=== PATIENT | male | born 1960 | race Caucasian/White ===

== ENCOUNTER 2016-02-27 09:26 | Inpatient (IN) | payer BC ==
[~2016-02-27] VITALS: Ht 180.3 cm; Wt 148.4 kg
[2016-02-27] VITALS (7 sets, daily range): BP systolic 110–173; BP diastolic 83–108
[~2016-02-27 09:26] MED LIST: AGM875T PO; ALBU8.5H2 IH; AMOX-358 PO; AMPI250C11 PO; ASPI-586 PO; ATEN-147 PO; B/P MED; CEPH500C PO; D-ME118S33 PO; DILANTIN; DILATIN; DOXY100C2 PO; DOXY100C42 PO; ENOX60DI12 SQ; FLUT16SP22 NS; HCTZ12.5T PO; HYDR-3454 PO; HYDR12.570 PO; HYDR25TA4 PO; LACT1CAP64 PO; LORA10CA PO; METR500T21 PO; MUPI22OI TP; NAPR500T3 PO; ONDA-42 PO; PHEN200C PO; PHEN300C PO; PHENYTEK PO; PHN100C; SULF1TAB35 PO; WARF1TAB PO
--- OUTSIDE RECORDS SUMMARY | 2016-02-27 09:32 | XMS REPORT | Continuity of Care Document ---
Author Author [facility] Organization [facility] Address Unknown Phone Unavailable Care Team Providers Care Border Measurer Name Role Phone BRYCE FORD MD PCP Insurance Providers Payer Name Policy Number [id number] Henry Jr 18 Self / Same As Patient Advance Directives Directive Response Recorded Date/Time Advance Directives Yes 10/17/13 2:11pm Health Care Power of Ethnic Origins Teacher Y DANIEL ATKINS 10/17/13 2:11pm Organ Donor No 10/17/13 2:11pm Problems No known problems or medical conditions. Medications Medication Dose Route Sig Days/Qty Instructions Order Date Discontinued Date Status [Dilatin] 12/23/06 12/23/06 Discontinued [Dilatin ] 12/23/06 01/10/12 Discontinued [Dilantin] 12/23/06 10/11/08 Discontinued Phenytoin Sodium 10/11/08 01/10/12 Discontinued Cephalexin Monohydrate (Keflex) 1 Each PO FOUR TIMES DAILY 40 Qty 10/1101/10/12 Discontinued [B/P Med] 12/02/11 01/10/12 Discontinued Doxycycline Hyclate (Vibramycin) 1 Each PO TWICE A DAY 10 Days 01/10/12 Discontinued Phenytoin Sodium 2 Each PO DAILY 600MG EOD, other 01/10/12 08/16/13 Discontinued Albuterol 2 Puff IH EVERY 4HRS PRN SHORTNESS OF BREATH 01/10/12 Active Hydrochlorothiazide 12.5 Mg PO BEDTIME 01/10/12 10/12/13 Discontinued Fluticasone Propionate 1 [place] NS DAILY PRN NASAL CONGESTION Active [Phenytek] 700 Mg PO DAILY 08/16/13 10/07/13 Discontinued Loratadine 10 Mg PO DAILY PRN CONGESTION NEEDED FOR CONGESTION 10/06 Active Phenytoin Sodium 300 Mg PO BEDTIME 10/07/13 Active Phenytoin Sodium 400 Mg PO BEDTIME TAKE 2 (200MG) CAPSULE WITH 1 (300MG ) [id number] DOSE 10/07/13 Active Atenolol 25 Mg PO DAILY 30 Days 10/13/13 Active Ondansetron Hcl 4 Mg PO EVERY 6 HOURS PRN 20 Qty 10/13/13 Active Hydrocodone Bit/Acetaminophen 1-2 Tab PO EVERY 4HRS PRN PAIN 30 Qty Active Social History Social History Problem Response Recorded Date/Time Alcohol Use Denies Use 10/17/2013 2:11pm Recreational Drug Use No 10/17/2013 2:11pm Recent Foreign Travel No 10/17/2013 2:11pm Recent Infectious Disease Exposure No 10/17/2013 2:11pm Hospitalization with Isolation Denies 10/17/2013 2:11pm Hospital Discharge Instructions No hospital discharge instructions. Plan of Care No plan of care. Functional Status No functional status results. Allergies, Adverse Reactions, Alerts Allergen Type Severity Reaction Status Last Updated No Known Drug Allergies Active 12/23/06 Immunizations Name Given Type Date of Pneumonia Vaccine 11/24/08 Historical Vital Signs No known vital signs results. Results Test Source Date Result Interp. Ref. Range Comments Activated Partial Thromboplast Time December 02, 2011 2:05pm 23 SEC L 24- 35 Alanine Aminotransferase (ALT/SGPT) January 10, 2012 6:01am 37 U/L N 30 -65 Comments to Manager Regional: drawn with iv Albumin January 10, 2012 6:01am 3.7 G/DL N 3.4-5.0 Comments to Manager Regional: drawn with iv Alkaline Phosphatase January 10, 2012 6:01am 144 U/L H 50-136 Comments to Manager Regional: drawn with iv Aspartate Amino Transf (AST/SGOT) January 10, 2012 6:01am 19 U/L N 15- 37 Comments to Manager Regional: drawn with iv BUN/Creatinine Ratio October 21, 2013 11:57am 13 - Band Neutrophils October 08, 2013 5:20am 1 % - Basophils # (Auto) October 08, 2013 5:20am 0.0 10^3/uL N 0.0-0.1 Basophils % (Manual) October 08, 2013 5:20am 0 % - Basophils (%) (Auto) October 08, 2013 5:20am 0 % N 0-10 Blood Urea Nitrogen October 21, 2013 11:57am 11 MG/DL N 7-18 Calcium Level October 21, 2013 11:57am 9.7 MG/DL N 8.5-10.1 Carbon Dioxide Level October 21, 2013 11:57am 24 MMOL/L N 21-32 Chloride Level October 21, 2013 11:57am 107 MMOL/L N 98-107 Cholesterol Level October 08, 2005 11:55am 203 MG/DL H -200 Creatinine October 21, 2013 11:57am 0.82 MG/DL N 0.60-1.30 Eosinophils # (Auto) October 08, 2013 5:20am 0.0 10^3/uL N 0.0-0.3 Eosinophils % (Manual) October 08, 2013 5:20am 0 % - Eosinophils (%) (Auto) October 08, 2013 5:20am 0 % N 0-10 Glucose Level October 21, 2013 11:57am 99 MG/DL N 70-105 HDL Cholesterol October 08, 2005 11:55am 37 MG/ML N 35-60 Hematocrit October 10, 2013 5:30am 32 % L 40-54 Hemoglobin October 10, 2013 5:30am 10.9 G/DL L 13.3-17.7 LDL Cholesterol October 08, 2005 11:55am 133 MG/DL H 0-129 Lymphocytes # (Auto) October 08, 2013 5:20am 1.5 X 10^3 N 1.0-4.0 Lymphocytes % (Manual) October 08, 2013 5:20am 7 % - Lymphocytes (%) (Auto) October 08, 2013 5:20am 12 % N 12-44 Magnesium Level October 21, 2013 11:57am 2.3 MG/DL N 1.8-2.4 Mean Corpuscular Hemoglobin October 10, 2013 5:30am 33 PG N 25-34 Mean Corpuscular Hemoglobin Concent October 10, 2013 5:30am 35 G/DL N 32- 36 Mean Corpuscular Volume October 10, 2013 5:30am 96 FL N 80-99 Mean Platelet Volume October 10, 2013 5:30am 9.4 FL N 7.4-10.4 Monocytes # (Auto) October 08, 2013 5:20am 1.2 X 10^3 H 0.0-1.0 Monocytes % (Manual) October 08, 2013 5:20am 11 % - Monocytes (%) (Auto) October 08, 2013 5:20am 10 % N 0-12 Myoglobin December 02, 2011 2:05pm 36 UG/L N 10-92 Neutrophils # (Auto) October 08, 2013 5:20am 9.7 X 10^3 H 1.8-7.8 Neutrophils % (Manual) October 08, 2013 5:20am 81 % - Neutrophils (%) (Auto) October 08, 2013 5:20am 78 % H 42-75 Phenytoin (Dilantin) Level October 28, 2013 8:30am 8.9 UG/ML L 10.0- 20.0 Comments to Manager Regional: HOME HEALTH TO DRAW Phosphorus Level October 07, 2013 5:05am 2.3 MG/DL N 2.3-4.7 Platelet Count October 10, 2013 5:30am 176 10^3/uL N 130-400 Potassium Level October 21, 2013 11:57am 4.5 MMOL/L N 3.6-5.0 Prostate Specific Antigen October 08, 2005 11:50am 1.01 - PSA EQ NORMAL RANGES MALE 0.0 - 2.50 NG/ML Prothromb Time International Ratio December 02, 2011 2:05pm 0.9 N 0.8- 1.4 INTERPRETIVE DATASUGGESTED THERAPEUTIC RANGE FOR INR'S : VENOUS THROMBOSIS, PULMONARY EMBOLISM, OR PREVENTION OF SYSTEMIC EMBOLISM (EG. IN ATRIAL FIBRILLATION): 2.0 - 3.0 MECHANICAL PROSTHETIC HEART VALVES: 2.5 - 3.5* *NOTE: INR'S UP TO 4.5 MAY BE NECESSARY IN SELECTED GROUPS OF HIGH RISK PATIENTS. [employer] [place] [employer]ANS CONSENSUS CONFERENCE ON ANTITHROMBOTIC THERAPY (2000). Prothrombin Time October 28, 2013 8:30am 25.5 SEC H 12.2-14.7 Comments to Manager Regional: HOME HEALTH TO DRAW Red Blood Count October 10, 2013 5:30am 3.27 10^6/uL L 4.35-5.85 Red Cell Distribution Width October 10, 2013 5:30am 13.8 % N 10.0-14.5 Sodium Level October 21, 2013 11:57am 139 MMOL/L N 135-145 Thyroid Stimulating Hormone (TSH) May 17, 2005 10:25am 1.55 ULU/ML N 0.34-5.60 Total Bilirubin January 10, 2012 6:01am 0.3 MG/DL N 0.0-1.0 Comments to Manager Regional: drawn with iv Total Protein January 10, 2012 6:01am 7.7 G/DL N 6.4-8.2 Comments to Manager Regional: drawn with iv Triglycerides Level October 08, 2005 11:55am 163 MG/DL H 30.0-150.0 Troponin I December 02, 2011 2:05pm < 0.10 NG/ML 0.00-0.10 Urine Bacteria December 23, 2006 9:53pm Negative - Has specimen been collected/obtained? YSpecimen Description VOID Urine Bilirubin December 23, 2006 9:53pm Negative - Has specimen been collected/obtained? YSpecimen Description VOID Urine Casts December 23, 2006 9:53pm None - Has specimen been collected/obtained? YSpecimen Description VOID Urine Clarity December 23, 2006 9:53pm Clear - Has specimen been collected/obtained? YSpecimen Description VOID Urine Color December 23, 2006 9:53pm Yellow - Has specimen been collected/obtained? YSpecimen Description VOID Urine Crystals December 23, 2006 9:53pm None - Has specimen been collected/obtained? YSpecimen Description VOID Urine Culture Indicated December 23, 2006 9:53pm No - Has specimen been collected/obtained? YSpecimen Description VOID Urine Glucose (UA) December 23, 2006 9:53pm Negative - Has specimen been collected/obtained? YSpecimen Description VOID Urine Ketones December 23, 2006 9:53pm Negative - Has specimen been collected/obtained? YSpecimen Description VOID Urine Leukocyte Esterase December 23, 2006 9:53pm Negative - Has specimen been collected/obtained? YSpecimen Description VOID Urine Mucus December 23, 2006 9:53pm Negative - Has specimen been collected/obtained? YSpecimen Description VOID Urine Nitrate December 23, 2006 9:53pm Negative - Has specimen been collected/obtained? YSpecimen Description VOID Urine Protein December 23, 2006 9:53pm Negative - Has specimen been collected/obtained? YSpecimen Description VOID Urine RBC December 23, 2006 9:53pm Rare /HPF - Has specimen been collected/obtained? YSpecimen Description VOID Urine Specific [place] December 23, 2006 9:53pm 1.005 L - Has specimen been collected/obtained? YSpecimen Description VOID Urine Squamous Epithelial Cells December 23, 2006 9:53pm None - Has specimen been collected/obtained? YSpecimen Description VOID Urine Urobilinogen December 23, 2006 9:53pm Normal MG/DL - Has specimen been collected/obtained? YSpecimen Description VOID Urine WBC December 23, 2006 9:53pm Rare /HPF - Has specimen been collected/obtained? YSpecimen Description VOID Urine pH December 23, 2006 9:53pm 7.0 - Has specimen been collected/ obtained? YSpecimen Description VOID VLDL Cholesterol October 08, 2005 11:55am 33 MG/DL N 5-40 Valproic Acid (Depakene) Level January 16, 2013 11:15am < 3.0 MCG/ML L 50.0-100.0 In some psychiatric disorders a therapeutic range si53-975 MCG/ML may be appropriate. White Blood Count October 10, 2013 5:30am 8.0 10^3/uL N 4.3-11.0 Glucometer October 08, 2013 5:23am 135 MG/DL H 70-110 Lab Scanned Report December 02, 2011 1:02pm LAB Reports [id number] - Estimat Glomerular Filtration Rate October 21, 2013 11:57am > 60 - GFR INTERPRETIVE DATA UNITS FOR ESTIMATED GFR (eGFR): mL/min/1.73 M2 REFERENCE RANGE FOR ESTIMATED GFR (eGFR) eGFR NORMAL eGFR >60 MODERATELY DECREASED eGFR 30-59 SEVERLY DECREASED eGFR 15-29 KIDNEY FAILURE <15 (OR DIALYSIS) Blood Morphology Comment October 08, 2013 5:20am NORMAL - Creatine Kinase December 02, 2011 2:05pm 81 U/L N 1-205 Cardiac Panel Pathologist Review December 02, 2011 2:05pm SEE CARDIAC PATH REV - INR Comment October 28, 2013 8:30am 2.4 H 0.8-1.4 INTERPRETIVE DATASUGGESTED THERAPEUTIC RANGE FOR INR'S: VENOUS THROMBOSIS, PULMONARY EMBOLISM, OR PREVENTION OF SYSTEMIC EMBOLISM (EG. IN ATRIAL FIBRILLATION): 2.0 - 3.0 MECHANICAL PROSTHETIC HEART VALVES: 2.5 - 3.5* *NOTE: INR'S UP TO 4.5 MAY BE NECESSARY IN SELECTED GROUPS OF HIGH RISK PATIENTS. [employer] [place] [employer] CONSENSUS CONFERENCE ON ANTITHROMBOTIC THERAPY (2000). MRSA Screen Nasal September 29, 2013 1:05pm MRSA not isolated Gram Stain Bite-Leg, Right October 11, 2008 5:45am Procedures No known history of procedures. Encounters Encounter Location Date/Time Registered Recurring [facility] 11/17/13 8:20am Registered Clinic [facility] 11/11/13 2:00pm Discharged [facility] 11/11/13 8:17am Registered Clinic [facility] 11/09/13 8:06am Registered Clinic [facility] 11/04/13 12:30pm Registered Clinic [facility] 11/02/13 12:00pm Registered Clinic [facility] 10/28/13 8:30am Registered Clinic [facility] 10/21/13 11:46am Discharged Rec[facility]ring [facility] 09/20/13 8:28am
[2016-02-27] MEDS ORDERED: NS IV 1000 ML 1,000 ML IV ONE (09:48)
[2016-02-27 09:59] LABS: BASOPHILS % (AUTO) 0 % (0-10); EOSINOPHILS # (AUTO) 0.1 10^3/uL (0.0-0.3); EOSINOPHILS % (AUTO) 1 % (0-10); LYMPHOCYTES # (AUTO) 2.4 X 10^3 (1.0-4.0); LYMPHOCYTES % (AUTO) 17 % (12-44); MEAN CORPUSCULAR HEMOGLOBIN 33 PG (25-34); MEAN CORPUSCULAR HGB CONC 35 G/DL (32-36); MEAN CORPUSCULAR VOLUME 94 FL (80-99); MEAN PLATELET VOLUME 9.6 FL (7.4-10.4); MONOCYTES # (AUTO) 1.1 X 10^3 (0.0-1.0); MONOCYTES % (AUTO) 8 % (0-12); NEUTROPHILS # (AUTO) 10.5 X 10^3 (1.8-7.8); NEUTROPHILS % (AUTO) 74 % (42-75); PLATELET COUNT 199 10^3/uL (130-400); RED BLOOD COUNT 5.38 10^6/uL (4.35-5.85); RED CELL DISTRIBUTION WIDTH 14.1 % (10.0-14.5); WHITE BLOOD COUNT 14.1 10^3/uL (4.3-11.0)
[2016-02-27 10:16] LABS: ALANINE AMINOTRANSFERASE 45 U/L (0-55); ALBUMIN 3.9 G/DL (3.2-4.5); ANION GAP 14 MMOL/L (5-14); ASPARTATE AMINO TRANSFERASE 37 U/L (5-34); BILIRUBIN,TOTAL 0.5 MG/DL (0.1-1.0); BLOOD UREA NITROGEN 16 MG/DL (7-18); BUN/CREATININE RATIO 20; CALCIUM 9.1 MG/DL (8.5-10.1); CARBON DIOXIDE 18 MMOL/L (21-32); CHLORIDE 107 MMOL/L (98-107); CREATININE SERUM 0.81 MG/DL (0.60-1.30); GFR ESTIMATED > 60; GLUCOSE 108 MG/DL (70-105); SODIUM 139 MMOL/L (135-145); hs C REACTIVE PROTEIN 1.83 MG/DL (0.00-0.50)
--- NOTE | 2016-02-27 10:16 | Diagnostic Imaging Report ---
EXAMINATION: Portable upright radiograph of the chest. INDICATION: Shortness of breath. FINDINGS: There is a 9 mm nodular density in the right upper lobe. Further evaluation with CT is recommended. The heart size is moderately enlarged. There is minimal vascular congestion. No anette pulmonary edema. There is suggestion of mild infiltrate in the lateral aspect of the mid left lung zone. No effusion or pneumothorax. The mediastinum and kevon appear unremarkable. IMPRESSION: 1. Indeterminate 9 mm right upper lobe pulmonary nodule. Further evaluation with a CT scan is recommended. 2. Cardiomegaly with minimal vascular congestion. 3. Suggestion of mild infiltrate in the lateral mid left lung. Dictated by: Dictated on workstation # [id number]
[2016-02-27 10:30] LABS: BAND NEUTROPHILS 2 %; BASOPHILS % (MANUAL) 0 %; EOSINOPHILS % (MANUAL) 0 %; LYMPHOCYTES % (MANUAL) 21 %; NEUTROPHILS % (MANUAL) 72 %
[2016-02-27 10:30] LABS: BILIRUBIN,URINE NEGATIVE (NEGATIVE); KETONES,URINE NEGATIVE (NEGATIVE); LEUKOCYTE ESTERASE ,URINE 1+ (NEGATIVE); NITRITE,URINE NEGATIVE (NEGATIVE); PH,URINE 6 (5-9); PROTEIN,URINE 2+ (NEGATIVE); UROBILINOGEN,URINE NORMAL (NORMAL)
[2016-02-27 10:38] LABS: SQUAMOUS EPITHELIAL CELL,UR RARE /HPF; WBC,URINE RARE /HPF
--- NOTE | 2016-02-27 10:40 | ED General ---
General Chief Complaint: Respiratory Problems Stated Complaint: SOA Nursing Triage Note: PT PICKED UP FROM VEHICLE WITH W/C BY MICHI Cevallos AND THIS RN WITH CC OF SOB, RECENT HX OF BRONCHITIS. Nursing Sepsis Screen: No Definite Risk Source of Information: Patient Exam Limitations: No Limitations History of Present Illness Time Seen by Provider: 09:32 Initial Comments Here with report of bronchitis symptoms for the last 2 weeks and states that he' s had increasing shortness of breath today. States that he is having any use increasing albuterol and that has not helped the shortness of breath. Timing/Duration: 1 Week, Getting Worse Severity: Moderate Associated Systoms: No Chest Pain, Cough Fever/ChillsNo Nausea/Vomiting, Shortness of AirNo Weakness Allergies and Home Medications Allergies Coded Allergies: No Known Drug Allergies (Verified , 12/23/06) Home Medications Amoxicillin/Potassium Clav 1 Each Tablet #14 1 EACH PO BID Prescribed by: INDERJIT DELGADO on 02/19/16 1105 Aspirin 81 Mg Tablet.dr 81 MG PO DAILY (Reported) D-Methorphan Hb/P-Epd HCl/Bpm 118 Ml Syrup #120 5 ML PO Q4H PRN PRN CONGESTION Prescribed by: INDERJIT DELGADO on 02/19/16 1102 Hydrochlorothiazide 25 Mg Tablet 25 MG PO DAILY (Reported) Lactobacillus Combo No.11 1 Each Cap.sprink 1 EACH PO BID (Reported) Phenytoin Sodium Extended 300 Mg Capsule #30 300 MG PO HS (Reported) TAKES WITH 2 (200 MG) CAPS TO EQUAL 700MG TOTAL DOSE Constitutional: see HPI chills fever weakness EENTM: nose congestion see HPI Respiratory: see HPI cough short of breath wheezing Cardiovascular: see HPINo chest pain, No edema Gastrointestinal: no symptoms reportedNo nausea, No vomiting Genitourinary: no symptoms reported Musculoskeletal: no symptoms reportedNo back pain, No muscle pain Skin: no symptoms reported Psychiatric/Neurological: No Symptoms Reported All Other Systems Reviewed Negative Unless Noted: Yes Past Bpgrcpv-Gsdnne-Bveyic Hx Patient Social History Alcohol Use: Denies Use Recreational Drug Use: No Smoking Status: Never a Smoker Recent Foreign Travel: No Contact w/Someone Who Travel: No Recent Infectious Disease Expo: No Recent Hopitalizations: Yes (, FISTULA REPAIR) Physical Abuse Screen: No Sexual Abuse: No Immunizations Up To Date Tetanus Booster (TDap): More than 5yrs Date of Pneumonia Vaccine: Nov 24, 2008 Date of Influenza Vaccine: Feb 22, 2014 Seasonal Allergies Seasonal Allergies: Yes Surgeries HX Surgeries: Yes (BOWEL RESECT/COLOSTOMY/REVERSAL,VENTRAL HERNIA, BACK,TENDON/ HAND REPAIR ) Surgeries: Abdominal, Bowel Surgery, Orthopedic Respiratory Hx Respiratory Disorders: Yes Respiratory Disorders: Pulmonary Embolism Cardiovascular Hx Cardiac Disorders: Yes Cardiac Disorders: Deep Vein Thrombosis, Hypertension Neurological Hx Neurological Disorders: Yes (NO SEIZURE FOR SEVERAL YEARS BUT TAKES MEDICINE ) Neurological Disorders: Seizure Disorder Reproductive System Hx Reproductive Disorders: No Genitourinary Hx Genitourinary Disorders: Yes Genitourinary Disorders: Kidney Stones Gastrointestinal Hx Gastrointestinal Disorders: Yes (COLON RESECTION/ILEOSTOMY/REVERSAL. CHRONIC ABDOMINAL WOUND) Gastrointestinal Disorders: Diverticulosis Musculoskeletal Hx Musculoskeletal Disorders: Yes (ARTHRITIS IN FEET AND BACK) Musculoskeletal Disorders: Arthritis, Chronic Back Pain Endocrine Hx Endocrine Disorders: Yes (MORBID OBESITY) HEENT HX ENT Disorders: Yes (GLASSES) Cancer Hx Cancer: No Psychosocial Hx Psychiatric Problems: Yes Behavioral Health Disorders: Anxiety Integumentary HX Skin/Integumentary Disorder: Yes (CHRONIC POST-OP ABDOMINAL WOUND) Blood Transfusions Hx Blood Disorders: No Reviewed Nursing Assessment Reviewed/Agree w Nursing PMH: Yes Family Medical History Significant Family History: Heart Disease, Cancer, Hypertension, Psychiatric Problems Family Medial History: Arthritis G8 SISTER Asthma G8 SISTER Colon cancer 19 MOTHER FH: breast cancer 19 MOTHER Heart attack 19 FATHER Hypertension G8 SISTER Psychosocial problem G8 BROTHER (DOWN'S SYNDROME) No Family History of: AIDS Alcoholism Alzheimer's disease Completed stroke Diabetes mellitus Kidney disease Myocardial infarction Parkinson's disease Prostate cancer Respiratory disorder Seizure disorder Thyroid disease Physical Exam-Suspected Sepsis Physical Exam Vital Signs Vital Sign - Last 12Hours 02/27/16 09:29 Temp 97.8 Pulse 118 Resp 24 B/P 154/125 Pulse Ox 91 O2 Delivery Room Air O2 Flow Rate 2 Capillary Refill : Less Than 3 Seconds Blood Pressure Mean: 135 General Appearance: No Apparent Distress HEENT: PERRL/EOMI Pharynx Normal Neck: Non Tender Supple Respiratory: Lungs Clear Normal Breath Sounds Cardiovascular: No Murmur Tachycardia Gastrointestinal: Non Tender Soft Back: Normal Inspection No CVA Tenderness No Vertebral Tenderness Extremity: Non Tender No Calf Tenderness Neurologic/Psychiatric: Alert Oriented x3 Skin: normal color warm/dryNo rash Progress/Results/Core Measures Suspected Sepsis Recent Fever Within 48 Hours: No Infection Criteria Present: None New/Unexplained Altered Menta: No Sepsis Screen: No Definite Risk Sepsis Diagnosis: SIRS Temperature:97.8 Pulse: 118 Respiratory Rate: 24 Laboratory Tests 02/27/16 09:50: White Blood Count 14.1H Blood Pressure 154 /125 Mean: 135 Laboratory Tests 02/27/16 09:30: INR Comment 0.9 02/27/16 09:50: Creatinine 0.81, Platelet Count 199, Total Bilirubin 0.5 Results/Orders Lab Results Laboratory Tests Test 02/27/16 09:30 02/27/16 09:50 02/27/16 10:20 Range/Units Activated Partial Thromboplast Time 23 L 24-35 SEC INR Comment 0.9 0.8-1.4 Prothrombin Time 11.9 L 12.2-14.7 SEC Alanine Aminotransferase (ALT/SGPT) 45 0-55 U/L Albumin 3.9 3.2-4.5 G/DL Alkaline Phosphatase 147 H 40-136 U/L Anion Gap 14 5-14 MMOL/L Aspartate Amino Transf (AST/SGOT) 37 H 5-34 U/L BUN/Creatinine Ratio 20 Band Neutrophils 2 % Basophils # (Auto) 0.0 0.0-0.1 10^3/uL Basophils % (Manual) 0 % Basophils (%) (Auto) 0 0-10 % Blood Morphology Comment NORMAL Blood Urea Nitrogen 16 7-18 MG/DL C-Reactive Protein High Sensitivity 1.83 H 0.00-0.50 MG/DL Calcium Level 9.1 8.5-10.1 MG/DL Carbon Dioxide Level 18 L 21-32 MMOL/L Chloride Level 107 98-107 MMOL/L Creatinine 0.81 0.60-1.30 MG/DL Eosinophils # (Auto) 0.1 0.0-0.3 10^3/uL Eosinophils % (Manual) 0 % Eosinophils (%) (Auto) 1 0-10 % Estimat Glomerular Filtration Rate > 60 Glucose Level 108 H 70-105 MG/DL Hematocrit 50 40-54 % Hemoglobin 17.7 13.3-17.7 G/DL Lactic Acid Level 2.8 *H 0.5-2.0 MMOL/L Lymphocytes # (Auto) 2.4 1.0-4.0 X 10^3 Lymphocytes % (Manual) 21 % Lymphocytes (%) (Auto) 17 12-44 % Mean Corpuscular Hemoglobin 33 25-34 PG Mean Corpuscular Hemoglobin Concent 35 32-36 G/DL Mean Corpuscular Volume 94 80-99 FL Mean Platelet Volume 9.6 7.4-10.4 FL Monocytes # (Auto) 1.1 H 0.0-1.0 X 10^3 Monocytes % (Manual) 5 % Monocytes (%) (Auto) 8 0-12 % Neutrophils # (Auto) 10.5 H 1.8-7.8 X 10^3 Neutrophils % (Manual) 72 % Neutrophils (%) (Auto) 74 42-75 % Platelet Count 199 130-400 10^3/uL Potassium Level 4.0 3.6-5.0 MMOL/L Red Blood Count 5.38 4.35-5.85 10^6/uL Red Cell Distribution Width 14.1 10.0-14.5 % Sodium Level 139 135-145 MMOL/L Total Bilirubin 0.5 0.1-1.0 MG/DL Total Protein 8.0 6.4-8.2 G/DL White Blood Count 14.1 H 4.3-11.0 10^3/uL Urine Bacteria NEGATIVE /HPF Urine Bilirubin NEGATIVE NEGATIVE Urine Casts NONE /LPF Urine Clarity CLEAR Urine Color YELLOW Urine Crystals NONE /LPF Urine Culture Indicated NO Urine Glucose (UA) NEGATIVE NEGATIVE Urine Ketones NEGATIVE NEGATIVE Urine Leukocyte Esterase 1+ H NEGATIVE Urine Mucus SMALL H /LPF Urine Nitrite NEGATIVE NEGATIVE Urine Protein 2+ H NEGATIVE Urine RBC NONE /HPF Urine RBC (Auto) NEGATIVE NEGATIVE Urine Specific [place] 1.025 H 1.016-1.022 Urine Squamous Epithelial Cells RARE /HPF Urine Urobilinogen NORMAL NORMAL MG/DL Urine WBC RARE /HPF Urine pH 6 5-9 My Orders Orders-JEROMY OCAMPO MD Cbc With Automated Diff (02/27/16 09:48) Comprehensive Metabolic Panel (02/27/16 09:48) Hs C Reactive Protein (02/27/16 09:48) Lactic Acid Analyzer (02/27/16 09:48) Ua Culture If Indicated (02/27/16 09:48) Blood Culture (02/27/16 09:48) Influenza A And B Antigens (02/27/16 09:48) Sputum Culture (02/27/16 09:48) Chest 1 View, Ap/Pa Only (02/27/16 09:48) Ekg Tracing (02/27/16 09:48) O2 (02/27/16 09:48) Monitor-Rhythm Ecg Trace Only (02/27/16 09:48) Saline Lock/Iv-Start (02/27/16 09:48) Ns Iv 1000 Ml (Sodium Chloride 0.9%) (02/27/16 09:48) Manual Differential (02/27/16 09:50) Ct Angio Chest W (02/27/16 11:00) Iohexol Injection (Omnipaque 350 Mg/Ml 1 (02/27/16 11:15) Ns (Ivpb) (Sodium Chloride 0.9% Ivpb Bag (02/27/16 11:15) Protime With Inr (02/27/16 11:30) Partial Thromboplastin Time (02/27/16 11:30) Heparin (Bolus Per Protocol) (Heparin (B (02/27/16 11:45) Heparin (Bolus Per Protocol) (Heparin (B (02/27/16 11:27) Heparin Drip [id number] Unit/500ml (Heparin (02/27/16 11:27) Medications Given in ED Current Medications Medications Dose Ordered Sig/Giles Route Start Time Stop Time Status Last Admin Dose Admin Heparin Sodium (Porcine) HEPARIN FULL PROTOC... ONCE ONCE IV 02/27/16 11:45 02/27/16 11:46 DC 02/27/16 11:44 5,000 UNIT Iohexol 150 ml ONCE ONCE IV 02/27/16 11:15 02/27/16 11:28 DC 02/27/16 11:16 140 ML Sodium Chloride 100 ml ONCE ONCE IV 02/27/16 11:15 02/27/16 11:28 DC 02/27/16 11:16 80 ML Sodium Chloride 1,000 ml @ 0 mls/hr Q0M ONCE IV 02/27/16 09:48 02/27/16 09:51 DC 02/27/16 09:59 1,000 MLS/HR Vital Signs/I&O Vital Sign - Last 12Hours 02/27/16 09:29 Temp 97.8 Pulse 118 Resp 24 B/P 154/125 Pulse Ox 91 O2 Delivery Room Air O2 Flow Rate 2 Capillary Refill : Less Than 3 Seconds Blood Pressure Mean: 135 Progress Note : Progress Note Seen and evaluated. IV, labs, chest x-ray, UA, normal saline 1 L bolus ordered. Monitor patient. Blood cultures and lactic acid were ordered. Patient's lactic acid is elevated. Heart rate improved with fluids. Findings concerning for pulmonary embolism and there is a lung nodule that is requiring further evaluation with CT. We will do CT angiogram of the chest. ECG Initial ECG Impression Date: Feb 27, 2016 Initial ECG Impression Time: 09:37 Initial ECG Rate: 116 Initial ECG Rhythm: S.Tach Comment Sinus tachycardia with rightward axis. No evidence of ST elevation SC. Similar to previous but increased rate. Interpreted by me. Diagnostic Imaging Diagonstic Imaging: Xray Plain Films/CT/US/NM/MRI: chest Comments [place] NAME: [facility] REC#: [id number] PT STATUS: REG ER : 1960 PHYSICIAN: JEROMY OCAMPO MD ADMIT DATE: 02/27/16/ER Draft Date of Exam:02/27/16 CHEST 1 VIEW, AP/PA ONLY EXAMINATION: Portable upright radiograph of the chest. INDICATION: Shortness of breath. FINDINGS: There is a 9 mm nodular density in the right upper lobe. Further evaluation with CT is recommended. The heart size is moderately enlarged. There is minimal vascular congestion. No anette pulmonary edema. There is suggestion of mild infiltrate in the lateral aspect of the mid left lung zone. No effusion or pneumothorax. The mediastinum and kevon appear unremarkable. IMPRESSION: 1. Indeterminate 9 mm right upper lobe pulmonary nodule. Further evaluation with a CT scan is recommended. 2. Cardiomegaly with minimal vascular congestion. 3. Suggestion of mild infiltrate in the lateral mid left lung. Dictated on workstation # [id number] Dict: 02/27/16 1006 Trans: 02/27/16 1016 [id number] Interpreted by: KARLY ZHAO MD Electronically signed by: Departure Communication Time/Spoke to Admitting Phy: 11:40 Impression Impression: Primary Impression: Bilateral pulmonary embolism Additional Impression: Hypoxia Disposition: ADMITTED INPATIENT Condition: Critical Decision to Admit Reason: Admit from ER (General) Decision to Admit/Date: Feb 27, 2016 Time/Decision to Admit Time: 11:40 Departure-Patient Inst. Referrals: INGRID DOSHI MD (PCP/Family) Primary Care Physician JEROMY OCAMPO MD Feb 27, 2016 10:40
[2016-02-27] MEDS ORDERED: NS 100 ML (IVPB) BAG IV ONE (11:15)
[2016-02-27] MEDS ORDERED: IOHEXOL 350 MG/ML 150 ML (OMNIPAQUE 350) VIAL IV ONE (11:15)
[2016-02-27] MEDS ORDERED: HEParin DRIP 25000 UNIT/500ML 500 ML IV ONE (11:27)
[2016-02-27] MEDS ORDERED: HEParin 1000 UNIT/ML (10ML VIAL) FOR BOLUS ONE (11:27)
[2016-02-27 11:45] LABS: INR 0.9 (0.8-1.4); PROTHROMBIN TIME PATIENT 11.9 SEC (12.2-14.7)
[2016-02-27] MEDS ORDERED: HEParin 1000 UNIT/ML (10ML VIAL) FOR BOLUS IV ONE (11:45)
--- NOTE | 2016-02-27 11:50 | Diagnostic Imaging Report ---
PROCEDURE: CT angiography of the chest with contrast. TECHNIQUE: Multiple contiguous axial images were obtained through the chest after uneventful bolus administration of intravenous contrast. Reconstructed CTA MIP acquisitions were also performed. INDICATION: Shortness of breath. Questionable lung nodule in the right lung apex. 140 mL of Omnipaque 350 is administered intravenously. FINDINGS: There is a large burden of pulmonary embolism seen bilaterally with a saddle embolus at the bifurcation of the pulmonary trunk extending to the main pulmonary arteries and to lobar, segmental, and subsegmental levels on both sides involving nearly all segments. This is associated with increased RV/ LV ratio, more than 1.1, suggestive of right ventricular strain. The thoracic aorta is normal in caliber. There is no dissection. There is no mediastinal mass and no lymphadenopathy in the mediastinum or in the kevon. No lymphadenopathy in the axilla. There are groundglass pulmonary opacities in the right upper lobe and in the lingula presumably related to minor infarcts or pneumonitis. No suspicious nodule or mass. The osseous structures demonstrate suggestion of vertebral body multiple hemangiomas in the thoracic spine with no aggressive destructive mass, however, identified. There is an incidental right adrenal nodule measuring 2.1 cm, in the absence of history of primary malignancy, more likely to be an adrenal adenoma. IMPRESSION: 1. Large burden of pulmonary embolism with suggestion of right ventricular strain. 2. Mild peripheral pulmonary opacities in the lingula and right upper lobe are probably related to tiny pulmonary infarcts. 3. Incidental note of a 2.1-cm right adrenal nodule. In the absence of history of primary malignancy, this is more likely to be an incidental adenoma. Dictated by: Dictated on workstation # [id number]
[2016-02-27] MEDS ORDERED: CATHETER FLUSH 10 ML SYR IV PRN (14:00)
[2016-02-27] MEDS ORDERED: RT-ALBUTEROL SULF 2.5 MG/3 ML PRE-MIX VIAL ONE (14:04)
[2016-02-27] MEDS ORDERED: RT-ALBUTEROL SULF 2.5 MG/3 ML PRE-MIX VIAL INH PRN (14:15)
[2016-02-27] MEDS ORDERED: PRD20T PO (14:19)
[2016-02-27] MEDS ORDERED: NAPR500T3 PO (14:19)
[2016-02-27] MEDS ORDERED: RT-ALBUINH IH (14:19)
[2016-02-27] MEDS ORDERED: AMOX-358 PO (14:19)
[2016-02-27] MEDS ORDERED: ASPI325T32 PO (14:19)
[2016-02-27] MEDS ORDERED: PHEN200C PO (14:19)
[2016-02-27] MEDS ORDERED: BUDE10.2 IH (14:19)
[2016-02-27] MEDS: NS IV 1000 ML 1,000 ML IV SCH (15:47)
--- NOTE | 2016-02-27 16:44 | History & Physicial ---
History of Present Illness History of Present Illness Reason for visit/HPI PT IS A 55 Y/O MALE WHO IS KNOWN TO ME FROM CLINIC. THE PATIENT REPORTS THAT HE HAS NOT BEEN FEELING WELL FOR SEVERAL WEEKS. APPARENTLY, AZAM WENT TO THE HOSPITAL AFTER ALIA DUE TO PERSISTENT COUGHING AND FATIGUE. HE STATES THAT HE WAS GIVEN ANTIBIOTICS, INFORMED THAT HE HAD BRONCHITIS AND HE IMPROVED SLIGHTLY WITH THE ANTIBIOTICS. HE WAS FEELING BETTER WHEN HE WENT TO MY OFFICE LAST WEEK FOR A "QUICK CHECK ON MY LUNGS BEFORE NEW YEARS". HE STATES THAT HE HAD BEEN FEELING A LITTLE BIT BETTER, AFTER BEING SEEN LAST FRIDAY, THEN OVER THE WEEKEND HE STARTED TO GET FATIGUED AGAIN AND SHORT OF BREATH. HE REPORTS THAT LAST NIGHT HIS SHORTNESS OF BREATH BECAME RATHER EXTREME AND WAS FEELING SO POORLY THAT HE DECIDED TO GO TO THE EMERGENCY DEPARTMENT FOR FURTHER EVALUATION. HE WAS FOUND TO HAVE AN ABNORMALITY ON CT SCAN, THEN A CT ANGIO SHOWED A SADDLE EMBOLUS IN HIS PULMONARY ARTERY. AZAM WAS STARTED ON IV HEPARIN DRIP AND ADMITTED TO THE ICU FOR FURTHER WORK-UP. Date of Admission Feb 27, 2016 at 12:11 I consulted on this patient on 02/27/16 16:44 Attending Physician Ingrid Salamanca MD Admitting Physician Ingrid Salamanca MD Consult SAE RODAS DO Allergies and Home Medications Allergies Coded Allergies: No Known Drug Allergies (Verified , 12/23/06) Home Medications Albuterol Sulfate 18 Gm Hfa.aer.ad 1 PUFF IH Q4H PRN PRN SHORTNESS OF BREATH ( Reported) Amoxicillin/Potassium Clav 1 Each Tablet 1 TAB PO BID (Reported) #14 FILLED 02-19-16 AND #6 FILLED 02-24-16 Aspirin 325 Mg Tablet.dr 325 MG PO HS (Reported) Budesonide/Formoterol Fumarate 10.2 Gm Hfa.aer.ad 1 PUFF IH BID (Reported) D-Methorphan Hb/P-Epd HCl/Bpm 118 Ml Syrup #120 5 ML PO Q4H PRN PRN CONGESTION Prescribed by: INDERJIT DELGADO on 02/19/16 1102 Hydrochlorothiazide 25 Mg Tablet 25 MG PO HS (Reported) Lactobacillus Combo No.11 1 Each Cap.sprink 1 CAP PO BID (Reported) Naproxen 500 Mg Tablet 500 MG PO BID PRN PRN PAIN (Reported) Phenytoin Sodium Extended 300 Mg Capsule #30 300 MG PO HS (Reported) TAKES WITH 2 (200 MG) CAPS TO EQUAL 700MG TOTAL DOSE Phenytoin Sodium Extended 200 Mg Capsule 400 MG PO HS (Reported) TAKES 2 (200MG) CAPSULES ALONG WITH A 300MG FOR A TOTAL DAILY DOSE OF 700MG Prednisone 20 Mg Tab 5Days 40 MG PO (Reported) #10 TABS FILLED 02-23-16 TAKES 2 (20MG) TABLETS Past Yvsecov-Ixrlxe-Awjymc Hx Patient Social History Marrital Status: Number of Children: 0 Number of living children: 0 Living Status: LIVES AT HOME WITH HIS SPOUSE Employed/Student: employed Alcohol Use: Denies Use Recreational Drug Use: No Smoking Status: Never a Smoker 2nd Hand Smoke Exposure: No Physical Abuse Screen: No Sexual Abuse: No Recent Foreign Travel: No Contact w/other who traveled: No Recent Hopitalizations: Yes (, FISTULA REPAIR) Recent Infectious Disease Expo: No Immunizations Up To Date Tetanus Booster (TDap): More than 5yrs Date of Pneumonia Vaccine: Nov 24, 2008 Date of Influenza Vaccine: Feb 22, 2014 Seasonal Allergies Seasonal Allergies: Yes Surgeries HX Surgeries: Yes (BOWEL RESECT/COLOSTOMY/REVERSAL,VENTRAL HERNIA, BACK,TENDON/ HAND REPAIR ) Surgeries: Abdominal, Bowel Surgery, Orthopedic Respiratory Hx Respiratory Disorders: Yes Cardiovascular Hx Cardiovascular Disorders: Yes Cardiac Disorders: Deep Vein Thrombosis, Hypertension Neurological Hx Neurological Disorders: Yes (NO SEIZURE FOR SEVERAL YEARS BUT TAKES MEDICINE ) Neurological Disorders: Seizure Disorder Reproductive System Hx Reproductive Disorders: No Genitourinary Hx Genitourinary Disorders: Yes Genitourinary Disorders: Kidney Stones Gastrointestinal Hx Gastrointestinal Disorders: Yes (COLON RESECTION/ILEOSTOMY/REVERSAL. CHRONIC ABDOMINAL WOUND) Gastrointestinal Disorders: Diverticulosis Musculoskeletal Hx Musculoskeletal Disorders: Yes (ARTHRITIS IN FEET AND BACK) Musculoskeletal Disorders: Arthritis, Chronic Back Pain Endocrine Hx Endocrine Disorders: Yes (MORBID OBESITY) HEENT HX ENT Disorders: Yes (GLASSES) Cancer Hx Cancer: No Psychosocial Hx Psychiatric Problems: Yes Behavioral Health Disorders: Anxiety Integumentary HX Skin/Integumentary Disorder: Yes (CHRONIC POST-OP ABDOMINAL WOUND) Blood Transfusions Hx Blood Disorders: No Adverse Reaction to a Blood Tr: No Reviewed Nursing Assessment Reviewed/Agree w Nursing PMH: Yes Family Medical History Significant Family History: Heart Disease, Cancer, Hypertension, Psychiatric Problems Family Hx: Arthritis G8 SISTER Asthma G8 SISTER Colon cancer 19 MOTHER FH: breast cancer 19 MOTHER Heart attack 19 FATHER Hypertension G8 SISTER Psychosocial problem G8 BROTHER (DOWN'S SYNDROME) No Family History of: AIDS Alcoholism Alzheimer's disease Completed stroke Diabetes mellitus Kidney disease Myocardial infarction Parkinson's disease Prostate cancer Respiratory disorder Seizure disorder Thyroid disease Constitutional: No chills, diaphoresisNo dizziness, No fever, malaise weakness EENTM: No hoarseness, No mouth pain, No nose pain, No throat pain, No throat swelling Respiratory: cough dyspnea on exertion orthopnea short of breath Cardiovascular: No chest pain, No edema, No palpitations, No syncope Gastrointestinal: No abdominal pain, No constipation, diarrhea (LOOSE STOOLS FOR 2-3 DAYS) Genitourinary: No frequency, No hematuria, No hesitancy, No incontinence, No nocturia Musculoskeletal: No back pain, No joint pain, No joint swelling, No muscle pain , No muscle weakness Skin: No lesions, No rash Psychiatric/Neurological: Denies Anxiety, Denies Depressed, Seizure (HX OF SEIZURE DISORDER) All Other Systems Reviewed Negative Unless Noted: Yes Physical Exam Vital Signs Vital Sign - Last 12Hours 02/27/16 09:29 Temp 97.8 Pulse 118 Resp 24 B/P 154/125 Pulse Ox 91 O2 Delivery Room Air O2 Flow Rate 2 Capillary Refill : Less Than 3 Seconds General Appearance: WD/WN Mild Distress Obese Eyes: Bilateral Eye EOMI, Bilateral Eye Normal Inspection, Bilateral Eye PERRL HEENT: PERRL/EOMI Pharynx Normal Neck: Full Range of Motion Supple Respiratory: Chest Non Tender Decreased Breath Sounds Other (TACHYPNEA) Cardiovascular: Regular Rate, Rhythm No Edema Gastrointestinal: Normal Bowel Sounds No Organomegaly No Pulsatile Mass Non Tender Soft Rectal: Deferred Back: Normal Inspection No CVA Tenderness No Vertebral Tenderness Extremity: Normal Capillary Refill Normal Range of Motion Non Tender No Calf Tenderness No Pedal Edema Neurologic/Psychiatric: Alert Oriented x3 No Motor/Sensory Deficits 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 DR. RODAS TO EVAL PT TOMORROW MORNING. THE PATIENT IS ON PHENYTEK FOR SEIZURE DISORDER, HAS BEEN ON THIS MEDICATION FOR YEARS WITH EXCELLENT SEIZURE CONTROL. HE IS NOT WILLING TO STOP THIS MEDICATION FOR HIS ANTICOAGULANT. I HAVE REVIEWED THE MEDICATION PROFILE FOR PHENYTEK AND ALL OF THE AVAILABLE ORAL ANTICOAGULANTS. EACH OF THE ORAL ANTICOAGULANTS HAVE INTERACTIONS WITH PHENYTOIN/PHENYTEK - XARELTO APPEARS TO BE THE BEST OPTION - RECOMMENDATIONS ARE FOR INCREASED DOSE OF XARELTO IF THE PHENYTOIN MUST BE CO-ADMINISTERED. THE REPORTS SHOW THAT PHENYTOIN AND COUMADIN CO-ADMINISTRATION WILL INCREASE ANTICOAGULANT EFFETS, THEN DECREASE THE EFFECTS IF USED FOR MORE THAN 2 WEEKS WITH "ADDITIVE EFFECTS" ON PT/INR. I WILL DISCUSS THIS WITH PHARMACY TOMORROW. DYSPNEA - IMPROVED WITH OXYGEN. HYPERTENSION - WILL MONITOR SYMPTOMS - MAY RESTART HOME ANTIHYPERTENSIVES TOMORROW. GI PROPHYLAXIS - START PROTONIX PO BID. PT ON HEPARIN FOR TREATMENT OF PULMONARY EMBOLUS - WILL ORDER ULTRASOUND OF BILATERAL LOWER EXTREMITIES - THEREFORE NO USE OF SCD'S. Admission Diagnosis PULMONARY EMBOLUS DYSPNEA RECENT BRONCHITIS SEIZURE DISORDER HYPERTENSION INGRID SALAMANCA MD Feb 27, 2016 16:44
[2016-02-27] MEDS ORDERED: BPM PO PRN (17:30)
[2016-02-27] MEDS ORDERED: [UNRECOGNIZED DRUG - OTHER] PO PRN (17:30)
[2016-02-27] MEDS ORDERED: P EPD HCL PO PRN (17:30)
[2016-02-27] MEDS ORDERED: D METHORPHAN HB PO PRN (17:30)
[2016-02-27] MEDS ORDERED: PATIENT MAY USE OWN MED,SINGLE MED PO SCH ×2 (17:30)
[2016-02-27] MEDS: LACTOBACILLUS Acidoph/Bulgar (LACTINEX/FLORANEX) TAB PO SCH ×2 (18:00→21:42)
[2016-02-27] MEDS: HEParin 1000 UNIT/ML (10ML VIAL) FOR BOLUS IV SCH (18:01)
--- NOTE | 2016-02-27 18:43 | Diagnostic Imaging Report ---
INDICATION: Pulmonary embolus COMPARISON: None FINDINGS: There is occlusive thrombus seen within the popliteal veins bilaterally involving about 7 cm of vein on the right and 5 cm on the left. The superficial femoral and common femoral veins bilaterally appear compressible and patent. IMPRESSION: There is occlusive deep venous thrombosis involving the popliteal veins bilaterally. Dictated by: Dictated on workstation # [id number]
[2016-02-27] MEDS: RT-ADVAIR HFA 115/21 MCG PER PUFF IH SCH (19:07)
[2016-02-27] MEDS ORDERED: ALPRAZolam 0.5 MG (XANAX) TAB ONE (19:58)
[2016-02-27] MEDS ORDERED: ALPRAZolam 0.5 MG (XANAX) TAB PO NR (20:15)
[2016-02-27] MEDS ORDERED: [UNRECOGNIZED DRUG - OTHER] PO SCH ×2 (21:00)
[2016-02-27] MEDS ORDERED: LACTOBACILLUS Acidoph/Bulgar (LACTINEX/FLORANEX) TAB PO SCH (21:00)
[2016-02-27] MEDS: PANTOPRAZOLE 40 MG (PROTONIX) TAB PO SCH (21:41)
[2016-02-27] MEDS: PHENYTOIN 200 MG PO SCH (21:42)
[2016-02-27] MEDS: PHENYTEK PO SCH (21:42)
[2016-02-27] MEDS: ASPIRIN E.C. 325 MG (ECOTRIN) TABLET PO SCH (21:42)
[2016-02-27] MEDS: RT-ALBUTEROL SULF 2.5 MG/3 ML PRE-MIX VIAL INH SCH (22:48)
[2016-02-28] VITALS (11 sets, daily range): BP systolic 109–145; BP diastolic 76–115
[2016-02-28] MEDS: HEParin 1000 UNIT/ML (10ML VIAL) FOR BOLUS IV SCH ×3 (01:22→23:13)
[2016-02-28] MEDS: RT-ALBUTEROL SULF 2.5 MG/3 ML PRE-MIX VIAL INH SCH ×6 (02:57→21:57)
[2016-02-28] MEDS: NS IV 1000 ML 1,000 ML IV SCH ×4 (03:06→23:42)
[2016-02-28] MEDS: HEParin DRIP 25000 UNIT/500ML 500 ML IV SCH ×2 (03:09→18:48)
[2016-02-28] MEDS ORDERED: POTASSIUM CL 10MEQ/50ML IVPB 50 ML IV SCH (06:00)
[2016-02-28] MEDS ORDERED: MAGNESIUM 1 GM/100 ML IVPB 100 ML IV SCH (06:00)
[2016-02-28] MEDS ORDERED: KCL 20 MEQ TAB (K-DUR) PO SCH (06:00)
[2016-02-28 06:03] LABS: BASOPHILS % (AUTO) 0 % (0-10); EOSINOPHILS # (AUTO) 0.1 10^3/uL (0.0-0.3); EOSINOPHILS % (AUTO) 0 % (0-10); LYMPHOCYTES # (AUTO) 2.7 X 10^3 (1.0-4.0); LYMPHOCYTES % (AUTO) 24 % (12-44); MEAN CORPUSCULAR HEMOGLOBIN 33 PG (25-34); MEAN CORPUSCULAR HGB CONC 35 G/DL (32-36); MEAN CORPUSCULAR VOLUME 96 FL (80-99); MEAN PLATELET VOLUME 9.7 FL (7.4-10.4); MONOCYTES # (AUTO) 0.9 X 10^3 (0.0-1.0); MONOCYTES % (AUTO) 8 % (0-12); NEUTROPHILS # (AUTO) 7.8 X 10^3 (1.8-7.8); NEUTROPHILS % (AUTO) 68 % (42-75); PLATELET COUNT 181 10^3/uL (130-400); RED BLOOD COUNT 4.53 10^6/uL (4.35-5.85); RED CELL DISTRIBUTION WIDTH 14.2 % (10.0-14.5); WHITE BLOOD COUNT 11.4 10^3/uL (4.3-11.0)
[2016-02-28] MEDS: RT-ADVAIR HFA 115/21 MCG PER PUFF IH SCH ×2 (06:08→18:41)
[2016-02-28 06:15] LABS: ANION GAP 13 MMOL/L (5-14); BLOOD UREA NITROGEN 12 MG/DL (7-18); BUN/CREATININE RATIO 15; CALCIUM 7.7 MG/DL (8.5-10.1); CARBON DIOXIDE 15 MMOL/L (21-32); CHLORIDE 108 MMOL/L (98-107); CREATININE SERUM 0.79 MG/DL (0.60-1.30); GFR ESTIMATED > 60; GLUCOSE 223 MG/DL (70-105); MAGNESIUM 1.9 MG/DL (1.8-2.4); PHOSPHORUS 5.1 MG/DL (2.3-4.7); POTASSIUM 3.6 MMOL/L (3.6-5.0); SODIUM 136 MMOL/L (135-145)
[2016-02-28] MEDS ORDERED: SODIUM BICARB 8.4% 50 MEQ/50 ML (ABBOTT) SYR IV ONE (06:45)
--- NOTE | 2016-02-28 06:46 | Pulmonary Consultation ---
History of Present Illness History of Present Illness Date of Consultation 02/28/16 06:39 Date of Admission History of Present Illness 55yo with hx of seizures and PE after colon surgery presents to ED secondary to worsening SOB and cough over last several weeks. He failed out patient treatment with Abx. He did improve slightly until the night prior to admission he bacame a lot more SOB. Upon ED admission CT scan showed saddle embolus. He was started on Heparin gtt and transferred to ICU. This morning pt is still feeling SOB but some what improved. I am consulted for ICU management. Allergies and Home Medications Allergies Coded Allergies: No Known Drug Allergies (Verified , 12/23/06) Home Medications Albuterol Sulfate 18 Gm Hfa.aer.ad 1 PUFF IH Q4H PRN PRN SHORTNESS OF BREATH ( Reported) Amoxicillin/Potassium Clav 1 Each Tablet 1 TAB PO BID (Reported) #14 FILLED 02-19-16 AND #6 FILLED 02-24-16 Aspirin 325 Mg Tablet.dr 325 MG PO HS (Reported) Budesonide/Formoterol Fumarate 10.2 Gm Hfa.aer.ad 1 PUFF IH BID (Reported) D-Methorphan Hb/P-Epd HCl/Bpm 118 Ml Syrup #120 5 ML PO Q4H PRN PRN CONGESTION Prescribed by: INDERJIT DELGADO on 02/19/16 1102 Hydrochlorothiazide 25 Mg Tablet 25 MG PO HS (Reported) Lactobacillus Combo No.11 1 Each Cap.sprink 1 CAP PO BID (Reported) Naproxen 500 Mg Tablet 500 MG PO BID PRN PRN PAIN (Reported) Phenytoin Sodium Extended 300 Mg Capsule #30 300 MG PO HS (Reported) TAKES WITH 2 (200 MG) CAPS TO EQUAL 700MG TOTAL DOSE Phenytoin Sodium Extended 200 Mg Capsule 400 MG PO HS (Reported) TAKES 2 (200MG) CAPSULES ALONG WITH A 300MG FOR A TOTAL DAILY DOSE OF 700MG Prednisone 20 Mg Tab 5Days 40 MG PO (Reported) #10 TABS FILLED 02-23-16 TAKES 2 (20MG) TABLETS Past Vkeyqxc-Kjhpbe-Pssszb Hx Patient Social History Alcohol Use: Denies Use Recreational Drug Use: No Smoking Status: Never a Smoker 2nd Hand Smoke Exposure: No Recent Foreign Travel: No Contact w/Someone Who Travel: No Recent Infectious Disease Expo: No Recent Hopitalizations: Yes (, FISTULA REPAIR) Physical Abuse Screen: No Sexual Abuse: No Immunizations Up To Date Tetanus Booster (TDap): More than 5yrs Date of Pneumonia Vaccine: Nov 24, 2008 Date of Influenza Vaccine: Feb 22, 2014 Seasonal Allergies Seasonal Allergies: Yes Surgeries HX Surgeries: Yes (BOWEL RESECT/COLOSTOMY/REVERSAL,VENTRAL HERNIA, BACK,TENDON/ HAND REPAIR ) Surgeries: Abdominal, Bowel Surgery, Orthopedic Respiratory Hx Respiratory Disorders: Yes Respiratory Disorders: Pulmonary Embolism Cardiovascular Hx Cardiac Disorders: Yes Cardiac Disorders: Deep Vein Thrombosis, Hypertension Neurological Hx Neurological Disorders: Yes (NO SEIZURE FOR SEVERAL YEARS BUT TAKES MEDICINE ) Neurological Disorders: Seizure Disorder Reproductive System Hx Reproductive Disorders: No Genitourinary Hx Genitourinary Disorders: Yes Genitourinary Disorders: Kidney Stones Gastrointestinal Hx Gastrointestinal Disorders: Yes (COLON RESECTION/ILEOSTOMY/REVERSAL. CHRONIC ABDOMINAL WOUND) Gastrointestinal Disorders: Diverticulosis Musculoskeletal Hx Musculoskeletal Disorders: Yes (ARTHRITIS IN FEET AND BACK) Musculoskeletal Disorders: Arthritis, Chronic Back Pain Endocrine Hx Endocrine Disorders: Yes (MORBID OBESITY) HEENT HX ENT Disorders: Yes (GLASSES) Cancer Hx Cancer: No Psychosocial Hx Psychiatric Problems: Yes Behavioral Health Disorders: Anxiety Integumentary HX Skin/Integumentary Disorder: Yes (CHRONIC POST-OP ABDOMINAL WOUND) Blood Transfusions Hx Blood Disorders: No Adverse Reaction to a Blood Tr: No Reviewed Nursing Assessment Reviewed/Agree w Nursing PMH: Yes Family Medical History Significant Family History: Heart Disease, Cancer, Hypertension, Psychiatric Problems Family Medial History: Arthritis G8 SISTER Asthma G8 SISTER Colon cancer 19 MOTHER FH: breast cancer 19 MOTHER Heart attack 19 FATHER Hypertension G8 SISTER Psychosocial problem G8 BROTHER (DOWN'S SYNDROME) No Family History of: AIDS Alcoholism Alzheimer's disease Completed stroke Diabetes mellitus Kidney disease Myocardial infarction Parkinson's disease Prostate cancer Respiratory disorder Seizure disorder Thyroid disease Review of Systems Constitutional: : Malaise: Sweats: WeaknessNo: Fever Eyes: No: Conjunctivae inflammation, Eyelid inflammation, Other, Pain, Redness , Vision change ENT: No: Ear discharge, Ear pain, Mouth pain, Mouth swelling, Nose congestion, Nose discharge, Nose pain, Other, Throat pain, Throat swelling Respiratory: : Cough: Dry: SOB with excertion: Shortness of breath Cardiovascular: : Chest Pain: Orthopnea: Palpitations: Paroxysmal Noc. DyspneaNo: Edema Gastrointestinal: No: Abdominal Pain, Constipation, Diarrhea, Hematochezia, Melena, Nausea, Other, Vomiting Genitourinary: No Dysuria, No Frequency, No Incontinence, No Hematuria, No Retention, No Other Neurological: : Weakness Exam Exam Vital Signs Date Time Temp Pulse Resp B/P Pulse Ox O2 Delivery O2 Flow Rate FiO2 02/28/16 06:10 96 High Flow N/C 10.00 02/28/16 04:00 98 16 125/90 94 High Flow NC 8.00 02/28/16 04:00 93 Nasal Cannula 8.00 02/28/16 04:00 98.3 02/28/16 03:00 99 17 127/97 96 High Flow NC 8.00 02/28/16 02:57 93 High Flow N/C 10.00 02/28/16 02:00 97 19 144/115 90 High Flow NC 8.00 02/28/16 01:00 100 02/28/16 01:00 100 19 136/114 95 High Flow NC 8.00 02/28/16 00:00 102 21 115/82 93 High Flow NC 8.00 02/28/16 00:00 93 Nasal Cannula 8.00 02/28/16 00:00 98.7 02/27/16 23:00 105 21 110/96 95 High Flow NC 8.00 02/27/16 22:49 92 Nasal Cannula 10.00 02/27/16 22:15 102 12 121/83 94 High Flow NC 8.00 02/27/16 22:08 High Flow NC 8.00 02/27/16 22:00 106 17 122/91 90 Nasal Cannula 5.00 02/27/16 21:00 112 13 138/88 91 Nasal Cannula 5.00 02/27/16 20:00 112 18 131/89 90 Nasal Cannula 5.00 02/27/16 20:00 91 Nasal Cannula 8.00 02/27/16 19:50 98.5 119 20 163/101 Nasal Cannula 5.00 02/27/16 19:07 92 Nasal Cannula 5.00 02/27/16 19:00 110 02/27/16 19:00 110 9 173/108 89 Nasal Cannula 5.00 02/27/16 14:32 91 Nasal Cannula 5.00 02/27/16 13:54 93 02/27/16 13:54 93 Nasal Cannula 5.00 02/27/16 13:30 92 High Flow N/C 5.00 02/27/16 13:00 98.6 109 20 92 Nasal Cannula 4 02/27/16 09:30 91 Nasal Cannula 4 02/27/16 09:29 97.8 118 24 154/125 91 Room Air 2 I & O 02/28/16 06:59 Intake Total 400 ml Balance 400 ml General Appearance: WD/WN Mild Distress Obese HEENT: PERRL/EOMI Pharynx Normal Neck: Full Range of Motion Supple Respiratory: Chest Non Tender Decreased Breath Sounds Other (TACHYPNEA) Cardiovascular: Regular Rate, Rhythm No Edema Capillary Refill: Less Than 3 Seconds Extremity: Normal Capillary Refill Normal Range of Motion Non Tender No Calf Tenderness No Pedal Edema Neurologic/Psychiatric: Alert Oriented x3 No Motor/Sensory Deficits 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 Norm as Tested Skin: Normal Color Warm/Dry Lymphatic: No Adenopathy Results Lab Laboratory Tests 02/27/16 09:50 02/28/16 05:50 Assessment/Plan Assessment/Plan 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
[2016-02-28] MEDS ORDERED: RT-SODIUM CHL INHALATION 3 ML VIAL ONE (07:14)
--- NOTE | 2016-02-28 07:14 | Progress Note (SOAP) ---
Subjective Subjective/Events-last exam PT REPORTS THAT HE HAS REDNESS OF HIS EYES, IRRITATION OF HIS EYES, HE IS STILL SHORT OF BREATH, BUT IS OTHERWISE FEELING ABOUT THE SAME YESTERDAY WITH LESS SHORTNESS OF BREATH THAN PRIOR TO ADMISSION AND PRIOR TO OXYGEN PLACEMENT. Review of Systems General: No Chills, Fatigue Malaise HEENT: No Head Aches, Eye Pain Pulmonary: Dyspnea Cardiovascular: : OrthopneaNo: Chest Pain Gastrointestinal: No: Abdominal Pain, Nausea Genitourinary: No Dysuria Musculoskeletal: No: leg pain Neurological: : Seizures (HISTORY): WeaknessNo: Confusion Objective Exam Vital Signs Date Time Temp Pulse Resp B/P Pulse Ox O2 Delivery O2 Flow Rate FiO2 02/28/16 06:10 96 High Flow N/C 10.00 02/28/16 06:00 101 16 140/76 93 High Flow NC 8.00 02/28/16 05:00 102 24 109/92 94 High Flow NC 8.00 02/28/16 04:00 98 16 125/90 94 High Flow NC 8.00 02/28/16 04:00 93 Nasal Cannula 8.00 02/28/16 04:00 98.3 02/28/16 03:00 99 17 127/97 96 High Flow NC 8.00 02/28/16 02:57 93 High Flow N/C 10.00 02/28/16 02:00 97 19 144/115 90 High Flow NC 8.00 02/28/16 01:00 100 02/28/16 01:00 100 19 136/114 95 High Flow NC 8.00 02/28/16 00:00 102 21 115/82 93 High Flow NC 8.00 02/28/16 00:00 93 Nasal Cannula 8.00 02/28/16 00:00 98.7 02/27/16 23:00 105 21 110/96 95 High Flow NC 8.00 02/27/16 22:49 92 Nasal Cannula 10.00 02/27/16 22:15 102 12 121/83 94 High Flow NC 8.00 02/27/16 22:08 High Flow NC 8.00 02/27/16 22:00 106 17 122/91 90 Nasal Cannula 5.00 02/27/16 21:00 112 13 138/88 91 Nasal Cannula 5.00 02/27/16 20:00 112 18 131/89 90 Nasal Cannula 5.00 02/27/16 20:00 91 Nasal Cannula 8.00 02/27/16 19:50 98.5 119 20 163/101 Nasal Cannula 5.00 02/27/16 19:07 92 Nasal Cannula 5.00 02/27/16 19:00 110 02/27/16 19:00 110 9 173/108 89 Nasal Cannula 5.00 02/27/16 14:32 91 Nasal Cannula 5.00 02/27/16 13:54 93 02/27/16 13:54 93 Nasal Cannula 5.00 02/27/16 13:30 92 High Flow N/C 5.00 02/27/16 13:00 98.6 109 20 92 Nasal Cannula 4 02/27/16 09:30 91 Nasal Cannula 4 02/27/16 09:29 97.8 118 24 154/125 91 Room Air 2 I & O 02/28/16 07:00 Intake Total 400 ml Balance 400 ml Capillary Refill : Less Than 3 Seconds General Appearance: WD/WN Mild Distress (WITH BREATHING) HEENT: PERRL/EOMI Pharynx Normal Neck: Full Range of Motion Supple Respiratory: Chest Non Tender Decreased Breath SoundsNo Rhonci, No Stridor, No Wheezing Cardiovascular: Tachycardia Gastrointestinal: normal bowel sounds non tender soft no organomegaly no pulsatile mass Extremity: Normal Capillary Refill No Calf Tenderness No Pedal Edema Neurologic/Psychiatric: Alert Oriented x3 No Motor/Sensory Deficits Normal Mood/Affect Skin: Warm/Dry Lymphatic: No Adenopathy Results Lab Laboratory Tests 02/27/16 09:30: Activated Partial Thromboplast Time 23L, INR Comment 0.9, Prothrombin Time 11.9L 02/27/16 09:50: Alanine Aminotransferase (ALT/SGPT) 45, Albumin 3.9, Alkaline Phosphatase 147H, Anion Gap 14, Aspartate Amino Transf (AST/SGOT) 37H, BUN/Creatinine Ratio 20, Band Neutrophils 2, Basophils # (Auto) 0.0, Basophils % (Manual) 0, Basophils (% ) (Auto) 0, Blood Morphology Comment NORMAL, Blood Urea Nitrogen 16, C-Reactive Protein High Sensitivity 1.83H, Calcium Level 9.1, Carbon Dioxide Level 18L, Chloride Level 107, Creatinine 0.81, Eosinophils # (Auto) 0.1, Eosinophils % ( Manual) 0, Eosinophils (%) (Auto) 1, Estimat Glomerular Filtration Rate > 60, Glucose Level 108H, Hematocrit 50, Hemoglobin 17.7, Lactic Acid Level 2.8*H, Lymphocytes # (Auto) 2.4, Lymphocytes % (Manual) 21, Lymphocytes (%) (Auto) 17, Mean Corpuscular Hemoglobin 33, Mean Corpuscular Hemoglobin Concent 35, Mean Corpuscular Volume 94, Mean Platelet Volume 9.6, Monocytes # (Auto) 1.1H, Monocytes % (Manual) 5, Monocytes (%) (Auto) 8, Neutrophils # (Auto) 10.5H, Neutrophils % (Manual) 72, Neutrophils (%) (Auto) 74, Platelet Count 199, Potassium Level 4.0, Red Blood Count 5.38, Red Cell Distribution Width 14.1, Sodium Level 139, Total Bilirubin 0.5, Total Protein 8.0, White Blood Count 14.1H 02/27/16 10:20: Urine Bacteria NEGATIVE, Urine Bilirubin NEGATIVE, Urine Casts NONE, Urine Clarity CLEAR, Urine Color YELLOW, Urine Crystals NONE, Urine Culture Indicated NO, Urine Glucose (UA) NEGATIVE, Urine Ketones NEGATIVE, Urine Leukocyte Esterase 1+H, Urine Mucus SMALLH, Urine Nitrite NEGATIVE, Urine Protein 2+H, Urine RBC NONE, Urine RBC (Auto) NEGATIVE, Urine Specific [place] 1.025H, Urine Squamous Epithelial Cells RARE, Urine Urobilinogen NORMAL, Urine WBC RARE, Urine pH 6 02/27/16 12:00: Lactic Acid Level 1.3 02/27/16 17:05: Activated Partial Thromboplast Time 29 02/28/16 00:30: Activated Partial Thromboplast Time 57H 02/28/16 05:50: Activated Partial Thromboplast Time > 200*H, Anion Gap 13, BUN/Creatinine Ratio 15, Basophils # (Auto) 0.0, Basophils (%) (Auto) 0, Blood Urea Nitrogen 12, Calcium Level 7.7L, Carbon Dioxide Level 15L, Chloride Level 108H, Creatinine 0.79, Eosinophils # (Auto) 0.1, Eosinophils (%) (Auto) 0, Estimat Glomerular Filtration Rate > 60, Glucose Level 223H, Hematocrit 43, Hemoglobin 15.1, Lymphocytes # (Auto) 2.7, Lymphocytes (%) (Auto) 24, Magnesium Level 1.9, Mean Corpuscular Hemoglobin 33, Mean Corpuscular Hemoglobin Concent 35, Mean Corpuscular Volume 96, Mean Platelet Volume 9.7, Monocytes # (Auto) 0.9, Monocytes (%) (Auto) 8, Neutrophils # (Auto) 7.8, Neutrophils (%) (Auto) 68, Phosphorus Level 5.1H, Platelet Count 181, Potassium Level 3.6, Red Blood Count 4.53, Red Cell Distribution Width 14.2, Sodium Level 136, White Blood Count 11.4H Microbiology 02/27/16 Influenza Types A,B Antigen (KAMILAH) - Final, Complete Assessment/Plan Assessment/Plan Assess & Plan/Chief Complaint PULMONARY EMBOLUS BILATERAL LOWER EXTREMITY DVT'S DYSPNEA RECENT BRONCHITIS SEIZURE DISORDER HYPERTENSION PULMONARY EMBOLUS - PT ON HEPARIN DRIP, CONTINUE WITH CURRENT TREATMENT, MONITOR SYMPTOMS, CONTINUE WITH OXYGEN - WILL HUMIDIFY THE OXYGEN. DR. RODAS TO EVAL PT TOMORROW MORNING. THE PATIENT IS ON PHENYTEK FOR SEIZURE DISORDER, HAS BEEN ON THIS MEDICATION FOR YEARS WITH EXCELLENT SEIZURE CONTROL. HE IS NOT WILLING TO STOP THIS MEDICATION FOR HIS ANTICOAGULANT. I HAVE REVIEWED THE MEDICATION PROFILE FOR PHENYTEK AND ALL OF THE AVAILABLE ORAL ANTICOAGULANTS. EACH OF THE ORAL ANTICOAGULANTS HAVE INTERACTIONS WITH PHENYTOIN/PHENYTEK - XARELTO APPEARS TO BE THE BEST OPTION - RECOMMENDATIONS ARE FOR INCREASED DOSE OF XARELTO IF THE PHENYTOIN MUST BE CO-ADMINISTERED. THE REPORTS SHOW THAT PHENYTOIN AND COUMADIN CO-ADMINISTRATION WILL INCREASE ANTICOAGULANT EFFETS, THEN DECREASE THE EFFECTS IF USED FOR MORE THAN 2 WEEKS WITH "ADDITIVE EFFECTS" ON PT/INR. I WILL DISCUSSED WITH DR. RODAS AND PHARMACIST - PRASANNA - HE WILL LOOK UP ON LEXICOMP AND WILL GIVE ME MORE DETAILS TO SPECIFICS ON XARELTO WITH PHENYTEK - HOWEVER DURING OUR CONVERSATION HE WAS IN AGREEMENT WITH THE XARELTO AT 15MG BID X 3 WEEKS AND MOST LIKELY WE WILL EXTEND THIS FOR ANOTHER 3 WEEKS DUE TO THE EXTENT OF HIS BLOOD CLOTS AND THEN AFTER THAT 6 WEEKS GO DOWN TO 20MG DAILY AND MONITOR HIS SYMPTOMS. SEIZURE DISORDER - CONTINUE WITH HOME DOSE OF PHENYTEK BILATERAL LOWER EXTREMITY DVT'S - CONTINUE WITH ANTICOAGULATION - STOP SCD'S ORDERED BY PROTOCOL. DYSPNEA - IMPROVED WITH OXYGEN. HYPERTENSION - WILL START METOPROLOL 25MG DAILY TODAY GI PROPHYLAXIS - STARTED PROTONIX PO BID. AGREE WITH ECHO TO BE DONE TODAY. AGREE WITH TRANSFER TO CARDIAC STEPDOWN TODAY. Diagnosis/Problems: Clinical Quality Measures DVT/VTE Risk/Contraindication: Risk Factor Score Per Nursin RFS Level Per Nursing on Admit: 4+=Very High INGRID DOSHI MD Feb 28, 2016 07:14
[2016-02-28] MEDS ORDERED: FLU TRIvalent (5 YOA+) 2016-17 (AFLURIA) 0.5 ML IM ONE (07:15)
--- NOTE | 2016-02-28 08:59 | Diagnostic Imaging Report ---
INDICATION: Dyspnea. Frontal chest obtained at 5:10 a.m. and compared to 02/27/16. FINDINGS: Heart is mildly enlarged. Mediastinal silhouette is unremarkable. There is no acute pulmonary infiltrate or pleural fluid. Left lung base is not well seen, but may be technical. IMPRESSION: Cardiomegaly. No definite infiltrate. Left lung base not well-seen, but this may be technical. Consider correlation with lateral view when the patient is able. Dictated by: Dictated on workstation # [id number]
[2016-02-28] MEDS: ALPRAZolam 0.5 MG (XANAX) TAB PO PRN ×2 (09:45→22:55)
[2016-02-28] MEDS: PANTOPRAZOLE 40 MG (PROTONIX) TAB PO SCH ×2 (09:45→22:55)
[2016-02-28] MEDS: LACTOBACILLUS Acidoph/Bulgar (LACTINEX/FLORANEX) TAB PO SCH ×4 (09:45→22:55)
[2016-02-28] MEDS: PHENYTOIN 200 MG PO SCH (22:54)
[2016-02-28] MEDS: PHENYTEK PO SCH (22:54)
[2016-02-28] MEDS: DIMETAPP DM PO PRN (22:55)
[2016-02-28] MEDS: ASPIRIN E.C. 325 MG (ECOTRIN) TABLET PO SCH (22:55)
[2016-02-29 00:58] VITALS: BP 115/66
[2016-02-29] MEDS: RT-ALBUTEROL SULF 2.5 MG/3 ML PRE-MIX VIAL INH SCH ×7 (02:22→22:51)
[2016-02-29 04:00] VITALS: BP 117/81
[2016-02-29 06:05] LABS: BASOPHILS % (AUTO) 0 % (0-10); EOSINOPHILS # (AUTO) 0.1 10^3/uL (0.0-0.3); EOSINOPHILS % (AUTO) 1 % (0-10); LYMPHOCYTES # (AUTO) 2.6 X 10^3 (1.0-4.0); LYMPHOCYTES % (AUTO) 26 % (12-44); MEAN CORPUSCULAR HEMOGLOBIN 33 PG (25-34); MEAN CORPUSCULAR HGB CONC 34 G/DL (32-36); MEAN CORPUSCULAR VOLUME 97 FL (80-99); MEAN PLATELET VOLUME 9.9 FL (7.4-10.4); MONOCYTES # (AUTO) 0.8 X 10^3 (0.0-1.0); MONOCYTES % (AUTO) 8 % (0-12); NEUTROPHILS # (AUTO) 6.5 X 10^3 (1.8-7.8); NEUTROPHILS % (AUTO) 65 % (42-75); PLATELET COUNT 175 10^3/uL (130-400); RED BLOOD COUNT 4.43 10^6/uL (4.35-5.85); RED CELL DISTRIBUTION WIDTH 14.4 % (10.0-14.5); WHITE BLOOD COUNT 9.9 10^3/uL (4.3-11.0)
[2016-02-29] MEDS: RT-ADVAIR HFA 115/21 MCG PER PUFF IH SCH ×2 (06:14→19:13)
[2016-02-29 06:20] LABS: ANION GAP 9 MMOL/L (5-14); BLOOD UREA NITROGEN 12 MG/DL (7-18); BUN/CREATININE RATIO 17; CALCIUM 8.1 MG/DL (8.5-10.1); CARBON DIOXIDE 19 MMOL/L (21-32); CHLORIDE 110 MMOL/L (98-107); CREATININE SERUM 0.71 MG/DL (0.60-1.30); GFR ESTIMATED > 60; GLUCOSE 107 MG/DL (70-105); MAGNESIUM 2.2 MG/DL (1.8-2.4); PHOSPHORUS 3.2 MG/DL (2.3-4.7); POTASSIUM 3.7 MMOL/L (3.6-5.0); SODIUM 138 MMOL/L (135-145)
[2016-02-29] MEDS: HEParin 1000 UNIT/ML (10ML VIAL) FOR BOLUS IV SCH (06:40)
[2016-02-29] MEDS: PANTOPRAZOLE 40 MG (PROTONIX) TAB PO SCH ×2 (06:42→20:55)
--- NOTE | 2016-02-29 08:07 | Progress Note (SOAP) ---
Subjective Subjective/Events-last exam PT REPORTS THAT SHE IS FEELING FATIGUED, HAVING NAUSEA THAT IS PERSISTENT, AND HAVING PAIN IN HER RIBS/BACK Review of Systems General: Fatigue HEENT: No Head Aches Pulmonary: Dyspnea Cough Cardiovascular: No: Chest Pain Gastrointestinal: : Nausea Musculoskeletal: : back pain Neurological: : WeaknessNo: Confusion Objective Exam Vital Signs Date Time Temp Pulse Resp B/P Pulse Ox O2 Delivery O2 Flow Rate FiO2 02/29/16 06:14 95 High Flow N/C 6.00 02/29/16 04:00 98.2 91 18 117/81 93 High Flow NC 6.00 02/29/16 02:22 94 High Flow N/C 6.00 02/29/16 01:00 87 02/29/16 00:58 98.7 94 22 115/66 94 High Flow NC 6.00 02/28/16 21:58 93 High Flow N/C 6.00 02/28/16 20:00 98.4 82 17 129/83 91 High Flow NC 5.00 02/28/16 20:00 93 Nasal Cannula 8.00 02/28/16 19:00 98 02/28/16 18:44 High Flow N/C 6.00 02/28/16 18:41 93 High Flow N/C 6.00 02/28/16 15:30 97.7 94 20 114/83 93 High Flow NC 6.00 02/28/16 14:13 96 High Flow N/C 8.00 02/28/16 13:00 95 02/28/16 12:00 93 Nasal Cannula 8.00 02/28/16 11:50 98.6 95 20 131/79 94 High Flow NC 8.00 02/28/16 10:47 94 High Flow N/C 10.00 02/28/16 10:00 99 19 94 High Flow NC 10.00 02/28/16 08:28 98.1 95 High Flow NC 10.00 02/28/16 08:27 95 Nasal Cannula 10.00 I & O 02/29/16 07:00 Intake Total 4480 ml Output Total 2 ml Balance 4478 ml Capillary Refill : Less Than 3 Seconds General Appearance: WD/WN HEENT: Pharynx Normal Neck: Full Range of Motion Supple Respiratory: Chest Non Tender Decreased Breath Sounds (NO BREATH SOUNDS ON LEFT, CLEAR ON RIGHT) Cardiovascular: Regular Rate, Rhythm Gastrointestinal: normal bowel sounds non tender soft Extremity: Pedal Edema (RACE) Neurologic/Psychiatric: Alert Oriented x3 Skin: Warm/Dry Results Lab Laboratory Tests 02/28/16 14:00: Activated Partial Thromboplast Time 37H 02/28/16 21:46: Activated Partial Thromboplast Time 52H 02/29/16 05:08: Activated Partial Thromboplast Time 54H, Anion Gap 9, BUN/Creatinine Ratio 17, Basophils # (Auto) 0.0, Basophils (%) (Auto) 0, Blood Urea Nitrogen 12, Calcium Level 8.1L, Carbon Dioxide Level 19L, Chloride Level 110H, Creatinine 0.71, Eosinophils # (Auto) 0.1, Eosinophils (%) (Auto) 1, Estimat Glomerular Filtration Rate > 60, Glucose Level 107H, Hematocrit 43, Hemoglobin 14.5, Lymphocytes # (Auto) 2.6, Lymphocytes (%) (Auto) 26, Magnesium Level 2.2, Mean Corpuscular Hemoglobin 33, Mean Corpuscular Hemoglobin Concent 34, Mean Corpuscular Volume 97, Mean Platelet Volume 9.9, Monocytes # (Auto) 0.8, Monocytes (%) (Auto) 8, Neutrophils # (Auto) 6.5, Neutrophils (%) (Auto) 65, Phosphorus Level 3.2, Platelet Count 175, Potassium Level 3.7, Red Blood Count 4.43, Red Cell Distribution Width 14.4, Sodium Level 138, White Blood Count 9.9 Microbiology 02/27/16 Blood Culture - Preliminary, Resulted No growth 02/27/16 Influenza Types A,B Antigen (KAMILAH) - Final, Complete Assessment/Plan Assessment/Plan Assess & Plan/Chief Complaint PULMONARY EMBOLUS BILATERAL LOWER EXTREMITY DVT'S DYSPNEA RECENT BRONCHITIS SEIZURE DISORDER HYPERTENSION PULMONARY EMBOLUS - PT ON HEPARIN DRIP, CONTINUE WITH CURRENT TREATMENT, MONITOR SYMPTOMS, CONTINUE WITH OXYGEN - WILL HUMIDIFY THE OXYGEN. DR. RODAS TO EVAL PT TOMORROW MORNING. THE PATIENT IS ON PHENYTEK FOR SEIZURE DISORDER, HAS BEEN ON THIS MEDICATION FOR YEARS WITH EXCELLENT SEIZURE CONTROL. HE IS NOT WILLING TO STOP THIS MEDICATION FOR HIS ANTICOAGULANT. I HAVE REVIEWED THE MEDICATION PROFILE FOR PHENYTEK AND ALL OF THE AVAILABLE ORAL ANTICOAGULANTS. EACH OF THE ORAL ANTICOAGULANTS HAVE INTERACTIONS WITH PHENYTOIN/PHENYTEK - XARELTO APPEARS TO BE THE BEST OPTION - RECOMMENDATIONS ARE FOR INCREASED DOSE OF XARELTO IF THE PHENYTOIN MUST BE CO-ADMINISTERED. THE REPORTS SHOW THAT PHENYTOIN AND COUMADIN CO-ADMINISTRATION WILL INCREASE ANTICOAGULANT EFFETS, THEN DECREASE THE EFFECTS IF USED FOR MORE THAN 2 WEEKS WITH "ADDITIVE EFFECTS" ON PT/INR. I WILL DISCUSSED WITH DR. RODAS AND PHARMACIST - PRASANNA - HE WILL LOOK UP ON LEXICOMP AND WILL GIVE ME MORE DETAILS TO SPECIFICS ON XARELTO WITH PHENYTEK - HOWEVER DURING OUR CONVERSATION HE WAS IN AGREEMENT WITH THE XARELTO AT 15MG BID X 3 WEEKS AND MOST LIKELY WE WILL EXTEND THIS FOR ANOTHER 3 WEEKS DUE TO THE EXTENT OF HIS BLOOD CLOTS AND THEN AFTER THAT 6 WEEKS GO DOWN TO 20MG DAILY AND MONITOR HIS SYMPTOMS. SEIZURE DISORDER - CONTINUE WITH HOME DOSE OF PHENYTEK BILATERAL LOWER EXTREMITY DVT'S - CONTINUE WITH ANTICOAGULATION - STOP SCD'S ORDERED BY PROTOCOL. DYSPNEA - IMPROVED WITH OXYGEN. HYPERTENSION - WILL START METOPROLOL 25MG DAILY TODAY GI PROPHYLAXIS - STARTED PROTONIX PO BID. AGREE WITH ECHO TO BE DONE TODAY. AGREE WITH TRANSFER TO CARDIAC STEPDOWN TODAY. Diagnosis/Problems: Clinical Quality Measures DVT/VTE Risk/Contraindication: Risk Factor Score Per Nursin RFS Level Per Nursing on Admit: 4+=Very High INGRID DOSHI MD Feb 29, 2016 08:07
[2016-02-29 08:11] VITALS: BP 160/81
[2016-02-29] MEDS: HEParin DRIP 25000 UNIT/500ML 500 ML IV SCH ×2 (08:39→18:43)
[2016-02-29] MEDS: LACTOBACILLUS Acidoph/Bulgar (LACTINEX/FLORANEX) TAB PO SCH ×4 (08:45→20:55)
--- NOTE | 2016-02-29 08:54 | Pulmonary Progress Note ---
Subjective Subjective/Events-last exam NO complications noted. Exam Exam Vital Signs Date Time Temp Pulse Resp B/P Pulse Ox O2 Delivery O2 Flow Rate FiO2 02/29/16 08:11 97.5 91 18 160/81 95 6.00 6.00 02/29/16 07:00 89 02/29/16 06:14 95 High Flow N/C 6.00 02/29/16 04:00 98.2 91 18 117/81 93 High Flow NC 6.00 02/29/16 02:22 94 High Flow N/C 6.00 02/29/16 01:00 87 02/29/16 00:58 98.7 94 22 115/66 94 High Flow NC 6.00 02/28/16 21:58 93 High Flow N/C 6.00 02/28/16 20:00 98.4 82 17 129/83 91 High Flow NC 5.00 02/28/16 20:00 93 Nasal Cannula 8.00 02/28/16 19:00 98 02/28/16 18:44 High Flow N/C 6.00 02/28/16 18:41 93 High Flow N/C 6.00 02/28/16 15:30 97.7 94 20 114/83 93 High Flow NC 6.00 02/28/16 14:13 96 High Flow N/C 8.00 02/28/16 13:00 95 02/28/16 12:00 93 Nasal Cannula 8.00 02/28/16 11:50 98.6 95 20 131/79 94 High Flow NC 8.00 02/28/16 10:47 94 High Flow N/C 10.00 02/28/16 10:00 99 19 94 High Flow NC 10.00 I & O 02/29/16 07:00 Intake Total 4480 ml Output Total 2 ml Balance 4478 ml General Appearance: WD/WN Mild Distress (WITH BREATHING) HEENT: PERRL/EOMI Pharynx Normal Neck: Full Range of Motion Supple Respiratory: Chest Non Tender Decreased Breath SoundsNo Rhonci, No Stridor, No Wheezing Cardiovascular: Tachycardia Capillary Refill: Less Than 3 Seconds Gastrointestinal: normal bowel sounds non tender soft no organomegaly no pulsatile mass Extremity: Normal Capillary Refill No Calf Tenderness No Pedal Edema Neurologic/Psychiatric: Alert Oriented x3 No Motor/Sensory Deficits Normal Mood/Affect Skin: Warm/Dry Lymphatic: No Adenopathy Results Lab Laboratory Tests 02/27/16 09:50 02/28/16 05:50 02/29/16 05:08 Assessment/Plan Assessment/Plan 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
--- NOTE | 2016-02-29 10:05 | Diagnostic Imaging Report ---
INDICATION: Dyspnea. TECHNIQUE: Single view chest at 4:34 a.m. CORRELATION STUDY: 02/28/2016. FINDINGS: Heart size is enlarged. Mediastinum is prominent and generally stable. Vasculature is within normal limits. Left lung base is largely obscured by the cardiac enlargement. However, lung palafox overall appear to be generally clear. No significant pneumothorax. IMPRESSION: 1. Overall, generally stable chest with unchanged cardiac enlargement. No evidence for overt failure. Dictated by: Dictated on workstation # [id number]
[2016-02-29] MEDS: NS IV 1000 ML 1,000 ML IV SCH (10:19)
--- NOTE | 2016-02-29 10:41 | ECHOCARDIOGRAPHY REPORT ---
PROCEDURE PHYSICIAN: PATRICIA GREENE DATE OF PROCEDURE: 02/28/2016 TWO DIMENSIONAL ECHOCARDIOGRAM REPORT PRIMARY PHYSICIAN: OTHER PHYSICIAN: REFERRING PHYSICIAN: Dr. Salamanca and Dr. Beasley ORDERING PHYSICIAN: INDICATION FOR THE PROCEDURE: MEASUREMENTS DERIVED VALUES LV DIAMETER (LAX) NORMALS NORMALS Diastolic 3.8 (3.6-5.2) Eject. Fract. 60% (60%+/-6%) Systolic (2.3-3.9) Diastolic Vol. % Shortening (0.22-0.42) Systolic Vol. Aortic Root IVS THICKNESS Diastolic 1. (0.6-1.1) LVPW THICKNESS Diastolic 1. (0.6-1.1) LA DIAMETER Systolic 2.5 (2.1-3.7) FINDINGS: 1. Technically difficult study due to body habitus. 2. The left ventricle appeared to be normal size, endocardium was not well visualized in all segments. Overall systolic function appeared to be preserved with estimated ejection fraction 60%. 3. The left atrium is normal in size. No clot or thrombus were seen within the left atrium. 4. The right atrium and right ventricle are prominent. No clot or thrombus were seen. 5. Mitral valve is normal in morphology with mild mitral regurgitation noted by color Doppler flow. No mitral valve prolapse. No mitral valve stenosis. 6. Aortic valve leaflets were not well visualized. There is no significant aortic stenosis or regurgitation was seen. 7. Tricuspid valve is normal in morphology with mild tricuspid regurgitation noted by color Doppler flow. Doppler across tricuspid valve estimated pulmonary artery pressure of 33+ right atrial pressure. 8. Pulmonic valve is functioning normally. 9. No pericardial effusion. CONCLUSION: 1. Technically difficult study due to the patient body habitus. 2. Normal left ventricular size, endocardium was not well visualized in all segments. Overall systolic function appeared to be preserved. Estimated ejection fraction 60%. 3. Prominent right heart chambers with pulmonary hypertension with estimated pulmonary artery pressure of 40 mmHg. 4. Mild mitral and tricuspid regurgitation. Job ID: [id number] Dictated Date: 02/28/2016 20:01:54 Enhanced Environmental Operator Date: 02/29/2016 10:36:22 / jeffrey
[2016-02-29 11:57] VITALS: BP 125/81
[2016-02-29 15:48] VITALS: BP 123/82
[2016-02-29 20:00] VITALS: BP 112/70
[2016-02-29] MEDS: ASPIRIN E.C. 325 MG (ECOTRIN) TABLET PO SCH (20:55)
[2016-02-29] MEDS: ALPRAZolam 0.5 MG (XANAX) TAB PO PRN (20:55)
[2016-02-29] MEDS: PHENYTEK PO SCH (20:57)
[2016-02-29] MEDS: PHENYTOIN 200 MG PO SCH (20:58)
[2016-03-01 00:25] VITALS: BP 122/76
[2016-03-01] MEDS: NS IV 1000 ML 1,000 ML IV SCH ×3 (02:04→23:30)
[2016-03-01] MEDS: RT-ALBUTEROL SULF 2.5 MG/3 ML PRE-MIX VIAL INH SCH ×5 (02:56→19:23)
[2016-03-01] MEDS: HEParin DRIP 25000 UNIT/500ML 500 ML IV SCH ×3 (04:11→23:29)
[2016-03-01 04:13] VITALS: BP 134/82
[2016-03-01] MEDS: PANTOPRAZOLE 40 MG (PROTONIX) TAB PO SCH ×2 (05:53→20:01)
[2016-03-01] MEDS: RT-ADVAIR HFA 115/21 MCG PER PUFF IH SCH ×2 (06:22→19:23)
[2016-03-01 06:39] LABS: BASOPHILS % (AUTO) 0 % (0-10); EOSINOPHILS # (AUTO) 0.1 10^3/uL (0.0-0.3); EOSINOPHILS % (AUTO) 1 % (0-10); LYMPHOCYTES # (AUTO) 2.4 X 10^3 (1.0-4.0); LYMPHOCYTES % (AUTO) 27 % (12-44); MEAN CORPUSCULAR HEMOGLOBIN 34 PG (25-34); MEAN CORPUSCULAR HGB CONC 34 G/DL (32-36); MEAN CORPUSCULAR VOLUME 98 FL (80-99); MEAN PLATELET VOLUME 9.9 FL (7.4-10.4); MONOCYTES # (AUTO) 0.7 X 10^3 (0.0-1.0); MONOCYTES % (AUTO) 7 % (0-12); NEUTROPHILS # (AUTO) 5.9 X 10^3 (1.8-7.8); NEUTROPHILS % (AUTO) 65 % (42-75); PLATELET COUNT 167 10^3/uL (130-400); RED BLOOD COUNT 4.19 10^6/uL (4.35-5.85); RED CELL DISTRIBUTION WIDTH 14.5 % (10.0-14.5); WHITE BLOOD COUNT 9.1 10^3/uL (4.3-11.0)
[2016-03-01 06:56] LABS: ANION GAP 8 MMOL/L (5-14); BLOOD UREA NITROGEN 9 MG/DL (7-18); BUN/CREATININE RATIO 13; CALCIUM 8.4 MG/DL (8.5-10.1); CARBON DIOXIDE 18 MMOL/L (21-32); CHLORIDE 111 MMOL/L (98-107); CREATININE SERUM 0.71 MG/DL (0.60-1.30); GFR ESTIMATED > 60; GLUCOSE 113 MG/DL (70-105); MAGNESIUM 2.2 MG/DL (1.8-2.4); PHOSPHORUS 3.3 MG/DL (2.3-4.7); POTASSIUM 3.6 MMOL/L (3.6-5.0); SODIUM 137 MMOL/L (135-145)
--- NOTE | 2016-03-01 07:39 | Diagnostic Imaging Report ---
INDICATION: Dyspnea. COMPARISON: 02/29/2016 FINDINGS: Single frontal radiographic view of the chest was obtained and again demonstrates mild cardiomegaly. Pulmonary vasculature is within normal limits. Lungs are clear and show no focal consolidations, pleural effusions or pneumothoraces. Bony structures show no gross acute abnormalities. IMPRESSION: 1. Mild cardiomegaly, but no evidence of failure or focal infiltrate. Dictated by: Dictated on workstation # [id number]
[2016-03-01 08:00] VITALS: BP 117/82
[2016-03-01] MEDS: LACTOBACILLUS Acidoph/Bulgar (LACTINEX/FLORANEX) TAB PO SCH ×4 (10:22→20:01)
--- NOTE | 2016-03-01 13:06 | Pulmonary Progress Note ---
Subjective Subjective/Events-last exam pt denies c/o; is wearing oxygen at 2L for shortness of breath w/exertion Exam Exam Vital Signs Date Time Temp Pulse Resp B/P Pulse Ox O2 Delivery O2 Flow Rate FiO2 03/01/16 10:54 95 03/01/16 10:51 95 High Flow N/C 4.00 03/01/16 08:00 96 Nasal Cannula 2.00 03/01/16 08:00 97.8 85 20 117/82 95 High Flow NC 2.00 03/01/16 07:00 84 03/01/16 06:28 96 High Flow N/C 2.00 03/01/16 06:22 97 High Flow N/C 4.00 03/01/16 04:13 98.5 81 20 134/82 96 High Flow NC 4.00 03/01/16 02:56 90 High Flow N/C 4.00 03/01/16 01:00 84 03/01/16 00:25 98.9 98 20 122/76 88 High Flow NC 3.00 03/01/16 00:25 95 High Flow NC 4.00 02/29/16 22:51 88 High Flow N/C 2.50 02/29/16 20:00 98.7 89 20 112/70 95 High Flow NC 2.00 02/29/16 20:00 96 Nasal Cannula 2.00 02/29/16 19:19 96 High Flow N/C 2.50 02/29/16 19:13 89 High Flow N/C 2.00 02/29/16 19:00 87 02/29/16 15:48 97.3 86 20 123/82 95 High Flow NC 2.00 02/29/16 14:18 95 2.50 02/29/16 13:20 93 I & O 03/01/16 07:00 Intake Total 7444 ml Balance 7444 ml General Appearance: No Apparent Distress WD/WN Obese HEENT: PERRL/EOMI Normal ENT Inspection Pharynx Normal Neck: Full Range of Motion Normal Inspection Non Tender Supple Respiratory: Chest Non Tender No Accessory Muscle Use No Respiratory Distress Decreased Breath SoundsNo Rhonci, No Stridor, No Wheezing Cardiovascular: Regular Rate, Rhythm Normal Peripheral Pulses Capillary Refill: Less Than 3 Seconds Gastrointestinal: normal bowel sounds non tender soft no organomegaly no pulsatile mass Extremity: Normal Capillary Refill Normal Inspection Normal Range of Motion Non Tender No Calf Tenderness Pedal Edema Neurologic/Psychiatric: Alert Oriented x3 No Motor/Sensory Deficits Normal Mood/Affect teacher dramatics II-XII Norm as Tested Skin: Normal Color Warm/Dry Lymphatic: No Adenopathy Results Lab Laboratory Tests 02/29/16 05:08 03/01/16 06:23 Assessment/Plan Assessment/Plan 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
[2016-03-01 16:00] VITALS: BP 148/90
[2016-03-01 20:00] VITALS: BP 131/80
[2016-03-01] MEDS: ASPIRIN E.C. 325 MG (ECOTRIN) TABLET PO SCH (20:01)
[2016-03-01] MEDS: PHENYTEK PO SCH (20:02)
[2016-03-01] MEDS: PHENYTOIN 200 MG PO SCH (20:04)
[2016-03-01] MEDS: DIMETAPP DM PO PRN (20:09)
[2016-03-02] VITALS: BP 155/81
[2016-03-02 04:00] VITALS: BP 141/75
[2016-03-02] MEDS: PANTOPRAZOLE 40 MG (PROTONIX) TAB PO SCH ×2 (05:48→21:04)
[2016-03-02 05:50] LABS: BASOPHILS % (AUTO) 0 % (0-10); EOSINOPHILS # (AUTO) 0.1 10^3/uL (0.0-0.3); EOSINOPHILS % (AUTO) 1 % (0-10); LYMPHOCYTES # (AUTO) 1.3 X 10^3 (1.0-4.0); LYMPHOCYTES % (AUTO) 14 % (12-44); MEAN CORPUSCULAR HEMOGLOBIN 33 PG (25-34); MEAN CORPUSCULAR HGB CONC 34 G/DL (32-36); MEAN CORPUSCULAR VOLUME 98 FL (80-99); MEAN PLATELET VOLUME 9.6 FL (7.4-10.4); MONOCYTES # (AUTO) 0.4 X 10^3 (0.0-1.0); MONOCYTES % (AUTO) 5 % (0-12); NEUTROPHILS # (AUTO) 7.5 X 10^3 (1.8-7.8); NEUTROPHILS % (AUTO) 80 % (42-75); PLATELET COUNT 156 10^3/uL (130-400); RED BLOOD COUNT 4.31 10^6/uL (4.35-5.85); RED CELL DISTRIBUTION WIDTH 14.5 % (10.0-14.5); WHITE BLOOD COUNT 9.4 10^3/uL (4.3-11.0)
[2016-03-02 06:06] LABS: ANION GAP 9 MMOL/L (5-14); BLOOD UREA NITROGEN 8 MG/DL (7-18); BUN/CREATININE RATIO 10; CALCIUM 8.5 MG/DL (8.5-10.1); CARBON DIOXIDE 20 MMOL/L (21-32); CHLORIDE 111 MMOL/L (98-107); GFR ESTIMATED > 60; GLUCOSE 107 MG/DL (70-105); MAGNESIUM 2.1 MG/DL (1.8-2.4); PHOSPHORUS 3.2 MG/DL (2.3-4.7); POTASSIUM 3.9 MMOL/L (3.6-5.0); SODIUM 140 MMOL/L (135-145)
[2016-03-02] MEDS: HEParin 1000 UNIT/ML (10ML VIAL) FOR BOLUS IV SCH (06:27)
[2016-03-02] MEDS: RT-ALBUTEROL SULF 2.5 MG/3 ML PRE-MIX VIAL INH SCH ×3 (07:42→20:27)
[2016-03-02] MEDS: RT-ADVAIR HFA 115/21 MCG PER PUFF IH SCH ×2 (07:42→20:27)
[2016-03-02 07:58] VITALS: BP 139/70
[2016-03-02] MEDS: LACTOBACILLUS Acidoph/Bulgar (LACTINEX/FLORANEX) TAB PO SCH ×4 (08:24→21:04)
[2016-03-02] MEDS: cefTRIAXone INJECTION 1,000 MG in NORMAL SALINE (BAXTER MINI) 50 ML IV SCH (08:24)
[2016-03-02] MEDS: NS IV 1000 ML 1,000 ML IV SCH ×2 (08:34→17:04)
[2016-03-02] MEDS: HEParin DRIP 25000 UNIT/500ML 500 ML IV SCH ×2 (08:47→17:07)
--- NOTE | 2016-03-02 10:14 | Progress Note (SOAP) ---
Subjective Subjective/Events-last exam NOTE FOR 03/02/16 PT REPORTS THAT HE IS FEELING BETTER TODAY - HE IS OFF OF HIS OXYGEN - HE WAS WITHOUT OXYGEN YESTERDAY AND HIS SATURATION WAS 97% AND WAS THEREFORE LEFT OFF OF HIS OXYGEN. HE REPORTS A FEVER LAST NIGHT/EARLY THIS MORNING. HE DENIES CHEST PAIN, LEG PAIN, HIS SHORTNESS OF BREATH HAS IMPROVED. Review of Systems General: Fatigue HEENT: No Head Aches, No Visual Changes, No Dysphasia Pulmonary: No Dyspnea, No Cough Cardiovascular: No: Chest Pain, Edema Gastrointestinal: No: Abdominal Pain, Nausea Genitourinary: No Dysuria, No Frequency Musculoskeletal: No: arm pain, back pain, leg pain Neurological: No: Confusion, Weakness Objective Exam Vital Signs Date Time Temp Pulse Resp B/P Pulse Ox O2 Delivery O2 Flow Rate FiO2 03/02/16 07:58 100.3 92 18 139/70 95 Room Air 03/02/16 07:47 Room Air 03/02/16 07:42 92 Room Air 03/02/16 07:13 99.3 03/02/16 06:34 99.6 03/02/16 06:00 101.0 03/02/16 04:00 100.2 99 22 141/75 95 Room Air 0.00 03/02/16 01:00 95 03/02/16 00:00 98.5 101 22 155/81 95 Room Air 0.00 03/01/16 20:00 98.8 95 22 131/80 98 High Flow NC 2.00 03/01/16 19:50 Room Air 03/01/16 19:29 Room Air 03/01/16 19:23 95 Room Air 03/01/16 19:00 92 03/01/16 16:00 99.5 89 20 148/90 97 High Flow NC 2.00 03/01/16 14:08 92 Room Air 03/01/16 13:50 Nasal Cannula 2.00 03/01/16 10:54 95 03/01/16 10:51 95 High Flow N/C 4.00 I & O 03/02/16 07:00 Intake Total 4404 ml Balance 4404 ml Capillary Refill : Less Than 3 Seconds General Appearance: No Apparent Distress WD/WN HEENT: PERRL/EOMI TMs Normal Normal ENT Inspection Pharynx Normal Neck: Full Range of Motion Supple Respiratory: Chest Non Tender Lungs Clear Normal Breath Sounds No Accessory Muscle Use Cardiovascular: Regular Rate, Rhythm Gastrointestinal: normal bowel sounds non tender soft no organomegaly no pulsatile mass Extremity: Normal Capillary Refill Non Tender No Calf Tenderness No Pedal Edema Neurologic/Psychiatric: Alert Oriented x3 No Motor/Sensory Deficits Normal Mood/Affect Skin: Warm/Dry Lymphatic: No Adenopathy Results Lab Laboratory Tests 03/02/16 05:40: Activated Partial Thromboplast Time 62H, Anion Gap 9, BUN/Creatinine Ratio 10, Basophils # (Auto) 0.0, Basophils (%) (Auto) 0, Blood Urea Nitrogen 8, Calcium Level 8.5, Carbon Dioxide Level 20L, Chloride Level 111H, Creatinine 0.80, Eosinophils # (Auto) 0.1, Eosinophils (%) (Auto) 1, Estimat Glomerular Filtration Rate > 60, Glucose Level 107H, Hematocrit 42, Hemoglobin 14.2, Lymphocytes # (Auto) 1.3, Lymphocytes (%) (Auto) 14, Magnesium Level 2.1, Mean Corpuscular Hemoglobin 33, Mean Corpuscular Hemoglobin Concent 34, Mean Corpuscular Volume 98, Mean Platelet Volume 9.6, Monocytes # (Auto) 0.4, Monocytes (%) (Auto) 5, Neutrophils # (Auto) 7.5, Neutrophils (%) (Auto) 80H, Phosphorus Level 3.2, Platelet Count 156, Potassium Level 3.9, Red Blood Count 4.31L, Red Cell Distribution Width 14.5, Sodium Level 140, White Blood Count 9.4 Microbiology 02/27/16 Blood Culture - Preliminary, Resulted No growth 02/27/16 Gram Stain - Final, Complete 02/27/16 Sputum Culture - Final, Complete Usual/normal chris isolated. Assessment/Plan Assessment/Plan Assess & Plan/Chief Complaint PULMONARY EMBOLUS BILATERAL LOWER EXTREMITY DVT'S DYSPNEA RECENT BRONCHITIS SEIZURE DISORDER HYPERTENSION PULMONARY EMBOLUS - PT ON HEPARIN DRIP, CONTINUE WITH CURRENT TREATMENT, MONITOR SYMPTOMS, - CONTINUE WITH IV HEPARIN UNTIL FRIDAY - WE WILL THEN START HIM ON XARELTO. - SEE DOCUMENTATION BELOW FOR RATIONALE: - THE PATIENT IS ON PHENYTEK FOR SEIZURE DISORDER, HAS BEEN ON THIS MEDICATION FOR YEARS WITH EXCELLENT SEIZURE CONTROL. HE IS NOT WILLING TO STOP THIS MEDICATION HE HAS HAD GOOD CONTROL OF HIS SYMPTOMS AND OVER THE YEARS HAD BEEN ON OTHER MEDICATIONS WITH LESS THAN OPTIMAL CONTROL OF HIS SEIZURES. AZAM IS ALSO SOMEWHAT IMPULSIVE FROM A FOOD INTAKE STANDPOINT AND TO CONTROL WARFARIN WOULD BE VERY DIFFICULT INDEED. I HAVE REVIEWED THE MEDICATION PROFILE FOR PHENYTEK AND ALL OF THE AVAILABLE ORAL ANTICOAGULANTS. EACH OF THE ORAL ANTICOAGULANTS HAVE INTERACTIONS WITH PHENYTOIN/PHENYTEK - XARELTO APPEARS TO BE THE BEST OPTION - RECOMMENDATIONS ARE FOR INCREASED DOSE OF XARELTO IF THE PHENYTOIN MUST BE CO-ADMINISTERED. THE REPORTS SHOW THAT PHENYTOIN AND COUMADIN CO-ADMINISTRATION WILL INCREASE ANTICOAGULANT EFFETS, THEN DECREASE THE EFFECTS IF USED FOR MORE THAN 2 WEEKS WITH "ADDITIVE EFFECTS" ON PT/INR WELL AN EFFECT ON HIS PHENYTOIN WITH INCREASED RISK OF SEIZURES. I HAVE DISCUSSED WITH DR. RODAS AND PHARMACIST - PRASANNA - HE STATES THAT THE INFORMATION FROM [employer] IS ESSENTIALLY DOCUMENTED ABOVE. HE STATES THAT THE INFORMATION IS IN AGREEMENT WITH THE XARELTO AT 15MG BID X 3 WEEKS AND EXTEND THIS FOR ANOTHER 3 WEEKS DUE TO THE EXTENT OF HIS BLOOD CLOTS AND THEN AFTER THAT 6 WEEKS GO DOWN TO 20MG DAILY AND MONITOR HIS SYMPTOMS. SEIZURE DISORDER - CONTINUE WITH HOME DOSE OF PHENYTEK BILATERAL LOWER EXTREMITY DVT'S - CONTINUE WITH ANTICOAGULATION - STOP SCD'S ORDERED BY PROTOCOL. DYSPNEA - IMPROVED WITH OXYGEN. HYPERTENSION - WILL START METOPROLOL 25MG DAILY TODAY GI PROPHYLAXIS - STARTED PROTONIX PO BID. ECHO NEGATIVE FEVER - CONTINUE WITH ROCEPHIN STARTED THIS MORNING - MONITOR SYMPTOMS, REPEAT CHEST XRAY TOMORROW MORNING. Diagnosis/Problems: Clinical Quality Measures DVT/VTE Risk/Contraindication: Risk Factor Score Per Nursin RFS Level Per Nursing on Admit: 4+=Very High INGRID DOSHI MD Mar 02, 2016 10:14
--- NOTE | 2016-03-02 10:14 | Progress Note (SOAP) ---
Subjective Subjective/Events-last exam PT IS A 55 Y/O MALE WHO IS KNOWN TO ME FROM CLINIC. THIS IS A LATE ENTRY NOTE FROM 03/01/16 THE PATIENT REPORTS THAT HE IS FEELING BETTER, LESS SHORT OF BREATH. Review of Systems General: Fatigue HEENT: No Head Aches Pulmonary: Dyspnea Cough Cardiovascular: No: Chest Pain Gastrointestinal: No: Nausea Neurological: No: Weakness Objective Exam Vital Signs Date Time Temp Pulse Resp B/P Pulse Ox O2 Delivery O2 Flow Rate FiO2 03/02/16 07:58 100.3 92 18 139/70 95 Room Air 03/02/16 07:47 Room Air 03/02/16 07:42 92 Room Air 03/02/16 07:13 99.3 03/02/16 06:34 99.6 03/02/16 06:00 101.0 03/02/16 04:00 100.2 99 22 141/75 95 Room Air 0.00 03/02/16 01:00 95 03/02/16 00:00 98.5 101 22 155/81 95 Room Air 0.00 03/01/16 20:00 98.8 95 22 131/80 98 High Flow NC 2.00 03/01/16 19:50 Room Air 03/01/16 19:29 Room Air 03/01/16 19:23 95 Room Air 03/01/16 19:00 92 03/01/16 16:00 99.5 89 20 148/90 97 High Flow NC 2.00 03/01/16 14:08 92 Room Air 03/01/16 13:50 Nasal Cannula 2.00 03/01/16 10:54 95 03/01/16 10:51 95 High Flow N/C 4.00 I & O 03/02/16 07:00 Intake Total 4404 ml Balance 4404 ml Capillary Refill : Less Than 3 Seconds General Appearance: WD/WN Obese HEENT: PERRL/EOMI Neck: Full Range of Motion Supple Respiratory: Chest Non Tender Decreased Breath Sounds (IN BASES) Cardiovascular: Regular Rate, Rhythm Gastrointestinal: normal bowel sounds soft Extremity: Normal Capillary Refill Neurologic/Psychiatric: Alert Oriented x3 Normal Mood/Affect Skin: Warm/Dry Lymphatic: No Adenopathy Results Lab Laboratory Tests 03/02/16 05:40: Activated Partial Thromboplast Time 62H, Anion Gap 9, BUN/Creatinine Ratio 10, Basophils # (Auto) 0.0, Basophils (%) (Auto) 0, Blood Urea Nitrogen 8, Calcium Level 8.5, Carbon Dioxide Level 20L, Chloride Level 111H, Creatinine 0.80, Eosinophils # (Auto) 0.1, Eosinophils (%) (Auto) 1, Estimat Glomerular Filtration Rate > 60, Glucose Level 107H, Hematocrit 42, Hemoglobin 14.2, Lymphocytes # (Auto) 1.3, Lymphocytes (%) (Auto) 14, Magnesium Level 2.1, Mean Corpuscular Hemoglobin 33, Mean Corpuscular Hemoglobin Concent 34, Mean Corpuscular Volume 98, Mean Platelet Volume 9.6, Monocytes # (Auto) 0.4, Monocytes (%) (Auto) 5, Neutrophils # (Auto) 7.5, Neutrophils (%) (Auto) 80H, Phosphorus Level 3.2, Platelet Count 156, Potassium Level 3.9, Red Blood Count 4.31L, Red Cell Distribution Width 14.5, Sodium Level 140, White Blood Count 9.4 Microbiology 02/27/16 Blood Culture - Preliminary, Resulted No growth 02/27/16 Gram Stain - Final, Complete 02/27/16 Sputum Culture - Final, Complete Usual/normal chris isolated. Assessment/Plan Assessment/Plan Assess & Plan/Chief Complaint PULMONARY EMBOLUS BILATERAL LOWER EXTREMITY DVT'S DYSPNEA RECENT BRONCHITIS SEIZURE DISORDER HYPERTENSION PULMONARY EMBOLUS - PT ON HEPARIN DRIP, CONTINUE WITH CURRENT TREATMENT, MONITOR SYMPTOMS, CONTINUE WITH OXYGEN - WILL HUMIDIFY THE OXYGEN. DR. RODAS TO EVAL PT TOMORROW MORNING. THE PATIENT IS ON PHENYTEK FOR SEIZURE DISORDER, HAS BEEN ON THIS MEDICATION FOR YEARS WITH EXCELLENT SEIZURE CONTROL. HE IS NOT WILLING TO STOP THIS MEDICATION FOR HIS ANTICOAGULANT. I HAVE REVIEWED THE MEDICATION PROFILE FOR PHENYTEK AND ALL OF THE AVAILABLE ORAL ANTICOAGULANTS. EACH OF THE ORAL ANTICOAGULANTS HAVE INTERACTIONS WITH PHENYTOIN/PHENYTEK - XARELTO APPEARS TO BE THE BEST OPTION - RECOMMENDATIONS ARE FOR INCREASED DOSE OF XARELTO IF THE PHENYTOIN MUST BE CO-ADMINISTERED. THE REPORTS SHOW THAT PHENYTOIN AND COUMADIN CO-ADMINISTRATION WILL INCREASE ANTICOAGULANT EFFETS, THEN DECREASE THE EFFECTS IF USED FOR MORE THAN 2 WEEKS WITH "ADDITIVE EFFECTS" ON PT/INR. I WILL DISCUSSED WITH DR. RODAS AND PHARMACIST - PRASANNA - HE WILL LOOK UP ON [facility] AND WILL GIVE ME MORE DETAILS TO SPECIFICS ON XARELTO WITH PHENYTEK - HOWEVER DURING OUR CONVERSATION HE WAS IN AGREEMENT WITH THE XARELTO AT 15MG BID X 3 WEEKS AND MOST LIKELY WE WILL EXTEND THIS FOR ANOTHER 3 WEEKS DUE TO THE EXTENT OF HIS BLOOD CLOTS AND THEN AFTER THAT 6 WEEKS GO DOWN TO 20MG DAILY AND MONITOR HIS SYMPTOMS. SEIZURE DISORDER - CONTINUE WITH HOME DOSE OF PHENYTEK BILATERAL LOWER EXTREMITY DVT'S - CONTINUE WITH ANTICOAGULATION - STOP SCD'S ORDERED BY PROTOCOL. DYSPNEA - IMPROVED WITH OXYGEN. HYPERTENSION - WILL START METOPROLOL 25MG DAILY TODAY GI PROPHYLAXIS - STARTED PROTONIX PO BID. AGREE WITH ECHO TO BE DONE TODAY. AGREE WITH TRANSFER TO CARDIAC STEPDOWN TODAY. Diagnosis/Problems: Clinical Quality Measures DVT/VTE Risk/Contraindication: Risk Factor Score Per Nursin RFS Level Per Nursing on Admit: 4+=Very High INGRID DOSHI MD Mar 02, 2016 10:14
[2016-03-02 12:00] VITALS: BP 157/88
[2016-03-02] MEDS ORDERED: AZITHROMYCIN IV ADD-VANTAGE 500 MG in SODIUM CHLORIDE (ADD-VANTAGE) 250 ML IV ONE (12:00)
[2016-03-02 16:13] VITALS: BP 158/83
[2016-03-02] MEDS: ACETAMINOPHEN 500 MG TAB (TYLENOL) PO PRN ×2 (17:04→21:05)
[2016-03-02 20:23] VITALS: BP 124/84
[2016-03-02] MEDS: ASPIRIN E.C. 325 MG (ECOTRIN) TABLET PO SCH (21:04)
[2016-03-02] MEDS: PHENYTEK PO SCH (21:05)
[2016-03-02] MEDS: PHENYTOIN 200 MG PO SCH (21:05)
[2016-03-03] VITALS: BP 136/81
[2016-03-03] MEDS: HEParin DRIP 25000 UNIT/500ML 500 ML IV SCH ×3 (01:22→20:04)
[2016-03-03 04:00] VITALS: BP 141/80
[2016-03-03] MEDS: NS IV 1000 ML 1,000 ML IV SCH ×3 (05:26→16:11)
[2016-03-03] MEDS: PANTOPRAZOLE 40 MG (PROTONIX) TAB PO SCH ×2 (05:50→20:02)
[2016-03-03 05:54] LABS: BASOPHILS % (AUTO) 0 % (0-10); EOSINOPHILS # (AUTO) 0.1 10^3/uL (0.0-0.3); EOSINOPHILS % (AUTO) 1 % (0-10); LYMPHOCYTES # (AUTO) 1.6 X 10^3 (1.0-4.0); LYMPHOCYTES % (AUTO) 26 % (12-44); MEAN CORPUSCULAR HEMOGLOBIN 33 PG (25-34); MEAN CORPUSCULAR HGB CONC 34 G/DL (32-36); MEAN CORPUSCULAR VOLUME 97 FL (80-99); MEAN PLATELET VOLUME 9.4 FL (7.4-10.4); MONOCYTES # (AUTO) 0.5 X 10^3 (0.0-1.0); MONOCYTES % (AUTO) 7 % (0-12); NEUTROPHILS # (AUTO) 4.1 X 10^3 (1.8-7.8); NEUTROPHILS % (AUTO) 66 % (42-75); PLATELET COUNT 155 10^3/uL (130-400); RED BLOOD COUNT 4.24 10^6/uL (4.35-5.85); RED CELL DISTRIBUTION WIDTH 14.7 % (10.0-14.5); WHITE BLOOD COUNT 6.2 10^3/uL (4.3-11.0)
[2016-03-03 06:18] LABS: ANION GAP 8 MMOL/L (5-14); BLOOD UREA NITROGEN 7 MG/DL (7-18); BUN/CREATININE RATIO 9; CALCIUM 8.5 MG/DL (8.5-10.1); CARBON DIOXIDE 18 MMOL/L (21-32); CHLORIDE 112 MMOL/L (98-107); CREATININE SERUM 0.75 MG/DL (0.60-1.30); GFR ESTIMATED > 60; GLUCOSE 113 MG/DL (70-105); MAGNESIUM 2.3 MG/DL (1.8-2.4); PHOSPHORUS 3.5 MG/DL (2.3-4.7); SODIUM 138 MMOL/L (135-145)
[2016-03-03] MEDS: RT-ALBUTEROL SULF 2.5 MG/3 ML PRE-MIX VIAL INH SCH ×3 (06:54→19:17)
[2016-03-03] MEDS: RT-ADVAIR HFA 115/21 MCG PER PUFF IH SCH ×2 (06:55→19:17)
[2016-03-03 08:50] VITALS: BP 139/83
[2016-03-03] MEDS: LACTOBACILLUS Acidoph/Bulgar (LACTINEX/FLORANEX) TAB PO SCH ×4 (08:54→20:02)
[2016-03-03] MEDS: AZITHROMYCIN 250 MG TAB (ZITHROMAX) PO SCH (08:54)
[2016-03-03] MEDS: cefTRIAXone INJECTION 1,000 MG in NORMAL SALINE (BAXTER MINI) 50 ML IV SCH (08:54)
--- NOTE | 2016-03-03 09:27 | Diagnostic Imaging Report ---
INDICATION: Fever, atelectasis COMPARISON: March 01, 2016 TECHNIQUE: Two radiographs of the chest dated March 03, 2016 FINDINGS: Cardiac silhouette is stable. No significant pulmonary vascular congestion. The lungs appear clear without focal pulmonary opacity. No pleural effusion. No pneumothorax. No acute osseous abnormality. IMPRESSION: Stable examination with mild cardiomegaly without superimposed congestive heart failure. Dictated by: Dictated on workstation # [id number]
--- NOTE | 2016-03-03 10:14 | Progress Note (SOAP) ---
Subjective Subjective/Events-last exam PT IS A 55 Y/O MALE WHO HAS RECENTLY BEEN DIAGNOSED WITH BILATERAL LOWER EXTREMITY DVT'S AND SADDLE EMBOLUS WITH PULMONARY EMBOLUS. THE PATIENT REPORTS INTERMITTENT COUGHING, HIS ENERGY IS IMPROVED, HE HAS BEEN SLEEPING WELL. HE STATES THAT HE IS READY FOR DISCHARGE SOON. Review of Systems General: Fatigue HEENT: No Head Aches Pulmonary: No Dyspnea, Cough Cardiovascular: No: Chest Pain Gastrointestinal: No: Abdominal Pain, Nausea Genitourinary: No Dysuria, No Frequency Musculoskeletal: No: back pain Neurological: No: Confusion, Weakness Objective Exam Vital Signs Date Time Temp Pulse Resp B/P Pulse Ox O2 Delivery O2 Flow Rate FiO2 03/03/16 06:56 93 Room Air 03/03/16 06:55 93 Room Air 03/03/16 04:00 99.1 78 18 141/80 95 Room Air 03/03/16 01:00 82 03/03/16 00:00 99.4 85 20 136/81 96 Room Air 03/02/16 20:55 Room Air 03/02/16 20:33 Room Air 03/02/16 20:27 93 Room Air 03/02/16 20:23 98.3 87 22 124/84 96 Room Air 03/02/16 19:00 96 03/02/16 16:13 101.1 111 20 158/83 95 Room Air 03/02/16 15:01 93 Room Air 03/02/16 13:17 Room Air 03/02/16 13:00 97 03/02/16 12:00 101.6 99 20 157/88 96 Room Air I & O 03/03/16 07:00 Intake Total 5690 ml Output Total 4900 ml Balance 790 ml Capillary Refill : Less Than 3 Seconds General Appearance: No Apparent Distress WD/WN HEENT: PERRL/EOMI TMs Normal Normal ENT Inspection Pharynx Normal Neck: Supple Respiratory: Chest Non Tender Lungs Clear Normal Breath Sounds No Accessory Muscle Use No Respiratory Distress Cardiovascular: Regular Rate, Rhythm No Edema No Murmur Normal Peripheral Pulses Gastrointestinal: normal bowel sounds non tender soft no organomegaly no pulsatile mass Extremity: Normal Capillary Refill No Calf Tenderness No Pedal Edema Neurologic/Psychiatric: Alert Oriented x3 No Motor/Sensory Deficits Normal Mood/Affect Skin: Normal Color Warm/Dry Lymphatic: No Adenopathy Results Lab Laboratory Tests 03/02/16 12:35: Activated Partial Thromboplast Time 89H 03/02/16 19:13: Activated Partial Thromboplast Time 90H 03/03/16 05:40: Activated Partial Thromboplast Time 116*H, Anion Gap 8, BUN/Creatinine Ratio 9, Basophils # (Auto) 0.0, Basophils (%) (Auto) 0, Blood Urea Nitrogen 7, Calcium Level 8.5, Carbon Dioxide Level 18L, Chloride Level 112H, Creatinine 0.75, Eosinophils # (Auto) 0.1, Eosinophils (%) (Auto) 1, Estimat Glomerular Filtration Rate > 60, Glucose Level 113H, Hematocrit 41, Hemoglobin 14.0, Lymphocytes # (Auto) 1.6, Lymphocytes (%) (Auto) 26, Magnesium Level 2.3, Mean Corpuscular Hemoglobin 33, Mean Corpuscular Hemoglobin Concent 34, Mean Corpuscular Volume 97, Mean Platelet Volume 9.4, Monocytes # (Auto) 0.5, Monocytes (%) (Auto) 7, Neutrophils # (Auto) 4.1, Neutrophils (%) (Auto) 66, Phosphorus Level 3.5, Platelet Count 155, Potassium Level 4.0, Red Blood Count 4.24L, Red Cell Distribution Width 14.7H, Sodium Level 138, White Blood Count 6.2 Microbiology 02/27/16 Blood Culture - Preliminary, Resulted No growth 02/27/16 Gram Stain - Final, Complete 02/27/16 Sputum Culture - Final, Complete Usual/normal chris isolated. Assessment/Plan Assessment/Plan Assess & Plan/Chief Complaint PULMONARY EMBOLUS BILATERAL LOWER EXTREMITY DVT'S DYSPNEA RECENT BRONCHITIS SEIZURE DISORDER HYPERTENSION PULMONARY EMBOLUS - PT ON HEPARIN DRIP, CONTINUE WITH CURRENT TREATMENT, MONITOR SYMPTOMS, - CONTINUE WITH IV HEPARIN UNTIL FRIDAY - WE WILL THEN START HIM ON XARELTO. - SEE DOCUMENTATION BELOW FOR RATIONALE: - THE PATIENT IS ON PHENYTEK FOR SEIZURE DISORDER, HAS BEEN ON THIS MEDICATION FOR YEARS WITH EXCELLENT SEIZURE CONTROL. HE IS NOT WILLING TO STOP THIS MEDICATION HE HAS HAD GOOD CONTROL OF HIS SYMPTOMS AND OVER THE YEARS HAD BEEN ON OTHER MEDICATIONS WITH LESS THAN OPTIMAL CONTROL OF HIS SEIZURES. AZAM IS ALSO SOMEWHAT IMPULSIVE FROM A FOOD INTAKE STANDPOINT AND TO CONTROL WARFARIN WOULD BE VERY DIFFICULT INDEED. I HAVE REVIEWED THE MEDICATION PROFILE FOR PHENYTEK AND ALL OF THE AVAILABLE ORAL ANTICOAGULANTS. EACH OF THE ORAL ANTICOAGULANTS HAVE INTERACTIONS WITH PHENYTOIN/PHENYTEK - XARELTO APPEARS TO BE THE BEST OPTION - RECOMMENDATIONS ARE FOR INCREASED DOSE OF XARELTO IF THE PHENYTOIN MUST BE CO-ADMINISTERED. THE REPORTS SHOW THAT PHENYTOIN AND COUMADIN CO-ADMINISTRATION WILL INCREASE ANTICOAGULANT EFFETS, THEN DECREASE THE EFFECTS IF USED FOR MORE THAN 2 WEEKS WITH "ADDITIVE EFFECTS" ON PT/INR WELL AN EFFECT ON HIS PHENYTOIN WITH INCREASED RISK OF SEIZURES. I HAVE DISCUSSED WITH DR. RODAS AND PHARMACIST - PRASANNA - HE STATES THAT THE INFORMATION FROM [employer] IS ESSENTIALLY DOCUMENTED ABOVE. HE STATES THAT THE INFORMATION IS IN AGREEMENT WITH THE XARELTO AT 15MG BID X 3 WEEKS AND EXTEND THIS FOR ANOTHER 3 WEEKS DUE TO THE EXTENT OF HIS BLOOD CLOTS AND THEN AFTER THAT 6 WEEKS GO DOWN TO 20MG DAILY AND MONITOR HIS SYMPTOMS. SEIZURE DISORDER - CONTINUE WITH HOME DOSE OF PHENYTEK BILATERAL LOWER EXTREMITY DVT'S - CONTINUE WITH ANTICOAGULATION - STOP SCD'S ORDERED BY PROTOCOL. DYSPNEA - IMPROVED WITH OXYGEN. HYPERTENSION - WILL START METOPROLOL 25MG DAILY TODAY GI PROPHYLAXIS - STARTED PROTONIX PO BID. ECHO NEGATIVE FEVER - CONTINUE WITH ROCEPHIN AND REPEAT CHEST XRAY NEGATIVE Diagnosis/Problems: Clinical Quality Measures DVT/VTE Risk/Contraindication: Risk Factor Score Per Nursin RFS Level Per Nursing on Admit: 4+=Very High INGRID DOSHI MD Mar 03, 2016 10:14
[2016-03-03 12:55] VITALS: BP 123/75
[2016-03-03 16:08] VITALS: BP 135/67
[2016-03-03] MEDS: PHENYTEK PO SCH (20:02)
[2016-03-03] MEDS: ASPIRIN E.C. 325 MG (ECOTRIN) TABLET PO SCH (20:02)
[2016-03-03] MEDS: PHENYTOIN 200 MG PO SCH (20:03)
[2016-03-03 20:17] VITALS: BP 137/82
[2016-03-04] VITALS: BP 135/76
[2016-03-04] MEDS: ALPRAZolam 0.5 MG (XANAX) TAB PO PRN (00:44)
[2016-03-04] MEDS: AZITHROMYCIN 250 MG TAB (ZITHROMAX) PO SCH (02:29)
[2016-03-04] MEDS: NS IV 1000 ML 1,000 ML IV SCH (02:30)
[2016-03-04 04:00] VITALS: BP 137/82
[2016-03-04] MEDS: HEParin DRIP 25000 UNIT/500ML 500 ML IV SCH (05:18)
[2016-03-04] MEDS: PANTOPRAZOLE 40 MG (PROTONIX) TAB PO SCH (05:19)
[2016-03-04 06:27] LABS: BASOPHILS % (AUTO) 0 % (0-10); EOSINOPHILS # (AUTO) 0.2 10^3/uL (0.0-0.3); EOSINOPHILS % (AUTO) 2 % (0-10); LYMPHOCYTES % (AUTO) 28 % (12-44); MEAN CORPUSCULAR HEMOGLOBIN 34 PG (25-34); MEAN CORPUSCULAR HGB CONC 34 G/DL (32-36); MEAN CORPUSCULAR VOLUME 98 FL (80-99); MEAN PLATELET VOLUME 9.6 FL (7.4-10.4); MONOCYTES # (AUTO) 0.7 X 10^3 (0.0-1.0); MONOCYTES % (AUTO) 9 % (0-12); NEUTROPHILS # (AUTO) 4.3 X 10^3 (1.8-7.8); NEUTROPHILS % (AUTO) 60 % (42-75); PLATELET COUNT 151 10^3/uL (130-400); RED BLOOD COUNT 4.09 10^6/uL (4.35-5.85); RED CELL DISTRIBUTION WIDTH 14.7 % (10.0-14.5); WHITE BLOOD COUNT 7.1 10^3/uL (4.3-11.0)
[2016-03-04 06:44] LABS: ANION GAP 9 MMOL/L (5-14); BLOOD UREA NITROGEN 7 MG/DL (7-18); BUN/CREATININE RATIO 10; CALCIUM 8.5 MG/DL (8.5-10.1); CARBON DIOXIDE 19 MMOL/L (21-32); CHLORIDE 110 MMOL/L (98-107); CREATININE SERUM 0.69 MG/DL (0.60-1.30); GFR ESTIMATED > 60; GLUCOSE 107 MG/DL (70-105); MAGNESIUM 2.3 MG/DL (1.8-2.4); PHOSPHORUS 3.7 MG/DL (2.3-4.7); POTASSIUM 3.8 MMOL/L (3.6-5.0); SODIUM 138 MMOL/L (135-145)
[2016-03-04] MEDS ORDERED: NORMAL SALINE (BAXTER MINI) 50 ML IV ONE (07:20)
[2016-03-04] MEDS ORDERED: cefTRIAXone 1 GM (ROCEPHIN) VIAL ONE (07:20)
[2016-03-04] MEDS: RT-ADVAIR HFA 115/21 MCG PER PUFF IH SCH (07:24)
[2016-03-04] MEDS: RT-ALBUTEROL SULF 2.5 MG/3 ML PRE-MIX VIAL INH SCH (07:24)
--- NOTE | 2016-03-04 07:42 | Pulmonary Progress Note ---
Subjective Subjective/Events-last exam Pt wants to go home. no complications noted. Exam Exam Vital Signs Date Time Temp Pulse Resp B/P Pulse Ox O2 Delivery O2 Flow Rate FiO2 03/04/16 04:00 97.0 74 18 137/82 95 Room Air 03/04/16 01:00 79 03/04/16 00:00 99.8 89 18 135/76 95 Room Air 03/03/16 20:17 99.4 97 18 137/82 94 Room Air 03/03/16 20:00 Room Air 03/03/16 19:20 Room Air 03/03/16 19:17 92 Room Air 03/03/16 19:00 95 03/03/16 16:08 98.5 91 18 135/67 95 Room Air 03/03/16 16:00 88 03/03/16 14:59 95 Room Air 03/03/16 12:55 98.5 79 18 123/75 95 Room Air 03/03/16 08:50 98.0 86 22 139/83 97 Room Air 03/03/16 08:00 Room Air I & O 03/04/16 07:00 Intake Total 4060 ml Output Total 3250 ml Balance 810 ml General Appearance: No Apparent Distress WD/WN HEENT: PERRL/EOMI TMs Normal Normal ENT Inspection Pharynx Normal Neck: Supple Respiratory: Chest Non Tender Lungs Clear Normal Breath Sounds No Accessory Muscle Use No Respiratory Distress Cardiovascular: Regular Rate, Rhythm No Edema No Murmur Normal Peripheral Pulses Capillary Refill: Less Than 3 Seconds Gastrointestinal: normal bowel sounds non tender soft no organomegaly no pulsatile mass Extremity: Normal Capillary Refill No Calf Tenderness No Pedal Edema Neurologic/Psychiatric: Alert Oriented x3 No Motor/Sensory Deficits Normal Mood/Affect Skin: Normal Color Warm/Dry Lymphatic: No Adenopathy Results Lab Laboratory Tests 03/03/16 05:40 03/04/16 06:19 Assessment/Plan Assessment/Plan 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
[2016-03-04 07:58] VITALS: BP 124/70
[2016-03-04] MEDS: LACTOBACILLUS Acidoph/Bulgar (LACTINEX/FLORANEX) TAB PO SCH (09:44)
[2016-03-04] MEDS: cefTRIAXone INJECTION 1,000 MG in NORMAL SALINE (BAXTER MINI) 50 ML IV SCH (09:44)
[2016-03-04] MEDS ORDERED: RIVAROXABAN 15 MG TABLET (XARELTO) PO ONE (09:45)
[2016-03-04] MEDS ORDERED: AZIT250T5 PO (09:58)
[2016-03-04] MEDS ORDERED: RIVA1TAB PO (09:58)
[2016-03-04] MEDS ORDERED: METO-270 PO (09:58)
[2016-03-04] MEDS ORDERED: PANT40TA3 PO (09:58)
--- NOTE | 2016-03-04 10:02 | Discharge Inst-Complex ---
PDI Med Rec & Follow Up Appt. New Medications: Rivaroxaban (Xarelto Starter Pack) 1 Each Tab.ds.pk 1 EACH PO UD 15mg by mouth twice daily x 21 days then 20mg by mouth daily #51 PKG Azithromycin (Azithromycin) 250 Mg Tablet 250 MG PO DAILY #3 TAB Metoprolol Succinate (Metoprolol Succinate) 25 Mg Tab.er.24h 25 MG PO DAILY #30 Ref 6 TAB Pantoprazole Sodium (Pantoprazole Sodium) 40 Mg Tablet.dr 40 MG PO BID@ #60 Ref 3 TAB Continued Medications: Albuterol Sulfate (Ventolin Hfa) 18 Gm Hfa.aer.ad 1 PUFF IH Q4H PRN SHORTNESS OF BREATH INHALER Aspirin (Aspirin EC) 325 Mg Tablet.dr 325 MG PO HS TAB Budesonide/Formoterol Fumarate (Symbicort 160-4.5 Mcg Inhaler) 10.2 Gm Hfa.aer.ad 1 PUFF IH BID INHALER D-Methorphan Hb/P-Epd HCl/Bpm (Bromfed Dm Cough Syrup) 118 Ml Syrup 5 ML PO Q4H PRN CONGESTION #120 ML Lactobacillus Combo No.11 (Probiotic) 1 Each Cap.sprink 1 CAP PO BID CAP Phenytoin Sodium Extended (Phenytek) 300 Mg Capsule 300 MG PO HS TAKES WITH 2 (200 MG) CAPS TO EQUAL 700MG TOTAL DOSE #30 TAB Phenytoin Sodium Extended (Phenytek) 200 Mg Capsule 400 MG PO HS TAKES 2 (200MG) CAPSULES ALONG WITH A 300MG FOR A TOTAL DAILY DOSE OF 700MG CAP Discontinued Medications: Amoxicillin/Potassium Clav (Augmentin 875-125 Tablet) 1 Each Tablet 1 TAB PO BID #14 FILLED 02-18-16 AND #6 FILLED 02-23-16 TAB Hydrochlorothiazide (Hydrochlorothiazide) 25 Mg Tablet 25 MG PO HS TAB Naproxen (Naproxen) 500 Mg Tablet 500 MG PO BID PRN PAIN TAB Prednisone (Prednisone) 20 Mg Tab 40 MG PO #10 TABS FILLED 02-22-16 TAKES 2 (20MG) TABLETS Days 5 TAB Prescription: Transmitted to Pharmacy Patient Instructions: APPT WITH [facility] IN THE NEXT 10 DAYS Activity, Diet and PDI Resume Normal Activity: Yes Discharge Diet: Regular Diet Drink 6-8 Glasses of Fluid/Day: Yes Driving Instructions: No Driving for 24 Hours Return to The Hospital For: ANY CONCERN FOR WORSENING ILLNESS, LIFE THREATENING ILLNESS OR WORSENING SHORTNESS OF BREATH Symptoms to Reoprt to : Bleeding Excessive, Fever Over 101 Degrees F, Pain/ Pressure in Chest, Questions/Concerns, Shortness of Breath For Problems or Questions: Contact Your Physician, Go to Emergency Room INGRID DOSHI MD Mar 04, 2016 10:02
--- NOTE | 2016-03-04 10:04 | Discharge Summary ---
Diagnosis/Chief Complaint Date of Admission Feb 27, 2016 at 12:11 Date of Discharge Discharge Date: Mar 04, 2016 Discharge Time: 1030 Admission Diagnosis Admission Diagnosis PULMONARY EMBOLUS DYSPNEA RECENT BRONCHITIS SEIZURE DISORDER HYPERTENSION Discharge Diagnosis PULMONARY EMBOLUS BILATERAL LOWER EXTREMITY DVT'S DYSPNEA RECENT BRONCHITIS SEIZURE DISORDER HYPERTENSION Reason Hospital Visit PT IS A 55 Y/O MALE WHO IS KNOWN TO ME FROM CLINIC. THE PATIENT REPORTS THAT HE HAS NOT BEEN FEELING WELL FOR SEVERAL WEEKS. APPARENTLY, AZAM WENT TO THE HOSPITAL AFTER ALIA DUE TO PERSISTENT COUGHING AND FATIGUE. HE STATES THAT HE WAS GIVEN ANTIBIOTICS, INFORMED THAT HE HAD BRONCHITIS AND HE IMPROVED SLIGHTLY WITH THE ANTIBIOTICS. HE WAS FEELING BETTER WHEN HE WENT TO MY OFFICE LAST WEEK FOR A "QUICK CHECK ON MY LUNGS BEFORE NEW YEARS". HE STATES THAT HE HAD BEEN FEELING A LITTLE BIT BETTER, AFTER BEING SEEN LAST FRIDAY, THEN OVER THE WEEKEND HE STARTED TO GET FATIGUED AGAIN AND SHORT OF BREATH. HE REPORTS THAT LAST NIGHT HIS SHORTNESS OF BREATH BECAME RATHER EXTREME AND WAS FEELING SO POORLY THAT HE DECIDED TO GO TO THE EMERGENCY DEPARTMENT FOR FURTHER EVALUATION. HE WAS FOUND TO HAVE AN ABNORMALITY ON CT SCAN, THEN A CT ANGIO SHOWED A SADDLE EMBOLUS IN HIS PULMONARY ARTERY. AZAM WAS STARTED ON IV HEPARIN DRIP AND ADMITTED TO THE ICU FOR FURTHER WORK-UP. Discharge Summary Discharge Physical Examination Allergies: Coded Allergies: No Known Drug Allergies (Verified , 12/23/06) Vitals & I&Os General Appearance: Alert, Oriented X3, Cooperative, No Acute Distress HEENT: Atraumatic, PERRLA Respiratory: Clear to Auscultation, Normal Air Movement Cardiovascular: Regular Rate Abdominal: Normal Bowel Sounds, Soft, Other (OBESES) Extremities: No Clubbing, No Cyanosis, No Edema Skin: No Rashes, No Significant Lesion Neuro: Normal Gait, Strength at 5/5 X4 Ext, Cranial Nerves 3-12 NL Psych/Mental Status: Mental Status NL, Mood NL Hospital Course PULMONARY EMBOLUS BILATERAL LOWER EXTREMITY DVT'S DYSPNEA RECENT BRONCHITIS SEIZURE DISORDER HYPERTENSION PULMONARY EMBOLUS - PT INITIALLY ON HEPARIN DRIP - ON DAY OF DISCHARGE, PT STARTED ON XARELTO, CONTINUE WITH CURRENT TREATMENT, MONITOR SYMPTOMS, - SEE DOCUMENTATION BELOW FOR RATIONALE: - THE PATIENT IS ON PHENYTEK FOR SEIZURE DISORDER, HAS BEEN ON THIS MEDICATION FOR YEARS WITH EXCELLENT SEIZURE CONTROL. HE IS NOT WILLING TO STOP THIS MEDICATION HE HAS HAD GOOD CONTROL OF HIS SYMPTOMS AND OVER THE YEARS HAD BEEN ON OTHER MEDICATIONS WITH LESS THAN OPTIMAL CONTROL OF HIS SEIZURES. AZAM IS ALSO SOMEWHAT IMPULSIVE FROM A FOOD INTAKE STANDPOINT AND TO CONTROL WARFARIN WOULD BE VERY DIFFICULT INDEED. I HAVE REVIEWED THE MEDICATION PROFILE FOR PHENYTEK AND ALL OF THE AVAILABLE ORAL ANTICOAGULANTS. EACH OF THE ORAL ANTICOAGULANTS HAVE INTERACTIONS WITH PHENYTOIN/PHENYTEK - XARELTO APPEARS TO BE THE BEST OPTION - RECOMMENDATIONS ARE FOR INCREASED DOSE OF XARELTO IF THE PHENYTOIN MUST BE CO-ADMINISTERED. THE REPORTS SHOW THAT PHENYTOIN AND COUMADIN CO-ADMINISTRATION WILL INCREASE ANTICOAGULANT EFFETS, THEN DECREASE THE EFFECTS IF USED FOR MORE THAN 2 WEEKS WITH "ADDITIVE EFFECTS" ON PT/INR WELL AN EFFECT ON HIS PHENYTOIN WITH INCREASED RISK OF SEIZURES. I HAVE DISCUSSED WITH DR. RODAS AND PHARMACIST - PRASANNA - HE STATES THAT THE INFORMATION FROM [employer] IS ESSENTIALLY DOCUMENTED ABOVE. HE STATES THAT THE INFORMATION IS IN AGREEMENT WITH THE XARELTO AT 15MG BID X 3 WEEKS AND EXTEND THIS FOR ANOTHER 3 WEEKS DUE TO THE EXTENT OF HIS BLOOD CLOTS AND THEN AFTER THAT 6 WEEKS GO DOWN TO 20MG DAILY AND MONITOR HIS SYMPTOMS. SEIZURE DISORDER - CONTINUE WITH HOME DOSE OF PHENYTEK BILATERAL LOWER EXTREMITY DVT'S - CONTINUE WITH ANTICOAGULATION - STOP SCD'S ORDERED BY PROTOCOL. DYSPNEA - IMPROVED WITH OXYGEN. HYPERTENSION - WILL START METOPROLOL 25MG DAILY TODAY GI PROPHYLAXIS - STARTED PROTONIX PO BID. ECHO NEGATIVE FEVER - REPEAT CHEST XRAY NEGATIVE Pending Labs Discharge Condition at discharge IMPROVED Instructions to patient/family Please see electonic discharge instructions given to patient. Discharge Medications Reviewed and agree with Discharge Medication list on patient's Discharge Instruction sheet Clinical Quality Measures DVT/VTE Risk/Contraindication: Risk Factor Score Per Nursin RFS Level Per Nursing on Admit: 4+=Very High INGRID DOSHI MD Mar 04, 2016 10:04
== END 2016-03-04 12:09 | disposition home or self-care (01) | DRG 176 ==
LOC: EDUNIT# 09:26 → ER 09:28 → ICU 12:11 → CSD 02-28 11:10 → 4TH 03-01 12:51
PROVIDERS: ADMIT Family Medicine; ATTEND Family Medicine
DX: I26.92 Saddle embolus of pulmonary artery without acute cor pulmonale (principal); I82.433 Acute embolism and thrombosis of popliteal vein, bilateral; G40.909 Epilepsy, unspecified, not intractable, without status epilepticus; I10 Essential (primary) hypertension; E66.01 Morbid (severe) obesity due to excess calories; G47.33 Obstructive sleep apnea (adult) (pediatric); Z68.42 Body mass index [BMI] 45.0-49.9, adult
CPT/HCPCS: 36415; 71010; 71020; 71275; 80048; 80053; 81000; 83605; 83735; 84100; 85007; 85025; 85027; 85610; 85730; 86141; 87040; 87070; 87205; 87804; 93005; 93041; 93306; 93970; 94640; 94664; 94760; 96361; 96365

== ENCOUNTER → 2017-10-29 | Outpatient (CLI) | payer BC ==
[~2017-10-29] VITALS: Ht 180.3 cm; Wt 148.4 kg
[~2017-10-29] MED LIST changes: +ACETAMINOPHEN 325 MG TABLET PO PRN; +ASPI325T32 PO; +AZIT250T12 PO; +BUDE10.2 IH; +IRON DEXTRAN 25 MG/NS 6.25 ML TOTAL VOLUME IV ONE; +IRON DEXTRAN INJECTION 975 MG in NS (IVPB) 250 ML IV ONE; +METO-387 PO; +NAPR-915 PO; -NAPR500T3 PO; +PANT40TA3 PO; +PRD20T PO; +RIVA1TAB PO; +RT-ALBUINH IH; +diphenhydrAMINE 50 MG/ML INJ (BENADRYL) IV PRN; +methylPREDNISolone 125 MG (Solu-MEDROL) VIAL IV PRN
[2017-10-29 12:45] VITALS: BP 152/87
== END ==
LOC: SDC 12:38 → EDSTATUS 12:51
PROVIDERS: ATTEND Family Medicine
DX: D50.9 Iron deficiency anemia, unspecified (principal)
CPT/HCPCS: 96365; 96366

== ENCOUNTER → 2018-09-04 | Outpatient (CLI) | payer BC ==
[~2018-09-04] MED LIST changes: -ACETAMINOPHEN 325 MG TABLET PO PRN; +HYDR-3456 PO; -IRON DEXTRAN 25 MG/NS 6.25 ML TOTAL VOLUME IV ONE; -IRON DEXTRAN INJECTION 975 MG in NS (IVPB) 250 ML IV ONE; +METR-145 PO; -METR500T21 PO; -diphenhydrAMINE 50 MG/ML INJ (BENADRYL) IV PRN; -methylPREDNISolone 125 MG (Solu-MEDROL) VIAL IV PRN
--- NOTE | 2018-09-04 15:11 | Diagnostic Imaging Report ---
PROCEDURE: US left lower extremity venous. TECHNIQUE: Multiple real-time grayscale images were obtained over the left lower extremity in various projections. Additional duplex Doppler and color Doppler images were also obtained. INDICATION: Left leg pain and swelling. Patient has prior history of DVT. FINDINGS: There is no evidence of left lower extremity DVT. Left lower extremity deep venous system shows normal compressibility with normal response to augmentation and Valsalva. No fluid collection or mass is seen. IMPRESSION: No evidence of left lower extremity DVT. Dictated by: Dictated on workstation # [id number]
--- NOTE | 2018-09-04 15:35 | Diagnostic Imaging Report ---
INDICATION: Chronic back pain extending into the left leg. TIME OF EXAM 3:13 PM FINDINGS: Curvature and alignment of the lumbar spine is normal. There are postop changes of posterior instrumented fusion with vertical stabilization rods and pedicle screws transfixing the L4-5 level. Intervertebral device at L4-5 is also seen. Hardware appears intact. No fracture or loosening is seen. Vertebral bodies showed normal stature. There is degenerative disc disease at L3-4 level with anterior spurring. IMPRESSION: Spondylosis and postsurgical change. No acute bony abnormality is detected. Dictated by: Dictated on workstation # [id number]
== END ==
LOC: RAD 14:17
PROVIDERS: ATTEND Nurse Practitioner Family
DX: M79.605 Pain in left leg (principal); M79.89 Other specified soft tissue disorders; M47.816 Spondylosis without myelopathy or radiculopathy, lumbar region; Z86.718 Personal history of other venous thrombosis and embolism; Z98.890 Other specified postprocedural states
CPT/HCPCS: 72100

== ENCOUNTER 2018-09-06 05:40 | Emergency (ER) | payer BC ==
[~2018-09-06] VITALS: Ht 180.3 cm; Wt 148.4 kg
[~2018-09-06 05:40] MED LIST changes: -HYDR-3456 PO
--- OUTSIDE RECORDS SUMMARY | 2018-09-06 05:46 | XMS REPORT ---
Author Author TRISTIAN VALENCIA Organization [facility] Address [address] [place] [address] Care Team Providers Care Airline Station Agent Name Role Phone TRISTIAN VALENCIA Unavailable PROBLEMS Unknown Problems ALLERGIES No Known Allergies ENCOUNTERS Encounter Location Date Diagnosis [facility] [address] [facility] [id number] [address] Aug, [facility] [address] [facility] [id number], [place] [address] Aug, Open bite of left hand, initial encounter S61.452A ; Bitten by dog, initial encounter W54.0XXA ; Open bite of right hand, initial encounter S61.451A and Encounter for immunization Z23 IMMUNIZATIONS Vaccine Route Administration Date Status TDAP (BOOSTRIX) IM Intramuscular September 10, 2017 Administered SOCIAL HISTORY Never Assessed REASON FOR VISIT dog bite left hand happened this morning JStrasserRN PLAN OF CARE Activity Details Follow Up prn Reason:if symptoms worsen or signs of infection develop VITAL SIGNS Weight 348.0 lbs 2017-09-10 Temperature 98.5 degrees Fahrenheit 2017-09-10 Heart Rate 88 bpm 2017-09-10 Respiratory Rate 20 2017-09-10 Blood pressure systolic 138 mmHg 2017-09-10 Blood pressure diastolic 86 mmHg 2017-09-10 MEDICATIONS Medication Instructions Dosage Frequency Start Date End Date Duration Status Phenytek 300 MG Orally Once a day 1 capsule 24h Active Phenytek 200 MG Orally Once a day 2 capsule 24h Active Pantoprazole Sodium 40 MG Orally Twice a day 1 tablet 12h Active Xarelto 20 MG Orally Once a day 1 tablet with food 24h Active Augmentin 875-125 MG Orally every 12 hrs 1 tablet 12h Aug, Aug, 05 days Active Metoprolol Succinate ER 25 MG Orally Once a day 1 tablet 24h Active RESULTS No Results PROCEDURES Procedure Date Ordered Result Body Site SINGLE IMMUNIZATION ADMIN September 10, 2017 INSTRUCTIONS MEDICATIONS ADMINISTERED No Known Medications
--- OUTSIDE RECORDS SUMMARY | 2018-09-06 05:46 | XMS REPORT ---
Author Author TRISTIAN VALENCIA [facility] Address [address] [place] [address] Care Team Providers Care System Operator Name Role Phone TRISTIAN VALENCIA Unavailable PROBLEMS Unknown Problems ALLERGIES No Information ENCOUNTERS Encounter Location Date Diagnosis [facility] [address] [facility] [id number] [address] Aug, [facility] [address] [facility] [id number], [place] [address] Aug, Open bite of left hand, initial encounter S61.452A ; Bitten by dog, initial encounter W54.0XXA ; Open bite of right hand, initial encounter S61.451A and Encounter for immunization Z23 IMMUNIZATIONS No Known Immunizations SOCIAL HISTORY Never Assessed REASON FOR VISIT Requests return call PLAN OF CARE VITAL SIGNS MEDICATIONS Unknown Medications RESULTS No Results PROCEDURES No Known procedures INSTRUCTIONS MEDICATIONS ADMINISTERED No Known Medications
--- OUTSIDE RECORDS SUMMARY | 2018-09-06 05:50 | XMS REPORT | CCD ---
Author Author Betty [facility]amanca Organization [facility] Address [address] [place] [address] Phone Care Team Providers Care [employer] Supervisor Name Role Phone PP Unavailable CCM Unavailable Summary Purpose Interface Exchange Insurance Providers Payer name Policy type / Coverage type Covered green party ID Effective Begin Date Effective End Date Blue Cross Blue 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[employer] 06/26/[address]: 727000917 Never smoker 06/26/[address]: 514085592 Never drinks alcohol 06/26/2015 Marital status Unknown [place] 04/26/2014 Allergies, Adverse Reactions, Alerts Substance Reaction Codes Entered Date Inactivated Date Status * NO KNOWN DRUG ALLERGIES Unknown 03/29/2014 No Inactive Date Active Past Medical History Illness Codes Condition Status Onset Date Resolved Date Encounter for removal of sutures ICD-9: V58.32 ICD-10: Z48.02 Active 07/21/2018 Unknown Cough ICD-9: 786.2 ICD-10: R05 Active 03/10/2016 Unknown Epilepsy, unspecified, not intractable, without status epilepticus ICD-9: 345.90 ICD-10: G40.909 Active 01/15/2016 Unknown Essential (primary) hypertension ICD-9: 401.9 ICD-10: I10 Active 03/10/2016 Unknown Other allergic rhinitis ICD-9: 477.8 ICD-10: J30.89 Active 02/22/2016 Unknown Acute laryngopharyngitis ICD-9: 465.0 ICD-10: J06.0 Active 02/22/2016 Unknown Encounter for therapeutic drug level monitoring ICD-9: V58.61 ICD-10: Z51.81 Active 02/02/2015 Unknown Anemia, unspecified ICD- 9: 285.9 ICD-10: D64.9 Active 10/28/2017 Unknown Other acute sinusitis ICD- 9: 461.8 ICD-10: J01.80 Active 11/11/2017 Unknown Encounter for screening for malignant neoplasm of prostate ICD-9: V76.44 ICD-10: Z12.5 Active 01/01/2015 Unknown Pain in right wrist ICD- 9: 719.43 ICD-10: M25.531 Active 12/27/2016 Unknown Rash and other nonspecific skin eruption ICD-9: 782.1 ICD-10: R21 Active 10/09/2016 Unknown Carpal tunnel syndrome, right upper limb ICD-9: 354.0 ICD-10: G56.01 Active 09/09/2016 Unknown Olecranon bursitis, right elbow ICD-9: 726.33 ICD-10: M70.21 Active 09/09/2016 Unknown Low back pain ICD-9: 724.2 ICD-10: M54.5 Active 08/08/2015 Unknown Slow transit constipation ICD-9: 564.01 ICD-10: K59.01 Active 03/29/2016 Unknown Encounter for follow-up examination after completed treatment for conditions other than malignant neoplasm ICD-9: V67.59 ICD-10: Z09 Active 03/10/2016 Unknown 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 ICD-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 Active 03/10/2016 Unknown Wheezing ICD-9: 786.07 ICD-10: R06.2 Active 02/22/2016 Unknown Morbid (severe) obesity due to excess calories ICD-9: 278.01 ICD-10: E66.01 Active 04/26/2014 Unknown Acute upper respiratory infection, unspecified ICD-9: 465.9 ICD-10: J06.9 Active 11/19/2015 Unknown Allergic rhinitis due to pollen ICD-9: 477.0 ICD-10: J30.1 Active 11/19/2015 Unknown Other exterminator helper termite (current) drug therapy ICD-9: V58.69 ICD-10: Z79.899 Active 09/07/2015 Unknown Candidiasis of skin and nail ICD-9: 112.3 ICD-10: B37.2 Active 08/31/2015 Unknown First degree hemorrhoids ICD-9: 455.6 ICD-10: K64.0 Active 08/08/2015 Unknown Obesity, unspecified ICD- 9: 278.00 ICD-10: E66.9 Active 08/28/2014 Unknown Hospital discharge follow-up ICD-9: V67.59 Active 11/17/2014 Unknown Small bowel obstruction ICD-9: 560.9 Active 11/17/2014 Unknown Abdominal pain ICD-9: 789.00 Active 10/31/2014 Unknown Diarrhea ICD-9: 787.91 Active 10/26/2014 Unknown Factor V Leiden mutation ICD-9: 289.81 Active 08/28/2014 Unknown Hx of deep venous thrombosis ICD-9: V12.51 Active 08/28/2014 Unknown OBESITY ICD-9: 278.00 Active 08/28/2014 Unknown Hematuria ICD-9: 599.70 Active 05/05/2014 Unknown Abscess and cellulitis ICD-9: 682.9 Active 04/26/2014 Unknown MORBID OBESITY ICD-9: 278.01 Active 04/26/2014 Unknown Hypertension Unknown Active 03/29/2014 Unknown ESSENTIAL HYPERTENSION ICD-9: 401.9 Active 03/29/2014 Unknown LONG-TERM USE ANTICOAGUL ICD-9: V58.61 Active 03/29/2014 Unknown Problems Condition Codes Effective Dates Condition Status Encounter for removal of sutures ICD-9: V58.32 ICD-10: Z48.02 07/21/2018 Active Cough ICD-9: 786.2 ICD-10: R05 03/10/2016 Active Epilepsy, unspecified, not intractable, without status epilepticus ICD-9: 345.90 ICD-10: G40.909 01/15/2016 Active Essential (primary) hypertension ICD-9: 401.9 ICD-10: I10 03/10/2016 Active Other allergic rhinitis ICD-9: 477.8 ICD-10: J30.89 02/22/2016 Active Acute laryngopharyngitis ICD-9: 465.0 ICD-10: J06.0 02/22/2016 Active Encounter for therapeutic drug level monitoring ICD-9: V58.61 ICD-10: Z51.81 02/02/2015 Active Anemia, unspecified ICD- 9: 285.9 ICD-10: D64.9 10/28/2017 Active Other acute sinusitis ICD- 9: 461.8 ICD-10: J01.80 11/11/2017 Active Encounter for screening for malignant neoplasm of prostate ICD-9: V76.44 ICD-10: Z12.5 01/01/2015 Active Pain in right wrist ICD- 9: 719.43 ICD-10: M25.531 12/27/2016 Active Rash and other nonspecific skin eruption ICD-9: 782.1 ICD-10: R21 10/09/2016 Active Carpal tunnel syndrome, right upper limb ICD-9: 354.0 ICD-10: G56.01 09/09/2016 Active Olecranon bursitis, right elbow ICD-9: 726.33 ICD-10: M70.21 09/09/2016 Active Low back pain ICD-9: 724.2 ICD-10: M54.5 08/08/2015 Active Slow transit constipation ICD-9: 564.01 ICD-10: K59.01 03/29/2016 Active Encounter for follow-up examination after completed treatment for conditions other than malignant neoplasm ICD-9: V67.59 ICD-10: Z09 03/10/2016 Active 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 ICD-10: I26.92 03/10/2016 Active Wheezing ICD-9: 786.07 ICD-10: R06.2 02/22/2016 Active Morbid (severe) obesity due to excess calories ICD-9: 278.01 ICD-10: E66.01 04/26/2014 Active Acute upper respiratory infection, unspecified ICD-9: 465.9 ICD-10: J06.9 11/19/2015 Active Allergic rhinitis due to pollen ICD-9: 477.0 ICD-10: J30.1 11/19/2015 Active Other shelter (current) drug therapy ICD-9: V58.69 ICD-10: Z79.899 09/07/2015 Active Candidiasis of skin and nail ICD-9: 112.3 ICD-10: B37.2 08/31/2015 Active First degree hemorrhoids ICD-9: 455.6 ICD-10: K64.0 08/08/2015 Active Obesity, unspecified ICD- 9: 278.00 ICD-10: E66.9 08/28/2014 Active Hospital discharge follow-up ICD-9: V67.59 11/17/2014 Active Small bowel obstruction ICD-9: 560.9 11/17/2014 Active Abdominal pain ICD-9: 789.00 10/31/2014 Active Diarrhea ICD-9: 787.91 10/26/2014 Active Factor V Leiden mutation ICD-9: 289.81 08/28/2014 Active Hx of deep venous thrombosis ICD-9: V12.51 08/28/2014 Active OBESITY ICD-9: 278.00 08/28/2014 Active Hematuria ICD-9: 599.70 05/05/2014 Active Abscess and cellulitis ICD-9: 682.9 04/26/2014 Active MORBID OBESITY ICD-9: 278.01 04/26/2014 Active Hypertension Unknown 03/29/2014 Active ESSENTIAL HYPERTENSION ICD-9: 401.9 03/29/2014 Active LONG-TERM USE ANTICOAGUL ICD-9: V58.61 03/29/2014 Active Medications Medication Codes Instructions Start Date Stop Date Status Fill Instructions Phenytek 300 mg capsule RxNorm: 445413 TAKE ONE CAPSULE BY MOUTH DAILY WITH TWO 200 MG CAPS TO EQUAL 700 MG 07/21/2018 11/01/2018 Active Phenytek 300 mg capsule RxNorm: 424826 TAKE ONE CAPSULE BY MOUTH DAILY WITH TWO 200 MG CAPS TO EQUAL 700 MG 07/21/2018 11/17/2018 Active Xarelto 20 mg tablet RxNorm: 6548659 TAKE ONE TABLET BY MOUTH DAILY 07/17/2018 12/13/2018 Active pantoprazole 40 mg tablet,delayed release RxNorm: 465566 TAKE ONE TABLET BY MOUTH TWICE A DAY AT 7AM AND 9PM 07/06/2018 01/01/2019 Active Zyrtec 10 mg tablet RxNorm: 1864919 1 Tablet(s) PO daily 03/13/2018 07/10/2018 Inactive Zyrtec 10 mg tablet RxNorm: 2694896 1 Tablet(s) PO daily 02/12/2018 03/12/2018 Inactive Phenytek 200 mg capsule RxNorm: 282827 Capsule(s) TAKE TWO CAPSULES BY MOUTH DAILY WITH 300 MG CAPSULE TO EQUAL 700 MG TOTAL DAILY 01/28/2018 06/26/2018 Inactive MUST HAVE BRAND NAME MEDICATION Augmentin 875 mg-125 mg tablet RxNorm: 566697 1 Tablet(s) PO BID 01/28/2018 01/30/2018 Inactive prednisone 20 mg tablet RxNorm: 605834 2 Tablet(s) PO daily 01/28/2018 02/01/2018 Inactive Phenytek 300 mg capsule RxNorm: 841902 Capsule(s) TAKE ONE CAPSULE BY MOUTH DAILY WITH TWO 200 MG CAPS TO EQUAL 700 MG 01/28/2018 06/26/2018 Inactive MUST HAVE BRAND NAME MEDICATION Phenytek 300 mg capsule RxNorm: 953693 Capsule(s) TAKE ONE CAPSULE BY MOUTH DAILY WITH TWO 200 MG CAPS TO EQUAL 700 MG 01/22/2018 01/27/2018 Inactive Xarelto 20 mg tablet RxNorm: 8406589 TAKE ONE TABLET BY MOUTH DAILY 01/19/2018 07/16/2018 Inactive pantoprazole 40 mg tablet,delayed release RxNorm: 313529 TAKE ONE TABLET BY MOUTH TWICE A DAY AT 7AM AND 9PM 01/06/2018 07/04/2018 Inactive metoprolol succinate ER 25 mg tablet,extended release 24 hr RxNorm: 609452 Tablet(s) TAKE ONE TABLET BY MOUTH DAILY 12/11/2017 09/06/2018 Active Phenytek 200 mg capsule RxNorm: 911859 TAKE TWO CAPSULES BY MOUTH DAILY WITH 300 MG CAPSULE TO EQUAL 700 MG TOTAL DAILY 12/11/2017 01/27/2018 Inactive cefdinir 300 mg capsule RxNorm: 146186 1 Capsule(s) PO BID 11/14/2017 11/23/2017 Inactive cefdinir 300 mg capsule RxNorm: 537237 1 Capsule(s) PO BID 11/14/2017 11/13/2017 Inactive Phenergan with Codeine Syrup RxNorm: 5-10 Milliliter(s) PO QID as needed cough 11/11/2017 No Stop Date Active Zithromax Z-Kevin 250 mg tablet RxNorm: 801983 1 Tablet(s) PO UD 11/11/2017 No Stop Date Active prednisone 10 mg tablet RxNorm: 658352 Tablet(s) PO UD 11/11/2017 No Stop Date Active 6,5,4,3,2,1 Kenalog 40 mg/mL suspension for injection RxNorm: 4477975 1.5 Milliliter(s) Inj 11/11/2017 11/11/2017 Inactive metoprolol succinate ER 25 mg tablet,extended release 24 hr RxNorm: 469687 TAKE ONE TABLET BY MOUTH DAILY 09/15/2017 12/10/2017 Inactive Phenytek 300 mg capsule RxNorm: 618126 TAKE ONE CAPSULE BY MOUTH DAILY WITH TWO 200 MG CAPS TO EQUAL 700 MG 09/09/2017 01/21/2018 Inactive Phenytek 200 mg capsule RxNorm: 354954 TAKE TWO CAPSULES BY MOUTH DAILY WITH 300 MG CAPSULE TO EQUAL 700 MG TOTAL DAILY 08/26/2017 12/10/2017 Inactive pantoprazole 40 mg tablet,delayed release RxNorm: 997649 TAKE ONE TABLET BY MOUTH TWICE A DAY AT 7AM AND 9PM 08/11/2017 01/05/2018 Inactive Xarelto 20 mg tablet RxNorm: 0283415 Tablet(s) TAKE ONE TABLET BY MOUTH DAILY 06/25/2017 01/18/2018 Inactive metoprolol succinate ER 25 mg tablet,extended release 24 hr RxNorm: 304535 TAKE ONE TABLET BY MOUTH DAILY 06/20/2017 09/14/2017 Inactive Phenytek 200 mg capsule RxNorm: 941628 TAKE TWO CAPSULES BY MOUTH DAILY WITH 300 MG CAPSULE TO EQUAL 700 MG TOTAL DAILY 06/02/2017 08/25/2017 Inactive metoprolol succinate ER 25 mg tablet,extended release 24 hr RxNorm: 278885 TAKE ONE TABLET BY MOUTH DAILY 03/24/2017 06/19/2017 Inactive Phenytek 300 mg capsule RxNorm: 205394 TAKE ONE CAPSULE BY MOUTH DAILY WITH TWO 200 MG CAPS TO EQUAL 700 MG 03/12/2017 09/07/2017 Inactive Phenytek 200 mg capsule RxNorm: 148125 TAKE TWO CAPSULES BY MOUTH DAILY WITH 300 MG CAPSULE TO EQUAL 700 MG TOTAL DAILY 02/03/2017 06/01/2017 Inactive pantoprazole 40 mg tablet,delayed release RxNorm: 763528 TAKE ONE TABLET BY MOUTH TWICE A DAY AT 7AM AND 9PM 01/27/2017 07/25/2017 Inactive Ventolin HFA 90 mcg/actuation aerosol inhaler RxNorm: 243194 INHALE ONE PUFF BY MOUTH EVERY 4 TO 6 HOURS NEEDED 01/13/2017 03/19/2017 Inactive mupirocin 2 % topical ointment RxNorm: 210036 1 Application TOP BID 12/27/2016 01/05/2017 Inactive Xarelto 20 mg tablet RxNorm: 9446228 TAKE ONE TABLET BY MOUTH DAILY 11/28/2016 06/24/2017 Inactive Xarelto 20 mg tablet RxNorm: 9186792 TAKE ONE TABLET BY MOUTH DAILY 10/18/2016 11/27/2016 Inactive prednisone 10 mg tablet RxNorm: 884485 Tablet(s) PO UD 10/16/2016 10/21/2016 Inactive 6,5,4,3,2,1 prednisone 10 mg tablet RxNorm: 912492 Tablet(s) PO UD 10/16/2016 10/15/2016 Inactive 6,5,4,3,2,1 prednisone 20 mg tablet RxNorm: 622845 2 Tablet(s) PO daily 10/09/2016 10/13/2016 Inactive metoprolol succinate ER 25 mg tablet,extended release 24 hr RxNorm: 863064 TAKE ONE TABLET BY MOUTH DAILY 09/26/2016 03/23/2017 Inactive Phenytek 300 mg capsule RxNorm: 968140 TAKE ONE CAPSULE BY MOUTH DAILY WITH TWO 200 MG CAPS TO EQUAL 700 MG 09/17/2016 03/11/2017 Inactive Phenytek 200 mg capsule RxNorm: 633037 TAKE TWO CAPSULES BY MOUTH DAILY WITH 300 MG CAPSULE TO EQUAL 700 MG TOTAL DAILY 09/03/2016 01/30/2017 Inactive Xarelto 20 mg tablet RxNorm: 4392763 TAKE ONE TABLET BY MOUTH DAILY 07/23/2016 10/17/2016 Inactive pantoprazole 40 mg tablet,delayed release RxNorm: 403779 TAKE ONE TABLET BY MOUTH TWICE A DAY AT 7 AM AND 9 PM 07/02/2016 12/28/2016 Inactive Xarelto 20 mg tablet RxNorm: 0675910 1 Tablet(s) PO daily 03/25/2016 07/22/2016 Inactive Symbicort 160 mcg-4.5 mcg/actuation HFA aerosol inhaler RxNorm: 6454861 2 Puff(s) INH BID 03/11/2016 No Stop Date Active Phenytek 200 mg capsule RxNorm: 537171 TAKE TWO CAPSULES BY MOUTH DAILY WITH 300 MG CAPSULE TO EQUAL 700 MG TOTAL DAILY 03/08/2016 09/02/2016 Inactive prednisone 20 mg tablet RxNorm: 846269 2 Tablet(s) PO daily 02/23/2016 02/27/2016 Inactive Ventolin HFA 90 mcg/actuation aerosol inhaler RxNorm: 422043 1 Puff(s) INH Q4-6H as needed 02/23/2016 01/12/2017 Inactive Augmentin 875 mg-125 mg tablet RxNorm: 829314 1 Tablet(s) PO BID 02/23/2016 02/25/2016 Inactive nystatin 100,000 unit/gram topical powder RxNorm: 986929 1 Gram(s) TOP TID 01/16/2016 01/25/2016 Inactive Phenergan-Codeine 6.25 mg-10 mg/5 mL syrup RxNorm: 044946 5-10 Milliliter(s) PO Q6 as needed cough 12/01/2015 12/26/2016 Inactive Zithromax 250 mg tablet RxNorm: 016381 1 Tablet(s) PO daily 11/23/2015 11/26/2015 Inactive Zithromax 250 mg tablet RxNorm: 401483 1 Tablet(s) PO daily 11/23/2015 11/22/2015 Inactive Zithromax Z-Kevin 250 mg tablet RxNorm: 142894 1 Tablet(s) PO UD 11/20/2015 11/24/2015 Inactive zpack Kenalog 40 mg/mL suspension for injection RxNorm: 8351963 1 Milliliter(s) Inj 11/20/2015 11/20/2015 Inactive Coumadin 4 mg tablet RxNorm: 185447 TAKE TWO TABLETS BY MOUTH EVERY EVENING FOR 3 DAYS, THEN TAKE TAKE ONE TABLET BY MOUTH EVERY EVENING THEREAFTER 11/20/2015 03/10/2016 Inactive hydrochlorothiazide 25 mg tablet RxNorm: 488264 TAKE ONE TABLET BY MOUTH DAILY 10/11/2015 03/10/2016 Inactive triamcinolone acetonide 0.025 % topical ointment RxNorm: 7277986 1 Application TOP BID 09/01/2015 No Stop Date Active nystatin 100,000 unit/gram topical cream RxNorm: 291386 1 Gram(s) TOP BID 09/01/2015 09/08/2016 Inactive Phenytek 300 mg capsule RxNorm: 124190 1 Capsule(s) PO daily take with two 200mg tablets to equal 700mg 09/01/2015 03/28/2016 Inactive nystatin 100,000 unit/gram topical powder RxNorm: 820937 1 Application TOP 09/01/2015 09/01/2015 Inactive Anucort-HC 25 mg suppository RxNorm: 5677528 1 Suppository RTL BID x 1 week then as needed 08/09/2015 No Stop Date Active Phenytek 300 mg capsule RxNorm: 361858 1 Capsule(s) PO daily take with two 200mg tablets to equal 700mg 08/02/2015 08/31/2015 Inactive Phenytek 200 mg capsule RxNorm: 988057 Capsule(s) TAKE TWO CAPSULES BY MOUTH DAILY. TAKE WITH 300MG CAPSULE TO EQUAL 700MG TOTAL DAILY. 08/02/2015 02/27/2016 Inactive lorazepam 1 mg tablet RxNorm: 647587 1 Tablet(s) PO QID as needed seizure activity 06/26/2015 07/25/2015 Inactive Phenytek 200 mg capsule RxNorm: 056988 TAKE TWO CAPSULES BY MOUTH DAILY. TAKE WITH 300MG CAPSULE TO EQUAL 700MG TOTAL DAILY. 05/25/2015 07/23/2015 Inactive Phenytek 200 mg capsule RxNorm: 667712 TAKE TWO CAPSULES BY MOUTH DAILY. TAKE WITH 300MG CAPSULE TO EQUAL 700MG TOTAL DAILY. 05/03/2015 05/24/2015 Inactive hydrochlorothiazide 25 mg tablet RxNorm: 876162 TAKE ONE TABLET BY MOUTH DAILY 03/27/2015 09/22/2015 Inactive hydrochlorothiazide 25 mg tablet RxNorm: 591398 TAKE ONE TABLET BY MOUTH DAILY 03/27/2015 09/22/2015 Inactive Phenytek 300 mg capsule RxNorm: 611535 1 Capsule(s) PO daily take with 2 200mg tablets to equal 700mg 01/04/2015 08/01/2015 Inactive Coumadin 1 mg tablet RxNorm: 813123 TAKE 1 TABLET BY MOUTH DOCTOR DIRECTED 12/19/2014 03/18/2015 Inactive Coumadin 4 mg tablet RxNorm: 861303 1 Tablet(s) PO QPM when starting, pt to take 4mg two pills nightly x 3 nights then take one pill daily) 12/05/2014 06/25/2015 Inactive Phenytek 200 mg capsule RxNorm: 788119 TAKE TWO CAPSULES BY MOUTH DAILY. TAKE WITH 300MG CAPSULE TO EQUAL 700MG TOTAL DAILY. 11/08/2014 05/02/2015 Inactive metronidazole 500 mg tablet RxNorm: 727024 1 Tablet(s) PO TID 11/01/2014 11/10/2014 Inactive hydrochlorothiazide 25 mg tablet RxNorm: 599472 1 Tablet(s) PO daily 2014 03/26/2015 Inactive Coumadin 1 mg tablet RxNorm: 543880 TAKE 1 TABLET BY MOUTH DOCTOR DIRECTED 08/19/2014 10/31/2014 Inactive Coumadin 1 mg tablet RxNorm: 348717 1 Tablet(s) PO as doctor directed 07/21/2014 08/18/2014 Inactive Coumadin 1 mg tablet RxNorm: 380041 1 Tablet(s) PO as doctor directed 07/21/2014 07/20/2014 Inactive hydrochlorothiazide 12.5 mg tablet RxNorm: 808028 1 Tablet(s) PO daily 06/15/2014 08/28/2014 Inactive Coumadin 5 mg tablet RxNorm: 292704 1 Tablet(s) PO QPM 05/12/2014 10/31/2014 Inactive check lab in 2 weeks Bactrim DS 800 mg-160 mg tablet RxNorm: 096144 1 Tablet(s) PO BID 05/10/2014 05/09/2014 Inactive start after UA given to lab Bactrim DS 800 mg-160 mg tablet RxNorm: 596769 1 Tablet(s) PO BID 05/10/2014 05/16/2014 Inactive start after UA given to lab today Keflex 500 mg capsule RxNorm: 565002 1 Capsule(s) PO TID 04/26/2014 05/05/2014 Inactive Phenytek 300 mg capsule RxNorm: 806082 1 Capsule(s) PO daily 03/29/2014 03/28/2014 Inactive Phenytek 300 mg capsule RxNorm: 433750 1 Capsule(s) PO daily take with 2 200mg tablets to equal 700mg 03/29/2014 10/24/2014 Inactive Phenytek 200 mg capsule RxNorm: 641986 2 Capsule(s) PO daily take with a 300mg capsule to equal 700mg daily 03/29/2014 10/24/2014 Inactive Coumadin 4 mg tablet RxNorm: 551918 1 Tablet(s) PO QPM when starting, pt to take 4mg two pills nightly x 3 nights then take one pill daily) 03/29/2014 05/11/2014 Inactive hydrochlorothiazide 12.5 mg tablet RxNorm: 115510 1 Tablet(s) PO daily 03/29/2014 06/14/2014 Inactive Aspirin Low Dose 81 mg tablet,delayed release RxNorm: 084222 1 Tablet(s) PO daily No Start Date Active Phenergan-Codeine 6.25 mg-10 mg/5 mL syrup RxNorm: 911740 5-10 Milliliter(s) PO Q6 as needed cough No Start Date 11/30/2015 Inactive pantoprazole 40 mg tablet,delayed release RxNorm: 255971 1 Tablet(s) PO daily No Start Date 07/01/2016 Inactive Xarelto 20 mg tablet RxNorm: 0598395 Tablet(s) PO No Start Date 03/24/2016 Inactive 15mg BID x 21 days then 20mg daily lorazepam 0.5 mg tablet RxNorm: 147234 1 Tablet(s) PO as doctor directed for seizures No Start Date 06/25/2015 Inactive Symbicort 160 mcg-4.5 mcg/actuation HFA aerosol inhaler RxNorm: 6511699 inhalation No Start Date 03/10/2016 Inactive Phenytek oral RxNorm: 825930 oral No Start Date 03/28/2014 Inactive metoprolol succinate ER 25 mg tablet,extended release 24 hr RxNorm: 064006 1 Tablet(s) PO daily No Start Date 09/25/2016 Inactive aspirin 325 mg tablet,delayed release RxNorm: 894776 1 Tablet(s) PO QHS No Start Date 03/04/2016 Inactive Medication Administered Medication Codes Instructions Start Date Status Kenalog 40 mg/mL suspension for injection RxNorm: 0360369 1.5Milliliter 11/11/2017 No longer Active Kenalog 40 mg/mL suspension for injection RxNorm: 4327662 1Milliliter 11/20/2015 No longer Active Immunizations Vaccine Codes Date Status Tetanus, Diptheria, Pertussis CVX: 113 09/10/2017 completed Tetanus/Diptheria CVX: 113 09/10/2017 completed Influenza CVX: 141 04/23/2016 completed Assessments Condition Codes Effective Dates Encounter for removal of sutures ICD-10: Z48.02 ICD-9: V58.32 07/21/2018 Essential (primary) hypertension ICD-10: I10 ICD-9: 401.9 02/12/2018 Epilepsy, unspecified, not intractable, without status epilepticus ICD-10: G40.909 ICD-9: 345.90 02/12/2018 Other allergic rhinitis ICD-10: J30.89 ICD-9: 477.8 02/12/2018 Cough ICD-10: R05 ICD-9: 786.2 02/12/2018 Acute laryngopharyngitis ICD-10: J06.0 ICD-9: 465.0 01/28/2018 Encounter for therapeutic drug level monitoring ICD-10: Z51.81 ICD-9: V58.61 01/28/2018 Anemia, unspecified ICD-10: D64.9 ICD-9: 285.9 11/25/2017 Other acute sinusitis ICD-10: J01.80 ICD-9: 461.8 11/11/2017 Encounter for screening for malignant neoplasm of prostate ICD- 10: Z12.5 ICD-9: V76.44 10/20/2017 Pain in right wrist ICD-10: M25.531 ICD-9: 719.43 12/27/2016 Rash and other nonspecific skin eruption ICD-10: R21 ICD-9: 782.1 10/09/2016 Carpal tunnel syndrome, right upper limb ICD-10: G56.01 ICD-9: 354.0 09/09/2016 Olecranon bursitis, right elbow ICD-10: M70.21 ICD-9: 726.33 09/09/2016 Low back pain ICD-10: M54.5 ICD-9: 724.2 05/31/2016 Slow transit constipation ICD-10: K59.01 ICD-9: 564.01 03/29/2016 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 ICD-9: 415.13 03/11/2016 Encounter for follow-up examination after completed treatment for conditions other than malignant neoplasm ICD-10: Z09 ICD-9: V67.59 03/11/2016 Wheezing ICD-10: R06.2 ICD-9: 786.07 02/23/2016 Morbid (severe) obesity due to excess calories ICD-10: E66.01 ICD-9: 278.01 12/26/2015 Allergic rhinitis due to pollen ICD-10: J30.1 ICD-9: 477.0 11/20/2015 Acute upper respiratory infection, unspecified ICD-10: J06.9 ICD-9: 465.9 11/20/2015 Other exterminator helper termite (current) drug therapy ICD-10: Z79.899 ICD-9: V58.69 09/08/2015 Candidiasis of skin and nail ICD-10: B37.2 ICD-9: 112.3 09/01/2015 First degree hemorrhoids ICD-10: K64.0 ICD-9: 455.6 08/09/2015 Obesity, unspecified ICD-10: E66.9 ICD-9: 278.00 01/02/2015 Small bowel obstruction ICD-9: 560.9 11/18/2014 Hospital discharge follow-up ICD-9: V67.59 11/18/2014 ESSENTIAL HYPERTENSION ICD-9: 401.9 11/18/2014 Abdominal pain ICD-9: 789.00 11/01/2014 Diarrhea ICD-9: 787.91 11/01/2014 Hx of deep venous thrombosis ICD-9: V12.51 2014 OBESITY ICD-9: 278.00 2014 Factor V Leiden mutation ICD-9: 289.81 2014 Hematuria ICD-9: 599.70 05/05/2014 LONG-TERM USE ANTICOAGUL ICD-9: V58.61 05/05/2014 Abscess and cellulitis ICD-9: 682.9 04/26/2014 MORBID OBESITY ICD-9: 278.01 04/26/2014 Reason For Visit Reason For Visit Effective Dates Notes cough 02/12/2018 sinus congestion 01/28/2018 sinus congestion 11/11/2017 weight gain/obesity 10/17/2017 weight gain/obesity 06/06/2017 blood pressure followup 04/11/2017 blood pressure followup 01/27/2017 hand pain 12/27/2016 rash 10/09/2016 hand pain 09/09/2016 pain 05/31/2016 body aches Hospital Follow Up 03/29/2016 Hospital Follow Up 03/11/2016 sinus congestion 02/23/2016 Post-op wound 01/16/2016 hypertension 12/26/2015 sinus congestion 11/20/2015 rash 09/01/2015 hypertension 08/09/2015 hypertension 06/26/2015 hypertension 11/18/2014 hypertension 11/01/2014 hypertension 10/27/2014 hypertension 2014 urinary frequency 05/05/2014 hypertension 04/26/2014 hypertension 03/29/2014 Results Observation Observation Code Item Item Code Result Date Comp Metabolic Vtm086 NA 141 mEq/L 09/09/2016 Comp Metabolic Ogg143 K 3.8 mEq/L 09/09/2016 Comp Metabolic Ytx133 CL 108 mEq/L 09/09/2016 Comp Metabolic Uzf720 CO2 24.0 mEq/L 09/09/2016 Comp Metabolic Ynj050 ANION GAP 13 09/09/2016 Comp Metabolic Bhb249 GLUCOSE 134 mg/dL 09/09/2016 Comp Metabolic Saq369 Creat 0.8 mg/dL 09/09/2016 Comp Metabolic Byv292 eGFR 113 ml/min/1.73m2 09/09/2016 Comp Metabolic Bnl249 BUN 16 mg/dL 09/09/2016 Comp Metabolic Lbq597 B/C Ratio 21.1 Ratio 09/09/2016 Comp Metabolic Rgm970 CALCIUM 8.8 mg/dL 09/09/2016 Comp Metabolic Fua824 ALK PHOS 111 U/L 09/09/2016 Comp Metabolic Dnf108 AST(SGOT) 16 U/L 09/09/2016 Comp Metabolic Nck905 ALT(SGPT) 16 U/L 09/09/2016 Comp Metabolic Ssb056 BILI T 0.4 mg/dL 09/09/2016 Comp Metabolic Deu839 ALBUMIN 3.8 g/dL 09/09/2016 Comp Metabolic Qht184 TPRO 7.0 g/dL 09/09/2016 Comp Metabolic Jni110 GLOB 3.2 g/dL 09/09/2016 Comp Metabolic Yzp226 A/G Ratio 1.2 Ratio 09/09/2016 Comp Metabolic Xlh489 Osmo 284 mOsmo 09/09/2016 Cbc With Differential Ord2 WBC 6.45 K/ul 09/09/2016 Cbc With Differential Ord2 RBC 4.32 M/ul 09/09/2016 Cbc With Differential Ord2 HGB 14.1 g/dl 09/09/2016 Cbc With Differential Ord2 HCT 41.7 % 09/09/2016 Cbc With Differential Ord2 Neut% 59.4 % 09/09/2016 Cbc With Differential Ord2 MCV 96.5 fl 09/09/2016 Cbc With Differential Ord2 Lymph% 28.4 % 09/09/2016 Cbc With Differential Ord2 MCH 32.6 pg 09/09/2016 Cbc With Differential Ord2 [place]% 10.2 % 09/09/2016 Cbc With Differential Ord2 MCHC 33.8 pg 09/09/2016 Cbc With Differential Ord2 Eos% 1.7 % 09/09/2016 Cbc With Differential Ord2 PLT 178 K/ul 09/09/2016 Cbc With Differential Ord2 Baso% 0.3 % 09/09/2016 Cbc With Differential Ord2 RDW 13.4 % 09/09/2016 Cbc With Differential Ord2 Neut ABS# 3.83 K/ul 09/09/2016 Cbc With Differential Ord2 Lymph ABS# 1.83 K/ul 09/09/2016 Cbc With Differential Ord2 [place] ABS# 0.7 K/ul 09/09/2016 Cbc With Differential Ord2 Eos ABS# 0.1 K/ul 09/09/2016 Cbc With Differential Ord2 Baso ABS# 0.0 K/ul 09/09/2016 Dilantin Ord7 DILANTIN 12.5 UG/ML 09/09/2016 Tsh Ord6 hTSH II 1.64 uIU/mL 09/09/2016 Cbc With Differential Ord2 WBC 7.66 K/ul 12/26/2015 Cbc With Differential Ord2 RBC 4.84 M/ul 12/26/2015 Cbc With Differential Ord2 HGB 16.6 g/dl 12/26/2015 Cbc With Differential Ord2 HCT 48.1 % 12/26/2015 Cbc With Differential Ord2 Neut% 67.2 % 12/26/2015 Cbc With Differential Ord2 MCV 99.4 fl 12/26/2015 Cbc With Differential Ord2 Lymph% 22.3 % 12/26/2015 Cbc With Differential Ord2 MCH 34.3 pg 12/26/2015 Cbc With Differential Ord2 [place]% 8.7 % 12/26/2015 Cbc With Differential Ord2 MCHC 34.5 pg 12/26/2015 Cbc With Differential Ord2 Eos% 1.4 % 12/26/2015 Cbc With Differential Ord2 PLT 165 K/ul 12/26/2015 Cbc With Differential Ord2 Baso% 0.4 % 12/26/2015 Cbc With Differential Ord2 RDW 14.1 % 12/26/2015 Cbc With Differential Ord2 Neut ABS# 5.14 K/ul 12/26/2015 Cbc With Differential Ord2 Lymph ABS# 1.71 K/ul 12/26/2015 Cbc With Differential Ord2 [place] ABS# 0.7 K/ul 12/26/2015 Cbc With Differential Ord2 Eos ABS# 0.1 K/ul 12/26/2015 Cbc With Differential Ord2 Baso ABS# 0.0 K/ul 12/26/2015 Tsh Ord6 hTSH II 2.81 uIU/mL 12/26/2015 Comp Metabolic Pee381 NA 137 mEq/L 12/26/2015 Comp Metabolic Wue033 K 4.3 mEq/L 12/26/2015 Comp Metabolic Hvw866 CL 101 mEq/L 12/26/2015 Comp Metabolic Frd965 CO2 27.0 mEq/L 12/26/2015 Comp Metabolic Kmh951 ANION GAP 13 12/26/2015 Comp Metabolic Rkv623 GLUCOSE 128 mg/dL 12/26/2015 Comp Metabolic Rmy561 Creat 0.8 mg/dL 12/26/2015 Comp Metabolic Eqz642 eGFR 104 ml/min/1.73m2 12/26/2015 Comp Metabolic Ojz467 BUN 16 mg/dL 12/26/2015 Comp Metabolic Rii945 B/C Ratio 19.5 Ratio 12/26/2015 Comp Metabolic Ahk418 CALCIUM 9.2 mg/dL 12/26/2015 Comp Metabolic Soy436 ALK PHOS 107 U/L 12/26/2015 Comp Metabolic Fnb059 AST(SGOT) 15 U/L 12/26/2015 Comp Metabolic Qsd523 ALT(SGPT) 15 U/L 12/26/2015 Comp Metabolic Ahh683 BILI T 0.4 mg/dL 12/26/2015 Comp Metabolic Wki204 ALBUMIN 4.0 g/dL 12/26/2015 Comp Metabolic Zth267 TPRO 7.6 g/dL 12/26/2015 Comp Metabolic Duq163 GLOB 3.6 g/dL 12/26/2015 Comp Metabolic Zup460 A/G Ratio 1.1 Ratio 12/26/2015 Comp Metabolic Dno581 Osmo 277 mOsmo 12/26/2015 Dilantin Ord7 DILANTIN 17.3 UG/ML 12/26/2015 Dilantin Ord7 DILANTIN 16.5 UG/ML 09/15/2015 Dilantin Ord7 DILANTIN 17.2 UG/ML 09/08/2015 Dilantin Ord7 DILANTIN 22.3 UG/ML 09/01/2015 Review of Systems System Result Effective Dates Constitutional recent illness 02/12/2018 Constitutional obesity 02/12/2018 Constitutional No chills 02/12/2018 Constitutional No diaphoresis 02/12/2018 Constitutional No fever 02/12/2018 Eyes No eye erythema 02/12/2018 Eyes No eye pain 02/12/2018 Eyes No vision change 02/12/2018 Ears/Nose/Throat/Neck No nasal discharge 02/12/2018 Cardiovascular No chest pain/pressure 02/12/2018 Cardiovascular No dyspnea 02/12/2018 Respiratory No chest congestion 02/12/2018 Respiratory No cough 02/12/2018 Gastrointestinal No abdominal pain 02/12/2018 Gastrointestinal No constipation 02/12/2018 Gastrointestinal No diarrhea 02/12/2018 Gastrointestinal No nausea 02/12/2018 Gastrointestinal No vomiting 02/12/2018 Musculoskeletal arthralgia(s) 02/12/2018 Dermatologic No rash 02/12/2018 Neurologic No alteration of consciousness 02/12/2018 Neurologic No mental status change 02/12/2018 Constitutional recent illness 01/28/2018 Constitutional chills 01/28/2018 Constitutional No diaphoresis 01/28/2018 Constitutional No fever 01/28/2018 Eyes No eye erythema 01/28/2018 Ears/Nose/Throat/Neck nasal allergies 01/28/2018 Ears/Nose/Throat/Neck nasal discharge 01/28/2018 Ears/Nose/Throat/Neck postnasal drip 01/28/2018 Ears/Nose/Throat/Neck sinus congestion 01/28/2018 Ears/Nose/Throat/Neck sore throat 01/28/2018 Cardiovascular No chest pain/pressure 01/28/2018 Cardiovascular No dyspnea 01/28/2018 Respiratory No chest congestion 01/28/2018 Respiratory cough 01/28/2018 Respiratory No dyspnea 01/28/2018 Gastrointestinal No constipation 01/28/2018 Gastrointestinal No diarrhea 01/28/2018 Gastrointestinal No nausea 01/28/2018 Gastrointestinal No vomiting 01/28/2018 Dermatologic No rash 01/28/2018 Neurologic No alteration of consciousness 01/28/2018 Neurologic No mental status change 01/28/2018 Constitutional recent illness 11/11/2017 Constitutional No chills 11/11/2017 Constitutional No diaphoresis 11/11/2017 Constitutional No fever 11/11/2017 Eyes No eye erythema 11/11/2017 Ears/Nose/Throat/Neck nasal allergies 11/11/2017 Ears/Nose/Throat/Neck nasal discharge 11/11/2017 Ears/Nose/Throat/Neck postnasal drip 11/11/2017 Ears/Nose/Throat/Neck sinus congestion 11/11/2017 Ears/Nose/Throat/Neck No sore throat 11/11/2017 Cardiovascular No chest pain/pressure 11/11/2017 Cardiovascular No dyspnea 11/11/2017 Respiratory No chest congestion 11/11/2017 Respiratory cough 11/11/2017 Respiratory No dyspnea 11/11/2017 Gastrointestinal No abdominal pain 11/11/2017 Gastrointestinal No constipation 11/11/2017 Gastrointestinal No diarrhea 11/11/2017 Gastrointestinal No nausea 11/11/2017 Gastrointestinal No vomiting 11/11/2017 Dermatologic No rash 11/11/2017 Neurologic No alteration of consciousness 11/11/2017 Neurologic No mental status change 11/11/2017 Respiratory productive sputum 11/11/2017 Constitutional No recent illness 10/17/2017 Constitutional obesity 10/17/2017 Constitutional No chills 10/17/2017 Constitutional No diaphoresis 10/17/2017 Constitutional No fever 10/17/2017 Eyes No eye erythema 10/17/2017 Eyes No eye pain 10/17/2017 Eyes No vision change 10/17/2017 Ears/Nose/Throat/Neck No nasal discharge 10/17/2017 Cardiovascular No chest pain/pressure 10/17/2017 Cardiovascular No dyspnea 10/17/2017 Respiratory No chest congestion 10/17/2017 Respiratory No cough 10/17/2017 Gastrointestinal No abdominal pain 10/17/2017 Gastrointestinal No constipation 10/17/2017 Gastrointestinal No diarrhea 10/17/2017 Gastrointestinal No nausea 10/17/2017 Gastrointestinal No vomiting 10/17/2017 Musculoskeletal arthralgia(s) 10/17/2017 Dermatologic No rash 10/17/2017 Neurologic No alteration of consciousness 10/17/2017 Neurologic No mental status change 10/17/2017 Constitutional No recent illness 06/06/2017 Constitutional obesity 06/06/2017 Constitutional No chills 06/06/2017 Constitutional No diaphoresis 06/06/2017 Constitutional No fever 06/06/2017 Eyes No eye pain 06/06/2017 Eyes No vision change 06/06/2017 Ears/Nose/Throat/Neck No nasal discharge 06/06/2017 Cardiovascular No chest pain/pressure 06/06/2017 Cardiovascular No dyspnea 06/06/2017 Respiratory No chest congestion 06/06/2017 Respiratory No cough 06/06/2017 Gastrointestinal No abdominal pain 06/06/2017 Gastrointestinal No constipation 06/06/2017 Gastrointestinal No diarrhea 06/06/2017 Gastrointestinal No nausea 06/06/2017 Gastrointestinal No vomiting 06/06/2017 Musculoskeletal arthralgia(s) 06/06/2017 Dermatologic No rash 06/06/2017 Neurologic No alteration of consciousness 06/06/2017 Neurologic No mental status change 06/06/2017 Eyes No eye erythema 06/06/2017 Constitutional No recent illness 04/11/2017 Constitutional No chills 04/11/2017 Constitutional No diaphoresis 04/11/2017 Constitutional fatigue 04/11/2017 Constitutional No fever 04/11/2017 Constitutional No malaise 04/11/2017 Constitutional weight gain 04/11/2017 Eyes No eye pain 04/11/2017 Eyes No vision change 04/11/2017 Cardiovascular No chest pain/pressure 04/11/2017 Cardiovascular No dyspnea 04/11/2017 Respiratory No chest congestion 04/11/2017 Respiratory No cough 04/11/2017 Gastrointestinal No abdominal pain 04/11/2017 Gastrointestinal No constipation 04/11/2017 Gastrointestinal No diarrhea 04/11/2017 Gastrointestinal No nausea 04/11/2017 Gastrointestinal No vomiting 04/11/2017 Musculoskeletal arthralgia(s) 04/11/2017 Dermatologic No rash 04/11/2017 Constitutional obesity 04/11/2017 Ears/Nose/Throat/Neck No nasal discharge 04/11/2017 Neurologic No alteration of consciousness 04/11/2017 Neurologic No mental status change 04/11/2017 Constitutional No recent illness 01/27/2017 Constitutional No anorexia 01/27/2017 Constitutional No night sweats 01/27/2017 Constitutional No chills 01/27/2017 Constitutional No diaphoresis 01/27/2017 Constitutional fatigue 01/27/2017 Constitutional No fever 01/27/2017 Constitutional No insomnia 01/27/2017 Constitutional No malaise 01/27/2017 Constitutional No weight loss 01/27/2017 Constitutional weight gain 01/27/2017 Constitutional obesity 01/27/2017 Eyes No eye pain 01/27/2017 Eyes No vision change 01/27/2017 Ears/Nose/Throat/Neck No dizziness 01/27/2017 Ears/Nose/Throat/Neck No headache 01/27/2017 Cardiovascular No chest pain/pressure 01/27/2017 Cardiovascular No claudication 01/27/2017 Cardiovascular No dyspnea 01/27/2017 Respiratory No aspiration 01/27/2017 Respiratory No chest congestion 01/27/2017 Respiratory No chest tightness 01/27/2017 Respiratory No cigarette smoking 01/27/2017 Respiratory No cough 01/27/2017 Gastrointestinal No abdominal pain 01/27/2017 Gastrointestinal No constipation 01/27/2017 Gastrointestinal No diarrhea 01/27/2017 Gastrointestinal No nausea 01/27/2017 Gastrointestinal No vomiting 01/27/2017 Genitourinary/Nephrology No anuria/oliguria 01/27/2017 Genitourinary/Nephrology No dysuria 01/27/2017 Genitourinary/Nephrology No flank pain 01/27/2017 Genitourinary/Nephrology No polyuria 01/27/2017 Musculoskeletal No stiffness 01/27/2017 Musculoskeletal No swelling 01/27/2017 Musculoskeletal arthralgia(s) 01/27/2017 Musculoskeletal joint complaint 01/27/2017 Dermatologic No rash 01/27/2017 Neurologic No dizziness 01/27/2017 Neurologic No memory loss 01/27/2017 Psychiatric No anxiety 01/27/2017 Psychiatric No depression 01/27/2017 Endocrine No polydipsia 01/27/2017 Endocrine No polyuria 01/27/2017 Endocrine No sweating 01/27/2017 Endocrine No weakness 01/27/2017 Hematologic/Lymphatic No abnormal ecchymoses 01/27/2017 Hematologic/Lymphatic No abnormal bleeding and bruising 01/27/2017 Allergy/Immunology No anaphylactoid reaction 01/27/2017 Allergy/Immunology No food allergy 01/27/2017 Constitutional No recent illness 12/27/2016 Constitutional No anorexia 12/27/2016 Constitutional No night sweats 12/27/2016 Constitutional No chills 12/27/2016 Constitutional No diaphoresis 12/27/2016 Constitutional fatigue 12/27/2016 Constitutional No fever 12/27/2016 Constitutional No insomnia 12/27/2016 Constitutional No malaise 12/27/2016 Constitutional No weight loss 12/27/2016 Constitutional weight gain 12/27/2016 Constitutional obesity 12/27/2016 Eyes No eye pain 12/27/2016 Eyes No vision change 12/27/2016 Ears/Nose/Throat/Neck No dizziness 12/27/2016 Ears/Nose/Throat/Neck No headache 12/27/2016 Cardiovascular No chest pain/pressure 12/27/2016 Cardiovascular No claudication 12/27/2016 Cardiovascular No dyspnea 12/27/2016 Respiratory No aspiration 12/27/2016 Respiratory No chest congestion 12/27/2016 Respiratory No chest tightness 12/27/2016 Respiratory No cigarette smoking 12/27/2016 Respiratory No cough 12/27/2016 Gastrointestinal No abdominal pain 12/27/2016 Gastrointestinal No constipation 12/27/2016 Gastrointestinal No diarrhea 12/27/2016 Gastrointestinal No nausea 12/27/2016 Gastrointestinal No vomiting 12/27/2016 Genitourinary/Nephrology No anuria/oliguria 12/27/2016 Genitourinary/Nephrology No dysuria 12/27/2016 Genitourinary/Nephrology No flank pain 12/27/2016 Genitourinary/Nephrology No polyuria 12/27/2016 Musculoskeletal No stiffness 12/27/2016 Musculoskeletal No swelling 12/27/2016 Musculoskeletal arthralgia(s) 12/27/2016 Dermatologic No rash 12/27/2016 Dermatologic sores 12/27/2016 Neurologic No dizziness 12/27/2016 Neurologic No memory loss 12/27/2016 Psychiatric No anxiety 12/27/2016 Psychiatric No depression 12/27/2016 Endocrine No polydipsia 12/27/2016 Endocrine No polyuria 12/27/2016 Endocrine No sweating 12/27/2016 Endocrine No weakness 12/27/2016 Hematologic/Lymphatic No abnormal ecchymoses 12/27/2016 Hematologic/Lymphatic No abnormal bleeding and bruising 12/27/2016 Allergy/Immunology No anaphylactoid reaction 12/27/2016 Allergy/Immunology No food allergy 12/27/2016 Musculoskeletal joint complaint 12/27/2016 Constitutional No recent illness 10/09/2016 Constitutional No chills 10/09/2016 Constitutional No diaphoresis 10/09/2016 Constitutional No fever 10/09/2016 Eyes No eye erythema 10/09/2016 Ears/Nose/Throat/Neck nasal allergies 10/09/2016 Ears/Nose/Throat/Neck nasal discharge 10/09/2016 Ears/Nose/Throat/Neck No sinus congestion 10/09/2016 Cardiovascular No chest pain/pressure 10/09/2016 Cardiovascular No dyspnea 10/09/2016 Respiratory No dyspnea 10/09/2016 Respiratory No cough 10/09/2016 Gastrointestinal No abdominal pain 10/09/2016 Dermatologic rash 10/09/2016 Neurologic No alteration of consciousness 10/09/2016 Neurologic No mental status change 10/09/2016 Constitutional No recent illness 09/09/2016 Constitutional No anorexia 09/09/2016 Constitutional No night sweats 09/09/2016 Constitutional No chills 09/09/2016 Constitutional No diaphoresis 09/09/2016 Constitutional fatigue 09/09/2016 Constitutional No fever 09/09/2016 Constitutional No insomnia 09/09/2016 Constitutional No malaise 09/09/2016 Eyes No eye pain 09/09/2016 Eyes No vision change 09/09/2016 Ears/Nose/Throat/Neck No dizziness 09/09/2016 Ears/Nose/Throat/Neck No headache 09/09/2016 Cardiovascular No chest pain/pressure 09/09/2016 Cardiovascular No claudication 09/09/2016 Cardiovascular No dyspnea 09/09/2016 Respiratory No aspiration 09/09/2016 Respiratory No chest congestion 09/09/2016 Respiratory No chest tightness 09/09/2016 Respiratory No cigarette smoking 09/09/2016 Respiratory No cough 09/09/2016 Gastrointestinal No abdominal pain 09/09/2016 Gastrointestinal No constipation 09/09/2016 Gastrointestinal No diarrhea 09/09/2016 Gastrointestinal No nausea 09/09/2016 Gastrointestinal No vomiting 09/09/2016 Genitourinary/Nephrology No anuria/oliguria 09/09/2016 Genitourinary/Nephrology No dysuria 09/09/2016 Genitourinary/Nephrology No flank pain 09/09/2016 Genitourinary/Nephrology No polyuria 09/09/2016 Musculoskeletal stiffness 09/09/2016 Musculoskeletal No swelling 09/09/2016 Musculoskeletal No arthralgia(s) 09/09/2016 Musculoskeletal back pain 09/09/2016 Musculoskeletal joint complaint 09/09/2016 Dermatologic No rash 09/09/2016 Dermatologic No sores 09/09/2016 Neurologic No dizziness 09/09/2016 Neurologic No memory loss 09/09/2016 Psychiatric No anxiety 09/09/2016 Psychiatric No depression 09/09/2016 Musculoskeletal carpal tunnel syndrome 09/09/2016 Constitutional No recent illness 05/31/2016 Constitutional No anorexia 05/31/2016 Constitutional No night sweats 05/31/2016 Constitutional No chills 05/31/2016 Constitutional No diaphoresis 05/31/2016 Constitutional No fatigue 05/31/2016 Constitutional No fever 05/31/2016 Constitutional No insomnia 05/31/2016 Constitutional No malaise 05/31/2016 Constitutional No weight loss 05/31/2016 Constitutional No weight gain 05/31/2016 Constitutional No obesity 05/31/2016 Eyes No eye pain 05/31/2016 Eyes No vision change 05/31/2016 Ears/Nose/Throat/Neck No dizziness 05/31/2016 Ears/Nose/Throat/Neck No headache 05/31/2016 Cardiovascular No chest pain/pressure 05/31/2016 Cardiovascular No claudication 05/31/2016 Cardiovascular No dyspnea 05/31/2016 Respiratory No aspiration 05/31/2016 Respiratory No chest congestion 05/31/2016 Respiratory No chest tightness 05/31/2016 Respiratory No cigarette smoking 05/31/2016 Respiratory No cough 05/31/2016 Gastrointestinal No abdominal pain 05/31/2016 Gastrointestinal No constipation 05/31/2016 Gastrointestinal No diarrhea 05/31/2016 Gastrointestinal No nausea 05/31/2016 Gastrointestinal No vomiting 05/31/2016 Genitourinary/Nephrology No anuria/oliguria 05/31/2016 Genitourinary/Nephrology No dysuria 05/31/2016 Genitourinary/Nephrology No flank pain 05/31/2016 Genitourinary/Nephrology No polyuria 05/31/2016 Musculoskeletal No stiffness 05/31/2016 Musculoskeletal No swelling 05/31/2016 Musculoskeletal No arthralgia(s) 05/31/2016 Musculoskeletal back pain 05/31/2016 Dermatologic No rash 05/31/2016 Dermatologic No sores 05/31/2016 Neurologic No dizziness 05/31/2016 Neurologic No memory loss 05/31/2016 Psychiatric No anxiety 05/31/2016 Psychiatric No depression 05/31/2016 Endocrine No polydipsia 05/31/2016 Endocrine No polyuria 05/31/2016 Endocrine No sweating 05/31/2016 Endocrine No weakness 05/31/2016 Hematologic/Lymphatic No abnormal ecchymoses 05/31/2016 Hematologic/Lymphatic No abnormal bleeding and bruising 05/31/2016 Allergy/Immunology No anaphylactoid reaction 05/31/2016 Allergy/Immunology No food allergy 05/31/2016 Musculoskeletal joint complaint 05/31/2016 Constitutional recent illness 03/29/2016 Constitutional No anorexia 03/29/2016 Constitutional No night sweats 03/29/2016 Constitutional No chills 03/29/2016 Constitutional No diaphoresis 03/29/2016 Constitutional No fatigue 03/29/2016 Constitutional No fever 03/29/2016 Constitutional No insomnia 03/29/2016 Constitutional No malaise 03/29/2016 Constitutional No weight loss 03/29/2016 Constitutional No weight gain 03/29/2016 Constitutional No obesity 03/29/2016 Eyes No eye pain 03/29/2016 Eyes No vision change 03/29/2016 Ears/Nose/Throat/Neck No dizziness 03/29/2016 Ears/Nose/Throat/Neck No headache 03/29/2016 Cardiovascular No chest pain/pressure 03/29/2016 Cardiovascular No claudication 03/29/2016 Cardiovascular No dyspnea 03/29/2016 Respiratory No chest congestion 03/29/2016 Respiratory No chest tightness 03/29/2016 Respiratory No cigarette smoking 03/29/2016 Respiratory No cough 03/29/2016 Respiratory No aspiration 03/29/2016 Gastrointestinal No constipation 03/29/2016 Gastrointestinal No diarrhea 03/29/2016 Gastrointestinal abdominal pain 03/29/2016 Gastrointestinal No nausea 03/29/2016 Gastrointestinal No vomiting 03/29/2016 Genitourinary/Nephrology No dysuria 03/29/2016 Genitourinary/Nephrology No anuria/oliguria 03/29/2016 Genitourinary/Nephrology No flank pain 03/29/2016 Genitourinary/Nephrology No polyuria 03/29/2016 Musculoskeletal No stiffness 03/29/2016 Musculoskeletal No swelling 03/29/2016 Musculoskeletal No arthralgia(s) 03/29/2016 Musculoskeletal No back pain 03/29/2016 Dermatologic No rash 03/29/2016 Dermatologic No sores 03/29/2016 Neurologic No dizziness 03/29/2016 Neurologic No memory loss 03/29/2016 Psychiatric No anxiety 03/29/2016 Psychiatric No depression 03/29/2016 Endocrine No polyuria 03/29/2016 Endocrine No polydipsia 03/29/2016 Endocrine No sweating 03/29/2016 Endocrine No weakness 03/29/2016 Hematologic/Lymphatic No abnormal ecchymoses 03/29/2016 Hematologic/Lymphatic No abnormal bleeding and bruising 03/29/2016 Allergy/Immunology No anaphylactoid reaction 03/29/2016 Allergy/Immunology No food allergy 03/29/2016 Constitutional recent illness 03/11/2016 Constitutional No anorexia 03/11/2016 Constitutional No night sweats 03/11/2016 Constitutional No chills 03/11/2016 Constitutional No diaphoresis 03/11/2016 Constitutional No fatigue 03/11/2016 Constitutional No fever 03/11/2016 Constitutional No insomnia 03/11/2016 Constitutional No malaise 03/11/2016 Constitutional No weight loss 03/11/2016 Constitutional No weight gain 03/11/2016 Eyes No vision change 03/11/2016 Eyes No eye pain 03/11/2016 Ears/Nose/Throat/Neck No dizziness 03/11/2016 Ears/Nose/Throat/Neck No headache 03/11/2016 Cardiovascular No chest pain/pressure 03/11/2016 Cardiovascular dyspnea 03/11/2016 Respiratory No chest tightness 03/11/2016 Respiratory No chest congestion 03/11/2016 Respiratory cough 03/11/2016 Gastrointestinal No constipation 03/11/2016 Gastrointestinal No diarrhea 03/11/2016 Gastrointestinal No nausea 03/11/2016 Gastrointestinal No vomiting 03/11/2016 Genitourinary/Nephrology No anuria/oliguria 03/11/2016 Genitourinary/Nephrology No dysuria 03/11/2016 Musculoskeletal No stiffness 03/11/2016 Musculoskeletal swelling 03/11/2016 Musculoskeletal No arthralgia(s) 03/11/2016 Musculoskeletal No back pain 03/11/2016 Musculoskeletal No bone fracture 03/11/2016 Musculoskeletal No bone pain 03/11/2016 Musculoskeletal No carpal tunnel syndrome 03/11/2016 Musculoskeletal No joint complaint 03/11/2016 Musculoskeletal No muscle weakness 03/11/2016 Musculoskeletal No myalgias 03/11/2016 Musculoskeletal No neck pain 03/11/2016 Musculoskeletal No sciatica 03/11/2016 Musculoskeletal No osteoporosis 03/11/2016 Musculoskeletal No shoulder pain 03/11/2016 Dermatologic No rash 03/11/2016 Dermatologic No sores 03/11/2016 Neurologic No dizziness 03/11/2016 Neurologic No mental status change 03/11/2016 Psychiatric No anxiety 03/11/2016 Psychiatric No depression 03/11/2016 Endocrine No polydipsia 03/11/2016 Endocrine No polyuria 03/11/2016 Hematologic/Lymphatic No abnormal ecchymoses 03/11/2016 Hematologic/Lymphatic No abnormal bleeding and bruising 03/11/2016 Constitutional recent illness 02/23/2016 Constitutional chills 02/23/2016 Constitutional No diaphoresis 02/23/2016 Constitutional fever 02/23/2016 Eyes No eye erythema 02/23/2016 Ears/Nose/Throat/Neck nasal allergies 02/23/2016 Ears/Nose/Throat/Neck nasal discharge 02/23/2016 Ears/Nose/Throat/Neck postnasal drip 02/23/2016 Ears/Nose/Throat/Neck sinus congestion 02/23/2016 Ears/Nose/Throat/Neck sore throat 02/23/2016 Cardiovascular No chest pain/pressure 02/23/2016 Cardiovascular No dyspnea 02/23/2016 Respiratory No chest congestion 02/23/2016 Respiratory cough 02/23/2016 Respiratory No dyspnea 02/23/2016 Gastrointestinal No constipation 02/23/2016 Gastrointestinal No diarrhea 02/23/2016 Gastrointestinal No nausea 02/23/2016 Gastrointestinal No vomiting 02/23/2016 Dermatologic No rash 02/23/2016 Neurologic No alteration of consciousness 02/23/2016 Neurologic No mental status change 02/23/2016 Constitutional No recent illness 01/16/2016 Constitutional No chills 01/16/2016 Constitutional No fatigue 01/16/2016 Constitutional No fever 01/16/2016 Constitutional No insomnia 01/16/2016 Constitutional No malaise 01/16/2016 Eyes No blindness 01/16/2016 Eyes No vision change 01/16/2016 Ears/Nose/Throat/Neck No dental pain 01/16/2016 Ears/Nose/Throat/Neck No dizziness 01/16/2016 Ears/Nose/Throat/Neck No dysphagia 01/16/2016 Ears/Nose/Throat/Neck No headache 01/16/2016 Ears/Nose/Throat/Neck No hearing loss 01/16/2016 Ears/Nose/Throat/Neck No nasal allergies 01/16/2016 Ears/Nose/Throat/Neck No sore throat 01/16/2016 Ears/Nose/Throat/Neck No postnasal drip 01/16/2016 Ears/Nose/Throat/Neck No sinus congestion 01/16/2016 Cardiovascular No chest pain/pressure 01/16/2016 Cardiovascular No dyspnea 01/16/2016 Cardiovascular No edema 01/16/2016 Cardiovascular No exercise intolerance 01/16/2016 Cardiovascular No fatigue 01/16/2016 Cardiovascular No near-syncope/dizziness 01/16/2016 Respiratory No chest tightness 01/16/2016 Respiratory No cigarette smoking 01/16/2016 Respiratory No cough 01/16/2016 Respiratory No dyspnea 01/16/2016 Respiratory No pedal edema 01/16/2016 Respiratory No snoring 01/16/2016 Respiratory No wheezing 01/16/2016 Gastrointestinal No hemorrhoids 01/16/2016 Gastrointestinal No abdominal pain 01/16/2016 Gastrointestinal No constipation 01/16/2016 Gastrointestinal No diarrhea 01/16/2016 Gastrointestinal No gastroesophageal reflux 01/16/2016 Gastrointestinal No melena 01/16/2016 Gastrointestinal No nausea 01/16/2016 Gastrointestinal No vomiting 01/16/2016 Genitourinary/Nephrology No dysuria 01/16/2016 Genitourinary/Nephrology No nocturia 01/16/2016 Genitourinary/Nephrology No urinary incontinence 01/16/2016 Musculoskeletal No stiffness 01/16/2016 Musculoskeletal No swelling 01/16/2016 Musculoskeletal No muscle weakness 01/16/2016 Musculoskeletal No myalgias 01/16/2016 Dermatologic No rash 01/16/2016 Dermatologic sores 01/16/2016 Dermatologic No scar 01/16/2016 Neurologic No dizziness 01/16/2016 Neurologic No headache 01/16/2016 Neurologic No neck pain 01/16/2016 Neurologic No syncope 01/16/2016 Psychiatric No anxiety 01/16/2016 Psychiatric No depression 01/16/2016 Constitutional No recent illness 12/26/2015 Constitutional No chills 12/26/2015 Constitutional No fatigue 12/26/2015 Constitutional No fever 12/26/2015 Constitutional No insomnia 12/26/2015 Constitutional No malaise 12/26/2015 Eyes No blindness 12/26/2015 Eyes No vision change 12/26/2015 Ears/Nose/Throat/Neck No dental pain 12/26/2015 Ears/Nose/Throat/Neck No dizziness 12/26/2015 Ears/Nose/Throat/Neck No dysphagia 12/26/2015 Ears/Nose/Throat/Neck No headache 12/26/2015 Ears/Nose/Throat/Neck No hearing loss 12/26/2015 Ears/Nose/Throat/Neck No nasal allergies 12/26/2015 Ears/Nose/Throat/Neck No sore throat 12/26/2015 Ears/Nose/Throat/Neck No postnasal drip 12/26/2015 Ears/Nose/Throat/Neck No sinus congestion 12/26/2015 Cardiovascular No chest pain/pressure 12/26/2015 Cardiovascular No dyspnea 12/26/2015 Cardiovascular No edema 12/26/2015 Cardiovascular No exercise intolerance 12/26/2015 Cardiovascular No fatigue 12/26/2015 Cardiovascular No near-syncope/dizziness 12/26/2015 Respiratory No chest tightness 12/26/2015 Respiratory No cigarette smoking 12/26/2015 Respiratory No cough 12/26/2015 Respiratory No dyspnea 12/26/2015 Respiratory No pedal edema 12/26/2015 Respiratory No snoring 12/26/2015 Respiratory No wheezing 12/26/2015 Gastrointestinal No hemorrhoids 12/26/2015 Gastrointestinal No abdominal pain 12/26/2015 Gastrointestinal No constipation 12/26/2015 Gastrointestinal No diarrhea 12/26/2015 Gastrointestinal No gastroesophageal reflux 12/26/2015 Gastrointestinal No melena 12/26/2015 Gastrointestinal No nausea 12/26/2015 Gastrointestinal No vomiting 12/26/2015 Genitourinary/Nephrology No dysuria 12/26/2015 Genitourinary/Nephrology No nocturia 12/26/2015 Genitourinary/Nephrology No urinary incontinence 12/26/2015 Musculoskeletal No stiffness 12/26/2015 Musculoskeletal No swelling 12/26/2015 Musculoskeletal No muscle weakness 12/26/2015 Musculoskeletal No myalgias 12/26/2015 Dermatologic No rash 12/26/2015 Dermatologic sores 12/26/2015 Dermatologic No scar 12/26/2015 Neurologic No dizziness 12/26/2015 Neurologic No headache 12/26/2015 Neurologic No neck pain 12/26/2015 Neurologic No syncope 12/26/2015 Psychiatric No anxiety 12/26/2015 Psychiatric No depression 12/26/2015 Constitutional recent illness 11/20/2015 Constitutional No anorexia 11/20/2015 Constitutional No night sweats 11/20/2015 Constitutional No chills 11/20/2015 Constitutional diaphoresis 11/20/2015 Constitutional No fatigue 11/20/2015 Constitutional No fever 11/20/2015 Constitutional No insomnia 11/20/2015 Constitutional No malaise 11/20/2015 Constitutional No weight gain 11/20/2015 Constitutional No weight loss 11/20/2015 Eyes No eye erythema 11/20/2015 Eyes No eye discharge 11/20/2015 Ears/Nose/Throat/Neck No dizziness 11/20/2015 Ears/Nose/Throat/Neck headache 11/20/2015 Ears/Nose/Throat/Neck nasal allergies 11/20/2015 Ears/Nose/Throat/Neck nasal discharge 11/20/2015 Ears/Nose/Throat/Neck sinus congestion 11/20/2015 Ears/Nose/Throat/Neck otalgia 11/20/2015 Ears/Nose/Throat/Neck sore throat 11/20/2015 Cardiovascular No chest pain/pressure 11/20/2015 Respiratory productive sputum 11/20/2015 Respiratory chest congestion 11/20/2015 Respiratory cough 11/20/2015 Gastrointestinal No abdominal pain 11/20/2015 Gastrointestinal No constipation 11/20/2015 Gastrointestinal No diarrhea 11/20/2015 Genitourinary/Nephrology No dysuria 11/20/2015 Musculoskeletal No joint complaint 11/20/2015 Dermatologic No sores 11/20/2015 Dermatologic No rash 11/20/2015 Neurologic No alteration of consciousness 11/20/2015 Constitutional No recent illness 09/01/2015 Constitutional No fever 09/01/2015 Eyes No eye erythema 09/01/2015 Eyes No vision change 09/01/2015 Ears/Nose/Throat/Neck nasal allergies 09/01/2015 Ears/Nose/Throat/Neck No sore throat 09/01/2015 Ears/Nose/Throat/Neck No postnasal drip 09/01/2015 Cardiovascular No chest pain/pressure 09/01/2015 Cardiovascular No dyspnea 09/01/2015 Respiratory No cough 09/01/2015 Respiratory No dyspnea 09/01/2015 Dermatologic No scar 09/01/2015 Psychiatric No anxiety 09/01/2015 Psychiatric No depression 09/01/2015 Ears/Nose/Throat/Neck No nasal discharge 09/01/2015 Ears/Nose/Throat/Neck No sinus congestion 09/01/2015 Respiratory No chest congestion 09/01/2015 Musculoskeletal No joint complaint 09/01/2015 Dermatologic rash 09/01/2015 Neurologic No alteration of consciousness 09/01/2015 Neurologic No mental status change 09/01/2015 Constitutional No recent illness 08/09/2015 Constitutional No chills 08/09/2015 Constitutional No fatigue 08/09/2015 Constitutional No fever 08/09/2015 Constitutional No insomnia 08/09/2015 Constitutional No malaise 08/09/2015 Eyes No blindness 08/09/2015 Eyes No vision change 08/09/2015 Ears/Nose/Throat/Neck No dental pain 08/09/2015 Ears/Nose/Throat/Neck No dizziness 08/09/2015 Ears/Nose/Throat/Neck No dysphagia 08/09/2015 Ears/Nose/Throat/Neck No headache 08/09/2015 Ears/Nose/Throat/Neck No hearing loss 08/09/2015 Ears/Nose/Throat/Neck No nasal allergies 08/09/2015 Ears/Nose/Throat/Neck No sore throat 08/09/2015 Ears/Nose/Throat/Neck No postnasal drip 08/09/2015 Ears/Nose/Throat/Neck No sinus congestion 08/09/2015 Cardiovascular No chest pain/pressure 08/09/2015 Cardiovascular No dyspnea 08/09/2015 Cardiovascular No edema 08/09/2015 Cardiovascular No exercise intolerance 08/09/2015 Cardiovascular No fatigue 08/09/2015 Cardiovascular No near-syncope/dizziness 08/09/2015 Respiratory No chest tightness 08/09/2015 Respiratory No cigarette smoking 08/09/2015 Respiratory No cough 08/09/2015 Respiratory No dyspnea 08/09/2015 Respiratory No pedal edema 08/09/2015 Respiratory No snoring 08/09/2015 Respiratory No wheezing 08/09/2015 Gastrointestinal hemorrhoids 08/09/2015 Gastrointestinal No abdominal pain 08/09/2015 Gastrointestinal No constipation 08/09/2015 Gastrointestinal No diarrhea 08/09/2015 Gastrointestinal No gastroesophageal reflux 08/09/2015 Gastrointestinal No melena 08/09/2015 Gastrointestinal No nausea 08/09/2015 Gastrointestinal No vomiting 08/09/2015 Genitourinary/Nephrology No dysuria 08/09/2015 Genitourinary/Nephrology No nocturia 08/09/2015 Genitourinary/Nephrology No urinary incontinence 08/09/2015 Musculoskeletal stiffness 08/09/2015 Musculoskeletal No swelling 08/09/2015 Musculoskeletal No muscle weakness 08/09/2015 Musculoskeletal No myalgias 08/09/2015 Dermatologic No rash 08/09/2015 Dermatologic sores 08/09/2015 Dermatologic No scar 08/09/2015 Neurologic No dizziness 08/09/2015 Neurologic No headache 08/09/2015 Neurologic No neck pain 08/09/2015 Neurologic No syncope 08/09/2015 Psychiatric No anxiety 08/09/2015 Psychiatric No depression 08/09/2015 Musculoskeletal back pain 08/09/2015 Constitutional No recent illness 06/26/2015 Constitutional No chills 06/26/2015 Constitutional No fatigue 06/26/2015 Constitutional No fever 06/26/2015 Constitutional No insomnia 06/26/2015 Constitutional No malaise 06/26/2015 Eyes No blindness 06/26/2015 Eyes No vision change 06/26/2015 Ears/Nose/Throat/Neck No dental pain 06/26/2015 Ears/Nose/Throat/Neck No dizziness 06/26/2015 Ears/Nose/Throat/Neck No dysphagia 06/26/2015 Ears/Nose/Throat/Neck No headache 06/26/2015 Ears/Nose/Throat/Neck No hearing loss 06/26/2015 Ears/Nose/Throat/Neck No nasal allergies 06/26/2015 Ears/Nose/Throat/Neck No sore throat 06/26/2015 Ears/Nose/Throat/Neck No postnasal drip 06/26/2015 Ears/Nose/Throat/Neck No sinus congestion 06/26/2015 Cardiovascular No chest pain/pressure 06/26/2015 Cardiovascular No dyspnea 06/26/2015 Cardiovascular No edema 06/26/2015 Cardiovascular No exercise intolerance 06/26/2015 Cardiovascular No fatigue 06/26/2015 Cardiovascular No near-syncope/dizziness 06/26/2015 Respiratory No chest tightness 06/26/2015 Respiratory No cigarette smoking 06/26/2015 Respiratory No cough 06/26/2015 Respiratory No dyspnea 06/26/2015 Respiratory No pedal edema 06/26/2015 Respiratory No snoring 06/26/2015 Respiratory No wheezing 06/26/2015 Gastrointestinal No hemorrhoids 06/26/2015 Gastrointestinal No abdominal pain 06/26/2015 Gastrointestinal No constipation 06/26/2015 Gastrointestinal No diarrhea 06/26/2015 Gastrointestinal No gastroesophageal reflux 06/26/2015 Gastrointestinal No melena 06/26/2015 Gastrointestinal No nausea 06/26/2015 Gastrointestinal No vomiting 06/26/2015 Genitourinary/Nephrology No dysuria 06/26/2015 Genitourinary/Nephrology No nocturia 06/26/2015 Genitourinary/Nephrology No urinary incontinence 06/26/2015 Musculoskeletal No stiffness 06/26/2015 Musculoskeletal No swelling 06/26/2015 Musculoskeletal No muscle weakness 06/26/2015 Musculoskeletal No myalgias 06/26/2015 Dermatologic No rash 06/26/2015 Dermatologic sores 06/26/2015 Dermatologic No scar 06/26/2015 Neurologic No dizziness 06/26/2015 Neurologic No headache 06/26/2015 Neurologic No neck pain 06/26/2015 Neurologic No syncope 06/26/2015 Psychiatric No anxiety 06/26/2015 Psychiatric No depression 06/26/2015 Gastrointestinal No abdominal pain 11/18/2014 Gastrointestinal No constipation 11/18/2014 Gastrointestinal No diarrhea 11/18/2014 Gastrointestinal No nausea 11/18/2014 Gastrointestinal No vomiting 11/18/2014 Constitutional recent illness 11/18/2014 Constitutional No anorexia 11/18/2014 Constitutional No night sweats 11/18/2014 Constitutional No chills 11/18/2014 Constitutional No diaphoresis 11/18/2014 Constitutional No fatigue 11/18/2014 Constitutional No fever 11/18/2014 Constitutional No insomnia 11/18/2014 Constitutional No malaise 11/18/2014 Constitutional No weight loss 11/18/2014 Constitutional No weight gain 11/18/2014 Eyes No eye discharge 11/18/2014 Eyes No eye erythema 11/18/2014 Ears/Nose/Throat/Neck No dizziness 11/18/2014 Ears/Nose/Throat/Neck No headache 11/18/2014 Cardiovascular No chest pain/pressure 11/18/2014 Cardiovascular No dyspnea 11/18/2014 Cardiovascular No edema 11/18/2014 Respiratory No productive sputum 11/18/2014 Respiratory No chest congestion 11/18/2014 Respiratory No cough 11/18/2014 Genitourinary/Nephrology No dysuria 11/18/2014 Musculoskeletal No joint complaint 11/18/2014 Dermatologic No rash 11/18/2014 Dermatologic No sores 11/18/2014 Neurologic No alteration of consciousness 11/18/2014 Constitutional recent illness 11/01/2014 Constitutional No anorexia 11/01/2014 Constitutional No night sweats 11/01/2014 Constitutional No chills 11/01/2014 Constitutional No diaphoresis 11/01/2014 Constitutional fatigue 11/01/2014 Constitutional No insomnia 11/01/2014 Constitutional No malaise 11/01/2014 Constitutional weight loss 11/01/2014 Eyes No eye discharge 11/01/2014 Eyes No eye erythema 11/01/2014 Ears/Nose/Throat/Neck No dizziness 11/01/2014 Ears/Nose/Throat/Neck No headache 11/01/2014 Cardiovascular No chest pain/pressure 11/01/2014 Cardiovascular No dyspnea 11/01/2014 Cardiovascular No edema 11/01/2014 Respiratory No productive sputum 11/01/2014 Respiratory No chest congestion 11/01/2014 Respiratory No cough 11/01/2014 Gastrointestinal abdominal pain 11/01/2014 Gastrointestinal No constipation 11/01/2014 Gastrointestinal No diarrhea 11/01/2014 Gastrointestinal No nausea 11/01/2014 Gastrointestinal No vomiting 11/01/2014 Genitourinary/Nephrology No dysuria 11/01/2014 Musculoskeletal No joint complaint 11/01/2014 Dermatologic No rash 11/01/2014 Dermatologic No sores 11/01/2014 Neurologic No alteration of consciousness 11/01/2014 Psychiatric No anxiety 11/01/2014 Psychiatric No depression 11/01/2014 Constitutional No chills 10/27/2014 Constitutional No diaphoresis 10/27/2014 Constitutional No fever 10/27/2014 Constitutional No fatigue 10/27/2014 Constitutional weight loss 10/27/2014 Ears/Nose/Throat/Neck No headache 10/27/2014 Ears/Nose/Throat/Neck No nasal allergies 10/27/2014 Ears/Nose/Throat/Neck No otitis media 10/27/2014 Ears/Nose/Throat/Neck No postnasal drip 10/27/2014 Ears/Nose/Throat/Neck No sinus congestion 10/27/2014 Ears/Nose/Throat/Neck No dizziness 10/27/2014 Cardiovascular No chest pain/pressure 10/27/2014 Cardiovascular No fatigue 10/27/2014 Cardiovascular No edema 10/27/2014 Cardiovascular No dyspnea 10/27/2014 Respiratory No chest congestion 10/27/2014 Respiratory No cigarette smoking 10/27/2014 Respiratory No cough 10/27/2014 Respiratory No productive sputum 10/27/2014 Gastrointestinal diarrhea 10/27/2014 Gastrointestinal No abdominal pain 10/27/2014 Gastrointestinal No nausea 10/27/2014 Gastrointestinal No vomiting 10/27/2014 Genitourinary/Nephrology No dysuria 10/27/2014 Genitourinary/Nephrology urinary retention/hesitancy 10/27/2014 Musculoskeletal swelling 10/27/2014 Musculoskeletal joint complaint 10/27/2014 Musculoskeletal arthralgia(s) 10/27/2014 Dermatologic No sores 10/27/2014 Eyes No vision change 10/27/2014 Eyes No eye discharge 10/27/2014 Psychiatric No depression 10/27/2014 Psychiatric No anxiety 10/27/2014 Dermatologic rash 10/27/2014 Constitutional No recent illness 2014 Constitutional No chills 2014 Constitutional No fatigue 2014 Constitutional No fever 2014 Constitutional No insomnia 2014 Constitutional No malaise 2014 Eyes No blindness 2014 Eyes No vision change 2014 Ears/Nose/Throat/Neck No dental pain 2014 Ears/Nose/Throat/Neck No dizziness 2014 Ears/Nose/Throat/Neck No dysphagia 2014 Ears/Nose/Throat/Neck No headache 2014 Ears/Nose/Throat/Neck No hearing loss 2014 Ears/Nose/Throat/Neck No nasal allergies 2014 Ears/Nose/Throat/Neck No sore throat 2014 Ears/Nose/Throat/Neck No postnasal drip 2014 Ears/Nose/Throat/Neck No sinus congestion 2014 Cardiovascular No chest pain/pressure 2014 Cardiovascular No dyspnea 2014 Cardiovascular No edema 2014 Cardiovascular No exercise intolerance 2014 Cardiovascular No fatigue 2014 Cardiovascular No near-syncope/dizziness 2014 Respiratory No chest tightness 2014 Respiratory No cigarette smoking 2014 Respiratory No cough 2014 Respiratory No dyspnea 2014 Respiratory No pedal edema 2014 Respiratory No snoring 2014 Respiratory No wheezing 2014 Gastrointestinal No hemorrhoids 2014 Gastrointestinal No abdominal pain 2014 Gastrointestinal No constipation 2014 Gastrointestinal No diarrhea 2014 Gastrointestinal No gastroesophageal reflux 2014 Gastrointestinal No melena 2014 Gastrointestinal No nausea 2014 Gastrointestinal No vomiting 2014 Genitourinary/Nephrology No dysuria 2014 Genitourinary/Nephrology No nocturia 2014 Genitourinary/Nephrology No urinary incontinence 2014 Musculoskeletal No stiffness 2014 Musculoskeletal No swelling 2014 Musculoskeletal No muscle weakness 2014 Musculoskeletal No myalgias 2014 Dermatologic No rash 2014 Dermatologic sores 2014 Dermatologic No scar 2014 Neurologic No dizziness 2014 Neurologic No headache 2014 Neurologic No neck pain 2014 Neurologic No syncope 2014 Psychiatric No anxiety 2014 Psychiatric No depression 2014 Endocrine obesity 2014 Endocrine weight gain 2014 Cardiovascular hypertension 2014 Constitutional No recent illness 05/05/2014 Constitutional No anorexia 05/05/2014 Constitutional No night sweats 05/05/2014 Constitutional No chills 05/05/2014 Constitutional No diaphoresis 05/05/2014 Constitutional No fever 05/05/2014 Constitutional No fatigue 05/05/2014 Constitutional No insomnia 05/05/2014 Constitutional No malaise 05/05/2014 Constitutional No weight loss 05/05/2014 Constitutional No weight gain 05/05/2014 Gastrointestinal No constipation 05/05/2014 Gastrointestinal No diarrhea 05/05/2014 Genitourinary/Nephrology No dysuria 05/05/2014 Genitourinary/Nephrology hematuria 05/05/2014 Musculoskeletal No joint complaint 05/05/2014 Eyes No eye discharge 05/05/2014 Eyes No eye erythema 05/05/2014 Ears/Nose/Throat/Neck No dysphagia 05/05/2014 Cardiovascular No chest pain/pressure 05/05/2014 Cardiovascular No dyspnea 05/05/2014 Cardiovascular No edema 05/05/2014 Dermatologic No rash 05/05/2014 Dermatologic No sores 05/05/2014 Constitutional No recent illness 04/26/2014 Constitutional No chills 04/26/2014 Constitutional No fatigue 04/26/2014 Constitutional No fever 04/26/2014 Constitutional No insomnia 04/26/2014 Constitutional No malaise 04/26/2014 Eyes No blindness 04/26/2014 Eyes No vision change 04/26/2014 Ears/Nose/Throat/Neck No dental pain 04/26/2014 Ears/Nose/Throat/Neck No dizziness 04/26/2014 Ears/Nose/Throat/Neck No dysphagia 04/26/2014 Ears/Nose/Throat/Neck No headache 04/26/2014 Ears/Nose/Throat/Neck No hearing loss 04/26/2014 Ears/Nose/Throat/Neck No nasal allergies 04/26/2014 Ears/Nose/Throat/Neck No sore throat 04/26/2014 Ears/Nose/Throat/Neck No postnasal drip 04/26/2014 Ears/Nose/Throat/Neck No sinus congestion 04/26/2014 Cardiovascular No chest pain/pressure 04/26/2014 Cardiovascular No dyspnea 04/26/2014 Cardiovascular No edema 04/26/2014 Cardiovascular No exercise intolerance 04/26/2014 Cardiovascular No fatigue 04/26/2014 Cardiovascular No near-syncope/dizziness 04/26/2014 Respiratory No chest tightness 04/26/2014 Respiratory No cigarette smoking 04/26/2014 Respiratory No cough 04/26/2014 Respiratory No dyspnea 04/26/2014 Respiratory No pedal edema 04/26/2014 Respiratory No snoring 04/26/2014 Respiratory No wheezing 04/26/2014 Gastrointestinal No hemorrhoids 04/26/2014 Gastrointestinal No abdominal pain 04/26/2014 Gastrointestinal No constipation 04/26/2014 Gastrointestinal No diarrhea 04/26/2014 Gastrointestinal No gastroesophageal reflux 04/26/2014 Gastrointestinal No melena 04/26/2014 Gastrointestinal No nausea 04/26/2014 Gastrointestinal No vomiting 04/26/2014 Genitourinary/Nephrology No dysuria 04/26/2014 Genitourinary/Nephrology No nocturia 04/26/2014 Genitourinary/Nephrology No urinary incontinence 04/26/2014 Musculoskeletal No stiffness 04/26/2014 Musculoskeletal No swelling 04/26/2014 Musculoskeletal No muscle weakness 04/26/2014 Musculoskeletal No myalgias 04/26/2014 Dermatologic No rash 04/26/2014 Dermatologic sores 04/26/2014 Dermatologic No scar 04/26/2014 Neurologic No dizziness 04/26/2014 Neurologic No headache 04/26/2014 Neurologic No neck pain 04/26/2014 Neurologic No syncope 04/26/2014 Psychiatric No anxiety 04/26/2014 Psychiatric No depression 04/26/2014 Constitutional No recent illness 03/29/2014 Constitutional No chills 03/29/2014 Constitutional No fatigue 03/29/2014 Constitutional No fever 03/29/2014 Constitutional No insomnia 03/29/2014 Constitutional No malaise 03/29/2014 Eyes No blindness 03/29/2014 Eyes No vision change 03/29/2014 Psychiatric No anxiety 03/29/2014 Psychiatric No depression 03/29/2014 Neurologic No dizziness 03/29/2014 Neurologic No headache 03/29/2014 Neurologic No neck pain 03/29/2014 Neurologic No syncope 03/29/2014 Dermatologic No rash 03/29/2014 Dermatologic No scar 03/29/2014 Dermatologic sores 03/29/2014 Musculoskeletal No stiffness 03/29/2014 Musculoskeletal No swelling 03/29/2014 Musculoskeletal No muscle weakness 03/29/2014 Musculoskeletal No myalgias 03/29/2014 Genitourinary/Nephrology No dysuria 03/29/2014 Genitourinary/Nephrology No nocturia 03/29/2014 Genitourinary/Nephrology No urinary incontinence 03/29/2014 Gastrointestinal No hemorrhoids 03/29/2014 Gastrointestinal No abdominal pain 03/29/2014 Gastrointestinal No constipation 03/29/2014 Gastrointestinal No diarrhea 03/29/2014 Gastrointestinal No gastroesophageal reflux 03/29/2014 Gastrointestinal No melena 03/29/2014 Gastrointestinal No nausea 03/29/2014 Gastrointestinal No vomiting 03/29/2014 Respiratory No chest tightness 03/29/2014 Respiratory No cigarette smoking 03/29/2014 Respiratory No cough 03/29/2014 Respiratory No dyspnea 03/29/2014 Respiratory No pedal edema 03/29/2014 Respiratory No snoring 03/29/2014 Respiratory No wheezing 03/29/2014 Cardiovascular No chest pain/pressure 03/29/2014 Cardiovascular No dyspnea 03/29/2014 Cardiovascular No edema 03/29/2014 Cardiovascular No exercise intolerance 03/29/2014 Cardiovascular No fatigue 03/29/2014 Cardiovascular No near-syncope/dizziness 03/29/2014 Ears/Nose/Throat/Neck No dental pain 03/29/2014 Ears/Nose/Throat/Neck No dizziness 03/29/2014 Ears/Nose/Throat/Neck No dysphagia 03/29/2014 Ears/Nose/Throat/Neck No headache 03/29/2014 Ears/Nose/Throat/Neck No hearing loss 03/29/2014 Ears/Nose/Throat/Neck No nasal allergies 03/29/2014 Ears/Nose/Throat/Neck No sore throat 03/29/2014 Ears/Nose/Throat/Neck No postnasal drip 03/29/2014 Ears/Nose/Throat/Neck No sinus congestion 03/29/2014 Physical Exam Exam Name System Name Item Name Status Result Effective Dates Notes Full Exam - General 1994 Constitutional general appearance Overall: well developed 02/12/2018 None Full Exam - General 1994 Constitutional general appearance Overall: in no acute distress 02/12/2018 None Full Exam - General 1994 Constitutional general appearance Overall: well nourished 02/12/2018 None Full Exam - General 1994 Eyes conjunctiva/eyelids Overall: conjunctiva clear 02/12/2018 None Full Exam - General 1994 Eyes conjunctiva/eyelids Overall: cornea clear 02/12/2018 None Full Exam - General 1994 Eyes conjunctiva/eyelids Overall: eyelids normal 02/12/2018 None Full Exam - General 1994 Eyes pupils and irises Overall: pupils equal, round, reactive to light and accomodation 02/12/2018 None Full Exam - General 1994 Ears/Nose/Throat otoscopic exam Overall: external auditory canals clear 02/12/2018 None Full Exam - General 1994 Ears/Nose/Throat otoscopic exam Overall: tympanic membranes clear 02/12/2018 None Full Exam - General 1994 Ears/Nose/Throat lips/teeth/gingiva Overall: benign lips 02/12/2018 None Full Exam - General 1994 Ears/Nose/Throat oral cavity/pharynx/larynx Overall: oral mucosa clear 02/12/2018 None Full Exam - General 1994 Respiratory auscultation Overall: breath sounds clear bilaterally 02/12/2018 None Full Exam - General 1994 Respiratory respiratory effort/rhythm Overall: no retractions 02/12/2018 None Full Exam - General 1994 Respiratory respiratory effort/rhythm Overall: normal rate 02/12/2018 None Full Exam - General 1994 Cardiovascular auscultation of heart Overall: regular rate 02/12/2018 None Full Exam - General 1994 Cardiovascular auscultation of heart Overall: normal heart sounds 02/12/2018 None Full Exam - General 1994 Abdomen abdominal exam Overall: no tenderness 02/12/2018 None Full Exam - General 1994 Abdomen abdominal exam Overall: normal bowel sounds 02/12/2018 None Full Exam - General 1994 Abdomen abdominal exam Contour: protuberant 02/12/2018 None Full Exam - General 1994 Musculoskeletal head and neck Overall: head atraumatic 02/12/2018 None Full Exam - General 1994 Neurologic cranial nerves Overall: crainial nerves 2 - 12 grossly intact 02/12/2018 None Full Exam - General 1994 Psychiatric orientation/consciousness Overall: oriented to person, place and time 02/12/2018 None Full Exam - General 1994 Psychiatric mood and affect Overall: normal mood and affect 02/12/2018 None Full Exam - General 1994 Psychiatric appearance Overall: well-groomed, good eye contact 02/12/2018 None Full Exam - General 1994 Ears/Nose/Throat oral cavity/pharynx/larynx Posterior Pharynx: clear post nasal drainage 02/12/2018 None Full Exam - ENT Constitutional general appearance Overall: well nourished 01/28/2018 None Full Exam - ENT Constitutional general appearance Overall: well developed 01/28/2018 None Full Exam - ENT Constitutional general appearance Overall: in no acute distress 01/28/2018 None Full Exam - ENT Ears/Nose/Throat otoscopic exam Overall: external auditory canals normal 01/28/2018 None Full Exam - ENT Ears/Nose/Throat otoscopic exam Left tympanic membrane: air-fluid level 01/28/2018 None Full Exam - ENT Ears/Nose/Throat otoscopic exam Right tympanic membrane: air-fluid level 01/28/2018 None Full Exam - ENT Ears/Nose/Throat lips/teeth/gingiva Overall: benign lips 01/28/2018 None Full Exam - ENT Ears/Nose/Throat oropharynx Overall: oral mucosa clear 01/28/2018 None Full Exam - ENT Ears/Nose/Throat oropharynx Posterior Pharynx: clear post nasal drainage 01/28/2018 None Full Exam - ENT Ears/Nose/Throat oropharynx Posterior Pharynx: erythema 01/28/2018 None Full Exam - ENT Respiratory inspection Overall: no retractions 01/28/2018 None Full Exam - ENT Respiratory inspection Overall: normal rate 01/28/2018 None Full Exam - ENT Respiratory auscultation Overall: breath sounds clear bilaterally 01/28/2018 None Full Exam - ENT Cardiovascular auscultation of heart Rate: normal rate 01/28/2018 None Full Exam - ENT Cardiovascular auscultation of heart Rhythm: regular rhythm 01/28/2018 None Full Exam - ENT Lymphatic palpation of lymph nodes Overall: anterior cervical chain benign 01/28/2018 None Full Exam - ENT Lymphatic palpation of lymph nodes Overall: posterior cervical chain benign 01/28/2018 None Full Exam - ENT Neurologic mood and affect Overall: normal mood 01/28/2018 None Full Exam - ENT Neurologic mood and affect Overall: normal affect 01/28/2018 None Full Exam - ENT Neurologic orientation Overall: oriented to person, place and time 01/28/2018 None Full Exam - ENT Constitutional general appearance Overall: well nourished 11/11/2017 None Full Exam - ENT Constitutional general appearance Overall: well developed 11/11/2017 None Full Exam - ENT Constitutional general appearance Overall: in no acute distress 11/11/2017 None Full Exam - ENT Ears/Nose/Throat otoscopic exam Overall: external auditory canals normal 11/11/2017 None Full Exam - ENT Ears/Nose/Throat otoscopic exam Right tympanic membrane: air-fluid level 11/11/2017 None Full Exam - ENT Ears/Nose/Throat nasal mucosa, septum, turbinates Drainage: clear 11/11/2017 None Full Exam - ENT Ears/Nose/Throat nasal mucosa, septum, turbinates Drainage: yellow 11/11/2017 None Full Exam - ENT Ears/Nose/Throat lips/teeth/gingiva Overall: benign lips 11/11/2017 None Full Exam - ENT Ears/Nose/Throat oropharynx Posterior Pharynx: clear post nasal drainage 11/11/2017 None Full Exam - ENT Face and Head palpation Left maxillary sinus: tender 11/11/2017 None Full Exam - ENT Face and Head palpation Right maxillary sinus: tender 11/11/2017 None Full Exam - ENT Respiratory inspection Overall: no retractions 11/11/2017 None Full Exam - ENT Respiratory inspection Overall: normal rate 11/11/2017 None Full Exam - ENT Cardiovascular auscultation of heart Overall: regular rate 11/11/2017 None Full Exam - ENT Cardiovascular auscultation of heart Overall: normal heart sounds 11/11/2017 None Full Exam - ENT Lymphatic palpation of lymph nodes Overall: anterior cervical chain benign 11/11/2017 None Full Exam - ENT Lymphatic palpation of lymph nodes Overall: posterior cervical chain benign 11/11/2017 None Full Exam - ENT Neurologic mood and affect Overall: normal mood 11/11/2017 None Full Exam - ENT Neurologic mood and affect Overall: normal affect 11/11/2017 None Full Exam - ENT Neurologic orientation Overall: oriented to person, place and time 11/11/2017 None Full Exam - ENT Respiratory auscultation Diffuse: diminished 11/11/2017 None Full Exam - ENT Respiratory auscultation Right lower lung field: expiratory wheezes 11/11/2017 None Full Exam - ENT Respiratory auscultation Left lower lung field: expiratory wheezes 11/11/2017 None Full Exam - ENT Ears/Nose/Throat otoscopic exam Left tympanic membrane: erythematous 11/11/2017 None Full Exam - General 1994 Constitutional general appearance Overall: well developed 10/17/2017 None Full Exam - General 1994 Constitutional general appearance Overall: in no acute distress 10/17/2017 None Full Exam - General 1994 Constitutional general appearance Overall: well nourished 10/17/2017 None Full Exam - General 1994 Eyes conjunctiva/eyelids Overall: conjunctiva clear 10/17/2017 None Full Exam - General 1994 Eyes conjunctiva/eyelids Overall: cornea clear 10/17/2017 None Full Exam - General 1994 Eyes conjunctiva/eyelids Overall: eyelids normal 10/17/2017 None Full Exam - General 1994 Eyes pupils and irises Overall: pupils equal, round, reactive to light and accomodation 10/17/2017 None Full Exam - General 1994 Ears/Nose/Throat otoscopic exam Overall: external auditory canals clear 10/17/2017 None Full Exam - General 1994 Ears/Nose/Throat otoscopic exam Overall: tympanic membranes clear 10/17/2017 None Full Exam - General 1994 Ears/Nose/Throat lips/teeth/gingiva Overall: benign lips 10/17/2017 None Full Exam - General 1994 Ears/Nose/Throat oral cavity/pharynx/larynx Overall: oral mucosa clear 10/17/2017 None Full Exam - General 1994 Respiratory auscultation Overall: breath sounds clear bilaterally 10/17/2017 None Full Exam - General 1994 Respiratory respiratory effort/rhythm Overall: no retractions 10/17/2017 None Full Exam - General 1994 Respiratory respiratory effort/rhythm Overall: normal rate 10/17/2017 None Full Exam - General 1994 Cardiovascular auscultation of heart Overall: regular rate 10/17/2017 None Full Exam - General 1994 Cardiovascular auscultation of heart Overall: normal heart sounds 10/17/2017 None Full Exam - General 1994 Abdomen abdominal exam Overall: no tenderness 10/17/2017 None Full Exam - General 1994 Abdomen abdominal exam Overall: normal bowel sounds 10/17/2017 None Full Exam - General 1994 Abdomen abdominal exam Contour: protuberant 10/17/2017 None Full Exam - General 1994 Musculoskeletal head and neck Overall: head atraumatic 10/17/2017 None Full Exam - General 1994 Neurologic cranial nerves Overall: crainial nerves 2 - 12 grossly intact 10/17/2017 None Full Exam - General 1994 Psychiatric orientation/consciousness Overall: oriented to person, place and time 10/17/2017 None Full Exam - General 1994 Psychiatric mood and affect Overall: normal mood and affect 10/17/2017 None Full Exam - General 1994 Psychiatric appearance Overall: well-groomed, good eye contact 10/17/2017 None Full Exam - General 1994 Constitutional general appearance Overall: well developed 06/06/2017 None Full Exam - General 1994 Constitutional general appearance Overall: in no acute distress 06/06/2017 None Full Exam - General 1994 Constitutional general appearance Overall: well nourished 06/06/2017 None Full Exam - General 1994 Eyes conjunctiva/eyelids Overall: conjunctiva clear 06/06/2017 None Full Exam - General 1994 Eyes conjunctiva/eyelids Overall: cornea clear 06/06/2017 None Full Exam - General 1994 Eyes conjunctiva/eyelids Overall: eyelids normal 06/06/2017 None Full Exam - General 1994 Eyes pupils and irises Overall: pupils equal, round, reactive to light and accomodation 06/06/2017 None Full Exam - General 1994 Ears/Nose/Throat lips/teeth/gingiva Overall: benign lips 06/06/2017 None Full Exam - General 1994 Ears/Nose/Throat oral cavity/pharynx/larynx Overall: oral mucosa clear 06/06/2017 None Full Exam - General 1994 Respiratory auscultation Overall: breath sounds clear bilaterally 06/06/2017 None Full Exam - General 1994 Respiratory respiratory effort/rhythm Overall: no retractions 06/06/2017 None Full Exam - General 1994 Respiratory respiratory effort/rhythm Overall: normal rate 06/06/2017 None Full Exam - General 1994 Cardiovascular auscultation of heart Overall: regular rate 06/06/2017 None Full Exam - General 1994 Cardiovascular auscultation of heart Overall: normal heart sounds 06/06/2017 None Full Exam - General 1994 Abdomen abdominal exam Overall: normal bowel sounds 06/06/2017 None Full Exam - General 1994 Abdomen abdominal exam Contour: protuberant 06/06/2017 None Full Exam - General 1994 Musculoskeletal head and neck Overall: head atraumatic 06/06/2017 None Full Exam - General 1994 Neurologic cranial nerves Overall: crainial nerves 2 - 12 grossly intact 06/06/2017 None Full Exam - General 1994 Psychiatric orientation/consciousness Overall: oriented to person, place and time 06/06/2017 None Full Exam - General 1994 Psychiatric mood and affect Overall: normal mood and affect 06/06/2017 None Full Exam - General 1994 Psychiatric appearance Overall: well-groomed, good eye contact 06/06/2017 None Full Exam - General 1994 Ears/Nose/Throat otoscopic exam Overall: external auditory canals clear 06/06/2017 None Full Exam - General 1994 Ears/Nose/Throat otoscopic exam Overall: tympanic membranes clear 06/06/2017 None Full Exam - General 1994 Abdomen abdominal exam Overall: no tenderness 06/06/2017 None Full Exam - General 1994 Eyes conjunctiva/eyelids Overall: conjunctiva clear 04/11/2017 None Full Exam - General 1994 Eyes conjunctiva/eyelids Overall: cornea clear 04/11/2017 None Full Exam - General 1994 Eyes conjunctiva/eyelids Overall: eyelids normal 04/11/2017 None Full Exam - General 1994 Eyes pupils and irises Overall: pupils equal, round, reactive to light and accomodation 04/11/2017 None Full Exam - General 1994 Ears/Nose/Throat lips/teeth/gingiva Overall: benign lips 04/11/2017 None Full Exam - General 1994 Ears/Nose/Throat oral cavity/pharynx/larynx Overall: oral mucosa clear 04/11/2017 None Full Exam - General 1994 Respiratory auscultation Overall: breath sounds clear bilaterally 04/11/2017 None Full Exam - General 1994 Respiratory respiratory effort/rhythm Overall: no retractions 04/11/2017 None Full Exam - General 1994 Respiratory respiratory effort/rhythm Overall: normal rate 04/11/2017 None Full Exam - General 1994 Cardiovascular auscultation of heart Overall: regular rate 04/11/2017 None Full Exam - General 1994 Cardiovascular auscultation of heart Overall: normal heart sounds 04/11/2017 None Full Exam - General 1994 Abdomen abdominal exam Overall: normal bowel sounds 04/11/2017 None Full Exam - General 1994 Abdomen abdominal exam Contour: protuberant 04/11/2017 None Full Exam - General 1994 Psychiatric orientation/consciousness Overall: oriented to person, place and time 04/11/2017 None Full Exam - General 1994 Constitutional general appearance Overall: well developed 04/11/2017 None Full Exam - General 1994 Constitutional general appearance Overall: in no acute distress 04/11/2017 None Full Exam - General 1994 Constitutional general appearance Overall: well nourished 04/11/2017 None Full Exam - General 1994 Musculoskeletal head and neck Overall: head atraumatic 04/11/2017 None Full Exam - General 1994 Neurologic cranial nerves Overall: crainial nerves 2 - 12 grossly intact 04/11/2017 None Full Exam - General 1994 Psychiatric mood and affect Overall: normal mood and affect 04/11/2017 None Full Exam - General 1994 Psychiatric appearance Overall: well-groomed, good eye contact 04/11/2017 None Full Exam - General 1994 Constitutional general appearance Development: well developed 01/27/2017 None Full Exam - General 1994 Constitutional general appearance Development: appears stated age 1201/27/2017 None Full Exam - General 1994 Eyes conjunctiva/eyelids Overall: conjunctiva clear 01/27/2017 None Full Exam - General 1994 Eyes conjunctiva/eyelids Overall: cornea clear 01/27/2017 None Full Exam - General 1994 Eyes conjunctiva/eyelids Overall: eyelids normal 01/27/2017 None Full Exam - General 1994 Eyes pupils and irises Overall: pupils equal, round, reactive to light and accomodation 01/27/2017 None Full Exam - General 1994 Ears/Nose/Throat lips/teeth/gingiva Overall: benign lips 01/27/2017 None Full Exam - General 1994 Ears/Nose/Throat lips/teeth/gingiva Overall: normal dentition 01/27/2017 None Full Exam - General 1994 Ears/Nose/Throat oral cavity/pharynx/larynx Overall: oral mucosa clear 01/27/2017 None Full Exam - General 1994 Neck inspection of neck Overall: normal size 01/27/2017 None Full Exam - General 1994 Neck inspection of neck Overall: normal appearance 01/27/2017 None Full Exam - General 1994 Neck inspection of neck Overall: no masses 01/27/2017 None Full Exam - General 1994 Respiratory auscultation Overall: breath sounds clear bilaterally 01/27/2017 None Full Exam - General 1994 Respiratory respiratory effort/rhythm Overall: no retractions 01/27/2017 None Full Exam - General 1994 Respiratory respiratory effort/rhythm Overall: normal rate 01/27/2017 None Full Exam - General 1994 Cardiovascular auscultation of heart Overall: regular rate 01/27/2017 None Full Exam - General 1994 Cardiovascular auscultation of heart Overall: normal heart sounds 01/27/2017 None Full Exam - General 1994 Cardiovascular auscultation of heart Overall: no murmurs 01/27/2017 None Full Exam - General 1994 Abdomen abdominal exam Overall: normal bowel sounds 01/27/2017 None Full Exam - General 1994 Abdomen abdominal exam Contour: protuberant 01/27/2017 None Full Exam - General 1994 Lymphatic neck nodes Overall: anterior cervical chain benign 01/27/2017 None Full Exam - General 1994 Lymphatic neck nodes Overall: posterior cervical chain benign 01/27/2017 None Full Exam - General 1994 Psychiatric orientation/consciousness Overall: oriented to person, place and time 01/27/2017 None Full Exam - General 1994 Constitutional general appearance Development: well developed 12/27/2016 None Full Exam - General 1994 Constitutional general appearance Development: appears stated age 1112/27/2016 None Full Exam - General 1994 Eyes conjunctiva/eyelids Overall: conjunctiva clear 12/27/2016 None Full Exam - General 1994 Eyes conjunctiva/eyelids Overall: cornea clear 12/27/2016 None Full Exam - General 1994 Eyes conjunctiva/eyelids Overall: eyelids normal 12/27/2016 None Full Exam - General 1994 Eyes pupils and irises Overall: pupils equal, round, reactive to light and accomodation 12/27/2016 None Full Exam - General 1994 Ears/Nose/Throat otoscopic exam Overall: external auditory canals clear 12/27/2016 None Full Exam - General 1994 Ears/Nose/Throat otoscopic exam Overall: tympanic membranes clear 12/27/2016 None Full Exam - General 1994 Ears/Nose/Throat lips/teeth/gingiva Overall: benign lips 12/27/2016 None Full Exam - General 1994 Ears/Nose/Throat lips/teeth/gingiva Overall: normal dentition 12/27/2016 None Full Exam - General 1994 Ears/Nose/Throat oral cavity/pharynx/larynx Overall: oral mucosa clear 12/27/2016 None Full Exam - General 1994 Neck inspection of neck Overall: normal size 12/27/2016 None Full Exam - General 1994 Neck inspection of neck Overall: normal appearance 12/27/2016 None Full Exam - General 1994 Neck inspection of neck Overall: no masses 12/27/2016 None Full Exam - General 1994 Respiratory auscultation Overall: breath sounds clear bilaterally 12/27/2016 None Full Exam - General 1994 Respiratory respiratory effort/rhythm Overall: no retractions 12/27/2016 None Full Exam - General 1994 Respiratory respiratory effort/rhythm Overall: normal rate 12/27/2016 None Full Exam - General 1994 Cardiovascular extremities Edema present: non-pitting 12/27/2016 None Full Exam - General 1994 Cardiovascular extremities Edema present: severity 1+ - 4+: 1+ 12/27/2016 None Full Exam - General 1994 Cardiovascular extremities Edema present: bilateral 12/27/2016 None Full Exam - General 1994 Cardiovascular auscultation of heart Overall: regular rate 12/27/2016 None Full Exam - General 1994 Cardiovascular auscultation of heart Overall: normal heart sounds 12/27/2016 None Full Exam - General 1994 Cardiovascular auscultation of heart Overall: no murmurs 12/27/2016 None Full Exam - General 1994 Abdomen abdominal exam Overall: normal bowel sounds 12/27/2016 None Full Exam - General 1994 Abdomen abdominal exam Contour: protuberant 12/27/2016 None Full Exam - General 1994 Lymphatic neck nodes Overall: anterior cervical chain benign 12/27/2016 None Full Exam - General 1994 Lymphatic neck nodes Overall: posterior cervical chain benign 12/27/2016 None Full Exam - General 1994 Psychiatric orientation/consciousness Overall: oriented to person, place and time 12/27/2016 None Full Exam - Dermatology Constitutional general appearance Overall: well nourished 10/09/2016 None Full Exam - Dermatology Constitutional general appearance Overall: well developed 10/09/2016 None Full Exam - Dermatology Constitutional general appearance Overall: in no acute distress 10/09/2016 None Full Exam - Dermatology Eyes conjunctiva/eyelids Overall: clear conjunctiva bilaterally 10/09/2016 None Full Exam - Dermatology Eyes conjunctiva/eyelids Overall: normal eyelids 10/09/2016 None Full Exam - Dermatology Ears/Nose/Throat lips/teeth/gingiva Overall: benign lips 10/09/2016 None Full Exam - Dermatology Ears/Nose/Throat oropharynx Overall: clear oral mucosa 10/09/2016 None Full Exam - Dermatology Respiratory auscultation Overall: breath sounds clear bilaterally 10/09/2016 None Full Exam - Dermatology Respiratory respiratory effort/rhythm Overall: no retractions 10/09/2016 None Full Exam - Dermatology Respiratory respiratory effort/rhythm Overall: normal rate 10/09/2016 None Full Exam - Dermatology Integument insp & palp - genitalia/groin/buttocks Color: erythematous 10/09/2016 None Full Exam - Dermatology Integument insp & palp - genitalia/groin/buttocks Lesion: vesicle 10/09/2016 None Full Exam - Dermatology Integument insp & palp - left upper extremity Location: on the fingers 10/09/2016 erythematous vesicles Full Exam - Dermatology Integument insp & palp - genitalia/groin/buttocks Location: on the right buttock 10/09/2016 None Full Exam - Dermatology Psychiatric orientation Overall: oriented to person, place and time 10/09/2016 None Full Exam - Dermatology Psychiatric mood and affect Overall: normal mood and affect 10/09/2016 None Full Exam - Dermatology Integument insp & palp - left upper extremity Location: on the forearm 10/09/2016 lipoma Full Exam - General 1994 Constitutional general appearance Development: well developed 09/09/2016 None Full Exam - General 1994 Constitutional general appearance Development: appears stated age 0709/09/2016 None Full Exam - General 1994 Eyes conjunctiva/eyelids Overall: conjunctiva clear 09/09/2016 None Full Exam - General 1994 Eyes conjunctiva/eyelids Overall: cornea clear 09/09/2016 None Full Exam - General 1994 Eyes conjunctiva/eyelids Overall: eyelids normal 09/09/2016 None Full Exam - General 1994 Eyes pupils and irises Overall: pupils equal, round, reactive to light and accomodation 09/09/2016 None Full Exam - General 1994 Ears/Nose/Throat lips/teeth/gingiva Overall: benign lips 09/09/2016 None Full Exam - General 1994 Ears/Nose/Throat lips/teeth/gingiva Overall: normal dentition 09/09/2016 None Full Exam - General 1994 Ears/Nose/Throat oral cavity/pharynx/larynx Overall: oral mucosa clear 09/09/2016 None Full Exam - General 1994 Neck inspection of neck Overall: normal size 09/09/2016 None Full Exam - General 1994 Neck inspection of neck Overall: normal appearance 09/09/2016 None Full Exam - General 1994 Neck inspection of neck Overall: no masses 09/09/2016 None Full Exam - General 1994 Respiratory auscultation Overall: breath sounds clear bilaterally 09/09/2016 None Full Exam - General 1994 Respiratory respiratory effort/rhythm Overall: no retractions 09/09/2016 None Full Exam - General 1994 Respiratory respiratory effort/rhythm Overall: normal rate 09/09/2016 None Full Exam - General 1994 Cardiovascular extremities Edema present: non-pitting 09/09/2016 None Full Exam - General 1994 Cardiovascular extremities Edema present: severity 1+ - 4+: 1+ 09/09/2016 None Full Exam - General 1994 Cardiovascular extremities Edema present: bilateral 09/09/2016 None Full Exam - General 1994 Cardiovascular auscultation of heart Overall: regular rate 09/09/2016 None Full Exam - General 1994 Cardiovascular auscultation of heart Overall: normal heart sounds 09/09/2016 None Full Exam - General 1994 Cardiovascular auscultation of heart Overall: no murmurs 09/09/2016 None Full Exam - General 1994 Abdomen abdominal exam Overall: normal bowel sounds 09/09/2016 None Full Exam - General 1994 Abdomen abdominal exam Contour: protuberant 09/09/2016 None Full Exam - General 1994 Lymphatic neck nodes Overall: anterior cervical chain benign 09/09/2016 None Full Exam - General 1994 Lymphatic neck nodes Overall: posterior cervical chain benign 09/09/2016 None Full Exam - General 1994 Psychiatric orientation/consciousness Overall: oriented to person, place and time 09/09/2016 None Full Exam - General 1994 Musculoskeletal upper extremity Palpation - forearm: tenderness 09/09/2016 at elbow olecranon process Full Exam - General 1994 Musculoskeletal upper extremity ROM - wrist: decreased flexion 09/09/2016 None Full Exam - General 1994 Musculoskeletal upper extremity ROM - wrist: decreased extension 09/09/2016 None Full Exam - General 1994 Musculoskeletal upper extremity Palpation - wrist: positive Phalen's test 09/09/2016 None Full Exam - General 1994 Constitutional general appearance Development: well developed 05/31/2016 None Full Exam - General 1994 Constitutional general appearance Development: appears stated age 0405/31/2016 None Full Exam - General 1994 Eyes conjunctiva/eyelids Overall: conjunctiva clear 05/31/2016 None Full Exam - General 1994 Eyes conjunctiva/eyelids Overall: cornea clear 05/31/2016 None Full Exam - General 1994 Eyes conjunctiva/eyelids Overall: eyelids normal 05/31/2016 None Full Exam - General 1994 Eyes pupils and irises Overall: pupils equal, round, reactive to light and accomodation 05/31/2016 None Full Exam - General 1994 Ears/Nose/Throat otoscopic exam Overall: external auditory canals clear 05/31/2016 None Full Exam - General 1994 Ears/Nose/Throat otoscopic exam Overall: tympanic membranes clear 05/31/2016 None Full Exam - General 1994 Ears/Nose/Throat lips/teeth/gingiva Overall: benign lips 05/31/2016 None Full Exam - General 1994 Ears/Nose/Throat lips/teeth/gingiva Overall: normal dentition 05/31/2016 None Full Exam - General 1994 Ears/Nose/Throat oral cavity/pharynx/larynx Overall: oral mucosa clear 05/31/2016 None Full Exam - General 1994 Neck inspection of neck Overall: normal size 05/31/2016 None Full Exam - General 1994 Neck inspection of neck Overall: normal appearance 05/31/2016 None Full Exam - General 1994 Neck inspection of neck Overall: no masses 05/31/2016 None Full Exam - General 1994 Respiratory auscultation Overall: breath sounds clear bilaterally 05/31/2016 None Full Exam - General 1994 Respiratory respiratory effort/rhythm Overall: no retractions 05/31/2016 None Full Exam - General 1994 Respiratory respiratory effort/rhythm Overall: normal rate 05/31/2016 None Full Exam - General 1994 Cardiovascular extremities Edema present: non-pitting 05/31/2016 None Full Exam - General 1994 Cardiovascular extremities Edema present: severity 1+ - 4+: 1+ 05/31/2016 None Full Exam - General 1994 Cardiovascular extremities Edema present: bilateral 05/31/2016 None Full Exam - General 1994 Cardiovascular auscultation of heart Overall: regular rate 05/31/2016 None Full Exam - General 1994 Cardiovascular auscultation of heart Overall: normal heart sounds 05/31/2016 None Full Exam - General 1994 Cardiovascular auscultation of heart Overall: no murmurs 05/31/2016 None Full Exam - General 1994 Abdomen abdominal exam Overall: normal bowel sounds 05/31/2016 None Full Exam - General 1994 Abdomen abdominal exam Contour: protuberant 05/31/2016 None Full Exam - General 1994 Lymphatic neck nodes Overall: anterior cervical chain benign 05/31/2016 None Full Exam - General 1994 Lymphatic neck nodes Overall: posterior cervical chain benign 05/31/2016 None Full Exam - General 1994 Psychiatric orientation/consciousness Overall: oriented to person, place and time 05/31/2016 None Full Exam - General 1994 Constitutional general appearance Development: well developed 03/29/2016 None Full Exam - General 1994 Constitutional general appearance Development: appears stated age 0203/29/2016 None Full Exam - General 1994 Eyes conjunctiva/eyelids Overall: conjunctiva clear 03/29/2016 None Full Exam - General 1994 Eyes conjunctiva/eyelids Overall: cornea clear 03/29/2016 None Full Exam - General 1994 Eyes conjunctiva/eyelids Overall: eyelids normal 03/29/2016 None Full Exam - General 1994 Eyes pupils and irises Overall: pupils equal, round, reactive to light and accomodation 03/29/2016 None Full Exam - General 1994 Ears/Nose/Throat otoscopic exam Overall: external auditory canals clear 03/29/2016 None Full Exam - General 1994 Ears/Nose/Throat otoscopic exam Overall: tympanic membranes clear 03/29/2016 None Full Exam - General 1994 Ears/Nose/Throat oral cavity/pharynx/larynx Overall: oral mucosa clear 03/29/2016 None Full Exam - General 1994 Ears/Nose/Throat lips/teeth/gingiva Overall: benign lips 03/29/2016 None Full Exam - General 1994 Ears/Nose/Throat lips/teeth/gingiva Overall: normal dentition 03/29/2016 None Full Exam - General 1994 Neck inspection of neck Overall: normal size 03/29/2016 None Full Exam - General 1994 Neck inspection of neck Overall: normal appearance 03/29/2016 None Full Exam - General 1994 Neck inspection of neck Overall: no masses 03/29/2016 None Full Exam - General 1994 Respiratory auscultation Overall: breath sounds clear bilaterally 03/29/2016 None Full Exam - General 1994 Respiratory respiratory effort/rhythm Overall: no retractions 03/29/2016 None Full Exam - General 1994 Respiratory respiratory effort/rhythm Overall: normal rate 03/29/2016 None Full Exam - General 1994 Cardiovascular auscultation of heart Overall: regular rate 03/29/2016 None Full Exam - General 1994 Cardiovascular auscultation of heart Overall: normal heart sounds 03/29/2016 None Full Exam - General 1994 Cardiovascular auscultation of heart Overall: no murmurs 03/29/2016 None Full Exam - General 1994 Cardiovascular extremities Edema present: bilateral 03/29/2016 None Full Exam - General 1994 Cardiovascular extremities Edema present: non-pitting 03/29/2016 None Full Exam - General 1994 Cardiovascular extremities Edema present: severity 1+ - 4+: 1+ 03/29/2016 None Full Exam - General 1994 Abdomen abdominal exam Overall: normal bowel sounds 03/29/2016 None Full Exam - General 1994 Abdomen abdominal exam Contour: protuberant 03/29/2016 None Full Exam - General 1994 Lymphatic neck nodes Overall: anterior cervical chain benign 03/29/2016 None Full Exam - General 1994 Lymphatic neck nodes Overall: posterior cervical chain benign 03/29/2016 None Full Exam - General 1994 Psychiatric orientation/consciousness Overall: oriented to person, place and time 03/29/2016 None Full Exam - General 1994 Constitutional general appearance Development: well developed 03/11/2016 None Full Exam - General 1994 Constitutional general appearance Development: appears stated age 0103/11/2016 None Full Exam - General 1994 Constitutional general appearance Hygiene/Attention to Grooming: good hygiene 03/11/2016 None Full Exam - General 1994 Eyes conjunctiva/eyelids Overall: conjunctiva clear 03/11/2016 None Full Exam - General 1994 Eyes conjunctiva/eyelids Overall: cornea clear 03/11/2016 None Full Exam - General 1994 Eyes conjunctiva/eyelids Overall: eyelids normal 03/11/2016 None Full Exam - General 1994 Eyes pupils and irises Overall: pupils equal, round, reactive to light and accomodation 03/11/2016 None Full Exam - General 1994 Ears/Nose/Throat otoscopic exam Overall: external auditory canals clear 03/11/2016 None Full Exam - General 1994 Ears/Nose/Throat otoscopic exam Overall: tympanic membranes clear 03/11/2016 None Full Exam - General 1994 Ears/Nose/Throat lips/teeth/gingiva Overall: benign lips 03/11/2016 None Full Exam - General 1994 Ears/Nose/Throat lips/teeth/gingiva Overall: normal dentition 03/11/2016 None Full Exam - General 1994 Ears/Nose/Throat oral cavity/pharynx/larynx Overall: oral mucosa clear 03/11/2016 None Full Exam - General 1994 Ears/Nose/Throat oral cavity/pharynx/larynx Overall: oropharyngeal mucosa clear 03/11/2016 None Full Exam - General 1994 Ears/Nose/Throat oral cavity/pharynx/larynx Overall: hypopharynx benign 03/11/2016 None Full Exam - General 1994 Ears/Nose/Throat oral cavity/pharynx/larynx Overall: no masses 03/11/2016 None Full Exam - General 1994 Respiratory auscultation Overall: breath sounds clear bilaterally 03/11/2016 None Full Exam - General 1994 Respiratory respiratory effort/rhythm Overall: no retractions 03/11/2016 None Full Exam - General 1994 Respiratory respiratory effort/rhythm Overall: normal rate 03/11/2016 None Full Exam - General 1994 Cardiovascular extremities Overall: no clubbing 03/11/2016 None Full Exam - General 1994 Cardiovascular auscultation of heart Overall: regular rate 03/11/2016 None Full Exam - General 1994 Cardiovascular auscultation of heart Overall: normal heart sounds 03/11/2016 None Full Exam - General 1994 Abdomen abdominal exam Overall: no tenderness 03/11/2016 None Full Exam - General 1994 Abdomen abdominal exam Overall: normal bowel sounds 03/11/2016 None Full Exam - General 1994 Abdomen abdominal exam Skin: presence of a scar 03/11/2016 - from umbilicus to suprapubic region - Full Exam - General 1994 Integument inspection of skin Overall: few scattered moles, no gross abnormalities 03/11/2016 None Full Exam - General 1994 Neurologic deep tendon reflexes Overall: deep tendon reflexes intact 03/11/2016 None Full Exam - General 1994 Neurologic cranial nerves Overall: crainial nerves 2 - 12 grossly intact 03/11/2016 None Full Exam - General 1994 Psychiatric orientation/consciousness Overall: oriented to person, place and time 03/11/2016 None Full Exam - General 1994 Psychiatric mood and affect Overall: normal mood and affect 03/11/2016 None Full Exam - ENT Constitutional general appearance Overall: well nourished 02/23/2016 None Full Exam - ENT Constitutional general appearance Overall: well developed 02/23/2016 None Full Exam - ENT Constitutional general appearance Overall: in no acute distress 02/23/2016 None Full Exam - ENT Ears/Nose/Throat otoscopic exam Overall: external auditory canals normal 02/23/2016 None Full Exam - ENT Ears/Nose/Throat otoscopic exam Left tympanic membrane: air-fluid level 02/23/2016 None Full Exam - ENT Ears/Nose/Throat otoscopic exam Right tympanic membrane: air-fluid level 02/23/2016 None Full Exam - ENT Ears/Nose/Throat lips/teeth/gingiva Overall: benign lips 02/23/2016 None Full Exam - ENT Ears/Nose/Throat oropharynx Overall: oral mucosa clear 02/23/2016 None Full Exam - ENT Ears/Nose/Throat oropharynx Posterior Pharynx: clear post nasal drainage 02/23/2016 None Full Exam - ENT Ears/Nose/Throat oropharynx Posterior Pharynx: erythema 02/23/2016 None Full Exam - ENT Respiratory inspection Overall: no retractions 02/23/2016 None Full Exam - ENT Respiratory inspection Overall: normal rate 02/23/2016 None Full Exam - ENT Respiratory auscultation Overall: breath sounds clear bilaterally 02/23/2016 None Full Exam - ENT Cardiovascular auscultation of heart Rate: normal rate 02/23/2016 None Full Exam - ENT Cardiovascular auscultation of heart Rhythm: regular rhythm 02/23/2016 None Full Exam - ENT Lymphatic palpation of lymph nodes Overall: anterior cervical chain benign 02/23/2016 None Full Exam - ENT Lymphatic palpation of lymph nodes Overall: posterior cervical chain benign 02/23/2016 None Full Exam - ENT Neurologic mood and affect Overall: normal mood 02/23/2016 None Full Exam - ENT Neurologic mood and affect Overall: normal affect 02/23/2016 None Full Exam - ENT Neurologic orientation Overall: oriented to person, place and time 02/23/2016 None Full Exam - ENT Respiratory auscultation Basilar: diminished 02/23/2016 None Full Exam - ENT Respiratory auscultation Right lower lung field: expiratory wheezes 02/23/2016 None Full Exam - General 1994 Constitutional general appearance Development: well developed 01/16/2016 None Full Exam - General 1994 Constitutional general appearance Development: appears stated age 1101/16/2016 None Full Exam - General 1994 Constitutional general appearance Hygiene/Attention to Grooming: good hygiene 01/16/2016 None Full Exam - General 1994 Eyes conjunctiva/eyelids Overall: conjunctiva clear 01/16/2016 None Full Exam - General 1994 Eyes conjunctiva/eyelids Overall: cornea clear 01/16/2016 None Full Exam - General 1994 Eyes conjunctiva/eyelids Overall: eyelids normal 01/16/2016 None Full Exam - General 1994 Eyes pupils and irises Overall: pupils equal, round, reactive to light and accomodation 01/16/2016 None Full Exam - General 1994 Ears/Nose/Throat otoscopic exam Overall: external auditory canals clear 01/16/2016 None Full Exam - General 1994 Ears/Nose/Throat otoscopic exam Overall: tympanic membranes clear 01/16/2016 None Full Exam - General 1994 Ears/Nose/Throat lips/teeth/gingiva Overall: benign lips 01/16/2016 None Full Exam - General 1994 Ears/Nose/Throat lips/teeth/gingiva Overall: normal dentition 01/16/2016 None Full Exam - General 1994 Ears/Nose/Throat oral cavity/pharynx/larynx Overall: oral mucosa clear 01/16/2016 None Full Exam - General 1994 Ears/Nose/Throat oral cavity/pharynx/larynx Overall: oropharyngeal mucosa clear 01/16/2016 None Full Exam - General 1994 Ears/Nose/Throat oral cavity/pharynx/larynx Overall: hypopharynx benign 01/16/2016 None Full Exam - General 1994 Ears/Nose/Throat oral cavity/pharynx/larynx Overall: no masses 01/16/2016 None Full Exam - General 1994 Respiratory auscultation Overall: breath sounds clear bilaterally 01/16/2016 None Full Exam - General 1994 Respiratory respiratory effort/rhythm Overall: no retractions 01/16/2016 None Full Exam - General 1994 Respiratory respiratory effort/rhythm Overall: normal rate 01/16/2016 None Full Exam - General 1994 Cardiovascular extremities Overall: no clubbing 01/16/2016 None Full Exam - General 1994 Cardiovascular auscultation of heart Overall: regular rate 01/16/2016 None Full Exam - General 1994 Cardiovascular auscultation of heart Overall: normal heart sounds 01/16/2016 None Full Exam - General 1994 Abdomen abdominal exam Overall: no tenderness 01/16/2016 None Full Exam - General 1994 Abdomen abdominal exam Overall: normal bowel sounds 01/16/2016 None Full Exam - General 1994 Abdomen abdominal exam Skin: presence of a scar 01/16/2016 - from umbilicus to suprapubic region - Full Exam - General 1994 Integument inspection of skin Overall: few scattered moles, no gross abnormalities 01/16/2016 None Full Exam - General 1994 Neurologic deep tendon reflexes Overall: deep tendon reflexes intact 01/16/2016 None Full Exam - General 1994 Neurologic cranial nerves Overall: crainial nerves 2 - 12 grossly intact 01/16/2016 None Full Exam - General 1994 Psychiatric orientation/consciousness Overall: oriented to person, place and time 01/16/2016 None Full Exam - General 1994 Psychiatric mood and affect Overall: normal mood and affect 01/16/2016 None Full Exam - General 1994 Constitutional general appearance Development: well developed 12/26/2015 None Full Exam - General 1994 Constitutional general appearance Development: appears stated age 1112/26/2015 None Full Exam - General 1994 Constitutional general appearance Hygiene/Attention to Grooming: good hygiene 12/26/2015 None Full Exam - General 1994 Eyes conjunctiva/eyelids Overall: conjunctiva clear 12/26/2015 None Full Exam - General 1994 Eyes conjunctiva/eyelids Overall: cornea clear 12/26/2015 None Full Exam - General 1994 Eyes conjunctiva/eyelids Overall: eyelids normal 12/26/2015 None Full Exam - General 1994 Eyes pupils and irises Overall: pupils equal, round, reactive to light and accomodation 12/26/2015 None Full Exam - General 1994 Ears/Nose/Throat otoscopic exam Overall: external auditory canals clear 12/26/2015 None Full Exam - General 1994 Ears/Nose/Throat otoscopic exam Overall: tympanic membranes clear 12/26/2015 None Full Exam - General 1994 Ears/Nose/Throat lips/teeth/gingiva Overall: benign lips 12/26/2015 None Full Exam - General 1994 Ears/Nose/Throat lips/teeth/gingiva Overall: normal dentition 12/26/2015 None Full Exam - General 1994 Ears/Nose/Throat oral cavity/pharynx/larynx Overall: oral mucosa clear 12/26/2015 None Full Exam - General 1994 Ears/Nose/Throat oral cavity/pharynx/larynx Overall: oropharyngeal mucosa clear 12/26/2015 None Full Exam - General 1994 Ears/Nose/Throat oral cavity/pharynx/larynx Overall: hypopharynx benign 12/26/2015 None Full Exam - General 1994 Ears/Nose/Throat oral cavity/pharynx/larynx Overall: no masses 12/26/2015 None Full Exam - General 1994 Respiratory auscultation Overall: breath sounds clear bilaterally 12/26/2015 None Full Exam - General 1994 Respiratory respiratory effort/rhythm Overall: no retractions 12/26/2015 None Full Exam - General 1994 Respiratory respiratory effort/rhythm Overall: normal rate 12/26/2015 None Full Exam - General 1994 Cardiovascular extremities Overall: no clubbing 12/26/2015 None Full Exam - General 1994 Cardiovascular auscultation of heart Overall: regular rate 12/26/2015 None Full Exam - General 1994 Cardiovascular auscultation of heart Overall: normal heart sounds 12/26/2015 None Full Exam - General 1994 Abdomen abdominal exam Overall: no tenderness 12/26/2015 None Full Exam - General 1994 Abdomen abdominal exam Overall: normal bowel sounds 12/26/2015 None Full Exam - General 1994 Abdomen abdominal exam Skin: presence of a scar 12/26/2015 - from umbilicus to suprapubic region - Full Exam - General 1994 Integument inspection of skin Overall: few scattered moles, no gross abnormalities 12/26/2015 None Full Exam - General 1994 Neurologic deep tendon reflexes Overall: deep tendon reflexes intact 12/26/2015 None Full Exam - General 1994 Neurologic cranial nerves Overall: crainial nerves 2 - 12 grossly intact 12/26/2015 None Full Exam - General 1994 Psychiatric orientation/consciousness Overall: oriented to person, place and time 12/26/2015 None Full Exam - General 1994 Psychiatric mood and affect Overall: normal mood and affect 12/26/2015 None Full Exam - ENT Constitutional general appearance Overall: well nourished 11/20/2015 None Full Exam - ENT Constitutional general appearance Overall: well developed 11/20/2015 None Full Exam - ENT Constitutional general appearance Overall: in no acute distress 11/20/2015 None Full Exam - ENT Neurologic orientation Overall: oriented to person, place and time 11/20/2015 None Full Exam - ENT Integument inspection of skin Overall: no rash, lesions 11/20/2015 None Full Exam - ENT Lymphatic palpation of lymph nodes Overall: posterior cervical chain benign 11/20/2015 None Full Exam - ENT Lymphatic palpation of lymph nodes Overall: anterior cervical chain benign 11/20/2015 None Full Exam - ENT Cardiovascular auscultation of heart Overall: regular rate 11/20/2015 None Full Exam - ENT Cardiovascular auscultation of heart Overall: normal heart sounds 11/20/2015 None Full Exam - ENT Cardiovascular auscultation of heart Overall: no murmurs 11/20/2015 None Full Exam - ENT Respiratory auscultation Overall: breath sounds clear bilaterally 11/20/2015 None Full Exam - ENT Respiratory inspection Overall: no retractions 11/20/2015 None Full Exam - ENT Respiratory inspection Overall: normal rate 11/20/2015 None Full Exam - ENT Face and Head palpation Overall: no sinus tenderness 11/20/2015 None Full Exam - ENT Ears/Nose/Throat otoscopic exam Overall: tympanic membranes normal 11/20/2015 None Full Exam - ENT Ears/Nose/Throat otoscopic exam Overall: external auditory canals normal 11/20/2015 None Full Exam - ENT Ears/Nose/Throat oropharynx Posterior Pharynx: erythema 11/20/2015 None Full Exam - General 1994 Constitutional general appearance Development: well developed 09/01/2015 None Full Exam - General 1994 Constitutional general appearance Development: appears stated age 0709/01/2015 None Full Exam - General 1994 Constitutional general appearance Hygiene/Attention to Grooming: good hygiene 09/01/2015 None Full Exam - General 1994 Eyes conjunctiva/eyelids Overall: conjunctiva clear 09/01/2015 None Full Exam - General 1994 Eyes conjunctiva/eyelids Overall: cornea clear 09/01/2015 None Full Exam - General 1994 Eyes conjunctiva/eyelids Overall: eyelids normal 09/01/2015 None Full Exam - General 1994 Eyes pupils and irises Overall: pupils equal, round, reactive to light and accomodation 09/01/2015 None Full Exam - General 1994 Ears/Nose/Throat lips/teeth/gingiva Overall: benign lips 09/01/2015 None Full Exam - General 1994 Ears/Nose/Throat lips/teeth/gingiva Overall: normal dentition 09/01/2015 None Full Exam - General 1994 Respiratory auscultation Overall: breath sounds clear bilaterally 09/01/2015 None Full Exam - General 1994 Respiratory respiratory effort/rhythm Overall: no retractions 09/01/2015 None Full Exam - General 1994 Respiratory respiratory effort/rhythm Overall: normal rate 09/01/2015 None Full Exam - General 1994 Cardiovascular extremities Overall: no clubbing 09/01/2015 None Full Exam - General 1994 Cardiovascular auscultation of heart Overall: regular rate 09/01/2015 None Full Exam - General 1994 Cardiovascular auscultation of heart Overall: normal heart sounds 09/01/2015 None Full Exam - General 1994 Neurologic cranial nerves Overall: crainial nerves 2 - 12 grossly intact 09/01/2015 None Full Exam - General 1994 Psychiatric orientation/consciousness Overall: oriented to person, place and time 09/01/2015 None Full Exam - General 1994 Psychiatric mood and affect Overall: normal mood and affect 09/01/2015 None Full Exam - General 1994 Integument inspection of skin Location: left axilla 09/01/2015 None Full Exam - General 1994 Integument inspection of skin Rash/Lesions: patch 09/01/2015 None Full Exam - General 1994 Integument inspection of skin Pigmentation: erythematous 09/01/2015 None Full Exam - General 1994 Psychiatric appearance Overall: well-groomed, good eye contact 09/01/2015 None Full Exam - General 1994 Psychiatric speech Overall: normal quality, no aphasia 09/01/2015 None Full Exam - General 1994 Psychiatric speech Overall: normal quality, quantity, rate 09/01/2015 None Full Exam - General 1994 Constitutional general appearance Development: well developed 08/09/2015 None Full Exam - General 1994 Constitutional general appearance Development: appears stated age 0608/09/2015 None Full Exam - General 1994 Constitutional general appearance Hygiene/Attention to Grooming: good hygiene 08/09/2015 None Full Exam - General 1994 Eyes conjunctiva/eyelids Overall: conjunctiva clear 08/09/2015 None Full Exam - General 1994 Eyes conjunctiva/eyelids Overall: cornea clear 08/09/2015 None Full Exam - General 1994 Eyes conjunctiva/eyelids Overall: eyelids normal 08/09/2015 None Full Exam - General 1994 Eyes pupils and irises Overall: pupils equal, round, reactive to light and accomodation 08/09/2015 None Full Exam - General 1994 Ears/Nose/Throat otoscopic exam Overall: external auditory canals clear 08/09/2015 None Full Exam - General 1994 Ears/Nose/Throat otoscopic exam Overall: tympanic membranes clear 08/09/2015 None Full Exam - General 1994 Ears/Nose/Throat lips/teeth/gingiva Overall: benign lips 08/09/2015 None Full Exam - General 1994 Ears/Nose/Throat lips/teeth/gingiva Overall: normal dentition 08/09/2015 None Full Exam - General 1994 Ears/Nose/Throat oral cavity/pharynx/larynx Overall: oral mucosa clear 08/09/2015 None Full Exam - General 1994 Ears/Nose/Throat oral cavity/pharynx/larynx Overall: oropharyngeal mucosa clear 08/09/2015 None Full Exam - General 1994 Ears/Nose/Throat oral cavity/pharynx/larynx Overall: hypopharynx benign 08/09/2015 None Full Exam - General 1994 Ears/Nose/Throat oral cavity/pharynx/larynx Overall: no masses 08/09/2015 None Full Exam - General 1994 Respiratory auscultation Overall: breath sounds clear bilaterally 08/09/2015 None Full Exam - General 1994 Respiratory respiratory effort/rhythm Overall: no retractions 08/09/2015 None Full Exam - General 1994 Respiratory respiratory effort/rhythm Overall: normal rate 08/09/2015 None Full Exam - General 1994 Cardiovascular extremities Overall: no clubbing 08/09/2015 None Full Exam - General 1994 Cardiovascular auscultation of heart Overall: regular rate 08/09/2015 None Full Exam - General 1994 Cardiovascular auscultation of heart Overall: normal heart sounds 08/09/2015 None Full Exam - General 1994 Abdomen abdominal exam Overall: no tenderness 08/09/2015 None Full Exam - General 1994 Abdomen abdominal exam Overall: normal bowel sounds 08/09/2015 None Full Exam - General 1994 Abdomen abdominal exam Skin: presence of a scar 08/09/2015 - from umbilicus to suprapubic region - Full Exam - General 1994 Integument inspection of skin Overall: few scattered moles, no gross abnormalities 08/09/2015 None Full Exam - General 1994 Neurologic deep tendon reflexes Overall: deep tendon reflexes intact 08/09/2015 None Full Exam - General 1994 Neurologic cranial nerves Overall: crainial nerves 2 - 12 grossly intact 08/09/2015 None Full Exam - General 1994 Psychiatric orientation/consciousness Overall: oriented to person, place and time 08/09/2015 None Full Exam - General 1994 Psychiatric mood and affect Overall: normal mood and affect 08/09/2015 None Full Exam - General 1994 Lymphatic neck nodes Overall: anterior cervical chain benign 08/09/2015 None Full Exam - General 1994 Lymphatic neck nodes Overall: posterior cervical chain benign 08/09/2015 None Full Exam - General 1994 Constitutional general appearance Development: well developed 06/26/2015 None Full Exam - General 1994 Constitutional general appearance Development: appears stated age 0506/26/2015 None Full Exam - General 1994 Constitutional general appearance Hygiene/Attention to Grooming: good hygiene 06/26/2015 None Full Exam - General 1994 Eyes conjunctiva/eyelids Overall: conjunctiva clear 06/26/2015 None Full Exam - General 1994 Eyes conjunctiva/eyelids Overall: cornea clear 06/26/2015 None Full Exam - General 1994 Eyes conjunctiva/eyelids Overall: eyelids normal 06/26/2015 None Full Exam - General 1994 Eyes pupils and irises Overall: pupils equal, round, reactive to light and accomodation 06/26/2015 None Full Exam - General 1994 Ears/Nose/Throat otoscopic exam Overall: external auditory canals clear 06/26/2015 None Full Exam - General 1994 Ears/Nose/Throat otoscopic exam Overall: tympanic membranes clear 06/26/2015 None Full Exam - General 1994 Ears/Nose/Throat lips/teeth/gingiva Overall: benign lips 06/26/2015 None Full Exam - General 1994 Ears/Nose/Throat lips/teeth/gingiva Overall: normal dentition 06/26/2015 None Full Exam - General 1994 Ears/Nose/Throat oral cavity/pharynx/larynx Overall: oral mucosa clear 06/26/2015 None Full Exam - General 1994 Ears/Nose/Throat oral cavity/pharynx/larynx Overall: oropharyngeal mucosa clear 06/26/2015 None Full Exam - General 1994 Ears/Nose/Throat oral cavity/pharynx/larynx Overall: hypopharynx benign 06/26/2015 None Full Exam - General 1994 Ears/Nose/Throat oral cavity/pharynx/larynx Overall: no masses 06/26/2015 None Full Exam - General 1994 Respiratory auscultation Overall: breath sounds clear bilaterally 06/26/2015 None Full Exam - General 1994 Respiratory respiratory effort/rhythm Overall: no retractions 06/26/2015 None Full Exam - General 1994 Respiratory respiratory effort/rhythm Overall: normal rate 06/26/2015 None Full Exam - General 1994 Cardiovascular extremities Overall: no clubbing 06/26/2015 None Full Exam - General 1994 Cardiovascular auscultation of heart Overall: regular rate 06/26/2015 None Full Exam - General 1994 Cardiovascular auscultation of heart Overall: normal heart sounds 06/26/2015 None Full Exam - General 1994 Abdomen abdominal exam Overall: no tenderness 06/26/2015 None Full Exam - General 1994 Abdomen abdominal exam Overall: normal bowel sounds 06/26/2015 None Full Exam - General 1994 Abdomen abdominal exam Skin: presence of a scar 06/26/2015 - from umbilicus to suprapubic region - Full Exam - General 1994 Integument inspection of skin Overall: few scattered moles, no gross abnormalities 06/26/2015 None Full Exam - General 1994 Neurologic deep tendon reflexes Overall: deep tendon reflexes intact 06/26/2015 None Full Exam - General 1994 Neurologic cranial nerves Overall: crainial nerves 2 - 12 grossly intact 06/26/2015 None Full Exam - General 1994 Psychiatric orientation/consciousness Overall: oriented to person, place and time 06/26/2015 None Full Exam - General 1994 Psychiatric mood and affect Overall: normal mood and affect 06/26/2015 None Full Exam - General 1994 Constitutional general appearance Development: well developed 11/18/2014 None Full Exam - General 1994 Constitutional general appearance Development: appears stated age 0911/18/2014 None Full Exam - General 1994 Constitutional general appearance Hygiene/Attention to Grooming: good hygiene 11/18/2014 None Full Exam - General 1994 Eyes conjunctiva/eyelids Overall: conjunctiva clear 11/18/2014 None Full Exam - General 1994 Eyes conjunctiva/eyelids Overall: cornea clear 11/18/2014 None Full Exam - General 1994 Eyes conjunctiva/eyelids Overall: eyelids normal 11/18/2014 None Full Exam - General 1994 Eyes pupils and irises Overall: pupils equal, round, reactive to light and accomodation 11/18/2014 None Full Exam - General 1994 Ears/Nose/Throat otoscopic exam Overall: external auditory canals clear 11/18/2014 None Full Exam - General 1994 Ears/Nose/Throat otoscopic exam Overall: tympanic membranes clear 11/18/2014 None Full Exam - General 1994 Ears/Nose/Throat lips/teeth/gingiva Overall: benign lips 11/18/2014 None Full Exam - General 1994 Ears/Nose/Throat lips/teeth/gingiva Overall: normal dentition 11/18/2014 None Full Exam - General 1994 Ears/Nose/Throat oral cavity/pharynx/larynx Overall: oral mucosa clear 11/18/2014 None Full Exam - General 1994 Ears/Nose/Throat oral cavity/pharynx/larynx Overall: oropharyngeal mucosa clear 11/18/2014 None Full Exam - General 1994 Ears/Nose/Throat oral cavity/pharynx/larynx Overall: hypopharynx benign 11/18/2014 None Full Exam - General 1994 Ears/Nose/Throat oral cavity/pharynx/larynx Overall: no masses 11/18/2014 None Full Exam - General 1994 Respiratory auscultation Overall: breath sounds clear bilaterally 11/18/2014 None Full Exam - General 1994 Respiratory respiratory effort/rhythm Overall: no retractions 11/18/2014 None Full Exam - General 1994 Respiratory respiratory effort/rhythm Overall: normal rate 11/18/2014 None Full Exam - General 1994 Cardiovascular extremities Overall: no clubbing 11/18/2014 None Full Exam - General 1994 Cardiovascular auscultation of heart Overall: regular rate 11/18/2014 None Full Exam - General 1994 Cardiovascular auscultation of heart Overall: normal heart sounds 11/18/2014 None Full Exam - General 1994 Abdomen abdominal exam Overall: no tenderness 11/18/2014 None Full Exam - General 1994 Abdomen abdominal exam Overall: normal bowel sounds 11/18/2014 None Full Exam - General 1994 Abdomen abdominal exam Skin: presence of a scar 11/18/2014 - from umbilicus to suprapubic region - Full Exam - General 1994 Integument inspection of skin Overall: few scattered moles, no gross abnormalities 11/18/2014 None Full Exam - General 1994 Neurologic deep tendon reflexes Overall: deep tendon reflexes intact 11/18/2014 None Full Exam - General 1994 Neurologic cranial nerves Overall: crainial nerves 2 - 12 grossly intact 11/18/2014 None Full Exam - General 1994 Psychiatric orientation/consciousness Overall: oriented to person, place and time 11/18/2014 None Full Exam - General 1994 Psychiatric mood and affect Overall: normal mood and affect 11/18/2014 None Full Exam - General 1994 Constitutional general appearance Development: well developed 11/01/2014 None Full Exam - General 1994 Constitutional general appearance Development: appears stated age 0911/01/2014 None Full Exam - General 1994 Constitutional general appearance Hygiene/Attention to Grooming: good hygiene 11/01/2014 None Full Exam - General 1994 Eyes conjunctiva/eyelids Overall: conjunctiva clear 11/01/2014 None Full Exam - General 1994 Eyes conjunctiva/eyelids Overall: cornea clear 11/01/2014 None Full Exam - General 1994 Eyes conjunctiva/eyelids Overall: eyelids normal 11/01/2014 None Full Exam - General 1994 Eyes pupils and irises Overall: pupils equal, round, reactive to light and accomodation 11/01/2014 None Full Exam - General 1994 Ears/Nose/Throat otoscopic exam Overall: external auditory canals clear 11/01/2014 None Full Exam - General 1994 Ears/Nose/Throat otoscopic exam Overall: tympanic membranes clear 11/01/2014 None Full Exam - General 1994 Ears/Nose/Throat lips/teeth/gingiva Overall: benign lips 11/01/2014 None Full Exam - General 1994 Ears/Nose/Throat lips/teeth/gingiva Overall: normal dentition 11/01/2014 None Full Exam - General 1994 Ears/Nose/Throat oral cavity/pharynx/larynx Overall: oral mucosa clear 11/01/2014 None Full Exam - General 1994 Ears/Nose/Throat oral cavity/pharynx/larynx Overall: oropharyngeal mucosa clear 11/01/2014 None Full Exam - General 1994 Ears/Nose/Throat oral cavity/pharynx/larynx Overall: hypopharynx benign 11/01/2014 None Full Exam - General 1994 Ears/Nose/Throat oral cavity/pharynx/larynx Overall: no masses 11/01/2014 None Full Exam - General 1994 Respiratory auscultation Overall: breath sounds clear bilaterally 11/01/2014 None Full Exam - General 1994 Respiratory respiratory effort/rhythm Overall: no retractions 11/01/2014 None Full Exam - General 1994 Respiratory respiratory effort/rhythm Overall: normal rate 11/01/2014 None Full Exam - General 1994 Cardiovascular extremities Overall: no clubbing 11/01/2014 None Full Exam - General 1994 Cardiovascular auscultation of heart Overall: regular rate 11/01/2014 None Full Exam - General 1994 Cardiovascular auscultation of heart Overall: normal heart sounds 11/01/2014 None Full Exam - General 1994 Abdomen abdominal exam Overall: normal bowel sounds 11/01/2014 None Full Exam - General 1994 Abdomen abdominal exam Skin: presence of a scar 11/01/2014 - from umbilicus to suprapubic region - Full Exam - General 1994 Integument inspection of skin Overall: few scattered moles, no gross abnormalities 11/01/2014 None Full Exam - General 1994 Neurologic deep tendon reflexes Overall: deep tendon reflexes intact 11/01/2014 None Full Exam - General 1994 Neurologic cranial nerves Overall: crainial nerves 2 - 12 grossly intact 11/01/2014 None Full Exam - General 1994 Psychiatric orientation/consciousness Overall: oriented to person, place and time 11/01/2014 None Full Exam - General 1994 Psychiatric mood and affect Overall: normal mood and affect 11/01/2014 None Full Exam - General 1994 Constitutional general appearance Development: well developed 10/27/2014 None Full Exam - General 1994 Constitutional general appearance Development: appears stated age 0910/27/2014 None Full Exam - General 1994 Constitutional general appearance Hygiene/Attention to Grooming: good hygiene 10/27/2014 None Full Exam - General 1994 Eyes conjunctiva/eyelids Overall: conjunctiva clear 10/27/2014 None Full Exam - General 1994 Eyes conjunctiva/eyelids Overall: cornea clear 10/27/2014 None Full Exam - General 1994 Eyes conjunctiva/eyelids Overall: eyelids normal 10/27/2014 None Full Exam - General 1994 Eyes pupils and irises Overall: pupils equal, round, reactive to light and accomodation 10/27/2014 None Full Exam - General 1994 Ears/Nose/Throat otoscopic exam Overall: external auditory canals clear 10/27/2014 None Full Exam - General 1994 Ears/Nose/Throat otoscopic exam Overall: tympanic membranes clear 10/27/2014 None Full Exam - General 1994 Ears/Nose/Throat lips/teeth/gingiva Overall: benign lips 10/27/2014 None Full Exam - General 1994 Ears/Nose/Throat lips/teeth/gingiva Overall: normal dentition 10/27/2014 None Full Exam - General 1994 Ears/Nose/Throat oral cavity/pharynx/larynx Overall: oral mucosa clear 10/27/2014 None Full Exam - General 1994 Ears/Nose/Throat oral cavity/pharynx/larynx Overall: oropharyngeal mucosa clear 10/27/2014 None Full Exam - General 1994 Ears/Nose/Throat oral cavity/pharynx/larynx Overall: hypopharynx benign 10/27/2014 None Full Exam - General 1994 Ears/Nose/Throat oral cavity/pharynx/larynx Overall: no masses 10/27/2014 None Full Exam - General 1994 Respiratory auscultation Overall: breath sounds clear bilaterally 10/27/2014 None Full Exam - General 1994 Respiratory respiratory effort/rhythm Overall: no retractions 10/27/2014 None Full Exam - General 1994 Respiratory respiratory effort/rhythm Overall: normal rate 10/27/2014 None Full Exam - General 1994 Cardiovascular extremities Overall: no clubbing 10/27/2014 None Full Exam - General 1994 Cardiovascular auscultation of heart Overall: regular rate 10/27/2014 None Full Exam - General 1994 Cardiovascular auscultation of heart Overall: normal heart sounds 10/27/2014 None Full Exam - General 1994 Abdomen abdominal exam Overall: no tenderness 10/27/2014 None Full Exam - General 1994 Abdomen abdominal exam Overall: normal bowel sounds 10/27/2014 None Full Exam - General 1994 Abdomen abdominal exam Skin: presence of a scar 10/27/2014 - from umbilicus to suprapubic region - Full Exam - General 1994 Integument inspection of skin Overall: few scattered moles, no gross abnormalities 10/27/2014 None Full Exam - General 1994 Neurologic deep tendon reflexes Overall: deep tendon reflexes intact 10/27/2014 None Full Exam - General 1994 Neurologic cranial nerves Overall: crainial nerves 2 - 12 grossly intact 10/27/2014 None Full Exam - General 1994 Psychiatric orientation/consciousness Overall: oriented to person, place and time 10/27/2014 None Full Exam - General 1994 Psychiatric mood and affect Overall: normal mood and affect 10/27/2014 None Full Exam - General 1994 Constitutional general appearance Development: well developed 2014 None Full Exam - General 1994 Constitutional general appearance Development: appears stated age 0708/29/2014 None Full Exam - General 1994 Constitutional general appearance Hygiene/Attention to Grooming: good hygiene 2014 None Full Exam - General 1994 Eyes conjunctiva/eyelids Overall: conjunctiva clear 2014 None Full Exam - General 1994 Eyes conjunctiva/eyelids Overall: cornea clear 2014 None Full Exam - General 1994 Eyes conjunctiva/eyelids Overall: eyelids normal 2014 None Full Exam - General 1994 Eyes pupils and irises Overall: pupils equal, round, reactive to light and accomodation 2014 None Full Exam - General 1994 Ears/Nose/Throat otoscopic exam Overall: external auditory canals clear 2014 None Full Exam - General 1994 Ears/Nose/Throat otoscopic exam Overall: tympanic membranes clear 2014 None Full Exam - General 1994 Ears/Nose/Throat lips/teeth/gingiva Overall: benign lips 2014 None Full Exam - General 1994 Ears/Nose/Throat lips/teeth/gingiva Overall: normal dentition 2014 None Full Exam - General 1994 Ears/Nose/Throat oral cavity/pharynx/larynx Overall: oral mucosa clear 2014 None Full Exam - General 1994 Ears/Nose/Throat oral cavity/pharynx/larynx Overall: oropharyngeal mucosa clear 2014 None Full Exam - General 1994 Ears/Nose/Throat oral cavity/pharynx/larynx Overall: hypopharynx benign 2014 None Full Exam - General 1994 Ears/Nose/Throat oral cavity/pharynx/larynx Overall: no masses 2014 None Full Exam - General 1994 Respiratory auscultation Overall: breath sounds clear bilaterally 2014 None Full Exam - General 1994 Respiratory respiratory effort/rhythm Overall: no retractions 2014 None Full Exam - General 1994 Respiratory respiratory effort/rhythm Overall: normal rate 2014 None Full Exam - General 1994 Cardiovascular extremities Overall: no clubbing 2014 None Full Exam - General 1994 Cardiovascular auscultation of heart Overall: regular rate 2014 None Full Exam - General 1994 Cardiovascular auscultation of heart Overall: normal heart sounds 2014 None Full Exam - General 1994 Abdomen abdominal exam Overall: no tenderness 2014 None Full Exam - General 1994 Abdomen abdominal exam Overall: normal bowel sounds 2014 None Full Exam - General 1994 Abdomen abdominal exam Skin: presence of a scar 2014 - from umbilicus to suprapubic region - Full Exam - General 1994 Integument inspection of skin Overall: few scattered moles, no gross abnormalities 2014 None Full Exam - General 1994 Neurologic deep tendon reflexes Overall: deep tendon reflexes intact 2014 None Full Exam - General 1994 Neurologic cranial nerves Overall: crainial nerves 2 - 12 grossly intact 2014 None Full Exam - General 1994 Psychiatric orientation/consciousness Overall: oriented to person, place and time 2014 None Full Exam - General 1994 Psychiatric mood and affect Overall: normal mood and affect 2014 None Full Exam - General 1994 Constitutional general appearance Development: well developed 05/05/2014 None Full Exam - General 1994 Constitutional general appearance Development: appears stated age 0305/05/2014 None Full Exam - General 1994 Constitutional general appearance Hygiene/Attention to Grooming: good hygiene 05/05/2014 None Full Exam - General 1994 Eyes conjunctiva/eyelids Overall: conjunctiva clear 05/05/2014 None Full Exam - General 1994 Eyes conjunctiva/eyelids Overall: cornea clear 05/05/2014 None Full Exam - General 1994 Eyes conjunctiva/eyelids Overall: eyelids normal 05/05/2014 None Full Exam - General 1994 Eyes pupils and irises Overall: pupils equal, round, reactive to light and accomodation 05/05/2014 None Full Exam - General 1994 Ears/Nose/Throat otoscopic exam Overall: external auditory canals clear 05/05/2014 None Full Exam - General 1994 Ears/Nose/Throat otoscopic exam Overall: tympanic membranes clear 05/05/2014 None Full Exam - General 1994 Ears/Nose/Throat lips/teeth/gingiva Overall: benign lips 05/05/2014 None Full Exam - General 1994 Ears/Nose/Throat lips/teeth/gingiva Overall: normal dentition 05/05/2014 None Full Exam - General 1994 Ears/Nose/Throat oral cavity/pharynx/larynx Overall: oral mucosa clear 05/05/2014 None Full Exam - General 1994 Ears/Nose/Throat oral cavity/pharynx/larynx Overall: oropharyngeal mucosa clear 05/05/2014 None Full Exam - General 1994 Ears/Nose/Throat oral cavity/pharynx/larynx Overall: hypopharynx benign 05/05/2014 None Full Exam - General 1994 Ears/Nose/Throat oral cavity/pharynx/larynx Overall: no masses 05/05/2014 None Full Exam - General 1994 Respiratory auscultation Overall: breath sounds clear bilaterally 05/05/2014 None Full Exam - General 1994 Respiratory respiratory effort/rhythm Overall: no retractions 05/05/2014 None Full Exam - General 1994 Respiratory respiratory effort/rhythm Overall: normal rate 05/05/2014 None Full Exam - General 1994 Cardiovascular extremities Overall: no clubbing 05/05/2014 None Full Exam - General 1994 Cardiovascular auscultation of heart Overall: regular rate 05/05/2014 None Full Exam - General 1994 Cardiovascular auscultation of heart Overall: normal heart sounds 05/05/2014 None Full Exam - General 1994 Abdomen abdominal exam Overall: no tenderness 05/05/2014 None Full Exam - General 1994 Abdomen abdominal exam Overall: normal bowel sounds 05/05/2014 None Full Exam - General 1994 Abdomen abdominal exam Skin: presence of a scar 05/05/2014 - from umbilicus to suprapubic region - Full Exam - General 1994 Integument inspection of skin Overall: few scattered moles, no gross abnormalities 05/05/2014 None Full Exam - General 1994 Neurologic deep tendon reflexes Overall: deep tendon reflexes intact 05/05/2014 None Full Exam - General 1994 Neurologic cranial nerves Overall: crainial nerves 2 - 12 grossly intact 05/05/2014 None Full Exam - General 1994 Psychiatric orientation/consciousness Overall: oriented to person, place and time 05/05/2014 None Full Exam - General 1994 Psychiatric mood and affect Overall: normal mood and affect 05/05/2014 None Full Exam - General 1994 Constitutional general appearance Development: well developed 04/26/2014 None Full Exam - General 1994 Constitutional general appearance Development: appears stated age 0304/26/2014 None Full Exam - General 1994 Constitutional general appearance Hygiene/Attention to Grooming: good hygiene 04/26/2014 None Full Exam - General 1994 Eyes conjunctiva/eyelids Overall: conjunctiva clear 04/26/2014 None Full Exam - General 1994 Eyes conjunctiva/eyelids Overall: cornea clear 04/26/2014 None Full Exam - General 1994 Eyes conjunctiva/eyelids Overall: eyelids normal 04/26/2014 None Full Exam - General 1994 Eyes pupils and irises Overall: pupils equal, round, reactive to light and accomodation 04/26/2014 None Full Exam - General 1994 Ears/Nose/Throat otoscopic exam Overall: external auditory canals clear 04/26/2014 None Full Exam - General 1994 Ears/Nose/Throat otoscopic exam Overall: tympanic membranes clear 04/26/2014 None Full Exam - General 1994 Ears/Nose/Throat lips/teeth/gingiva Overall: benign lips 04/26/2014 None Full Exam - General 1994 Ears/Nose/Throat lips/teeth/gingiva Overall: normal dentition 04/26/2014 None Full Exam - General 1994 Ears/Nose/Throat oral cavity/pharynx/larynx Overall: oral mucosa clear 04/26/2014 None Full Exam - General 1994 Ears/Nose/Throat oral cavity/pharynx/larynx Overall: oropharyngeal mucosa clear 04/26/2014 None Full Exam - General 1994 Ears/Nose/Throat oral cavity/pharynx/larynx Overall: hypopharynx benign 04/26/2014 None Full Exam - General 1994 Ears/Nose/Throat oral cavity/pharynx/larynx Overall: no masses 04/26/2014 None Full Exam - General 1994 Respiratory auscultation Overall: breath sounds clear bilaterally 04/26/2014 None Full Exam - General 1994 Respiratory respiratory effort/rhythm Overall: no retractions 04/26/2014 None Full Exam - General 1994 Respiratory respiratory effort/rhythm Overall: normal rate 04/26/2014 None Full Exam - General 1994 Cardiovascular extremities Overall: no clubbing 04/26/2014 None Full Exam - General 1994 Cardiovascular auscultation of heart Overall: regular rate 04/26/2014 None Full Exam - General 1994 Cardiovascular auscultation of heart Overall: normal heart sounds 04/26/2014 None Full Exam - General 1994 Abdomen abdominal exam Overall: no tenderness 04/26/2014 None Full Exam - General 1994 Abdomen abdominal exam Overall: normal bowel sounds 04/26/2014 None Full Exam - General 1994 Abdomen abdominal exam Skin: presence of a scar 04/26/2014 - from umbilicus to suprapubic region - Full Exam - General 1994 Integument inspection of skin Overall: few scattered moles, no gross abnormalities 04/26/2014 None Full Exam - General 1994 Neurologic deep tendon reflexes Overall: deep tendon reflexes intact 04/26/2014 None Full Exam - General 1994 Neurologic cranial nerves Overall: crainial nerves 2 - 12 grossly intact 04/26/2014 None Full Exam - General 1994 Psychiatric orientation/consciousness Overall: oriented to person, place and time 04/26/2014 None Full Exam - General 1994 Psychiatric mood and affect Overall: normal mood and affect 04/26/2014 None Full Exam - General 1994 Neck inspection of neck Masses: right 04/26/2014 tender right mid neck - mildly erythematous - no induration noted - Full Exam - General 1994 Constitutional general appearance Development: appears stated age 0203/29/2014 None Full Exam - General 1994 Constitutional general appearance Development: well developed 03/29/2014 None Full Exam - General 1994 Constitutional general appearance Hygiene/Attention to Grooming: good hygiene 03/29/2014 None Full Exam - General 1994 Eyes conjunctiva/eyelids Overall: conjunctiva clear 03/29/2014 None Full Exam - General 1994 Eyes conjunctiva/eyelids Overall: cornea clear 03/29/2014 None Full Exam - General 1994 Eyes conjunctiva/eyelids Overall: eyelids normal 03/29/2014 None Full Exam - General 1994 Eyes pupils and irises Overall: pupils equal, round, reactive to light and accomodation 03/29/2014 None Full Exam - General 1994 Ears/Nose/Throat otoscopic exam Overall: external auditory canals clear 03/29/2014 None Full Exam - General 1994 Ears/Nose/Throat otoscopic exam Overall: tympanic membranes clear 03/29/2014 None Full Exam - General 1994 Ears/Nose/Throat lips/teeth/gingiva Overall: benign lips 03/29/2014 None Full Exam - General 1994 Ears/Nose/Throat lips/teeth/gingiva Overall: normal dentition 03/29/2014 None Full Exam - General 1994 Ears/Nose/Throat oral cavity/pharynx/larynx Overall: hypopharynx benign 03/29/2014 None Full Exam - General 1994 Ears/Nose/Throat oral cavity/pharynx/larynx Overall: no masses 03/29/2014 None Full Exam - General 1994 Ears/Nose/Throat oral cavity/pharynx/larynx Overall: oral mucosa clear 03/29/2014 None Full Exam - General 1994 Ears/Nose/Throat oral cavity/pharynx/larynx Overall: oropharyngeal mucosa clear 03/29/2014 None Full Exam - General 1994 Respiratory auscultation Overall: breath sounds clear bilaterally 03/29/2014 None Full Exam - General 1994 Respiratory respiratory effort/rhythm Overall: no retractions 03/29/2014 None Full Exam - General 1994 Respiratory respiratory effort/rhythm Overall: normal rate 03/29/2014 None Full Exam - General 1994 Cardiovascular extremities Overall: no clubbing 03/29/2014 None Full Exam - General 1994 Cardiovascular auscultation of heart Overall: normal heart sounds 03/29/2014 None Full Exam - General 1994 Cardiovascular auscultation of heart Overall: regular rate 03/29/2014 None Full Exam - General 1994 Abdomen abdominal exam Overall: no tenderness 03/29/2014 None Full Exam - General 1994 Abdomen abdominal exam Overall: normal bowel sounds 03/29/2014 None Full Exam - General 1994 Integument inspection of skin Overall: few scattered moles, no gross abnormalities 03/29/2014 None Full Exam - General 1994 Neurologic deep tendon reflexes Overall: deep tendon reflexes intact 03/29/2014 None Full Exam - General 1994 Neurologic cranial nerves Overall: crainial nerves 2 - 12 grossly intact 03/29/2014 None Full Exam - General 1994 Psychiatric orientation/consciousness Overall: oriented to person, place and time 03/29/2014 None Full Exam - General 1994 Psychiatric mood and affect Overall: normal mood and affect 03/29/2014 None Full Exam - General 1994 Abdomen abdominal exam Skin: presence of a scar 03/29/2014 - from umbilicus to suprapubic region - Procedures Procedure Codes Date TRIAMCINOLONE ACET INJ NOS CPT-4: J3301 11/11/2017 OCCULT BLOOD FECES CPT- 4: 64256 10/28/2017 TRIAMCINOLONE ACET INJ NOS CPT-4: J3301 11/20/2015 Vital Signs Date Vital 02/12/2018 Blood Pressure 1: 134/80 Code: 8480-6 BMI: 48.7 Code: 62695-4 Heart Rate 1: 78 bpm Height: 5'11" SpO2: 96% Weight: 349 lbs 01/28/2018 Blood Pressure 1: 140/80 Code: 8480-6 BMI: 48.3 Code: 86514-2 Heart Rate 1: 78 bpm Height: 5'11" SpO2: 94% Temperature: 36.7 (C) / 98.1 (F) Weight: 346 lbs 11/11/2017 Blood Pressure 1: 144/82 Code: 8480-6 BMI: 47.1 Code: 60677-4 Heart Rate 1: 73 bpm Height: 5'11" SpO2: 94% Temperature: 36.9 (C) / 98.5 (F) Weight: 338 lbs 10/17/2017 Blood Pressure 1: 136/78 Code: 8480-6 BMI: 47.1 Code: 27664-7 Heart Rate 1: 82 bpm Height: 5'11" SpO2: 96% Weight: 338 lbs 06/06/2017 Blood Pressure 1: 138/76 Code: 8480-6 BMI: 47.4 Code: 84536-3 Heart Rate 1: 76 bpm Height: 5'11" SpO2: 96% Weight: 340 lbs 04/11/2017 Blood Pressure 1: 142/80 Code: 8480-6 Heart Rate 1: 79 bpm Height: 5'11" SpO2: 96% 01/27/2017 Blood Pressure 1: 146/86 Code: 8480-6 BMI: 47.1 Code: 46767-6 Heart Rate 1: 97 bpm Height: 5'11" SpO2: 95% Weight: 338 lbs 12/27/2016 Blood Pressure 1: 154/74 Code: 8480-6 BMI: 48.5 Code: 39192-0 Heart Rate 1: 82 bpm Height: 5'11" SpO2: 96% Weight: 348 lbs 10/09/2016 Blood Pressure 1: 160/82 Code: 8480-6 BMI: 47.4 Code: 76643-8 Heart Rate 1: 77 bpm Height: 5'11" SpO2: 96% Weight: 340 lbs 09/09/2016 Blood Pressure 1: 140/80 Code: 8480-6 Heart Rate 1: 88 bpm Height: 5'11" SpO2: 96% Weight: 05/31/2016 Blood Pressure 1: 126/78 Code: 8480-6 BMI: 46.3 Code: 16454-4 Heart Rate 1: 75 bpm Height: 5'11" SpO2: 96% Weight: 332 lbs 03/29/2016 Blood Pressure 1: 146/78 Code: 8480-6 Heart Rate 1: 78 bpm Height: 5'11" SpO2: 97% Weight: 03/11/2016 Blood Pressure 1: 136/86 Code: 8480-6 BMI: 44.4 Code: 78042-0 Heart Rate 1: 77 bpm Height: 5'11" SpO2: 96% Weight: 318 lbs 02/23/2016 Blood Pressure 1: 146/94 Code: 8480-6 BMI: 44.4 Code: 51799-9 Heart Rate 1: 90 bpm Height: 5'11" SpO2: 93% Weight: 318 lbs 01/16/2016 Blood Pressure 1: 140/86 Code: 8480-6 BMI: 44.6 Code: 87074-3 Heart Rate 1: 75 bpm Height: 5'11" SpO2: 96% Weight: 320 lbs 12/26/2015 Blood Pressure 1: 130/78 Code: 8480-6 BMI: 43.7 Code: 33943-8 Heart Rate 1: 96 bpm Height: 5'11" SpO2: 98% Weight: 313 lbs 11/20/2015 Blood Pressure 1: 137/92 Code: 8480-6 Heart Rate 1: 84 bpm Height: SpO2: 98% Temperature: 36.7 (C) / 98.0 (F) Weight: 09/01/2015 Blood Pressure 1: 148/88 Code: 8480-6 BMI: 43.8 Code: 33586-0 Heart Rate 1: 73 bpm Height: 5'11" SpO2: 97% Weight: 314 lbs 08/09/2015 Blood Pressure 1: 138/78 Code: 8480-6 BMI: 45.0 Code: 77280-7 Heart Rate 1: 75 bpm Height: 5'11" SpO2: 98% Weight: 323 lbs 06/26/2015 Blood Pressure 1: 134/80 Code: 8480-6 BMI: 46.3 Code: 34847-9 Heart Rate 1: 78 bpm Height: 5'11" SpO2: 96% Weight: 332 lbs 11/18/2014 Blood Pressure 1: 130/78 Code: 8480-6 BMI: 44.4 Code: 44743-5 Heart Rate 1: 66 bpm Height: 5'11" SpO2: 98% Weight: 318 lbs 11/01/2014 Blood Pressure 1: 130/78 Code: 8480-6 BMI: 44.5 Code: 36338-3 Heart Rate 1: 78 bpm Height: 5'11" SpO2: 97% Weight: 319 lbs 10/27/2014 Blood Pressure 1: 152/88 Code: 8480-6 BMI: 43.9 Code: 27439-0 Heart Rate 1: 91 bpm Height: 5'11" SpO2: 98% Weight: 315 lbs 2014 Blood Pressure 1: 140/82 Code: 8480-6 BMI: 44.9 Code: 05974-0 Heart Rate 1: 78 bpm Height: 5'11" Weight: 322 lbs 05/05/2014 Blood Pressure 1: 142/88 Code: 8480-6 BMI: 40.9 Code: 85031-2 Heart Rate 1: 64 bpm Height: 5'11" Temperature: 37.3 (C) / 99.1 (F) Weight: 293 lbs 04/26/2014 Blood Pressure 1: 142/82 Code: 8480-6 BMI: 40.2 Code: 37831-4 Heart Rate 1: 64 bpm Height: 5'11" Weight: 288 lbs 03/29/2014 Blood Pressure 1: 138/84 Code: 8480-6 BMI: 39.3 Code: 14347-8 Heart Rate 1: 84 bpm Height: 5'11" Weight: 282 lbs Functional Status No Functional Status data History of Present Illness Symptom Name Status Result Effective Date Notes Location globally 02/12/2018 None Quality improving 02/12/2018 None Onset and Resolution ongoing 02/12/2018 None Alleviating Factors change in dietary habits 02/12/2018 None Pertinent Findings Denies depressed mood 02/12/2018 None Pertinent Findings Denies heartburn 02/12/2018 None Pertinent Findings Denies nausea 02/12/2018 None Pertinent Findings Denies vomiting 02/12/2018 None Quality constant 02/12/2018 None Onset and Resolution sudden in onset 02/12/2018 None Onset of Symptom during adulthood 02/12/2018 None Quality dry 02/12/2018 None Quality constant 02/12/2018 None Onset and Resolution ongoing 02/12/2018 None Location frontal sinuses 01/28/2018 None Quality fullness 01/28/2018 None Quality pressure 01/28/2018 None Onset and Resolution sudden in onset 01/28/2018 None Onset of Symptom 2 weeks ago 01/28/2018 None Frequency of Episodes daily 01/28/2018 None Location diffusely 01/28/2018 None Quality aching 01/28/2018 None Quality constant 01/28/2018 None Quality scratchy 01/28/2018 None Onset and Resolution sudden in onset 01/28/2018 None Onset of Symptom 2 weeks ago 01/28/2018 None Frequency of Episodes daily 01/28/2018 None Location both ears 01/28/2018 None Onset and Resolution gradual in onset 01/28/2018 None sinus congestion Location frontal sinuses 11/11/2017 None sinus congestion Quality constant 11/11/2017 None sinus congestion Quality fullness 11/11/2017 None sinus congestion Quality pressure 11/11/2017 None sinus congestion Onset and Resolution sudden in onset 11/11/2017 None sinus congestion Onset of Symptom 1 weeks ago 11/11/2017 None earache Location both ears 11/11/2017 None earache Onset and Resolution sudden in onset 11/11/2017 None weight gain/obesity Location globally 10/17/2017 None weight gain/obesity Quality improving 10/17/2017 None weight gain/obesity Onset and Resolution ongoing 10/17/2017 None weight gain/obesity Alleviating Factors change in dietary habits 10/17/2017 None weight gain/obesity Pertinent Findings Denies depressed mood 10/17/2017 None weight gain/obesity Pertinent Findings Denies heartburn 10/17/2017 None weight gain/obesity Pertinent Findings Denies nausea 10/17/2017 None weight gain/obesity Pertinent Findings Denies vomiting 10/17/2017 None hypertension Quality constant 10/17/2017 None hypertension Onset and Resolution sudden in onset 10/17/2017 None hypertension Onset of Symptom during adulthood 10/17/2017 None weight gain/obesity Location globally 06/06/2017 None weight gain/obesity Quality improving 06/06/2017 None weight gain/obesity Onset and Resolution ongoing 06/06/2017 None weight gain/obesity Alleviating Factors change in dietary habits 06/06/2017 None weight gain/obesity Pertinent Findings Denies depressed mood 06/06/2017 None weight gain/obesity Pertinent Findings Denies heartburn 06/06/2017 None weight gain/obesity Pertinent Findings Denies nausea 06/06/2017 None weight gain/obesity Pertinent Findings Denies vomiting 06/06/2017 None hypertension Quality constant 06/06/2017 None hypertension Onset and Resolution sudden in onset 06/06/2017 None hypertension Onset of Symptom during adulthood 06/06/2017 None blood pressure followup Onset and Resolution ongoing 04/11/2017 None blood pressure followup Onset of Symptom during adulthood 04/11/2017 None blood pressure followup Blood Pressure Values pt checking blood pressure at home, did not bring in to clinic 04/11/2017 None blood pressure followup Severity mild 04/11/2017 None blood pressure followup Frequency of Episodes decreasing 04/11/2017 None blood pressure followup Pertinent Findings Denies anxiety 04/11/2017 None blood pressure followup Pertinent Findings Denies decreased energy 04/11/2017 None blood pressure followup Pertinent Findings Denies dizziness 04/11/2017 None blood pressure followup Pertinent Findings dyspnea 04/11/2017 exertion blood pressure followup Pertinent Findings Denies edema 04/11/2017 None weight gain/obesity Location globally 04/11/2017 None weight gain/obesity Quality improving 04/11/2017 None weight gain/obesity Onset and Resolution ongoing 04/11/2017 None weight gain/obesity Alleviating Factors change in dietary habits 04/11/2017 None weight gain/obesity Pertinent Findings Denies depressed mood 04/11/2017 None weight gain/obesity Pertinent Findings Denies heartburn 04/11/2017 None weight gain/obesity Pertinent Findings Denies nausea 04/11/2017 None weight gain/obesity Pertinent Findings Denies vomiting 04/11/2017 None blood pressure followup Onset and Resolution ongoing 01/27/2017 None blood pressure followup Onset of Symptom during adulthood 01/27/2017 None blood pressure followup Pertinent Findings Denies dizziness 01/27/2017 None blood pressure followup Pertinent Findings dyspnea 01/27/2017 exertion blood pressure followup Pertinent Findings Denies edema 01/27/2017 None blood pressure followup Pertinent Findings Denies decreased energy 01/27/2017 None blood pressure followup Pertinent Findings Denies anxiety 01/27/2017 None blood pressure followup Severity mild 01/27/2017 None blood pressure followup Blood Pressure Values pt checking blood pressure at home, did not bring in to clinic 01/27/2017 None weight gain/obesity Location globally 01/27/2017 None weight gain/obesity Quality improving 01/27/2017 None weight gain/obesity Onset and Resolution ongoing 01/27/2017 None weight gain/obesity Pertinent Findings Denies depressed mood 01/27/2017 None weight gain/obesity Pertinent Findings Denies heartburn 01/27/2017 None weight gain/obesity Pertinent Findings Denies vomiting 01/27/2017 None weight gain/obesity Pertinent Findings Denies nausea 01/27/2017 None weight gain/obesity Alleviating Factors change in dietary habits 01/27/2017 None blood pressure followup Frequency of Episodes decreasing 01/27/2017 None hand pain Location on the right 12/27/2016 right wrist hand pain Quality chronic 12/27/2016 None hand pain Onset of Symptom 3 months ago 12/27/2016 None hand pain Frequency of Episodes daily 12/27/2016 None hand pain Limitation on Activities does not limit activities 12/27/2016 None hand pain Pertinent Findings pain with movement 12/27/2016 None hand pain Pertinent Findings tingling 12/27/2016 None hand pain Onset and Resolution ongoing 12/27/2016 None hand pain Severity mild 12/27/2016 None hand pain Mechanism of injury unknown 12/27/2016 None hand pain Sports Participation not significant 12/27/2016 None rash Location-Major on the upper body 10/09/2016 None rash Location-Major on the lower body 10/09/2016 None rash Color red 10/09/2016 None rash Onset and Resolution ongoing 10/09/2016 None hand pain Location on the right 09/09/2016 None hand pain Quality chronic 09/09/2016 None hand pain Onset of Symptom 3 months ago 09/09/2016 None hand pain Frequency of Episodes daily 09/09/2016 None hand pain Limitation on Activities does not limit activities 09/09/2016 None hand pain Pertinent Findings pain with movement 09/09/2016 None hand pain Pertinent Findings tingling 09/09/2016 None rash Location-Major on the feet 09/09/2016 right foot rash Onset of Symptom 1 days ago 09/09/2016 None rash Onset and Resolution sudden in onset 09/09/2016 None rash Pertinent Findings Denies itching 09/09/2016 None rash Pertinent Findings Denies pain 09/09/2016 None pain Location-Major in a generalized area 05/31/2016 None pain Triggers no known triggers 05/31/2016 None pain Pertinent Findings pain 05/31/2016 None pain Alleviating Factors rest 05/31/2016 None pain Prior Treatments previously treated 05/31/2016 naproxen, states he can't take it now pain Severity moderate 05/31/2016 None pain Limitation on Activities moderately limits activities 05/31/2016 None Hospital Follow Up _ blood clots 03/29/2016 None Hospital Follow Up Location both legs and lung 03/29/2016 None Hospital Follow Up Onset of Symptom 2 weeks ago 03/29/2016 None Hospital Follow Up Pertinent Findings pain 03/29/2016 states pain in left ankle intermittent, dull ache constipation Quality chronic 03/29/2016 None constipation Onset and Resolution improving 03/29/2016 None constipation Onset of Symptom 3 years ago 03/29/2016 None constipation Alleviating Factors laxatives 03/29/2016 None constipation Alleviating Factors medication 03/29/2016 None constipation Pertinent Findings heartburn 03/29/2016 None constipation Pertinent Findings medication use 03/29/2016 None constipation Pertinent Findings Denies weight loss 03/29/2016 None constipation Pertinent Findings Denies adequate oral intake 03/29/2016 None constipation Triggers no known associated factors 03/29/2016 None constipation Severity moderate 03/29/2016 None constipation Frequency of Episodes decreasing 03/29/2016 using stool softeners Hospital Follow Up _ blood clots 03/11/2016 None Hospital Follow Up Location both legs and lung 03/11/2016 None Hospital Follow Up Onset of Symptom 2 weeks ago 03/11/2016 None cough Location in the lung 03/11/2016 None cough Quality acute 03/11/2016 recent bronchitis, bilateral DVT, PE cough Onset and Resolution ongoing 03/11/2016 None cough Onset of Symptom _ days ago 03/11/2016 None cough Limitation on Activities does not limit activities 03/11/2016 None cough Frequency of Episodes decreasing 03/11/2016 None cough Significant Medical Conditions pulmonary disease 03/11/2016 None cough Significant Medical Conditions cardiac disease 03/11/2016 None cough Triggers no known associated factors 03/11/2016 None cough Pertinent Findings Denies dyspnea 03/11/2016 improved sinus congestion Location on both sides 02/23/2016 None sinus congestion Quality constant 02/23/2016 None sinus congestion Quality fullness 02/23/2016 None sinus congestion Quality pressure 02/23/2016 None sinus congestion Quality pain 02/23/2016 None sinus congestion Onset and Resolution sudden in onset 02/23/2016 None sinus congestion Onset of Symptom 1 weeks ago 02/23/2016 None sinus congestion Frequency of Episodes daily 02/23/2016 None sinus congestion Pertinent Findings cough 02/23/2016 None sinus congestion Pertinent Findings hoarseness 02/23/2016 None Hospital Follow Up _ Other: respitory 02/23/2016 None Hospital Follow Up Quality constant 02/23/2016 None Post-op wound Procedure Performed 01/1001/16/2016 None Post-op wound General Recovery well 01/16/2016 None Post-op wound Pertinent Findings Denies pain 01/16/2016 None Post-op wound Pertinent Findings Denies fever 01/16/2016 None hypertension Quality chronic 12/26/2015 None hypertension Onset and Resolution ongoing 12/26/2015 None hypertension Onset of Symptom during adulthood 12/26/2015 None hypertension Severity mild 12/26/2015 None hypertension Alleviating Factors medication 12/26/2015 None hypertension Exacerbating Factors stress 12/26/2015 None hypertension Pertinent Findings Denies dizziness 12/26/2015 None hypertension Pertinent Findings Denies dyspnea 12/26/2015 None hypertension Pertinent Findings edema 12/26/2015 None hypertension Blood Pressure Values patient checking blood pressure at home - did not bring in readings 12/26/2015 "not often" sinus congestion Onset and Resolution ongoing 11/20/2015 None sinus congestion Onset of Symptom 4 days ago 11/20/2015 None sinus congestion Severity moderate 11/20/2015 None sinus congestion Frequency of Episodes increasing 11/20/2015 None sinus congestion Significant Medical Conditions allergic rhinitis 11/20/2015 None sinus congestion Triggers no known associated factors 11/20/2015 None sinus congestion Location on both sides 11/20/2015 None sinus congestion Quality acute 11/20/2015 None sinus congestion Pertinent Findings cough 11/20/2015 None sinus congestion Pertinent Findings decreased energy level 11/20/2015 None sinus congestion Pertinent Findings Denies fever 11/20/2015 None rash Location-Extremities on the left arm 09/01/2015 None rash Location-Extremities on the right arm 09/01/2015 None rash Color red 09/01/2015 None rash Onset and Resolution sudden in onset 09/01/2015 None rash Onset of Symptom 2 days ago 09/01/2015 None rash Triggers no known triggers 09/01/2015 None hypertension Quality chronic 08/09/2015 None hypertension Onset and Resolution ongoing 08/09/2015 None hypertension Onset of Symptom during adulthood 08/09/2015 None hypertension Severity mild 08/09/2015 None hypertension Triggers no known associated factors 08/09/2015 None hypertension Alleviating Factors medication 08/09/2015 None hypertension Exacerbating Factors stress 08/09/2015 None hypertension Pertinent Findings Denies dizziness 08/09/2015 None hypertension Pertinent Findings Denies dyspnea 08/09/2015 None hypertension Blood Pressure Values not checking blood pressure at home 08/09/2015 None hypertension Quality chronic 06/26/2015 None hypertension Severity mild 06/26/2015 None hypertension Triggers no known associated factors 06/26/2015 None hypertension Alleviating Factors medication 06/26/2015 None hypertension Exacerbating Factors stress 06/26/2015 None hypertension Pertinent Findings Denies dyspnea 06/26/2015 None hypertension Pertinent Findings edema 06/26/2015 None hypertension Onset and Resolution ongoing 06/26/2015 None hypertension Onset of Symptom during adulthood 06/26/2015 None hypertension Pertinent Findings Denies dizziness 06/26/2015 None shoulder pain Location on the right shoulder 06/26/2015 None shoulder pain Location on the left shoulder 06/26/2015 None shoulder pain Quality aching 06/26/2015 None hypertension Quality chronic 11/18/2014 None hypertension Onset of Symptom _ years ago 11/18/2014 None hypertension Severity mild 11/18/2014 None hypertension Triggers no known associated factors 11/18/2014 None hypertension Alleviating Factors medication 11/18/2014 None hypertension Exacerbating Factors stress 11/18/2014 None hypertension Pertinent Findings Denies dyspnea 11/18/2014 None hypertension Pertinent Findings Denies edema 11/18/2014 None Hospital Follow Up _ Other: small bowel obstruction 11/18/2014 None Hospital Follow Up Location colon 11/18/2014 None Hospital Follow Up Onset of Symptom 2 weeks ago 11/18/2014 None abdominal pain Location in the periumbilical area 11/18/2014 None abdominal pain Quality improving 11/18/2014 pain resolved abdominal pain Limitation on Activities does not limit activities 11/18/2014 None abdominal pain Frequency of Episodes decreasing 11/18/2014 None abdominal pain Triggers no known associated factors 11/18/2014 None abdominal pain Alleviating Factors rest 11/18/2014 None abdominal pain Pertinent Findings Denies abdominal distension 11/18/2014 None abdominal pain Pertinent Findings Denies bloating 11/18/2014 None abdominal pain Pertinent Findings Denies cough 11/18/2014 None abdominal pain Pertinent Findings Denies edema 11/18/2014 None Hospital Follow Up Quality acute illness 11/18/2014 None Hospital Follow Up Onset and Resolution ongoing 11/18/2014 None Hospital Follow Up Significant Medical Conditions acute illness 11/18/2014 None Hospital Follow Up Alleviating Factors rest 11/18/2014 None Hospital Follow Up Pertinent Findings Denies pain 11/18/2014 None Hospital Follow Up Pertinent Findings Denies fever 11/18/2014 None hypertension Quality chronic 11/01/2014 None hypertension Onset of Symptom _ years ago 11/01/2014 None hypertension Severity mild 11/01/2014 None hypertension Triggers no known associated factors 11/01/2014 None hypertension Alleviating Factors medication 11/01/2014 None hypertension Exacerbating Factors stress 11/01/2014 None hypertension Pertinent Findings Denies dyspnea 11/01/2014 None hypertension Pertinent Findings Denies edema 11/01/2014 None weight gain/obesity Location globally 11/01/2014 None diarrhea Quality constant 11/01/2014 None diarrhea Quality loose 11/01/2014 None diarrhea Quality watery 11/01/2014 None diarrhea Onset and Resolution ongoing 11/01/2014 None diarrhea Onset of Symptom 2 weeks ago 11/01/2014 None diarrhea Limitation on Activities moderately limits activities 11/01/2014 None diarrhea Frequency of Episodes 6-8 stools per day 11/01/2014 None diarrhea Frequency of Episodes daily 11/01/2014 None diarrhea Length of Episodes 2 weeks 11/01/2014 None diarrhea Timing of Episodes no specific time 11/01/2014 None diarrhea Triggers no known associated factors 11/01/2014 None diarrhea Alleviating Factors medication 11/01/2014 None abdominal pain Location diffusely 11/01/2014 None abdominal pain Radiating the umbilicus 11/01/2014 None abdominal pain Quality burning 11/01/2014 None abdominal pain Quality constant 11/01/2014 None abdominal pain Quality cramping 11/01/2014 None abdominal pain Quality sharp 11/01/2014 None abdominal pain Quality worsening 11/01/2014 None abdominal pain Onset and Resolution ongoing 11/01/2014 None abdominal pain Limitation on Activities moderately limits activities 11/01/2014 None abdominal pain Onset of Symptom 3 weeks ago 11/01/2014 None hypertension Quality chronic 10/27/2014 None hypertension Onset of Symptom _ years ago 10/27/2014 None hypertension Severity mild 10/27/2014 None hypertension Triggers no known associated factors 10/27/2014 None hypertension Alleviating Factors medication 10/27/2014 None hypertension Exacerbating Factors stress 10/27/2014 None hypertension Pertinent Findings Denies dyspnea 10/27/2014 None hypertension Pertinent Findings Denies edema 10/27/2014 None weight gain/obesity Location globally 10/27/2014 None diarrhea Quality constant 10/27/2014 None diarrhea Quality loose 10/27/2014 None diarrhea Quality watery 10/27/2014 None diarrhea Onset and Resolution ongoing 10/27/2014 None diarrhea Onset of Symptom 2 weeks ago 10/27/2014 None diarrhea Limitation on Activities moderately limits activities 10/27/2014 None diarrhea Frequency of Episodes 6-8 stools per day 10/27/2014 None diarrhea Frequency of Episodes daily 10/27/2014 None diarrhea Length of Episodes 2 weeks 10/27/2014 None diarrhea Timing of Episodes no specific time 10/27/2014 None diarrhea Triggers no known associated factors 10/27/2014 None diarrhea Alleviating Factors medication 10/27/2014 None hypertension Quality chronic 2014 None hypertension Onset of Symptom _ years ago 2014 None hypertension Severity mild 2014 None hypertension Triggers no known associated factors 2014 None hypertension Alleviating Factors medication 2014 None hypertension Exacerbating Factors stress 2014 None hypertension Pertinent Findings Denies dyspnea 2014 None hypertension Pertinent Findings Denies edema 2014 None weight gain/obesity Location globally 2014 None urinary frequency Quality acute 05/05/2014 None urinary frequency Onset of Symptom _ days ago 05/05/2014 reports that he has gone three times this morning, one episode of visible blood and tissue urinary frequency Pertinent Findings Denies bladder pain 05/05/2014 None urinary frequency Pertinent Findings back pain 05/05/2014 reports he has had back surgery so he always has a small amount of back pain urinary frequency Onset and Resolution ongoing 05/05/2014 None urinary frequency Limitation on Activities does not limit activities 05/05/2014 None urinary frequency Frequency of Episodes increasing 05/05/2014 None urinary frequency Triggers no known associated factors 05/05/2014 None hypertension Quality chronic 04/26/2014 None hypertension Onset of Symptom _ years ago 04/26/2014 None hypertension Severity mild 04/26/2014 None hypertension Triggers no known associated factors 04/26/2014 None hypertension Alleviating Factors medication 04/26/2014 None hypertension Exacerbating Factors stress 04/26/2014 None hypertension Pertinent Findings Denies dyspnea 04/26/2014 None hypertension Pertinent Findings Denies edema 04/26/2014 None abdominal pain Quality intermittent 04/26/2014 reports that he eats a lot of fiber, not sure if it is due to this abdominal pain Location in the periumbilical area 04/26/2014 around old incision site hypertension Onset of Symptom _ years ago 03/29/2014 None hypertension Pertinent Findings Denies dyspnea 03/29/2014 None hypertension Pertinent Findings Denies edema 03/29/2014 None abdominal pain Quality intermittent 03/29/2014 reports that he eats a lot of fiber, not sure if it is due to this hypertension Quality chronic 03/29/2014 None hypertension Severity mild 03/29/2014 None hypertension Triggers no known associated factors 03/29/2014 None hypertension Alleviating Factors medication 03/29/2014 None hypertension Exacerbating Factors stress 03/29/2014 None Advance Directives No Advance Directive data Encounters Encounter Performer Location Codes Date ([id number]) Miscellaneous no charge Diagnosis: Encounter for removal of sutures[ICD10: Z48.02] Betty Salamanca MD, [facility] CPT-4: 11287 07/21/2018 [id number] EST. PATIENT, LEVEL IV Diagnosis: Essential (primary) hypertension[ICD10: I10] Diagnosis: Epilepsy, unspecified, not intractable, without status epilepticus[ICD10: G40.909] Diagnosis: Cough[ICD10: R05] Diagnosis: Other allergic rhinitis[ICD10: J30.89] Elsie Salamanca MD, [facility] CPT- 4: 41772 02/12/2018 [id number] EST. PATIENT, LEVEL III Diagnosis: Acute laryngopharyngitis[ICD10: J06.0] Diagnosis: Other allergic rhinitis[ICD10: J30.89] Diagnosis: Encounter for therapeutic drug level monitoring[ICD10: Z51.81] Elsie Salamanca MD, [facility] CPT-4: 36069 01/28/2018 [id number] EST. PATIENT, LEVEL III Diagnosis: Other acute sinusitis[ICD10: J01.80] Diagnosis: Other allergic rhinitis[ICD10: J30.89] Diagnosis: Cough[ICD10: R05] Elsie Salamanca MD, [facility] CPT-4: 31878 11/11/2017 16666 EST. PATIENT, LEVEL IV Diagnosis: Essential (primary) hypertension[ICD10: I10] Diagnosis: Epilepsy, unspecified, not intractable, without status epilepticus[ICD10: G40.909] Elsie Salamanca MD, [facility] CPT-4: 00521 10/17/2017 [id number] EST. PATIENT, LEVEL IV Diagnosis: Essential (primary) hypertension[ICD10: I10] Diagnosis: Epilepsy, unspecified, not intractable, without status epilepticus[ICD10: G40.909] Elsie Salamanca MD, [facility] CPT-4: 00311 06/06/2017 [id number] EST. PATIENT, LEVEL IV Diagnosis: Essential (primary) hypertension[ICD10: I10] Diagnosis: Epilepsy, unspecified, not intractable, without status epilepticus[ICD10: G40.909] Elsie Salamanca MD, [facility] CPT-4: 18482 04/11/2017 ([id number]) 66431 EST. PATIENT, LEVEL III Diagnosis: Essential (primary) hypertension[ICD10: I10] Diagnosis: Epilepsy, unspecified, not intractable, without status epilepticus[ICD10: G40.909] Leelee Salamanca MD, [facility] CPT-4: 76684 01/27/2017 ([id number]) 27490 EST. PATIENT, LEVEL IV Diagnosis: Essential (primary) hypertension[ICD10: I10] Diagnosis: Epilepsy, unspecified, not intractable, without status epilepticus[ICD10: G40.909] Diagnosis: Pain in right wrist[ICD10: M25.531] Leelee Salamanca MD, [facility] CPT-4: 30552 12/27/2016 47013 EST. PATIENT, LEVEL III Diagnosis: Rash and other nonspecific skin eruption[ICD10: R21] lEsie Salamanca MD, [facility] CPT-4: 63128 10/09/2016 ([id number]) 56153 EST. PATIENT, LEVEL III Diagnosis: Carpal tunnel syndrome, right upper limb[ICD10: G56.01] Diagnosis: Olecranon bursitis, right elbow[ICD10: M70.21] Betty Salamanca MD, [facility] CPT-4: 61312 09/09/2016 ([id number]) 03640 EST. PATIENT, LEVEL III Diagnosis: Essential (primary) hypertension[ICD10: I10] Diagnosis: Low back pain[ICD10: M54.5] Leelee Salamanca MD, [facility] CPT-4: 88932 05/31/2016 ([id number]) 87550 EST. PATIENT, LEVEL III Diagnosis: Essential (primary) hypertension[ICD10: I10] Diagnosis: Slow transit constipation[ICD10: K59.01] Leelee Salamanca MD, [facility] CPT-4: 04915 03/29/2016 ([id number]) 12263 EST. 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 PATIENT, LEVEL III Diagnosis: Acute laryngopharyngitis[ICD10: J06.0] Diagnosis: Other allergic rhinitis[ICD10: J30.89] Diagnosis: Cough[ICD10: R05] Diagnosis: Wheezing[ICD10: R06.2] Elsie Salamanca MD, [facility] CPT-4: 50536 02/23/2016 ([id number]) 01918 EST. PATIENT, LEVEL III Diagnosis: Epilepsy, unspecified, not intractable, without status epilepticus[ICD10: G40.909] Betty Salamanca MD, [facility] CPT-4: 75848 01/16/2016 ([id number]) 02456 EST. PATIENT, LEVEL IV Diagnosis: Essential (primary) hypertension[ICD10: I10] Diagnosis: Morbid (severe) obesity due to excess calories[ICD10: E66.01] Diagnosis: Epilepsy, unspecified, not intractable, without status epilepticus[ICD10: G40.909] Betty Salamanca MD, [facility] CPT-4: 30977 12/26/2015 ([id number]) 52142 EST. PATIENT, LEVEL III Diagnosis: Allergic rhinitis due to pollen[ICD10: J30.1] Diagnosis: Acute upper respiratory infection, unspecified[ICD10: J06.9] Leelee Salamanca MD, [facility] CPT-4: 16022 11/20/2015 17747 EST. 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 PATIENT, LEVEL IV Diagnosis: Epilepsy, unspecified, not intractable, without status epilepticus[ICD10: G40.909] Diagnosis: Essential (primary) hypertension[ICD10: I10] Diagnosis: First degree hemorrhoids[ICD10: K64.0] Diagnosis: Low back pain[ICD10: M54.5] Betty Salamanca MD, [facility] CPT-4: 53159 08/09/2015 ([id number]) 60739 EST. PATIENT, LEVEL IV Diagnosis: Essential (primary) hypertension[ICD10: I10] Diagnosis: Morbid (severe) obesity due to excess calories[ICD10: E66.01] Diagnosis: Epilepsy, unspecified, not intractable, without status epilepticus[ICD10: G40.909] [facility] CPT-4: 57676 06/26/2015 ([id number]) 90589 EST. PATIENT, LEVEL IV Diagnosis: ESSENTIAL HYPERTENSION[ICD9: 401.9] Diagnosis: Small bowel obstruction[ICD9: 560.9] Diagnosis: Hospital discharge follow-up[ICD9: V67.59] [facility] CPT-4: 25371 11/18/2014 ([id number]) 80577 EST. PATIENT, LEVEL III Diagnosis: Diarrhea[ICD9: 787.91] Diagnosis: Abdominal pain[ICD9: 789.00] [facility] CPT-4: 09155 11/01/2014 ([id number]) 29024 EST. PATIENT, LEVEL III Diagnosis: ESSENTIAL HYPERTENSION[ICD9: 401.9] Diagnosis: Diarrhea[ICD9: 787.91] [facility] CPT-4: 90276 10/27/2014 ([id number]) 19378 EST. PATIENT, LEVEL IV Diagnosis: Factor V Leiden mutation[ICD9: 289.81] Diagnosis: Hx of deep venous thrombosis[ICD9: V12.51] Diagnosis: ESSENTIAL HYPERTENSION[ICD9: 401.9] Diagnosis: OBESITY[ICD9: 278.00] [facility] CPT-4: 94696 2014 ([id number]) 39741 EST. PATIENT, LEVEL III Diagnosis: Hematuria[ICD9: 599.70] Diagnosis: LONG-TERM USE ANTICOAGUL[ICD9: V58.61] [facility] CPT-4: 07241 05/05/2014 ([id number]) 40252 EST. PATIENT, LEVEL IV Diagnosis: ESSENTIAL HYPERTENSION[ICD9: 401.9] Diagnosis: LONG-TERM USE ANTICOAGUL[ICD9: V58.61] Diagnosis: MORBID OBESITY[ICD9: 278.01] Diagnosis: Abscess and cellulitis[ICD9: 682.9] [facility] CPT- 4: 61879 04/26/2014 ([id number]) OFFICE VISIT, NEW - LEVEL 4 Diagnosis: ESSENTIAL HYPERTENSION[ICD9: 401.9] Diagnosis: LONG-TERM USE ANTICOAGUL[ICD9: V58.61] [facility] CPT-4: 10409 03/29/2014 Plan of Care Planned Activity Notes Codes Status Date Patient Education: Patient Medication Summary Completed 07/21/2018 Visit Plan: Hypertension - continue with current medications, continue with no added salt diet. Pt has been encouraged to exercise daily. The pt has been advised to call the office if there are any acute concerns about change in blood pressure readings at home. Epilepsy- controlled, no changes, continue to monitor Obesity - chronic issue with this patient. The pt has been counseled about diet changes, calorie restriction, and need to exercise. Pt will RTC in one month for weight check. Allergies - chronic - recommended pt to use allergy medication as prescribed. Pt has been counseled as to the appropriate use of the medication. Pt to call if allergy symptoms are not controlled with the medication. If using nasal spray, instructions as follows: Nasal spray- use twice daily, one spray per nostril twice daily, after 30 minutes, rinse out nose with saline spray.. Use opposite hand per nostril to spray in the nasal steroid allergy spray. 02/12/2018 Appointment: Elsie Mosquera WPtel: [address] [place], [place] [id number] (15 min) Moderate 02/12/2018 Patient Education: Patient Medication Summary Completed 02/12/2018 Patient Education: Hypertension Completed 02/12/2018 Visit Plan: URI - Pt advised to increase fluids, vitamin C. Discussed natural and expected course of this diagnosis and need to alert me if symptoms do not follow expected course, or if any worse. RX sent to patient's pharmacy. Allergies - chronic - recommended pt to use allergy medication as prescribed. Pt has been counseled as to the appropriate use of the medication. Pt to call if allergy symptoms are not controlled with the medication. If using nasal spray, instructions as follows: Nasal spray- use twice daily, one spray per nostril twice daily, after 30 minutes, rinse out nose with saline spray.. Use opposite hand per nostril to spray in the nasal steroid allergy spray. 01/28/2018 Appointment: Elsie Mosqurea WPtel: [address] [place], [place] [phone] (15 min) Moderate 01/28/2018 Patient Education: Patient Medication Summary Completed 01/28/2018 Care Plan: Comp Metabolic Pending 01/28/2018 Care Plan: Cbc With Differential Pending 01/28/2018 Care Plan: Dilantin Pending 01/28/2018 Patient Education: Patient Medication Summary Completed 11/25/2017 Care Plan: Iron Pending 11/25/2017 Care Plan: Ferritin Pending 11/25/2017 Care Plan: Tibc Pending 11/25/2017 Visit Plan: Sinusitis - Pt has acute infection - pain in face, maxillary region, Pt informed to use decongestant, RX given to patient, sinus rinses also recommended. Call if symptoms do not show improvement. Allergies - chronic - recommended pt to use allergy medication as prescribed. Pt has been counseled as to the appropriate use of the medication. Pt to call if allergy symptoms are not controlled with the medication. If using nasal spray, instructions as follows: Nasal spray- use twice daily, one spray per nostril twice daily, after 30 minutes, rinse out nose with saline spray.. Use opposite hand per nostril to spray in the nasal steroid allergy spray. 11/11/2017 Visit Plan: Sinusitis - Pt has acute infection - pain in face, maxillary region, Pt informed to use decongestant, RX given to patient, sinus rinses also recommended. Call if symptoms do not show improvement. Allergies - chronic - recommended pt to use allergy medication as prescribed. Pt has been counseled as to the appropriate use of the medication. Pt to call if allergy symptoms are not controlled with the medication. If using nasal spray, instructions as follows: Nasal spray- use twice daily, one spray per nostril twice daily, after 30 minutes, rinse out nose with saline spray.. Use opposite hand per nostril to spray in the nasal steroid allergy spray. 11/11/2017 Appointment: Elsie Mosquera WPtel: [phone] [facility] (15 min) Moderate 11/11/2017 Patient Education: Patient Medication Summary Completed 11/11/2017 Appointment: Lab Draw 10/28/2017 Patient Education: Patient Medication Summary Completed 10/28/2017 Patient Education: Patient Medication Summary Completed 10/20/2017 Care Plan: Tsh Pending 10/20/2017 Care Plan: Lipid Pending 10/20/2017 Care Plan: Total Psa Pending 10/20/2017 Care Plan: Dilantin Pending 10/20/2017 Care Plan: Cbc With Differential Pending 10/20/2017 Care Plan: Comp Metabolic Pending 10/20/2017 Visit Plan: Hypertension - continue with current medications, continue with no added salt diet. Pt has been encouraged to exercise daily. The pt has been advised to call the office if there are any acute concerns about change in blood pressure readings at home. Epilepsy- controlled, no changes, continue to monitor Obesity - chronic issue with this patient. The pt has been counseled about diet changes, calorie restriction, and need to exercise. Pt will RTC in one month for weight check. 10/17/2017 Appointment: Elsie Mosqueratel: [facility] (15 min) Moderate 10/17/2017 Patient Education: Patient Medication Summary Completed 10/17/2017 Appointment: Elsie Mosquera WPtel: [phone] [facility] (15 min) Moderate 10/07/2017 Care Plan: BMI Above normal followup SELF-MGMT EDUC & TRAIN 1 PT Pending 06/09/2017 Visit Plan: Hypertension - improved - continue with current medications, continue with no added salt diet. Pt has been encouraged to exercise daily. The pt has been advised to call the office if there are any [place] concerns about change in blood pressure readings at home. Epilepsy- controlled, no changes, continue to monitor Obesity - chronic issue with this patient. The pt has been counseled about diet changes, calorie restriction, and need to exercise. Pt will RTC in one month for weight check. 06/06/2017 App[facility]ment[phone] ([facility] min[facility] 06/06/2017 Patient Education: Patient Medication Summary Completed 06/06/2017 Patient Education: Obesity Completed 06/06/2017 Care Plan: BMI Above normal followup SELF-MGMT EDUC & TRAIN 1 PT Pending 04/13/2017 Visit Plan: Hypertension - improved - continue with current medications, continue with no added salt diet. Pt has been encouraged to exercise daily. The pt has been advised to call the office if there are any [place] concerns about change in blood pressure readings at home. Epilepsy- controlled, no changes, continue to monitor Obesity - chronic issue with this patient. The pt has been counseled about diet changes, calorie restriction, and need to exercise. Pt will RTC in one month for weight check. 04/11/2017 Appointment: [phone] ([facility] min) Complex 04/11/2017 Patient Education: Patient Medication Summary Completed 04/11/2017 Patient Education: Obesity Completed 04/11/2017 Appointment: [phone] [facility] [place] (30 min) Complex 04/01/2017 Visit Plan: Hypertension - improved - continue with current medications, continue with no added salt diet. Pt has been encouraged to exercise daily. The pt has been advised to call the office if there are any [place] concerns about change in blood pressure readings at home. Obesity-lost 10#- continue diet/exercise Epilepsy-check dilantin level 01/27/2017 Appointment: [phone] [place] (30 min) Complex 01/27/2017 Patient Education: Patient Medication Summary Completed 01/27/2017 Patient Education: Obesity Completed 01/27/2017 Patient Education: Hypertension Completed 01/27/2017 Care Plan: Dilantin Pending 01/27/2017 Care Plan: Comp Metabolic Pending 01/27/2017 Visit Plan: Hypertension - not well controlled - continue with current medications -recommend increasing medication but patient wants to work on diet/exercise x 1 month, continue with no added salt diet. Pt has been encouraged to exercise daily. The pt has been advised to call the office if there are any acute concerns about change in blood pressure readings at home. Epilepsy-due for labs-patient to get labs at next appt Right wrist pain-refer to Dr Ordaz 12/27/2016 Appointment: Leelee Weinstein WPtel: [phone] (30 min) Complex 12/27/2016 Patient Education: Patient Medication Summary Completed 12/27/2016 Care Plan: Referral Order SNOMED-CT : [id number] Pending 12/27/2016 Visit Plan: Rash - pt is to use topical treatments as directed. Pt is cleanse clothing in hot water with soap, and call if symptoms do not improve or if they worsen or with any change in symptoms, increase in size of the lesion, increase in pain, worsening redness, warmth, discharge. Left arm lipoma - pt is to notify clinic if it changes, becomes tender, red, warm to the touch, or with any changes or concerns and will order US. 10/09/2016 Patient Education: Patient Medication Summary Completed 10/09/2016 Patient Education: Obesity Completed 10/09/2016 Appointment: Leelee Weinstein WPtel: [phone] (30 min) Complex 10/04/2016 Visit Plan: on the rash on your foot, use benadryl cream mixed with cortisone cream - use a jerica size portion of both Carpal tunnel -wear a carpal tunnel brace at night and a tennis elbow brace during the day use aspercreme on your elbow and wrist at least twice a day 09/09/2016 Appointment: Betty Salamanca WPtel: [address] [place], [place] [phone] (15 min) Moderate 09/09/2016 Patient Education: Patient Medication Summary Completed 09/09/2016 Visit Plan: Hypertension - well controlled - continue with current medications, continue with no added salt diet. Pt has been encouraged to exercise daily. The pt has been advised to call the office if there are any acute concerns about change in blood pressure readings at home. Low back pain- the patient was instructed in appropriate posture, need for weight loss to alleviate abdominal obesity that is worsening the patient's back pain.. The pt is to use prn antiinflammatories to manage acute pain. The patient is to call the office if the pain is worsening or does not improve. 05/31/2016 Appointment: Leelee Weinstein WPtel: [phone] [phone] (30 min) Complex 05/31/2016 Patient Education: Patient Medication Summary Completed 05/31/2016 Patient Education: Obesity Completed 05/31/2016 Patient Education: Hypertension Completed 05/31/2016 Appointment: Leelee Weinstein WPtel: [phone] [phone] (30 min) Complex 04/01/2016 Visit Plan: Hypertension - well controlled - continue with current medications, continue with no added salt diet. Pt has been encouraged to exercise daily. The pt has been advised to call the office if there are any acute concerns about change in blood pressure readings at home. Constipation- reassured Panda that he does not have a bowel obstruction-normal formed BMs the last 2 days-no abdominal pain-good bowel sounds-instructed adequate water and fiber intake and to call if symptoms uncontrolled-patient verbalized understanding of plan. 03/29/2016 Appointment: Leelee Weinstein WPtel: [phone] [phone] [place] (15 min) Moderate 03/29/2016 Patient Education: Patient Medication Summary Completed 03/29/2016 Patient Education: Hypertension Completed 03/29/2016 Visit Plan: Bilateral -hospital follow up-on xarelto-symptoms improving Owzas-atxoaybyxj-kgjlpmxs-continue symbicort twice daily as directed Hypertension - well controlled - continue with current medications, continue with no added salt diet. Pt has been encouraged to exercise daily. The pt has been advised to call the office if there are any acute concerns about change in blood pressure readings at home. 03/11/2016 Appointment: Leelee Weinstein WPtel: [phone] [phone] (30 min) Complex 03/11/2016 Patient Education: Patient Medication Summary Completed 03/11/2016 Patient Education: Obesity Completed 03/11/2016 Visit Plan: URI - Pt advised to increase fluids, vitamin C. Discussed natural and expected course of this diagnosis and need to alert me if symptoms do not follow expected course, or if any worse. RX sent to patient's pharmacy. Allergies - chronic - recommended pt to use allergy medication as prescribed. Pt has been counseled as to the appropriate use of the medication. Pt to call if allergy symptoms are not controlled with the medication. If using nasal spray, instructions as follows: Nasal spray- use twice daily, one spray per nostril twice daily, after 30 minutes, rinse out nose with saline spray.. Use opposite hand per nostril to spray in the nasal steroid allergy spray. 02/23/2016 Appointment: Elsie Mosquera WPtel: [phone] [phone] (15 min) Moderate 02/23/2016 Patient Education: Patient Medication Summary Completed 02/23/2016 Patient Education: Obesity Completed 02/23/2016 Visit Plan: Epilepsy - continue with phenytek wound improving 01/16/2016 Appointment: Betty Salamanca WPtel: [phone] (15 min) Moderate 01/16/2016 Patient Education: Patient Medication Summary Completed 01/16/2016 Visit Plan: Hypertension - well controlled - continue with current medications, continue with no added salt diet. Pt has been encouraged to exercise daily. The pt has been advised to call the office if there are any acute concerns about change in blood pressure readings at home. Morbid Obesity - pt has been loosing weight - has been more physically active - continue with activity. Epilepsy - continue with current anti-epileptic 12/26/2015 Appointment: Betty Salamanca WPtel: [phone] [phone] (15 min) Moderate 12/26/2015 Patient Education: Patient Medication Summary Completed 12/26/2015 Patient Education: Obesity Completed 12/26/2015 Care Plan: Comp Metabolic Pending 12/26/2015 Care Plan: Cbc With Differential Pending 12/26/2015 Care Plan: Tsh Pending 12/26/2015 Care Plan: Dilantin Pending 12/26/2015 Visit Plan: Allergies - chronic - recommended pt to use allergy medication as prescribed. Pt has been counseled as to the appropriate use of the medication. Pt to call if allergy symptoms are not controlled with the medication. If using nasal spray, instructions as follows: Nasal spray- use twice daily, one spray per nostril twice daily, after 30 minutes, rinse out nose with saline spray.. Use opposite hand per nostril to spray in the nasal steroid allergy spray. Kenalog injection today in the office. URI - Pt advised to increase fluids, vitamin C. Discussed natural and expected course of this diagnosis and need to alert me if symptoms do not follow expected course, or if any worse. RX sent to patient's pharmacy to take if symptoms do not resolve 11/20/2015 Appointment: Leelee Weinstein WPtel: [phone] (15 min) Moderate 11/20/2015 Patient Education: Patient Medication Summary Completed 11/20/2015 Patient Education: Patient Medication Summary Completed 09/08/2015 Care Plan: Dilantin Pending 09/08/2015 Patient Education: Patient Medication Summary Completed 09/06/2015 Visit Plan: Candidal rash in left axilla - The patient was instructed to use the ointment as per RX. The patient is to call for any change in symptoms, worsening redness, warmth, discharge, increase in size of the lesion, increase in pain. 09/01/2015 Appointment: Leelee Weinstein WPtel: [phone] (30 min) Complex 09/01/2015 Patient Education: Patient Medication Summary Completed 09/01/2015 Referral: Ady Oswald WPtel:[phone] Referral Completed 08/30/2015 Visit Plan: Hypertension - well controlled - continue with current medications, continue with no added salt diet. Pt has been encouraged to exercise daily. The pt has been advised to call the office if there are any acute concerns about change in blood pressure readings at home. Hemorrhoids - RX for anucort suppository. Back pain - history of spinal fusion - recommended pt to avoid heavy labor - he needs to try not to do so much heavy lifting. Seizure disorder - symptoms stable - no change in medications. 08/09/2015 Patient Education: Patient Medication Summary Completed 08/09/2015 Patient Education: Obesity Completed 08/09/2015 Patient Education: Hypertension Completed 08/09/2015 Care Plan: Referral Order SNOMED-CT : [id number] Pending 07/12/2015 Visit Plan: Hypertension - well controlled - continue with current medications, continue with no added salt diet. Pt has been encouraged to exercise daily. The pt has been advised to call the office if there are any acute concerns about change in blood pressure readings at home. referral to dr. oswald for colonoscopy in the summer Seizure disorder - no change in medication for treatment of seizure disorder. 06/26/2015 Patient Education: Patient Medication Summary Completed 06/26/2015 Patient Education: Obesity Completed 06/26/2015 Care Plan: Comp Metabolic Pending 06/26/2015 Care Plan: Tsh Pending 06/26/2015 Care Plan: ASSAY OF PHENYTOIN TOTAL Pending 06/26/2015 Patient Education: Patient Medication Summary Completed 02/03/2015 Care Plan: Lipid (If fasting) Pending 02/03/2015 Care Plan: Dilantin Pending 02/03/2015 Care Plan: Cbc With Differential Pending 02/03/2015 Care Plan: Comp Metabolic Pending 02/03/2015 Care Plan: Tsh Pending 02/03/2015 Care Plan: Pt Pending 02/03/2015 Patient Education: Patient Medication Summary Completed 01/02/2015 Care Plan: Lipid Pending 01/02/2015 Care Plan: Cbc With Differential Pending 01/02/2015 Care Plan: Comp Metabolic Pending 01/02/2015 Care Plan: Total Psa Pending 01/02/2015 Appointment: (15 min) Moderate 11/28/2014 Visit Plan: Hypertension - well controlled - continue with current medications, continue with no added salt diet. Pt has been encouraged to exercise daily. The pt has been advised to call the office if there are any acute concerns about change in blood pressure readings at home. Hospital follow up-small bowel obstruction-resolved - This was a follow up appointment from the patient's hospitalization during which time Dr. Salamanca formulated the assessment and plan for the follow up on this patient's medical condition. 11/18/2014 Appointment: (30 min) Complex 11/18/2014 Patient Education: Patient Medication Summary Completed 11/18/2014 Patient Education: Hypertension Completed 11/18/2014 Visit Plan: Diarrhea - recommended bland diet, low fat diet, start on probiotic, and rehydrate with gatorade-like product. Pt to call if feeling worse, diarrhea becomes bloody, or does not improve with above recomm endations. Pt to call for acute worsening of stomach upset or stomach pain. Pt to start on flagyl. 11/01/2014 Appointment[phone] ([facility] min) Moderate 11/01/2014 Patient Education: Patient Medication Summary Completed 11/01/2014 Visit Plan: Hypertension - elevated today but well controlled at home - continue with current medications, continue with no added salt diet. Pt has been encouraged to exercise daily. The pt has been advised to call the office if there are any acute concerns about change in blood pressure readings at home. Diarrhea - recommended bland diet, low fat diet, start on probiotic, and rehydrate with gatorade-like product. Pt to call if feeling worse, diarrhea becomes bloody, or does not improve with above recommendations. Pt to call for acute worsening of stomach upset or stomach pain. Obesity-patient lost 7#-continue to decrease calories and avoid snacking 10/27/2014 Appointment: (30 min) Complex 10/27/2014 Patient Education: Patient Medication Summary Completed 10/27/2014 Patient Education: Hypertension Completed 10/27/2014 Visit Plan: Hypertension - not controlled - continue with current medication at increased dose of 25mg hctz., continue with no added salt diet. Pt has been encouraged to exercise daily. The pt has been advised to call the office if there are any acute concerns about change in blood pressure readings at home. Hx of Facotr v leiden mutation - referral to oncology/hematology. Obesity - recommended pt to decrease caloric intake - monitor weight closely - 2014 App[facility]ment: [facility] [phone] [id number] [facility] 2014 Patient Education: Patient Medication Summary Completed 2014 Patient Education: Hypertension Completed 2014 Care Plan: Referral Order SNOMED-CT : [id number] Ordered 2014 Visit Plan: Hematuria-per patient report-no pain or difficulty voiding-check UA with C&S if indicated as well as PT/INR Chronic Anticoagulant use - Pt has been counseled about the anticoagulant, need for serial monitoring, and need for the pt to alert the physician as to any new bruising, or acute bleeding. Therapeutic goal for INR is between 2.0 and 3.5. CHECK PT/INR TODAY DUE TO BLOOD IN URINE. 05/05/2014 Appointment: Sick 05/05/2014 Patient Education: Patient Medication Summary Completed 05/05/2014 Visit Plan: Hypertension - well controlled - continue with current medications, continue with no added salt diet. Pt has been encouraged to exercise daily. The pt has been advised to call the office if there are any acute concerns about change in blood pressure readings at home. Cellulitis - continue with oral antibiotics as previously directed, return to clinic as previously directed, call for acute change in symptoms, worsening redness, warmth, discharge. Chronic Anticoagulant use - Pt has been counseled about the anticoagulant, need for serial monitoring, and need for the pt to alert the physician as to any new bruising, or acute bleeding. Theraputic goal for INR is between 2.0 and 3.5. Obesity - chronic issue with this patient. The pt has been counseled about diet changes, calorie restriction, and need to exercise. Pt will RTC in one month for weight check. 04/26/2014 Appointment: [facility] [phone] [id number] [facility] 04/26/2014 Patient Education: Patient Medication Summary Completed 04/26/2014 Patient Education: Hypertension Completed 04/26/2014 Visit Plan: Hypertension - well controlled - continue with current medications, continue with no added salt diet. Pt has been encouraged to exercise daily. The pt has been advised to call the office if there are any acute concerns about change in blood pressure readings at home. Seizure disorder - recommended pt to continue with current medications - check phenytoin level in two weeks. Chronic Anticoagulant use - Pt has been counseled about the anticoagulant, need for serial monitoring, and need for the pt to alert the physician as to any new bruising, or acute bleeding. Theraputic goal for INR is between 2.0 and 3.5. 03/29/2014 Appointment: [facility] [phone] [id number] New [facility] 03/29/2014 Patient Education: Patient Medication Summary Completed 03/29/2014 Patient Education: Hypertension Completed 03/29/2014 Referral: Madhu Hall MD WPtel: [facility] [address] [id number] [place] Referral Completed Referral: Edilson Ordaz [facility] [place] Referral Appointment Requested Referral: Ady Oswald WPtel:[phone] Referral Appointment Requested Instructions Comment . Hypertension - well controlled - continue with current medications, continue with no added salt diet. Pt has been encouraged to exercise daily. The pt has been advised to call the office if there are any acute concerns about change in blood pressure readings at home. referral to dr. oswald for colonoscopy in the summer Seizure disorder - no change in medication for treatment of seizure disorder. Repeat dilantin level in august . Hypertension - well controlled - continue with current medications, continue with no added salt diet. Pt has been encouraged to exercise daily. The pt has been advised to call the office if there are any acute concerns about change in blood pressure readings at home. Hemorrhoids - RX for anucort suppository. Back pain - history of spinal fusion - recommended pt to avoid heavy labor - he needs to try not to do so much heavy lifting. Seizure disorder - symptoms stable - no change in medications. . URI - Pt advised to increase fluids, vitamin C. Discussed natural and expected course of this diagnosis and need to alert me if symptoms do not follow expected course, or if any worse. RX sent to patient's pharmacy. Allergies - chronic - recommended pt to use allergy medication as prescribed. Pt has been counseled as to the appropriate use of the medication. Pt to call if allergy symptoms are not controlled with the medication. If using nasal spray, instructions as follows: Nasal spray- use twice daily, one spray per nostril twice daily, after 30 minutes, rinse out nose with saline spray.. Use opposite hand per nostril to spray in the nasal steroid allergy spray. weight loss goal of 1/2 pound a week - for the next 4 months. pt to take a probiotic while on antibiotic - take the probiotic three times daily x 10 days check a PT/INR on Friday morning. . Hypertension - well controlled - continue with current medications, continue with no added salt diet. Pt has been encouraged to exercise daily. The pt has been advised to call the office if there are any acute concerns about change in blood pressure readings at home. Cellulitis - continue with oral antibiotics as previously directed, return to clinic as previously directed, call for acute change in symptoms, worsening redness, warmth, discharge. Chronic Anticoagulant use - Pt has been counseled about the anticoagulant, need for serial monitoring, and need for the pt to alert the physician as to any new bruising, or acute bleeding. Theraputic goal for INR is between 2.0 and 3.5. Obesity - chronic issue with this patient. The pt has been counseled about diet changes, calorie restriction, and need to exercise. Pt will RTC in one month for weight check. Symbicort sample given . Bilateral PE-hospital follow up-on xarelto-symptoms improving Hitip-hmteoilauz-ekjkayku-continue symbicort twice daily as directed Hypertension - well controlled - continue with current medications, continue with no added salt diet. Pt has been encouraged to exercise daily. The pt has been advised to call the office if there are any acute concerns about change in blood pressure readings at home. . Hypertension - well controlled - continue with current medications, continue with no added salt diet. Pt has been encouraged to exercise daily. The pt has been advised to call the office if there are any acute concerns about change in blood pressure readings at home. Constipation-reassured Panda that he does not have a bowel obstruction-normal formed BMs the last 2 days-no abdominal pain-good bowel sounds-instructed adequate water and fiber intake and to call if symptoms uncontrolled-patient verbalized understanding of plan. on the rash on your foot, use benadryl cream mixed with cortisone cream - use a jerica size portion of both wear a carpal tunnel brace at night and a tennis elbow brace during the day use aspercreme on your elbow and wrist at least twice a day . on the rash on your foot, use benadryl cream mixed with cortisone cream - use a jerica size portion of both Carpal tunnel -wear a carpal tunnel brace at night and a tennis elbow brace during the day use aspercreme on your elbow and wrist at least twice a day . Hypertension - improved - continue with current medications, continue with no added salt diet. Pt has been encouraged to exercise daily. The pt has been advised to call the office if there are any acute concerns about change in blood pressure readings at home. Obesity-lost 10#-continue diet/exercise Epilepsy-check dilantin level . Hypertension - continue with current medications, continue with no added salt diet. Pt has been encouraged to exercise daily. The pt has been advised to call the office if there are any acute concerns about change in blood pressure readings at home. Epilepsy- controlled, no changes, continue to monitor Obesity - chronic issue with this patient. The pt has been counseled about diet changes, calorie restriction, and need to exercise. Pt will RTC in one month for weight check. . Hypertension - improved - continue with current medications, continue with no added salt diet. Pt has been encouraged to exercise daily. The pt has been advised to call the office if there are any acute concerns about change in blood pressure readings at home. Epilepsy- controlled, no changes, continue to monitor Obesity - chronic issue with this patient. The pt has been counseled about diet changes, calorie restriction, and need to exercise. Pt will RTC in one month for weight check. coumadin - when restarting - start on coumadin 4mg 2 pills nightly x 3 nights, then take one pill nightly thereafter. check coumadin level in 2 weeks . Hypertension - well controlled - continue with current medications, continue with no added salt diet. Pt has been encouraged to exercise daily. The pt has been advised to call the office if there are any acute concerns about change in blood pressure readings at home. Seizure disorder - recommended pt to continue with current medications - check phenytoin level in two weeks. Chronic Anticoagulant use - Pt has been counseled about the anticoagulant, need for serial monitoring, and need for the pt to alert the physician as to any new bruising, or acute bleeding. Theraputic goal for INR is between 2.0 and 3.5. . Diarrhea - recommended bland diet, low fat diet, start on probiotic, and rehydrate with gatorade-like product. Pt to call if feeling worse, diarrhea becomes bloody, or does not improve with above recommendations. Pt to call for acute worsening of stomach upset or stomach pain. Pt to start on flagyl. . Hypertension - continue with current medications, continue with no added salt diet. Pt has been encouraged to exercise daily. The pt has been advised to call the office if there are any acute concerns about change in blood pressure readings at home. Epilepsy- controlled, no changes, continue to monitor Obesity - chronic issue with this patient. The pt has been counseled about diet changes, calorie restriction, and need to exercise. Pt will RTC in one month for weight check. Allergies - chronic - recommended pt to use allergy medication as prescribed. Pt has been counseled as to the appropriate use of the medication. Pt to call if allergy symptoms are not controlled with the medication. If using nasal spray, instructions as follows: Nasal spray- use twice daily, one spray per nostril twice daily, after 30 minutes, rinse out nose with saline spray.. Use opposite hand per nostril to spray in the nasal steroid allergy spray. . Hypertension - improved - continue with current medications, continue with no added salt diet. Pt has been encouraged to exercise daily. The pt has been advised to call the office if there are any acute concerns about change in blood pressure readings at home. Epilepsy- controlled, no changes, continue to monitor Obesity - chronic issue with this patient. The pt has been counseled about diet changes, calorie restriction, and need to exercise. Pt will RTC in one month for weight check. . Candidal rash in left axilla - The patient was instructed to use the ointment as per RX. The patient is to call for any change in symptoms, worsening redness, warmth, discharge, increase in size of the lesion, increase in pain. Check UA with c&s if indicated Check PT/INR . Hematuria-per patient report-no pain or difficulty voiding-check UA with C&S if indicated as well as PT/INR Chronic Anticoagulant use - Pt has been counseled about the anticoagulant, need for serial monitoring, and need for the pt to alert the physician as to any new bruising, or acute bleeding. Therapeutic goal for INR is between 2.0 and 3.5. CHECK PT/INR TODAY DUE TO BLOOD IN URINE. increase hctz to 25mg daily. . Hypertension - not controlled - continue with current medication at increased dose of 25mg hctz., continue with no added salt diet. Pt has been encouraged to exercise daily. The pt has been advised to call the office if there are any acute concerns about change in blood pressure readings at home. Hx of Facotr v leiden mutation - referral to oncology/hematology. Obesity - recommended pt to decrease caloric intake - monitor weight closely - . Hypertension - well controlled - continue with current medications, continue with no added salt diet. Pt has been encouraged to exercise daily. The pt has been advised to call the office if there are any acute concerns about change in blood pressure readings at home. Low back pain- the patient was instructed in appropriate posture, need for weight loss to alleviate abdominal obesity that is worsening the patient's back pain.. The pt is to use prn antiinflammatories to manage acute pain. The patient is to call the office if the pain is worsening or does not improve. . Epilepsy - continue with phenytek wound improving . Hypertension - well controlled - continue with current medications, continue with no added salt diet. Pt has been encouraged to exercise daily. The pt has been advised to call the office if there are any acute concerns about change in blood pressure readings at home. Morbid Obesity - pt has been loosing weight - has been more physically active - continue with activity. Epilepsy - continue with current anti-epileptic . Rash - pt is to use topical treatments as directed. Pt is cleanse clothing in hot water with soap, and call if symptoms do not improve or if they worsen or with any change in symptoms, increase in size of the lesion, increase in pain, worsening redness, warmth, discharge. Left arm lipoma - pt is to notify clinic if it changes, becomes tender, red, warm to the touch, or with any changes or concerns and will order US. LABS IN 1 MONTH AT APPT REFER TO DR ORDAZ FOR RIGHT WRIST PAIN . Hypertension - not well controlled - continue with current medications -recommend increasing medication but patient wants to work on diet/exercise x 1 month, continue with no added salt diet. Pt has been encouraged to exercise daily. The pt has been advised to call the office if there are any acute concerns about change in blood pressure readings at home. Epilepsy-due for labs-patient to get labs at next appt Right wrist pain-refer to Dr Ordaz . Sinusitis - Pt has acute infection - pain in face, maxillary region, Pt informed to use decongestant, RX given to patient, sinus rinses also recommended. Call if symptoms do not show improvement. Allergies - chronic - recommended pt to use allergy medication as prescribed. Pt has been counseled as to the appropriate use of the medication. Pt to call if allergy symptoms are not controlled with the medication. If using nasal spray, instructions as follows: Nasal spray- use twice daily, one spray per nostril twice daily, after 30 minutes, rinse out nose with saline spray.. Use opposite hand per nostril to spray in the nasal steroid allergy spray. . Sinusitis - Pt has acute infection - pain in face, maxillary region, Pt informed to use decongestant, RX given to patient, sinus rinses also recommended. Call if symptoms do not show improvement. Allergies - chronic - recommended pt to use allergy medication as prescribed. Pt has been counseled as to the appropriate use of the medication. Pt to call if allergy symptoms are not controlled with the medication. If using nasal spray, instructions as follows: Nasal spray- use twice daily, one spray per nostril twice daily, after 30 minutes, rinse out nose with saline spray.. Use opposite hand per nostril to spray in the nasal steroid allergy spray. . Allergies - chronic - recommended pt to use allergy medication as prescribed. Pt has been counseled as to the appropriate use of the medication. Pt to call if allergy symptoms are not controlled with the medication. If using nasal spray, instructions as follows: Nasal spray- use twice daily, one spray per nostril twice daily, after 30 minutes, rinse out nose with saline spray.. Use opposite hand per nostril to spray in the nasal steroid allergy spray. Kenalog injection today in the office. URI - Pt advised to increase fluids, vitamin C. Discussed natural and expected course of this diagnosis and need to alert me if symptoms do not follow expected course, or if any worse. RX sent to patient's pharmacy to take if symptoms do not resolve . Hypertension - well controlled - continue with current medications, continue with no added salt diet. Pt has been encouraged to exercise daily. The pt has been advised to call the office if there are any acute concerns about change in blood pressure readings at home. Hospital follow up-small bowel obstruction-resolved - This was a follow up appointment from the patient's hospitalization during which time Dr. Salamanca formulated the assessment and plan for the follow up on this patient's medical condition. . Hypertension - elevated today but well controlled at home - continue with current medications, continue with no added salt diet. Pt has been encouraged to exercise daily. The pt has been advised to call the office if there are any acute concerns about change in blood pressure readings at home. Diarrhea - recommended bland diet, low fat diet, start on probiotic, and rehydrate with gatorade-like product. Pt to call if feeling worse, diarrhea becomes bloody, or does not improve with above recommendations. Pt to call for acute worsening of stomach upset or stomach pain. Obesity-patient lost 7#-continue to decrease calories and avoid snacking . URI - Pt advised to increase fluids, vitamin C. Discussed natural and expected course of this diagnosis and need to alert me if symptoms do not follow expected course, or if any worse. RX sent to patient's pharmacy. Allergies - chronic - recommended pt to use allergy medication as prescribed. Pt has been counseled as to the appropriate use of the medication. Pt to call if allergy symptoms are not controlled with the medication. If using nasal spray, instructions as follows: Nasal spray- use twice daily, one spray per nostril twice daily, after 30 minutes, rinse out nose with saline spray.. Use opposite hand per nostril to spray in the nasal steroid allergy spray.
--- OUTSIDE RECORDS SUMMARY | 2018-09-06 05:56 | XMS REPORT | CCD ---
Author Author [facility]amanca Organization [facility] Address [address] [place] [address] Phone Care Team Providers Care [employer] Operator Name Role Phone PP Unavailable CCM Unavailable Summary Purpose Interface Exchange Insurance Providers Payer name Policy type / Coverage type Covered constitution party ID Effective Begin Date Effective End Date Blue Cross Blue Shield [facility] Blue Cross/Blue Shield [id number] Unknown Unknown Family history Father Diagnosis Age At Onset Coronary Artery Disease Unknown Mother Diagnosis Age At Onset Cancer Unknown Cancer Unknown Social History Social History Element Codes Description Effective Dates Number of children Unknown 0 06/26/2015 Employment Unknown 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 [employer] 06/26/[address]: 447755680 Never smoker 06/26/[address]: 240978115 Never drinks alcohol 06/26/2015 Marital status Unknown [place] 04/26/2014 Allergies, Adverse Reactions, Alerts Substance Reaction Codes Entered Date Inactivated Date Status * NO KNOWN DRUG ALLERGIES Unknown 03/29/2014 No Inactive Date Active Past Medical History Illness Codes Condition Status Onset Date Resolved Date Cough ICD-9: 786.2 ICD-10: R05 Active 03/10/2016 [...] 477.0 ICD-10: J30.1 Active 11/19/2015 Unknown Other long term care pharmacist (current) drug therapy ICD-9: V58.69 ICD-10: Z79.899 [...] Problems Condition Codes Effective Dates Condition Status Cough ICD-9: 786.2 ICD-10: R05 03/10/2016 Active [...] ICD-9: 477.0 ICD-10: J30.1 11/19/2015 Active Other care home (current) drug therapy ICD-9: V58.69 ICD-10: Z79.899 [...] Fill Instructions Phenytek 300 mg capsule RxNorm: 086876 TAKE ONE CAPSULE BY MOUTH DAILY WITH TWO 200 MG CAPS TO EQUAL 700 MG 07/21/2018 11/01/2018 Active Phenytek 300 mg capsule RxNorm: 522799 TAKE ONE CAPSULE BY MOUTH DAILY WITH TWO 200 MG CAPS TO EQUAL 700 MG 07/21/2018 11/17/2018 Active Xarelto 20 mg tablet RxNorm: 7109191 TAKE ONE TABLET BY MOUTH DAILY 07/17/2018 12/13/2018 Active pantoprazole 40 mg tablet,delayed release RxNorm: 237949 TAKE ONE TABLET BY MOUTH TWICE A DAY AT 7AM AND 9PM 07/06/2018 01/01/2019 Active Zyrtec 10 mg tablet RxNorm: 7218038 1 Tablet(s) PO daily 03/13/2018 07/10/2018 Inactive Zyrtec 10 mg tablet RxNorm: 6275680 1 Tablet(s) PO daily 02/12/2018 03/12/2018 Inactive Phenytek 200 mg capsule RxNorm: 058300 Capsule(s) TAKE TWO CAPSULES BY MOUTH DAILY WITH 300 MG CAPSULE TO EQUAL 700 MG TOTAL DAILY 01/28/2018 06/26/2018 Inactive MUST HAVE BRAND NAME MEDICATION Augmentin 875 mg-125 mg tablet RxNorm: 994474 1 Tablet(s) PO BID 01/28/2018 01/30/2018 Inactive prednisone 20 mg tablet RxNorm: 333510 2 Tablet(s) PO daily 01/28/2018 02/01/2018 Inactive Phenytek 300 mg capsule RxNorm: 715082 Capsule(s) TAKE ONE CAPSULE BY MOUTH DAILY WITH TWO 200 MG CAPS TO EQUAL 700 MG 01/28/2018 06/26/2018 Inactive MUST HAVE BRAND NAME MEDICATION Phenytek 300 mg capsule RxNorm: 814153 Capsule(s) TAKE ONE CAPSULE BY MOUTH DAILY WITH TWO 200 MG CAPS TO EQUAL 700 MG 01/22/2018 01/27/2018 Inactive Xarelto 20 mg tablet RxNorm: 2156010 TAKE ONE TABLET BY MOUTH DAILY 01/19/2018 07/16/2018 Inactive pantoprazole 40 mg tablet,delayed release RxNorm: 778794 TAKE ONE TABLET BY MOUTH TWICE A DAY AT 7AM AND 9PM 01/06/2018 07/04/2018 Inactive metoprolol succinate ER 25 mg tablet,extended release 24 hr RxNorm: 449717 Tablet(s) TAKE ONE TABLET BY MOUTH DAILY 12/11/2017 09/06/2018 Active Phenytek 200 mg capsule RxNorm: 064515 TAKE TWO CAPSULES BY MOUTH DAILY WITH 300 MG CAPSULE TO EQUAL 700 MG TOTAL DAILY 12/11/2017 01/27/2018 Inactive cefdinir 300 mg capsule RxNorm: 172705 1 Capsule(s) PO BID 11/14/2017 11/23/2017 Inactive cefdinir 300 mg capsule RxNorm: 063942 1 Capsule(s) PO BID 11/14/2017 11/13/2017 Inactive Phenergan with Codeine Syrup RxNorm: 5-10 Milliliter(s) PO QID as needed cough 11/11/2017 No Stop Date Active Zithromax Z-Kevin 250 mg tablet RxNorm: 753833 1 Tablet(s) PO UD 11/11/2017 No Stop Date Active prednisone 10 mg tablet RxNorm: 019353 Tablet(s) PO UD 11/11/2017 No Stop Date Active 6,5,4,3,2,1 Kenalog 40 mg/mL suspension for injection RxNorm: 1594666 1.5 Milliliter(s) Inj 11/11/2017 11/11/2017 Inactive metoprolol succinate ER 25 mg tablet,extended release 24 hr RxNorm: 785515 TAKE ONE TABLET BY MOUTH DAILY 09/15/2017 12/10/2017 Inactive Phenytek 300 mg capsule RxNorm: 060540 TAKE ONE CAPSULE BY MOUTH DAILY WITH TWO 200 MG CAPS TO EQUAL 700 MG 09/09/2017 01/21/2018 Inactive Phenytek 200 mg capsule RxNorm: 696863 TAKE TWO CAPSULES BY MOUTH DAILY WITH 300 MG CAPSULE TO EQUAL 700 MG TOTAL DAILY 08/26/2017 12/10/2017 Inactive pantoprazole 40 mg tablet,delayed release RxNorm: 436424 TAKE ONE TABLET BY MOUTH TWICE A DAY AT 7AM AND 9PM 08/11/2017 01/05/2018 Inactive Xarelto 20 mg tablet RxNorm: 4875673 Tablet(s) TAKE ONE TABLET BY MOUTH DAILY 06/25/2017 01/18/2018 Inactive metoprolol succinate ER 25 mg tablet,extended release 24 hr RxNorm: 973738 TAKE ONE TABLET BY MOUTH DAILY 06/20/2017 09/14/2017 Inactive Phenytek 200 mg capsule RxNorm: 755544 TAKE TWO CAPSULES BY MOUTH DAILY WITH 300 MG CAPSULE TO EQUAL 700 MG TOTAL DAILY 06/02/2017 08/25/2017 Inactive metoprolol succinate ER 25 mg tablet,extended release 24 hr RxNorm: 237837 TAKE ONE TABLET BY MOUTH DAILY 03/24/2017 06/19/2017 Inactive Phenytek 300 mg capsule RxNorm: 292516 TAKE ONE CAPSULE BY MOUTH DAILY WITH TWO 200 MG CAPS TO EQUAL 700 MG 03/12/2017 09/07/2017 Inactive Phenytek 200 mg capsule RxNorm: 161764 TAKE TWO CAPSULES BY MOUTH DAILY WITH 300 MG CAPSULE TO EQUAL 700 MG TOTAL DAILY 02/03/2017 06/01/2017 Inactive pantoprazole 40 mg tablet,delayed release RxNorm: 050350 TAKE ONE TABLET BY MOUTH TWICE A DAY AT 7AM AND 9PM 01/27/2017 07/25/2017 Inactive Ventolin HFA 90 mcg/actuation aerosol inhaler RxNorm: 056245 INHALE ONE PUFF BY MOUTH EVERY 4 TO 6 HOURS NEEDED 01/13/2017 03/19/2017 Inactive mupirocin 2 % topical ointment RxNorm: 307208 1 Application TOP BID 12/27/2016 01/05/2017 Inactive Xarelto 20 mg tablet RxNorm: 3182689 TAKE ONE TABLET BY MOUTH DAILY 11/28/2016 06/24/2017 Inactive Xarelto 20 mg tablet RxNorm: 6010082 TAKE ONE TABLET BY MOUTH DAILY 10/18/2016 11/27/2016 Inactive prednisone 10 mg tablet RxNorm: 452771 Tablet(s) PO UD 10/16/2016 10/21/2016 Inactive 6,5,4,3,2,1 prednisone 10 mg tablet RxNorm: 348138 Tablet(s) PO UD 10/16/2016 10/15/2016 Inactive 6,5,4,3,2,1 prednisone 20 mg tablet RxNorm: 715891 2 Tablet(s) PO daily 10/09/2016 10/13/2016 Inactive metoprolol succinate ER 25 mg tablet,extended release 24 hr RxNorm: 761743 TAKE ONE TABLET BY MOUTH DAILY 09/26/2016 03/23/2017 Inactive Phenytek 300 mg capsule RxNorm: 629513 TAKE ONE CAPSULE BY MOUTH DAILY WITH TWO 200 MG CAPS TO EQUAL 700 MG 09/17/2016 03/11/2017 Inactive Phenytek 200 mg capsule RxNorm: 771733 TAKE TWO CAPSULES BY MOUTH DAILY WITH 300 MG CAPSULE TO EQUAL 700 MG TOTAL DAILY 09/03/2016 01/30/2017 Inactive Xarelto 20 mg tablet RxNorm: 3429650 TAKE ONE TABLET BY MOUTH DAILY 07/23/2016 10/17/2016 Inactive pantoprazole 40 mg tablet,delayed release RxNorm: 035037 TAKE ONE TABLET BY MOUTH TWICE A DAY AT 7 AM AND 9 PM 07/02/2016 12/28/2016 Inactive Xarelto 20 mg tablet RxNorm: 2843170 1 Tablet(s) PO daily 03/25/2016 07/22/2016 Inactive Symbicort 160 mcg-4.5 mcg/actuation HFA aerosol inhaler RxNorm: 0497633 2 Puff(s) INH BID 03/11/2016 No Stop Date Active Phenytek 200 mg capsule RxNorm: 021092 TAKE TWO CAPSULES BY MOUTH DAILY WITH 300 MG CAPSULE TO EQUAL 700 MG TOTAL DAILY 03/08/2016 09/02/2016 Inactive prednisone 20 mg tablet RxNorm: 393070 2 Tablet(s) PO daily 02/23/2016 02/27/2016 Inactive Ventolin HFA 90 mcg/actuation aerosol inhaler RxNorm: 271353 1 Puff(s) INH Q4-6H as needed 02/23/2016 01/12/2017 Inactive Augmentin 875 mg-125 mg tablet RxNorm: 873847 1 Tablet(s) PO BID 02/23/2016 02/25/2016 Inactive nystatin 100,000 unit/gram topical powder RxNorm: 253325 1 Gram(s) TOP TID 01/16/2016 01/25/2016 Inactive Phenergan-Codeine 6.25 mg-10 mg/5 mL syrup RxNorm: 110113 5-10 Milliliter(s) PO Q6 as needed cough 12/01/2015 12/26/2016 Inactive Zithromax 250 mg tablet RxNorm: 887521 1 Tablet(s) PO daily 11/23/2015 11/26/2015 Inactive Zithromax 250 mg tablet RxNorm: 830696 1 Tablet(s) PO daily 11/23/2015 11/22/2015 Inactive Zithromax Z-Kevin 250 mg tablet RxNorm: 798745 1 Tablet(s) PO UD 11/20/2015 11/24/2015 Inactive zpack Kenalog 40 mg/mL suspension for injection RxNorm: 4029473 1 Milliliter(s) Inj 11/20/2015 11/20/2015 Inactive Coumadin 4 mg tablet RxNorm: 950362 TAKE TWO TABLETS BY MOUTH EVERY EVENING FOR 3 DAYS, THEN TAKE TAKE ONE TABLET BY MOUTH EVERY EVENING THEREAFTER 11/20/2015 03/10/2016 Inactive hydrochlorothiazide 25 mg tablet RxNorm: 540712 TAKE ONE TABLET BY MOUTH DAILY 10/11/2015 03/10/2016 Inactive triamcinolone acetonide 0.025 % topical ointment RxNorm: 4612029 1 Application TOP BID 09/01/2015 No Stop Date Active nystatin 100,000 unit/gram topical cream RxNorm: 728021 1 Gram(s) TOP BID 09/01/2015 09/08/2016 Inactive Phenytek 300 mg capsule RxNorm: 956770 1 Capsule(s) PO daily take with two 200mg tablets to equal 700mg 09/01/2015 03/28/2016 Inactive nystatin 100,000 unit/gram topical powder RxNorm: 405076 1 Application TOP 09/01/2015 09/01/2015 Inactive Anucort-HC 25 mg suppository RxNorm: 3181496 1 Suppository RTL BID x 1 week then as needed 08/09/2015 No Stop Date Active Phenytek 300 mg capsule RxNorm: 428868 1 Capsule(s) PO daily take with two 200mg tablets to equal 700mg 08/02/2015 08/31/2015 Inactive Phenytek 200 mg capsule RxNorm: 742714 Capsule(s) TAKE TWO CAPSULES BY MOUTH DAILY. TAKE WITH 300MG CAPSULE TO EQUAL 700MG TOTAL DAILY. 08/02/2015 02/27/2016 Inactive lorazepam 1 mg tablet RxNorm: 482133 1 Tablet(s) PO QID as needed seizure activity 06/26/2015 07/25/2015 Inactive Phenytek 200 mg capsule RxNorm: 273227 TAKE TWO CAPSULES BY MOUTH DAILY. TAKE WITH 300MG CAPSULE TO EQUAL 700MG TOTAL DAILY. 05/25/2015 07/23/2015 Inactive Phenytek 200 mg capsule RxNorm: 092415 TAKE TWO CAPSULES BY MOUTH DAILY. TAKE WITH 300MG CAPSULE TO EQUAL 700MG TOTAL DAILY. 05/03/2015 05/24/2015 Inactive hydrochlorothiazide 25 mg tablet RxNorm: 766036 TAKE ONE TABLET BY MOUTH DAILY 03/27/2015 09/22/2015 Inactive hydrochlorothiazide 25 mg tablet RxNorm: 505474 TAKE ONE TABLET BY MOUTH DAILY 03/27/2015 09/22/2015 Inactive Phenytek 300 mg capsule RxNorm: 391941 1 Capsule(s) PO daily take with 2 200mg tablets to equal 700mg 01/04/2015 08/01/2015 Inactive Coumadin 1 mg tablet RxNorm: 504892 TAKE 1 TABLET BY MOUTH DOCTOR DIRECTED 12/19/2014 03/18/2015 Inactive Coumadin 4 mg tablet RxNorm: 736207 1 Tablet(s) PO QPM when starting, pt to take 4mg two pills nightly x 3 nights then take one pill daily) 12/05/2014 06/25/2015 Inactive Phenytek 200 mg capsule RxNorm: 396218 TAKE TWO CAPSULES BY MOUTH DAILY. TAKE WITH 300MG CAPSULE TO EQUAL 700MG TOTAL DAILY. 11/08/2014 05/02/2015 Inactive metronidazole 500 mg tablet RxNorm: 145652 1 Tablet(s) PO TID 11/01/2014 11/10/2014 Inactive hydrochlorothiazide 25 mg tablet RxNorm: 234865 1 Tablet(s) PO daily 2014 03/26/2015 Inactive Coumadin 1 mg tablet RxNorm: 777400 TAKE 1 TABLET BY MOUTH DOCTOR DIRECTED 08/19/2014 10/31/2014 Inactive Coumadin 1 mg tablet RxNorm: 409114 1 Tablet(s) PO as doctor directed 07/21/2014 08/18/2014 Inactive Coumadin 1 mg tablet RxNorm: 113249 1 Tablet(s) PO as doctor directed 07/21/2014 07/20/2014 Inactive hydrochlorothiazide 12.5 mg tablet RxNorm: 554419 1 Tablet(s) PO daily 06/15/2014 08/28/2014 Inactive Coumadin 5 mg tablet RxNorm: 008627 1 Tablet(s) PO QPM 05/12/2014 10/31/2014 Inactive check lab in 2 weeks Bactrim DS 800 mg-160 mg tablet RxNorm: 639281 1 Tablet(s) PO BID 05/10/2014 05/09/2014 Inactive start after UA given to lab Bactrim DS 800 mg-160 mg tablet RxNorm: 311455 1 Tablet(s) PO BID 05/10/2014 05/16/2014 Inactive start after UA given to lab today Keflex 500 mg capsule RxNorm: 150993 1 Capsule(s) PO TID 04/26/2014 05/05/2014 Inactive Phenytek 300 mg capsule RxNorm: 914802 1 Capsule(s) PO daily 03/29/2014 03/28/2014 Inactive Phenytek 300 mg capsule RxNorm: 279301 1 Capsule(s) PO daily take with 2 200mg tablets to equal 700mg 03/29/2014 10/24/2014 Inactive Phenytek 200 mg capsule RxNorm: 408227 2 Capsule(s) PO daily take with a 300mg capsule to equal 700mg daily 03/29/2014 10/24/2014 Inactive Coumadin 4 mg tablet RxNorm: 141297 1 Tablet(s) PO QPM when starting, pt to take 4mg two pills nightly x 3 nights then take one pill daily) 03/29/2014 05/11/2014 Inactive hydrochlorothiazide 12.5 mg tablet RxNorm: 621452 1 Tablet(s) PO daily 03/29/2014 06/14/2014 Inactive Aspirin Low Dose 81 mg tablet,delayed release RxNorm: 118522 1 Tablet(s) PO daily No Start Date Active Phenergan-Codeine 6.25 mg-10 mg/5 mL syrup RxNorm: 996120 5-10 Milliliter(s) PO Q6 as needed cough No Start Date 11/30/2015 Inactive pantoprazole 40 mg tablet,delayed release RxNorm: 120551 1 Tablet(s) PO daily No Start Date 07/01/2016 Inactive Xarelto 20 mg tablet RxNorm: 9401413 Tablet(s) PO No Start Date 03/24/2016 Inactive 15mg BID x 21 days then 20mg daily lorazepam 0.5 mg tablet RxNorm: 007360 1 Tablet(s) PO as doctor directed for seizures No Start Date 06/25/2015 Inactive Symbicort 160 mcg-4.5 mcg/actuation HFA aerosol inhaler RxNorm: 7608345 inhalation No Start Date 03/10/2016 Inactive Phenytek oral RxNorm: 826458 oral No Start Date 03/28/2014 Inactive metoprolol succinate ER 25 mg tablet,extended release 24 hr RxNorm: 846118 1 Tablet(s) PO daily No Start Date 09/25/2016 Inactive aspirin 325 mg tablet,delayed release RxNorm: 109390 1 Tablet(s) PO QHS No Start Date 03/04/2016 Inactive Medication Administered Medication Codes Instructions Start Date Status Kenalog 40 mg/mL suspension for injection RxNorm: 8010764 1.5Milliliter 11/11/2017 No longer Active Kenalog 40 mg/mL suspension for injection RxNorm: 0116890 1Milliliter 11/20/2015 No longer Active Immunizations Vaccine Codes Date Status Tetanus, Diptheria, Pertussis CVX: 113 09/10/2017 completed Tetanus/Diptheria CVX: 113 09/10/2017 completed Influenza CVX: 141 04/23/2016 completed Assessments Condition Codes Effective Dates Essential (primary) hypertension ICD-10: I10 ICD-9: 401.9 [...] unspecified ICD-10: J06.9 ICD-9: 465.9 11/20/2015 Other care home (current) drug therapy ICD-10: Z79.899 ICD-9: V58.69 [...] Item Item Code Result Date Comp Metabolic Pfn143 NA 141 mEq/L 09/09/2016 Comp Metabolic Zsd934 K 3.8 mEq/L 09/09/2016 Comp Metabolic Fke120 CL 108 mEq/L 09/09/2016 Comp Metabolic Hxf359 CO2 24.0 mEq/L 09/09/2016 Comp Metabolic Icd230 ANION GAP 13 09/09/2016 Comp Metabolic Epf738 GLUCOSE 134 mg/dL 09/09/2016 Comp Metabolic Dwp159 Creat 0.8 mg/dL 09/09/2016 Comp Metabolic Wws094 eGFR 113 ml/min/1.73m2 09/09/2016 Comp Metabolic Tvw080 BUN 16 mg/dL 09/09/2016 Comp Metabolic Wmv054 B/C Ratio 21.1 Ratio 09/09/2016 Comp Metabolic Zid144 CALCIUM 8.8 mg/dL 09/09/2016 Comp Metabolic Byt161 ALK PHOS 111 U/L 09/09/2016 Comp Metabolic Upq994 AST(SGOT) 16 U/L 09/09/2016 Comp Metabolic Zha587 ALT(SGPT) 16 U/L 09/09/2016 Comp Metabolic Wzm746 BILI T 0.4 mg/dL 09/09/2016 Comp Metabolic Vtm923 ALBUMIN 3.8 g/dL 09/09/2016 Comp Metabolic Gyg448 TPRO 7.0 g/dL 09/09/2016 Comp Metabolic Cks386 GLOB 3.2 g/dL 09/09/2016 Comp Metabolic Kih504 A/G Ratio 1.2 Ratio 09/09/2016 Comp Metabolic Jmt612 Osmo 284 mOsmo 09/09/2016 Cbc With Differential [...] 32.6 pg 09/09/2016 Cbc With Differential Ord2 [place]% 10.2 % 09/09/2016 Cbc With Differential Ord2 [...] 1.83 K/ul 09/09/2016 Cbc With Differential Ord2 [place] ABS# 0.7 K/ul 09/09/2016 Cbc With Differential [...] 34.3 pg 12/26/2015 Cbc With Differential Ord2 [place]% 8.7 % 12/26/2015 Cbc With Differential Ord2 [...] 1.71 K/ul 12/26/2015 Cbc With Differential Ord2 [place] ABS# 0.7 K/ul 12/26/2015 Cbc With Differential Ord2 Eos ABS# 0.1 K/ul 12/26/2015 Cbc With Differential Ord2 Baso ABS# 0.0 K/ul 12/26/2015 Tsh Ord6 hTSH II 2.81 uIU/mL 12/26/2015 Comp Metabolic Vaj352 NA 137 mEq/L 12/26/2015 Comp Metabolic Tbr229 K 4.3 mEq/L 12/26/2015 Comp Metabolic Mgu975 CL 101 mEq/L 12/26/2015 Comp Metabolic Hfg311 CO2 27.0 mEq/L 12/26/2015 Comp Metabolic Qif642 ANION GAP 13 12/26/2015 Comp Metabolic Pal830 GLUCOSE 128 mg/dL 12/26/2015 Comp Metabolic Afe979 Creat 0.8 mg/dL 12/26/2015 Comp Metabolic Txh200 eGFR 104 ml/min/1.73m2 12/26/2015 Comp Metabolic Fri227 BUN 16 mg/dL 12/26/2015 Comp Metabolic Puq767 B/C Ratio 19.5 Ratio 12/26/2015 Comp Metabolic Ifk182 CALCIUM 9.2 mg/dL 12/26/2015 Comp Metabolic Rfr219 ALK PHOS 107 U/L 12/26/2015 Comp Metabolic Ofe919 AST(SGOT) 15 U/L 12/26/2015 Comp Metabolic Emz781 ALT(SGPT) 15 U/L 12/26/2015 Comp Metabolic Bcw161 BILI T 0.4 mg/dL 12/26/2015 Comp Metabolic Ebq094 ALBUMIN 4.0 g/dL 12/26/2015 Comp Metabolic Gng419 TPRO 7.6 g/dL 12/26/2015 Comp Metabolic Ehd634 GLOB 3.6 g/dL 12/26/2015 Comp Metabolic Vho704 A/G Ratio 1.1 Ratio 12/26/2015 Comp Metabolic Cgf530 Osmo 277 mOsmo 12/26/2015 Dilantin Ord7 DILANTIN [...] J3301 11/11/2017 OCCULT BLOOD FECES CPT- 4: 47584 10/28/2017 TRIAMCINOLONE ACET INJ NOS CPT-4: J3301 11/20/2015 Vital Signs Date Vital 02/12/2018 Blood Pressure 1: 134/80 Code: 8480-6 BMI: 48.7 Code: 91623-3 Heart Rate 1: 78 bpm Height: 5'11" SpO2: 96% Weight: 349 lbs 01/28/2018 Blood Pressure 1: 140/80 Code: 8480-6 BMI: 48.3 Code: 09230-4 Heart Rate 1: 78 bpm Height: 5'11" SpO2: 94% Temperature: 36.7 (C) / 98.1 (F) Weight: 346 lbs 11/11/2017 Blood Pressure 1: 144/82 Code: 8480-6 BMI: 47.1 Code: 09495-0 Heart Rate 1: 73 bpm Height: 5'11" SpO2: 94% Temperature: 36.9 (C) / 98.5 (F) Weight: 338 lbs 10/17/2017 Blood Pressure 1: 136/78 Code: 8480-6 BMI: 47.1 Code: 83637-8 Heart Rate 1: 82 bpm Height: 5'11" SpO2: 96% Weight: 338 lbs 06/06/2017 Blood Pressure 1: 138/76 Code: 8480-6 BMI: 47.4 Code: 17127-8 Heart Rate 1: 76 bpm Height: 5'11" SpO2: 96% Weight: 340 lbs 04/11/2017 Blood Pressure 1: 142/80 Code: 8480-6 Heart Rate 1: 79 bpm Height: 5'11" SpO2: 96% 01/27/2017 Blood Pressure 1: 146/86 Code: 8480-6 BMI: 47.1 Code: 30183-8 Heart Rate 1: 97 bpm Height: 5'11" SpO2: 95% Weight: 338 lbs 12/27/2016 Blood Pressure 1: 154/74 Code: 8480-6 BMI: 48.5 Code: 96300-8 Heart Rate 1: 82 bpm Height: 5'11" SpO2: 96% Weight: 348 lbs 10/09/2016 Blood Pressure 1: 160/82 Code: 8480-6 BMI: 47.4 Code: 92852-5 Heart Rate 1: 77 bpm Height: 5'11" SpO2: 96% Weight: 340 lbs 09/09/2016 Blood Pressure 1: 140/80 Code: 8480-6 Heart Rate 1: 88 bpm Height: 5'11" SpO2: 96% Weight: 05/31/2016 Blood Pressure 1: 126/78 Code: 8480-6 BMI: 46.3 Code: 07764-8 Heart Rate 1: 75 bpm Height: 5'11" SpO2: 96% Weight: 332 lbs 03/29/2016 Blood Pressure 1: 146/78 Code: 8480-6 Heart Rate 1: 78 bpm Height: 5'11" SpO2: 97% Weight: 03/11/2016 Blood Pressure 1: 136/86 Code: 8480-6 BMI: 44.4 Code: 60783-9 Heart Rate 1: 77 bpm Height: 5'11" SpO2: 96% Weight: 318 lbs 02/23/2016 Blood Pressure 1: 146/94 Code: 8480-6 BMI: 44.4 Code: 59554-9 Heart Rate 1: 90 bpm Height: 5'11" SpO2: 93% Weight: 318 lbs 01/16/2016 Blood Pressure 1: 140/86 Code: 8480-6 BMI: 44.6 Code: 22663-1 Heart Rate 1: 75 bpm Height: 5'11" SpO2: 96% Weight: 320 lbs 12/26/2015 Blood Pressure 1: 130/78 Code: 8480-6 BMI: 43.7 Code: 08647-7 Heart Rate 1: 96 bpm Height: 5'11" SpO2: 98% Weight: 313 lbs 11/20/2015 Blood Pressure 1: 137/92 Code: 8480-6 Heart Rate 1: 84 bpm Height: SpO2: 98% Temperature: 36.7 (C) / 98.0 (F) Weight: 09/01/2015 Blood Pressure 1: 148/88 Code: 8480-6 BMI: 43.8 Code: 99411-2 Heart Rate 1: 73 bpm Height: 5'11" SpO2: 97% Weight: 314 lbs 08/09/2015 Blood Pressure 1: 138/78 Code: 8480-6 BMI: 45.0 Code: 00279-1 Heart Rate 1: 75 bpm Height: 5'11" SpO2: 98% Weight: 323 lbs 06/26/2015 Blood Pressure 1: 134/80 Code: 8480-6 BMI: 46.3 Code: 87008-3 Heart Rate 1: 78 bpm Height: 5'11" SpO2: 96% Weight: 332 lbs 11/18/2014 Blood Pressure 1: 130/78 Code: 8480-6 BMI: 44.4 Code: 40992-2 Heart Rate 1: 66 bpm Height: 5'11" SpO2: 98% Weight: 318 lbs 11/01/2014 Blood Pressure 1: 130/78 Code: 8480-6 BMI: 44.5 Code: 42479-7 Heart Rate 1: 78 bpm Height: 5'11" SpO2: 97% Weight: 319 lbs 10/27/2014 Blood Pressure 1: 152/88 Code: 8480-6 BMI: 43.9 Code: 10301-8 Heart Rate 1: 91 bpm Height: 5'11" SpO2: 98% Weight: 315 lbs 2014 Blood Pressure 1: 140/82 Code: 8480-6 BMI: 44.9 Code: 57484-4 Heart Rate 1: 78 bpm Height: 5'11" Weight: 322 lbs 05/05/2014 Blood Pressure 1: 142/88 Code: 8480-6 BMI: 40.9 Code: 25757-7 Heart Rate 1: 64 bpm Height: 5'11" Temperature: 37.3 (C) / 99.1 (F) Weight: 293 lbs 04/26/2014 Blood Pressure 1: 142/82 Code: 8480-6 BMI: 40.2 Code: 80383-9 Heart Rate 1: 64 bpm Height: 5'11" Weight: 288 lbs 03/29/2014 Blood Pressure 1: 138/84 Code: 8480-6 BMI: 39.3 Code: 49388-2 Heart Rate 1: 84 bpm Height: 5'11" [...] data Encounters Encounter Performer Location Codes Date 24924 EST. PATIENT, LEVEL IV Diagnosis: Essential (primary) hypertension[ICD10: I10] Diagnosis: Epilepsy, unspecified, not intractable, without status epilepticus[ICD10: G40.909] Diagnosis: Cough[ICD10: R05] Diagnosis: Other allergic rhinitis[ICD10: J30.89] Elsie Salamanca MD, [facility] CPT- 4: 30987 02/12/2018 73101 EST. PATIENT, LEVEL III Diagnosis: Acute laryngopharyngitis[ICD10: J06.0] Diagnosis: Other allergic rhinitis[ICD10: J30.89] Diagnosis: Encounter for therapeutic drug level monitoring[ICD10: Z51.81] Elsie Salamanca MD, [facility] CPT-4: 72410 01/28/2018 [id number] EST. PATIENT, LEVEL III Diagnosis: Other acute sinusitis[ICD10: J01.80] Diagnosis: Other allergic rhinitis[ICD10: J30.89] Diagnosis: Cough[ICD10: R05] Elsie Salamanca MD, [facility] CPT-4: 20702 11/11/2017 [id number] EST. PATIENT, LEVEL IV Diagnosis: Essential (primary) hypertension[ICD10: I10] Diagnosis: Epilepsy, unspecified, not intractable, without status epilepticus[ICD10: G40.909] Elsie Salamanca MD, [facility] CPT-4: 77833 10/17/2017 [id number] EST. PATIENT, LEVEL IV Diagnosis: Essential (primary) hypertension[ICD10: I10] Diagnosis: Epilepsy, unspecified, not intractable, without status epilepticus[ICD10: G40.909] Elsie Salamanca MD, [facility] CPT-4: 53698 06/06/2017 29115 EST. PATIENT, LEVEL IV Diagnosis: Essential (primary) hypertension[ICD10: I10] Diagnosis: Epilepsy, unspecified, not intractable, without status epilepticus[ICD10: G40.909] Elsie Salamanca MD, [facility] CPT-4: 96799 04/11/2017 ([id number]) 43364 EST. PATIENT, LEVEL III Diagnosis: Essential (primary) hypertension[ICD10: I10] Diagnosis: Epilepsy, unspecified, not intractable, without status epilepticus[ICD10: G40.909] Leelee Salamanca MD, [facility] CPT-4: 96285 01/27/2017 ([id number]) 83045 EST. PATIENT, LEVEL IV Diagnosis: Essential (primary) hypertension[ICD10: I10] Diagnosis: Epilepsy, unspecified, not intractable, without status epilepticus[ICD10: G40.909] Diagnosis: Pain in right wrist[ICD10: M25.531] Leelee Salamanca MD, [facility] CPT-4: 17705 12/27/2016 [id number] EST. PATIENT, LEVEL III Diagnosis: Rash and other nonspecific skin eruption[ICD10: R21] Elsie Salamanca MD, [facility] CPT-4: 78097 10/09/2016 ([id number]) 05116 EST. PATIENT, LEVEL III Diagnosis: Carpal tunnel syndrome, right upper limb[ICD10: G56.01] Diagnosis: Olecranon bursitis, right elbow[ICD10: M70.21] Betty Salamanca MD, [facility] CPT-4: 66897 09/09/2016 ([id number]) 86745 EST. PATIENT, LEVEL III Diagnosis: Essential (primary) hypertension[ICD10: I10] Diagnosis: Low back pain[ICD10: M54.5] Leelee Salamanca MD, [facility] CPT-4: 84461 05/31/2016 ([id number]) [id number] EST. PATIENT, LEVEL III Diagnosis: Essential (primary) hypertension[ICD10: I10] Diagnosis: Slow transit constipation[ICD10: K59.01] Leelee Salamanca MD, [facility] CPT-4: 33462 03/29/2016 ([id number]) [id number] EST. 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 PATIENT, LEVEL III Diagnosis: Acute laryngopharyngitis[ICD10: J06.0] Diagnosis: Other allergic rhinitis[ICD10: J30.89] Diagnosis: Cough[ICD10: R05] Diagnosis: Wheezing[ICD10: R06.2] Elsie Salamanca MD, [facility] CPT-4: 81726 02/23/2016 ([id number]) 13591 EST. PATIENT, LEVEL III Diagnosis: Epilepsy, unspecified, not intractable, without status epilepticus[ICD10: G40.909] Betty Salamanca MD, [facility] CPT-4: 89485 01/16/2016 ([id number]) 55768 EST. PATIENT, LEVEL IV Diagnosis: Essential (primary) hypertension[ICD10: I10] Diagnosis: Morbid (severe) obesity due to excess calories[ICD10: E66.01] Diagnosis: Epilepsy, unspecified, not intractable, without status epilepticus[ICD10: G40.909] Betty Salamanca MD, [facility] CPT-4: 17822 12/26/2015 ([id number]) 11074 EST. PATIENT, LEVEL III Diagnosis: Allergic rhinitis due to pollen[ICD10: J30.1] Diagnosis: Acute upper respiratory infection, unspecified[ICD10: J06.9] Leelee Salamanca MD, [facility] CPT-4: 10413 11/20/2015 02076 EST. PATIENT, LEVEL IV Diagnosis: Other long term care pharmacist (current) drug therapy[ICD10: Z79.899] Diagnosis: Candidiasis of skin and nail[ICD10: B37.2] Elsie Salamanca MD, [facility] CPT-4: 85212 09/01/2015 ([id number]) 15207 EST. PATIENT, LEVEL IV Diagnosis: Epilepsy, unspecified, not intractable, without status epilepticus[ICD10: G40.909] Diagnosis: Essential (primary) hypertension[ICD10: I10] Diagnosis: First degree hemorrhoids[ICD10: K64.0] Diagnosis: Low back pain[ICD10: M54.5] Betty Salamanca MD, [facility] CPT-4: 97361 08/09/2015 ([id number]) 00219 EST. PATIENT, LEVEL IV Diagnosis: Essential (primary) hypertension[ICD10: I10] Diagnosis: Morbid (severe) obesity due to excess calories[ICD10: E66.01] Diagnosis: Epilepsy, unspecified, not intractable, without status epilepticus[ICD10: G40.909] Betty Salamanca MD, [facility] CPT-4: 42354 06/26/2015 ([id number]) 77837 EST. PATIENT, LEVEL IV Diagnosis: ESSENTIAL HYPERTENSION[ICD9: 401.9] Diagnosis: Small bowel obstruction[ICD9: 560.9] Diagnosis: Hospital discharge follow-up[ICD9: V67.59] Betty Salamanca MD, [facility] CPT-4: 11883 11/18/2014 ([id number]) 00556 EST. PATIENT, LEVEL III Diagnosis: Diarrhea[ICD9: 787.91] Diagnosis: Abdominal pain[ICD9: 789.00] Betty Salamanca MD, [facility] CPT-4: 72859 11/01/2014 ([id number]) 24009 EST. PATIENT, LEVEL III Diagnosis: ESSENTIAL HYPERTENSION[ICD9: 401.9] Diagnosis: Diarrhea[ICD9: 787.91] Leelee Salamanca MD, [facility] CPT-4: 46787 10/27/2014 ([id number]) 71652 EST. PATIENT, LEVEL IV Diagnosis: Factor V Leiden mutation[ICD9: 289.81] Diagnosis: Hx of deep venous thrombosis[ICD9: V12.51] Diagnosis: ESSENTIAL HYPERTENSION[ICD9: 401.9] Diagnosis: OBESITY[ICD9: 278.00] Betty Salamanca MD, [facility] CPT-4: 16317 2014 ([id number]) 73397 EST. PATIENT, LEVEL III Diagnosis: Hematuria[ICD9: 599.70] Diagnosis: LONG-TERM USE ANTICOAGUL[ICD9: V58.61] Leelee Salamanca MD, [facility] CPT-4: 50108 05/05/2014 ([id number]) 08079 EST. PATIENT, LEVEL IV Diagnosis: ESSENTIAL HYPERTENSION[ICD9: 401.9] Diagnosis: LONG-TERM USE ANTICOAGUL[ICD9: V58.61] Diagnosis: MORBID OBESITY[ICD9: 278.01] Diagnosis: Abscess and cellulitis[ICD9: 682.9] Betty Salamanca MD, [facility] CPT- 4: 73547 04/26/2014 ([id number]) OFFICE VISIT, NEW - LEVEL 4 Diagnosis: ESSENTIAL HYPERTENSION[ICD9: 401.9] Diagnosis: LONG-TERM USE ANTICOAGUL[ICD9: V58.61] [facility] CPT-4: 49250 03/29/2014 Plan of Care Planned Activity Notes Codes Status Date Visit Plan: Hypertension - continue with current [...] allergy spray. 02/12/2018 Appointment: Elsie Mosquera WPtel: [address] [place], [place] [phone] (15 min) Moderate 02/12/2018 Patient Education: Patient [...] nasal steroid allergy spray. 01/28/2018 Appointment: Elsie Mosquera WPtel: [address] [place], [place] [phone] (15 min) Moderate 01/28/2018 Patient Education: Patient [...] nasal steroid allergy spray. 11/11/2017 Appointment: [phone] [facility] (15 min) Moderate 11/11/2017 Patient Education: Patient [...] month for weight check. 10/17/2017 Appointment: Elsie Mosquera WPtel: [phone] [facility] (15 min) Moderate 10/17/2017 Patient Education: Patient Medication Summary Completed 10/17/2017 Appointment: Elsie Mosquera WPtel: [phone] [phone] (15 min) Moderate 10/07/2017 Care Plan: BMI Above normal followup SELF-MGMT EDUC & TRAIN 1 PT Pending 06/09/2017 Visit Plan: Hypertension - improved - continue with current medications, continue with no added salt diet. Pt has been encouraged to exercise daily. The pt has been advised to call the office if there are any ac noam concerns about change in blood pressure readings at home. Epilepsy- controlled, no changes, continue to monitor Obesity - chronic issue with this patient. The pt has been counseled about diet changes, calorie restriction, and need to exercise. Pt will RTC in one month for weight check. 06/06/2017 Appointment: Elsie Mosquera WPtel: [phone] [facility] [place] (30 min) Complex 06/06/2017 Patient Education: Patient [...] the office if there are any ac noam concerns about change in blood pressure readings at home. Epilepsy- controlled, no changes, continue to monitor Obesity - chronic issue with this patient. The pt has been counseled about diet changes, calorie restriction, and need to exercise. Pt will RTC in one month for weight check. 04/11/2017 Appointment: [facility]qu[phone] [facility] (30 min) Complex 04/11/2017 Patient Education: Patient Medication Summary Completed 04/11/2017 Patient Education: Obesity Completed 04/11/2017 Appointment: Elsie Mosquera WPtel: [facility] (30 min) Complex 04/01/2017 Visit Plan: Hypertension - improved - continue with current medications, continue with no added salt diet. Pt has been encouraged to exercise daily. The pt has been advised to call the office if there are any ac noam concerns about change in blood pressure readings at home. Obesity-lost 10#- continue diet/exercise Epilepsy-check dilantin level 01/27/2017 Appointment: Leelee Weinstein WPtel: [phone] [place] (30 min) Complex 01/27/2017 Patient Education: [...] Dr Ordaz 12/27/2016 Appointment: Leelee Weinstein WPtel: [phone] (30 min) Complex 12/27/2016 Patient Education: Patient Medication Summary Completed 12/27/2016 Care Plan: Referral Order SNOMED-CT : 674672847 Pending 12/27/2016 Visit Plan: Rash - pt [...] Obesity Completed 10/09/2016 Appointment: Leelee Weinstein WPtel: [phone] [phone] (30 min) Complex 10/04/2016 Visit Plan: on the rash on your foot, use benadryl cream mixed with cortisone cream - use a jerica size portion of both Carpal tunnel -wear a carpal tunnel brace at night and a tennis elbow brace during the day use aspercreme on your elbow and wrist at least twice a day 09/09/2016 Appointment: Betty Salamanca WPtel: [facility] (15 min) Moderate 09/09/2016 Patient Education: Patient [...] improve. 05/31/2016 Appointment: [facility] Weinstein [phone] [phone] (30 min) Complex 05/31/2016 Patient Education: Patient Medication Summary Completed 05/31/2016 Patient Education: Obesity Completed 05/31/2016 Patient Education: Hypertension Completed 05/31/2016 Appointment: Leelee Weinstein WPtel: [phone] (30 min) Complex 04/01/2016 Visit Plan: Hypertension [...] plan. 03/29/2016 Appointment: Leelee Weinstein WPtel: [phone] [phone] (15 min) Moderate 03/29/2016 Patient Education: Patient Medication Summary Completed 03/29/2016 Patient Education: Hypertension Completed 03/29/2016 Visit Plan: Bilateral PE-hospital follow up-on xarelto-symptoms improving Wuspz-gtyffcwqml-eatakvgv-continue symbicort twice daily as directed Hypertension - well controlled - continue with current medications, continue with no added salt diet. Pt has been encouraged to exercise daily. The pt has been advised to call the office if there are any acute concerns about change in blood pressure readings at home. 03/11/2016 Appointment: Leelee Weinstein WPtel: [phone] (30 min) Complex 03/11/2016 Patient Education: Patient [...] allergy spray. 02/23/2016 Appointment: Elsie Mosquera WPtel: [facility] (15 min) Moderate 02/23/2016 Patient Education: Patient Medication Summary Completed 02/23/2016 Patient Education: Obesity Completed 02/23/2016 Visit Plan: Epilepsy - continue with phenytek wound improving 01/16/2016 Appointment: Betty Salamanca WPtel: [facility] (15 min) Moderate 01/16/2016 Patient Education: Patient [...] current anti-epileptic 12/26/2015 Appointment: Betty Salamanca WPtel: [facility] (15 min) Moderate 12/26/2015 Patient Education: Patient [...] not resolve 11/20/2015 Appointment: Leelee Weinstein WPtel: [phone] [phone] (15 min) Moderate 11/20/2015 Patient Education: Patient [...] in pain. 09/01/2015 Appointment: Leelee Weinstein WPtel: [phone] [phone] (30 min) Complex 09/01/2015 Patient Education: Patient Medication Summary Completed 09/01/2015 Referral: Ady Oswald WPtel:[phone] Referral Completed 08/30/2015 Visit Plan: Hypertension - [...] 08/09/2015 Care Plan: Referral Order SNOMED-CT : [id number] Pending 07/12/2015 Visit Plan: Hypertension - well [...] on flagyl. 11/01/2014 Appointment: Betty Salamanca WPtel: [phone] [facility] (15 min) Moderate 11/01/2014 Patient Education: Patient [...] closely - 2014 Appointment: Betty Salamanca WPtel: [address] [place] [address] Follow up 2014 Patient Education: Patient Medication Summary Completed 2014 Patient Education: Hypertension Completed 2014 Care Plan: Referral Order SNOMED-CT : [id number] Ordered 2014 Visit Plan: Hematuria-per patient report-no [...] weight check. 04/26/2014 Appointment: Betty Salamanca WPtel: [address] [place], [place] [phone] Follow up 04/26/2014 Patient Education: Patient Medication [...] and 3.5. 03/29/2014 Appointment: Betty Salamanca WPtel: [address] [place], [place] [phone] New Patient 03/29/2014 Patient Education: Patient Medication Summary Completed 03/29/2014 Patient Education: Hypertension Completed 03/29/2014 Referral: Madhu Hall MD WPtel: Via [address] [place] Referral Completed Referral: Edilson Ordaz [facility] [place] Referral Appointment Requested Referral: Ady Oswald WPtel:[phone] Referral Appointment Requested Instructions Comment . Hypertension [...] in medication for treatment of seizure disorder. . Hypertension - improved - continue with current medications, continue with no added salt diet. Pt has been encouraged to exercise daily. The pt has been advised to call the office if there are any acute concerns about change in blood pressure readings at home. Obesity-lost 10#-continue diet/exercise Epilepsy-check dilantin level on the rash on your foot, use [...] least twice a day . Hypertension - well controlled - continue [...] if symptoms uncontrolled-patient verbalized understanding of plan. Symbicort sample given . Bilateral PE-hospital follow up-on xarelto-symptoms improving Lyokd-uuikzkcpzp-jkjlroua-continue symbicort twice daily as directed Hypertension - well controlled - continue with current medications, continue with no added salt diet. Pt has been encouraged to exercise daily. The pt has been advised to call the office if there are any acute concerns about change in blood pressure readings at home. weight loss goal of 1/2 pound a [...] in one month for weight check. . URI - Pt advised to increase [...] spray in the nasal steroid allergy spray. Repeat dilantin level in august . Hypertension [...] symptoms stable - no change in medications. LABS IN 1 MONTH AT APPT REFER [...] Right wrist pain-refer to Dr Ordaz . Rash - pt is to use [...] changes or concerns and will order US. . Hypertension - well controlled - continue [...] Epilepsy - continue with current anti-epileptic . Epilepsy - continue with phenytek wound [...] pain is worsening or does not improve. increase hctz to 25mg daily. . Hypertension [...] caloric intake - monitor weight closely - Check UA with c&s if indicated Check [...] PT/INR TODAY DUE TO BLOOD IN URINE. . Candidal rash in left axilla - The patient was instructed to use the ointment as per RX. The patient is to call for any change in symptoms, worsening redness, warmth, discharge, increase in size of the lesion, increase in pain. . Hypertension - improved - continue with [...] month for weight check. . Hypertension - continue with current medications, [...] in the nasal steroid allergy spray. . Diarrhea - recommended bland diet, low fat diet, start on probiotic, and rehydrate with gatorade-like product. Pt to call if feeling worse, diarrhea becomes bloody, or does not improve with above recommendations. Pt to call for acute worsening of stomach upset or stomach pain. Pt to start on flagyl. coumadin - when restarting - start on [...] INR is between 2.0 and 3.5. . Hypertension - improved - continue with [...] month for weight check. . Hypertension - continue with current medications, [...] in one month for weight check. . Sinusitis - Pt has acute infection [...]
--- OUTSIDE RECORDS SUMMARY | 2018-09-06 05:59 | XMS REPORT | CCD ---
Author Author [facility] Organization [facility] Address [address] [place] [address] Phone Care Team Providers Care Twisthand Name Role Phone PP Unavailable CCM Unavailable Summary Purpose Interface Exchange Insurance Providers Payer name Policy type / Coverage type Covered libertarian ID Effective Begin Date Effective End Date Blue Cross Blue Shield [facility] Blue Cross/Blue Shield [id number] Unknown Unknown Family history Father Diagnosis Age At Onset Coronary Artery Disease Unknown Mother Diagnosis Age At Onset Cancer Unknown Cancer Unknown Social History Social History Element Codes Description Effective Dates Number of children Unknown 0 06/26/2015 Employment Unknown Currently employed Still [employer] at [employer] 06/26/[address]: 824734094 Never smoker 06/26/[address]: 515361478 Never drinks alcohol 06/26/2015 Marital status Unknown [...] 477.0 ICD-10: J30.1 Active 11/19/2015 Unknown 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 ICD-9: V58.69 ICD-10: Z79.899 [...] ICD-9: 477.0 ICD-10: J30.1 11/19/2015 Active Other fpc (current) drug therapy ICD-9: V58.69 ICD-10: Z79.899 [...] Start Date Stop Date Status Fill Instructions Xarelto 20 mg tablet RxNorm: 0822184 TAKE ONE TABLET BY MOUTH DAILY 07/17/2018 12/13/2018 Active pantoprazole 40 mg tablet,delayed release RxNorm: 245361 TAKE ONE TABLET BY MOUTH TWICE A DAY AT 7AM AND 9PM 07/06/2018 01/01/2019 Active Zyrtec 10 mg tablet RxNorm: 8055608 1 Tablet(s) PO daily 03/13/2018 07/10/2018 Inactive Zyrtec 10 mg tablet RxNorm: 4113869 1 Tablet(s) PO daily 02/12/2018 03/12/2018 Inactive Phenytek 200 mg capsule RxNorm: 930337 Capsule(s) TAKE TWO CAPSULES BY MOUTH DAILY WITH 300 MG CAPSULE TO EQUAL 700 MG TOTAL DAILY 01/28/2018 06/26/2018 Inactive MUST HAVE BRAND NAME MEDICATION Phenytek 300 mg capsule RxNorm: 857126 Capsule(s) TAKE ONE CAPSULE BY MOUTH DAILY WITH TWO 200 MG CAPS TO EQUAL 700 MG 01/28/2018 06/26/2018 Inactive MUST HAVE BRAND NAME MEDICATION Augmentin 875 mg-125 mg tablet RxNorm: 211374 1 Tablet(s) PO BID 01/28/2018 01/30/2018 Inactive prednisone 20 mg tablet RxNorm: 388581 2 Tablet(s) PO daily 01/28/2018 02/01/2018 Inactive Phenytek 300 mg capsule RxNorm: 125515 Capsule(s) TAKE ONE CAPSULE BY MOUTH DAILY WITH TWO 200 MG CAPS TO EQUAL 700 MG 01/22/2018 01/27/2018 Inactive Xarelto 20 mg tablet RxNorm: 7873540 TAKE ONE TABLET BY MOUTH DAILY 01/19/2018 07/16/2018 Inactive pantoprazole 40 mg tablet,delayed release RxNorm: 234422 TAKE ONE TABLET BY MOUTH TWICE A DAY AT 7AM AND 9PM 01/06/2018 07/04/2018 Inactive metoprolol succinate ER 25 mg tablet,extended release 24 hr RxNorm: 223605 Tablet(s) TAKE ONE TABLET BY MOUTH DAILY 12/11/2017 09/06/2018 Active Phenytek 200 mg capsule RxNorm: 519685 TAKE TWO CAPSULES BY MOUTH DAILY WITH 300 MG CAPSULE TO EQUAL 700 MG TOTAL DAILY 12/11/2017 01/27/2018 Inactive cefdinir 300 mg capsule RxNorm: 625638 1 Capsule(s) PO BID 11/14/2017 11/23/2017 Inactive cefdinir 300 mg capsule RxNorm: 871878 1 Capsule(s) PO BID 11/14/2017 11/13/2017 Inactive Phenergan with Codeine Syrup RxNorm: 5-10 Milliliter(s) PO QID as needed cough 11/11/2017 No Stop Date Active Zithromax Z-Kevin 250 mg tablet RxNorm: 735573 1 Tablet(s) PO UD 11/11/2017 No Stop Date Active prednisone 10 mg tablet RxNorm: 253534 Tablet(s) PO UD 11/11/2017 No Stop Date Active 6,5,4,3,2,1 Kenalog 40 mg/mL suspension for injection RxNorm: 8221760 1.5 Milliliter(s) Inj 11/11/2017 11/11/2017 Inactive metoprolol succinate ER 25 mg tablet,extended release 24 hr RxNorm: 112830 TAKE ONE TABLET BY MOUTH DAILY 09/15/2017 12/10/2017 Inactive Phenytek 300 mg capsule RxNorm: 758439 TAKE ONE CAPSULE BY MOUTH DAILY WITH TWO 200 MG CAPS TO EQUAL 700 MG 09/09/2017 01/21/2018 Inactive Phenytek 200 mg capsule RxNorm: 429009 TAKE TWO CAPSULES BY MOUTH DAILY WITH 300 MG CAPSULE TO EQUAL 700 MG TOTAL DAILY 08/26/2017 12/10/2017 Inactive pantoprazole 40 mg tablet,delayed release RxNorm: 308285 TAKE ONE TABLET BY MOUTH TWICE A DAY AT 7AM AND 9PM 08/11/2017 01/05/2018 Inactive Xarelto 20 mg tablet RxNorm: 8052987 Tablet(s) TAKE ONE TABLET BY MOUTH DAILY 06/25/2017 01/18/2018 Inactive metoprolol succinate ER 25 mg tablet,extended release 24 hr RxNorm: 575729 TAKE ONE TABLET BY MOUTH DAILY 06/20/2017 09/14/2017 Inactive Phenytek 200 mg capsule RxNorm: 896650 TAKE TWO CAPSULES BY MOUTH DAILY WITH 300 MG CAPSULE TO EQUAL 700 MG TOTAL DAILY 06/02/2017 08/25/2017 Inactive metoprolol succinate ER 25 mg tablet,extended release 24 hr RxNorm: 712995 TAKE ONE TABLET BY MOUTH DAILY 03/24/2017 06/19/2017 Inactive Phenytek 300 mg capsule RxNorm: 413309 TAKE ONE CAPSULE BY MOUTH DAILY WITH TWO 200 MG CAPS TO EQUAL 700 MG 03/12/2017 09/07/2017 Inactive Phenytek 200 mg capsule RxNorm: 680924 TAKE TWO CAPSULES BY MOUTH DAILY WITH 300 MG CAPSULE TO EQUAL 700 MG TOTAL DAILY 02/03/2017 06/01/2017 Inactive pantoprazole 40 mg tablet,delayed release RxNorm: 784106 TAKE ONE TABLET BY MOUTH TWICE A DAY AT 7AM AND 9PM 01/27/2017 07/25/2017 Inactive Ventolin HFA 90 mcg/actuation aerosol inhaler RxNorm: 954962 INHALE ONE PUFF BY MOUTH EVERY 4 TO 6 HOURS NEEDED 01/13/2017 03/19/2017 Inactive mupirocin 2 % topical ointment RxNorm: 119869 1 Application TOP BID 12/27/2016 01/05/2017 Inactive Xarelto 20 mg tablet RxNorm: 7523541 TAKE ONE TABLET BY MOUTH DAILY 11/28/2016 06/24/2017 Inactive Xarelto 20 mg tablet RxNorm: 8008851 TAKE ONE TABLET BY MOUTH DAILY 10/18/2016 11/27/2016 Inactive prednisone 10 mg tablet RxNorm: 369180 Tablet(s) PO UD 10/16/2016 10/21/2016 Inactive 6,5,4,3,2,1 prednisone 10 mg tablet RxNorm: 390945 Tablet(s) PO UD 10/16/2016 10/15/2016 Inactive 6,5,4,3,2,1 prednisone 20 mg tablet RxNorm: 097712 2 Tablet(s) PO daily 10/09/2016 10/13/2016 Inactive metoprolol succinate ER 25 mg tablet,extended release 24 hr RxNorm: 520858 TAKE ONE TABLET BY MOUTH DAILY 09/26/2016 03/23/2017 Inactive Phenytek 300 mg capsule RxNorm: 897666 TAKE ONE CAPSULE BY MOUTH DAILY WITH TWO 200 MG CAPS TO EQUAL 700 MG 09/17/2016 03/11/2017 Inactive Phenytek 200 mg capsule RxNorm: 613593 TAKE TWO CAPSULES BY MOUTH DAILY WITH 300 MG CAPSULE TO EQUAL 700 MG TOTAL DAILY 09/03/2016 01/30/2017 Inactive Xarelto 20 mg tablet RxNorm: 1189939 TAKE ONE TABLET BY MOUTH DAILY 07/23/2016 10/17/2016 Inactive pantoprazole 40 mg tablet,delayed release RxNorm: 268833 TAKE ONE TABLET BY MOUTH TWICE A DAY AT 7 AM AND 9 PM 07/02/2016 12/28/2016 Inactive Xarelto 20 mg tablet RxNorm: 8944259 1 Tablet(s) PO daily 03/25/2016 07/22/2016 Inactive Symbicort 160 mcg-4.5 mcg/actuation HFA aerosol inhaler RxNorm: 0192237 2 Puff(s) INH BID 03/11/2016 No Stop Date Active Phenytek 200 mg capsule RxNorm: 856342 TAKE TWO CAPSULES BY MOUTH DAILY WITH 300 MG CAPSULE TO EQUAL 700 MG TOTAL DAILY 03/08/2016 09/02/2016 Inactive prednisone 20 mg tablet RxNorm: 860200 2 Tablet(s) PO daily 02/23/2016 02/27/2016 Inactive Ventolin HFA 90 mcg/actuation aerosol inhaler RxNorm: 846091 1 Puff(s) INH Q4-6H as needed 02/23/2016 01/12/2017 Inactive Augmentin 875 mg-125 mg tablet RxNorm: 210436 1 Tablet(s) PO BID 02/23/2016 02/25/2016 Inactive nystatin 100,000 unit/gram topical powder RxNorm: 068058 1 Gram(s) TOP TID 01/16/2016 01/25/2016 Inactive Phenergan-Codeine 6.25 mg-10 mg/5 mL syrup RxNorm: 058851 5-10 Milliliter(s) PO Q6 as needed cough 12/01/2015 12/26/2016 Inactive Zithromax 250 mg tablet RxNorm: 409371 1 Tablet(s) PO daily 11/23/2015 11/26/2015 Inactive Zithromax 250 mg tablet RxNorm: 654097 1 Tablet(s) PO daily 11/23/2015 11/22/2015 Inactive Zithromax Z-Kevin 250 mg tablet RxNorm: 287211 1 Tablet(s) PO UD 11/20/2015 11/24/2015 Inactive zpack Kenalog 40 mg/mL suspension for injection RxNorm: 3272869 1 Milliliter(s) Inj 11/20/2015 11/20/2015 Inactive Coumadin 4 mg tablet RxNorm: 358301 TAKE TWO TABLETS BY MOUTH EVERY EVENING FOR 3 DAYS, THEN TAKE TAKE ONE TABLET BY MOUTH EVERY EVENING THEREAFTER 11/20/2015 03/10/2016 Inactive hydrochlorothiazide 25 mg tablet RxNorm: 082571 TAKE ONE TABLET BY MOUTH DAILY 10/11/2015 03/10/2016 Inactive triamcinolone acetonide 0.025 % topical ointment RxNorm: 9960931 1 Application TOP BID 09/01/2015 No Stop Date Active nystatin 100,000 unit/gram topical cream RxNorm: 125908 1 Gram(s) TOP BID 09/01/2015 09/08/2016 Inactive Phenytek 300 mg capsule RxNorm: 497781 1 Capsule(s) PO daily take with two 200mg tablets to equal 700mg 09/01/2015 03/28/2016 Inactive nystatin 100,000 unit/gram topical powder RxNorm: 671854 1 Application TOP 09/01/2015 09/01/2015 Inactive Anucort-HC 25 mg suppository RxNorm: 3193274 1 Suppository RTL BID x 1 week then as needed 08/09/2015 No Stop Date Active Phenytek 300 mg capsule RxNorm: 089851 1 Capsule(s) PO daily take with two 200mg tablets to equal 700mg 08/02/2015 08/31/2015 Inactive Phenytek 200 mg capsule RxNorm: 380512 Capsule(s) TAKE TWO CAPSULES BY MOUTH DAILY. TAKE WITH 300MG CAPSULE TO EQUAL 700MG TOTAL DAILY. 08/02/2015 02/27/2016 Inactive lorazepam 1 mg tablet RxNorm: 604497 1 Tablet(s) PO QID as needed seizure activity 06/26/2015 07/25/2015 Inactive Phenytek 200 mg capsule RxNorm: 234911 TAKE TWO CAPSULES BY MOUTH DAILY. TAKE WITH 300MG CAPSULE TO EQUAL 700MG TOTAL DAILY. 05/25/2015 07/23/2015 Inactive Phenytek 200 mg capsule RxNorm: 428867 TAKE TWO CAPSULES BY MOUTH DAILY. TAKE WITH 300MG CAPSULE TO EQUAL 700MG TOTAL DAILY. 05/03/2015 05/24/2015 Inactive hydrochlorothiazide 25 mg tablet RxNorm: 412590 TAKE ONE TABLET BY MOUTH DAILY 03/27/2015 09/22/2015 Inactive hydrochlorothiazide 25 mg tablet RxNorm: 725640 TAKE ONE TABLET BY MOUTH DAILY 03/27/2015 09/22/2015 Inactive Phenytek 300 mg capsule RxNorm: 776809 1 Capsule(s) PO daily take with 2 200mg tablets to equal 700mg 01/04/2015 08/01/2015 Inactive Coumadin 1 mg tablet RxNorm: 445626 TAKE 1 TABLET BY MOUTH DOCTOR DIRECTED 12/19/2014 03/18/2015 Inactive Coumadin 4 mg tablet RxNorm: 963826 1 Tablet(s) PO QPM when starting, pt to take 4mg two pills nightly x 3 nights then take one pill daily) 12/05/2014 06/25/2015 Inactive Phenytek 200 mg capsule RxNorm: 462990 TAKE TWO CAPSULES BY MOUTH DAILY. TAKE WITH 300MG CAPSULE TO EQUAL 700MG TOTAL DAILY. 11/08/2014 05/02/2015 Inactive metronidazole 500 mg tablet RxNorm: 675996 1 Tablet(s) PO TID 11/01/2014 11/10/2014 Inactive hydrochlorothiazide 25 mg tablet RxNorm: 102644 1 Tablet(s) PO daily 2014 03/26/2015 Inactive Coumadin 1 mg tablet RxNorm: 595834 TAKE 1 TABLET BY MOUTH DOCTOR DIRECTED 08/19/2014 10/31/2014 Inactive Coumadin 1 mg tablet RxNorm: 256488 1 Tablet(s) PO as doctor directed 07/21/2014 08/18/2014 Inactive Coumadin 1 mg tablet RxNorm: 851330 1 Tablet(s) PO as doctor directed 07/21/2014 07/20/2014 Inactive hydrochlorothiazide 12.5 mg tablet RxNorm: 539048 1 Tablet(s) PO daily 06/15/2014 08/28/2014 Inactive Coumadin 5 mg tablet RxNorm: 562470 1 Tablet(s) PO QPM 05/12/2014 10/31/2014 Inactive check lab in 2 weeks Bactrim DS 800 mg-160 mg tablet RxNorm: 641647 1 Tablet(s) PO BID 05/10/2014 05/09/2014 Inactive start after UA given to lab Bactrim DS 800 mg-160 mg tablet RxNorm: 773908 1 Tablet(s) PO BID 05/10/2014 05/16/2014 Inactive start after UA given to lab today Keflex 500 mg capsule RxNorm: 672931 1 Capsule(s) PO TID 04/26/2014 05/05/2014 Inactive Phenytek 300 mg capsule RxNorm: 930425 1 Capsule(s) PO daily 03/29/2014 03/28/2014 Inactive Phenytek 300 mg capsule RxNorm: 275694 1 Capsule(s) PO daily take with 2 200mg tablets to equal 700mg 03/29/2014 10/24/2014 Inactive Phenytek 200 mg capsule RxNorm: 154329 2 Capsule(s) PO daily take with a 300mg capsule to equal 700mg daily 03/29/2014 10/24/2014 Inactive Coumadin 4 mg tablet RxNorm: 607500 1 Tablet(s) PO QPM when starting, pt to take 4mg two pills nightly x 3 nights then take one pill daily) 03/29/2014 05/11/2014 Inactive hydrochlorothiazide 12.5 mg tablet RxNorm: 497694 1 Tablet(s) PO daily 03/29/2014 06/14/2014 Inactive Aspirin Low Dose 81 mg tablet,delayed release RxNorm: 806636 1 Tablet(s) PO daily No Start Date Active Phenergan-Codeine 6.25 mg-10 mg/5 mL syrup RxNorm: 498533 5-10 Milliliter(s) PO Q6 as needed cough No Start Date 11/30/2015 Inactive pantoprazole 40 mg tablet,delayed release RxNorm: 833035 1 Tablet(s) PO daily No Start Date 07/01/2016 Inactive Xarelto 20 mg tablet RxNorm: 6139133 Tablet(s) PO No Start Date 03/24/2016 Inactive 15mg BID x 21 days then 20mg daily lorazepam 0.5 mg tablet RxNorm: 754454 1 Tablet(s) PO as doctor directed for seizures No Start Date 06/25/2015 Inactive Symbicort 160 mcg-4.5 mcg/actuation HFA aerosol inhaler RxNorm: 9125813 inhalation No Start Date 03/10/2016 Inactive Phenytek oral RxNorm: 204818 oral No Start Date 03/28/2014 Inactive metoprolol succinate ER 25 mg tablet,extended release 24 hr RxNorm: 970757 1 Tablet(s) PO daily No Start Date 09/25/2016 Inactive aspirin 325 mg tablet,delayed release RxNorm: 467384 1 Tablet(s) PO QHS No Start Date 03/04/2016 Inactive Medication Administered Medication Codes Instructions Start Date Status Kenalog 40 mg/mL suspension for injection RxNorm: 8005232 1.5Milliliter 11/11/2017 No longer Active Kenalog 40 mg/mL suspension for injection RxNorm: 0714563 1Milliliter 11/20/2015 No longer Active Immunizations Vaccine [...] unspecified ICD-10: J06.9 ICD-9: 465.9 11/20/2015 Other fpc (current) drug therapy ICD-10: Z79.899 ICD-9: V58.69 [...] Item Item Code Result Date Comp Metabolic Dru643 NA 141 mEq/L 09/09/2016 Comp Metabolic Gsr814 K 3.8 mEq/L 09/09/2016 Comp Metabolic Rot240 CL 108 mEq/L 09/09/2016 Comp Metabolic Jle144 CO2 24.0 mEq/L 09/09/2016 Comp Metabolic Jgc008 ANION GAP 13 09/09/2016 Comp Metabolic Nsc946 GLUCOSE 134 mg/dL 09/09/2016 Comp Metabolic Qxi798 Creat 0.8 mg/dL 09/09/2016 Comp Metabolic Gdk591 eGFR 113 ml/min/1.73m2 09/09/2016 Comp Metabolic Cvz384 BUN 16 mg/dL 09/09/2016 Comp Metabolic Wij819 B/C Ratio 21.1 Ratio 09/09/2016 Comp Metabolic Hvq466 CALCIUM 8.8 mg/dL 09/09/2016 Comp Metabolic Kwk719 ALK PHOS 111 U/L 09/09/2016 Comp Metabolic Cbr877 AST(SGOT) 16 U/L 09/09/2016 Comp Metabolic Aoi152 ALT(SGPT) 16 U/L 09/09/2016 Comp Metabolic Hvt235 BILI T 0.4 mg/dL 09/09/2016 Comp Metabolic Wks815 ALBUMIN 3.8 g/dL 09/09/2016 Comp Metabolic Ggt582 TPRO 7.0 g/dL 09/09/2016 Comp Metabolic Vvk244 GLOB 3.2 g/dL 09/09/2016 Comp Metabolic Nhf046 A/G Ratio 1.2 Ratio 09/09/2016 Comp Metabolic Hgu792 Osmo 284 mOsmo 09/09/2016 Cbc With Differential Ord2 WBC 6.45 K/ul 09/09/2016 Cbc With Differential Ord2 RBC 4.32 M/ul 09/09/2016 Cbc With Differential Ord2 HGB 14.1 g/dl 09/09/2016 Cbc With Differential Ord2 Neut% 59.4 % 09/09/2016 Cbc With Differential Ord2 HCT 41.7 % 09/09/2016 Cbc With Differential Ord2 Lymph% 28.4 % 09/09/2016 Cbc With Differential Ord2 MCV 96.5 fl 09/09/2016 Cbc With Differential Ord2 [place]% 10.2 % 09/09/2016 Cbc With Differential Ord2 MCH 32.6 pg 09/09/2016 Cbc With Differential Ord2 Eos% 1.7 % 09/09/2016 Cbc With Differential Ord2 MCHC 33.8 pg 09/09/2016 Cbc With Differential Ord2 PLT 178 K/ul 09/09/2016 Cbc With Differential Ord2 Baso% 0.3 % 09/09/2016 Cbc With Differential Ord2 RDW 13.4 % 09/09/2016 Cbc With Differential Ord2 Neut ABS# 3.83 K/ul 09/09/2016 Cbc With Differential Ord2 Lymph ABS# 1.83 K/ul 09/09/2016 Cbc With Differential Ord2 [place] ABS# 0.7 K/ul 09/09/2016 Cbc With Differential [...] 67.2 % 12/26/2015 Cbc With Differential Ord2 Lymph% 22.3 % 12/26/2015 Cbc With Differential Ord2 MCV 99.4 fl 12/26/2015 Cbc With Differential Ord2 MCH 34.3 pg 12/26/2015 Cbc With Differential Ord2 [place]% 8.7 % 12/26/2015 Cbc With Differential Ord2 [...] 1.71 K/ul 12/26/2015 Cbc With Differential Ord2 [place] ABS# 0.7 K/ul 12/26/2015 Cbc With Differential Ord2 Eos ABS# 0.1 K/ul 12/26/2015 Cbc With Differential Ord2 Baso ABS# 0.0 K/ul 12/26/2015 Tsh Ord6 hTSH II 2.81 uIU/mL 12/26/2015 Comp Metabolic Olf595 NA 137 mEq/L 12/26/2015 Comp Metabolic Tcn094 K 4.3 mEq/L 12/26/2015 Comp Metabolic Afl511 CL 101 mEq/L 12/26/2015 Comp Metabolic Mpe456 CO2 27.0 mEq/L 12/26/2015 Comp Metabolic Lfu515 ANION GAP 13 12/26/2015 Comp Metabolic Hjo636 GLUCOSE 128 mg/dL 12/26/2015 Comp Metabolic Ran683 Creat 0.8 mg/dL 12/26/2015 Comp Metabolic Can180 eGFR 104 ml/min/1.73m2 12/26/2015 Comp Metabolic Qmo619 BUN 16 mg/dL 12/26/2015 Comp Metabolic Jxm321 B/C Ratio 19.5 Ratio 12/26/2015 Comp Metabolic Wme303 CALCIUM 9.2 mg/dL 12/26/2015 Comp Metabolic Ibr928 ALK PHOS 107 U/L 12/26/2015 Comp Metabolic Amw524 AST(SGOT) 15 U/L 12/26/2015 Comp Metabolic Elf334 ALT(SGPT) 15 U/L 12/26/2015 Comp Metabolic Hla739 BILI T 0.4 mg/dL 12/26/2015 Comp Metabolic Nfl950 ALBUMIN 4.0 g/dL 12/26/2015 Comp Metabolic Qva332 TPRO 7.6 g/dL 12/26/2015 Comp Metabolic Pir222 GLOB 3.6 g/dL 12/26/2015 Comp Metabolic Dgi981 A/G Ratio 1.1 Ratio 12/26/2015 Comp Metabolic Jlo213 Osmo 277 mOsmo 12/26/2015 Dilantin Ord7 DILANTIN [...] J3301 11/11/2017 OCCULT BLOOD FECES CPT- 4: 73476 10/28/2017 TRIAMCINOLONE ACET INJ NOS CPT-4: J3301 11/20/2015 Vital Signs Date Vital 02/12/2018 Blood Pressure 1: 134/80 Code: 8480-6 BMI: 48.7 Code: 13590-3 Heart Rate 1: 78 bpm Height: 5'11" SpO2: 96% Weight: 349 lbs 01/28/2018 Blood Pressure 1: 140/80 Code: 8480-6 BMI: 48.3 Code: 33801-1 Heart Rate 1: 78 bpm Height: 5'11" SpO2: 94% Temperature: 36.7 (C) / 98.1 (F) Weight: 346 lbs 11/11/2017 Blood Pressure 1: 144/82 Code: 8480-6 BMI: 47.1 Code: 73655-3 Heart Rate 1: 73 bpm Height: 5'11" SpO2: 94% Temperature: 36.9 (C) / 98.5 (F) Weight: 338 lbs 10/17/2017 Blood Pressure 1: 136/78 Code: 8480-6 BMI: 47.1 Code: 01427-2 Heart Rate 1: 82 bpm Height: 5'11" SpO2: 96% Weight: 338 lbs 06/06/2017 Blood Pressure 1: 138/76 Code: 8480-6 BMI: 47.4 Code: 27875-7 Heart Rate 1: 76 bpm Height: 5'11" SpO2: 96% Weight: 340 lbs 04/11/2017 Blood Pressure 1: 142/80 Code: 8480-6 Heart Rate 1: 79 bpm Height: 5'11" SpO2: 96% 01/27/2017 Blood Pressure 1: 146/86 Code: 8480-6 BMI: 47.1 Code: 78067-9 Heart Rate 1: 97 bpm Height: 5'11" SpO2: 95% Weight: 338 lbs 12/27/2016 Blood Pressure 1: 154/74 Code: 8480-6 BMI: 48.5 Code: 03956-3 Heart Rate 1: 82 bpm Height: 5'11" SpO2: 96% Weight: 348 lbs 10/09/2016 Blood Pressure 1: 160/82 Code: 8480-6 BMI: 47.4 Code: 16639-0 Heart Rate 1: 77 bpm Height: 5'11" SpO2: 96% Weight: 340 lbs 09/09/2016 Blood Pressure 1: 140/80 Code: 8480-6 Heart Rate 1: 88 bpm Height: 5'11" SpO2: 96% Weight: 05/31/2016 Blood Pressure 1: 126/78 Code: 8480-6 BMI: 46.3 Code: 09524-7 Heart Rate 1: 75 bpm Height: 5'11" SpO2: 96% Weight: 332 lbs 03/29/2016 Blood Pressure 1: 146/78 Code: 8480-6 Heart Rate 1: 78 bpm Height: 5'11" SpO2: 97% Weight: 03/11/2016 Blood Pressure 1: 136/86 Code: 8480-6 BMI: 44.4 Code: 40578-5 Heart Rate 1: 77 bpm Height: 5'11" SpO2: 96% Weight: 318 lbs 02/23/2016 Blood Pressure 1: 146/94 Code: 8480-6 BMI: 44.4 Code: 05911-1 Heart Rate 1: 90 bpm Height: 5'11" SpO2: 93% Weight: 318 lbs 01/16/2016 Blood Pressure 1: 140/86 Code: 8480-6 BMI: 44.6 Code: 71759-9 Heart Rate 1: 75 bpm Height: 5'11" SpO2: 96% Weight: 320 lbs 12/26/2015 Blood Pressure 1: 130/78 Code: 8480-6 BMI: 43.7 Code: 36651-2 Heart Rate 1: 96 bpm Height: 5'11" SpO2: 98% Weight: 313 lbs 11/20/2015 Blood Pressure 1: 137/92 Code: 8480-6 Heart Rate 1: 84 bpm Height: SpO2: 98% Temperature: 36.7 (C) / 98.0 (F) Weight: 09/01/2015 Blood Pressure 1: 148/88 Code: 8480-6 BMI: 43.8 Code: 07835-7 Heart Rate 1: 73 bpm Height: 5'11" SpO2: 97% Weight: 314 lbs 08/09/2015 Blood Pressure 1: 138/78 Code: 8480-6 BMI: 45.0 Code: 80875-0 Heart Rate 1: 75 bpm Height: 5'11" SpO2: 98% Weight: 323 lbs 06/26/2015 Blood Pressure 1: 134/80 Code: 8480-6 BMI: 46.3 Code: 02425-5 Heart Rate 1: 78 bpm Height: 5'11" SpO2: 96% Weight: 332 lbs 11/18/2014 Blood Pressure 1: 130/78 Code: 8480-6 BMI: 44.4 Code: 23498-4 Heart Rate 1: 66 bpm Height: 5'11" SpO2: 98% Weight: 318 lbs 11/01/2014 Blood Pressure 1: 130/78 Code: 8480-6 BMI: 44.5 Code: 07883-5 Heart Rate 1: 78 bpm Height: 5'11" SpO2: 97% Weight: 319 lbs 10/27/2014 Blood Pressure 1: 152/88 Code: 8480-6 BMI: 43.9 Code: 07170-5 Heart Rate 1: 91 bpm Height: 5'11" SpO2: 98% Weight: 315 lbs 2014 Blood Pressure 1: 140/82 Code: 8480-6 BMI: 44.9 Code: 98198-6 Heart Rate 1: 78 bpm Height: 5'11" Weight: 322 lbs 05/05/2014 Blood Pressure 1: 142/88 Code: 8480-6 BMI: 40.9 Code: 43068-6 Heart Rate 1: 64 bpm Height: 5'11" Temperature: 37.3 (C) / 99.1 (F) Weight: 293 lbs 04/26/2014 Blood Pressure 1: 142/82 Code: 8480-6 BMI: 40.2 Code: 94616-3 Heart Rate 1: 64 bpm Height: 5'11" Weight: 288 lbs 03/29/2014 Blood Pressure 1: 138/84 Code: 8480-6 BMI: 39.3 Code: 47056-2 Heart Rate 1: 84 bpm Height: 5'11" [...] data Encounters Encounter Performer Location Codes Date 22881 EST. PATIENT, LEVEL IV Diagnosis: Essential (primary) hypertension[ICD10: I10] Diagnosis: Epilepsy, unspecified, not intractable, without status epilepticus[ICD10: G40.909] Diagnosis: Cough[ICD10: R05] Diagnosis: Other allergic rhinitis[ICD10: J30.89] Elsie Salamanca MD, [facility] CPT- 4: 87956 02/12/2018 [id number] EST. PATIENT, LEVEL III Diagnosis: Acute laryngopharyngitis[ICD10: J06.0] Diagnosis: Other allergic rhinitis[ICD10: J30.89] Diagnosis: Encounter for therapeutic drug level monitoring[ICD10: Z51.81] Elsie Salamanca MD, [facility] CPT-4: 32182 01/28/2018 [id number] EST. PATIENT, LEVEL III Diagnosis: Other acute sinusitis[ICD10: J01.80] Diagnosis: Other allergic rhinitis[ICD10: J30.89] Diagnosis: Cough[ICD10: R05] Elsie Salamanca MD, [facility] CPT-4: 25483 11/11/2017 [id number] EST. PATIENT, LEVEL IV Diagnosis: Essential (primary) hypertension[ICD10: I10] Diagnosis: Epilepsy, unspecified, not intractable, without status epilepticus[ICD10: G40.909] Elsie Salamanca MD, [facility] CPT-4: 12867 10/17/2017 [id number] EST. PATIENT, LEVEL IV Diagnosis: Essential (primary) hypertension[ICD10: I10] Diagnosis: Epilepsy, unspecified, not intractable, without status epilepticus[ICD10: G40.909] Elsie Salamanca MD, [facility] CPT-4: 78505 06/06/2017 [id number] EST. PATIENT, LEVEL IV Diagnosis: Essential (primary) hypertension[ICD10: I10] Diagnosis: Epilepsy, unspecified, not intractable, without status epilepticus[ICD10: G40.909] Elsie Salamanca MD, [facility] CPT-4: 05843 04/11/2017 ([id number]) 00299 EST. PATIENT, LEVEL III Diagnosis: Essential (primary) hypertension[ICD10: I10] Diagnosis: Epilepsy, unspecified, not intractable, without status epilepticus[ICD10: G40.909] Leelee Salamanca MD, [facility] CPT-4: 96222 01/27/2017 ([id number]) 33799 EST. PATIENT, LEVEL IV Diagnosis: Essential (primary) hypertension[ICD10: I10] Diagnosis: Epilepsy, unspecified, not intractable, without status epilepticus[ICD10: G40.909] Diagnosis: Pain in right wrist[ICD10: M25.531] Leelee Salamanca MD, [facility] CPT-4: 26385 12/27/2016 81407 EST. PATIENT, LEVEL III Diagnosis: Rash and other nonspecific skin eruption[ICD10: R21] Elsie Salamanca MD, [facility] CPT-4: 23597 10/09/2016 ([id number]) 17626 EST. PATIENT, LEVEL III Diagnosis: Carpal tunnel syndrome, right upper limb[ICD10: G56.01] Diagnosis: Olecranon bursitis, right elbow[ICD10: M70.21] Betty Salamanca MD, [facility] CPT-4: 25310 09/09/2016 ([id number]) 10612 EST. PATIENT, LEVEL III Diagnosis: Essential (primary) hypertension[ICD10: I10] Diagnosis: Low back pain[ICD10: M54.5] Leelee Salamanca MD, [facility] CPT-4: 17833 05/31/2016 ([id number]) 10956 EST. PATIENT, LEVEL III Diagnosis: Essential (primary) hypertension[ICD10: I10] Diagnosis: Slow transit constipation[ICD10: K59.01] Leelee Salamanca MD, [facility] CPT-4: 07788 03/29/2016 ([id number]) [id number] EST. 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 PATIENT, LEVEL III Diagnosis: Acute laryngopharyngitis[ICD10: J06.0] Diagnosis: Other allergic rhinitis[ICD10: J30.89] Diagnosis: Cough[ICD10: R05] Diagnosis: Wheezing[ICD10: R06.2] Elsie Salamanca MD, [facility] CPT-4: 48337 02/23/2016 ([id number]) [id number] EST. PATIENT, LEVEL III Diagnosis: Epilepsy, unspecified, not intractable, without status epilepticus[ICD10: G40.909] Betty Salamanca MD, [facility] CPT-4: 04164 01/16/2016 ([id number]) 60877 EST. PATIENT, LEVEL IV Diagnosis: Essential (primary) hypertension[ICD10: I10] Diagnosis: Morbid (severe) obesity due to excess calories[ICD10: E66.01] Diagnosis: Epilepsy, unspecified, not intractable, without status epilepticus[ICD10: G40.909] [facility] CPT-4: 91876 12/26/2015 ([id number]) 79816 EST. PATIENT, LEVEL III Diagnosis: Allergic rhinitis due to pollen[ICD10: J30.1] Diagnosis: Acute upper respiratory infection, unspecified[ICD10: J06.9] [facility] CPT-4: 43260 11/20/2015 62537 EST. PATIENT, LEVEL IV Diagnosis: Other fpc (current) drug therapy[ICD10: Z79.899] Diagnosis: Candidiasis of skin and nail[ICD10: B37.2] [facility] CPT-4: 26295 09/01/2015 ([id number]) 48343 EST. PATIENT, LEVEL IV Diagnosis: Epilepsy, unspecified, not intractable, without status epilepticus[ICD10: G40.909] Diagnosis: Essential (primary) hypertension[ICD10: I10] Diagnosis: First degree hemorrhoids[ICD10: K64.0] Diagnosis: Low back pain[ICD10: M54.5] [facility] CPT-4: 17256 08/09/2015 ([id number]) 07614 EST. PATIENT, LEVEL IV Diagnosis: Essential (primary) hypertension[ICD10: I10] Diagnosis: Morbid (severe) obesity due to excess calories[ICD10: E66.01] Diagnosis: Epilepsy, unspecified, not intractable, without status epilepticus[ICD10: G40.909] [facility] CPT-4: 70826 06/26/2015 ([id number]) 11282 EST. PATIENT, LEVEL IV Diagnosis: ESSENTIAL HYPERTENSION[ICD9: 401.9] Diagnosis: Small bowel obstruction[ICD9: 560.9] Diagnosis: Hospital discharge follow-up[ICD9: V67.59] [facility] CPT-4: 59071 11/18/2014 ([id number] 83564 EST. PATIENT, LEVEL III Diagnosis: Diarrhea[ICD9: 787.91] Diagnosis: Abdominal pain[ICD9: 789.00] Betty Salamanca MD [facility] CPT-4: 78258 11/01/2014 ([id number] 11357 EST. PATIENT, LEVEL III Diagnosis: ESSENTIAL HYPERTENSION[ICD9: 401.9] Diagnosis: Diarrhea[ICD9: 787.91] Leelee Salamanca MD, [facility] CPT-4: 53593 10/27/2014 ([id number]) 01207 EST. PATIENT, LEVEL IV Diagnosis: Factor V Leiden mutation[ICD9: 289.81] Diagnosis: Hx of deep venous thrombosis[ICD9: V12.51] Diagnosis: ESSENTIAL HYPERTENSION[ICD9: 401.9] Diagnosis: OBESITY[ICD9: 278.00] Betty Salamanca MD [facility] CPT-4: 54195 2014 ([id number]) 77456 EST. PATIENT, LEVEL III Diagnosis: Hematuria[ICD9: 599.70] Diagnosis: LONG-TERM USE ANTICOAGUL[ICD9: V58.61] Leelee Salamanca MD, [facility] CPT-4: 14749 05/05/2014 ([id number]) 28378 EST. PATIENT, LEVEL IV Diagnosis: ESSENTIAL HYPERTENSION[ICD9: 401.9] Diagnosis: LONG-TERM USE ANTICOAGUL[ICD9: V58.61] Diagnosis: MORBID OBESITY[ICD9: 278.01] Diagnosis: Abscess and cellulitis[ICD9: 682.9] Betty Salamanca MD, [facility] CPT- 4: 18631 04/26/2014 ([id number]) OFFICE VISIT, NEW - LEVEL 4 Diagnosis: ESSENTIAL HYPERTENSION[ICD9: 401.9] Diagnosis: LONG-TERM USE ANTICOAGUL[ICD9: V58.61] Betty Salamanca MD, [facility] CPT-4: 88727 03/29/2014 Plan of Care Planned Activity Notes [...] allergy spray. 02/12/2018 Appointment: Elsie Mosquera WPtel: [phone] [facility] (15 min) Moderate 02/12/2018 Patient Education: Patient [...] allergy spray. 01/28/2018 Appointment: [facility]quera [phone] (15 min) Moderate 01/28/2018 Patient Education: Patient [...] allergy spray. 11/11/2017 Appointment: Elsie Mosquera WPtel: [address] [place], [place] [address] (15 min) Moderate 11/11/2017 Patient Education: Patient [...] for weight check. 10/17/2017 Appointment: Elsie Mosqueratel: [phone] [facility] (15 min) Moderate 10/17/2017 Patient Education: Patient Medication Summary Completed 10/17/2017 Appointment: Elsie Mosquera WPtel: [phone] [facility] (15 min) Moderate 10/07/2017 Care Plan: BMI Above normal followup SELF-MGMT EDUC & TRAIN 1 PT Pending 06/09/2017 Visit Plan: Hypertension - improved - continue with current medications, continue with no added salt diet. Pt has been encouraged to exercise daily. The pt has been advised to call the office if there are any [place] concerns about change in blood pressure readings at home. Epilepsy- controlled, no changes, continue to monitor Obesity - chronic issue with this patient. The pt has been counseled about diet changes, calorie restriction, and need to exercise. Pt will RTC in one month for weight check. 06/06/2017 Appointment: Elsie Mosqueral: [address] [place], [place] [phone] [place] (30 min) Complex 06/06/2017 Patient Education: [...] the office if there are any [place] concerns about change in blood pressure readings at home. Epilepsy- controlled, no changes, continue to monitor Obesity - chronic issue with this patient. The pt has been counseled about diet changes, calorie restriction, and need to exercise. Pt will RTC in one month for weight check. 04/11/2017 Appointment: Elsie Mosqueratel: [facility]1 [facility] [place] (30 min) Complex 04/11/2017 Patient Education: Patient Medication Summary Completed 04/11/2017 Patient Education: Obesity Completed 04/11/2017 Appointment: Elsie Mosquera WPtel: [facility]5 [facility] (30 min) Complex 04/01/2017 Visit Plan: Hypertension - improved - continue with current medications, continue with no added salt diet. Pt has been encouraged to exercise daily. The pt has been advised to call the office if there are any [place] concerns about change in blood pressure readings at home. Obesity-lost 10#- continue diet/exercise Epilepsy-check dilantin level 01/27/2017 Appointment: Leelee Weinstein WPtel: [facility]0 [phone] (30 min) Complex 01/27/2017 Patient Education: Patient [...] Dr Ordaz 12/27/2016 Appointment: Leelee Weinstein WPtel: [facility]5 [phone] (30 min) Complex 12/27/2016 Patient Education: Patient Medication Summary Completed 12/27/2016 Care Plan: Referral Order SNOMED-CT : [id number] Pending 12/27/2016 Visit Plan: Rash - pt [...] Obesity Completed 10/09/2016 Appointment: Leelee Weinstein WPtel: [phone] [place] (30 min) Complex 10/04/2016 Visit Plan: on the rash on your foot, use benadryl cream mixed with cortisone cream - use a jerica size portion of both Carpal tunnel -wear a carpal tunnel brace at night and a tennis elbow brace during the day use aspercreme on your elbow and wrist at least twice a day 09/09/2016 Appointment: Betty Salamanca WPtel: [facility]3 [facility] (15 min) Moderate 09/09/2016 Patient Education: Patient [...] not improve. 05/31/2016 Appointment: Leelee Weinstein WPtel: [facility]4 [phone] [place] (30 min) Complex 05/31/2016 Patient Education: Patient Medication Summary Completed 05/31/2016 Patient Education: Obesity Completed 05/31/2016 Patient Education: Hypertension Completed 05/31/2016 Appointment: Leelee Weinstein WPtel: [facility]9 [phone] [place] (30 min) Complex 04/01/2016 Visit Plan: Hypertension [...] plan. 03/29/2016 Appointment: Leelee Weinstein WPtel: [phone] [phone] (15 min) Moderate 03/29/2016 Patient Education: Patient Medication Summary Completed 03/29/2016 Patient Education: Hypertension Completed 03/29/2016 Visit Plan: Bilateral PE-hospital follow up-on xarelto-symptoms improving Ykmdt-cnlfnazdwl-uawujxhx-continue symbicort twice daily as directed Hypertension - well controlled - continue with current medications, continue with no added salt diet. Pt has been encouraged to exercise daily. The pt has been advised to call the office if there are any acute concerns about change in blood pressure readings at home. 03/11/2016 Appointment: Leelee Weinstein WPtel: [phone] [phone] (30 min) Complex 03/11/2016 Patient Education: Patient [...] spray. 02/23/2016 Appointment: Elsie Mosquera WPtel: [phone] [facility] [place] (15 min) Moderate 02/23/2016 Patient Education: Patient Medication Summary Completed 02/23/2016 Patient Education: Obesity Completed 02/23/2016 Visit Plan: Epilepsy - continue with phenytek wound improving 01/16/2016 Appointment: Betty Salamanca WPtel: [phone] [facility] [place] (15 min) Moderate 01/16/2016 Patient Education: Patient [...] anti-epileptic 12/26/2015 Appointment: Betty Salamanca WPtel: [phone] [facility] (15 min) Moderate 12/26/2015 Patient Education: Patient [...] not resolve 11/20/2015 Appointment: Leelee Weinstein WPtel: [address] [phone] [place] (15 min) Moderate 11/20/2015 Patient Education: Patient [...] pain. 09/01/2015 Appointment: Leelee Weinstein [facility]Ptel: [phone] (30 min) [facility] 09/01/2015 Patient Education: Patient Medication Summary Completed 09/01/2015 Referral: Ady Oswald WPtel:[phone] Referral Completed 08/30/2015 Visit Plan: Hypertension - [...] 08/09/2015 Care Plan: Referral Order SNOMED-CT : [id number] Pending 07/12/2015 Visit Plan: Hypertension - well [...] flagyl. 11/01/2014 [facility]ment[phone] (15 min) Moderate 11/01/2014 Patient Education: [...] closely - 2014 Appointment: Betty Salamanca WPtel: [facility] [facility] 2014 Patient Education: Patient Medication Summary Completed 2014 Patient Education: Hypertension Completed 2014 Care Plan: Referral Order SNOMED-CT : [id number] Ordered 2014 Visit Plan: Hematuria-per patient report-no [...] weight check. 04/26/2014 Appointment: Betty Salamanca WPtel: [address] [place], [place] [address] Follow up 04/26/2014 Patient Education: Patient Medication [...] and 3.5. 03/29/2014 Appointment: [facility]el[phone] [facility] 03/29/2014 Patient Education: Patient Medication Summary Completed 03/29/2014 Patient Education: Hypertension Completed 03/29/2014 Referral: Madhu Hall MD WPtel: [address] [place] Referral Completed Referral: Edilson Ordaz [facility] [place] Referral Appointment Requested Referral: Ady Oswald WPtel:[phone] Referral Appointment Requested Instructions Comment . Hypertension [...] treatment of seizure disorder. . Hypertension - well controlled - continue [...] if symptoms uncontrolled-patient verbalized understanding of plan. . Hypertension - well controlled - continue [...] is worsening or does not improve. . Rash - pt is to use [...] Epilepsy - continue with phenytek wound improving increase hctz to 25mg daily. . Hypertension [...] and wrist at least twice a day Symbicort sample given . Bilateral PE-hospital follow up-on xarelto-symptoms improving Srohh-yyiskhyzvx-uspdqfle-continue symbicort twice daily as directed Hypertension - [...] stable - no change in medications. . Allergies - chronic - recommended pt [...] take if symptoms do not resolve . Sinusitis - Pt has acute infection [...] spray in the nasal steroid allergy spray. LABS IN 1 MONTH AT [facility] REFER TO DR ORDAZ FOR RIGHT WRIST [...] Right wrist pain-refer to Dr Ordaz . Hypertension - well controlled - continue [...]
[2018-09-06] MEDS ORDERED: fentaNYL INJECTION 100 MCG/2 ML AMP IVP ONE (06:00)
--- OUTSIDE RECORDS SUMMARY | 2018-09-06 06:03 | XMS REPORT | CCD ---
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 Name Role Phone PP Unavailable CCM Unavailable Summary Purpose Interface Exchange Insurance Providers Payer name Policy type / Coverage type Covered libertarian ID Effective Begin Date Effective End Date Blue Cross Blue Shield [facility] Blue Cross/Blue Shield [id number] Unknown Unknown Family history Father Diagnosis Age At Onset Coronary Artery Disease Unknown Mother Diagnosis Age At Onset Cancer Unknown Cancer Unknown Social History Social History Element Codes Description Effective Dates Number of children Unknown 0 06/26/2015 Employment Unknown 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[employer] 06/26/[address]: 708832114 Never smoker 06/26/[address]: 298100992 Never drinks alcohol 06/26/2015 Marital status Unknown [...] 477.0 ICD-10: J30.1 Active 11/19/2015 Unknown Other rn long term care (current) drug therapy ICD-9: V58.69 ICD-10: Z79.899 [...] ICD-9: 477.0 ICD-10: J30.1 11/19/2015 Active Other residential (current) drug therapy ICD-9: V58.69 ICD-10: Z79.899 [...] Start Date Stop Date Status Fill Instructions pantoprazole 40 mg tablet,delayed release RxNorm: 451807 TAKE ONE TABLET BY MOUTH TWICE A DAY AT 7AM AND 9PM 07/06/2018 01/01/2019 Active Zyrtec 10 mg tablet RxNorm: 7502874 1 Tablet(s) PO daily 03/13/2018 07/10/2018 Active Zyrtec 10 mg tablet RxNorm: 7082409 1 Tablet(s) PO daily 02/12/2018 03/12/2018 Inactive Phenytek 200 mg capsule RxNorm: 284145 Capsule(s) TAKE TWO CAPSULES BY MOUTH DAILY WITH 300 MG CAPSULE TO EQUAL 700 MG TOTAL DAILY 01/28/2018 06/26/2018 Inactive MUST HAVE BRAND NAME MEDICATION Phenytek 300 mg capsule RxNorm: 769066 Capsule(s) TAKE ONE CAPSULE BY MOUTH DAILY WITH TWO 200 MG CAPS TO EQUAL 700 MG 01/28/2018 06/26/2018 Inactive MUST HAVE BRAND NAME MEDICATION Augmentin 875 mg-125 mg tablet RxNorm: 351840 1 Tablet(s) PO BID 01/28/2018 01/30/2018 Inactive prednisone 20 mg tablet RxNorm: 050630 2 Tablet(s) PO daily 01/28/2018 02/01/2018 Inactive Phenytek 300 mg capsule RxNorm: 029403 Capsule(s) TAKE ONE CAPSULE BY MOUTH DAILY WITH TWO 200 MG CAPS TO EQUAL 700 MG 01/22/2018 01/27/2018 Inactive Xarelto 20 mg tablet RxNorm: 2430124 TAKE ONE TABLET BY MOUTH DAILY 01/19/2018 07/17/2018 Active pantoprazole 40 mg tablet,delayed release RxNorm: 608776 TAKE ONE TABLET BY MOUTH TWICE A DAY AT 7AM AND 9PM 01/06/2018 07/04/2018 Inactive metoprolol succinate ER 25 mg tablet,extended release 24 hr RxNorm: 795593 Tablet(s) TAKE ONE TABLET BY MOUTH DAILY 12/11/2017 09/06/2018 Active Phenytek 200 mg capsule RxNorm: 538044 TAKE TWO CAPSULES BY MOUTH DAILY WITH 300 MG CAPSULE TO EQUAL 700 MG TOTAL DAILY 12/11/2017 01/27/2018 Inactive cefdinir 300 mg capsule RxNorm: 782836 1 Capsule(s) PO BID 11/14/2017 11/23/2017 Inactive cefdinir 300 mg capsule RxNorm: 765760 1 Capsule(s) PO BID 11/14/2017 11/13/2017 Inactive Phenergan with Codeine Syrup RxNorm: 5-10 Milliliter(s) PO QID as needed cough 11/11/2017 No Stop Date Active Zithromax Z-Kevin 250 mg tablet RxNorm: 884220 1 Tablet(s) PO UD 11/11/2017 No Stop Date Active prednisone 10 mg tablet RxNorm: 400235 Tablet(s) PO UD 11/11/2017 No Stop Date Active 6,5,4,3,2,1 Kenalog 40 mg/mL suspension for injection RxNorm: 4235351 1.5 Milliliter(s) Inj 11/11/2017 11/11/2017 Inactive metoprolol succinate ER 25 mg tablet,extended release 24 hr RxNorm: 245777 TAKE ONE TABLET BY MOUTH DAILY 09/15/2017 12/10/2017 Inactive Phenytek 300 mg capsule RxNorm: 445732 TAKE ONE CAPSULE BY MOUTH DAILY WITH TWO 200 MG CAPS TO EQUAL 700 MG 09/09/2017 01/21/2018 Inactive Phenytek 200 mg capsule RxNorm: 456006 TAKE TWO CAPSULES BY MOUTH DAILY WITH 300 MG CAPSULE TO EQUAL 700 MG TOTAL DAILY 08/26/2017 12/10/2017 Inactive pantoprazole 40 mg tablet,delayed release RxNorm: 314059 TAKE ONE TABLET BY MOUTH TWICE A DAY AT 7AM AND 9PM 08/11/2017 01/05/2018 Inactive Xarelto 20 mg tablet RxNorm: 7088452 Tablet(s) TAKE ONE TABLET BY MOUTH DAILY 06/25/2017 01/18/2018 Inactive metoprolol succinate ER 25 mg tablet,extended release 24 hr RxNorm: 465417 TAKE ONE TABLET BY MOUTH DAILY 06/20/2017 09/14/2017 Inactive Phenytek 200 mg capsule RxNorm: 986685 TAKE TWO CAPSULES BY MOUTH DAILY WITH 300 MG CAPSULE TO EQUAL 700 MG TOTAL DAILY 06/02/2017 08/25/2017 Inactive metoprolol succinate ER 25 mg tablet,extended release 24 hr RxNorm: 143433 TAKE ONE TABLET BY MOUTH DAILY 03/24/2017 06/19/2017 Inactive Phenytek 300 mg capsule RxNorm: 062431 TAKE ONE CAPSULE BY MOUTH DAILY WITH TWO 200 MG CAPS TO EQUAL 700 MG 03/12/2017 09/07/2017 Inactive Phenytek 200 mg capsule RxNorm: 766090 TAKE TWO CAPSULES BY MOUTH DAILY WITH 300 MG CAPSULE TO EQUAL 700 MG TOTAL DAILY 02/03/2017 06/01/2017 Inactive pantoprazole 40 mg tablet,delayed release RxNorm: 362697 TAKE ONE TABLET BY MOUTH TWICE A DAY AT 7AM AND 9PM 01/27/2017 07/25/2017 Inactive Ventolin HFA 90 mcg/actuation aerosol inhaler RxNorm: 911416 INHALE ONE PUFF BY MOUTH EVERY 4 TO 6 HOURS NEEDED 01/13/2017 03/19/2017 Inactive mupirocin 2 % topical ointment RxNorm: 127539 1 Application TOP BID 12/27/2016 01/05/2017 Inactive Xarelto 20 mg tablet RxNorm: 8043434 TAKE ONE TABLET BY MOUTH DAILY 11/28/2016 06/24/2017 Inactive Xarelto 20 mg tablet RxNorm: 4587499 TAKE ONE TABLET BY MOUTH DAILY 10/18/2016 11/27/2016 Inactive prednisone 10 mg tablet RxNorm: 276358 Tablet(s) PO UD 10/16/2016 10/21/2016 Inactive 6,5,4,3,2,1 prednisone 10 mg tablet RxNorm: 756840 Tablet(s) PO UD 10/16/2016 10/15/2016 Inactive 6,5,4,3,2,1 prednisone 20 mg tablet RxNorm: 475078 2 Tablet(s) PO daily 10/09/2016 10/13/2016 Inactive metoprolol succinate ER 25 mg tablet,extended release 24 hr RxNorm: 329750 TAKE ONE TABLET BY MOUTH DAILY 09/26/2016 03/23/2017 Inactive Phenytek 300 mg capsule RxNorm: 250269 TAKE ONE CAPSULE BY MOUTH DAILY WITH TWO 200 MG CAPS TO EQUAL 700 MG 09/17/2016 03/11/2017 Inactive Phenytek 200 mg capsule RxNorm: 010967 TAKE TWO CAPSULES BY MOUTH DAILY WITH 300 MG CAPSULE TO EQUAL 700 MG TOTAL DAILY 09/03/2016 01/30/2017 Inactive Xarelto 20 mg tablet RxNorm: 5235408 TAKE ONE TABLET BY MOUTH DAILY 07/23/2016 10/17/2016 Inactive pantoprazole 40 mg tablet,delayed release RxNorm: 762940 TAKE ONE TABLET BY MOUTH TWICE A DAY AT 7 AM AND 9 PM 07/02/2016 12/28/2016 Inactive Xarelto 20 mg tablet RxNorm: 3307216 1 Tablet(s) PO daily 03/25/2016 07/22/2016 Inactive Symbicort 160 mcg-4.5 mcg/actuation HFA aerosol inhaler RxNorm: 9048971 2 Puff(s) INH BID 03/11/2016 No Stop Date Active Phenytek 200 mg capsule RxNorm: 127952 TAKE TWO CAPSULES BY MOUTH DAILY WITH 300 MG CAPSULE TO EQUAL 700 MG TOTAL DAILY 03/08/2016 09/02/2016 Inactive prednisone 20 mg tablet RxNorm: 400234 2 Tablet(s) PO daily 02/23/2016 02/27/2016 Inactive Ventolin HFA 90 mcg/actuation aerosol inhaler RxNorm: 660150 1 Puff(s) INH Q4-6H as needed 02/23/2016 01/12/2017 Inactive Augmentin 875 mg-125 mg tablet RxNorm: 818091 1 Tablet(s) PO BID 02/23/2016 02/25/2016 Inactive nystatin 100,000 unit/gram topical powder RxNorm: 006385 1 Gram(s) TOP TID 01/16/2016 01/25/2016 Inactive Phenergan-Codeine 6.25 mg-10 mg/5 mL syrup RxNorm: 764146 5-10 Milliliter(s) PO Q6 as needed cough 12/01/2015 12/26/2016 Inactive Zithromax 250 mg tablet RxNorm: 993852 1 Tablet(s) PO daily 11/23/2015 11/26/2015 Inactive Zithromax 250 mg tablet RxNorm: 353582 1 Tablet(s) PO daily 11/23/2015 11/22/2015 Inactive Zithromax Z-Kevin 250 mg tablet RxNorm: 908352 1 Tablet(s) PO UD 11/20/2015 11/24/2015 Inactive zpaboy Kenalog 40 mg/mL suspension for injection RxNorm: 6013929 1 Milliliter(s) Inj 11/20/2015 11/20/2015 Inactive Coumadin 4 mg tablet RxNorm: 943140 TAKE TWO TABLETS BY MOUTH EVERY EVENING FOR 3 DAYS, THEN TAKE TAKE ONE TABLET BY MOUTH EVERY EVENING THEREAFTER 11/20/2015 03/10/2016 Inactive hydrochlorothiazide 25 mg tablet RxNorm: 089831 TAKE ONE TABLET BY MOUTH DAILY 10/11/2015 03/10/2016 Inactive triamcinolone acetonide 0.025 % topical ointment RxNorm: 4180982 1 Application TOP BID 09/01/2015 No Stop Date Active nystatin 100,000 unit/gram topical cream RxNorm: 343885 1 Gram(s) TOP BID 09/01/2015 09/08/2016 Inactive Phenytek 300 mg capsule RxNorm: 087619 1 Capsule(s) PO daily take with two 200mg tablets to equal 700mg 09/01/2015 03/28/2016 Inactive nystatin 100,000 unit/gram topical powder RxNorm: 865909 1 Application TOP 09/01/2015 09/01/2015 Inactive Anucort-HC 25 mg suppository RxNorm: 3293530 1 Suppository RTL BID x 1 week then as needed 08/09/2015 No Stop Date Active Phenytek 300 mg capsule RxNorm: 751005 1 Capsule(s) PO daily take with two 200mg tablets to equal 700mg 08/02/2015 08/31/2015 Inactive Phenytek 200 mg capsule RxNorm: 076799 Capsule(s) TAKE TWO CAPSULES BY MOUTH DAILY. TAKE WITH 300MG CAPSULE TO EQUAL 700MG TOTAL DAILY. 08/02/2015 02/27/2016 Inactive lorazepam 1 mg tablet RxNorm: 263897 1 Tablet(s) PO QID as needed seizure activity 06/26/2015 07/25/2015 Inactive Phenytek 200 mg capsule RxNorm: 156150 TAKE TWO CAPSULES BY MOUTH DAILY. TAKE WITH 300MG CAPSULE TO EQUAL 700MG TOTAL DAILY. 05/25/2015 07/23/2015 Inactive Phenytek 200 mg capsule RxNorm: 533285 TAKE TWO CAPSULES BY MOUTH DAILY. TAKE WITH 300MG CAPSULE TO EQUAL 700MG TOTAL DAILY. 05/03/2015 05/24/2015 Inactive hydrochlorothiazide 25 mg tablet RxNorm: 459542 TAKE ONE TABLET BY MOUTH DAILY 03/27/2015 09/22/2015 Inactive hydrochlorothiazide 25 mg tablet RxNorm: 152029 TAKE ONE TABLET BY MOUTH DAILY 03/27/2015 09/22/2015 Inactive Phenytek 300 mg capsule RxNorm: 959638 1 Capsule(s) PO daily take with 2 200mg tablets to equal 700mg 01/04/2015 08/01/2015 Inactive Coumadin 1 mg tablet RxNorm: 301896 TAKE 1 TABLET BY MOUTH DOCTOR DIRECTED 12/19/2014 03/18/2015 Inactive Coumadin 4 mg tablet RxNorm: 448845 1 Tablet(s) PO QPM when starting, pt to take 4mg two pills nightly x 3 nights then take one pill daily) 12/05/2014 06/25/2015 Inactive Phenytek 200 mg capsule RxNorm: 493526 TAKE TWO CAPSULES BY MOUTH DAILY. TAKE WITH 300MG CAPSULE TO EQUAL 700MG TOTAL DAILY. 11/08/2014 05/02/2015 Inactive metronidazole 500 mg tablet RxNorm: 787914 1 Tablet(s) PO TID 11/01/2014 11/10/2014 Inactive hydrochlorothiazide 25 mg tablet RxNorm: 669412 1 Tablet(s) PO daily 2014 03/26/2015 Inactive Coumadin 1 mg tablet RxNorm: 528802 TAKE 1 TABLET BY MOUTH DOCTOR DIRECTED 08/19/2014 10/31/2014 Inactive Coumadin 1 mg tablet RxNorm: 783793 1 Tablet(s) PO as doctor directed 07/21/2014 08/18/2014 Inactive Coumadin 1 mg tablet RxNorm: 457266 1 Tablet(s) PO as doctor directed 07/21/2014 07/20/2014 Inactive hydrochlorothiazide 12.5 mg tablet RxNorm: 835449 1 Tablet(s) PO daily 06/15/2014 08/28/2014 Inactive Coumadin 5 mg tablet RxNorm: 187282 1 Tablet(s) PO QPM 05/12/2014 10/31/2014 Inactive check lab in 2 weeks Bactrim DS 800 mg-160 mg tablet RxNorm: 220677 1 Tablet(s) PO BID 05/10/2014 05/09/2014 Inactive start after UA given to lab Bactrim DS 800 mg-160 mg tablet RxNorm: 395306 1 Tablet(s) PO BID 05/10/2014 05/16/2014 Inactive start after UA given to lab today Keflex 500 mg capsule RxNorm: 779414 1 Capsule(s) PO TID 04/26/2014 05/05/2014 Inactive Phenytek 300 mg capsule RxNorm: 310240 1 Capsule(s) PO daily 03/29/2014 03/28/2014 Inactive Phenytek 300 mg capsule RxNorm: 431734 1 Capsule(s) PO daily take with 2 200mg tablets to equal 700mg 03/29/2014 10/24/2014 Inactive Phenytek 200 mg capsule RxNorm: 669668 2 Capsule(s) PO daily take with a 300mg capsule to equal 700mg daily 03/29/2014 10/24/2014 Inactive Coumadin 4 mg tablet RxNorm: 330358 1 Tablet(s) PO QPM when starting, pt to take 4mg two pills nightly x 3 nights then take one pill daily) 03/29/2014 05/11/2014 Inactive hydrochlorothiazide 12.5 mg tablet RxNorm: 916912 1 Tablet(s) PO daily 03/29/2014 06/14/2014 Inactive Aspirin Low Dose 81 mg tablet,delayed release RxNorm: 678060 1 Tablet(s) PO daily No Start Date Active Phenergan-Codeine 6.25 mg-10 mg/5 mL syrup RxNorm: 639840 5-10 Milliliter(s) PO Q6 as needed cough No Start Date 11/30/2015 Inactive pantoprazole 40 mg tablet,delayed release RxNorm: 563288 1 Tablet(s) PO daily No Start Date 07/01/2016 Inactive Xarelto 20 mg tablet RxNorm: 3298273 Tablet(s) PO No Start Date 03/24/2016 Inactive 15mg BID x 21 days then 20mg daily lorazepam 0.5 mg tablet RxNorm: 282232 1 Tablet(s) PO as doctor directed for seizures No Start Date 06/25/2015 Inactive Symbicort 160 mcg-4.5 mcg/actuation HFA aerosol inhaler RxNorm: 5033379 inhalation No Start Date 03/10/2016 Inactive Phenytek oral RxNorm: 168733 oral No Start Date 03/28/2014 Inactive metoprolol succinate ER 25 mg tablet,extended release 24 hr RxNorm: 181780 1 Tablet(s) PO daily No Start Date 09/25/2016 Inactive aspirin 325 mg tablet,delayed release RxNorm: 724282 1 Tablet(s) PO QHS No Start Date 03/04/2016 Inactive Medication Administered Medication Codes Instructions Start Date Status Kenalog 40 mg/mL suspension for injection RxNorm: 7653490 1.5Milliliter 11/11/2017 No longer Active Kenalog 40 mg/mL suspension for injection RxNorm: 3001694 1Milliliter 11/20/2015 No longer Active Immunizations Vaccine [...] unspecified ICD-10: J06.9 ICD-9: 465.9 11/20/2015 Other residential (current) drug therapy ICD-10: Z79.899 ICD-9: V58.69 [...] Item Item Code Result Date Comp Metabolic Ibj172 NA 141 mEq/L 09/09/2016 Comp Metabolic Bsf317 K 3.8 mEq/L 09/09/2016 Comp Metabolic Xha429 CL 108 mEq/L 09/09/2016 Comp Metabolic Rav753 CO2 24.0 mEq/L 09/09/2016 Comp Metabolic Kir125 ANION GAP 13 09/09/2016 Comp Metabolic Aae853 GLUCOSE 134 mg/dL 09/09/2016 Comp Metabolic Xkf457 Creat 0.8 mg/dL 09/09/2016 Comp Metabolic Wus283 eGFR 113 ml/min/1.73m2 09/09/2016 Comp Metabolic Sdv141 BUN 16 mg/dL 09/09/2016 Comp Metabolic Clz504 B/C Ratio 21.1 Ratio 09/09/2016 Comp Metabolic Hfx743 CALCIUM 8.8 mg/dL 09/09/2016 Comp Metabolic Won449 ALK PHOS 111 U/L 09/09/2016 Comp Metabolic Gjs479 AST(SGOT) 16 U/L 09/09/2016 Comp Metabolic Cbr664 ALT(SGPT) 16 U/L 09/09/2016 Comp Metabolic Mkr723 BILI T 0.4 mg/dL 09/09/2016 Comp Metabolic Zey424 ALBUMIN 3.8 g/dL 09/09/2016 Comp Metabolic Wyc264 TPRO 7.0 g/dL 09/09/2016 Comp Metabolic Llu602 GLOB 3.2 g/dL 09/09/2016 Comp Metabolic Alp786 A/G Ratio 1.2 Ratio 09/09/2016 Comp Metabolic Bqj899 Osmo 284 mOsmo 09/09/2016 Cbc With Differential [...] 32.6 pg 09/09/2016 Cbc With Differential Ord2 Storey% 10.2 % 09/09/2016 Cbc With Differential Ord2 [...] 1.83 K/ul 09/09/2016 Cbc With Differential Ord2 Storey ABS# 0.7 K/ul 09/09/2016 Cbc With Differential [...] 34.3 pg 12/26/2015 Cbc With Differential Ord2 Storey% 8.7 % 12/26/2015 Cbc With Differential Ord2 [...] 1.71 K/ul 12/26/2015 Cbc With Differential Ord2 Storey ABS# 0.7 K/ul 12/26/2015 Cbc With Differential Ord2 Eos ABS# 0.1 K/ul 12/26/2015 Cbc With Differential Ord2 Baso ABS# 0.0 K/ul 12/26/2015 Tsh Ord6 hTSH II 2.81 uIU/mL 12/26/2015 Comp Metabolic Csf980 NA 137 mEq/L 12/26/2015 Comp Metabolic Ztn441 K 4.3 mEq/L 12/26/2015 Comp Metabolic Nrl070 CL 101 mEq/L 12/26/2015 Comp Metabolic Jsp144 CO2 27.0 mEq/L 12/26/2015 Comp Metabolic Jub733 ANION GAP 13 12/26/2015 Comp Metabolic Jsm182 GLUCOSE 128 mg/dL 12/26/2015 Comp Metabolic Mju589 Creat 0.8 mg/dL 12/26/2015 Comp Metabolic Omw242 eGFR 104 ml/min/1.73m2 12/26/2015 Comp Metabolic Bnv192 BUN 16 mg/dL 12/26/2015 Comp Metabolic Sdj073 B/C Ratio 19.5 Ratio 12/26/2015 Comp Metabolic Bji509 CALCIUM 9.2 mg/dL 12/26/2015 Comp Metabolic Jse394 ALK PHOS 107 U/L 12/26/2015 Comp Metabolic Xhm532 AST(SGOT) 15 U/L 12/26/2015 Comp Metabolic Ifc556 ALT(SGPT) 15 U/L 12/26/2015 Comp Metabolic Ezu456 BILI T 0.4 mg/dL 12/26/2015 Comp Metabolic Utj302 ALBUMIN 4.0 g/dL 12/26/2015 Comp Metabolic Pjd233 TPRO 7.6 g/dL 12/26/2015 Comp Metabolic Fdl644 GLOB 3.6 g/dL 12/26/2015 Comp Metabolic Mhr565 A/G Ratio 1.1 Ratio 12/26/2015 Comp Metabolic Vyx926 Osmo 277 mOsmo 12/26/2015 Dilantin Ord7 DILANTIN [...] dentition 04/26/2014 None Full Exam - General 1995 Ears/Nose/Throat oral cavity/pharynx/larynx Overall: oral mucosa clear 04/26/2014 None Full Exam - General 1994 Ears/Nose/Throat oral cavity/pharynx/larynx Overall: oropharyngeal mucosa clear 04/26/2014 None Full Exam - General 1995 Ears/Nose/Throat oral cavity/pharynx/larynx Overall: hypopharynx benign 04/26/2014 [...] J3301 11/11/2017 OCCULT BLOOD FECES CPT- 4: 43789 10/28/2017 TRIAMCINOLONE ACET INJ NOS CPT-4: J3301 11/20/2015 Vital Signs Date Vital 02/12/2018 Blood Pressure 1: 134/80 Code: 8480-6 BMI: 48.7 Code: 03561-2 Heart Rate 1: 78 bpm Height: 5'11" SpO2: 96% Weight: 349 lbs 01/28/2018 Blood Pressure 1: 140/80 Code: 8480-6 BMI: 48.3 Code: 42879-3 Heart Rate 1: 78 bpm Height: 5'11" SpO2: 94% Temperature: 36.7 (C) / 98.1 (F) Weight: 346 lbs 11/11/2017 Blood Pressure 1: 144/82 Code: 8480-6 BMI: 47.1 Code: 40227-4 Heart Rate 1: 73 bpm Height: 5'11" SpO2: 94% Temperature: 36.9 (C) / 98.5 (F) Weight: 338 lbs 10/17/2017 Blood Pressure 1: 136/78 Code: 8480-6 BMI: 47.1 Code: 20386-3 Heart Rate 1: 82 bpm Height: 5'11" SpO2: 96% Weight: 338 lbs 06/06/2017 Blood Pressure 1: 138/76 Code: 8480-6 BMI: 47.4 Code: 53438-8 Heart Rate 1: 76 bpm Height: 5'11" SpO2: 96% Weight: 340 lbs 04/11/2017 Blood Pressure 1: 142/80 Code: 8480-6 Heart Rate 1: 79 bpm Height: 5'11" SpO2: 96% 01/27/2017 Blood Pressure 1: 146/86 Code: 8480-6 BMI: 47.1 Code: 72046-8 Heart Rate 1: 97 bpm Height: 5'11" SpO2: 95% Weight: 338 lbs 12/27/2016 Blood Pressure 1: 154/74 Code: 8480-6 BMI: 48.5 Code: 77587-5 Heart Rate 1: 82 bpm Height: 5'11" SpO2: 96% Weight: 348 lbs 10/09/2016 Blood Pressure 1: 160/82 Code: 8480-6 BMI: 47.4 Code: 71969-5 Heart Rate 1: 77 bpm Height: 5'11" SpO2: 96% Weight: 340 lbs 09/09/2016 Blood Pressure 1: 140/80 Code: 8480-6 Heart Rate 1: 88 bpm Height: 5'11" SpO2: 96% Weight: 05/31/2016 Blood Pressure 1: 126/78 Code: 8480-6 BMI: 46.3 Code: 66992-1 Heart Rate 1: 75 bpm Height: 5'11" SpO2: 96% Weight: 332 lbs 03/29/2016 Blood Pressure 1: 146/78 Code: 8480-6 Heart Rate 1: 78 bpm Height: 5'11" SpO2: 97% Weight: 03/11/2016 Blood Pressure 1: 136/86 Code: 8480-6 BMI: 44.4 Code: 98294-4 Heart Rate 1: 77 bpm Height: 5'11" SpO2: 96% Weight: 318 lbs 02/23/2016 Blood Pressure 1: 146/94 Code: 8480-6 BMI: 44.4 Code: 40962-9 Heart Rate 1: 90 bpm Height: 5'11" SpO2: 93% Weight: 318 lbs 01/16/2016 Blood Pressure 1: 140/86 Code: 8480-6 BMI: 44.6 Code: 84059-0 Heart Rate 1: 75 bpm Height: 5'11" SpO2: 96% Weight: 320 lbs 12/26/2015 Blood Pressure 1: 130/78 Code: 8480-6 BMI: 43.7 Code: 79054-1 Heart Rate 1: 96 bpm Height: 5'11" SpO2: 98% Weight: 313 lbs 11/20/2015 Blood Pressure 1: 137/92 Code: 8480-6 Heart Rate 1: 84 bpm Height: SpO2: 98% Temperature: 36.7 (C) / 98.0 (F) Weight: 09/01/2015 Blood Pressure 1: 148/88 Code: 8480-6 BMI: 43.8 Code: 69973-9 Heart Rate 1: 73 bpm Height: 5'11" SpO2: 97% Weight: 314 lbs 08/09/2015 Blood Pressure 1: 138/78 Code: 8480-6 BMI: 45.0 Code: 44822-3 Heart Rate 1: 75 bpm Height: 5'11" SpO2: 98% Weight: 323 lbs 06/26/2015 Blood Pressure 1: 134/80 Code: 8480-6 BMI: 46.3 Code: 10377-0 Heart Rate 1: 78 bpm Height: 5'11" SpO2: 96% Weight: 332 lbs 11/18/2014 Blood Pressure 1: 130/78 Code: 8480-6 BMI: 44.4 Code: 10455-5 Heart Rate 1: 66 bpm Height: 5'11" SpO2: 98% Weight: 318 lbs 11/01/2014 Blood Pressure 1: 130/78 Code: 8480-6 BMI: 44.5 Code: 13021-2 Heart Rate 1: 78 bpm Height: 5'11" SpO2: 97% Weight: 319 lbs 10/27/2014 Blood Pressure 1: 152/88 Code: 8480-6 BMI: 43.9 Code: 16998-5 Heart Rate 1: 91 bpm Height: 5'11" SpO2: 98% Weight: 315 lbs 2014 Blood Pressure 1: 140/82 Code: 8480-6 BMI: 44.9 Code: 74741-3 Heart Rate 1: 78 bpm Height: 5'11" Weight: 322 lbs 05/05/2014 Blood Pressure 1: 142/88 Code: 8480-6 BMI: 40.9 Code: 84295-3 Heart Rate 1: 64 bpm Height: 5'11" Temperature: 37.3 (C) / 99.1 (F) Weight: 293 lbs 04/26/2014 Blood Pressure 1: 142/82 Code: 8480-6 BMI: 40.2 Code: 76899-6 Heart Rate 1: 64 bpm Height: 5'11" Weight: 288 lbs 03/29/2014 Blood Pressure 1: 138/84 Code: 8480-6 BMI: 39.3 Code: 42307-6 Heart Rate 1: 84 bpm Height: 5'11" [...] data Encounters Encounter Performer Location Codes Date EST. PATIENT, LEVEL IV Diagnosis: Essential (primary) hypertension[ICD10: I10] Diagnosis: Epilepsy, unspecified, not intractable, without status epilepticus[ICD10: G40.909] Diagnosis: Cough[ICD10: R05] Diagnosis: Other allergic rhinitis[ICD10: J30.89] Elsie Salamanca MD, [facility] CPT- 4: 79065 02/12/2018 [id number] EST. PATIENT, LEVEL III Diagnosis: Acute laryngopharyngitis[ICD10: J06.0] Diagnosis: Other allergic rhinitis[ICD10: J30.89] Diagnosis: Encounter for therapeutic drug level monitoring[ICD10: Z51.81] Elsie Salamanca MD, [facility] CPT-4: 24213 01/28/2018 [id number] EST. PATIENT, LEVEL III Diagnosis: Other acute sinusitis[ICD10: J01.80] Diagnosis: Other allergic rhinitis[ICD10: J30.89] Diagnosis: Cough[ICD10: R05] Elsie Salamanca MD, [facility] CPT-4: 23301 11/11/2017 [id number] EST. PATIENT, LEVEL IV Diagnosis: Essential (primary) hypertension[ICD10: I10] Diagnosis: Epilepsy, unspecified, not intractable, without status epilepticus[ICD10: G40.909] Elsie Salamanca MD, [facility] CPT-4: 10760 10/17/2017 [id number] EST. PATIENT, LEVEL IV Diagnosis: Essential (primary) hypertension[ICD10: I10] Diagnosis: Epilepsy, unspecified, not intractable, without status epilepticus[ICD10: G40.909] Elsie Salamanca MD, [facility] CPT-4: 43309 06/06/2017 79092 EST. PATIENT, LEVEL IV Diagnosis: Essential (primary) hypertension[ICD10: I10] Diagnosis: Epilepsy, unspecified, not intractable, without status epilepticus[ICD10: G40.909] Elsie Salamanca MD, [facility] CPT-4: 92666 04/11/2017 ([id number]) 54657 EST. PATIENT, LEVEL III Diagnosis: Essential (primary) hypertension[ICD10: I10] Diagnosis: Epilepsy, unspecified, not intractable, without status epilepticus[ICD10: G40.909] Leelee Salamanca MD, [facility] CPT-4: 99281 01/27/2017 ([id number]) 49972 EST. PATIENT, LEVEL IV Diagnosis: Essential (primary) hypertension[ICD10: I10] Diagnosis: Epilepsy, unspecified, not intractable, without status epilepticus[ICD10: G40.909] Diagnosis: Pain in right wrist[ICD10: M25.531] Leelee Salamanca MD, [facility] CPT-4: 91057 12/27/2016 09806 EST. PATIENT, LEVEL III Diagnosis: Rash and other nonspecific skin eruption[ICD10: R21] Elsie Salamanca MD, [facility] CPT-4: 00296 10/09/2016 ([id number]) 74954 EST. PATIENT, LEVEL III Diagnosis: Carpal tunnel syndrome, right upper limb[ICD10: G56.01] Diagnosis: Olecranon bursitis, right elbow[ICD10: M70.21] Betty Salamanca MD, [facility] CPT-4: 81265 09/09/2016 ([id number]) 23600 EST. PATIENT, LEVEL III Diagnosis: Essential (primary) hypertension[ICD10: I10] Diagnosis: Low back pain[ICD10: M54.5] Leelee Salamanca MD, [facility] CPT-4: 39461 05/31/2016 ([id number]) 89517 EST. PATIENT, LEVEL III Diagnosis: Essential (primary) hypertension[ICD10: I10] Diagnosis: Slow transit constipation[ICD10: K59.01] Leelee Salamanca MD, [facility] CPT-4: 28250 03/29/2016 ([id number] EST. 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 CPT-4: 95754 03/11/2016 44995 EST. PATIENT, LEVEL III Diagnosis: Acute laryngopharyngitis[ICD10: J06.0] Diagnosis: Other allergic rhinitis[ICD10: J30.89] Diagnosis: Cough[ICD10: R05] Diagnosis: Wheezing[ICD10: R06.2] Elsie Salamanca MD, [facility] CPT-4: 82051 02/23/2016 ([id number]) [id number] EST. PATIENT, LEVEL III Diagnosis: Epilepsy, unspecified, not intractable, without status epilepticus[ICD10: G40.909] Betty Salamanca MD, [facility] CPT-4: 69330 01/16/2016 ([id number]) [id number] EST. PATIENT, LEVEL IV Diagnosis: Essential (primary) hypertension[ICD10: I10] Diagnosis: Morbid (severe) obesity due to excess calories[ICD10: E66.01] Diagnosis: Epilepsy, unspecified, not intractable, without status epilepticus[ICD10: G40.909] Betty Salamanca MD, [facility] CPT-4: 66423 12/26/[id number]) [id number] EST. PATIENT, LEVEL III Diagnosis: Allergic rhinitis due to pollen[ICD10: J30.1] Diagnosis: Acute upper respiratory infection, unspecified[ICD10: J06.9] Leelee Salamanca MD, [facility] CPT-4: 83686 11/20/2015 [id number] EST. PATIENT, LEVEL IV Diagnosis: Other rn long term care (current) drug therapy[ICD10: Z79.899] Diagnosis: Candidiasis of skin and nail[ICD10: B37.2] Elsie Salamanca MD, [facility] CPT-4: 12599 09/01/2015 ([id number]) 61369 EST. PATIENT, LEVEL IV Diagnosis: Epilepsy, unspecified, not intractable, without status epilepticus[ICD10: G40.909] Diagnosis: Essential (primary) hypertension[ICD10: I10] Diagnosis: First degree hemorrhoids[ICD10: K64.0] Diagnosis: Low back pain[ICD10: M54.5] Betty Salamanca MD, [facility] CPT-4: 85799 08/09/2015 ([id number]) 47166 EST. PATIENT, LEVEL IV Diagnosis: Essential (primary) hypertension[ICD10: I10] Diagnosis: Morbid (severe) obesity due to excess calories[ICD10: E66.01] Diagnosis: Epilepsy, unspecified, not intractable, without status epilepticus[ICD10: G40.909] Betty Salamanca MD, [facility] CPT-4: 72661 06/26/2015 ([id number]) 34370 EST. PATIENT, LEVEL IV Diagnosis: ESSENTIAL HYPERTENSION[ICD9: 401.9] Diagnosis: Small bowel obstruction[ICD9: 560.9] Diagnosis: Hospital discharge follow-up[ICD9: V67.59] Betty Salamanca MD, [facility] CPT-4: 05960 11/18/2014 ([id number]) 62966 EST. PATIENT, LEVEL III Diagnosis: Diarrhea[ICD9: 787.91] Diagnosis: Abdominal pain[ICD9: 789.00] Betty Salamanca MD, [facility] CPT-4: 21495 11/01/2014 ([id number]) 60239 EST. PATIENT, LEVEL III Diagnosis: ESSENTIAL HYPERTENSION[ICD9: 401.9] Diagnosis: Diarrhea[ICD9: 787.91] Leelee Salamanca MD, [facility] CPT-4: 68893 10/27/2014 ([id number]) 53607 EST. PATIENT, LEVEL IV Diagnosis: Factor V Leiden mutation[ICD9: 289.81] Diagnosis: Hx of deep venous thrombosis[ICD9: V12.51] Diagnosis: ESSENTIAL HYPERTENSION[ICD9: 401.9] Diagnosis: OBESITY[ICD9: 278.00] Betty Salamanca MD, [facility] CPT-4: 47630 2014 ([id number]) 90347 EST. PATIENT, LEVEL III Diagnosis: Hematuria[ICD9: 599.70] Diagnosis: LONG-TERM USE ANTICOAGUL[ICD9: V58.61] Leelee Salamanca MD, [facility] CPT-4: 71765 05/05/[id number]) 68901 EST. PATIENT, LEVEL IV Diagnosis: ESSENTIAL HYPERTENSION[ICD9: 401.9] Diagnosis: LONG-TERM USE ANTICOAGUL[ICD9: V58.61] Diagnosis: MORBID OBESITY[ICD9: 278.01] Diagnosis: Abscess and cellulitis[ICD9: 682.9] Betty Salamanca MD, [facility] CPT- 4: 66247 04/26/2014 ([id number]) OFFICE VISIT, NEW - LEVEL 4 Diagnosis: ESSENTIAL HYPERTENSION[ICD9: 401.9] Diagnosis: LONG-TERM USE ANTICOAGUL[ICD9: V58.61] Betty Salamanca MD, [facility] CPT-4: 00001 03/29/2014 Plan of Care Planned Activity Notes [...] allergy spray. 02/12/2018 Appointment: Elsie Mosquera WPtel: [facility] (15 min) Moderate 02/12/2018 Patient [...] allergy spray. 01/28/2018 Appointment: Elsie Mosquera WPtel: [facility] (15 min) Moderate 01/28/2018 Patient Education: Patient [...] allergy spray. 11/11/2017 Appointment: Elsie Mosquera WPtel: [address] [place], [place] [phone] (15 min) Moderate 11/11/2017 Patient Education: Patient [...] month for weight check. 10/17/2017 Appointment: Elsie Mosquera: [phone] [facility] (15 min) Moderate 10/17/2017 Patient Education: Patient Medication Summary Completed 10/17/2017 Appointment: Elsie Mosqueral: [phone] [facility] (15 min) Moderate 10/07/2017 Care Plan: BMI Above normal followup SELF-MGMT EDUC & TRAIN 1 PT Pending 06/09/2017 Visit Plan: Hypertension - improved - continue with current medications, continue with no added salt diet. Pt has been encouraged to exercise daily. The pt has been advised to call the office if there are any [place] concerns about change in blood pressure readings at home. Epilepsy- controlled, no changes, continue to monitor Obesity - chronic issue with this patient. The pt has been counseled about diet changes, calorie restriction, and need to exercise. Pt will RTC in one month for weight check. 06/06/2017 Appointment: Elsie Mosqueral: [address] [facility] [place] (30 min) Complex 06/06/2017 Patient Education: [...] the office if there are any [place] concerns about change in blood pressure readings at home. Epilepsy- controlled, no changes, continue to monitor Obesity - chronic issue with this patient. The pt has been counseled about diet changes, calorie restriction, and need to exercise. Pt will RTC in one month for weight check. 04/11/2017 Appointment: Elsie Mosqueral: [phone] [facility] (30 min) Complex 04/11/2017 Patient Education: Patient Medication Summary Completed 04/11/2017 Patient Education: Obesity Completed 04/11/2017 [facility] ([facility] Complex 04/01/2017 Visit Plan: Hypertension - improved - continue with current medications, continue with no added salt diet. Pt has been encouraged to exercise daily. The pt has been advised to call the office if there are any [place] concerns about change in blood pressure readings at home. Obesity-lost 10#- continue diet/exercise Epilepsy-check dilantin level 01/27/2017 Appointment: [facility] Weinstein [facility]el[phone] (30 min) Complex 01/27/2017 Patient Education: Patient [...] Dr Ordaz 12/27/2016 Appointment: [facility] Weinstein [facility]el[phone] (30 min) Complex 12/27/2016 Patient Education: Patient Medication Summary Completed 12/27/2016 Care Plan: Referral Order SNOMED-CT : [id number] Pending 12/27/2016 Visit Plan: Rash - pt [...] Obesity Completed 10/09/2016 Appointment: Leelee Weinstein WPtel: [phone] (30 min) Complex 10/04/2016 Visit Plan: on the rash on your foot, use benadryl cream mixed with cortisone cream - use a jerica size portion of both Carpal tunnel -wear a carpal tunnel brace at night and a tennis elbow brace during the day use aspercreme on your elbow and wrist at least twice a day 09/09/2016 Appointment: Betty Salamanca WPtel[facility] (15 min) Moderate 09/09/2016 Patient Education: Patient [...] not improve. 05/31/2016 Appointment: Leelee Weinstein WPtel[phone] (30 min) Complex 05/31/2016 Patient Education: Patient Medication Summary Completed 05/31/2016 Patient Education: Obesity Completed 05/31/2016 Patient Education: Hypertension Completed 05/31/2016 Appointment: Leelee Weinstein WPtel: [phone] (30 min) Complex 04/01/2016 Visit Plan: Hypertension [...] plan. 03/29/2016 Appointment: Leelee Weinstein WPtel: [phone] [phone] (15 min) Moderate 03/29/2016 Patient Education: Patient Medication Summary Completed 03/29/2016 Patient Education: Hypertension Completed 03/29/2016 Visit Plan: Bilateral PE-hospital follow up-on xarelto-symptoms improving Otksb-cozyhjmsxa-kkbthddm-continue symbicort twice daily as directed Hypertension - well controlled - continue with current medications, continue with no added salt diet. Pt has been encouraged to exercise daily. The pt has been advised to call the office if there are any acute concerns about change in blood pressure readings at home. 03/11/2016 Appointment: Leelee Weinstein WPtel: [phone] (30 min) Complex 03/11/2016 Patient Education: [...] allergy spray. 02/23/2016 Appointment: Elsie Mosquera WPtel: [facility] (15 min) Moderate 02/23/2016 Patient Education: Patient Medication Summary Completed 02/23/2016 Patient Education: Obesity Completed 02/23/2016 Visit Plan: Epilepsy - continue with phenytek wound improving 01/16/2016 Appointment: Betty Salamanca WPtel: [phone] [facility] (15 min) Moderate 01/16/2016 Patient Education: Patient [...] anti-epileptic 12/26/2015 Appointment: Betty Salamanca WPtel: [address] [facility] (15 min) Moderate 12/26/2015 Patient Education: Patient [...] not resolve 11/20/2015 Appointment: Leelee Weinstein WPtel: [address] [phone] (15 min) Moderate 11/20/2015 Patient Education: Patient [...] in pain. 09/01/2015 Appointment: Leelee Weinstein WPtel: [phone] [phone] (30 min) [facility] 09/01/2015 Patient Education: Patient Medication Summary Completed 09/01/2015 Referral: Ady Oswald WPtel:[phone] Referral Completed 08/30/2015 Visit Plan: Hypertension - [...] 08/09/2015 Care Plan: Referral Order SNOMED-CT : [id number] Pending 07/12/2015 Visit Plan: Hypertension - well [...] on flagyl. 11/01/2014 Appointment: Betty Salamanca WPtel: [address] [place], [place] [address] (15 min) Moderate 11/01/2014 Patient Education: Patient [...] closely - 2014 Appointment: Betty Salamanca WPtel: [facility] Follow up 2014 Patient Education: Patient Medication Summary Completed 2014 Patient Education: Hypertension Completed 2014 Care Plan: Referral Order SNOMED-CT : [id number] Ordered 2014 Visit Plan: Hematuria-per patient report-no [...] weight check. 04/26/2014 Appointment: Betty Salamanca WPtel: [address] [place] [address] Follow up 04/26/2014 Patient Education: Patient Medication [...] and 3.5. 03/29/2014 Appointment: Betty Salamanca WPtel: [address] [place] [address] New Patient 03/29/2014 Patient Education: Patient Medication Summary Completed 03/29/2014 Patient Education: Hypertension Completed 03/29/2014 Referral: Madhu Hall MD WPtel: [address] [address] [place] Referral Completed Referral: Edilson Ordaz [facility] [place] Referral Appointment Requested Referral: Ady Oswald WPtel:[phone] Referral Appointment Requested Instructions Comment . Rash - pt is to use [...] . Bilateral PE-hospital follow up-on xarelto-symptoms improving Jwcxt-zxffjistpl-jblpddcb-continue symbicort twice daily as directed Hypertension - [...] stable - no change in medications. . Hypertension - well controlled - continue [...] in medication for treatment of seizure disorder. LABS IN 1 MONTH AT APPT REFER [...]
--- OUTSIDE RECORDS SUMMARY | 2018-09-06 06:11 | XMS REPORT | CCD ---
Author Author Betty Salamanca Organization [facility] Address [address] [place] [address] Phone Care Team Providers Care Car Construction Superintendent Name Role Phone PP Unavailable CCM Unavailable Summary Purpose Interface Exchange Insurance Providers Payer name Policy type / Coverage type Covered democrat ID Effective Begin Date Effective End Date Blue Cross Blue Shield [facility] Blue Cross/Blue Shield [id number] Unknown Unknown Family history Father Diagnosis Age At Onset Coronary Artery Disease Unknown Mother Diagnosis Age At Onset Cancer Unknown Cancer Unknown Social History Social History Element Codes Description Effective Dates Number of children Unknown 0 06/26/2015 Employment Unknown 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 [employer] 06/26/[address]: 248429121 Never smoker 06/26/[address]: 313619570 Never drinks alcohol 06/26/2015 Marital status Unknown [place] 04/26/2014 Allergies, Adverse Reactions, Alerts Allergies, Adverse Reactions, Alerts data not found Past Medical History Illness Codes Condition Status Onset Date Resolved Date Carpal tunnel syndrome, right upper limb ICD-9: 354.0 ICD-10: G56.01 Active 09/09/2016 Unknown Olecranon bursitis, right elbow ICD-9: 726.33 ICD-10: M70.21 Active 09/09/2016 Unknown Essential (primary) hypertension ICD-9: 401.9 ICD-10: I10 Active 03/10/2016 Unknown Low back pain ICD-9: 724.2 ICD-10: M54.5 Active 08/08/2015 Unknown Slow transit constipation ICD-9: 564.01 ICD-10: K59.01 Active 03/29/2016 Unknown Cough ICD-9: 786.2 ICD-10: R05 Active 03/10/2016 Unknown Encounter for follow-up examination after completed treatment for conditions other than malignant neoplasm ICD-9: V67.59 ICD-10: Z09 Active 03/10/2016 Unknown 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 ICD-10: I26.92 Active 03/10/2016 Unknown Acute laryngopharyngitis ICD-9: 465.0 ICD-10: J06.0 Active 02/22/2016 Unknown Other allergic rhinitis ICD-9: 477.8 ICD-10: J30.89 Active 02/22/2016 Unknown Wheezing ICD-9: 786.07 ICD-10: R06.2 Active 02/22/2016 Unknown Epilepsy, unspecified, not intractable, without status epilepticus ICD-9: 345.90 ICD-10: G40.909 Active 01/15/2016 Unknown Morbid (severe) obesity due to excess calories ICD-9: 278.01 ICD-10: E66.01 Active 04/26/2014 Unknown Acute upper respiratory infection, unspecified ICD-9: 465.9 ICD-10: J06.9 Active 11/19/2015 Unknown Allergic rhinitis due to pollen ICD-9: 477.0 ICD-10: J30.1 Active 11/19/2015 Unknown Other joint terminal attack controller (current) drug therapy ICD-9: V58.69 ICD-10: Z79.899 Active 09/07/2015 Unknown Candidiasis of skin and nail ICD-9: 112.3 ICD-10: B37.2 Active 08/31/2015 Unknown First degree hemorrhoids ICD-9: 455.6 ICD-10: K64.0 Active 08/08/2015 Unknown Encounter for therapeutic drug level monitoring ICD-9: V58.61 ICD-10: Z51.81 Active 02/02/2015 Unknown Encounter for screening for malignant neoplasm of prostate ICD-9: V76.44 ICD-10: Z12.5 Active 01/01/2015 Unknown Obesity, unspecified ICD- 9: 278.00 ICD-10: [...] Problems Condition Codes Effective Dates Condition Status Carpal tunnel syndrome, right upper limb ICD-9: 354.0 ICD-10: G56.01 09/09/2016 Active Olecranon bursitis, right elbow ICD-9: 726.33 ICD-10: M70.21 09/09/2016 Active Essential (primary) hypertension ICD-9: 401.9 ICD-10: I10 03/10/2016 Active Low back pain ICD-9: 724.2 ICD-10: M54.5 08/08/2015 Active Slow transit constipation ICD-9: 564.01 ICD-10: K59.01 03/29/2016 Active Cough ICD-9: 786.2 ICD-10: R05 03/10/2016 Active Encounter for follow-up examination after completed treatment for conditions other than malignant neoplasm ICD-9: V67.59 ICD-10: Z09 03/10/2016 Active 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 ICD-10: I26.92 03/10/2016 Active Acute laryngopharyngitis ICD-9: 465.0 ICD-10: J06.0 02/22/2016 Active Other allergic rhinitis ICD-9: 477.8 ICD-10: J30.89 02/22/2016 Active Wheezing ICD-9: 786.07 ICD-10: R06.2 02/22/2016 Active Epilepsy, unspecified, not intractable, without status epilepticus ICD-9: 345.90 ICD-10: G40.909 01/15/2016 Active Morbid (severe) obesity due to excess calories ICD-9: 278.01 ICD-10: E66.01 04/26/2014 Active Acute upper respiratory infection, unspecified ICD-9: 465.9 ICD-10: J06.9 11/19/2015 Active Allergic rhinitis due to pollen ICD-9: 477.0 ICD-10: J30.1 11/19/2015 Active Other joint terminal attack controller (current) drug therapy ICD-9: V58.69 ICD-10: Z79.899 09/07/2015 Active Candidiasis of skin and nail ICD-9: 112.3 ICD-10: B37.2 08/31/2015 Active First degree hemorrhoids ICD-9: 455.6 ICD-10: K64.0 08/08/2015 Active Encounter for therapeutic drug level monitoring ICD-9: V58.61 ICD-10: Z51.81 02/02/2015 Active Encounter for screening for malignant neoplasm of prostate ICD-9: V76.44 ICD-10: Z12.5 01/01/2015 Active Obesity, unspecified ICD- 9: 278.00 ICD-10: [...] Date Stop Date Status Fill Instructions Phenytek 200 mg capsule RxNorm: 594197 TAKE TWO CAPSULES BY MOUTH DAILY WITH 300 MG CAPSULE TO EQUAL 700 MG TOTAL DAILY 09/03/2016 01/30/2017 Active Xarelto 20 mg tablet RxNorm: 4874630 TAKE ONE TABLET BY MOUTH DAILY 07/23/2016 10/20/2016 Active pantoprazole 40 mg tablet,delayed release RxNorm: 048154 TAKE ONE TABLET BY MOUTH TWICE A DAY AT 7 AM AND 9 PM 07/02/2016 12/28/2016 Active Xarelto 20 mg tablet RxNorm: 4435839 1 Tablet(s) PO daily 03/25/2016 07/22/2016 Inactive Symbicort 160 mcg-4.5 mcg/actuation HFA aerosol inhaler RxNorm: 0224685 2 Puff(s) INH BID 03/11/2016 No Stop Date Active Phenytek 200 mg capsule RxNorm: 856259 TAKE TWO CAPSULES BY MOUTH DAILY WITH 300 MG CAPSULE TO EQUAL 700 MG TOTAL DAILY 03/08/2016 09/02/2016 Inactive Ventolin HFA 90 mcg/actuation aerosol inhaler RxNorm: 148379 1 Puff(s) INH Q4-6H as needed 02/23/2016 No Stop Date Active prednisone 20 mg tablet RxNorm: 487785 2 Tablet(s) PO daily 02/23/2016 02/27/2016 Inactive Augmentin 875 mg-125 mg tablet RxNorm: 736157 1 Tablet(s) PO BID 02/23/2016 02/25/2016 Inactive nystatin 100,000 unit/gram topical powder RxNorm: 038355 1 Gram(s) TOP TID 01/16/2016 01/25/2016 Inactive Phenergan-Codeine 6.25 mg-10 mg/5 mL syrup RxNorm: 085555 5-10 Milliliter(s) PO Q6 as needed cough 12/01/2015 No Stop Date Active Zithromax 250 mg tablet RxNorm: 766123 1 Tablet(s) PO daily 11/23/2015 11/26/2015 Inactive Zithromax 250 mg tablet RxNorm: 274996 1 Tablet(s) PO daily 11/23/2015 11/22/2015 Inactive Zithromax Z-Kevin 250 mg tablet RxNorm: 925623 1 Tablet(s) PO UD 11/20/2015 11/24/2015 Inactive zpack Kenalog 40 mg/mL suspension for injection RxNorm: 6785900 1 Milliliter(s) Inj 11/20/2015 11/20/2015 Inactive Coumadin 4 mg tablet RxNorm: 056963 TAKE TWO TABLETS BY MOUTH EVERY EVENING FOR 3 DAYS, THEN TAKE TAKE ONE TABLET BY MOUTH EVERY EVENING THEREAFTER 11/20/2015 03/10/2016 Inactive hydrochlorothiazide 25 mg tablet RxNorm: 663281 TAKE ONE TABLET BY MOUTH DAILY 10/11/2015 03/10/2016 Inactive Phenytek 300 mg capsule RxNorm: 096201 1 Capsule(s) PO daily take with two 200mg tablets to equal 700mg 09/01/2015 03/28/2016 Inactive triamcinolone acetonide 0.025 % topical ointment RxNorm: 1087568 1 Application TOP BID 09/01/2015 No Stop Date Active nystatin 100,000 unit/gram topical cream RxNorm: 212779 1 Gram(s) TOP BID 09/01/2015 09/08/2016 Inactive nystatin 100,000 unit/gram topical powder RxNorm: 483561 1 Application TOP 09/01/2015 09/01/2015 Inactive Anucort-HC 25 mg suppository RxNorm: 6881837 1 Suppository RTL BID x 1 week then as needed 08/09/2015 No Stop Date Active Phenytek 300 mg capsule RxNorm: 353272 1 Capsule(s) PO daily take with two 200mg tablets to equal 700mg 08/02/2015 08/31/2015 Inactive Phenytek 200 mg capsule RxNorm: 575053 Capsule(s) TAKE TWO CAPSULES BY MOUTH DAILY. TAKE WITH 300MG CAPSULE TO EQUAL 700MG TOTAL DAILY. 08/02/2015 02/27/2016 Inactive lorazepam 1 mg tablet RxNorm: 683705 1 Tablet(s) PO QID as needed seizure activity 06/26/2015 07/25/2015 Inactive Phenytek 200 mg capsule RxNorm: 276661 TAKE TWO CAPSULES BY MOUTH DAILY. TAKE WITH 300MG CAPSULE TO EQUAL 700MG TOTAL DAILY. 05/25/2015 07/23/2015 Inactive Phenytek 200 mg capsule RxNorm: 162427 TAKE TWO CAPSULES BY MOUTH DAILY. TAKE WITH 300MG CAPSULE TO EQUAL 700MG TOTAL DAILY. 05/03/2015 05/24/2015 Inactive hydrochlorothiazide 25 mg tablet RxNorm: 423675 TAKE ONE TABLET BY MOUTH DAILY 03/27/2015 09/22/2015 Inactive hydrochlorothiazide 25 mg tablet RxNorm: 902617 TAKE ONE TABLET BY MOUTH DAILY 03/27/2015 09/22/2015 Inactive Phenytek 300 mg capsule RxNorm: 059183 1 Capsule(s) PO daily take with 2 200mg tablets to equal 700mg 01/04/2015 08/01/2015 Inactive Coumadin 1 mg tablet RxNorm: 922760 TAKE 1 TABLET BY MOUTH DOCTOR DIRECTED 12/19/2014 03/18/2015 Inactive Coumadin 4 mg tablet RxNorm: 397785 1 Tablet(s) PO QPM when starting, pt to take 4mg two pills nightly x 3 nights then take one pill daily) 12/05/2014 06/25/2015 Inactive Phenytek 200 mg capsule RxNorm: 509121 TAKE TWO CAPSULES BY MOUTH DAILY. TAKE WITH 300MG CAPSULE TO EQUAL 700MG TOTAL DAILY. 11/08/2014 05/02/2015 Inactive metronidazole 500 mg tablet RxNorm: 204906 1 Tablet(s) PO TID 11/01/2014 11/10/2014 Inactive hydrochlorothiazide 25 mg tablet RxNorm: 068403 1 Tablet(s) PO daily 2014 03/26/2015 Inactive Coumadin 1 mg tablet RxNorm: 137788 TAKE 1 TABLET BY MOUTH DOCTOR DIRECTED 08/19/2014 10/31/2014 Inactive Coumadin 1 mg tablet RxNorm: 087419 1 Tablet(s) PO as doctor directed 07/21/2014 08/18/2014 Inactive Coumadin 1 mg tablet RxNorm: 448634 1 Tablet(s) PO as doctor directed 07/21/2014 07/20/2014 Inactive hydrochlorothiazide 12.5 mg tablet RxNorm: 720686 1 Tablet(s) PO daily 06/15/2014 08/28/2014 Inactive Coumadin 5 mg tablet RxNorm: 189881 1 Tablet(s) PO QPM 05/12/2014 10/31/2014 Inactive check lab in 2 weeks Bactrim DS 800 mg-160 mg tablet RxNorm: 543120 1 Tablet(s) PO BID 05/10/2014 05/09/2014 Inactive start after UA given to lab Bactrim DS 800 mg-160 mg tablet RxNorm: 416372 1 Tablet(s) PO BID 05/10/2014 05/16/2014 Inactive start after UA given to lab today Keflex 500 mg capsule RxNorm: 895850 1 Capsule(s) PO TID 04/26/2014 05/05/2014 Inactive Phenytek 300 mg capsule RxNorm: 032286 1 Capsule(s) PO daily 03/29/2014 03/28/2014 Inactive Phenytek 300 mg capsule RxNorm: 044103 1 Capsule(s) PO daily take with 2 200mg tablets to equal 700mg 03/29/2014 10/24/2014 Inactive Phenytek 200 mg capsule RxNorm: 905930 2 Capsule(s) PO daily take with a 300mg capsule to equal 700mg daily 03/29/2014 10/24/2014 Inactive Coumadin 4 mg tablet RxNorm: 281015 1 Tablet(s) PO QPM when starting, pt to take 4mg two pills nightly x 3 nights then take one pill daily) 03/29/2014 05/11/2014 Inactive hydrochlorothiazide 12.5 mg tablet RxNorm: 648561 1 Tablet(s) PO daily 03/29/2014 06/14/2014 Inactive Aspirin Low Dose 81 mg tablet,delayed release RxNorm: 261465 1 Tablet(s) PO daily No Start Date Active metoprolol succinate ER 25 mg tablet,extended release 24 hr RxNorm: 680038 1 Tablet(s) PO daily No Start Date Active Phenergan-Codeine 6.25 mg-10 mg/5 mL syrup RxNorm: 990300 5-10 Milliliter(s) PO Q6 as needed cough No Start Date 11/30/2015 Inactive pantoprazole 40 mg tablet,delayed release RxNorm: 357859 1 Tablet(s) PO daily No Start Date 07/01/2016 Inactive Xarelto 20 mg tablet RxNorm: 5986592 Tablet(s) PO No Start Date 03/24/2016 Inactive 15mg BID x 21 days then 20mg daily lorazepam 0.5 mg tablet RxNorm: 380126 1 Tablet(s) PO as doctor directed for seizures No Start Date 06/25/2015 Inactive Symbicort 160 mcg-4.5 mcg/actuation HFA aerosol inhaler RxNorm: 5848561 inhalation No Start Date 03/10/2016 Inactive Phenytek oral RxNorm: 709972 oral No Start Date 03/28/2014 Inactive aspirin 325 mg tablet,delayed release RxNorm: 998069 1 Tablet(s) PO QHS No Start Date 03/04/2016 Inactive Medication Administered Medication Codes Instructions Start Date Status Kenalog 40 mg/mL suspension for injection RxNorm: 1993995 1Milliliter 11/20/2015 No longer Active Immunizations Vaccine Codes Date Status Influenza CVX: 141 04/23/2016 completed Assessments Condition Codes Effective Dates Carpal tunnel syndrome, right upper limb ICD-10: G56.01 ICD-9: 354.0 09/09/2016 Olecranon bursitis, right elbow ICD-10: M70.21 ICD-9: 726.33 09/09/2016 Low back pain ICD-10: M54.5 ICD-9: 724.2 05/31/2016 Essential (primary) hypertension ICD-10: I10 ICD-9: 401.9 05/31/2016 Slow transit constipation ICD-10: K59.01 ICD-9: 564.01 03/29/2016 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 ICD-9: 415.13 03/11/2016 Cough ICD-10: R05 ICD-9: 786.2 03/11/2016 Encounter for follow-up examination after completed treatment for conditions other than malignant neoplasm ICD-10: Z09 ICD-9: V67.59 03/11/2016 Acute laryngopharyngitis ICD-10: J06.0 ICD-9: 465.0 02/23/2016 Wheezing ICD-10: R06.2 ICD-9: 786.07 02/23/2016 Other allergic rhinitis ICD-10: J30.89 ICD-9: 477.8 02/23/2016 Epilepsy, unspecified, not intractable, without status epilepticus ICD-10: G40.909 ICD-9: 345.90 01/16/2016 Morbid (severe) obesity due to excess calories ICD-10: E66.01 ICD-9: 278.01 12/26/2015 Allergic rhinitis due to pollen ICD-10: J30.1 ICD-9: 477.0 11/20/2015 Acute upper respiratory infection, unspecified ICD-10: J06.9 ICD-9: 465.9 11/20/2015 Other joint terminal attack controller (current) drug therapy ICD-10: Z79.899 ICD-9: V58.69 09/08/2015 Candidiasis of skin and nail ICD-10: B37.2 ICD-9: 112.3 09/01/2015 First degree hemorrhoids ICD-10: K64.0 ICD-9: 455.6 08/09/2015 Encounter for therapeutic drug level monitoring ICD-10: Z51.81 ICD-9: V58.61 02/03/2015 Encounter for screening for malignant neoplasm of prostate ICD- 10: Z12.5 ICD-9: V76.44 01/02/2015 Obesity, unspecified ICD-10: E66.9 ICD-9: 278.00 01/02/2015 [...] Visit Reason For Visit Effective Dates Notes hand pain 09/09/2016 pain 05/31/2016 body aches Hospital Follow Up 03/29/2016 Hospital Follow Up 03/11/2016 sinus congestion 02/23/2016 Post-op wound 01/16/2016 hypertension 12/26/2015 sinus congestion 11/20/2015 rash 09/01/2015 hypertension 08/09/2015 hypertension 06/26/2015 hypertension 11/18/2014 hypertension 11/01/2014 hypertension 10/27/2014 hypertension 2014 urinary frequency 05/05/2014 hypertension 04/26/2014 hypertension 03/29/2014 Results Observation Observation Code Item Item Code Result Date Comp Metabolic Adv106 NA 141 mEq/L 09/09/2016 Comp Metabolic Fxk355 K 3.8 mEq/L 09/09/2016 Comp Metabolic Jqm956 CL 108 mEq/L 09/09/2016 Comp Metabolic Dlg453 CO2 24.0 mEq/L 09/09/2016 Comp Metabolic Cyq452 ANION GAP 13 09/09/2016 Comp Metabolic Xvz867 GLUCOSE 134 mg/dL 09/09/2016 Comp Metabolic Dcf947 Creat 0.8 mg/dL 09/09/2016 Comp Metabolic Xat760 eGFR 113 ml/min/1.73m2 09/09/2016 Comp Metabolic Ihl594 BUN 16 mg/dL 09/09/2016 Comp Metabolic Cyu917 B/C Ratio 21.1 Ratio 09/09/2016 Comp Metabolic Rbd059 CALCIUM 8.8 mg/dL 09/09/2016 Comp Metabolic Cwk807 ALK PHOS 111 U/L 09/09/2016 Comp Metabolic Ain919 AST(SGOT) 16 U/L 09/09/2016 Comp Metabolic Mku001 ALT(SGPT) 16 U/L 09/09/2016 Comp Metabolic Yby373 BILI T 0.4 mg/dL 09/09/2016 Comp Metabolic Qcg270 ALBUMIN 3.8 g/dL 09/09/2016 Comp Metabolic Qst581 TPRO 7.0 g/dL 09/09/2016 Comp Metabolic Dtz302 GLOB 3.2 g/dL 09/09/2016 Comp Metabolic Zgs116 A/G Ratio 1.2 Ratio 09/09/2016 Comp Metabolic Lgc570 Osmo 284 mOsmo 09/09/2016 Cbc With Differential [...] 28.4 % 09/09/2016 Cbc With Differential Ord2 Boundary% 10.2 % 09/09/2016 Cbc With Differential Ord2 MCH 32.6 pg 09/09/2016 Cbc With Differential Ord2 MCHC 33.8 pg 09/09/2016 Cbc With Differential Ord2 Eos% 1.7 % 09/09/2016 Cbc With Differential Ord2 PLT 178 K/ul 09/09/2016 Cbc With Differential Ord2 Baso% 0.3 % 09/09/2016 Cbc With Differential Ord2 Neut ABS# 3.83 K/ul 09/09/2016 Cbc With Differential Ord2 RDW 13.4 % 09/09/2016 Cbc With Differential Ord2 Lymph ABS# 1.83 K/ul 09/09/2016 Cbc With Differential Ord2 Boundary ABS# 0.7 K/ul 09/09/2016 Cbc With Differential Ord2 Eos ABS# 0.1 K/ul 09/09/2016 Cbc With Differential Ord2 Baso ABS# 0.0 K/ul 09/09/2016 Dilantin Ord7 DILANTIN 12.5 UG/ML 09/09/2016 Tsh Ord6 hTSH II 1.64 uIU/mL 09/09/2016 Cbc With Differential Ord2 WBC 7.66 K/ul 12/26/2015 Cbc With Differential Ord2 RBC 4.84 M/ul 12/26/2015 Cbc With Differential Ord2 HGB 16.6 g/dl 12/26/2015 Cbc With Differential Ord2 Neut% 67.2 % 12/26/2015 Cbc With Differential Ord2 HCT 48.1 % 12/26/2015 Cbc With Differential Ord2 MCV 99.4 fl 12/26/2015 Cbc With Differential Ord2 Lymph% 22.3 % 12/26/2015 Cbc With Differential Ord2 MCH 34.3 pg 12/26/2015 Cbc With Differential Ord2 Boundary% 8.7 % 12/26/2015 Cbc With Differential Ord2 [...] 1.71 K/ul 12/26/2015 Cbc With Differential Ord2 Boundary ABS# 0.7 K/ul 12/26/2015 Cbc With Differential Ord2 Eos ABS# 0.1 K/ul 12/26/2015 Cbc With Differential Ord2 Baso ABS# 0.0 K/ul 12/26/2015 Tsh Ord6 hTSH II 2.81 uIU/mL 12/26/2015 Comp Metabolic Xlt521 NA 137 mEq/L 12/26/2015 Comp Metabolic Aih776 K 4.3 mEq/L 12/26/2015 Comp Metabolic Gzd186 CL 101 mEq/L 12/26/2015 Comp Metabolic Ybf763 CO2 27.0 mEq/L 12/26/2015 Comp Metabolic Shp287 ANION GAP 13 12/26/2015 Comp Metabolic Idq203 GLUCOSE 128 mg/dL 12/26/2015 Comp Metabolic Muj217 Creat 0.8 mg/dL 12/26/2015 Comp Metabolic Psd650 eGFR 104 ml/min/1.73m2 12/26/2015 Comp Metabolic Ihj228 BUN 16 mg/dL 12/26/2015 Comp Metabolic Pek806 B/C Ratio 19.5 Ratio 12/26/2015 Comp Metabolic Qki114 CALCIUM 9.2 mg/dL 12/26/2015 Comp Metabolic Hux013 ALK PHOS 107 U/L 12/26/2015 Comp Metabolic Eno826 AST(SGOT) 15 U/L 12/26/2015 Comp Metabolic Rrc730 ALT(SGPT) 15 U/L 12/26/2015 Comp Metabolic Mlp581 BILI T 0.4 mg/dL 12/26/2015 Comp Metabolic Ulc936 ALBUMIN 4.0 g/dL 12/26/2015 Comp Metabolic Gyb098 TPRO 7.6 g/dL 12/26/2015 Comp Metabolic Zwy622 GLOB 3.6 g/dL 12/26/2015 Comp Metabolic Cnk913 A/G Ratio 1.1 Ratio 12/26/2015 Comp Metabolic Jdw887 Osmo 277 mOsmo 12/26/2015 Dilantin Ord7 DILANTIN 17.3 UG/ML 12/26/2015 Dilantin Ord7 DILANTIN 16.5 UG/ML 09/15/2015 Dilantin Ord7 DILANTIN 17.2 UG/ML 09/08/2015 Dilantin Ord7 DILANTIN 22.3 UG/ML 09/01/2015 Review of Systems System Result Effective Dates Constitutional No recent illness 09/09/2016 Constitutional No [...] clear 10/27/2014 None Full Exam - General 1995 Ears/Nose/Throat lips/teeth/gingiva Overall: benign lips 10/27/2014 None [...] Codes Date TRIAMCINOLONE ACET INJ NOS CPT-4: [id number] 11/20/2015 Vital Signs Date Vital 09/09/2016 Blood Pressure 1: 140/80 Code: 8480-6 Heart Rate 1: 88 bpm Height: 5'11" SpO2: 96% Weight: 05/31/2016 Blood Pressure 1: 126/78 Code: 8480-6 BMI: 46.3 Code: 95231-0 Heart Rate 1: 75 bpm Height: 5'11" SpO2: 96% Weight: 332 lbs 03/29/2016 Blood Pressure 1: 146/78 Code: 8480-6 Heart Rate 1: 78 bpm Height: 5'11" SpO2: 97% Weight: 03/11/2016 Blood Pressure 1: 136/86 Code: 8480-6 BMI: 44.4 Code: 68376-5 Heart Rate 1: 77 bpm Height: 5'11" SpO2: 96% Weight: 318 lbs 02/23/2016 Blood Pressure 1: 146/94 Code: 8480-6 BMI: 44.4 Code: 87799-3 Heart Rate 1: 90 bpm Height: 5'11" SpO2: 93% Weight: 318 lbs 01/16/2016 Blood Pressure 1: 140/86 Code: 8480-6 BMI: 44.6 Code: 71960-5 Heart Rate 1: 75 bpm Height: 5'11" SpO2: 96% Weight: 320 lbs 12/26/2015 Blood Pressure 1: 130/78 Code: 8480-6 BMI: 43.7 Code: 94345-8 Heart Rate 1: 96 bpm Height: 5'11" SpO2: 98% Weight: 313 lbs 11/20/2015 Blood Pressure 1: 137/92 Code: 8480-6 Heart Rate 1: 84 bpm Height: SpO2: 98% Temperature: 36.7 (C) / 98.0 (F) Weight: 09/01/2015 Blood Pressure 1: 148/88 Code: 8480-6 BMI: 43.8 Code: 52360-4 Heart Rate 1: 73 bpm Height: 5'11" SpO2: 97% Weight: 314 lbs 08/09/2015 Blood Pressure 1: 138/78 Code: 8480-6 BMI: 45.0 Code: 12547-1 Heart Rate 1: 75 bpm Height: 5'11" SpO2: 98% Weight: 323 lbs 06/26/2015 Blood Pressure 1: 134/80 Code: 8480-6 BMI: 46.3 Code: 85047-6 Heart Rate 1: 78 bpm Height: 5'11" SpO2: 96% Weight: 332 lbs 11/18/2014 Blood Pressure 1: 130/78 Code: 8480-6 BMI: 44.4 Code: 90609-4 Heart Rate 1: 66 bpm Height: 5'11" SpO2: 98% Weight: 318 lbs 11/01/2014 Blood Pressure 1: 130/78 Code: 8480-6 BMI: 44.5 Code: 40887-6 Heart Rate 1: 78 bpm Height: 5'11" SpO2: 97% Weight: 319 lbs 10/27/2014 Blood Pressure 1: 152/88 Code: 8480-6 BMI: 43.9 Code: 95526-6 Heart Rate 1: 91 bpm Height: 5'11" SpO2: 98% Weight: 315 lbs 2014 Blood Pressure 1: 140/82 Code: 8480-6 BMI: 44.9 Code: 71974-3 Heart Rate 1: 78 bpm Height: 5'11" Weight: 322 lbs 05/05/2014 Blood Pressure 1: 142/88 Code: 8480-6 BMI: 40.9 Code: 33967-4 Heart Rate 1: 64 bpm Height: 5'11" Temperature: 37.3 (C) / 99.1 (F) Weight: 293 lbs 04/26/2014 Blood Pressure 1: 142/82 Code: 8480-6 BMI: 40.2 Code: 48789-5 Heart Rate 1: 64 bpm Height: 5'11" Weight: 288 lbs 03/29/2014 Blood Pressure 1: 138/84 Code: 8480-6 BMI: 39.3 Code: 09986-8 Heart Rate 1: 84 bpm Height: 5'11" Weight: 282 lbs Functional Status No Functional Status data History of Present Illness Symptom Name Status Result Effective Date Notes hand pain Location on the right 09/09/2016 [...] data Encounters Encounter Performer Location Codes Date ([id number]) [id number] EST. PATIENT, LEVEL III Diagnosis: Carpal tunnel syndrome, right upper limb[ICD10: G56.01] Diagnosis: Olecranon bursitis, right elbow[ICD10: M70.21] Betty Salamanca MD, [facility] CPT-4: 45387 09/09/2016 ([id number]) 36213 EST. PATIENT, LEVEL III Diagnosis: Essential (primary) hypertension[ICD10: I10] Diagnosis: Low back pain[ICD10: M54.5] Leelee Salamanca MD, [facility] CPT-4: 49815 05/31/2016 ([id number]) 30905 EST. PATIENT, LEVEL III Diagnosis: Essential (primary) hypertension[ICD10: I10] Diagnosis: Slow transit constipation[ICD10: K59.01] Leelee Salamanca MD, [facility] CPT-4: 26865 03/29/2016 ([id number]) 72954 EST. PATIENT, LEVEL IV Diagnosis: Saddle embolus of pulmonary artery without acute cor pulmonale[ICD10: I26.92] Diagnosis: Essential (primary) hypertension[ICD10: I10] Diagnosis: Cough[ICD10: R05] Diagnosis: Encounter for follow-up examination after completed treatment for conditions other than malignant neoplasm[ICD10: Z09] Leelee Salamanca MD, [facility] CPT-4: 62023 03/11/2016 23284 EST. PATIENT, LEVEL III Diagnosis: Acute laryngopharyngitis[ICD10: J06.0] Diagnosis: Other allergic rhinitis[ICD10: J30.89] Diagnosis: Cough[ICD10: R05] Diagnosis: Wheezing[ICD10: R06.2] [facility] CPT-4: 93037 02/23/2016 ([id number] 90835 EST. PATIENT, LEVEL III Diagnosis: Epilepsy, unspecified, not intractable, without status epilepticus[ICD10: G40.909] Betty Salamanca MD, [facility] CPT-4: 35424 01/16/2016 [id number]) [id number] EST. PATIENT, LEVEL IV Diagnosis: Essential (primary) hypertension[ICD10: I10] Diagnosis: Morbid (severe) obesity due to excess calories[ICD10: E66.01] Diagnosis: Epilepsy, unspecified, not intractable, without status epilepticus[ICD10: G40.909] Betty Salamanca MD, [facility] CPT-4: 31615 12/26/2015 ([id number]) 48252 EST. PATIENT, LEVEL III Diagnosis: Allergic rhinitis due to pollen[ICD10: J30.1] Diagnosis: Acute upper respiratory infection, unspecified[ICD10: J06.9] Leelee Salamanca MD, [facility] CPT-4: 04968 11/20/2015 [id number] EST. PATIENT, LEVEL IV Diagnosis: Other detention (current) drug therapy[ICD10: Z79.899] Diagnosis: Candidiasis of skin and nail[ICD10: B37.2] Elsie Salamanca MD, [facility] CPT-4: 18942 09/01/2015 ([id number]) 09458 EST. PATIENT, LEVEL IV Diagnosis: Epilepsy, unspecified, not intractable, without status epilepticus[ICD10: G40.909] Diagnosis: Essential (primary) hypertension[ICD10: I10] Diagnosis: First degree hemorrhoids[ICD10: K64.0] Diagnosis: Low back pain[ICD10: M54.5] Betty Salamanca MD, [facility] CPT-4: 00015 08/09/2015 ([id number]) 43331 EST. PATIENT, LEVEL IV Diagnosis: Essential (primary) hypertension[ICD10: I10] Diagnosis: Morbid (severe) obesity due to excess calories[ICD10: E66.01] Diagnosis: Epilepsy, unspecified, not intractable, without status epilepticus[ICD10: G40.909] [facility] CPT-4: 65076 06/26/2015 ([id number]) 12385 EST. PATIENT, LEVEL IV Diagnosis: ESSENTIAL HYPERTENSION[ICD9: 401.9] Diagnosis: Small bowel obstruction[ICD9: 560.9] Diagnosis: Hospital discharge follow-up[ICD9: V67.59] Betty Salamanca MD, [facility] CPT-4: 99781 11/18/2014 ([id number]) 97307 EST. PATIENT, LEVEL III Diagnosis: Diarrhea[ICD9: 787.91] Diagnosis: Abdominal pain[ICD9: 789.00] Betty Salamanca MD, [facility] CPT-4: 78123 11/01/2014 ([id number]) 84440 EST. PATIENT, LEVEL III Diagnosis: ESSENTIAL HYPERTENSION[ICD9: 401.9] Diagnosis: Diarrhea[ICD9: 787.91] Leelee Salamanca MD, [facility] CPT-4: 67331 10/27/2014 ([id number]) 90933 EST. PATIENT, LEVEL IV Diagnosis: Factor V Leiden mutation[ICD9: 289.81] Diagnosis: Hx of deep venous thrombosis[ICD9: V12.51] Diagnosis: ESSENTIAL HYPERTENSION[ICD9: 401.9] Diagnosis: OBESITY[ICD9: 278.00] Betty Salamanca MD, [facility] CPT-4: 58640 2014 ([id number]) 50192 EST. PATIENT, LEVEL III Diagnosis: Hematuria[ICD9: 599.70] Diagnosis: LONG-TERM USE ANTICOAGUL[ICD9: V58.61] Leelee Salamanca MD, [facility] CPT-4: 02087 05/05/2014 ([id number]) 22014 EST. PATIENT, LEVEL IV Diagnosis: ESSENTIAL HYPERTENSION[ICD9: 401.9] Diagnosis: LONG-TERM USE ANTICOAGUL[ICD9: V58.61] Diagnosis: MORBID OBESITY[ICD9: 278.01] Diagnosis: Abscess and cellulitis[ICD9: 682.9] Betty Salamanca MD, [facility] CPT- 4: 02922 04/26/2014 ([id number]) OFFICE VISIT, NEW - LEVEL 4 Diagnosis: ESSENTIAL HYPERTENSION[ICD9: 401.9] Diagnosis: LONG-TERM USE ANTICOAGUL[ICD9: V58.61] Betty Salamanca MD, [facility] CPT-4: 78589 03/29/2014 Plan of Care Planned Activity Notes Codes Status Date Visit Plan: on the rash on your foot, use benadryl cream mixed with cortisone cream - use a jerica size portion of bothCarpal tunnel -wear a carpal tunnel brace at night and a tennis elbow brace during the dayuse aspercreme on your elbow and wrist at least twice a day 09/09/2016 Patient Education: Patient Medication Summary Completed 09/09/2016 Visit Plan: Hypertension - well controlled - continue with current medications, continue with no added salt diet. Pt has been encouraged to exercise daily.The pt has been advised to call the office if there are any acute concerns about change in blood pressure readings at home.Low back pain- the patient was instructed in appropriate posture, need for weight loss to alleviate abdominal obesity that is worsening the patient's back pain.. The pt is to use prn antiinflammatories to manage acute pain. The patient is to call the office if the pain is worsening or does not improve. 05/31/2016 Appointment: Leelee Weinstein WPtel: [address] [place], [place] [phone] (30 min) Complex 05/31/2016 Patient Education: Patient Medication Summary Completed 05/31/2016 Patient Education: Obesity Completed 05/31/2016 Patient Education: Hypertension Completed 05/31/2016 Appointment: Leelee Weinstein WPtel: [address] [place], [place] [phone] (30 min) Complex 04/01/2016 Visit Plan: Hypertension - well controlled - continue with current medications, continue with no added salt diet. Pt has been encouraged to exercise daily.The pt has been advised to call the office if there are any acute concerns about change in blood pressure readings at home.Constipation-reassured Panda that he does not have a bowel obstruction-normal formed BMs the last 2 days-no abdominal pain-good bowel sounds-instructed adequate water and fiber intake and to call if symptoms uncontrolled-patient verbalized understanding of plan. 03/29/2016 Appointment: Leelee Weinstein WPtel: [phone] (15 min) Moderate 03/29/2016 Patient Education: Patient Medication Summary Completed 03/29/2016 Patient Education: Hypertension Completed 03/29/2016 Visit Plan: Bilateral PE-hospital follow up-on xarelto-symptoms improving Znmlj-hjnqtdtbcx-rwgtdbmi-continue symbicort twice daily as directed Hypertension - well controlled - continue with current medications, continue with no added salt diet. Pt has been encouraged to exercise daily.The pt has been advised to call the office if there are any acute concerns about change in blood pressure readings at home. 03/11/2016 Appointment: Leelee Weinstein WPtel: [phone] (30 min) Complex 03/11/2016 Patient Education: Patient Medication Summary Completed 03/11/2016 Patient Education: Obesity Completed 03/11/2016 Visit Plan: URI - Pt advised to increase fluids, vitamin C. Discussed natural and expected course of this diagnosis and need to alert me if symptoms do not follow expected course, or if any worse. RX sent to patient's pharmacy.Allergies - chronic - recommended pt to use allergy medication as prescribed. Pt has been counseled as to the appropriate use of the medication. Pt to call if allergy symptoms are not controlled with the medication.If using nasal spray, instructions as follows: Nasal spray- use twice daily, one spray per nostril twice daily, after 30 minutes, rinse out nose with saline spray.. Use opposite hand per nostril to spray in the nasal steroid allergy spray. 02/23/2016 Appointment: Elsie Mosquera WPtel: [facility] (15 min) Moderate 02/23/2016 Patient Education: Patient Medication Summary Completed 02/23/2016 Patient Education: Obesity Completed 02/23/2016 Visit Plan: Epilepsy - continue with phenytekwound improving 01/16/2016 Appointment: Betty Salamanca WPtel: [address] [place], [place] [phone] (15 min) Moderate 01/16/2016 Patient Education: Patient Medication Summary Completed 01/16/2016 Visit Plan: Hypertension - well controlled - continue with current medications, continue with no added salt diet. Pt has been encouraged to exercise daily.The pt has been advised to call the office if there are any acute concerns about change in blood pressure readings at home.Morbid Obesity - pt has been loosing weight - has been more physically active - continue with activity.Epilepsy - continue with current anti-epileptic 12/26/2015 Appointment: Betty Salamanca WPtel: [facility] [place] (15 min) Moderate 12/26/2015 Patient Education: Patient [...] allergy symptoms are not controlled with the medication.If using nasal spray, instructions as follows: Nasal spray- use twice daily, one spray per nostril twice daily, after 30 minutes, rinse out nose with saline spray.. Use opposite hand per nostril to spray in the nasal steroid allergy spray.Kenalog injection today in the office. URI - Pt advised to increase fluids, vitamin C. Discussed natural and expected course of this diagnosis and need to alert me if symptoms do not follow expected course, or if any worse. RX sent to patient's pharmacy to take if symptoms do not resolve 11/20/2015 Appointment: Leelee Weinstein WPtel: [address] [place], [place] [phone] (15 min) Moderate 11/20/2015 Patient Education: Patient [...] in pain. 09/01/2015 Appointment: Leelee Weinstein WPtel: [address] [place], [place] [phone] (30 min) Complex 09/01/2015 Patient Education: Patient Medication Summary Completed 09/01/2015 Referral: Ady Oswald WPtel:[phone] Referral Completed 08/30/2015 Visit Plan: Hypertension - well controlled - continue with current medications, continue with no added salt diet. Pt has been encouraged to exercise daily.The pt has been advised to call the office if there are any acute concerns about change in blood pressure readings at home.Hemorrhoids - RX for anucort suppository.Back pain - history of spinal fusion - recommended pt to avoid heavy labor - he needs to try not to do so much heavy lifting.Seizure disorder - symptoms stable - no change in medications. 08/09/2015 Patient Education: Patient Medication Summary Completed 08/09/2015 Patient Education: Obesity Completed 08/09/2015 Patient Education: Hypertension Completed 08/09/2015 Care Plan: Referral Order SNOMED-CT : [id number] Pending 07/12/2015 Visit Plan: Hypertension - well controlled - continue with current medications, continue with no added salt diet. Pt has been encouraged to exercise daily.The pt has been advised to call the office if there are any acute concerns about change in blood pressure readings at home.referral to dr. oswald for colonoscopy in the summerSeizure disorder - no change in medication for [...] Patient Medication Summary Completed 01/02/2015 Care Plan: Total Psa Pending 01/02/2015 Care Plan: Lipid Pending 01/02/2015 Care Plan: Cbc With Differential Pending 01/02/2015 Care Plan: Comp Metabolic Pending 01/02/2015 Appointment: (15 min) Moderate 11/28/2014 Visit Plan: Hypertension - well controlled - continue with current medications, continue with no added salt diet. Pt has been encouraged to exercise daily.The pt has been advised to call the office if there are any acute concerns about change in blood pressure readings at home.Hospital follow up-small bowel obstruction-resolved - This was [...] acute worsening of stomach upset or stomach pain.Pt to start on flagyl. 11/01/2014 Appointment: Betty Salamanca WPtel: [facility] (15 min) Moderate 11/01/2014 Patient Education: Patient Medication Summary Completed 11/01/2014 Visit Plan: Hypertension - elevated today but well controlled at home - continue with current medications, continue with no added salt diet. Pt has been encouraged to exercise daily.The pt has been advised to call the office if there are any acute concerns about change in blood pressure readings at home.Diarrhea - recommended bland diet, low fat diet, start on probiotic, and rehydrate with gatorade-like product. Pt to call if feeling worse, diarrhea becomes bloody, or does not improve with above recommendations. Pt to call for acute worsening of stomach upset or stomach pain.Obesity-patient lost 7#-continue to decrease calories and avoid snacking 10/27/2014 Appointment: (30 min) Complex 10/27/2014 Patient Education: Patient Medication Summary Completed 10/27/2014 Patient Education: Hypertension Completed 10/27/2014 Visit Plan: Hypertension - not controlled - continue with current medication at increased dose of 25mg hctz., continue with no added salt diet. Pt has been encouraged to exercise daily.The pt has been advised to call the office if there are any acute concerns about change in blood pressure readings at home.Hx of Facotr v leiden mutation - referral to oncology/hematology.Obesity - recommended pt to decrease caloric intake - monitor weight closely - 2014 Appointment: Betty Salamanca WPtel: [facility] [place] Follow up 2014 Patient Education: Patient Medication Summary Completed 2014 Patient Education: Hypertension Completed 2014 Care Plan: Referral Order SNOMED-CT : [id number] Ordered 2014 Visit Plan: Hematuria-per patient report-no pain or difficulty voiding-check UA with C&S if indicated as well as PT/INRChronic Anticoagulant use - Pt has been counseled [...] diet. Pt has been encouraged to exercise daily.The pt has been advised to call the office if there are any acute concerns about change in blood pressure readings at home.Cellulitis - continue with oral antibiotics as previously directed, return to clinic as previously directed, call for acute change in symptoms, worsening redness, warmth, discharge.Chronic Anticoagulant use - Pt has been counseled about the anticoagulant, need for serial monitoring, and need for the pt to alert the physician as to any new bruising, or acute bleeding. Theraputic goal for INR is between 2.0 and 3.5.Obesity - chronic issue with this patient. The pt has been counseled about diet changes, calorie restriction, and need to exercise. Pt will RTC in one month for weight check. 04/26/2014 Appointment: Betty Salamanca WPtel: [phone] [facility] Follow up 04/26/2014 Patient Education: Patient Medication Summary Completed 04/26/2014 Patient Education: Hypertension Completed 04/26/2014 Visit Plan: Hypertension - well controlled - continue with current medications, continue with no added salt diet. Pt has been encouraged to exercise daily.The pt has been advised to call the office if there are any acute concerns about change in blood pressure readings at home.Seizure disorder - recommended pt to continue with current medications - check phenytoin level in two weeks.Chronic Anticoagulant use - Pt has been counseled about the anticoagulant, need for serial monitoring, and need for the pt to alert the physician as to any new bruising, or acute bleeding. Theraputic goal for INR is between 2.0 and 3.5. 03/29/2014 Appointment: Betty Salamanca WPtel: [phone] [facility] New Patient 03/29/2014 Patient Education: Patient Medication Summary Completed 03/29/2014 Patient Education: Hypertension Completed 03/29/2014 Referral: Madhu Hall MD WPtel: [facility] [place] Referral Completed Referral: Ady Oswald WPtel:[phone] Referral Appointment Requested Instructions Comment . Hypertension [...] symptoms stable - no change in medications. weight loss goal of 1/2 pound a [...] . Bilateral PE-hospital follow up-on xarelto-symptoms improving Aujop-llhfitfbeq-ckpbqisc-continue symbicort twice daily as directed Hypertension - [...] and wrist at least twice a day coumadin - when restarting - start on [...] pain. Pt to start on flagyl. . Candidal rash in left axilla - [...] Epilepsy - continue with current anti-epileptic . Allergies - chronic - recommended pt [...]
--- OUTSIDE RECORDS SUMMARY | 2018-09-06 06:13 | XMS REPORT | CCD ---
Author Author Betty Salamanca Organization [facility] Address [address] [place] [address] Phone Care Team Providers Care White Washer Piler Name Role Phone PP Unavailable CCM Unavailable Summary Purpose Interface Exchange Insurance Providers Payer name Policy type / Coverage type Covered green party ID Effective Begin Date Effective End Date Blue Cross Blue [facility] Blue Cross/Blue Shield [id number] Unknown Unknown Family history Father Diagnosis Age At Onset Coronary Artery Disease Unknown Mother Diagnosis Age At Onset Cancer Unknown Cancer Unknown Social History Social History Element Codes Description Effective Dates Number of children Unknown 0 06/26/2015 Employment Unknown 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 [employer] 06/26/[address]: 375244378 Never smoker 06/26/[address]: 174616767 Never drinks alcohol 06/26/2015 Marital status Unknown [place] 04/26/2014 Allergies, Adverse Reactions, Alerts Allergies, Adverse Reactions, Alerts data not found Past Medical History Illness Codes Condition Status Onset Date Resolved Date Essential (primary) hypertension ICD-9: 401.9 ICD-10: I10 [...] 477.0 ICD-10: J30.1 Active 11/19/2015 Unknown Other retirement (current) drug therapy ICD-9: V58.69 ICD-10: Z79.899 [...] Problems Condition Codes Effective Dates Condition Status Essential (primary) hypertension ICD-9: 401.9 ICD-10: I10 [...] ICD-9: 477.0 ICD-10: J30.1 11/19/2015 Active Other retirement (current) drug therapy ICD-9: V58.69 ICD-10: Z79.899 [...] Fill Instructions Phenytek 200 mg capsule RxNorm: 195961 TAKE TWO CAPSULES BY MOUTH DAILY WITH 300 MG CAPSULE TO EQUAL 700 MG TOTAL DAILY 09/03/2016 01/30/2017 Active Xarelto 20 mg tablet RxNorm: 5761317 TAKE ONE TABLET BY MOUTH DAILY 07/23/2016 10/20/2016 Active pantoprazole 40 mg tablet,delayed release RxNorm: 074607 TAKE ONE TABLET BY MOUTH TWICE A DAY AT 7 AM AND 9 PM 07/02/2016 12/28/2016 Active Xarelto 20 mg tablet RxNorm: 6668405 1 Tablet(s) PO daily 03/25/2016 07/22/2016 Inactive Symbicort 160 mcg-4.5 mcg/actuation HFA aerosol inhaler RxNorm: 6287089 2 Puff(s) INH BID 03/11/2016 No Stop Date Active Phenytek 200 mg capsule RxNorm: 497293 TAKE TWO CAPSULES BY MOUTH DAILY WITH 300 MG CAPSULE TO EQUAL 700 MG TOTAL DAILY 03/08/2016 09/02/2016 Inactive Ventolin HFA 90 mcg/actuation aerosol inhaler RxNorm: 414432 1 Puff(s) INH Q4-6H as needed 02/23/2016 No Stop Date Active prednisone 20 mg tablet RxNorm: 789319 2 Tablet(s) PO daily 02/23/2016 02/27/2016 Inactive Augmentin 875 mg-125 mg tablet RxNorm: 797966 1 Tablet(s) PO BID 02/23/2016 02/25/2016 Inactive nystatin 100,000 unit/gram topical powder RxNorm: 239027 1 Gram(s) TOP TID 01/16/2016 01/25/2016 Inactive Phenergan-Codeine 6.25 mg-10 mg/5 mL syrup RxNorm: 391740 5-10 Milliliter(s) PO Q6 as needed cough 12/01/2015 No Stop Date Active Zithromax 250 mg tablet RxNorm: 870629 1 Tablet(s) PO daily 11/23/2015 11/26/2015 Inactive Zithromax 250 mg tablet RxNorm: 723532 1 Tablet(s) PO daily 11/23/2015 11/22/2015 Inactive Zithromax Z-Kevin 250 mg tablet RxNorm: 001883 1 Tablet(s) PO UD 11/20/2015 11/24/2015 Inactive zpack Kenalog 40 mg/mL suspension for injection RxNorm: 8788191 1 Milliliter(s) Inj 11/20/2015 11/20/2015 Inactive Coumadin 4 mg tablet RxNorm: 695523 TAKE TWO TABLETS BY MOUTH EVERY EVENING FOR 3 DAYS, THEN TAKE TAKE ONE TABLET BY MOUTH EVERY EVENING THEREAFTER 11/20/2015 03/10/2016 Inactive hydrochlorothiazide 25 mg tablet RxNorm: 651201 TAKE ONE TABLET BY MOUTH DAILY 10/11/2015 03/10/2016 Inactive Phenytek 300 mg capsule RxNorm: 752756 1 Capsule(s) PO daily take with two 200mg tablets to equal 700mg 09/01/2015 03/28/2016 Inactive triamcinolone acetonide 0.025 % topical ointment RxNorm: 8212422 1 Application TOP BID 09/01/2015 No Stop Date Active nystatin 100,000 unit/gram topical cream RxNorm: 748970 1 Gram(s) TOP BID 09/01/2015 09/08/2016 Inactive nystatin 100,000 unit/gram topical powder RxNorm: 997410 1 Application TOP 09/01/2015 09/01/2015 Inactive Anucort-HC 25 mg suppository RxNorm: 6672816 1 Suppository RTL BID x 1 week then as needed 08/09/2015 No Stop Date Active Phenytek 300 mg capsule RxNorm: 718786 1 Capsule(s) PO daily take with two 200mg tablets to equal 700mg 08/02/2015 08/31/2015 Inactive Phenytek 200 mg capsule RxNorm: 950050 Capsule(s) TAKE TWO CAPSULES BY MOUTH DAILY. TAKE WITH 300MG CAPSULE TO EQUAL 700MG TOTAL DAILY. 08/02/2015 02/27/2016 Inactive lorazepam 1 mg tablet RxNorm: 648876 1 Tablet(s) PO QID as needed seizure activity 06/26/2015 07/25/2015 Inactive Phenytek 200 mg capsule RxNorm: 976972 TAKE TWO CAPSULES BY MOUTH DAILY. TAKE WITH 300MG CAPSULE TO EQUAL 700MG TOTAL DAILY. 05/25/2015 07/23/2015 Inactive Phenytek 200 mg capsule RxNorm: 341826 TAKE TWO CAPSULES BY MOUTH DAILY. TAKE WITH 300MG CAPSULE TO EQUAL 700MG TOTAL DAILY. 05/03/2015 05/24/2015 Inactive hydrochlorothiazide 25 mg tablet RxNorm: 438078 TAKE ONE TABLET BY MOUTH DAILY 03/27/2015 09/22/2015 Inactive hydrochlorothiazide 25 mg tablet RxNorm: 285005 TAKE ONE TABLET BY MOUTH DAILY 03/27/2015 09/22/2015 Inactive Phenytek 300 mg capsule RxNorm: 478713 1 Capsule(s) PO daily take with 2 200mg tablets to equal 700mg 01/04/2015 08/01/2015 Inactive Coumadin 1 mg tablet RxNorm: 251700 TAKE 1 TABLET BY MOUTH DOCTOR DIRECTED 12/19/2014 03/18/2015 Inactive Coumadin 4 mg tablet RxNorm: 970977 1 Tablet(s) PO QPM when starting, pt to take 4mg two pills nightly x 3 nights then take one pill daily) 12/05/2014 06/25/2015 Inactive Phenytek 200 mg capsule RxNorm: 222711 TAKE TWO CAPSULES BY MOUTH DAILY. TAKE WITH 300MG CAPSULE TO EQUAL 700MG TOTAL DAILY. 11/08/2014 05/02/2015 Inactive metronidazole 500 mg tablet RxNorm: 361793 1 Tablet(s) PO TID 11/01/2014 11/10/2014 Inactive hydrochlorothiazide 25 mg tablet RxNorm: 325547 1 Tablet(s) PO daily 2014 03/26/2015 Inactive Coumadin 1 mg tablet RxNorm: 210545 TAKE 1 TABLET BY MOUTH DOCTOR DIRECTED 08/19/2014 10/31/2014 Inactive Coumadin 1 mg tablet RxNorm: 635048 1 Tablet(s) PO as doctor directed 07/21/2014 08/18/2014 Inactive Coumadin 1 mg tablet RxNorm: 187545 1 Tablet(s) PO as doctor directed 07/21/2014 07/20/2014 Inactive hydrochlorothiazide 12.5 mg tablet RxNorm: 369732 1 Tablet(s) PO daily 06/15/2014 08/28/2014 Inactive Coumadin 5 mg tablet RxNorm: 898471 1 Tablet(s) PO QPM 05/12/2014 10/31/2014 Inactive check lab in 2 weeks Bactrim DS 800 mg-160 mg tablet RxNorm: 294197 1 Tablet(s) PO BID 05/10/2014 05/09/2014 Inactive start after UA given to lab Bactrim DS 800 mg-160 mg tablet RxNorm: 508973 1 Tablet(s) PO BID 05/10/2014 05/16/2014 Inactive start after UA given to lab today Keflex 500 mg capsule RxNorm: 382618 1 Capsule(s) PO TID 04/26/2014 05/05/2014 Inactive Phenytek 300 mg capsule RxNorm: 747303 1 Capsule(s) PO daily 03/29/2014 03/28/2014 Inactive Phenytek 300 mg capsule RxNorm: 005738 1 Capsule(s) PO daily take with 2 200mg tablets to equal 700mg 03/29/2014 10/24/2014 Inactive Phenytek 200 mg capsule RxNorm: 041716 2 Capsule(s) PO daily take with a 300mg capsule to equal 700mg daily 03/29/2014 10/24/2014 Inactive Coumadin 4 mg tablet RxNorm: 100193 1 Tablet(s) PO QPM when starting, pt to take 4mg two pills nightly x 3 nights then take one pill daily) 03/29/2014 05/11/2014 Inactive hydrochlorothiazide 12.5 mg tablet RxNorm: 180093 1 Tablet(s) PO daily 03/29/2014 06/14/2014 Inactive Aspirin Low Dose 81 mg tablet,delayed release RxNorm: 204524 1 Tablet(s) PO daily No Start Date Active metoprolol succinate ER 25 mg tablet,extended release 24 hr RxNorm: 921949 1 Tablet(s) PO daily No Start Date Active Phenergan-Codeine 6.25 mg-10 mg/5 mL syrup RxNorm: 507144 5-10 Milliliter(s) PO Q6 as needed cough No Start Date 11/30/2015 Inactive pantoprazole 40 mg tablet,delayed release RxNorm: 693006 1 Tablet(s) PO daily No Start Date 07/01/2016 Inactive Xarelto 20 mg tablet RxNorm: 1546890 Tablet(s) PO No Start Date 03/24/2016 Inactive 15mg BID x 21 days then 20mg daily lorazepam 0.5 mg tablet RxNorm: 467766 1 Tablet(s) PO as doctor directed for seizures No Start Date 06/25/2015 Inactive Symbicort 160 mcg-4.5 mcg/actuation HFA aerosol inhaler RxNorm: 1935495 inhalation No Start Date 03/10/2016 Inactive Phenytek oral RxNorm: 960608 oral No Start Date 03/28/2014 Inactive aspirin 325 mg tablet,delayed release RxNorm: 565278 1 Tablet(s) PO QHS No Start Date 03/04/2016 Inactive Medication Administered Medication Codes Instructions Start Date Status Kenalog 40 mg/mL suspension for injection RxNorm: 6924584 1Milliliter 11/20/2015 No longer Active Immunizations Vaccine Codes Date Status Influenza CVX: 141 04/23/2016 completed Assessments Condition Codes Effective Dates Low back pain ICD-10: M54.5 ICD-9: 724.2 [...] unspecified ICD-10: J06.9 ICD-9: 465.9 11/20/2015 Other remote computer terminal operator (current) drug therapy ICD-10: Z79.899 ICD-9: V58.69 [...] Visit Reason For Visit Effective Dates Notes pain 05/31/2016 body aches Hospital Follow Up 03/29/2016 Hospital Follow Up 03/11/2016 sinus congestion 02/23/2016 Post-op wound 01/16/2016 hypertension 12/26/2015 sinus congestion 11/20/2015 rash 09/01/2015 hypertension 08/09/2015 hypertension 06/26/2015 hypertension 11/18/2014 hypertension 11/01/2014 hypertension 10/27/2014 hypertension 2014 urinary frequency 05/05/2014 hypertension 04/26/2014 hypertension 03/29/2014 Results Observation Observation Code Item Item Code Result Date Cbc With Differential Ord2 WBC 6.45 K/ul 09/09/2016 Cbc With Differential Ord2 RBC 4.32 M/ul 09/09/2016 Cbc With Differential Ord2 HGB 14.1 g/dl 09/09/2016 Cbc With Differential Ord2 HCT 41.7 % 09/09/2016 Cbc With Differential Ord2 Neut% 59.4 % 09/09/2016 Cbc With Differential Ord2 MCV 96.5 fl 09/09/2016 Cbc With Differential Ord2 Lymph% 28.4 % 09/09/2016 Cbc With Differential Ord2 [place]% 10.2 % 09/09/2016 Cbc With Differential Ord2 [...] 1.83 K/ul 09/09/2016 Cbc With Differential Ord2 [place] ABS# 0.7 K/ul 09/09/2016 Cbc With Differential Ord2 Eos ABS# 0.1 K/ul 09/09/2016 Cbc With Differential Ord2 Baso ABS# 0.0 K/ul 09/09/2016 Cbc With Differential Ord2 WBC 7.66 [...] 34.3 pg 12/26/2015 Cbc With Differential Ord2 [place]% 8.7 % 12/26/2015 Cbc With Differential Ord2 [...] 1.71 K/ul 12/26/2015 Cbc With Differential Ord2 [place] ABS# 0.7 K/ul 12/26/2015 Cbc With Differential Ord2 Eos ABS# 0.1 K/ul 12/26/2015 Cbc With Differential Ord2 Baso ABS# 0.0 K/ul 12/26/2015 Tsh Ord6 hTSH II 2.81 uIU/mL 12/26/2015 Comp Metabolic Sjq075 NA 137 mEq/L 12/26/2015 Comp Metabolic Aek161 K 4.3 mEq/L 12/26/2015 Comp Metabolic Ljg669 CL 101 mEq/L 12/26/2015 Comp Metabolic Swz602 CO2 27.0 mEq/L 12/26/2015 Comp Metabolic Dai153 ANION GAP 13 12/26/2015 Comp Metabolic Vsk447 GLUCOSE 128 mg/dL 12/26/2015 Comp Metabolic Ynh311 Creat 0.8 mg/dL 12/26/2015 Comp Metabolic Gax830 eGFR 104 ml/min/1.73m2 12/26/2015 Comp Metabolic Flx981 BUN 16 mg/dL 12/26/2015 Comp Metabolic Krz749 B/C Ratio 19.5 Ratio 12/26/2015 Comp Metabolic Spe279 CALCIUM 9.2 mg/dL 12/26/2015 Comp Metabolic Vfr087 ALK PHOS 107 U/L 12/26/2015 Comp Metabolic Omu273 AST(SGOT) 15 U/L 12/26/2015 Comp Metabolic Aym301 ALT(SGPT) 15 U/L 12/26/2015 Comp Metabolic Obv721 BILI T 0.4 mg/dL 12/26/2015 Comp Metabolic Kzh060 ALBUMIN 4.0 g/dL 12/26/2015 Comp Metabolic Aro133 TPRO 7.6 g/dL 12/26/2015 Comp Metabolic Siz372 GLOB 3.6 g/dL 12/26/2015 Comp Metabolic Jvv651 A/G Ratio 1.1 Ratio 12/26/2015 Comp Metabolic Yme605 Osmo 277 mOsmo 12/26/2015 Dilantin Ord7 DILANTIN 17.3 UG/ML 12/26/2015 Dilantin Ord7 DILANTIN 16.5 UG/ML 09/15/2015 Dilantin Ord7 DILANTIN 17.2 UG/ML 09/08/2015 Dilantin Ord7 DILANTIN 22.3 UG/ML 09/01/2015 Review of Systems System Result Effective Dates Constitutional No recent illness 05/31/2016 Constitutional No [...] Codes Date TRIAMCINOLONE ACET INJ NOS CPT-4: [id number] 11/20/2015 Vital Signs Date Vital 05/31/2016 Blood Pressure 1: 126/78 Code: 8480-6 BMI: 46.3 Code: 89509-6 Heart Rate 1: 75 bpm Height: 5'11" SpO2: 96% Weight: 332 lbs 03/29/2016 Blood Pressure 1: 146/78 Code: 8480-6 Heart Rate 1: 78 bpm Height: 5'11" SpO2: 97% Weight: 03/11/2016 Blood Pressure 1: 136/86 Code: 8480-6 BMI: 44.4 Code: 40417-8 Heart Rate 1: 77 bpm Height: 5'11" SpO2: 96% Weight: 318 lbs 02/23/2016 Blood Pressure 1: 146/94 Code: 8480-6 BMI: 44.4 Code: 35063-7 Heart Rate 1: 90 bpm Height: 5'11" SpO2: 93% Weight: 318 lbs 01/16/2016 Blood Pressure 1: 140/86 Code: 8480-6 BMI: 44.6 Code: 28606-7 Heart Rate 1: 75 bpm Height: 5'11" SpO2: 96% Weight: 320 lbs 12/26/2015 Blood Pressure 1: 130/78 Code: 8480-6 BMI: 43.7 Code: 49459-9 Heart Rate 1: 96 bpm Height: 5'11" SpO2: 98% Weight: 313 lbs 11/20/2015 Blood Pressure 1: 137/92 Code: 8480-6 Heart Rate 1: 84 bpm Height: SpO2: 98% Temperature: 36.7 (C) / 98.0 (F) Weight: 09/01/2015 Blood Pressure 1: 148/88 Code: 8480-6 BMI: 43.8 Code: 10392-9 Heart Rate 1: 73 bpm Height: 5'11" SpO2: 97% Weight: 314 lbs 08/09/2015 Blood Pressure 1: 138/78 Code: 8480-6 BMI: 45.0 Code: 98336-4 Heart Rate 1: 75 bpm Height: 5'11" SpO2: 98% Weight: 323 lbs 06/26/2015 Blood Pressure 1: 134/80 Code: 8480-6 BMI: 46.3 Code: 57254-8 Heart Rate 1: 78 bpm Height: 5'11" SpO2: 96% Weight: 332 lbs 11/18/2014 Blood Pressure 1: 130/78 Code: 8480-6 BMI: 44.4 Code: 44541-0 Heart Rate 1: 66 bpm Height: 5'11" SpO2: 98% Weight: 318 lbs 11/01/2014 Blood Pressure 1: 130/78 Code: 8480-6 BMI: 44.5 Code: 49132-0 Heart Rate 1: 78 bpm Height: 5'11" SpO2: 97% Weight: 319 lbs 10/27/2014 Blood Pressure 1: 152/88 Code: 8480-6 BMI: 43.9 Code: 65627-2 Heart Rate 1: 91 bpm Height: 5'11" SpO2: 98% Weight: 315 lbs 2014 Blood Pressure 1: 140/82 Code: 8480-6 BMI: 44.9 Code: 46725-3 Heart Rate 1: 78 bpm Height: 5'11" Weight: 322 lbs 05/05/2014 Blood Pressure 1: 142/88 Code: 8480-6 BMI: 40.9 Code: 68710-5 Heart Rate 1: 64 bpm Height: 5'11" Temperature: 37.3 (C) / 99.1 (F) Weight: 293 lbs 04/26/2014 Blood Pressure 1: 142/82 Code: 8480-6 BMI: 40.2 Code: 19470-1 Heart Rate 1: 64 bpm Height: 5'11" Weight: 288 lbs 03/29/2014 Blood Pressure 1: 138/84 Code: 8480-6 BMI: 39.3 Code: 94497-6 Heart Rate 1: 84 bpm Height: 5'11" Weight: 282 lbs Functional Status No Functional Status data History of Present Illness Symptom Name Status Result Effective Date Notes pain Location-Major in a generalized area 05/31/2016 [...] data Encounters Encounter Performer Location Codes Date ) 21514 EST. PATIENT, LEVEL III Diagnosis: Essential (primary) hypertension[ICD10: I10] Diagnosis: Low back pain[ICD10: M54.5] Leelee Salamanca MD, [facility] CPT-4: 92236 05/31/2016 [id number]) 87639 EST. PATIENT, LEVEL III Diagnosis: Essential (primary) hypertension[ICD10: I10] Diagnosis: Slow transit constipation[ICD10: K59.01] Leelee Salamanca MD, [facility] CPT-4: 31677 03/29/2016 [id number]) 45458 EST. 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 PATIENT, LEVEL III Diagnosis: Acute laryngopharyngitis[ICD10: J06.0] Diagnosis: Other allergic rhinitis[ICD10: J30.89] Diagnosis: Cough[ICD10: R05] Diagnosis: Wheezing[ICD10: R06.2] Elsie Salamanca MD, [facility] CPT-4: 86749 02/23/2016 ([id number]) 53037 EST. PATIENT, LEVEL III Diagnosis: Epilepsy, unspecified, not intractable, without status epilepticus[ICD10: G40.909] Betty Salamanca MD, [facility] CPT-4: 58349 01/16/2016 ([id number]) 24676 EST. PATIENT, LEVEL IV Diagnosis: Essential (primary) hypertension[ICD10: I10] Diagnosis: Morbid (severe) obesity due to excess calories[ICD10: E66.01] Diagnosis: Epilepsy, unspecified, not intractable, without status epilepticus[ICD10: G40.909] Betty Salamanca MD, [facility] CPT-4: 74455 12/26/2015 ([id number]) 29387 EST. PATIENT, LEVEL III Diagnosis: Allergic rhinitis due to pollen[ICD10: J30.1] Diagnosis: Acute upper respiratory infection, unspecified[ICD10: J06.9] Leelee Salamanca MD, [facility] CPT-4: 38531 11/20/2015 87877 EST. PATIENT, LEVEL IV Diagnosis: Other remote computer terminal operator (current) drug therapy[ICD10: Z79.899] Diagnosis: Candidiasis of skin and nail[ICD10: B37.2] Elsie Salamanca MD, [facility] CPT-4: 93627 09/01/2015 ([id number]) 87622 EST. PATIENT, LEVEL IV Diagnosis: Epilepsy, unspecified, not intractable, without status epilepticus[ICD10: G40.909] Diagnosis: Essential (primary) hypertension[ICD10: I10] Diagnosis: First degree hemorrhoids[ICD10: K64.0] Diagnosis: Low back pain[ICD10: M54.5] Betty Salamanca MD, [facility] CPT-4: 99220 08/09/2015 ([id number]) 85610 EST. PATIENT, LEVEL IV Diagnosis: Essential (primary) hypertension[ICD10: I10] Diagnosis: Morbid (severe) obesity due to excess calories[ICD10: E66.01] Diagnosis: Epilepsy, unspecified, not intractable, without status epilepticus[ICD10: G40.909] Betty Salamanca MD, [facility] CPT-4: 82209 06/26/2015 ([id number]) 34722 EST. PATIENT, LEVEL IV Diagnosis: ESSENTIAL HYPERTENSION[ICD9: 401.9] Diagnosis: Small bowel obstruction[ICD9: 560.9] Diagnosis: Hospital discharge follow-up[ICD9: V67.59] Betty Salamanca MD [facility] CPT-4: 75573 11/18/2014 ([id number]) 81496 EST. PATIENT, LEVEL III Diagnosis: Diarrhea[ICD9: 787.91] Diagnosis: Abdominal pain[ICD9: 789.00] Betty Salamanca MD [facility] CPT-4: 73808 11/01/2014 ([id number]) 77443 EST. PATIENT, LEVEL III Diagnosis: ESSENTIAL HYPERTENSION[ICD9: 401.9] Diagnosis: Diarrhea[ICD9: 787.91] Leelee Salamanca MD, [facility] CPT-4: 56394 10/27/2014 ([id number]) 70991 EST. PATIENT, LEVEL IV Diagnosis: Factor V Leiden mutation[ICD9: 289.81] Diagnosis: Hx of deep venous thrombosis[ICD9: V12.51] Diagnosis: ESSENTIAL HYPERTENSION[ICD9: 401.9] Diagnosis: OBESITY[ICD9: 278.00] Betty Salamanca MD, [facility] CPT-4: 29183 2014 ([id number]) 46846 EST. PATIENT, LEVEL III Diagnosis: Hematuria[ICD9: 599.70] Diagnosis: LONG-TERM USE ANTICOAGUL[ICD9: V58.61] Leelee Salamanca MD, [facility] CPT-4: 75791 05/05/2014 ([id number]) 77258 EST. PATIENT, LEVEL IV Diagnosis: ESSENTIAL HYPERTENSION[ICD9: 401.9] Diagnosis: LONG-TERM USE ANTICOAGUL[ICD9: V58.61] Diagnosis: MORBID OBESITY[ICD9: 278.01] Diagnosis: Abscess and cellulitis[ICD9: 682.9] Betty Salamanca MD, [facility] CPT- 4: 78522 04/26/2014 ([id number]) OFFICE VISIT, NEW - LEVEL 4 Diagnosis: ESSENTIAL HYPERTENSION[ICD9: 401.9] Diagnosis: LONG-TERM USE ANTICOAGUL[ICD9: V58.61] [facility] CPT-4: 91932 03/29/2014 Plan of Care Planned Activity Notes Codes Status Date Visit Plan: Hypertension - well controlled - [...] not improve. 05/31/2016 Appointment: Leelee Weinstein WPtel: [facility] [phone] (30 min) Complex 05/31/2016 Patient Education: Patient Medication Summary Completed 05/31/2016 Patient Education: Obesity Completed 05/31/2016 Patient Education: Hypertension Completed 05/31/2016 Appointment: Leelee Weinstein WPtel: [address] [place], [place] [phone] (30 min) Complex 04/01/2016 Visit Plan: Hypertension [...] of plan. 03/29/2016 Appointment: Leelee Weinstein WPtel: [phone] (15 min) Moderate 03/29/2016 Patient Education: Patient Medication Summary Completed 03/29/2016 Patient Education: Hypertension Completed 03/29/2016 Visit Plan: Bilateral PE-hospital follow up-on xarelto-symptoms improving Ztlnm-uqyofivfwd-uubcsflb-continue symbicort twice daily as directed Hypertension - well controlled - continue with current medications, continue with no added salt diet. Pt has been encouraged to exercise daily.The pt has been advised to call the office if there are any acute concerns about change in blood pressure readings at home. 03/11/2016 Appointment: Leelee Weinstein WPtel: [phone] [phone] (30 min) Complex 03/11/2016 Patient [...] spray. 02/23/2016 Appointment: Elsie Mosquera WPtel: [phone] (15 min) Moderate 02/23/2016 Patient Education: Patient Medication Summary Completed 02/23/2016 Patient Education: Obesity Completed 02/23/2016 Visit Plan: Epilepsy - continue with phenytekwound improving 01/16/2016 Appointment: Betty Salamanca WPtel: [facility]9 [phone] (15 min) Moderate 01/16/2016 Patient Education: Patient [...] anti-epileptic 12/26/2015 Appointment: Betty Salamanca WPtel: [facility] (15 min) Moderate 12/26/2015 Patient Education: Patient [...] not resolve 11/20/2015 Appointment: Leelee Weinstein WPtel: [phone] (15 min) Moderate 11/20/2015 Patient Education: [...] in pain. 09/01/2015 Appointment: Leelee Weinstein WPtel: [phone] (30 min) Complex 09/01/2015 Patient Education: Patient Medication Summary Completed 09/01/2015 Referral: Ady Oswald WPtel:[phone] Referral Completed 08/30/2015 Visit Plan: Hypertension - [...] 08/09/2015 Care Plan: Referral Order SNOMED-CT : [id number] Pending 07/12/2015 Visit Plan: Hypertension - well [...] on flagyl. 11/01/2014 Appointment: Betty Salamanca WPtel: [address] [place] [phone] (15 min) Moderate 11/01/2014 Patient Education: Patient [...] monitor weight closely - 2014 App[facility]ment[phone] [facility] [facility] 2014 Patient Education: Patient Medication Summary Completed 2014 Patient Education: Hypertension Completed 2014 Care Plan: Referral Order SNOMED-CT : [id number] Ordered 2014 Visit Plan: Hematuria-per patient report-no [...] check. 04/26/2014 Appointment: [phone] [facility] Follow up 04/26/2014 Patient Education: Patient [...] 3.5. 03/29/2014 Appointment: [facility] [phone] [facility] New Patient 03/29/2014 Patient Education: Patient Medication Summary Completed 03/29/2014 Patient Education: Hypertension Completed 03/29/2014 Referral: Madhu Hall MD [address]Ptel[address] Referral Completed Referral: Ady Oswald WPtel:[phone] Referral Appointment Requested Instructions Comment . Hypertension [...] . Bilateral PE-hospital follow up-on xarelto-symptoms improving Gpizx-tbvrnkpapv-jxxecmal-continue symbicort twice daily as directed Hypertension - [...] if symptoms uncontrolled-patient verbalized understanding of plan. coumadin - when restarting - start on [...]
--- OUTSIDE RECORDS SUMMARY | 2018-09-06 06:16 | XMS REPORT | CCD ---
Author Author Betty Salamanca Organization [facility] Address [address] [place] [address] Phone Care Team Providers Care Agency Trainer Name Role Phone PP Unavailable CCM Unavailable Summary Purpose Interface Exchange Insurance Providers Payer name Policy type / Coverage type Covered republican ID Effective Begin Date Effective End Date Blue Cross Blue 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 [employer] 06/26/[address]: 648069463 Never smoker 06/26/[address]: 458486619 Never drinks alcohol 06/26/2015 Marital status Unknown [...] 477.0 ICD-10: J30.1 Active 11/19/2015 Unknown Other nursing home (current) drug therapy ICD-9: V58.69 ICD-10: [...] ICD-9: 477.0 ICD-10: J30.1 11/19/2015 Active Other nursing home (current) drug therapy ICD-9: V58.69 ICD-10: [...] Fill Instructions Phenytek 200 mg capsule RxNorm: 738759 TAKE TWO CAPSULES BY MOUTH DAILY WITH 300 MG CAPSULE TO EQUAL 700 MG TOTAL DAILY 09/03/2016 01/30/2017 Active Xarelto 20 mg tablet RxNorm: 0799967 TAKE ONE TABLET BY MOUTH DAILY 07/23/2016 10/20/2016 Active pantoprazole 40 mg tablet,delayed release RxNorm: 542806 TAKE ONE TABLET BY MOUTH TWICE A DAY AT 7 AM AND 9 PM 07/02/2016 12/28/2016 Active Xarelto 20 mg tablet RxNorm: 0054501 1 Tablet(s) PO daily 03/25/2016 07/22/2016 Inactive Symbicort 160 mcg-4.5 mcg/actuation HFA aerosol inhaler RxNorm: 5134913 2 Puff(s) INH BID 03/11/2016 No Stop Date Active Phenytek 200 mg capsule RxNorm: 404311 TAKE TWO CAPSULES BY MOUTH DAILY WITH 300 MG CAPSULE TO EQUAL 700 MG TOTAL DAILY 03/08/2016 09/02/2016 Inactive Ventolin HFA 90 mcg/actuation aerosol inhaler RxNorm: 325955 1 Puff(s) INH Q4-6H as needed 02/23/2016 No Stop Date Active prednisone 20 mg tablet RxNorm: 416379 2 Tablet(s) PO daily 02/23/2016 02/27/2016 Inactive Augmentin 875 mg-125 mg tablet RxNorm: 646943 1 Tablet(s) PO BID 02/23/2016 02/25/2016 Inactive nystatin 100,000 unit/gram topical powder RxNorm: 259301 1 Gram(s) TOP TID 01/16/2016 01/25/2016 Inactive Phenergan-Codeine 6.25 mg-10 mg/5 mL syrup RxNorm: 887844 5-10 Milliliter(s) PO Q6 as needed cough 12/01/2015 No Stop Date Active Zithromax 250 mg tablet RxNorm: 861398 1 Tablet(s) PO daily 11/23/2015 11/26/2015 Inactive Zithromax 250 mg tablet RxNorm: 382114 1 Tablet(s) PO daily 11/23/2015 11/22/2015 Inactive Zithromax Z-Kevin 250 mg tablet RxNorm: 854737 1 Tablet(s) PO UD 11/20/2015 11/24/2015 Inactive zpack Kenalog 40 mg/mL suspension for injection RxNorm: 8342940 1 Milliliter(s) Inj 11/20/2015 11/20/2015 Inactive Coumadin 4 mg tablet RxNorm: 601772 TAKE TWO TABLETS BY MOUTH EVERY EVENING FOR 3 DAYS, THEN TAKE TAKE ONE TABLET BY MOUTH EVERY EVENING THEREAFTER 11/20/2015 03/10/2016 Inactive hydrochlorothiazide 25 mg tablet RxNorm: 439042 TAKE ONE TABLET BY MOUTH DAILY 10/11/2015 03/10/2016 Inactive nystatin 100,000 unit/gram topical cream RxNorm: 548357 1 Gram(s) TOP BID 09/01/2015 No Stop Date Active Phenytek 300 mg capsule RxNorm: 803763 1 Capsule(s) PO daily take with two 200mg tablets to equal 700mg 09/01/2015 03/28/2016 Inactive triamcinolone acetonide 0.025 % topical ointment RxNorm: 8281578 1 Application TOP BID 09/01/2015 No Stop Date Active nystatin 100,000 unit/gram topical powder RxNorm: 190385 1 Application TOP 09/01/2015 09/01/2015 Inactive Anucort-HC 25 mg suppository RxNorm: 8446132 1 Suppository RTL BID x 1 week then as needed 08/09/2015 No Stop Date Active Phenytek 300 mg capsule RxNorm: 070003 1 Capsule(s) PO daily take with two 200mg tablets to equal 700mg 08/02/2015 08/31/2015 Inactive Phenytek 200 mg capsule RxNorm: 893488 Capsule(s) TAKE TWO CAPSULES BY MOUTH DAILY. TAKE WITH 300MG CAPSULE TO EQUAL 700MG TOTAL DAILY. 08/02/2015 02/27/2016 Inactive lorazepam 1 mg tablet RxNorm: 669864 1 Tablet(s) PO QID as needed seizure activity 06/26/2015 07/25/2015 Inactive Phenytek 200 mg capsule RxNorm: 653857 TAKE TWO CAPSULES BY MOUTH DAILY. TAKE WITH 300MG CAPSULE TO EQUAL 700MG TOTAL DAILY. 05/25/2015 07/23/2015 Inactive Phenytek 200 mg capsule RxNorm: 204715 TAKE TWO CAPSULES BY MOUTH DAILY. TAKE WITH 300MG CAPSULE TO EQUAL 700MG TOTAL DAILY. 05/03/2015 05/24/2015 Inactive hydrochlorothiazide 25 mg tablet RxNorm: 676574 TAKE ONE TABLET BY MOUTH DAILY 03/27/2015 09/22/2015 Inactive hydrochlorothiazide 25 mg tablet RxNorm: 882221 TAKE ONE TABLET BY MOUTH DAILY 03/27/2015 09/22/2015 Inactive Phenytek 300 mg capsule RxNorm: 104897 1 Capsule(s) PO daily take with 2 200mg tablets to equal 700mg 01/04/2015 08/01/2015 Inactive Coumadin 1 mg tablet RxNorm: 772594 TAKE 1 TABLET BY MOUTH DOCTOR DIRECTED 12/19/2014 03/18/2015 Inactive Coumadin 4 mg tablet RxNorm: 661846 1 Tablet(s) PO QPM when starting, pt to take 4mg two pills nightly x 3 nights then take one pill daily) 12/05/2014 06/25/2015 Inactive Phenytek 200 mg capsule RxNorm: 737229 TAKE TWO CAPSULES BY MOUTH DAILY. TAKE WITH 300MG CAPSULE TO EQUAL 700MG TOTAL DAILY. 11/08/2014 05/02/2015 Inactive metronidazole 500 mg tablet RxNorm: 439468 1 Tablet(s) PO TID 11/01/2014 11/10/2014 Inactive hydrochlorothiazide 25 mg tablet RxNorm: 144460 1 Tablet(s) PO daily 2014 03/26/2015 Inactive Coumadin 1 mg tablet RxNorm: 405332 TAKE 1 TABLET BY MOUTH DOCTOR DIRECTED 08/19/2014 10/31/2014 Inactive Coumadin 1 mg tablet RxNorm: 360962 1 Tablet(s) PO as doctor directed 07/21/2014 08/18/2014 Inactive Coumadin 1 mg tablet RxNorm: 026669 1 Tablet(s) PO as doctor directed 07/21/2014 07/20/2014 Inactive hydrochlorothiazide 12.5 mg tablet RxNorm: 390483 1 Tablet(s) PO daily 06/15/2014 08/28/2014 Inactive Coumadin 5 mg tablet RxNorm: 578570 1 Tablet(s) PO QPM 05/12/2014 10/31/2014 Inactive check lab in 2 weeks Bactrim DS 800 mg-160 mg tablet RxNorm: 283337 1 Tablet(s) PO BID 05/10/2014 05/09/2014 Inactive start after UA given to lab Bactrim DS 800 mg-160 mg tablet RxNorm: 915435 1 Tablet(s) PO BID 05/10/2014 05/16/2014 Inactive start after UA given to lab today Keflex 500 mg capsule RxNorm: 438298 1 Capsule(s) PO TID 04/26/2014 05/05/2014 Inactive Phenytek 300 mg capsule RxNorm: 397568 1 Capsule(s) PO daily 03/29/2014 03/28/2014 Inactive Phenytek 300 mg capsule RxNorm: 245113 1 Capsule(s) PO daily take with 2 200mg tablets to equal 700mg 03/29/2014 10/24/2014 Inactive Phenytek 200 mg capsule RxNorm: 325983 2 Capsule(s) PO daily take with a 300mg capsule to equal 700mg daily 03/29/2014 10/24/2014 Inactive Coumadin 4 mg tablet RxNorm: 802991 1 Tablet(s) PO QPM when starting, pt to take 4mg two pills nightly x 3 nights then take one pill daily) 03/29/2014 05/11/2014 Inactive hydrochlorothiazide 12.5 mg tablet RxNorm: 352222 1 Tablet(s) PO daily 03/29/2014 06/14/2014 Inactive Aspirin Low Dose 81 mg tablet,delayed release RxNorm: 214168 1 Tablet(s) PO daily No Start Date Active metoprolol succinate ER 25 mg tablet,extended release 24 hr RxNorm: 195980 1 Tablet(s) PO daily No Start Date Active Phenergan-Codeine 6.25 mg-10 mg/5 mL syrup RxNorm: 577251 5-10 Milliliter(s) PO Q6 as needed cough No Start Date 11/30/2015 Inactive pantoprazole 40 mg tablet,delayed release RxNorm: 822442 1 Tablet(s) PO daily No Start Date 07/01/2016 Inactive Xarelto 20 mg tablet RxNorm: 0986028 Tablet(s) PO No Start Date 03/24/2016 Inactive 15mg BID x 21 days then 20mg daily lorazepam 0.5 mg tablet RxNorm: 013435 1 Tablet(s) PO as doctor directed for seizures No Start Date 06/25/2015 Inactive Symbicort 160 mcg-4.5 mcg/actuation HFA aerosol inhaler RxNorm: 4777337 inhalation No Start Date 03/10/2016 Inactive Phenytek oral RxNorm: 985070 oral No Start Date 03/28/2014 Inactive aspirin 325 mg tablet,delayed release RxNorm: 511726 1 Tablet(s) PO QHS No Start Date 03/04/2016 Inactive Medication Administered Medication Codes Instructions Start Date Status Kenalog 40 mg/mL suspension for injection RxNorm: 8271185 1Milliliter 11/20/2015 No longer Active Immunizations Vaccine [...] unspecified ICD-10: J06.9 ICD-9: 465.9 11/20/2015 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 ICD-10: Z79.899 ICD-9: V58.69 [...] Result Date Cbc With Differential Ord2 WBC 7.66 K/ul 12/26/2015 Cbc With Differential Ord2 RBC 4.84 M/ul 12/26/2015 Cbc With Differential Ord2 HGB 16.6 g/dl 12/26/2015 Cbc With Differential Ord2 Neut% 67.2 % 12/26/2015 Cbc With Differential Ord2 HCT 48.1 % 12/26/2015 Cbc With Differential Ord2 Lymph% 22.3 % 12/26/2015 Cbc With Differential Ord2 MCV 99.4 fl 12/26/2015 Cbc With Differential Ord2 MCH 34.3 pg 12/26/2015 Cbc With Differential Ord2 Lenoir% 8.7 % 12/26/2015 Cbc With Differential Ord2 Eos% 1.4 % 12/26/2015 Cbc With Differential Ord2 MCHC 34.5 pg 12/26/2015 Cbc With Differential Ord2 PLT 165 K/ul 12/26/2015 Cbc With Differential Ord2 Baso% 0.4 % 12/26/2015 Cbc With Differential Ord2 Neut ABS# 5.14 K/ul 12/26/2015 Cbc With Differential Ord2 RDW 14.1 % 12/26/2015 Cbc With Differential Ord2 Lymph ABS# 1.71 K/ul 12/26/2015 Cbc With Differential Ord2 [place] ABS# 0.7 K/ul 12/26/2015 Cbc With Differential Ord2 Eos ABS# 0.1 K/ul 12/26/2015 Cbc With Differential Ord2 Baso ABS# 0.0 K/ul 12/26/2015 Tsh Ord6 hTSH II 2.81 uIU/mL 12/26/2015 Comp Metabolic Dsu168 NA 137 mEq/L 12/26/2015 Comp Metabolic Ceq088 K 4.3 mEq/L 12/26/2015 Comp Metabolic Xot128 CL 101 mEq/L 12/26/2015 Comp Metabolic Zbn060 CO2 27.0 mEq/L 12/26/2015 Comp Metabolic Dkk171 ANION GAP 13 12/26/2015 Comp Metabolic Rrg298 GLUCOSE 128 mg/dL 12/26/2015 Comp Metabolic Qqt852 Creat 0.8 mg/dL 12/26/2015 Comp Metabolic Aiu047 eGFR 104 ml/min/1.73m2 12/26/2015 Comp Metabolic Kno077 BUN 16 mg/dL 12/26/2015 Comp Metabolic Utq830 B/C Ratio 19.5 Ratio 12/26/2015 Comp Metabolic Vbf524 CALCIUM 9.2 mg/dL 12/26/2015 Comp Metabolic Dql698 ALK PHOS 107 U/L 12/26/2015 Comp Metabolic Tfa811 AST(SGOT) 15 U/L 12/26/2015 Comp Metabolic Gik580 ALT(SGPT) 15 U/L 12/26/2015 Comp Metabolic Zmy754 BILI T 0.4 mg/dL 12/26/2015 Comp Metabolic Mor890 ALBUMIN 4.0 g/dL 12/26/2015 Comp Metabolic Azp629 TPRO 7.6 g/dL 12/26/2015 Comp Metabolic Uax709 GLOB 3.6 g/dL 12/26/2015 Comp Metabolic Vgl581 A/G Ratio 1.1 Ratio 12/26/2015 Comp Metabolic Daf132 Osmo 277 mOsmo 12/26/2015 Dilantin Ord7 DILANTIN [...] clear 11/01/2014 None Full Exam - General 1995 Ears/Nose/Throat oral cavity/pharynx/larynx Overall: hypopharynx benign 11/01/2014 [...] General 1995 Ears/Nose/Throat lips/teeth/gingiva Overall: benign lips 04/26/2014 None [...] Codes Date TRIAMCINOLONE ACET INJ NOS CPT-4: [id number] 11/20/2015 Vital Signs Date Vital 05/31/2016 Blood Pressure 1: 126/78 Code: 8480-6 BMI: 46.3 Code: 98675-9 Heart Rate 1: 75 bpm Height: 5'11" SpO2: 96% Weight: 332 lbs 03/29/2016 Blood Pressure 1: 146/78 Code: 8480-6 Heart Rate 1: 78 bpm Height: 5'11" SpO2: 97% Weight: 03/11/2016 Blood Pressure 1: 136/86 Code: 8480-6 BMI: 44.4 Code: 96940-6 Heart Rate 1: 77 bpm Height: 5'11" SpO2: 96% Weight: 318 lbs 02/23/2016 Blood Pressure 1: 146/94 Code: 8480-6 BMI: 44.4 Code: 05439-8 Heart Rate 1: 90 bpm Height: 5'11" SpO2: 93% Weight: 318 lbs 01/16/2016 Blood Pressure 1: 140/86 Code: 8480-6 BMI: 44.6 Code: 43886-8 Heart Rate 1: 75 bpm Height: 5'11" SpO2: 96% Weight: 320 lbs 12/26/2015 Blood Pressure 1: 130/78 Code: 8480-6 BMI: 43.7 Code: 33799-3 Heart Rate 1: 96 bpm Height: 5'11" SpO2: 98% Weight: 313 lbs 11/20/2015 Blood Pressure 1: 137/92 Code: 8480-6 Heart Rate 1: 84 bpm Height: SpO2: 98% Temperature: 36.7 (C) / 98.0 (F) Weight: 09/01/2015 Blood Pressure 1: 148/88 Code: 8480-6 BMI: 43.8 Code: 99393-5 Heart Rate 1: 73 bpm Height: 5'11" SpO2: 97% Weight: 314 lbs 08/09/2015 Blood Pressure 1: 138/78 Code: 8480-6 BMI: 45.0 Code: 44937-4 Heart Rate 1: 75 bpm Height: 5'11" SpO2: 98% Weight: 323 lbs 06/26/2015 Blood Pressure 1: 134/80 Code: 8480-6 BMI: 46.3 Code: 66147-6 Heart Rate 1: 78 bpm Height: 5'11" SpO2: 96% Weight: 332 lbs 11/18/2014 Blood Pressure 1: 130/78 Code: 8480-6 BMI: 44.4 Code: 11977-8 Heart Rate 1: 66 bpm Height: 5'11" SpO2: 98% Weight: 318 lbs 11/01/2014 Blood Pressure 1: 130/78 Code: 8480-6 BMI: 44.5 Code: 71798-5 Heart Rate 1: 78 bpm Height: 5'11" SpO2: 97% Weight: 319 lbs 10/27/2014 Blood Pressure 1: 152/88 Code: 8480-6 BMI: 43.9 Code: 38774-5 Heart Rate 1: 91 bpm Height: 5'11" SpO2: 98% Weight: 315 lbs 2014 Blood Pressure 1: 140/82 Code: 8480-6 BMI: 44.9 Code: 70634-9 Heart Rate 1: 78 bpm Height: 5'11" Weight: 322 lbs 05/05/2014 Blood Pressure 1: 142/88 Code: 8480-6 BMI: 40.9 Code: 69593-8 Heart Rate 1: 64 bpm Height: 5'11" Temperature: 37.3 (C) / 99.1 (F) Weight: 293 lbs 04/26/2014 Blood Pressure 1: 142/82 Code: 8480-6 BMI: 40.2 Code: 81204-8 Heart Rate 1: 64 bpm Height: 5'11" Weight: 288 lbs 03/29/2014 Blood Pressure 1: 138/84 Code: 8480-6 BMI: 39.3 Code: 64671-7 Heart Rate 1: 84 bpm Height: 5'11" [...] data Encounters Encounter Performer Location Codes Date ([id number]) 95531 EST. PATIENT, LEVEL III Diagnosis: Essential (primary) hypertension[ICD10: I10] Diagnosis: Low back pain[ICD10: M54.5] Leelee Salamanca MD, [facility] CPT-4: 61219 05/31/2016 ([id number]) 13235 EST. PATIENT, LEVEL III Diagnosis: Essential (primary) hypertension[ICD10: I10] Diagnosis: Slow transit constipation[ICD10: K59.01] Leelee Salamanca MD, [facility] CPT-4: 99922 03/29/2016 [id number]) 21400 EST. 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 PATIENT, LEVEL III Diagnosis: Acute laryngopharyngitis[ICD10: J06.0] Diagnosis: Other allergic rhinitis[ICD10: J30.89] Diagnosis: Cough[ICD10: R05] Diagnosis: Wheezing[ICD10: R06.2] Elsie Salamanca MD, [facility] CPT-4: 46842 02/23/2016 ([id number]) 49948 EST. PATIENT, LEVEL III Diagnosis: Epilepsy, unspecified, not intractable, without status epilepticus[ICD10: G40.909] Betty Salamanca MD, [facility] CPT-4: 64340 01/16/2016 ([id number]) 80895 EST. PATIENT, LEVEL IV Diagnosis: Essential (primary) hypertension[ICD10: I10] Diagnosis: Morbid (severe) obesity due to excess calories[ICD10: E66.01] Diagnosis: Epilepsy, unspecified, not intractable, without status epilepticus[ICD10: G40.909] Betty Salamanca MD, [facility] CPT-4: 88108 12/26/2015 ([id number]) 52419 EST. PATIENT, LEVEL III Diagnosis: Allergic rhinitis due to pollen[ICD10: J30.1] Diagnosis: Acute upper respiratory infection, unspecified[ICD10: J06.9] Leelee Salamanca MD, [facility] CPT-4: 00375 11/20/2015 83659 EST. PATIENT, LEVEL IV Diagnosis: Other nursing home (current) drug therapy[ICD10: Z79.899] Diagnosis: Candidiasis of skin and nail[ICD10: B37.2] Elsie Salamanca MD, [facility] CPT-4: 62361 09/01/2015 ([id number]) 39854 EST. PATIENT, LEVEL IV Diagnosis: Epilepsy, unspecified, not intractable, without status epilepticus[ICD10: G40.909] Diagnosis: Essential (primary) hypertension[ICD10: I10] Diagnosis: First degree hemorrhoids[ICD10: K64.0] Diagnosis: Low back pain[ICD10: M54.5] Betty Salamanca MD, [facility] CPT-4: 56405 08/09/2015 ([id number]) 63374 EST. PATIENT, LEVEL IV Diagnosis: Essential (primary) hypertension[ICD10: I10] Diagnosis: Morbid (severe) obesity due to excess calories[ICD10: E66.01] Diagnosis: Epilepsy, unspecified, not intractable, without status epilepticus[ICD10: G40.909] Betty Salamanca MD, [facility] CPT-4: 57461 06/26/2015 ([id number]) 90165 EST. PATIENT, LEVEL IV Diagnosis: ESSENTIAL HYPERTENSION[ICD9: 401.9] Diagnosis: Small bowel obstruction[ICD9: 560.9] Diagnosis: Hospital discharge follow-up[ICD9: V67.59] Betty Salamanca MD, [facility] CPT-4: 03268 11/18/2014 ([id number]) 71031 EST. PATIENT, LEVEL III Diagnosis: Diarrhea[ICD9: 787.91] Diagnosis: Abdominal pain[ICD9: 789.00] Betty Salamanca MD, [facility] CPT-4: 65702 11/01/2014 ([id number]) 00914 EST. PATIENT, LEVEL III Diagnosis: ESSENTIAL HYPERTENSION[ICD9: 401.9] Diagnosis: Diarrhea[ICD9: 787.91] Leelee Salamanca MD, [facility] CPT-4: 04413 10/27/2014 ([id number]) 27037 EST. PATIENT, LEVEL IV Diagnosis: Factor V Leiden mutation[ICD9: 289.81] Diagnosis: Hx of deep venous thrombosis[ICD9: V12.51] Diagnosis: ESSENTIAL HYPERTENSION[ICD9: 401.9] Diagnosis: OBESITY[ICD9: 278.00] Betty Salamanca MD, [facility] CPT-4: 79839 2014 ([id number]) 40500 EST. PATIENT, LEVEL III Diagnosis: Hematuria[ICD9: 599.70] Diagnosis: LONG-TERM USE ANTICOAGUL[ICD9: V58.61] Leelee Salamanca MD, [facility] CPT-4: 19501 05/05/2014 ([id number]) 76916 EST. PATIENT, LEVEL IV Diagnosis: ESSENTIAL HYPERTENSION[ICD9: 401.9] Diagnosis: LONG-TERM USE ANTICOAGUL[ICD9: V58.61] Diagnosis: MORBID OBESITY[ICD9: 278.01] Diagnosis: Abscess and cellulitis[ICD9: 682.9] Betty Salamanca MD, [facility] CPT- 4: 11870 04/26/2014 ([id number]) OFFICE VISIT, NEW - LEVEL 4 Diagnosis: ESSENTIAL HYPERTENSION[ICD9: 401.9] Diagnosis: LONG-TERM USE ANTICOAGUL[ICD9: V58.61] Betty Salamanca MD, [facility] CPT-4: 49876 03/29/2014 Plan of Care Planned Activity Notes [...] not improve. 05/31/2016 Appointment: Leelee Weinstein WPtel: [address] [place] [address] (30 min) Complex 05/31/2016 Patient Education: Patient Medication Summary Completed 05/31/2016 Patient Education: Obesity Completed 05/31/2016 Patient Education: Hypertension Completed 05/31/2016 Appointment: Leelee Weinstein WPtel: [address] [place], [place] [phone] (30 min) Complex 04/01/2016 Visit Plan: Hypertension [...] plan. 03/29/2016 Appointment: Leelee Weinstein WPtel: [phone] [phone] (15 min) Moderate 03/29/2016 Patient Education: Patient Medication Summary Completed 03/29/2016 Patient Education: Hypertension Completed 03/29/2016 Visit Plan: Bilateral PE-hospital follow up-on xarelto-symptoms improving Johty-fpulldwzem-xjblxdnb-continue symbicort twice daily as directed Hypertension - well controlled - continue with current medications, continue with no added salt diet. Pt has been encouraged to exercise daily.The pt has been advised to call the office if there are any acute concerns about change in blood pressure readings at home. 03/11/2016 Appointment: Leelee Weinstein WPtel: [phone] [phone] (30 min) Complex 03/11/2016 Patient Education: [...] spray. 02/23/2016 Appointment: Elsie Mosquera WPtel: [phone] [phone] (15 min) Moderate 02/23/2016 Patient Education: Patient Medication Summary Completed 02/23/2016 Patient Education: Obesity Completed 02/23/2016 Visit Plan: Epilepsy - continue with phenytekwound improving 01/16/2016 Appointment: Betty Salamanca WPtel: [phone] [phone] (15 min) Moderate 01/16/2016 Patient Education: [...] anti-epileptic 12/26/2015 Appointment: Betty Salamanca WPtel: [phone] [facility] (15 min) Moderate 12/26/2015 Patient Education: Patient [...] resolve 11/20/2015 Appointment: Leelee Weinstein WPtel: [phone] [phone] [place] (15 min) Moderate 11/20/2015 Patient Education: [...] in pain. 09/01/2015 Appointment: [facility] Weinstein [facility]el[phone] (30 min) [facility] 09/01/2015 Patient Education: Patient Medication Summary Completed 09/01/2015 Referral: Ady Oswald WPtel:[phone] Referral Completed 08/30/2015 Visit Plan: Hypertension - [...] 08/09/2015 Care Plan: Referral Order SNOMED-CT : [id number] Pending 07/12/2015 Visit Plan: Hypertension - well [...] on flagyl. 11/01/2014 Appointment: Betty Salamanca WPtel[facility] (15 min) Moderate 11/01/2014 Patient Education: Patient [...] closely - 2014 Appointment: Betty Salamanca WPtel: [address] [place], [place] [phone] Follow up 2014 Patient Education: Patient Medication Summary Completed 2014 Patient Education: Hypertension Completed 2014 Care Plan: Referral Order SNOMED-CT : [id number] Ordered 2014 Visit Plan: Hematuria-per patient report-no [...] weight check. 04/26/2014 Appointment: Betty Salamanca WPtel: [address] [place], [place] [address] Follow up 04/26/2014 Patient Education: Patient Medication [...] and 3.5. 03/29/2014 Appointment: Betty Salamanca WPtel: [address] [place], [place] [phone] New Patient 03/29/2014 Patient Education: Patient Medication Summary Completed 03/29/2014 Patient Education: Hypertension Completed 03/29/2014 Referral: Madhu Hall MD WPtel: [address] Referral Completed Referral: Ady Oswald WPtel:[phone] Referral Appointment Requested Instructions Comment . Hypertension [...] . Bilateral PE-hospital follow up-on xarelto-symptoms improving Qxxvn-chfmiplqcg-dybknhzz-continue symbicort twice daily as directed Hypertension - [...]
--- OUTSIDE RECORDS SUMMARY | 2018-09-06 06:19 | XMS REPORT | CCD ---
Author Author [facility] Organization [facility] Address [address] [place] [address] Phone Care Team Providers Care Process Safety Engineer Name Role Phone PP Unavailable CCM Unavailable Summary Purpose Interface Exchange Insurance Providers Payer name Policy type / Coverage type Covered constitution party ID Effective Begin Date Effective End Date Blue Cross Blue Shield [facility] Blue Cross/Blue Shield [id number] Unknown Unknown Family history Father Diagnosis Age At Onset Coronary Artery Disease Unknown Mother Diagnosis Age At Onset Cancer Unknown Cancer Unknown Social History Social History Element Codes Description Effective Dates Number of children Unknown 0 06/26/2015 Employment Unknown 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 [employer] 06/26/[address]: 771234268 Never smoker 06/26/[address]: 435236423 Never drinks alcohol 06/26/2015 Marital status Unknown [...] 477.0 ICD-10: J30.1 Active 11/19/2015 Unknown 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 ICD-9: V58.69 ICD-10: Z79.899 [...] ICD-9: 477.0 ICD-10: J30.1 11/19/2015 Active Other fci (current) drug therapy ICD-9: V58.69 ICD-10: Z79.899 [...] Start Date Stop Date Status Fill Instructions Zyrtec 10 mg tablet RxNorm: 8842397 1 Tablet(s) PO daily 03/13/2018 07/10/2018 Active Zyrtec 10 mg tablet RxNorm: 1426632 1 Tablet(s) PO daily 02/12/2018 03/12/2018 Inactive Phenytek 200 mg capsule RxNorm: 392171 Capsule(s) TAKE TWO CAPSULES BY MOUTH DAILY WITH 300 MG CAPSULE TO EQUAL 700 MG TOTAL DAILY 01/28/2018 06/26/2018 Active MUST HAVE BRAND NAME MEDICATION Phenytek 300 mg capsule RxNorm: 973700 Capsule(s) TAKE ONE CAPSULE BY MOUTH DAILY WITH TWO 200 MG CAPS TO EQUAL 700 MG 01/28/2018 06/26/2018 Active MUST HAVE BRAND NAME MEDICATION Augmentin 875 mg-125 mg tablet RxNorm: 371641 1 Tablet(s) PO BID 01/28/2018 01/30/2018 Inactive prednisone 20 mg tablet RxNorm: 969174 2 Tablet(s) PO daily 01/28/2018 02/01/2018 Inactive Phenytek 300 mg capsule RxNorm: 748482 Capsule(s) TAKE ONE CAPSULE BY MOUTH DAILY WITH TWO 200 MG CAPS TO EQUAL 700 MG 01/22/2018 01/27/2018 Inactive Xarelto 20 mg tablet RxNorm: 3397936 TAKE ONE TABLET BY MOUTH DAILY 01/19/2018 07/17/2018 Active pantoprazole 40 mg tablet,delayed release RxNorm: 359286 TAKE ONE TABLET BY MOUTH TWICE A DAY AT 7AM AND 9PM 01/06/2018 07/04/2018 Active metoprolol succinate ER 25 mg tablet,extended release 24 hr RxNorm: 444754 Tablet(s) TAKE ONE TABLET BY MOUTH DAILY 12/11/2017 09/06/2018 Active Phenytek 200 mg capsule RxNorm: 727810 TAKE TWO CAPSULES BY MOUTH DAILY WITH 300 MG CAPSULE TO EQUAL 700 MG TOTAL DAILY 12/11/2017 01/27/2018 Inactive cefdinir 300 mg capsule RxNorm: 821558 1 Capsule(s) PO BID 11/14/2017 11/23/2017 Inactive cefdinir 300 mg capsule RxNorm: 329457 1 Capsule(s) PO BID 11/14/2017 11/13/2017 Inactive Phenergan with Codeine Syrup RxNorm: 5-10 Milliliter(s) PO QID as needed cough 11/11/2017 No Stop Date Active Zithromax Z-Kevin 250 mg tablet RxNorm: 114973 1 Tablet(s) PO UD 11/11/2017 No Stop Date Active prednisone 10 mg tablet RxNorm: 259623 Tablet(s) PO UD 11/11/2017 No Stop Date Active 6,5,4,3,2,1 Kenalog 40 mg/mL suspension for injection RxNorm: 0279765 1.5 Milliliter(s) Inj 11/11/2017 11/11/2017 Inactive metoprolol succinate ER 25 mg tablet,extended release 24 hr RxNorm: 796959 TAKE ONE TABLET BY MOUTH DAILY 09/15/2017 12/10/2017 Inactive Phenytek 300 mg capsule RxNorm: 346198 TAKE ONE CAPSULE BY MOUTH DAILY WITH TWO 200 MG CAPS TO EQUAL 700 MG 09/09/2017 01/21/2018 Inactive Phenytek 200 mg capsule RxNorm: 955830 TAKE TWO CAPSULES BY MOUTH DAILY WITH 300 MG CAPSULE TO EQUAL 700 MG TOTAL DAILY 08/26/2017 12/10/2017 Inactive pantoprazole 40 mg tablet,delayed release RxNorm: 361683 TAKE ONE TABLET BY MOUTH TWICE A DAY AT 7AM AND 9PM 08/11/2017 01/05/2018 Inactive Xarelto 20 mg tablet RxNorm: 5078703 Tablet(s) TAKE ONE TABLET BY MOUTH DAILY 06/25/2017 01/18/2018 Inactive metoprolol succinate ER 25 mg tablet,extended release 24 hr RxNorm: 271375 TAKE ONE TABLET BY MOUTH DAILY 06/20/2017 09/14/2017 Inactive Phenytek 200 mg capsule RxNorm: 430995 TAKE TWO CAPSULES BY MOUTH DAILY WITH 300 MG CAPSULE TO EQUAL 700 MG TOTAL DAILY 06/02/2017 08/25/2017 Inactive metoprolol succinate ER 25 mg tablet,extended release 24 hr RxNorm: 686879 TAKE ONE TABLET BY MOUTH DAILY 03/24/2017 06/19/2017 Inactive Phenytek 300 mg capsule RxNorm: 870808 TAKE ONE CAPSULE BY MOUTH DAILY WITH TWO 200 MG CAPS TO EQUAL 700 MG 03/12/2017 09/07/2017 Inactive Phenytek 200 mg capsule RxNorm: 068103 TAKE TWO CAPSULES BY MOUTH DAILY WITH 300 MG CAPSULE TO EQUAL 700 MG TOTAL DAILY 02/03/2017 06/01/2017 Inactive pantoprazole 40 mg tablet,delayed release RxNorm: 987262 TAKE ONE TABLET BY MOUTH TWICE A DAY AT 7AM AND 9PM 01/27/2017 07/25/2017 Inactive Ventolin HFA 90 mcg/actuation aerosol inhaler RxNorm: 014004 INHALE ONE PUFF BY MOUTH EVERY 4 TO 6 HOURS NEEDED 01/13/2017 03/19/2017 Inactive mupirocin 2 % topical ointment RxNorm: 264534 1 Application TOP BID 12/27/2016 01/05/2017 Inactive Xarelto 20 mg tablet RxNorm: 9619865 TAKE ONE TABLET BY MOUTH DAILY 11/28/2016 06/24/2017 Inactive Xarelto 20 mg tablet RxNorm: 5778280 TAKE ONE TABLET BY MOUTH DAILY 10/18/2016 11/27/2016 Inactive prednisone 10 mg tablet RxNorm: 333231 Tablet(s) PO UD 10/16/2016 10/21/2016 Inactive 6,5,4,3,2,1 prednisone 10 mg tablet RxNorm: 761020 Tablet(s) PO UD 10/16/2016 10/15/2016 Inactive 6,5,4,3,2,1 prednisone 20 mg tablet RxNorm: 227828 2 Tablet(s) PO daily 10/09/2016 10/13/2016 Inactive metoprolol succinate ER 25 mg tablet,extended release 24 hr RxNorm: 459706 TAKE ONE TABLET BY MOUTH DAILY 09/26/2016 03/23/2017 Inactive Phenytek 300 mg capsule RxNorm: 735038 TAKE ONE CAPSULE BY MOUTH DAILY WITH TWO 200 MG CAPS TO EQUAL 700 MG 09/17/2016 03/11/2017 Inactive Phenytek 200 mg capsule RxNorm: 958001 TAKE TWO CAPSULES BY MOUTH DAILY WITH 300 MG CAPSULE TO EQUAL 700 MG TOTAL DAILY 09/03/2016 01/30/2017 Inactive Xarelto 20 mg tablet RxNorm: 1673065 TAKE ONE TABLET BY MOUTH DAILY 07/23/2016 10/17/2016 Inactive pantoprazole 40 mg tablet,delayed release RxNorm: 288673 TAKE ONE TABLET BY MOUTH TWICE A DAY AT 7 AM AND 9 PM 07/02/2016 12/28/2016 Inactive Xarelto 20 mg tablet RxNorm: 2420383 1 Tablet(s) PO daily 03/25/2016 07/22/2016 Inactive Symbicort 160 mcg-4.5 mcg/actuation HFA aerosol inhaler RxNorm: 8976415 2 Puff(s) INH BID 03/11/2016 No Stop Date Active Phenytek 200 mg capsule RxNorm: 434213 TAKE TWO CAPSULES BY MOUTH DAILY WITH 300 MG CAPSULE TO EQUAL 700 MG TOTAL DAILY 03/08/2016 09/02/2016 Inactive prednisone 20 mg tablet RxNorm: 032243 2 Tablet(s) PO daily 02/23/2016 02/27/2016 Inactive Ventolin HFA 90 mcg/actuation aerosol inhaler RxNorm: 271484 1 Puff(s) INH Q4-6H as needed 02/23/2016 01/12/2017 Inactive Augmentin 875 mg-125 mg tablet RxNorm: 798953 1 Tablet(s) PO BID 02/23/2016 02/25/2016 Inactive nystatin 100,000 unit/gram topical powder RxNorm: 722272 1 Gram(s) TOP TID 01/16/2016 01/25/2016 Inactive Phenergan-Codeine 6.25 mg-10 mg/5 mL syrup RxNorm: 056805 5-10 Milliliter(s) PO Q6 as needed cough 12/01/2015 12/26/2016 Inactive Zithromax 250 mg tablet RxNorm: 607188 1 Tablet(s) PO daily 11/23/2015 11/26/2015 Inactive Zithromax 250 mg tablet RxNorm: 578008 1 Tablet(s) PO daily 11/23/2015 11/22/2015 Inactive Zithromax Z-Kevin 250 mg tablet RxNorm: 333724 1 Tablet(s) PO UD 11/20/2015 11/24/2015 Inactive zpaboy Kenalog 40 mg/mL suspension for injection RxNorm: 7806634 1 Milliliter(s) Inj 11/20/2015 11/20/2015 Inactive Coumadin 4 mg tablet RxNorm: 154974 TAKE TWO TABLETS BY MOUTH EVERY EVENING FOR 3 DAYS, THEN TAKE TAKE ONE TABLET BY MOUTH EVERY EVENING THEREAFTER 11/20/2015 03/10/2016 Inactive hydrochlorothiazide 25 mg tablet RxNorm: 434674 TAKE ONE TABLET BY MOUTH DAILY 10/11/2015 03/10/2016 Inactive triamcinolone acetonide 0.025 % topical ointment RxNorm: 1277820 1 Application TOP BID 09/01/2015 No Stop Date Active nystatin 100,000 unit/gram topical cream RxNorm: 673558 1 Gram(s) TOP BID 09/01/2015 09/08/2016 Inactive Phenytek 300 mg capsule RxNorm: 188775 1 Capsule(s) PO daily take with two 200mg tablets to equal 700mg 09/01/2015 03/28/2016 Inactive nystatin 100,000 unit/gram topical powder RxNorm: 680689 1 Application TOP 09/01/2015 09/01/2015 Inactive Anucort-HC 25 mg suppository RxNorm: 5002860 1 Suppository RTL BID x 1 week then as needed 08/09/2015 No Stop Date Active Phenytek 300 mg capsule RxNorm: 102247 1 Capsule(s) PO daily take with two 200mg tablets to equal 700mg 08/02/2015 08/31/2015 Inactive Phenytek 200 mg capsule RxNorm: 902594 Capsule(s) TAKE TWO CAPSULES BY MOUTH DAILY. TAKE WITH 300MG CAPSULE TO EQUAL 700MG TOTAL DAILY. 08/02/2015 02/27/2016 Inactive lorazepam 1 mg tablet RxNorm: 787828 1 Tablet(s) PO QID as needed seizure activity 06/26/2015 07/25/2015 Inactive Phenytek 200 mg capsule RxNorm: 374299 TAKE TWO CAPSULES BY MOUTH DAILY. TAKE WITH 300MG CAPSULE TO EQUAL 700MG TOTAL DAILY. 05/25/2015 07/23/2015 Inactive Phenytek 200 mg capsule RxNorm: 460459 TAKE TWO CAPSULES BY MOUTH DAILY. TAKE WITH 300MG CAPSULE TO EQUAL 700MG TOTAL DAILY. 05/03/2015 05/24/2015 Inactive hydrochlorothiazide 25 mg tablet RxNorm: 950399 TAKE ONE TABLET BY MOUTH DAILY 03/27/2015 09/22/2015 Inactive hydrochlorothiazide 25 mg tablet RxNorm: 827559 TAKE ONE TABLET BY MOUTH DAILY 03/27/2015 09/22/2015 Inactive Phenytek 300 mg capsule RxNorm: 495231 1 Capsule(s) PO daily take with 2 200mg tablets to equal 700mg 01/04/2015 08/01/2015 Inactive Coumadin 1 mg tablet RxNorm: 510009 TAKE 1 TABLET BY MOUTH DOCTOR DIRECTED 12/19/2014 03/18/2015 Inactive Coumadin 4 mg tablet RxNorm: 925992 1 Tablet(s) PO QPM when starting, pt to take 4mg two pills nightly x 3 nights then take one pill daily) 12/05/2014 06/25/2015 Inactive Phenytek 200 mg capsule RxNorm: 246134 TAKE TWO CAPSULES BY MOUTH DAILY. TAKE WITH 300MG CAPSULE TO EQUAL 700MG TOTAL DAILY. 11/08/2014 05/02/2015 Inactive metronidazole 500 mg tablet RxNorm: 389574 1 Tablet(s) PO TID 11/01/2014 11/10/2014 Inactive hydrochlorothiazide 25 mg tablet RxNorm: 715269 1 Tablet(s) PO daily 2014 03/26/2015 Inactive Coumadin 1 mg tablet RxNorm: 937176 TAKE 1 TABLET BY MOUTH DOCTOR DIRECTED 08/19/2014 10/31/2014 Inactive Coumadin 1 mg tablet RxNorm: 863294 1 Tablet(s) PO as doctor directed 07/21/2014 08/18/2014 Inactive Coumadin 1 mg tablet RxNorm: 285415 1 Tablet(s) PO as doctor directed 07/21/2014 07/20/2014 Inactive hydrochlorothiazide 12.5 mg tablet RxNorm: 846863 1 Tablet(s) PO daily 06/15/2014 08/28/2014 Inactive Coumadin 5 mg tablet RxNorm: 745726 1 Tablet(s) PO QPM 05/12/2014 10/31/2014 Inactive check lab in 2 weeks Bactrim DS 800 mg-160 mg tablet RxNorm: 864722 1 Tablet(s) PO BID 05/10/2014 05/09/2014 Inactive start after UA given to lab Bactrim DS 800 mg-160 mg tablet RxNorm: 149594 1 Tablet(s) PO BID 05/10/2014 05/16/2014 Inactive start after UA given to lab today Keflex 500 mg capsule RxNorm: 213138 1 Capsule(s) PO TID 04/26/2014 05/05/2014 Inactive Phenytek 300 mg capsule RxNorm: 539121 1 Capsule(s) PO daily 03/29/2014 03/28/2014 Inactive Phenytek 300 mg capsule RxNorm: 648877 1 Capsule(s) PO daily take with 2 200mg tablets to equal 700mg 03/29/2014 10/24/2014 Inactive Phenytek 200 mg capsule RxNorm: 240840 2 Capsule(s) PO daily take with a 300mg capsule to equal 700mg daily 03/29/2014 10/24/2014 Inactive Coumadin 4 mg tablet RxNorm: 003087 1 Tablet(s) PO QPM when starting, pt to take 4mg two pills nightly x 3 nights then take one pill daily) 03/29/2014 05/11/2014 Inactive hydrochlorothiazide 12.5 mg tablet RxNorm: 119271 1 Tablet(s) PO daily 03/29/2014 06/14/2014 Inactive Aspirin Low Dose 81 mg tablet,delayed release RxNorm: 044740 1 Tablet(s) PO daily No Start Date Active Phenergan-Codeine 6.25 mg-10 mg/5 mL syrup RxNorm: 290448 5-10 Milliliter(s) PO Q6 as needed cough No Start Date 11/30/2015 Inactive pantoprazole 40 mg tablet,delayed release RxNorm: 519726 1 Tablet(s) PO daily No Start Date 07/01/2016 Inactive Xarelto 20 mg tablet RxNorm: 3615300 Tablet(s) PO No Start Date 03/24/2016 Inactive 15mg BID x 21 days then 20mg daily lorazepam 0.5 mg tablet RxNorm: 290423 1 Tablet(s) PO as doctor directed for seizures No Start Date 06/25/2015 Inactive Symbicort 160 mcg-4.5 mcg/actuation HFA aerosol inhaler RxNorm: 5813062 inhalation No Start Date 03/10/2016 Inactive Phenytek oral RxNorm: 142424 oral No Start Date 03/28/2014 Inactive metoprolol succinate ER 25 mg tablet,extended release 24 hr RxNorm: 036257 1 Tablet(s) PO daily No Start Date 09/25/2016 Inactive aspirin 325 mg tablet,delayed release RxNorm: 835927 1 Tablet(s) PO QHS No Start Date 03/04/2016 Inactive Medication Administered Medication Codes Instructions Start Date Status Kenalog 40 mg/mL suspension for injection RxNorm: 2807908 1.5Milliliter 11/11/2017 No longer Active Kenalog 40 mg/mL suspension for injection RxNorm: 8319981 1Milliliter 11/20/2015 No longer Active Immunizations Vaccine [...] unspecified ICD-10: J06.9 ICD-9: 465.9 11/20/2015 Other fci (current) drug therapy ICD-10: Z79.899 ICD-9: V58.69 [...] Item Item Code Result Date Comp Metabolic Ubv756 NA 141 mEq/L 09/09/2016 Comp Metabolic Mbx605 K 3.8 mEq/L 09/09/2016 Comp Metabolic Duo781 CL 108 mEq/L 09/09/2016 Comp Metabolic Rkb156 CO2 24.0 mEq/L 09/09/2016 Comp Metabolic Gro422 ANION GAP 13 09/09/2016 Comp Metabolic Hbw119 GLUCOSE 134 mg/dL 09/09/2016 Comp Metabolic Ezu753 Creat 0.8 mg/dL 09/09/2016 Comp Metabolic Dcu531 eGFR 113 ml/min/1.73m2 09/09/2016 Comp Metabolic Qkm586 BUN 16 mg/dL 09/09/2016 Comp Metabolic Bki887 B/C Ratio 21.1 Ratio 09/09/2016 Comp Metabolic Dmb430 CALCIUM 8.8 mg/dL 09/09/2016 Comp Metabolic Cmu953 ALK PHOS 111 U/L 09/09/2016 Comp Metabolic Jre849 AST(SGOT) 16 U/L 09/09/2016 Comp Metabolic Nzv149 ALT(SGPT) 16 U/L 09/09/2016 Comp Metabolic Eiy275 BILI T 0.4 mg/dL 09/09/2016 Comp Metabolic Cdr764 ALBUMIN 3.8 g/dL 09/09/2016 Comp Metabolic Qti898 TPRO 7.0 g/dL 09/09/2016 Comp Metabolic Gto312 GLOB 3.2 g/dL 09/09/2016 Comp Metabolic Nxj506 A/G Ratio 1.2 Ratio 09/09/2016 Comp Metabolic Nky996 Osmo 284 mOsmo 09/09/2016 Cbc With Differential Ord2 WBC 6.45 K/ul 09/09/2016 Cbc With Differential Ord2 RBC 4.32 M/ul 09/09/2016 Cbc With Differential Ord2 HGB 14.1 g/dl 09/09/2016 Cbc With Differential Ord2 HCT 41.7 % 09/09/2016 Cbc With Differential Ord2 Neut% 59.4 % 09/09/2016 Cbc With Differential Ord2 Lymph% 28.4 % 09/09/2016 Cbc With Differential Ord2 MCV 96.5 fl 09/09/2016 Cbc With Differential Ord2 [place]% 10.2 % 09/09/2016 Cbc With Differential Ord2 [...] 1.83 K/ul 09/09/2016 Cbc With Differential Ord2 [place] ABS# 0.7 K/ul 09/09/2016 Cbc With Differential [...] 22.3 % 12/26/2015 Cbc With Differential Ord2 [place]% 8.7 % 12/26/2015 Cbc With Differential Ord2 MCH 34.3 pg 12/26/2015 Cbc With Differential Ord2 MCHC 34.5 pg 12/26/2015 Cbc With Differential Ord2 Eos% 1.4 % 12/26/2015 Cbc With Differential Ord2 Baso% 0.4 % 12/26/2015 Cbc With Differential Ord2 PLT 165 K/ul 12/26/2015 Cbc With Differential Ord2 Neut ABS# 5.14 K/ul 12/26/2015 Cbc With Differential Ord2 RDW 14.1 % 12/26/2015 Cbc With Differential Ord2 Lymph ABS# 1.71 K/ul 12/26/2015 Cbc With Differential Ord2 [place] ABS# 0.7 K/ul 12/26/2015 Cbc With Differential Ord2 Eos ABS# 0.1 K/ul 12/26/2015 Cbc With Differential Ord2 Baso ABS# 0.0 K/ul 12/26/2015 Tsh Ord6 hTSH II 2.81 uIU/mL 12/26/2015 Comp Metabolic Yoy948 NA 137 mEq/L 12/26/2015 Comp Metabolic Mbg340 K 4.3 mEq/L 12/26/2015 Comp Metabolic Gbf407 CL 101 mEq/L 12/26/2015 Comp Metabolic Nao609 CO2 27.0 mEq/L 12/26/2015 Comp Metabolic Wsv313 ANION GAP 13 12/26/2015 Comp Metabolic Gxr447 GLUCOSE 128 mg/dL 12/26/2015 Comp Metabolic Rez871 Creat 0.8 mg/dL 12/26/2015 Comp Metabolic Dpp971 eGFR 104 ml/min/1.73m2 12/26/2015 Comp Metabolic Jfu508 BUN 16 mg/dL 12/26/2015 Comp Metabolic Ifx247 B/C Ratio 19.5 Ratio 12/26/2015 Comp Metabolic Elv731 CALCIUM 9.2 mg/dL 12/26/2015 Comp Metabolic Nmm780 ALK PHOS 107 U/L 12/26/2015 Comp Metabolic Urg996 AST(SGOT) 15 U/L 12/26/2015 Comp Metabolic Cyu551 ALT(SGPT) 15 U/L 12/26/2015 Comp Metabolic Hlx085 BILI T 0.4 mg/dL 12/26/2015 Comp Metabolic Ctv126 ALBUMIN 4.0 g/dL 12/26/2015 Comp Metabolic Til009 TPRO 7.6 g/dL 12/26/2015 Comp Metabolic Hki210 GLOB 3.6 g/dL 12/26/2015 Comp Metabolic Bvo940 A/G Ratio 1.1 Ratio 12/26/2015 Comp Metabolic Mit458 Osmo 277 mOsmo 12/26/2015 Dilantin Ord7 DILANTIN [...] J3301 11/11/2017 OCCULT BLOOD FECES CPT- 4: 95476 10/28/2017 TRIAMCINOLONE ACET INJ NOS CPT-4: J3301 11/20/2015 Vital Signs Date Vital 02/12/2018 Blood Pressure 1: 134/80 Code: 8480-6 BMI: 48.7 Code: 97689-2 Heart Rate 1: 78 bpm Height: 5'11" SpO2: 96% Weight: 349 lbs 01/28/2018 Blood Pressure 1: 140/80 Code: 8480-6 BMI: 48.3 Code: 13283-0 Heart Rate 1: 78 bpm Height: 5'11" SpO2: 94% Temperature: 36.7 (C) / 98.1 (F) Weight: 346 lbs 11/11/2017 Blood Pressure 1: 144/82 Code: 8480-6 BMI: 47.1 Code: 16669-4 Heart Rate 1: 73 bpm Height: 5'11" SpO2: 94% Temperature: 36.9 (C) / 98.5 (F) Weight: 338 lbs 10/17/2017 Blood Pressure 1: 136/78 Code: 8480-6 BMI: 47.1 Code: 63565-6 Heart Rate 1: 82 bpm Height: 5'11" SpO2: 96% Weight: 338 lbs 06/06/2017 Blood Pressure 1: 138/76 Code: 8480-6 BMI: 47.4 Code: 29367-3 Heart Rate 1: 76 bpm Height: 5'11" SpO2: 96% Weight: 340 lbs 04/11/2017 Blood Pressure 1: 142/80 Code: 8480-6 Heart Rate 1: 79 bpm Height: 5'11" SpO2: 96% 01/27/2017 Blood Pressure 1: 146/86 Code: 8480-6 BMI: 47.1 Code: 64744-4 Heart Rate 1: 97 bpm Height: 5'11" SpO2: 95% Weight: 338 lbs 12/27/2016 Blood Pressure 1: 154/74 Code: 8480-6 BMI: 48.5 Code: 19471-7 Heart Rate 1: 82 bpm Height: 5'11" SpO2: 96% Weight: 348 lbs 10/09/2016 Blood Pressure 1: 160/82 Code: 8480-6 BMI: 47.4 Code: 05722-2 Heart Rate 1: 77 bpm Height: 5'11" SpO2: 96% Weight: 340 lbs 09/09/2016 Blood Pressure 1: 140/80 Code: 8480-6 Heart Rate 1: 88 bpm Height: 5'11" SpO2: 96% Weight: 05/31/2016 Blood Pressure 1: 126/78 Code: 8480-6 BMI: 46.3 Code: 13151-8 Heart Rate 1: 75 bpm Height: 5'11" SpO2: 96% Weight: 332 lbs 03/29/2016 Blood Pressure 1: 146/78 Code: 8480-6 Heart Rate 1: 78 bpm Height: 5'11" SpO2: 97% Weight: 03/11/2016 Blood Pressure 1: 136/86 Code: 8480-6 BMI: 44.4 Code: 01492-5 Heart Rate 1: 77 bpm Height: 5'11" SpO2: 96% Weight: 318 lbs 02/23/2016 Blood Pressure 1: 146/94 Code: 8480-6 BMI: 44.4 Code: 48114-7 Heart Rate 1: 90 bpm Height: 5'11" SpO2: 93% Weight: 318 lbs 01/16/2016 Blood Pressure 1: 140/86 Code: 8480-6 BMI: 44.6 Code: 49863-7 Heart Rate 1: 75 bpm Height: 5'11" SpO2: 96% Weight: 320 lbs 12/26/2015 Blood Pressure 1: 130/78 Code: 8480-6 BMI: 43.7 Code: 57709-4 Heart Rate 1: 96 bpm Height: 5'11" SpO2: 98% Weight: 313 lbs 11/20/2015 Blood Pressure 1: 137/92 Code: 8480-6 Heart Rate 1: 84 bpm Height: SpO2: 98% Temperature: 36.7 (C) / 98.0 (F) Weight: 09/01/2015 Blood Pressure 1: 148/88 Code: 8480-6 BMI: 43.8 Code: 52067-7 Heart Rate 1: 73 bpm Height: 5'11" SpO2: 97% Weight: 314 lbs 08/09/2015 Blood Pressure 1: 138/78 Code: 8480-6 BMI: 45.0 Code: 67386-7 Heart Rate 1: 75 bpm Height: 5'11" SpO2: 98% Weight: 323 lbs 06/26/2015 Blood Pressure 1: 134/80 Code: 8480-6 BMI: 46.3 Code: 02577-2 Heart Rate 1: 78 bpm Height: 5'11" SpO2: 96% Weight: 332 lbs 11/18/2014 Blood Pressure 1: 130/78 Code: 8480-6 BMI: 44.4 Code: 10102-3 Heart Rate 1: 66 bpm Height: 5'11" SpO2: 98% Weight: 318 lbs 11/01/2014 Blood Pressure 1: 130/78 Code: 8480-6 BMI: 44.5 Code: 67720-1 Heart Rate 1: 78 bpm Height: 5'11" SpO2: 97% Weight: 319 lbs 10/27/2014 Blood Pressure 1: 152/88 Code: 8480-6 BMI: 43.9 Code: 85301-4 Heart Rate 1: 91 bpm Height: 5'11" SpO2: 98% Weight: 315 lbs 2014 Blood Pressure 1: 140/82 Code: 8480-6 BMI: 44.9 Code: 08300-8 Heart Rate 1: 78 bpm Height: 5'11" Weight: 322 lbs 05/05/2014 Blood Pressure 1: 142/88 Code: 8480-6 BMI: 40.9 Code: 03611-5 Heart Rate 1: 64 bpm Height: 5'11" Temperature: 37.3 (C) / 99.1 (F) Weight: 293 lbs 04/26/2014 Blood Pressure 1: 142/82 Code: 8480-6 BMI: 40.2 Code: 43976-2 Heart Rate 1: 64 bpm Height: 5'11" Weight: 288 lbs 03/29/2014 Blood Pressure 1: 138/84 Code: 8480-6 BMI: 39.3 Code: 47984-6 Heart Rate 1: 84 bpm Height: 5'11" [...] Other allergic rhinitis[ICD10: J30.89] [facility] CPT- 4: 69992 02/12/2018 [id number] EST. PATIENT, LEVEL III Diagnosis: Acute laryngopharyngitis[ICD10: J06.0] Diagnosis: Other allergic rhinitis[ICD10: J30.89] Diagnosis: Encounter for therapeutic drug level monitoring[ICD10: Z51.81] Elsie Salamanca MD, [facility] CPT-4: 06001 01/28/2018 [id number] EST. PATIENT, LEVEL III Diagnosis: Other acute sinusitis[ICD10: J01.80] Diagnosis: Other allergic rhinitis[ICD10: J30.89] Diagnosis: Cough[ICD10: R05] Elsie Salamanca MD, [facility] CPT-4: 51081 11/11/2017 44784 EST. PATIENT, LEVEL IV Diagnosis: Essential (primary) hypertension[ICD10: I10] Diagnosis: Epilepsy, unspecified, not intractable, without status epilepticus[ICD10: G40.909] Elsie Salamanca MD, [facility] CPT-4: 16733 10/17/2017 69025 EST. PATIENT, LEVEL IV Diagnosis: Essential (primary) hypertension[ICD10: I10] Diagnosis: Epilepsy, unspecified, not intractable, without status epilepticus[ICD10: G40.909] Elsie Salamanca MD, [facility] CPT-4: 05851 06/06/2017 55501 EST. PATIENT, LEVEL IV Diagnosis: Essential (primary) hypertension[ICD10: I10] Diagnosis: Epilepsy, unspecified, not intractable, without status epilepticus[ICD10: G40.909] Elsie Salamanca MD, [facility] CPT-4: 88433 04/11/2017 ([id number]) 77972 EST. PATIENT, LEVEL III Diagnosis: Essential (primary) hypertension[ICD10: I10] Diagnosis: Epilepsy, unspecified, not intractable, without status epilepticus[ICD10: G40.909] Leelee Salamanca MD, [facility] CPT-4: 15043 01/27/2017 ([id number]) 08790 EST. PATIENT, LEVEL IV Diagnosis: Essential (primary) hypertension[ICD10: I10] Diagnosis: Epilepsy, unspecified, not intractable, without status epilepticus[ICD10: G40.909] Diagnosis: Pain in right wrist[ICD10: M25.531] Leelee Salamanca MD, [facility] CPT-4: 11718 12/27/2016 44509 EST. PATIENT, LEVEL III Diagnosis: Rash and other nonspecific skin eruption[ICD10: R21] Elsie Salamanca MD, [facility] CPT-4: 45981 10/09/2016 ([id number]) 85240 EST. PATIENT, LEVEL III Diagnosis: Carpal tunnel syndrome, right upper limb[ICD10: G56.01] Diagnosis: Olecranon bursitis, right elbow[ICD10: M70.21] Betty Salamanca MD, [facility] CPT-4: 32933 09/09/2016 ([id number]) 14945 EST. PATIENT, LEVEL III Diagnosis: Essential (primary) hypertension[ICD10: I10] Diagnosis: Low back pain[ICD10: M54.5] Leelee Salamanca MD, [facility] CPT-4: 99067 05/31/2016 ([id number]) 20545 EST. PATIENT, LEVEL III Diagnosis: Essential (primary) hypertension[ICD10: I10] Diagnosis: Slow transit constipation[ICD10: K59.01] Leelee Salamanca MD, [facility] CPT-4: 26477 03/29/2016 ([id number]) 84581 EST. 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 PATIENT, LEVEL III Diagnosis: Acute laryngopharyngitis[ICD10: J06.0] Diagnosis: Other allergic rhinitis[ICD10: J30.89] Diagnosis: Cough[ICD10: R05] Diagnosis: Wheezing[ICD10: R06.2] Elsie Salamanca MD, [facility] CPT-4: 62332 02/23/2016 ([id number]) [id number] EST. PATIENT, LEVEL III Diagnosis: Epilepsy, unspecified, not intractable, without status epilepticus[ICD10: G40.909] Betty Salamanca MD, [facility] CPT-4: 01649 01/16/2016 ([id number]) [id number] EST. PATIENT, LEVEL IV Diagnosis: Essential (primary) hypertension[ICD10: I10] Diagnosis: Morbid (severe) obesity due to excess calories[ICD10: E66.01] Diagnosis: Epilepsy, unspecified, not intractable, without status epilepticus[ICD10: G40.909] Betty Salamanca MD, [facility] CPT-4: 37334 12/26/2015 ([id number]) [id number] EST. PATIENT, LEVEL III Diagnosis: Allergic rhinitis due to pollen[ICD10: J30.1] Diagnosis: Acute upper respiratory infection, unspecified[ICD10: J06.9] Leelee Js Salamanca MD, [facility] CPT-4: 96499 11/20/2015 24318 EST. PATIENT, LEVEL IV Diagnosis: Other fci (current) drug therapy[ICD10: Z79.899] Diagnosis: Candidiasis of skin and nail[ICD10: B37.2] Elsie Salamanca MD, [facility] CPT-4: 32293 09/01/2015 ([id number]) 16871 EST. PATIENT, LEVEL IV Diagnosis: Epilepsy, unspecified, not intractable, without status epilepticus[ICD10: G40.909] Diagnosis: Essential (primary) hypertension[ICD10: I10] Diagnosis: First degree hemorrhoids[ICD10: K64.0] Diagnosis: Low back pain[ICD10: M54.5] Betty Salamanca MD, [facility] CPT-4: 70667 08/09/2015 ([id number]) 47729 EST. PATIENT, LEVEL IV Diagnosis: Essential (primary) hypertension[ICD10: I10] Diagnosis: Morbid (severe) obesity due to excess calories[ICD10: E66.01] Diagnosis: Epilepsy, unspecified, not intractable, without status epilepticus[ICD10: G40.909] Betty Salamanca MD [facility] CPT-4: 58581 06/26/2015 ([id number]) 98553 EST. PATIENT, LEVEL IV Diagnosis: ESSENTIAL HYPERTENSION[ICD9: 401.9] Diagnosis: Small bowel obstruction[ICD9: 560.9] Diagnosis: Hospital discharge follow-up[ICD9: V67.59] Betty Salamanca MD, [facility] CPT-4: 53699 11/18/2014 ([id number]) 84270 EST. PATIENT, LEVEL III Diagnosis: Diarrhea[ICD9: 787.91] Diagnosis: Abdominal pain[ICD9: 789.00] Betty Salamanca MD, [facility] CPT-4: 03413 11/01/2014 ([id number]) 73745 EST. PATIENT, LEVEL III Diagnosis: ESSENTIAL HYPERTENSION[ICD9: 401.9] Diagnosis: Diarrhea[ICD9: 787.91] Leelee Salamanca MD [facility] CPT-4: 89890 10/27/2014 ([id number]) 70688 EST. PATIENT, LEVEL IV Diagnosis: Factor V Leiden mutation[ICD9: 289.81] Diagnosis: Hx of deep venous thrombosis[ICD9: V12.51] Diagnosis: ESSENTIAL HYPERTENSION[ICD9: 401.9] Diagnosis: OBESITY[ICD9: 278.00] Betty Salamanca MD, [facility] CPT-4: 39752 2014 ([id number]) 33456 EST. PATIENT, LEVEL III Diagnosis: Hematuria[ICD9: 599.70] Diagnosis: LONG-TERM USE ANTICOAGUL[ICD9: V58.61] Leelee Salamanca MD [facility] CPT-4: 59641 05/05/2014 ([id number]) 40714 EST. PATIENT, LEVEL IV Diagnosis: ESSENTIAL HYPERTENSION[ICD9: 401.9] Diagnosis: LONG-TERM USE ANTICOAGUL[ICD9: V58.61] Diagnosis: MORBID OBESITY[ICD9: 278.01] Diagnosis: Abscess and cellulitis[ICD9: 682.9] Betty Salamanca MD, [facility] CPT- 4: 90195 04/26/2014 ([id number]) OFFICE VISIT, NEW - LEVEL 4 Diagnosis: ESSENTIAL HYPERTENSION[ICD9: 401.9] Diagnosis: LONG-TERM USE ANTICOAGUL[ICD9: V58.61] Betty Salamanca MD, [facility] CPT-4: 58005 03/29/2014 Plan of Care Planned Activity Notes [...] allergy spray. 02/12/2018 Appointment: Elsie Mosquera WPtel: [address] [place] [address] (15 min) Moderate 02/12/2018 Patient Education: Patient [...] allergy spray. 01/28/2018 Appointment: Elsie Mosquera WPtel: [address] [place] [address] (15 min) Moderate 01/28/2018 Patient Education: Patient [...] allergy spray. 11/11/2017 Appointment: Elsie Mosquera WPtel[facility] (15 min) Moderate 11/11/2017 Patient Education: Patient [...] weight check. 10/17/2017 Appointment: Elsie Mosquera WPtel: [facility] (15 min) Moderate 10/17/2017 Patient Education: Patient Medication Summary Completed 10/17/2017 Appointment: Elsie Mosquera WPtel: [address] [place], [place] [phone] (15 min) Moderate 10/07/2017 Care Plan: BMI Above normal followup SELF-MGMT EDUC & TRAIN 1 PT Pending 06/09/2017 Visit Plan: Hypertension - improved - continue with current medications, continue with no added salt diet. Pt has been encouraged to exercise daily. The pt has been advised to call the office if there are any [place] concerns about change in blood pressure readings at home. Epilepsy- controlled, no changes, continue to monitor Obesity - chronic issue with this patient. The pt has been counseled about diet changes, calorie restriction, and need to exercise. Pt will RTC in one month for weight check. 06/06/2017 Appointment: Elsie Mosquera WPtel: [address] [place], [place] [phone] (30 min) Complex 06/06/2017 Patient Education: Patient [...] the office if there are any [place] concerns about change in blood pressure readings at home. Epilepsy- controlled, no changes, continue to monitor Obesity - chronic issue with this patient. The pt has been counseled about diet changes, calorie restriction, and need to exercise. Pt will RTC in one month for weight check. 04/11/2017 Appointment: Elsie Mosquera WPtel: [address] [place], [place] [phone] [place] (30 min) Complex 04/11/2017 Patient Education: Patient Medication Summary Completed 04/11/2017 Patient Education: Obesity Completed 04/11/2017 Appointment: Elsie Mosquera WPtel: [address] [place], [place] [phone] (30 min) Complex 04/01/2017 Visit Plan: Hypertension - improved - continue with current medications, continue with no added salt diet. Pt has been encouraged to exercise daily. The pt has been advised to call the office if there are any [place] concerns about change in blood pressure readings at home. Obesity-lost 10#- continue diet/exercise Epilepsy-check dilantin level 01/27/2017 Appointment: Leelee Weinstein WPtel: [phone] [phone] (30 min) Complex 01/27/2017 Patient Education: Patient [...] Dr Ordaz 12/27/2016 Appointment: Leelee Weinstein WPtel: [phone] (30 min) Complex 12/27/2016 Patient Education: Patient Medication Summary Completed 12/27/2016 Care Plan: Referral Order SNOMED-CT : [id number] Pending 12/27/2016 Visit Plan: Rash - pt [...] Obesity Completed 10/09/2016 Appointment: Leelee Weinstein WPtel: [phone] (30 min) Complex 10/04/2016 Visit Plan: on the rash on your foot, use benadryl cream mixed with cortisone cream - use a jerica size portion of both Carpal tunnel -wear a carpal tunnel brace at night and a tennis elbow brace during the day use aspercreme on your elbow and wrist at least twice a day 09/09/2016 Appointment: Betty Salamanca WPtel: [facility] (15 min) Moderate 09/09/2016 Patient Education: [...] not improve. 05/31/2016 Appointment: Leelee Weinstein WPtel: [phone] (30 min) Complex 05/31/2016 Patient Education: Patient Medication Summary Completed 05/31/2016 Patient Education: Obesity Completed 05/31/2016 Patient Education: Hypertension Completed 05/31/2016 Appointment: Leelee Weinstein WPtel: [phone] (30 min) Complex 04/01/2016 Visit Plan: [...] of plan. 03/29/2016 Appointment: Leelee Weinstein WPtel: [phone] (15 min) Moderate 03/29/2016 Patient Education: Patient Medication Summary Completed 03/29/2016 Patient Education: Hypertension Completed 03/29/2016 Visit Plan: Bilateral PE-hospital follow up-on xarelto-symptoms improving Yferl-boxrritscy-xmqbqxfh-continue symbicort twice daily as directed Hypertension - well controlled - continue with current medications, continue with no added salt diet. Pt has been encouraged to exercise daily. The pt has been advised to call the office if there are any acute concerns about change in blood pressure readings at home. 03/11/2016 Appointment: Leelee Weinstein WPtel: [phone] (30 min) Complex 03/11/2016 Patient Education: Patient [...] allergy spray. 02/23/2016 Appointment: Elsie Mosquera WPtel: [facility] (15 min) Moderate 02/23/2016 Patient Education: Patient Medication Summary Completed 02/23/2016 Patient Education: Obesity Completed 02/23/2016 Visit Plan: Epilepsy - continue with phenytek wound improving 01/16/2016 Appointment: Betty Salamanca WPtel: [address] [place], [place] [phone] (15 min) Moderate 01/16/2016 Patient Education: Patient [...] current anti-epileptic 12/26/2015 Appointment: Betty Salamanca WPtel: [phone] [facility] (15 min) Moderate 12/26/2015 Patient Education: Patient [...] not resolve 11/20/2015 Appointment: Leelee Weinstein WPtel: [phone] [phone] [place] (15 min) Moderate 11/20/2015 Patient Education: [...] in pain. 09/01/2015 Appointment: Leelee Weinstein WPtel: [phone] (30 min) [facility] 09/01/2015 Patient Education: Patient Medication Summary Completed 09/01/2015 Referral: Ady Oswald WPtel:[phone] Referral Completed 08/30/2015 Visit Plan: Hypertension - [...] 08/09/2015 Care Plan: Referral Order SNOMED-CT : [id number] Pending 07/12/2015 Visit Plan: Hypertension - well [...] on flagyl. 11/01/2014 Appointment: Betty Salamanca WPtel: [address] [place], [place] [address] (15 min) Moderate 11/01/2014 Patient Education: Patient [...] closely - 2014 Appointment: Betty Salamanca WPtel: [facility] Follow up 2014 Patient Education: Patient Medication Summary Completed 2014 Patient Education: Hypertension Completed 2014 Care Plan: Referral Order SNOMED-CT : [id number] Ordered 2014 Visit Plan: Hematuria-per patient report-no [...] weight check. 04/26/2014 Appointment: Betty Salamanca WPtel: [facility] Follow up 04/26/2014 Patient Education: Patient [...] 3.5. 03/29/2014 Appointment: Betty Salamanca [facility]Ptel[facility] [phone] [facility] New Patient 03/29/2014 Patient Education: Patient Medication Summary Completed 03/29/2014 Patient Education: Hypertension Completed 03/29/2014 Referral: Madhu Hall MD WPtel: [address] Referral Completed Referral: Edilson Ordaz [facility] [place] Referral Appointment Requested Referral: Ady Oswald WPtel:[phone] Referral Appointment Requested Instructions Comment . Hypertension [...] . Bilateral PE-hospital follow up-on xarelto-symptoms improving Hkbkx-bbwygfhgba-ljqspvpj-continue symbicort twice daily as directed Hypertension - [...] [facility] W[facility]ST [...]
--- OUTSIDE RECORDS SUMMARY | 2018-09-06 06:23 | XMS REPORT | CCD ---
Author Author [facility] Organization [facility] Address [address] [place] [address] Phone Care Team Providers Care Client Services Manager Name Role Phone PP Unavailable CCM Unavailable Summary Purpose Interface Exchange Insurance Providers Payer name Policy type / Coverage type Covered democrat ID Effective Begin Date Effective End Date Blue Cross Blue [facility] Blue Cross/Blue Shield [id number] Unknown Unknown Family history Father Diagnosis Age At Onset Coronary Artery Disease Unknown Mother Diagnosis Age At Onset Cancer Unknown Cancer Unknown Social History Social History Element Codes Description Effective Dates Number of children Unknown 0 06/26/2015 Employment Unknown 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 [employer] 06/26/[address]: 965507979 Never smoker 06/26/[address]: 448398423 Never drinks alcohol 06/26/2015 Marital status Unknown [...] 477.0 ICD-10: J30.1 Active 11/19/2015 Unknown Other superintendent container terminal (current) drug therapy ICD-9: V58.69 ICD-10: Z79.899 [...] ICD-9: 477.0 ICD-10: J30.1 11/19/2015 Active Other alf (current) drug therapy ICD-9: V58.69 ICD-10: Z79.899 [...] Fill Instructions Zyrtec 10 mg tablet RxNorm: 6530560 1 Tablet(s) PO daily 02/12/2018 03/13/2018 Active Phenytek 200 mg capsule RxNorm: 597721 Capsule(s) TAKE TWO CAPSULES BY MOUTH DAILY WITH 300 MG CAPSULE TO EQUAL 700 MG TOTAL DAILY 01/28/2018 06/26/2018 Active MUST HAVE BRAND NAME MEDICATION Phenytek 300 mg capsule RxNorm: 344131 Capsule(s) TAKE ONE CAPSULE BY MOUTH DAILY WITH TWO 200 MG CAPS TO EQUAL 700 MG 01/28/2018 06/26/2018 Active MUST HAVE BRAND NAME MEDICATION Augmentin 875 mg-125 mg tablet RxNorm: 095365 1 Tablet(s) PO BID 01/28/2018 01/30/2018 Inactive prednisone 20 mg tablet RxNorm: 187881 2 Tablet(s) PO daily 01/28/2018 02/01/2018 Inactive Phenytek 300 mg capsule RxNorm: 318320 Capsule(s) TAKE ONE CAPSULE BY MOUTH DAILY WITH TWO 200 MG CAPS TO EQUAL 700 MG 01/22/2018 01/27/2018 Inactive Xarelto 20 mg tablet RxNorm: 9186380 TAKE ONE TABLET BY MOUTH DAILY 01/19/2018 07/17/2018 Active pantoprazole 40 mg tablet,delayed release RxNorm: 528063 TAKE ONE TABLET BY MOUTH TWICE A DAY AT 7AM AND 9PM 01/06/2018 07/04/2018 Active metoprolol succinate ER 25 mg tablet,extended release 24 hr RxNorm: 540582 Tablet(s) TAKE ONE TABLET BY MOUTH DAILY 12/11/2017 09/06/2018 Active Phenytek 200 mg capsule RxNorm: 697431 TAKE TWO CAPSULES BY MOUTH DAILY WITH 300 MG CAPSULE TO EQUAL 700 MG TOTAL DAILY 12/11/2017 01/27/2018 Inactive cefdinir 300 mg capsule RxNorm: 365187 1 Capsule(s) PO BID 11/14/2017 11/23/2017 Inactive cefdinir 300 mg capsule RxNorm: 677239 1 Capsule(s) PO BID 11/14/2017 11/13/2017 Inactive Phenergan with Codeine Syrup RxNorm: 5-10 Milliliter(s) PO QID as needed cough 11/11/2017 No Stop Date Active Zithromax Z-Kevin 250 mg tablet RxNorm: 261739 1 Tablet(s) PO UD 11/11/2017 No Stop Date Active prednisone 10 mg tablet RxNorm: 928132 Tablet(s) PO UD 11/11/2017 No Stop Date Active 6,5,4,3,2,1 Kenalog 40 mg/mL suspension for injection RxNorm: 0121194 1.5 Milliliter(s) Inj 11/11/2017 11/11/2017 Inactive metoprolol succinate ER 25 mg tablet,extended release 24 hr RxNorm: 372235 TAKE ONE TABLET BY MOUTH DAILY 09/15/2017 12/10/2017 Inactive Phenytek 300 mg capsule RxNorm: 330978 TAKE ONE CAPSULE BY MOUTH DAILY WITH TWO 200 MG CAPS TO EQUAL 700 MG 09/09/2017 01/21/2018 Inactive Phenytek 200 mg capsule RxNorm: 832756 TAKE TWO CAPSULES BY MOUTH DAILY WITH 300 MG CAPSULE TO EQUAL 700 MG TOTAL DAILY 08/26/2017 12/10/2017 Inactive pantoprazole 40 mg tablet,delayed release RxNorm: 338787 TAKE ONE TABLET BY MOUTH TWICE A DAY AT 7AM AND 9PM 08/11/2017 01/05/2018 Inactive Xarelto 20 mg tablet RxNorm: 2078381 Tablet(s) TAKE ONE TABLET BY MOUTH DAILY 06/25/2017 01/18/2018 Inactive metoprolol succinate ER 25 mg tablet,extended release 24 hr RxNorm: 825068 TAKE ONE TABLET BY MOUTH DAILY 06/20/2017 09/14/2017 Inactive Phenytek 200 mg capsule RxNorm: 670649 TAKE TWO CAPSULES BY MOUTH DAILY WITH 300 MG CAPSULE TO EQUAL 700 MG TOTAL DAILY 06/02/2017 08/25/2017 Inactive metoprolol succinate ER 25 mg tablet,extended release 24 hr RxNorm: 116757 TAKE ONE TABLET BY MOUTH DAILY 03/24/2017 06/19/2017 Inactive Phenytek 300 mg capsule RxNorm: 853888 TAKE ONE CAPSULE BY MOUTH DAILY WITH TWO 200 MG CAPS TO EQUAL 700 MG 03/12/2017 09/07/2017 Inactive Phenytek 200 mg capsule RxNorm: 049236 TAKE TWO CAPSULES BY MOUTH DAILY WITH 300 MG CAPSULE TO EQUAL 700 MG TOTAL DAILY 02/03/2017 06/01/2017 Inactive pantoprazole 40 mg tablet,delayed release RxNorm: 505049 TAKE ONE TABLET BY MOUTH TWICE A DAY AT 7AM AND 9PM 01/27/2017 07/25/2017 Inactive Ventolin HFA 90 mcg/actuation aerosol inhaler RxNorm: 872473 INHALE ONE PUFF BY MOUTH EVERY 4 TO 6 HOURS NEEDED 01/13/2017 03/19/2017 Inactive mupirocin 2 % topical ointment RxNorm: 010158 1 Application TOP BID 12/27/2016 01/05/2017 Inactive Xarelto 20 mg tablet RxNorm: 4539100 TAKE ONE TABLET BY MOUTH DAILY 11/28/2016 06/24/2017 Inactive Xarelto 20 mg tablet RxNorm: 3203878 TAKE ONE TABLET BY MOUTH DAILY 10/18/2016 11/27/2016 Inactive prednisone 10 mg tablet RxNorm: 913030 Tablet(s) PO UD 10/16/2016 10/21/2016 Inactive 6,5,4,3,2,1 prednisone 10 mg tablet RxNorm: 472615 Tablet(s) PO UD 10/16/2016 10/15/2016 Inactive 6,5,4,3,2,1 prednisone 20 mg tablet RxNorm: 591582 2 Tablet(s) PO daily 10/09/2016 10/13/2016 Inactive metoprolol succinate ER 25 mg tablet,extended release 24 hr RxNorm: 514062 TAKE ONE TABLET BY MOUTH DAILY 09/26/2016 03/23/2017 Inactive Phenytek 300 mg capsule RxNorm: 225484 TAKE ONE CAPSULE BY MOUTH DAILY WITH TWO 200 MG CAPS TO EQUAL 700 MG 09/17/2016 03/11/2017 Inactive Phenytek 200 mg capsule RxNorm: 216511 TAKE TWO CAPSULES BY MOUTH DAILY WITH 300 MG CAPSULE TO EQUAL 700 MG TOTAL DAILY 09/03/2016 01/30/2017 Inactive Xarelto 20 mg tablet RxNorm: 5648810 TAKE ONE TABLET BY MOUTH DAILY 07/23/2016 10/17/2016 Inactive pantoprazole 40 mg tablet,delayed release RxNorm: 115319 TAKE ONE TABLET BY MOUTH TWICE A DAY AT 7 AM AND 9 PM 07/02/2016 12/28/2016 Inactive Xarelto 20 mg tablet RxNorm: 0687121 1 Tablet(s) PO daily 03/25/2016 07/22/2016 Inactive Symbicort 160 mcg-4.5 mcg/actuation HFA aerosol inhaler RxNorm: 6729214 2 Puff(s) INH BID 03/11/2016 No Stop Date Active Phenytek 200 mg capsule RxNorm: 848877 TAKE TWO CAPSULES BY MOUTH DAILY WITH 300 MG CAPSULE TO EQUAL 700 MG TOTAL DAILY 03/08/2016 09/02/2016 Inactive prednisone 20 mg tablet RxNorm: 808498 2 Tablet(s) PO daily 02/23/2016 02/27/2016 Inactive Ventolin HFA 90 mcg/actuation aerosol inhaler RxNorm: 848034 1 Puff(s) INH Q4-6H as needed 02/23/2016 01/12/2017 Inactive Augmentin 875 mg-125 mg tablet RxNorm: 487359 1 Tablet(s) PO BID 02/23/2016 02/25/2016 Inactive nystatin 100,000 unit/gram topical powder RxNorm: 128553 1 Gram(s) TOP TID 01/16/2016 01/25/2016 Inactive Phenergan-Codeine 6.25 mg-10 mg/5 mL syrup RxNorm: 212173 5-10 Milliliter(s) PO Q6 as needed cough 12/01/2015 12/26/2016 Inactive Zithromax 250 mg tablet RxNorm: 451409 1 Tablet(s) PO daily 11/23/2015 11/26/2015 Inactive Zithromax 250 mg tablet RxNorm: 315572 1 Tablet(s) PO daily 11/23/2015 11/22/2015 Inactive Zithromax Z-Kevin 250 mg tablet RxNorm: 990317 1 Tablet(s) PO UD 11/20/2015 11/24/2015 Inactive zpack Kenalog 40 mg/mL suspension for injection RxNorm: 5723098 1 Milliliter(s) Inj 11/20/2015 11/20/2015 Inactive Coumadin 4 mg tablet RxNorm: 566874 TAKE TWO TABLETS BY MOUTH EVERY EVENING FOR 3 DAYS, THEN TAKE TAKE ONE TABLET BY MOUTH EVERY EVENING THEREAFTER 11/20/2015 03/10/2016 Inactive hydrochlorothiazide 25 mg tablet RxNorm: 739202 TAKE ONE TABLET BY MOUTH DAILY 10/11/2015 03/10/2016 Inactive triamcinolone acetonide 0.025 % topical ointment RxNorm: 7421726 1 Application TOP BID 09/01/2015 No Stop Date Active nystatin 100,000 unit/gram topical cream RxNorm: 316124 1 Gram(s) TOP BID 09/01/2015 09/08/2016 Inactive Phenytek 300 mg capsule RxNorm: 837429 1 Capsule(s) PO daily take with two 200mg tablets to equal 700mg 09/01/2015 03/28/2016 Inactive nystatin 100,000 unit/gram topical powder RxNorm: 321825 1 Application TOP 09/01/2015 09/01/2015 Inactive Anucort-HC 25 mg suppository RxNorm: 0513989 1 Suppository RTL BID x 1 week then as needed 08/09/2015 No Stop Date Active Phenytek 300 mg capsule RxNorm: 551149 1 Capsule(s) PO daily take with two 200mg tablets to equal 700mg 08/02/2015 08/31/2015 Inactive Phenytek 200 mg capsule RxNorm: 700022 Capsule(s) TAKE TWO CAPSULES BY MOUTH DAILY. TAKE WITH 300MG CAPSULE TO EQUAL 700MG TOTAL DAILY. 08/02/2015 02/27/2016 Inactive lorazepam 1 mg tablet RxNorm: 204002 1 Tablet(s) PO QID as needed seizure activity 06/26/2015 07/25/2015 Inactive Phenytek 200 mg capsule RxNorm: 312140 TAKE TWO CAPSULES BY MOUTH DAILY. TAKE WITH 300MG CAPSULE TO EQUAL 700MG TOTAL DAILY. 05/25/2015 07/23/2015 Inactive Phenytek 200 mg capsule RxNorm: 638067 TAKE TWO CAPSULES BY MOUTH DAILY. TAKE WITH 300MG CAPSULE TO EQUAL 700MG TOTAL DAILY. 05/03/2015 05/24/2015 Inactive hydrochlorothiazide 25 mg tablet RxNorm: 924387 TAKE ONE TABLET BY MOUTH DAILY 03/27/2015 09/22/2015 Inactive hydrochlorothiazide 25 mg tablet RxNorm: 593282 TAKE ONE TABLET BY MOUTH DAILY 03/27/2015 09/22/2015 Inactive Phenytek 300 mg capsule RxNorm: 889317 1 Capsule(s) PO daily take with 2 200mg tablets to equal 700mg 01/04/2015 08/01/2015 Inactive Coumadin 1 mg tablet RxNorm: 192427 TAKE 1 TABLET BY MOUTH DOCTOR DIRECTED 12/19/2014 03/18/2015 Inactive Coumadin 4 mg tablet RxNorm: 221653 1 Tablet(s) PO QPM when starting, pt to take 4mg two pills nightly x 3 nights then take one pill daily) 12/05/2014 06/25/2015 Inactive Phenytek 200 mg capsule RxNorm: 918630 TAKE TWO CAPSULES BY MOUTH DAILY. TAKE WITH 300MG CAPSULE TO EQUAL 700MG TOTAL DAILY. 11/08/2014 05/02/2015 Inactive metronidazole 500 mg tablet RxNorm: 549496 1 Tablet(s) PO TID 11/01/2014 11/10/2014 Inactive hydrochlorothiazide 25 mg tablet RxNorm: 638180 1 Tablet(s) PO daily 2014 03/26/2015 Inactive Coumadin 1 mg tablet RxNorm: 506632 TAKE 1 TABLET BY MOUTH DOCTOR DIRECTED 08/19/2014 10/31/2014 Inactive Coumadin 1 mg tablet RxNorm: 121696 1 Tablet(s) PO as doctor directed 07/21/2014 08/18/2014 Inactive Coumadin 1 mg tablet RxNorm: 826301 1 Tablet(s) PO as doctor directed 07/21/2014 07/20/2014 Inactive hydrochlorothiazide 12.5 mg tablet RxNorm: 941770 1 Tablet(s) PO daily 06/15/2014 08/28/2014 Inactive Coumadin 5 mg tablet RxNorm: 670801 1 Tablet(s) PO QPM 05/12/2014 10/31/2014 Inactive check lab in 2 weeks Bactrim DS 800 mg-160 mg tablet RxNorm: 792494 1 Tablet(s) PO BID 05/10/2014 05/09/2014 Inactive start after UA given to lab Bactrim DS 800 mg-160 mg tablet RxNorm: 992483 1 Tablet(s) PO BID 05/10/2014 05/16/2014 Inactive start after UA given to lab today Keflex 500 mg capsule RxNorm: 545013 1 Capsule(s) PO TID 04/26/2014 05/05/2014 Inactive Phenytek 300 mg capsule RxNorm: 102063 1 Capsule(s) PO daily 03/29/2014 03/28/2014 Inactive Phenytek 300 mg capsule RxNorm: 625172 1 Capsule(s) PO daily take with 2 200mg tablets to equal 700mg 03/29/2014 10/24/2014 Inactive Phenytek 200 mg capsule RxNorm: 103763 2 Capsule(s) PO daily take with a 300mg capsule to equal 700mg daily 03/29/2014 10/24/2014 Inactive Coumadin 4 mg tablet RxNorm: 261429 1 Tablet(s) PO QPM when starting, pt to take 4mg two pills nightly x 3 nights then take one pill daily) 03/29/2014 05/11/2014 Inactive hydrochlorothiazide 12.5 mg tablet RxNorm: 706873 1 Tablet(s) PO daily 03/29/2014 06/14/2014 Inactive Aspirin Low Dose 81 mg tablet,delayed release RxNorm: 499851 1 Tablet(s) PO daily No Start Date Active Phenergan-Codeine 6.25 mg-10 mg/5 mL syrup RxNorm: 832054 5-10 Milliliter(s) PO Q6 as needed cough No Start Date 11/30/2015 Inactive pantoprazole 40 mg tablet,delayed release RxNorm: 930479 1 Tablet(s) PO daily No Start Date 07/01/2016 Inactive Xarelto 20 mg tablet RxNorm: 0770726 Tablet(s) PO No Start Date 03/24/2016 Inactive 15mg BID x 21 days then 20mg daily lorazepam 0.5 mg tablet RxNorm: 473992 1 Tablet(s) PO as doctor directed for seizures No Start Date 06/25/2015 Inactive Symbicort 160 mcg-4.5 mcg/actuation HFA aerosol inhaler RxNorm: 9892164 inhalation No Start Date 03/10/2016 Inactive Phenytek oral RxNorm: 096790 oral No Start Date 03/28/2014 Inactive metoprolol succinate ER 25 mg tablet,extended release 24 hr RxNorm: 446811 1 Tablet(s) PO daily No Start Date 09/25/2016 Inactive aspirin 325 mg tablet,delayed release RxNorm: 639861 1 Tablet(s) PO QHS No Start Date 03/04/2016 Inactive Medication Administered Medication Codes Instructions Start Date Status Kenalog 40 mg/mL suspension for injection RxNorm: 3393445 1.5Milliliter 11/11/2017 No longer Active Kenalog 40 mg/mL suspension for injection RxNorm: 4584448 1Milliliter 11/20/2015 No longer Active Immunizations Vaccine [...] unspecified ICD-10: J06.9 ICD-9: 465.9 11/20/2015 Other alf (current) drug therapy ICD-10: Z79.899 ICD-9: V58.69 [...] Item Item Code Result Date Comp Metabolic Unr606 NA 141 mEq/L 09/09/2016 Comp Metabolic Sll260 K 3.8 mEq/L 09/09/2016 Comp Metabolic Afv588 CL 108 mEq/L 09/09/2016 Comp Metabolic Bfk575 CO2 24.0 mEq/L 09/09/2016 Comp Metabolic Vgz553 ANION GAP 13 09/09/2016 Comp Metabolic Dit727 GLUCOSE 134 mg/dL 09/09/2016 Comp Metabolic Eld120 Creat 0.8 mg/dL 09/09/2016 Comp Metabolic Xpv510 eGFR 113 ml/min/1.73m2 09/09/2016 Comp Metabolic Pcx694 BUN 16 mg/dL 09/09/2016 Comp Metabolic Oat024 B/C Ratio 21.1 Ratio 09/09/2016 Comp Metabolic Wtb464 CALCIUM 8.8 mg/dL 09/09/2016 Comp Metabolic Rlx029 ALK PHOS 111 U/L 09/09/2016 Comp Metabolic Cgc413 AST(SGOT) 16 U/L 09/09/2016 Comp Metabolic Zur047 ALT(SGPT) 16 U/L 09/09/2016 Comp Metabolic Rai364 BILI T 0.4 mg/dL 09/09/2016 Comp Metabolic Raj773 ALBUMIN 3.8 g/dL 09/09/2016 Comp Metabolic Hjt739 TPRO 7.0 g/dL 09/09/2016 Comp Metabolic Sgr452 GLOB 3.2 g/dL 09/09/2016 Comp Metabolic Xcf615 A/G Ratio 1.2 Ratio 09/09/2016 Comp Metabolic Sps920 Osmo 284 mOsmo 09/09/2016 Cbc With Differential [...] 32.6 pg 09/09/2016 Cbc With Differential Ord2 Caroline% 10.2 % 09/09/2016 Cbc With Differential Ord2 [...] 1.83 K/ul 09/09/2016 Cbc With Differential Ord2 Caroline ABS# 0.7 K/ul 09/09/2016 Cbc With Differential [...] 34.3 pg 12/26/2015 Cbc With Differential Ord2 Caroline% 8.7 % 12/26/2015 Cbc With Differential Ord2 [...] 1.71 K/ul 12/26/2015 Cbc With Differential Ord2 Caroline ABS# 0.7 K/ul 12/26/2015 Cbc With Differential Ord2 Eos ABS# 0.1 K/ul 12/26/2015 Cbc With Differential Ord2 Baso ABS# 0.0 K/ul 12/26/2015 Tsh Ord6 hTSH II 2.81 uIU/mL 12/26/2015 Comp Metabolic Cau750 NA 137 mEq/L 12/26/2015 Comp Metabolic Grf804 K 4.3 mEq/L 12/26/2015 Comp Metabolic Bsq434 CL 101 mEq/L 12/26/2015 Comp Metabolic Wnb915 CO2 27.0 mEq/L 12/26/2015 Comp Metabolic Okk517 ANION GAP 13 12/26/2015 Comp Metabolic Eea929 GLUCOSE 128 mg/dL 12/26/2015 Comp Metabolic Ppq469 Creat 0.8 mg/dL 12/26/2015 Comp Metabolic Ate636 eGFR 104 ml/min/1.73m2 12/26/2015 Comp Metabolic Eyb424 BUN 16 mg/dL 12/26/2015 Comp Metabolic Wzz738 B/C Ratio 19.5 Ratio 12/26/2015 Comp Metabolic Rrx806 CALCIUM 9.2 mg/dL 12/26/2015 Comp Metabolic Qor511 ALK PHOS 107 U/L 12/26/2015 Comp Metabolic Xwk263 AST(SGOT) 15 U/L 12/26/2015 Comp Metabolic Uuw387 ALT(SGPT) 15 U/L 12/26/2015 Comp Metabolic Akm507 BILI T 0.4 mg/dL 12/26/2015 Comp Metabolic Wxy925 ALBUMIN 4.0 g/dL 12/26/2015 Comp Metabolic Xfx679 TPRO 7.6 g/dL 12/26/2015 Comp Metabolic Udk523 GLOB 3.6 g/dL 12/26/2015 Comp Metabolic Wot278 A/G Ratio 1.1 Ratio 12/26/2015 Comp Metabolic Fku853 Osmo 277 mOsmo 12/26/2015 Dilantin Ord7 DILANTIN [...] contact 02/12/2018 None Full Exam - General 1995 Ears/Nose/Throat oral cavity/pharynx/larynx Posterior Pharynx: clear post [...] erythematous 11/11/2017 None Full Exam - General [facility] Constitutional general appearance Overall: well developed 10/17/2017 [...] contact 06/06/2017 None Full Exam - General 1995 Ears/Nose/Throat otoscopic exam Overall: external auditory canals [...] benign 03/29/2014 None Full Exam - General 1995 Ears/Nose/Throat oral cavity/pharynx/larynx Overall: no masses 03/29/2014 None Full Exam - General 1995 Ears/Nose/Throat oral cavity/pharynx/larynx Overall: oral mucosa clear 03/29/2014 None Full Exam - General 1995 Ears/Nose/Throat oral cavity/pharynx/larynx Overall: oropharyngeal mucosa clear [...] J3301 11/11/2017 OCCULT BLOOD FECES CPT- 4: 33664 10/28/2017 TRIAMCINOLONE ACET INJ NOS CPT-4: J3301 11/20/2015 Vital Signs Date Vital 02/12/2018 Blood Pressure 1: 134/80 Code: 8480-6 BMI: 48.7 Code: 51986-5 Heart Rate 1: 78 bpm Height: 5'11" SpO2: 96% Weight: 349 lbs 01/28/2018 Blood Pressure 1: 140/80 Code: 8480-6 BMI: 48.3 Code: 21102-0 Heart Rate 1: 78 bpm Height: 5'11" SpO2: 94% Temperature: 36.7 (C) / 98.1 (F) Weight: 346 lbs 11/11/2017 Blood Pressure 1: 144/82 Code: 8480-6 BMI: 47.1 Code: 36853-8 Heart Rate 1: 73 bpm Height: 5'11" SpO2: 94% Temperature: 36.9 (C) / 98.5 (F) Weight: 338 lbs 10/17/2017 Blood Pressure 1: 136/78 Code: 8480-6 BMI: 47.1 Code: 50077-0 Heart Rate 1: 82 bpm Height: 5'11" SpO2: 96% Weight: 338 lbs 06/06/2017 Blood Pressure 1: 138/76 Code: 8480-6 BMI: 47.4 Code: 73614-5 Heart Rate 1: 76 bpm Height: 5'11" SpO2: 96% Weight: 340 lbs 04/11/2017 Blood Pressure 1: 142/80 Code: 8480-6 Heart Rate 1: 79 bpm Height: 5'11" SpO2: 96% 01/27/2017 Blood Pressure 1: 146/86 Code: 8480-6 BMI: 47.1 Code: 89294-1 Heart Rate 1: 97 bpm Height: 5'11" SpO2: 95% Weight: 338 lbs 12/27/2016 Blood Pressure 1: 154/74 Code: 8480-6 BMI: 48.5 Code: 76622-2 Heart Rate 1: 82 bpm Height: 5'11" SpO2: 96% Weight: 348 lbs 10/09/2016 Blood Pressure 1: 160/82 Code: 8480-6 BMI: 47.4 Code: 67004-3 Heart Rate 1: 77 bpm Height: 5'11" SpO2: 96% Weight: 340 lbs 09/09/2016 Blood Pressure 1: 140/80 Code: 8480-6 Heart Rate 1: 88 bpm Height: 5'11" SpO2: 96% Weight: 05/31/2016 Blood Pressure 1: 126/78 Code: 8480-6 BMI: 46.3 Code: 65474-1 Heart Rate 1: 75 bpm Height: 5'11" SpO2: 96% Weight: 332 lbs 03/29/2016 Blood Pressure 1: 146/78 Code: 8480-6 Heart Rate 1: 78 bpm Height: 5'11" SpO2: 97% Weight: 03/11/2016 Blood Pressure 1: 136/86 Code: 8480-6 BMI: 44.4 Code: 54649-8 Heart Rate 1: 77 bpm Height: 5'11" SpO2: 96% Weight: 318 lbs 02/23/2016 Blood Pressure 1: 146/94 Code: 8480-6 BMI: 44.4 Code: 73326-0 Heart Rate 1: 90 bpm Height: 5'11" SpO2: 93% Weight: 318 lbs 01/16/2016 Blood Pressure 1: 140/86 Code: 8480-6 BMI: 44.6 Code: 68100-7 Heart Rate 1: 75 bpm Height: 5'11" SpO2: 96% Weight: 320 lbs 12/26/2015 Blood Pressure 1: 130/78 Code: 8480-6 BMI: 43.7 Code: 24035-4 Heart Rate 1: 96 bpm Height: 5'11" SpO2: 98% Weight: 313 lbs 11/20/2015 Blood Pressure 1: 137/92 Code: 8480-6 Heart Rate 1: 84 bpm Height: SpO2: 98% Temperature: 36.7 (C) / 98.0 (F) Weight: 09/01/2015 Blood Pressure 1: 148/88 Code: 8480-6 BMI: 43.8 Code: 35040-6 Heart Rate 1: 73 bpm Height: 5'11" SpO2: 97% Weight: 314 lbs 08/09/2015 Blood Pressure 1: 138/78 Code: 8480-6 BMI: 45.0 Code: 50399-6 Heart Rate 1: 75 bpm Height: 5'11" SpO2: 98% Weight: 323 lbs 06/26/2015 Blood Pressure 1: 134/80 Code: 8480-6 BMI: 46.3 Code: 29252-9 Heart Rate 1: 78 bpm Height: 5'11" SpO2: 96% Weight: 332 lbs 11/18/2014 Blood Pressure 1: 130/78 Code: 8480-6 BMI: 44.4 Code: 60680-8 Heart Rate 1: 66 bpm Height: 5'11" SpO2: 98% Weight: 318 lbs 11/01/2014 Blood Pressure 1: 130/78 Code: 8480-6 BMI: 44.5 Code: 90367-2 Heart Rate 1: 78 bpm Height: 5'11" SpO2: 97% Weight: 319 lbs 10/27/2014 Blood Pressure 1: 152/88 Code: 8480-6 BMI: 43.9 Code: 80180-6 Heart Rate 1: 91 bpm Height: 5'11" SpO2: 98% Weight: 315 lbs 2014 Blood Pressure 1: 140/82 Code: 8480-6 BMI: 44.9 Code: 53754-8 Heart Rate 1: 78 bpm Height: 5'11" Weight: 322 lbs 05/05/2014 Blood Pressure 1: 142/88 Code: 8480-6 BMI: 40.9 Code: 29312-1 Heart Rate 1: 64 bpm Height: 5'11" Temperature: 37.3 (C) / 99.1 (F) Weight: 293 lbs 04/26/2014 Blood Pressure 1: 142/82 Code: 8480-6 BMI: 40.2 Code: 02315-6 Heart Rate 1: 64 bpm Height: 5'11" Weight: 288 lbs 03/29/2014 Blood Pressure 1: 138/84 Code: 8480-6 BMI: 39.3 Code: 25828-8 Heart Rate 1: 84 bpm Height: 5'11" [...] Other allergic rhinitis[ICD10: J30.89] Elsie Salamanca MD, [facility] CPT- 4: 83107 02/12/2018 [id number] EST. PATIENT, LEVEL III Diagnosis: Acute laryngopharyngitis[ICD10: J06.0] Diagnosis: Other allergic rhinitis[ICD10: J30.89] Diagnosis: Encounter for therapeutic drug level monitoring[ICD10: Z51.81] Elsie Salamanca MD, [facility] CPT-4: 20642 01/28/2018 02182 EST. PATIENT, LEVEL III Diagnosis: Other acute sinusitis[ICD10: J01.80] Diagnosis: Other allergic rhinitis[ICD10: J30.89] Diagnosis: Cough[ICD10: R05] Elsie Salamanca MD, [facility] CPT-4: 95254 11/11/2017 98633 EST. PATIENT, LEVEL IV Diagnosis: Essential (primary) hypertension[ICD10: I10] Diagnosis: Epilepsy, unspecified, not intractable, without status epilepticus[ICD10: G40.909] Elsie Salamanca MD, [facility] CPT-4: 18399 10/17/2017 54930 EST. PATIENT, LEVEL IV Diagnosis: Essential (primary) hypertension[ICD10: I10] Diagnosis: Epilepsy, unspecified, not intractable, without status epilepticus[ICD10: G40.909] Elsie Salamanca MD, [facility] CPT-4: 18501 06/06/2017 97514 EST. PATIENT, LEVEL IV Diagnosis: Essential (primary) hypertension[ICD10: I10] Diagnosis: Epilepsy, unspecified, not intractable, without status epilepticus[ICD10: G40.909] Elsie Salamanca MD, [facility] CPT-4: 22820 04/11/2017 ([id number]) 57033 EST. PATIENT, LEVEL III Diagnosis: Essential (primary) hypertension[ICD10: I10] Diagnosis: Epilepsy, unspecified, not intractable, without status epilepticus[ICD10: G40.909] Leelee Salamanca MD, [facility] CPT-4: 88569 01/27/2017 ([id number]) 81376 EST. PATIENT, LEVEL IV Diagnosis: Essential (primary) hypertension[ICD10: I10] Diagnosis: Epilepsy, unspecified, not intractable, without status epilepticus[ICD10: G40.909] Diagnosis: Pain in right wrist[ICD10: M25.531] Leelee Salamanca MD, [facility] CPT-4: 74038 12/27/2016 02455 EST. PATIENT, LEVEL III Diagnosis: Rash and other nonspecific skin eruption[ICD10: R21] Elsie Salamanca MD, [facility] CPT-4: 43544 10/09/2016 ([id number]) 83747 EST. PATIENT, LEVEL III Diagnosis: Carpal tunnel syndrome, right upper limb[ICD10: G56.01] Diagnosis: Olecranon bursitis, right elbow[ICD10: M70.21] Betty Salamanca MD, [facility] CPT-4: 09577 09/09/2016 ([id number]) 17754 EST. PATIENT, LEVEL III Diagnosis: Essential (primary) hypertension[ICD10: I10] Diagnosis: Low back pain[ICD10: M54.5] Leelee Salamanca MD, [facility] CPT-4: 26090 05/31/2016 ([id number]) 24989 EST. PATIENT, LEVEL III Diagnosis: Essential (primary) hypertension[ICD10: I10] Diagnosis: Slow transit constipation[ICD10: K59.01] Leelee Salamanca MD, [facility] CPT-4: 00462 03/29/2016 ([id number]) 35150 EST. 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 PATIENT, LEVEL III Diagnosis: Acute laryngopharyngitis[ICD10: J06.0] Diagnosis: Other allergic rhinitis[ICD10: J30.89] Diagnosis: Cough[ICD10: R05] Diagnosis: Wheezing[ICD10: R06.2] Elsie Salamanca MD, [facility] CPT-4: 81525 02/23/2016 ([id number]) [id number] EST. PATIENT, LEVEL III Diagnosis: Epilepsy, unspecified, not intractable, without status epilepticus[ICD10: G40.909] Betty Salamanca MD, [facility] CPT-4: 49824 01/16/2016 [id number]) [id number] EST. PATIENT, LEVEL IV Diagnosis: Essential (primary) hypertension[ICD10: I10] Diagnosis: Morbid (severe) obesity due to excess calories[ICD10: E66.01] Diagnosis: Epilepsy, unspecified, not intractable, without status epilepticus[ICD10: G40.909] Betty Salamanca MD, [facility] CPT-4: 69627 12/26/2015 ([id number]) [id number] EST. PATIENT, LEVEL III Diagnosis: Allergic rhinitis due to pollen[ICD10: J30.1] Diagnosis: Acute upper respiratory infection, unspecified[ICD10: J06.9] Leelee Salamanca MD, [facility] CPT-4: 88181 11/20/2015 [id number] EST. PATIENT, LEVEL IV Diagnosis: Other alf (current) drug therapy[ICD10: Z79.899] Diagnosis: Candidiasis of skin and nail[ICD10: B37.2] Elsie Salamanca MD, [facility] CPT-4: 14089 09/01/2015 ([id number]) 94205 EST. PATIENT, LEVEL IV Diagnosis: Epilepsy, unspecified, not intractable, without status epilepticus[ICD10: G40.909] Diagnosis: Essential (primary) hypertension[ICD10: I10] Diagnosis: First degree hemorrhoids[ICD10: K64.0] Diagnosis: Low back pain[ICD10: M54.5] Betty Salamanca MD, [facility] CPT-4: 34119 08/09/2015 ([id number]) 97082 EST. PATIENT, LEVEL IV Diagnosis: Essential (primary) hypertension[ICD10: I10] Diagnosis: Morbid (severe) obesity due to excess calories[ICD10: E66.01] Diagnosis: Epilepsy, unspecified, not intractable, without status epilepticus[ICD10: G40.909] Betty Salamanca MD, [facility] CPT-4: 99692 06/26/2015 ([id number]) 46795 EST. PATIENT, LEVEL IV Diagnosis: ESSENTIAL HYPERTENSION[ICD9: 401.9] Diagnosis: Small bowel obstruction[ICD9: 560.9] Diagnosis: Hospital discharge follow-up[ICD9: V67.59] Betty Salamanca MD, [facility] CPT-4: 38842 11/18/2014 ([id number]) 23760 EST. PATIENT, LEVEL III Diagnosis: Diarrhea[ICD9: 787.91] Diagnosis: Abdominal pain[ICD9: 789.00] Betty Salamanca MD, [facility] CPT-4: 66720 11/01/2014 ([id number]) 07717 EST. PATIENT, LEVEL III Diagnosis: ESSENTIAL HYPERTENSION[ICD9: 401.9] Diagnosis: Diarrhea[ICD9: 787.91] Leelee Salamanca MD, [facility] CPT-4: 88650 10/27/2014 ([id number]) 43193 EST. PATIENT, LEVEL IV Diagnosis: Factor V Leiden mutation[ICD9: 289.81] Diagnosis: Hx of deep venous thrombosis[ICD9: V12.51] Diagnosis: ESSENTIAL HYPERTENSION[ICD9: 401.9] Diagnosis: OBESITY[ICD9: 278.00] Betty Salamanca MD, [facility] CPT-4: 01370 2014 ([id number]) 39939 EST. PATIENT, LEVEL III Diagnosis: Hematuria[ICD9: 599.70] Diagnosis: LONG-TERM USE ANTICOAGUL[ICD9: V58.61] Leelee Salamanca MD, [facility] CPT-4: 95804 05/05/2014 ([id number]) 74461 EST. PATIENT, LEVEL IV Diagnosis: ESSENTIAL HYPERTENSION[ICD9: 401.9] Diagnosis: LONG-TERM USE ANTICOAGUL[ICD9: V58.61] Diagnosis: MORBID OBESITY[ICD9: 278.01] Diagnosis: Abscess and cellulitis[ICD9: 682.9] Betty Salamanca MD, [facility] CPT- 4: 11498 04/26/2014 ([id number]) OFFICE VISIT, NEW - LEVEL 4 Diagnosis: ESSENTIAL HYPERTENSION[ICD9: 401.9] Diagnosis: LONG-TERM USE ANTICOAGUL[ICD9: V58.61] Betty Salamanca MD, [facility] CPT-4: 23556 03/29/2014 Plan of Care Planned Activity Notes [...] allergy spray. 02/12/2018 Appointment: Elsie Mosquera WPtel: [facility] [address] (15 min) Moderate 02/12/2018 Patient Education: Patient [...] allergy spray. 01/28/2018 Appointment: Elsie Mosquera WPtel: [address] [place] [address] (15 min) Moderate 01/28/2018 Patient Education: Patient [...] allergy spray. 11/11/2017 App[facility]ment[phone] [facility] ([facility] min) Moderate 11/11/2017 Patient Education: [...] weight check. 10/17/2017 Appointment: [facility] Mosquera [facility] [phone] [facility] (15 min) Moderate 10/17/2017 Patient Education: Patient Medication Summary Completed 10/17/2017 Appointment: Elsie Mosquera WPtel: [facility] [place] (15 min) Moderate 10/07/2017 Care Plan: BMI Above normal followup SELF-MGMT EDUC & TRAIN 1 PT Pending 06/09/2017 Visit Plan: Hypertension - improved - continue with current medications, continue with no added salt diet. Pt has been encouraged to exercise daily. The pt has been advised to call the office if there are any [place] concerns about change in blood pressure readings at home. Epilepsy- controlled, no changes, continue to monitor Obesity - chronic issue with this patient. The pt has been counseled about diet changes, calorie restriction, and need to exercise. Pt will RTC in one month for weight check. 06/06/2017 Appointment: Elsie Mosqueratel: [facility] (30 min) Complex 06/06/2017 Patient Education: [...] the office if there are any [place] concerns about change in blood pressure readings at home. Epilepsy- controlled, no changes, continue to monitor Obesity - chronic issue with this patient. The pt has been counseled about diet changes, calorie restriction, and need to exercise. Pt will RTC in one month for weight check. 04/11/2017 Appointment: Elsie Mosquera WPtel: [facility] (30 min) Complex 04/11/2017 Patient Education: Patient Medication Summary Completed 04/11/2017 Patient Education: Obesity Completed 04/11/2017 Appointment: Elsie Mosquera WPtel: [facility] (30 min) Complex 04/01/2017 Visit Plan: Hypertension - improved - continue with current medications, continue with no added salt diet. Pt has been encouraged to exercise daily. The pt has been advised to call the office if there are any [place] concerns about change in blood pressure readings at home. Obesity-lost 10#- continue diet/exercise Epilepsy-check dilantin level 01/27/2017 Appointment: Leelee Weinstein WPtel: [phone] (30 min) Complex 01/27/2017 Patient Education: Patient [...] Ordaz 12/27/2016 Appointment: Leelee Weinstein WPtel: [phone] [phone] [place] (30 min) Complex 12/27/2016 Patient Education: Patient Medication Summary Completed 12/27/2016 Care Plan: Referral Order SNOMED-CT : [id number] Pending 12/27/2016 Visit Plan: Rash - pt [...] Completed 10/09/2016 Appointment: Leelee Weinstein [facility]el[facility] [phone] [phone] [place] (30 min) Complex 10/04/2016 Visit Plan: on the rash on your foot, use benadryl cream mixed with cortisone cream - use a jerica size portion of both Carpal tunnel -wear a carpal tunnel brace at night and a tennis elbow brace during the day use aspercreme on your elbow and wrist at least twice a day 09/09/2016 Appointment: Betty Salamanca WPtel: [facility] (15 min) Moderate 09/09/2016 Patient Education: Patient [...] improve. 05/31/2016 Appointment: Leelee Weinstein WPtel: [phone] (30 min) Complex 05/31/2016 Patient Education: Patient Medication Summary Completed 05/31/2016 Patient Education: Obesity Completed 05/31/2016 Patient Education: Hypertension Completed 05/31/2016 Appointment: Leelee Weinstein WPtel: [phone] (30 min) Complex 04/01/2016 Visit Plan: Hypertension [...] of plan. 03/29/2016 Appointment: Leelee Weinstein WPtel: [phone] (15 min) Moderate 03/29/2016 Patient Education: Patient Medication Summary Completed 03/29/2016 Patient Education: Hypertension Completed 03/29/2016 Visit Plan: Bilateral PE-hospital follow up-on xarelto-symptoms improving Unsxb-ikewvggnem-wpmdozxk-continue symbicort twice daily as directed Hypertension - well controlled - continue with current medications, continue with no added salt diet. Pt has been encouraged to exercise daily. The pt has been advised to call the office if there are any acute concerns about change in blood pressure readings at home. 03/11/2016 Appointment: Leelee Weinstein WPtel: [phone] (30 min) Complex 03/11/2016 Patient Education: Patient [...] allergy spray. 02/23/2016 Appointment: Elsie Mosquera WPtel: [facility] (15 min) Moderate 02/23/2016 Patient Education: Patient Medication Summary Completed 02/23/2016 Patient Education: Obesity Completed 02/23/2016 Visit Plan: Epilepsy - continue with phenytek wound improving 01/16/2016 Appointment: Betty Salamanca WPtel: [facility] (15 min) Moderate 01/16/2016 Patient Education: Patient [...] current anti-epileptic 12/26/2015 Appointment: Betty Salamanca [facility]el[phone] [facility] (15 min) Moderate 12/26/2015 Patient Education: Patient [...] resolve 11/20/2015 Appointment: Lee[facility] Weinstein [facility] [phone] [phone] (15 min) Moderate 11/20/2015 Patient Education: Patient [...] in pain. 09/01/2015 Appointment: Leelee Weinstein WPtel: [phone] (30 min) [facility] 09/01/2015 Patient Education: Patient Medication Summary Completed 09/01/2015 Referral: Ady Oswald WPtel:[phone] Referral Completed 08/30/2015 Visit Plan: Hypertension - [...] 08/09/2015 Care Plan: Referral Order SNOMED-CT : [id number] Pending 07/12/2015 Visit Plan: Hypertension - well [...] on flagyl. 11/01/2014 Appointment: Betty Salamanca WPtel: [address] [place], [place] [address] (15 min) Moderate 11/01/2014 Patient Education: Patient [...] closely - 2014 Appointment: Betty Salamanca [facility]Ptel[facility] [phone] [facility] Follow [facility] 2014 Patient Education: Patient Medication Summary Completed 2014 Patient Education: Hypertension Completed 2014 Care Plan: Referral Order SNOMED-CT : [id number] Ordered 2014 Visit Plan: Hematuria-per patient report-no [...] weight check. 04/26/2014 Appointment: Betty Salamanca WPtel: [phone] [facility] Follow up 04/26/2014 Patient Education: Patient Medication [...] 3.5. 03/29/2014 Appointment: Betty Salamanca [facility]Ptel: [phone] [facility] New Patient 03/29/2014 Patient Education: Patient Medication Summary Completed 03/29/2014 Patient Education: Hypertension Completed 03/29/2014 Referral: Madhu Hall MD [address]Ptel: [address] Referral Completed Referral: Edilson Ordaz [facility] [place] Referral Appointment Requested Referral: Ady Oswald WPtel:[phone] Referral Appointment Requested Instructions Comment . Hypertension - continue with current medications, [...] allergy spray. [facility] WRIST [...] in one month for weight check. . Diarrhea - recommended bland diet, low [...] . Bilateral PE-hospital follow up-on xarelto-symptoms improving Yfmwy-iqcxwcirfa-rfhbmkgu-continue symbicort twice daily as directed Hypertension - [...] medication for treatment of seizure disorder. . Sinusitis - Pt has acute infection [...]
--- OUTSIDE RECORDS SUMMARY | 2018-09-06 06:27 | XMS REPORT | CCD ---
Author Author [facility] Organization [facility] Address [address] [place] [address] Phone Care Team Providers Care Internet Ecommerce Specialist Name Role Phone PP Unavailable CCM Unavailable Summary Purpose Interface Exchange Insurance Providers Payer name Policy type / Coverage type Covered green party ID Effective Begin Date Effective End Date Blue Cross Blue 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 [employer] 06/26/[address]: 799066327 Never smoker 06/26/[address]: 639552492 Never drinks alcohol 06/26/2015 Marital status Unknown [...] 477.0 ICD-10: J30.1 Active 11/19/2015 Unknown 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 ICD-9: V58.69 ICD-10: Z79.899 [...] ICD-9: 477.0 ICD-10: J30.1 11/19/2015 Active Other half-way (current) drug therapy ICD-9: V58.69 ICD-10: Z79.899 [...] Fill Instructions Zyrtec 10 mg tablet RxNorm: 8773772 1 Tablet(s) PO daily 02/12/2018 03/13/2018 Active Phenytek 200 mg capsule RxNorm: 931952 Capsule(s) TAKE TWO CAPSULES BY MOUTH DAILY WITH 300 MG CAPSULE TO EQUAL 700 MG TOTAL DAILY 01/28/2018 06/26/2018 Active MUST HAVE BRAND NAME MEDICATION Phenytek 300 mg capsule RxNorm: 306961 Capsule(s) TAKE ONE CAPSULE BY MOUTH DAILY WITH TWO 200 MG CAPS TO EQUAL 700 MG 01/28/2018 06/26/2018 Active MUST HAVE BRAND NAME MEDICATION Augmentin 875 mg-125 mg tablet RxNorm: 571367 1 Tablet(s) PO BID 01/28/2018 01/30/2018 Inactive prednisone 20 mg tablet RxNorm: 251267 2 Tablet(s) PO daily 01/28/2018 02/01/2018 Inactive Phenytek 300 mg capsule RxNorm: 675228 Capsule(s) TAKE ONE CAPSULE BY MOUTH DAILY WITH TWO 200 MG CAPS TO EQUAL 700 MG 01/22/2018 01/27/2018 Inactive Xarelto 20 mg tablet RxNorm: 6270204 TAKE ONE TABLET BY MOUTH DAILY 01/19/2018 07/17/2018 Active pantoprazole 40 mg tablet,delayed release RxNorm: 910514 TAKE ONE TABLET BY MOUTH TWICE A DAY AT 7AM AND 9PM 01/06/2018 07/04/2018 Active metoprolol succinate ER 25 mg tablet,extended release 24 hr RxNorm: 508155 Tablet(s) TAKE ONE TABLET BY MOUTH DAILY 12/11/2017 09/06/2018 Active Phenytek 200 mg capsule RxNorm: 076793 TAKE TWO CAPSULES BY MOUTH DAILY WITH 300 MG CAPSULE TO EQUAL 700 MG TOTAL DAILY 12/11/2017 01/27/2018 Inactive cefdinir 300 mg capsule RxNorm: 742640 1 Capsule(s) PO BID 11/14/2017 11/23/2017 Inactive cefdinir 300 mg capsule RxNorm: 456125 1 Capsule(s) PO BID 11/14/2017 11/13/2017 Inactive Phenergan with Codeine Syrup RxNorm: 5-10 Milliliter(s) PO QID as needed cough 11/11/2017 No Stop Date Active Zithromax Z-Kevin 250 mg tablet RxNorm: 812272 1 Tablet(s) PO UD 11/11/2017 No Stop Date Active prednisone 10 mg tablet RxNorm: 023140 Tablet(s) PO UD 11/11/2017 No Stop Date Active 6,5,4,3,2,1 Kenalog 40 mg/mL suspension for injection RxNorm: 9065230 1.5 Milliliter(s) Inj 11/11/2017 11/11/2017 Inactive metoprolol succinate ER 25 mg tablet,extended release 24 hr RxNorm: 832916 TAKE ONE TABLET BY MOUTH DAILY 09/15/2017 12/10/2017 Inactive Phenytek 300 mg capsule RxNorm: 629210 TAKE ONE CAPSULE BY MOUTH DAILY WITH TWO 200 MG CAPS TO EQUAL 700 MG 09/09/2017 01/21/2018 Inactive Phenytek 200 mg capsule RxNorm: 539378 TAKE TWO CAPSULES BY MOUTH DAILY WITH 300 MG CAPSULE TO EQUAL 700 MG TOTAL DAILY 08/26/2017 12/10/2017 Inactive pantoprazole 40 mg tablet,delayed release RxNorm: 763147 TAKE ONE TABLET BY MOUTH TWICE A DAY AT 7AM AND 9PM 08/11/2017 01/05/2018 Inactive Xarelto 20 mg tablet RxNorm: 9420156 Tablet(s) TAKE ONE TABLET BY MOUTH DAILY 06/25/2017 01/18/2018 Inactive metoprolol succinate ER 25 mg tablet,extended release 24 hr RxNorm: 917202 TAKE ONE TABLET BY MOUTH DAILY 06/20/2017 09/14/2017 Inactive Phenytek 200 mg capsule RxNorm: 923083 TAKE TWO CAPSULES BY MOUTH DAILY WITH 300 MG CAPSULE TO EQUAL 700 MG TOTAL DAILY 06/02/2017 08/25/2017 Inactive metoprolol succinate ER 25 mg tablet,extended release 24 hr RxNorm: 268380 TAKE ONE TABLET BY MOUTH DAILY 03/24/2017 06/19/2017 Inactive Phenytek 300 mg capsule RxNorm: 300372 TAKE ONE CAPSULE BY MOUTH DAILY WITH TWO 200 MG CAPS TO EQUAL 700 MG 03/12/2017 09/07/2017 Inactive Phenytek 200 mg capsule RxNorm: 994810 TAKE TWO CAPSULES BY MOUTH DAILY WITH 300 MG CAPSULE TO EQUAL 700 MG TOTAL DAILY 02/03/2017 06/01/2017 Inactive pantoprazole 40 mg tablet,delayed release RxNorm: 622788 TAKE ONE TABLET BY MOUTH TWICE A DAY AT 7AM AND 9PM 01/27/2017 07/25/2017 Inactive Ventolin HFA 90 mcg/actuation aerosol inhaler RxNorm: 363572 INHALE ONE PUFF BY MOUTH EVERY 4 TO 6 HOURS NEEDED 01/13/2017 03/19/2017 Inactive mupirocin 2 % topical ointment RxNorm: 143859 1 Application TOP BID 12/27/2016 01/05/2017 Inactive Xarelto 20 mg tablet RxNorm: 5590657 TAKE ONE TABLET BY MOUTH DAILY 11/28/2016 06/24/2017 Inactive Xarelto 20 mg tablet RxNorm: 8234708 TAKE ONE TABLET BY MOUTH DAILY 10/18/2016 11/27/2016 Inactive prednisone 10 mg tablet RxNorm: 589892 Tablet(s) PO UD 10/16/2016 10/21/2016 Inactive 6,5,4,3,2,1 prednisone 10 mg tablet RxNorm: 967401 Tablet(s) PO UD 10/16/2016 10/15/2016 Inactive 6,5,4,3,2,1 prednisone 20 mg tablet RxNorm: 975508 2 Tablet(s) PO daily 10/09/2016 10/13/2016 Inactive metoprolol succinate ER 25 mg tablet,extended release 24 hr RxNorm: 246854 TAKE ONE TABLET BY MOUTH DAILY 09/26/2016 03/23/2017 Inactive Phenytek 300 mg capsule RxNorm: 380101 TAKE ONE CAPSULE BY MOUTH DAILY WITH TWO 200 MG CAPS TO EQUAL 700 MG 09/17/2016 03/11/2017 Inactive Phenytek 200 mg capsule RxNorm: 789201 TAKE TWO CAPSULES BY MOUTH DAILY WITH 300 MG CAPSULE TO EQUAL 700 MG TOTAL DAILY 09/03/2016 01/30/2017 Inactive Xarelto 20 mg tablet RxNorm: 9040459 TAKE ONE TABLET BY MOUTH DAILY 07/23/2016 10/17/2016 Inactive pantoprazole 40 mg tablet,delayed release RxNorm: 088155 TAKE ONE TABLET BY MOUTH TWICE A DAY AT 7 AM AND 9 PM 07/02/2016 12/28/2016 Inactive Xarelto 20 mg tablet RxNorm: 6792947 1 Tablet(s) PO daily 03/25/2016 07/22/2016 Inactive Symbicort 160 mcg-4.5 mcg/actuation HFA aerosol inhaler RxNorm: 6214680 2 Puff(s) INH BID 03/11/2016 No Stop Date Active Phenytek 200 mg capsule RxNorm: 269619 TAKE TWO CAPSULES BY MOUTH DAILY WITH 300 MG CAPSULE TO EQUAL 700 MG TOTAL DAILY 03/08/2016 09/02/2016 Inactive prednisone 20 mg tablet RxNorm: 986428 2 Tablet(s) PO daily 02/23/2016 02/27/2016 Inactive Ventolin HFA 90 mcg/actuation aerosol inhaler RxNorm: 674159 1 Puff(s) INH Q4-6H as needed 02/23/2016 01/12/2017 Inactive Augmentin 875 mg-125 mg tablet RxNorm: 746207 1 Tablet(s) PO BID 02/23/2016 02/25/2016 Inactive nystatin 100,000 unit/gram topical powder RxNorm: 400553 1 Gram(s) TOP TID 01/16/2016 01/25/2016 Inactive Phenergan-Codeine 6.25 mg-10 mg/5 mL syrup RxNorm: 753546 5-10 Milliliter(s) PO Q6 as needed cough 12/01/2015 12/26/2016 Inactive Zithromax 250 mg tablet RxNorm: 813906 1 Tablet(s) PO daily 11/23/2015 11/26/2015 Inactive Zithromax 250 mg tablet RxNorm: 583470 1 Tablet(s) PO daily 11/23/2015 11/22/2015 Inactive Zithromax Z-Kevin 250 mg tablet RxNorm: 042303 1 Tablet(s) PO UD 11/20/2015 11/24/2015 Inactive zpack Kenalog 40 mg/mL suspension for injection RxNorm: 2611522 1 Milliliter(s) Inj 11/20/2015 11/20/2015 Inactive Coumadin 4 mg tablet RxNorm: 181541 TAKE TWO TABLETS BY MOUTH EVERY EVENING FOR 3 DAYS, THEN TAKE TAKE ONE TABLET BY MOUTH EVERY EVENING THEREAFTER 11/20/2015 03/10/2016 Inactive hydrochlorothiazide 25 mg tablet RxNorm: 676510 TAKE ONE TABLET BY MOUTH DAILY 10/11/2015 03/10/2016 Inactive triamcinolone acetonide 0.025 % topical ointment RxNorm: 0446945 1 Application TOP BID 09/01/2015 No Stop Date Active nystatin 100,000 unit/gram topical cream RxNorm: 372335 1 Gram(s) TOP BID 09/01/2015 09/08/2016 Inactive Phenytek 300 mg capsule RxNorm: 746882 1 Capsule(s) PO daily take with two 200mg tablets to equal 700mg 09/01/2015 03/28/2016 Inactive nystatin 100,000 unit/gram topical powder RxNorm: 667555 1 Application TOP 09/01/2015 09/01/2015 Inactive Anucort-HC 25 mg suppository RxNorm: 9295087 1 Suppository RTL BID x 1 week then as needed 08/09/2015 No Stop Date Active Phenytek 300 mg capsule RxNorm: 580840 1 Capsule(s) PO daily take with two 200mg tablets to equal 700mg 08/02/2015 08/31/2015 Inactive Phenytek 200 mg capsule RxNorm: 735079 Capsule(s) TAKE TWO CAPSULES BY MOUTH DAILY. TAKE WITH 300MG CAPSULE TO EQUAL 700MG TOTAL DAILY. 08/02/2015 02/27/2016 Inactive lorazepam 1 mg tablet RxNorm: 657932 1 Tablet(s) PO QID as needed seizure activity 06/26/2015 07/25/2015 Inactive Phenytek 200 mg capsule RxNorm: 526889 TAKE TWO CAPSULES BY MOUTH DAILY. TAKE WITH 300MG CAPSULE TO EQUAL 700MG TOTAL DAILY. 05/25/2015 07/23/2015 Inactive Phenytek 200 mg capsule RxNorm: 018920 TAKE TWO CAPSULES BY MOUTH DAILY. TAKE WITH 300MG CAPSULE TO EQUAL 700MG TOTAL DAILY. 05/03/2015 05/24/2015 Inactive hydrochlorothiazide 25 mg tablet RxNorm: 706622 TAKE ONE TABLET BY MOUTH DAILY 03/27/2015 09/22/2015 Inactive hydrochlorothiazide 25 mg tablet RxNorm: 853493 TAKE ONE TABLET BY MOUTH DAILY 03/27/2015 09/22/2015 Inactive Phenytek 300 mg capsule RxNorm: 340708 1 Capsule(s) PO daily take with 2 200mg tablets to equal 700mg 01/04/2015 08/01/2015 Inactive Coumadin 1 mg tablet RxNorm: 644430 TAKE 1 TABLET BY MOUTH DOCTOR DIRECTED 12/19/2014 03/18/2015 Inactive Coumadin 4 mg tablet RxNorm: 151086 1 Tablet(s) PO QPM when starting, pt to take 4mg two pills nightly x 3 nights then take one pill daily) 12/05/2014 06/25/2015 Inactive Phenytek 200 mg capsule RxNorm: 458535 TAKE TWO CAPSULES BY MOUTH DAILY. TAKE WITH 300MG CAPSULE TO EQUAL 700MG TOTAL DAILY. 11/08/2014 05/02/2015 Inactive metronidazole 500 mg tablet RxNorm: 879988 1 Tablet(s) PO TID 11/01/2014 11/10/2014 Inactive hydrochlorothiazide 25 mg tablet RxNorm: 495790 1 Tablet(s) PO daily 2014 03/26/2015 Inactive Coumadin 1 mg tablet RxNorm: 414261 TAKE 1 TABLET BY MOUTH DOCTOR DIRECTED 08/19/2014 10/31/2014 Inactive Coumadin 1 mg tablet RxNorm: 861565 1 Tablet(s) PO as doctor directed 07/21/2014 08/18/2014 Inactive Coumadin 1 mg tablet RxNorm: 857846 1 Tablet(s) PO as doctor directed 07/21/2014 07/20/2014 Inactive hydrochlorothiazide 12.5 mg tablet RxNorm: 613740 1 Tablet(s) PO daily 06/15/2014 08/28/2014 Inactive Coumadin 5 mg tablet RxNorm: 411535 1 Tablet(s) PO QPM 05/12/2014 10/31/2014 Inactive check lab in 2 weeks Bactrim DS 800 mg-160 mg tablet RxNorm: 279528 1 Tablet(s) PO BID 05/10/2014 05/09/2014 Inactive start after UA given to lab Bactrim DS 800 mg-160 mg tablet RxNorm: 318527 1 Tablet(s) PO BID 05/10/2014 05/16/2014 Inactive start after UA given to lab today Keflex 500 mg capsule RxNorm: 319133 1 Capsule(s) PO TID 04/26/2014 05/05/2014 Inactive Phenytek 300 mg capsule RxNorm: 966237 1 Capsule(s) PO daily 03/29/2014 03/28/2014 Inactive Phenytek 300 mg capsule RxNorm: 850672 1 Capsule(s) PO daily take with 2 200mg tablets to equal 700mg 03/29/2014 10/24/2014 Inactive Phenytek 200 mg capsule RxNorm: 416915 2 Capsule(s) PO daily take with a 300mg capsule to equal 700mg daily 03/29/2014 10/24/2014 Inactive Coumadin 4 mg tablet RxNorm: 392713 1 Tablet(s) PO QPM when starting, pt to take 4mg two pills nightly x 3 nights then take one pill daily) 03/29/2014 05/11/2014 Inactive hydrochlorothiazide 12.5 mg tablet RxNorm: 273804 1 Tablet(s) PO daily 03/29/2014 06/14/2014 Inactive Aspirin Low Dose 81 mg tablet,delayed release RxNorm: 923046 1 Tablet(s) PO daily No Start Date Active Phenergan-Codeine 6.25 mg-10 mg/5 mL syrup RxNorm: 081366 5-10 Milliliter(s) PO Q6 as needed cough No Start Date 11/30/2015 Inactive pantoprazole 40 mg tablet,delayed release RxNorm: 197724 1 Tablet(s) PO daily No Start Date 07/01/2016 Inactive Xarelto 20 mg tablet RxNorm: 2755467 Tablet(s) PO No Start Date 03/24/2016 Inactive 15mg BID x 21 days then 20mg daily lorazepam 0.5 mg tablet RxNorm: 927207 1 Tablet(s) PO as doctor directed for seizures No Start Date 06/25/2015 Inactive Symbicort 160 mcg-4.5 mcg/actuation HFA aerosol inhaler RxNorm: 7134386 inhalation No Start Date 03/10/2016 Inactive Phenytek oral RxNorm: 068291 oral No Start Date 03/28/2014 Inactive metoprolol succinate ER 25 mg tablet,extended release 24 hr RxNorm: 101951 1 Tablet(s) PO daily No Start Date 09/25/2016 Inactive aspirin 325 mg tablet,delayed release RxNorm: 741013 1 Tablet(s) PO QHS No Start Date 03/04/2016 Inactive Medication Administered Medication Codes Instructions Start Date Status Kenalog 40 mg/mL suspension for injection RxNorm: 9234218 1.5Milliliter 11/11/2017 No longer Active Kenalog 40 mg/mL suspension for injection RxNorm: 3665163 1Milliliter 11/20/2015 No longer Active Immunizations Vaccine [...] unspecified ICD-10: J06.9 ICD-9: 465.9 11/20/2015 Other half-way (current) drug therapy ICD-10: Z79.899 ICD-9: V58.69 [...] Item Item Code Result Date Comp Metabolic Djs571 NA 141 mEq/L 09/09/2016 Comp Metabolic Ebm895 K 3.8 mEq/L 09/09/2016 Comp Metabolic Bni113 CL 108 mEq/L 09/09/2016 Comp Metabolic Rdi370 CO2 24.0 mEq/L 09/09/2016 Comp Metabolic Fle556 ANION GAP 13 09/09/2016 Comp Metabolic Huv566 GLUCOSE 134 mg/dL 09/09/2016 Comp Metabolic Ycp364 Creat 0.8 mg/dL 09/09/2016 Comp Metabolic Uae862 eGFR 113 ml/min/1.73m2 09/09/2016 Comp Metabolic Hvj931 BUN 16 mg/dL 09/09/2016 Comp Metabolic Lem419 B/C Ratio 21.1 Ratio 09/09/2016 Comp Metabolic Efi443 CALCIUM 8.8 mg/dL 09/09/2016 Comp Metabolic Yzf301 ALK PHOS 111 U/L 09/09/2016 Comp Metabolic Lso340 AST(SGOT) 16 U/L 09/09/2016 Comp Metabolic Gpr959 ALT(SGPT) 16 U/L 09/09/2016 Comp Metabolic Dmz854 BILI T 0.4 mg/dL 09/09/2016 Comp Metabolic Dsf368 ALBUMIN 3.8 g/dL 09/09/2016 Comp Metabolic Dxa948 TPRO 7.0 g/dL 09/09/2016 Comp Metabolic Ljr658 GLOB 3.2 g/dL 09/09/2016 Comp Metabolic Xxp426 A/G Ratio 1.2 Ratio 09/09/2016 Comp Metabolic Mui248 Osmo 284 mOsmo 09/09/2016 Cbc With Differential [...] 32.6 pg 09/09/2016 Cbc With Differential Ord2 [place]% 10.2 % 09/09/2016 Cbc With Differential Ord2 [...] 1.83 K/ul 09/09/2016 Cbc With Differential Ord2 [place] ABS# 0.7 K/ul 09/09/2016 Cbc With Differential [...] 34.3 pg 12/26/2015 Cbc With Differential Ord2 [place]% 8.7 % 12/26/2015 Cbc With Differential Ord2 [...] 1.71 K/ul 12/26/2015 Cbc With Differential Ord2 [place] ABS# 0.7 K/ul 12/26/2015 Cbc With Differential Ord2 [place] ABS# 0.1 K/ul 12/26/2015 Cbc With Differential Ord2 Baso ABS# 0.0 K/ul 12/26/2015 Tsh Ord6 hTSH II 2.81 uIU/mL 12/26/2015 Comp Metabolic Hux874 NA 137 mEq/L 12/26/2015 Comp Metabolic Krm456 K 4.3 mEq/L 12/26/2015 Comp Metabolic Xkn711 CL 101 mEq/L 12/26/2015 Comp Metabolic Qmj932 CO2 27.0 mEq/L 12/26/2015 Comp Metabolic Chq000 ANION GAP 13 12/26/2015 Comp Metabolic Kie695 GLUCOSE 128 mg/dL 12/26/2015 Comp Metabolic Lkb211 Creat 0.8 mg/dL 12/26/2015 Comp Metabolic Yvg876 eGFR 104 ml/min/1.73m2 12/26/2015 Comp Metabolic Hly155 BUN 16 mg/dL 12/26/2015 Comp Metabolic Tln827 B/C Ratio 19.5 Ratio 12/26/2015 Comp Metabolic Ndn899 CALCIUM 9.2 mg/dL 12/26/2015 Comp Metabolic Elj569 ALK PHOS 107 U/L 12/26/2015 Comp Metabolic Mqm818 AST(SGOT) 15 U/L 12/26/2015 Comp Metabolic Rbc972 ALT(SGPT) 15 U/L 12/26/2015 Comp Metabolic Yjv621 BILI T 0.4 mg/dL 12/26/2015 Comp Metabolic Nda301 ALBUMIN 4.0 g/dL 12/26/2015 Comp Metabolic Khl279 TPRO 7.6 g/dL 12/26/2015 Comp Metabolic Vav571 GLOB 3.6 g/dL 12/26/2015 Comp Metabolic Nsy464 A/G Ratio 1.1 Ratio 12/26/2015 Comp Metabolic Bph458 Osmo 277 mOsmo 12/26/2015 Dilantin Ord7 DILANTIN [...] erythematous 11/11/2017 None Full Exam - General [facility] Constitutional general appearance Overall: well developed 10/17/2017 [...] J3301 11/11/2017 OCCULT BLOOD FECES CPT- 4: 23237 10/28/2017 TRIAMCINOLONE ACET INJ NOS CPT-4: J3301 11/20/2015 Vital Signs Date Vital 02/12/2018 Blood Pressure 1: 134/80 Code: 8480-6 BMI: 48.7 Code: 83233-8 Heart Rate 1: 78 bpm Height: 5'11" SpO2: 96% Weight: 349 lbs 01/28/2018 Blood Pressure 1: 140/80 Code: 8480-6 BMI: 48.3 Code: 48989-4 Heart Rate 1: 78 bpm Height: 5'11" SpO2: 94% Temperature: 36.7 (C) / 98.1 (F) Weight: 346 lbs 11/11/2017 Blood Pressure 1: 144/82 Code: 8480-6 BMI: 47.1 Code: 54027-3 Heart Rate 1: 73 bpm Height: 5'11" SpO2: 94% Temperature: 36.9 (C) / 98.5 (F) Weight: 338 lbs 10/17/2017 Blood Pressure 1: 136/78 Code: 8480-6 BMI: 47.1 Code: 19069-1 Heart Rate 1: 82 bpm Height: 5'11" SpO2: 96% Weight: 338 lbs 06/06/2017 Blood Pressure 1: 138/76 Code: 8480-6 BMI: 47.4 Code: 09575-0 Heart Rate 1: 76 bpm Height: 5'11" SpO2: 96% Weight: 340 lbs 04/11/2017 Blood Pressure 1: 142/80 Code: 8480-6 Heart Rate 1: 79 bpm Height: 5'11" SpO2: 96% 01/27/2017 Blood Pressure 1: 146/86 Code: 8480-6 BMI: 47.1 Code: 05947-6 Heart Rate 1: 97 bpm Height: 5'11" SpO2: 95% Weight: 338 lbs 12/27/2016 Blood Pressure 1: 154/74 Code: 8480-6 BMI: 48.5 Code: 48853-5 Heart Rate 1: 82 bpm Height: 5'11" SpO2: 96% Weight: 348 lbs 10/09/2016 Blood Pressure 1: 160/82 Code: 8480-6 BMI: 47.4 Code: 29961-4 Heart Rate 1: 77 bpm Height: 5'11" SpO2: 96% Weight: 340 lbs 09/09/2016 Blood Pressure 1: 140/80 Code: 8480-6 Heart Rate 1: 88 bpm Height: 5'11" SpO2: 96% Weight: 05/31/2016 Blood Pressure 1: 126/78 Code: 8480-6 BMI: 46.3 Code: 72557-3 Heart Rate 1: 75 bpm Height: 5'11" SpO2: 96% Weight: 332 lbs 03/29/2016 Blood Pressure 1: 146/78 Code: 8480-6 Heart Rate 1: 78 bpm Height: 5'11" SpO2: 97% Weight: 03/11/2016 Blood Pressure 1: 136/86 Code: 8480-6 BMI: 44.4 Code: 67625-3 Heart Rate 1: 77 bpm Height: 5'11" SpO2: 96% Weight: 318 lbs 02/23/2016 Blood Pressure 1: 146/94 Code: 8480-6 BMI: 44.4 Code: 58277-0 Heart Rate 1: 90 bpm Height: 5'11" SpO2: 93% Weight: 318 lbs 01/16/2016 Blood Pressure 1: 140/86 Code: 8480-6 BMI: 44.6 Code: 46443-1 Heart Rate 1: 75 bpm Height: 5'11" SpO2: 96% Weight: 320 lbs 12/26/2015 Blood Pressure 1: 130/78 Code: 8480-6 BMI: 43.7 Code: 99465-2 Heart Rate 1: 96 bpm Height: 5'11" SpO2: 98% Weight: 313 lbs 11/20/2015 Blood Pressure 1: 137/92 Code: 8480-6 Heart Rate 1: 84 bpm Height: SpO2: 98% Temperature: 36.7 (C) / 98.0 (F) Weight: 09/01/2015 Blood Pressure 1: 148/88 Code: 8480-6 BMI: 43.8 Code: 49590-5 Heart Rate 1: 73 bpm Height: 5'11" SpO2: 97% Weight: 314 lbs 08/09/2015 Blood Pressure 1: 138/78 Code: 8480-6 BMI: 45.0 Code: 56320-4 Heart Rate 1: 75 bpm Height: 5'11" SpO2: 98% Weight: 323 lbs 06/26/2015 Blood Pressure 1: 134/80 Code: 8480-6 BMI: 46.3 Code: 71935-8 Heart Rate 1: 78 bpm Height: 5'11" SpO2: 96% Weight: 332 lbs 11/18/2014 Blood Pressure 1: 130/78 Code: 8480-6 BMI: 44.4 Code: 40157-2 Heart Rate 1: 66 bpm Height: 5'11" SpO2: 98% Weight: 318 lbs 11/01/2014 Blood Pressure 1: 130/78 Code: 8480-6 BMI: 44.5 Code: 64540-8 Heart Rate 1: 78 bpm Height: 5'11" SpO2: 97% Weight: 319 lbs 10/27/2014 Blood Pressure 1: 152/88 Code: 8480-6 BMI: 43.9 Code: 38463-6 Heart Rate 1: 91 bpm Height: 5'11" SpO2: 98% Weight: 315 lbs 2014 Blood Pressure 1: 140/82 Code: 8480-6 BMI: 44.9 Code: 10981-7 Heart Rate 1: 78 bpm Height: 5'11" Weight: 322 lbs 05/05/2014 Blood Pressure 1: 142/88 Code: 8480-6 BMI: 40.9 Code: 83806-2 Heart Rate 1: 64 bpm Height: 5'11" Temperature: 37.3 (C) / 99.1 (F) Weight: 293 lbs 04/26/2014 Blood Pressure 1: 142/82 Code: 8480-6 BMI: 40.2 Code: 11777-6 Heart Rate 1: 64 bpm Height: 5'11" Weight: 288 lbs 03/29/2014 Blood Pressure 1: 138/84 Code: 8480-6 BMI: 39.3 Code: 81599-7 Heart Rate 1: 84 bpm Height: 5'11" [...] Other allergic rhinitis[ICD10: J30.89] Elsie Salamanca MD, [facility] CPT- 4: 14192 02/12/2018 14104 EST. PATIENT, LEVEL III Diagnosis: Acute laryngopharyngitis[ICD10: J06.0] Diagnosis: Other allergic rhinitis[ICD10: J30.89] Diagnosis: Encounter for therapeutic drug level monitoring[ICD10: Z51.81] Elsie Salamanca MD, [facility] CPT-4: 98330 01/28/2018 91534 EST. PATIENT, LEVEL III Diagnosis: Other acute sinusitis[ICD10: J01.80] Diagnosis: Other allergic rhinitis[ICD10: J30.89] Diagnosis: Cough[ICD10: R05] Elsie Salamanca MD, [facility] CPT-4: 57199 11/11/2017 90161 EST. PATIENT, LEVEL IV Diagnosis: Essential (primary) hypertension[ICD10: I10] Diagnosis: Epilepsy, unspecified, not intractable, without status epilepticus[ICD10: G40.909] Elsei Salamanca MD, [facility] CPT-4: 27572 10/17/2017 36473 EST. PATIENT, LEVEL IV Diagnosis: Essential (primary) hypertension[ICD10: I10] Diagnosis: Epilepsy, unspecified, not intractable, without status epilepticus[ICD10: G40.909] Elsie Salamanca MD, [facility] CPT-4: 82988 06/06/2017 75528 EST. PATIENT, LEVEL IV Diagnosis: Essential (primary) hypertension[ICD10: I10] Diagnosis: Epilepsy, unspecified, not intractable, without status epilepticus[ICD10: G40.909] Elsie Salamanca MD, [facility] CPT-4: 24602 04/11/2017 ([id number]) 28771 EST. PATIENT, LEVEL III Diagnosis: Essential (primary) hypertension[ICD10: I10] Diagnosis: Epilepsy, unspecified, not intractable, without status epilepticus[ICD10: G40.909] Leelee Salamanca MD, [facility] CPT-4: 54286 01/27/2017 ([id number]) 76869 EST. PATIENT, LEVEL IV Diagnosis: Essential (primary) hypertension[ICD10: I10] Diagnosis: Epilepsy, unspecified, not intractable, without status epilepticus[ICD10: G40.909] Diagnosis: Pain in right wrist[ICD10: M25.531] Leelee Salamanca MD, [facility] CPT-4: 72685 12/27/2016 34803 EST. PATIENT, LEVEL III Diagnosis: Rash and other nonspecific skin eruption[ICD10: R21] Elsie Salamanca MD, [facility] CPT-4: 32793 10/09/2016 ([id number]) 71883 EST. PATIENT, LEVEL III Diagnosis: Carpal tunnel syndrome, right upper limb[ICD10: G56.01] Diagnosis: Olecranon bursitis, right elbow[ICD10: M70.21] Betty Salamanca MD, [facility] CPT-4: 34329 09/09/2016 ([id number]) 31290 EST. PATIENT, LEVEL III Diagnosis: Essential (primary) hypertension[ICD10: I10] Diagnosis: Low back pain[ICD10: M54.5] Leelee Salamanca MD, [facility] CPT-4: 05402 05/31/2016 ([id number]) 88908 EST. PATIENT, LEVEL III Diagnosis: Essential (primary) hypertension[ICD10: I10] Diagnosis: Slow transit constipation[ICD10: K59.01] Leelee Salamanca MD, [facility] CPT-4: 02709 03/29/2016 ([id number]) 51904 EST. 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 PATIENT, LEVEL III Diagnosis: Acute laryngopharyngitis[ICD10: J06.0] Diagnosis: Other allergic rhinitis[ICD10: J30.89] Diagnosis: Cough[ICD10: R05] Diagnosis: Wheezing[ICD10: R06.2] Elsie Salamanca MD, [facility] CPT-4: 40307 02/23/2016 ([id number]) 88496 EST. PATIENT, LEVEL III Diagnosis: Epilepsy, unspecified, not intractable, without status epilepticus[ICD10: G40.909] Betty Salamanca MD, [facility] CPT-4: 58293 01/16/[id number]) 37483 EST. PATIENT, LEVEL IV Diagnosis: Essential (primary) hypertension[ICD10: I10] Diagnosis: Morbid (severe) obesity due to excess calories[ICD10: E66.01] Diagnosis: Epilepsy, unspecified, not intractable, without status epilepticus[ICD10: G40.909] Betty Salamanca MD, [facility] CPT-4: 99233 12/26/2015 ([id number]) 31181 EST. PATIENT, LEVEL III Diagnosis: Allergic rhinitis due to pollen[ICD10: J30.1] Diagnosis: Acute upper respiratory infection, unspecified[ICD10: J06.9] Leelee Salamanca MD, [facility] CPT-4: 03791 11/20/2015 [id number] EST. PATIENT, LEVEL IV Diagnosis: Other half-way (current) drug therapy[ICD10: Z79.899] Diagnosis: Candidiasis of skin and nail[ICD10: B37.2] Elsie Salamanca MD, [facility] CPT-4: 74024 09/01/2015 ([id number]) [id number] EST. PATIENT, LEVEL IV Diagnosis: Epilepsy, unspecified, not intractable, without status epilepticus[ICD10: G40.909] Diagnosis: Essential (primary) hypertension[ICD10: I10] Diagnosis: First degree hemorrhoids[ICD10: K64.0] Diagnosis: Low back pain[ICD10: M54.5] Betty Salamanca MD, [facility] CPT-4: 42982 08/09/2015 ([id number]) 19752 EST. PATIENT, LEVEL IV Diagnosis: Essential (primary) hypertension[ICD10: I10] Diagnosis: Morbid (severe) obesity due to excess calories[ICD10: E66.01] Diagnosis: Epilepsy, unspecified, not intractable, without status epilepticus[ICD10: G40.909] Betty Salamanca MD, [facility] CPT-4: 32324 06/26/2015 ([id number]) 86796 EST. PATIENT, LEVEL IV Diagnosis: ESSENTIAL HYPERTENSION[ICD9: 401.9] Diagnosis: Small bowel obstruction[ICD9: 560.9] Diagnosis: Hospital discharge follow-up[ICD9: V67.59] Betty Salamanca MD, [facility] CPT-4: 41950 11/18/2014 ([id number]) 43573 EST. PATIENT, LEVEL III Diagnosis: Diarrhea[ICD9: 787.91] Diagnosis: Abdominal pain[ICD9: 789.00] Betty Salamanca MD, [facility] CPT-4: 62028 11/01/2014 ([id number]) 15819 EST. PATIENT, LEVEL III Diagnosis: ESSENTIAL HYPERTENSION[ICD9: 401.9] Diagnosis: Diarrhea[ICD9: 787.91] Leelee Salamanca MD, [facility] CPT-4: 04070 10/27/2014 ([id number]) 78095 EST. PATIENT, LEVEL IV Diagnosis: Factor V Leiden mutation[ICD9: 289.81] Diagnosis: Hx of deep venous thrombosis[ICD9: V12.51] Diagnosis: ESSENTIAL HYPERTENSION[ICD9: 401.9] Diagnosis: OBESITY[ICD9: 278.00] Betty Salamanca MD, [facility] CPT-4: 40062 2014 ([id number]) 49433 EST. PATIENT, LEVEL III Diagnosis: Hematuria[ICD9: 599.70] Diagnosis: LONG-TERM USE ANTICOAGUL[ICD9: V58.61] Leelee Salamanca MD, [facility] CPT-4: 81537 05/05/2014 ([id number]) 38401 EST. PATIENT, LEVEL IV Diagnosis: ESSENTIAL HYPERTENSION[ICD9: 401.9] Diagnosis: LONG-TERM USE ANTICOAGUL[ICD9: V58.61] Diagnosis: MORBID OBESITY[ICD9: 278.01] Diagnosis: Abscess and cellulitis[ICD9: 682.9] Betty Salamanca MD, [facility] CPT- 4: 41712 04/26/2014 ([id number]) OFFICE VISIT, NEW - LEVEL 4 Diagnosis: ESSENTIAL HYPERTENSION[ICD9: 401.9] Diagnosis: LONG-TERM USE ANTICOAGUL[ICD9: V58.61] Betty Salamanca MD, [facility] CPT-4: 34952 03/29/2014 Plan of Care Planned Activity Notes [...] allergy spray. 02/12/2018 Appointment: Elsie Mosquera WPtel: [facility] (15 min) Moderate 02/12/2018 Patient Education: [...] allergy spray. 01/28/2018 Appointment: Elsie Mosquera WPtel: [address] [place] [address] (15 min) Moderate 01/28/2018 Patient Education: Patient [...] spray. 11/11/2017 App[facility]ment: [phone] [facility] (15 min) Moderate 11/11/2017 Patient Education: [...] weight check. 10/17/2017 Appointment: [facility] [phone] [facility] (15 min) Moderate 10/17/2017 Patient Education: Patient Medication Summary Completed 10/17/2017 Appointment: Elsie Mosquera WPtel: [facility] [place] (15 min) Moderate 10/07/2017 Care Plan: BMI Above normal followup SELF-MGMT EDUC & TRAIN 1 PT Pending 06/09/2017 Visit Plan: Hypertension - improved - continue with current medications, continue with no added salt diet. Pt has been encouraged to exercise daily. The pt has been advised to call the office if there are any [place] concerns about change in blood pressure readings at home. Epilepsy- controlled, no changes, continue to monitor Obesity - chronic issue with this patient. The pt has been counseled about diet changes, calorie restriction, and need to exercise. Pt will RTC in one month for weight check. 06/06/2017 Appointment: Elsie Mosqueratel: [facility] (30 min) Complex 06/06/2017 Patient Education: [...] the office if there are any [place] concerns about change in blood pressure readings at home. Epilepsy- controlled, no changes, continue to monitor Obesity - chronic issue with this patient. The pt has been counseled about diet changes, calorie restriction, and need to exercise. Pt will RTC in one month for weight check. 04/11/2017 Appointment: Elsie Mosquera WPtel: [facility] (30 min) Complex 04/11/2017 Patient Education: Patient Medication Summary Completed 04/11/2017 Patient Education: Obesity Completed 04/11/2017 Appointment: Elsie Mosquera WPtel: [facility]5 [facility] (30 min) Complex 04/01/2017 Visit Plan: Hypertension - improved - continue with current medications, continue with no added salt diet. Pt has been encouraged to exercise daily. The pt has been advised to call the office if there are any [place] concerns about change in blood pressure readings at home. Obesity-lost 10#- continue diet/exercise Epilepsy-check dilantin level 01/27/2017 Appointment: Leelee Weinstein WPtel: [facility]7 [phone] (30 min) Complex 01/27/2017 Patient [...] Ordaz 12/27/2016 Appointment: Leelee Weinstein WPtel: [phone] [phone] [place] (30 min) Complex 12/27/2016 Patient Education: Patient Medication Summary Completed 12/27/2016 Care Plan: Referral Order SNOMED-CT : 505132424 Pending 12/27/2016 Visit Plan: Rash - pt [...] Completed 10/09/2016 Appointment: [facility] [phone] [phone] [place] (30 min) Complex 10/04/2016 Visit Plan: on the rash on your foot, use benadryl cream mixed with cortisone cream - use a jerica size portion of both Carpal tunnel -wear a carpal tunnel brace at night and a tennis elbow brace during the day use aspercreme on your elbow and wrist at least twice a day 09/09/2016 Appointment: Betty Salamanca WPtel: [facility] (15 min) Moderate 09/09/2016 Patient Education: [...] not improve. 05/31/2016 Appointment: Leelee Weinstein WPtel: [facility]5 [phone] (30 min) Complex 05/31/2016 Patient Education: Patient Medication Summary Completed 05/31/2016 Patient Education: Obesity Completed 05/31/2016 Patient Education: Hypertension Completed 05/31/2016 Appointment: Leelee Weinstein WPtel: [facility]5 [phone] (30 min) Complex 04/01/2016 Visit Plan: Hypertension [...] of plan. 03/29/2016 Appointment: Leelee Weinstein WPtel: [phone] (15 min) Moderate 03/29/2016 Patient Education: Patient Medication Summary Completed 03/29/2016 Patient Education: Hypertension Completed 03/29/2016 Visit Plan: Bilateral PE-hospital follow up-on xarelto-symptoms improving Xxthg-gwzazbafzr-otlekskz-continue symbicort twice daily as directed Hypertension - well controlled - continue with current medications, continue with no added salt diet. Pt has been encouraged to exercise daily. The pt has been advised to call the office if there are any acute concerns about change in blood pressure readings at home. 03/11/2016 Appointment: Leelee Weinstein WPtel: [facility]3 [phone] (30 min) Complex 03/11/2016 Patient [...] allergy spray. 02/23/2016 Appointment: Elsie Mosquera WPtel: [facility]5 [facility] (15 min) Moderate 02/23/2016 Patient Education: Patient Medication Summary Completed 02/23/2016 Patient Education: Obesity Completed 02/23/2016 Visit Plan: Epilepsy - continue with phenytek wound improving 01/16/2016 Appointment: Betty Salamanca WPtel: [facility]7 [facility] (15 min) Moderate 01/16/2016 [...] current anti-epileptic 12/26/2015 Appointment: [facility]el[facility] [phone] [facility] (15 min) Moderate 12/26/2015 Patient Education: Patient [...] symptoms do not resolve 11/20/2015 Appointment: [facility] Weintsein [facility] [phone] [phone] (15 min) Moderate 11/20/2015 Patient Education: [...] in pain. 09/01/2015 Appointment: Leelee Weinstein WPtel: [phone] (30 min) [facility] 09/01/2015 Patient Education: Patient Medication Summary Completed 09/01/2015 Referral: Ady Oswald WPtel:[phone] Referral Completed 08/30/2015 Visit Plan: Hypertension - [...] 08/09/2015 Care Plan: Referral Order SNOMED-CT : [id number] Pending 07/12/2015 Visit Plan: Hypertension - well [...] on flagyl. 11/01/2014 Appointment: Betty Salamanca WPtel: [address] [place], [place] [address] (15 min) Moderate 11/01/2014 Patient Education: Patient [...] - 2014 Appointment: Betty Salamanca [facility]Ptel[facility] [phone] [facility] Follow [facility] 2014 Patient Education: Patient Medication Summary Completed 2014 Patient Education: Hypertension Completed 2014 Care Plan: Referral Order SNOMED-CT : [id number] Ordered 2014 Visit Plan: Hematuria-per patient report-no [...] weight check. 04/26/2014 Appointment: Betty Salamanca WPtel[facility] [phone] [facility] Follow up 04/26/2014 Patient Education: Patient [...] 3.5. 03/29/2014 Appointment: Betty Salamanca [facility]Ptel[facility] [phone] [facility] New Patient 03/29/2014 Patient Education: Patient Medication Summary Completed 03/29/2014 Patient Education: Hypertension Completed 03/29/2014 Referral: Madhu Hall MD WPtel: [address] [place] Referral Completed Referral: Edilson Ordaz [facility] [place] Referral Appointment Requested Referral: Ady Oswald WPtel:[phone] Referral Appointment Requested Instructions Comment . Hypertension [...] in one month for weight check. . Rash - pt is to use [...] up on this patient's medical condition. . Allergies - chronic - recommended pt [...] allergy spray. LABS IN 1 MONTH AT APPT REFER [...] Epilepsy - continue with current anti-epileptic . Hypertension - well controlled - continue [...] size of the lesion, increase in pain. coumadin - when restarting - start on [...] . Bilateral PE-hospital follow up-on xarelto-symptoms improving Qazut-sezfkctplz-yvvkorwn-continue symbicort twice daily as directed Hypertension - [...] treatment of seizure disorder. . Hypertension - elevated today but well [...] to decrease calories and avoid snacking . Epilepsy - continue with phenytek wound improving . Diarrhea - recommended bland diet, low fat diet, start on probiotic, and rehydrate with gatorade-like product. Pt to call if feeling worse, diarrhea becomes bloody, or does not improve with above recommendations. Pt to call for acute worsening of stomach upset or stomach pain. Pt to start on flagyl. . Hypertension - well controlled - continue [...] symptoms uncontrolled-patient verbalized understanding of plan. . URI - Pt advised to increase [...]
--- OUTSIDE RECORDS SUMMARY | 2018-09-06 06:30 | XMS REPORT | CCD ---
Author Author Betty Salamanca Organization [facility] Address [address] [place] [address] Phone Care Team Providers Care Release Engineer Name Role Phone PP Unavailable CCM Unavailable Summary Purpose Interface Exchange Insurance Providers Payer name Policy type / Coverage type Covered republican ID Effective Begin Date Effective End Date Blue Cross Blue [facility] Blue Cross/Blue Shield [id number] Unknown Unknown Family history Father Diagnosis Age At Onset Coronary Artery Disease Unknown Mother Diagnosis Age At Onset Cancer Unknown Cancer Unknown Social History Social History Element Codes Description Effective Dates Number of children Unknown 0 06/26/2015 Employment Unknown 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 [employer] 06/26/[address]: 751647445 Never smoker 06/26/[address]: 640425366 Never drinks alcohol 06/26/2015 Marital status Unknown [place] 04/26/2014 Allergies, Adverse Reactions, Alerts Substance Reaction Codes Entered Date Inactivated Date Status * NO KNOWN DRUG ALLERGIES Unknown 03/29/2014 No Inactive Date Active Past Medical History Illness Codes Condition Status Onset Date Resolved Date Acute laryngopharyngitis ICD-9: 465.0 ICD-10: J06.0 Active 02/22/2016 Unknown Encounter for therapeutic drug level monitoring ICD-9: V58.61 ICD-10: Z51.81 Active 02/02/2015 Unknown Other allergic rhinitis ICD-9: 477.8 ICD-10: J30.89 Active 02/22/2016 Unknown Anemia, unspecified ICD- 9: 285.9 ICD-10: D64.9 Active 10/28/2017 Unknown Cough ICD-9: 786.2 ICD-10: R05 Active 03/10/2016 Unknown Other acute sinusitis ICD- 9: 461.8 ICD-10: J01.80 Active 11/11/2017 Unknown Encounter for screening for malignant neoplasm of prostate ICD-9: V76.44 ICD-10: Z12.5 Active 01/01/2015 Unknown Epilepsy, unspecified, not intractable, without status epilepticus ICD-9: 345.90 ICD-10: G40.909 Active 01/15/2016 Unknown Essential (primary) hypertension ICD-9: 401.9 ICD-10: I10 Active 03/10/2016 Unknown Pain in right wrist ICD- 9: [...] Active 11/19/2015 Unknown Other long term care phlebotomist (current) drug therapy ICD-9: V58.69 ICD-10: Z79.899 [...] Problems Condition Codes Effective Dates Condition Status Acute laryngopharyngitis ICD-9: 465.0 ICD-10: J06.0 02/22/2016 Active Encounter for therapeutic drug level monitoring ICD-9: V58.61 ICD-10: Z51.81 02/02/2015 Active Other allergic rhinitis ICD-9: 477.8 ICD-10: J30.89 02/22/2016 Active Anemia, unspecified ICD- 9: 285.9 ICD-10: D64.9 10/28/2017 Active Cough ICD-9: 786.2 ICD-10: R05 03/10/2016 Active Other acute sinusitis ICD- 9: 461.8 ICD-10: J01.80 11/11/2017 Active Encounter for screening for malignant neoplasm of prostate ICD-9: V76.44 ICD-10: Z12.5 01/01/2015 Active Epilepsy, unspecified, not intractable, without status epilepticus ICD-9: 345.90 ICD-10: G40.909 01/15/2016 Active Essential (primary) hypertension ICD-9: 401.9 ICD-10: I10 03/10/2016 Active Pain in right wrist ICD- 9: [...] Fill Instructions Phenytek 200 mg capsule RxNorm: 368628 Capsule(s) TAKE TWO CAPSULES BY MOUTH DAILY WITH 300 MG CAPSULE TO EQUAL 700 MG TOTAL DAILY 01/28/2018 06/26/2018 Active MUST HAVE BRAND NAME MEDICATION Augmentin 875 mg-125 mg tablet RxNorm: 122150 1 Tablet(s) PO BID 01/28/2018 01/30/2018 Active prednisone 20 mg tablet RxNorm: 228811 2 Tablet(s) PO daily 01/28/2018 02/01/2018 Active Phenytek 300 mg capsule RxNorm: 917513 Capsule(s) TAKE ONE CAPSULE BY MOUTH DAILY WITH TWO 200 MG CAPS TO EQUAL 700 MG 01/28/2018 06/26/2018 Active MUST HAVE BRAND NAME MEDICATION Phenytek 300 mg capsule RxNorm: 654579 Capsule(s) TAKE ONE CAPSULE BY MOUTH DAILY WITH TWO 200 MG CAPS TO EQUAL 700 MG 01/22/2018 01/27/2018 Inactive Xarelto 20 mg tablet RxNorm: 1599121 TAKE ONE TABLET BY MOUTH DAILY 01/19/2018 07/17/2018 Active pantoprazole 40 mg tablet,delayed release RxNorm: 139944 TAKE ONE TABLET BY MOUTH TWICE A DAY AT 7AM AND 9PM 01/06/2018 07/04/2018 Active metoprolol succinate ER 25 mg tablet,extended release 24 hr RxNorm: 638891 Tablet(s) TAKE ONE TABLET BY MOUTH DAILY 12/11/2017 09/06/2018 Active Phenytek 200 mg capsule RxNorm: 812298 TAKE TWO CAPSULES BY MOUTH DAILY WITH 300 MG CAPSULE TO EQUAL 700 MG TOTAL DAILY 12/11/2017 01/27/2018 Inactive cefdinir 300 mg capsule RxNorm: 918843 1 Capsule(s) PO BID 11/14/2017 11/23/2017 Inactive cefdinir 300 mg capsule RxNorm: 638295 1 Capsule(s) PO BID 11/14/2017 11/13/2017 Inactive Phenergan with Codeine Syrup RxNorm: 5-10 Milliliter(s) PO QID as needed cough 11/11/2017 No Stop Date Active Zithromax Z-Kevin 250 mg tablet RxNorm: 813033 1 Tablet(s) PO UD 11/11/2017 No Stop Date Active prednisone 10 mg tablet RxNorm: 361389 Tablet(s) PO UD 11/11/2017 No Stop Date Active 6,5,4,3,2,1 Kenalog 40 mg/mL suspension for injection RxNorm: 1503192 1.5 Milliliter(s) Inj 11/11/2017 11/11/2017 Inactive metoprolol succinate ER 25 mg tablet,extended release 24 hr RxNorm: 635539 TAKE ONE TABLET BY MOUTH DAILY 09/15/2017 12/10/2017 Inactive Phenytek 300 mg capsule RxNorm: 693651 TAKE ONE CAPSULE BY MOUTH DAILY WITH TWO 200 MG CAPS TO EQUAL 700 MG 09/09/2017 01/21/2018 Inactive Phenytek 200 mg capsule RxNorm: 374932 TAKE TWO CAPSULES BY MOUTH DAILY WITH 300 MG CAPSULE TO EQUAL 700 MG TOTAL DAILY 08/26/2017 12/10/2017 Inactive pantoprazole 40 mg tablet,delayed release RxNorm: 239628 TAKE ONE TABLET BY MOUTH TWICE A DAY AT 7AM AND 9PM 08/11/2017 01/05/2018 Inactive Xarelto 20 mg tablet RxNorm: 8613949 Tablet(s) TAKE ONE TABLET BY MOUTH DAILY 06/25/2017 01/18/2018 Inactive metoprolol succinate ER 25 mg tablet,extended release 24 hr RxNorm: 825807 TAKE ONE TABLET BY MOUTH DAILY 06/20/2017 09/14/2017 Inactive Phenytek 200 mg capsule RxNorm: 333037 TAKE TWO CAPSULES BY MOUTH DAILY WITH 300 MG CAPSULE TO EQUAL 700 MG TOTAL DAILY 06/02/2017 08/25/2017 Inactive metoprolol succinate ER 25 mg tablet,extended release 24 hr RxNorm: 582072 TAKE ONE TABLET BY MOUTH DAILY 03/24/2017 06/19/2017 Inactive Phenytek 300 mg capsule RxNorm: 824275 TAKE ONE CAPSULE BY MOUTH DAILY WITH TWO 200 MG CAPS TO EQUAL 700 MG 03/12/2017 09/07/2017 Inactive Phenytek 200 mg capsule RxNorm: 214896 TAKE TWO CAPSULES BY MOUTH DAILY WITH 300 MG CAPSULE TO EQUAL 700 MG TOTAL DAILY 02/03/2017 06/01/2017 Inactive pantoprazole 40 mg tablet,delayed release RxNorm: 542948 TAKE ONE TABLET BY MOUTH TWICE A DAY AT 7AM AND 9PM 01/27/2017 07/25/2017 Inactive Ventolin HFA 90 mcg/actuation aerosol inhaler RxNorm: 364766 INHALE ONE PUFF BY MOUTH EVERY 4 TO 6 HOURS NEEDED 01/13/2017 03/19/2017 Inactive mupirocin 2 % topical ointment RxNorm: 650052 1 Application TOP BID 12/27/2016 01/05/2017 Inactive Xarelto 20 mg tablet RxNorm: 2483395 TAKE ONE TABLET BY MOUTH DAILY 11/28/2016 06/24/2017 Inactive Xarelto 20 mg tablet RxNorm: 6203693 TAKE ONE TABLET BY MOUTH DAILY 10/18/2016 11/27/2016 Inactive prednisone 10 mg tablet RxNorm: 048967 Tablet(s) PO UD 10/16/2016 10/21/2016 Inactive 6,5,4,3,2,1 prednisone 10 mg tablet RxNorm: 489358 Tablet(s) PO UD 10/16/2016 10/15/2016 Inactive 6,5,4,3,2,1 prednisone 20 mg tablet RxNorm: 310946 2 Tablet(s) PO daily 10/09/2016 10/13/2016 Inactive metoprolol succinate ER 25 mg tablet,extended release 24 hr RxNorm: 365766 TAKE ONE TABLET BY MOUTH DAILY 09/26/2016 03/23/2017 Inactive Phenytek 300 mg capsule RxNorm: 039969 TAKE ONE CAPSULE BY MOUTH DAILY WITH TWO 200 MG CAPS TO EQUAL 700 MG 09/17/2016 03/11/2017 Inactive Phenytek 200 mg capsule RxNorm: 364864 TAKE TWO CAPSULES BY MOUTH DAILY WITH 300 MG CAPSULE TO EQUAL 700 MG TOTAL DAILY 09/03/2016 01/30/2017 Inactive Xarelto 20 mg tablet RxNorm: 1538761 TAKE ONE TABLET BY MOUTH DAILY 07/23/2016 10/17/2016 Inactive pantoprazole 40 mg tablet,delayed release RxNorm: 708576 TAKE ONE TABLET BY MOUTH TWICE A DAY AT 7 AM AND 9 PM 07/02/2016 12/28/2016 Inactive Xarelto 20 mg tablet RxNorm: 3289110 1 Tablet(s) PO daily 03/25/2016 07/22/2016 Inactive Symbicort 160 mcg-4.5 mcg/actuation HFA aerosol inhaler RxNorm: 2033925 2 Puff(s) INH BID 03/11/2016 No Stop Date Active Phenytek 200 mg capsule RxNorm: 746845 TAKE TWO CAPSULES BY MOUTH DAILY WITH 300 MG CAPSULE TO EQUAL 700 MG TOTAL DAILY 03/08/2016 09/02/2016 Inactive prednisone 20 mg tablet RxNorm: 232435 2 Tablet(s) PO daily 02/23/2016 02/27/2016 Inactive Ventolin HFA 90 mcg/actuation aerosol inhaler RxNorm: 914352 1 Puff(s) INH Q4-6H as needed 02/23/2016 01/12/2017 Inactive Augmentin 875 mg-125 mg tablet RxNorm: 319071 1 Tablet(s) PO BID 02/23/2016 02/25/2016 Inactive nystatin 100,000 unit/gram topical powder RxNorm: 855327 1 Gram(s) TOP TID 01/16/2016 01/25/2016 Inactive Phenergan-Codeine 6.25 mg-10 mg/5 mL syrup RxNorm: 017921 5-10 Milliliter(s) PO Q6 as needed cough 12/01/2015 12/26/2016 Inactive Zithromax 250 mg tablet RxNorm: 951569 1 Tablet(s) PO daily 11/23/2015 11/26/2015 Inactive Zithromax 250 mg tablet RxNorm: 523246 1 Tablet(s) PO daily 11/23/2015 11/22/2015 Inactive Zithromax Z-Kevin 250 mg tablet RxNorm: 035725 1 Tablet(s) PO UD 11/20/2015 11/24/2015 Inactive zpack Kenalog 40 mg/mL suspension for injection RxNorm: 8525388 1 Milliliter(s) Inj 11/20/2015 11/20/2015 Inactive Coumadin 4 mg tablet RxNorm: 354913 TAKE TWO TABLETS BY MOUTH EVERY EVENING FOR 3 DAYS, THEN TAKE TAKE ONE TABLET BY MOUTH EVERY EVENING THEREAFTER 11/20/2015 03/10/2016 Inactive hydrochlorothiazide 25 mg tablet RxNorm: 470815 TAKE ONE TABLET BY MOUTH DAILY 10/11/2015 03/10/2016 Inactive triamcinolone acetonide 0.025 % topical ointment RxNorm: 1031640 1 Application TOP BID 09/01/2015 No Stop Date Active nystatin 100,000 unit/gram topical cream RxNorm: 785913 1 Gram(s) TOP BID 09/01/2015 09/08/2016 Inactive Phenytek 300 mg capsule RxNorm: 258908 1 Capsule(s) PO daily take with two 200mg tablets to equal 700mg 09/01/2015 03/28/2016 Inactive nystatin 100,000 unit/gram topical powder RxNorm: 923299 1 Application TOP 09/01/2015 09/01/2015 Inactive Anucort-HC 25 mg suppository RxNorm: 5925729 1 Suppository RTL BID x 1 week then as needed 08/09/2015 No Stop Date Active Phenytek 300 mg capsule RxNorm: 827777 1 Capsule(s) PO daily take with two 200mg tablets to equal 700mg 08/02/2015 08/31/2015 Inactive Phenytek 200 mg capsule RxNorm: 588649 Capsule(s) TAKE TWO CAPSULES BY MOUTH DAILY. TAKE WITH 300MG CAPSULE TO EQUAL 700MG TOTAL DAILY. 08/02/2015 02/27/2016 Inactive lorazepam 1 mg tablet RxNorm: 863339 1 Tablet(s) PO QID as needed seizure activity 06/26/2015 07/25/2015 Inactive Phenytek 200 mg capsule RxNorm: 866901 TAKE TWO CAPSULES BY MOUTH DAILY. TAKE WITH 300MG CAPSULE TO EQUAL 700MG TOTAL DAILY. 05/25/2015 07/23/2015 Inactive Phenytek 200 mg capsule RxNorm: 715208 TAKE TWO CAPSULES BY MOUTH DAILY. TAKE WITH 300MG CAPSULE TO EQUAL 700MG TOTAL DAILY. 05/03/2015 05/24/2015 Inactive hydrochlorothiazide 25 mg tablet RxNorm: 670002 TAKE ONE TABLET BY MOUTH DAILY 03/27/2015 09/22/2015 Inactive hydrochlorothiazide 25 mg tablet RxNorm: 825226 TAKE ONE TABLET BY MOUTH DAILY 03/27/2015 09/22/2015 Inactive Phenytek 300 mg capsule RxNorm: 743091 1 Capsule(s) PO daily take with 2 200mg tablets to equal 700mg 01/04/2015 08/01/2015 Inactive Coumadin 1 mg tablet RxNorm: 943918 TAKE 1 TABLET BY MOUTH DOCTOR DIRECTED 12/19/2014 03/18/2015 Inactive Coumadin 4 mg tablet RxNorm: 460270 1 Tablet(s) PO QPM when starting, pt to take 4mg two pills nightly x 3 nights then take one pill daily) 12/05/2014 06/25/2015 Inactive Phenytek 200 mg capsule RxNorm: 405107 TAKE TWO CAPSULES BY MOUTH DAILY. TAKE WITH 300MG CAPSULE TO EQUAL 700MG TOTAL DAILY. 11/08/2014 05/02/2015 Inactive metronidazole 500 mg tablet RxNorm: 993134 1 Tablet(s) PO TID 11/01/2014 11/10/2014 Inactive hydrochlorothiazide 25 mg tablet RxNorm: 907479 1 Tablet(s) PO daily 2014 03/26/2015 Inactive Coumadin 1 mg tablet RxNorm: 475369 TAKE 1 TABLET BY MOUTH DOCTOR DIRECTED 08/19/2014 10/31/2014 Inactive Coumadin 1 mg tablet RxNorm: 720307 1 Tablet(s) PO as doctor directed 07/21/2014 08/18/2014 Inactive Coumadin 1 mg tablet RxNorm: 135634 1 Tablet(s) PO as doctor directed 07/21/2014 07/20/2014 Inactive hydrochlorothiazide 12.5 mg tablet RxNorm: 129263 1 Tablet(s) PO daily 06/15/2014 08/28/2014 Inactive Coumadin 5 mg tablet RxNorm: 680257 1 Tablet(s) PO QPM 05/12/2014 10/31/2014 Inactive check lab in 2 weeks Bactrim DS 800 mg-160 mg tablet RxNorm: 764818 1 Tablet(s) PO BID 05/10/2014 05/09/2014 Inactive start after UA given to lab Bactrim DS 800 mg-160 mg tablet RxNorm: 092494 1 Tablet(s) PO BID 05/10/2014 05/16/2014 Inactive start after UA given to lab today Keflex 500 mg capsule RxNorm: 187092 1 Capsule(s) PO TID 04/26/2014 05/05/2014 Inactive Phenytek 300 mg capsule RxNorm: 358125 1 Capsule(s) PO daily 03/29/2014 03/28/2014 Inactive Phenytek 300 mg capsule RxNorm: 581037 1 Capsule(s) PO daily take with 2 200mg tablets to equal 700mg 03/29/2014 10/24/2014 Inactive Phenytek 200 mg capsule RxNorm: 016858 2 Capsule(s) PO daily take with a 300mg capsule to equal 700mg daily 03/29/2014 10/24/2014 Inactive Coumadin 4 mg tablet RxNorm: 912987 1 Tablet(s) PO QPM when starting, pt to take 4mg two pills nightly x 3 nights then take one pill daily) 03/29/2014 05/11/2014 Inactive hydrochlorothiazide 12.5 mg tablet RxNorm: 164298 1 Tablet(s) PO daily 03/29/2014 06/14/2014 Inactive Aspirin Low Dose 81 mg tablet,delayed release RxNorm: 778062 1 Tablet(s) PO daily No Start Date Active Phenergan-Codeine 6.25 mg-10 mg/5 mL syrup RxNorm: 890888 5-10 Milliliter(s) PO Q6 as needed cough No Start Date 11/30/2015 Inactive pantoprazole 40 mg tablet,delayed release RxNorm: 279204 1 Tablet(s) PO daily No Start Date 07/01/2016 Inactive Xarelto 20 mg tablet RxNorm: 4981896 Tablet(s) PO No Start Date 03/24/2016 Inactive 15mg BID x 21 days then 20mg daily lorazepam 0.5 mg tablet RxNorm: 300261 1 Tablet(s) PO as doctor directed for seizures No Start Date 06/25/2015 Inactive Symbicort 160 mcg-4.5 mcg/actuation HFA aerosol inhaler RxNorm: 4102879 inhalation No Start Date 03/10/2016 Inactive Phenytek oral RxNorm: 224499 oral No Start Date 03/28/2014 Inactive metoprolol succinate ER 25 mg tablet,extended release 24 hr RxNorm: 559001 1 Tablet(s) PO daily No Start Date 09/25/2016 Inactive aspirin 325 mg tablet,delayed release RxNorm: 663449 1 Tablet(s) PO QHS No Start Date 03/04/2016 Inactive Medication Administered Medication Codes Instructions Start Date Status Kenalog 40 mg/mL suspension for injection RxNorm: 3234481 1.5Milliliter 11/11/2017 No longer Active Kenalog 40 mg/mL suspension for injection RxNorm: 8032336 1Milliliter 11/20/2015 No longer Active Immunizations Vaccine Codes Date Status Tetanus, Diptheria, Pertussis CVX: 113 09/10/2017 completed Tetanus/Diptheria CVX: 113 09/10/2017 completed Influenza CVX: 141 04/23/2016 completed Assessments Condition Codes Effective Dates Other allergic rhinitis ICD-10: J30.89 ICD-9: 477.8 01/28/2018 Acute laryngopharyngitis ICD-10: J06.0 ICD-9: 465.0 01/28/2018 Encounter for therapeutic drug level monitoring ICD-10: Z51.81 ICD-9: V58.61 01/28/2018 Anemia, unspecified ICD-10: D64.9 ICD-9: 285.9 11/25/2017 Cough ICD-10: R05 ICD-9: 786.2 11/11/2017 Other acute sinusitis ICD-10: J01.80 ICD-9: 461.8 11/11/2017 Epilepsy, unspecified, not intractable, without status epilepticus ICD-10: G40.909 ICD-9: 345.90 10/20/2017 Essential (primary) hypertension ICD-10: I10 ICD-9: 401.9 10/20/2017 Encounter for screening for malignant neoplasm of [...] Visit Reason For Visit Effective Dates Notes sinus congestion 01/28/2018 sinus congestion 11/11/2017 weight [...] Item Item Code Result Date Comp Metabolic Yyg282 NA 141 mEq/L 09/09/2016 Comp Metabolic Ote797 K 3.8 mEq/L 09/09/2016 Comp Metabolic Ord203 CL 108 mEq/L 09/09/2016 Comp Metabolic Hrg774 CO2 24.0 mEq/L 09/09/2016 Comp Metabolic Wyw338 ANION GAP 13 09/09/2016 Comp Metabolic Pbe147 GLUCOSE 134 mg/dL 09/09/2016 Comp Metabolic Xul979 Creat 0.8 mg/dL 09/09/2016 Comp Metabolic Geu582 eGFR 113 ml/min/1.73m2 09/09/2016 Comp Metabolic Jsr827 BUN 16 mg/dL 09/09/2016 Comp Metabolic Rqc055 B/C Ratio 21.1 Ratio 09/09/2016 Comp Metabolic Gto521 CALCIUM 8.8 mg/dL 09/09/2016 Comp Metabolic Glh811 ALK PHOS 111 U/L 09/09/2016 Comp Metabolic Fiz837 AST(SGOT) 16 U/L 09/09/2016 Comp Metabolic Het181 ALT(SGPT) 16 U/L 09/09/2016 Comp Metabolic Imh934 BILI T 0.4 mg/dL 09/09/2016 Comp Metabolic Pdz256 ALBUMIN 3.8 g/dL 09/09/2016 Comp Metabolic Vcj175 TPRO 7.0 g/dL 09/09/2016 Comp Metabolic Cvb308 GLOB 3.2 g/dL 09/09/2016 Comp Metabolic Yzw449 A/G Ratio 1.2 Ratio 09/09/2016 Comp Metabolic Xyc968 Osmo 284 mOsmo 09/09/2016 Cbc With Differential Ord2 WBC 6.45 K/ul 09/09/2016 Cbc With Differential Ord2 RBC 4.32 M/ul 09/09/2016 Cbc With Differential Ord2 HGB 14.1 g/dl 09/09/2016 Cbc With Differential Ord2 Neut% 59.4 % 09/09/2016 Cbc With Differential Ord2 HCT 41.7 % 09/09/2016 Cbc With Differential Ord2 MCV 96.5 fl 09/09/2016 Cbc With Differential Ord2 Lymph% 28.4 % 09/09/2016 Cbc With Differential Ord2 MCH 32.6 pg 09/09/2016 Cbc With Differential Ord2 [place]% 10.2 % 09/09/2016 Cbc With Differential Ord2 [...] 1.83 K/ul 09/09/2016 Cbc With Differential Ord2 [place] ABS# 0.7 K/ul 09/09/2016 Cbc With Differential [...] 34.3 pg 12/26/2015 Cbc With Differential Ord2 [place]% 8.7 % 12/26/2015 Cbc With Differential Ord2 Eos% 1.4 % 12/26/2015 Cbc With Differential Ord2 MCHC 34.5 pg 12/26/2015 Cbc With Differential Ord2 Baso% 0.4 % 12/26/2015 Cbc With Differential Ord2 PLT 165 K/ul 12/26/2015 Cbc With Differential Ord2 RDW 14.1 % 12/26/2015 Cbc With Differential Ord2 Neut ABS# 5.14 K/ul 12/26/2015 Cbc With Differential Ord2 Lymph ABS# 1.71 K/ul 12/26/2015 Cbc With Differential Ord2 [place] ABS# 0.7 K/ul 12/26/2015 Cbc With Differential Ord2 Eos ABS# 0.1 K/ul 12/26/2015 Cbc With Differential Ord2 Baso ABS# 0.0 K/ul 12/26/2015 Tsh Ord6 hTSH II 2.81 uIU/mL 12/26/2015 Dilantin Ord7 DILANTIN 17.3 UG/ML 12/26/2015 Comp Metabolic Sgx346 NA 137 mEq/L 12/26/2015 Comp Metabolic Fog589 K 4.3 mEq/L 12/26/2015 Comp Metabolic Yeo795 CL 101 mEq/L 12/26/2015 Comp Metabolic Nkj150 CO2 27.0 mEq/L 12/26/2015 Comp Metabolic Yqc156 ANION GAP 13 12/26/2015 Comp Metabolic Bpd656 GLUCOSE 128 mg/dL 12/26/2015 Comp Metabolic Apo767 Creat 0.8 mg/dL 12/26/2015 Comp Metabolic Xwl111 eGFR 104 ml/min/1.73m2 12/26/2015 Comp Metabolic Pcm345 BUN 16 mg/dL 12/26/2015 Comp Metabolic Rag148 B/C Ratio 19.5 Ratio 12/26/2015 Comp Metabolic Uum670 CALCIUM 9.2 mg/dL 12/26/2015 Comp Metabolic Cvl666 ALK PHOS 107 U/L 12/26/2015 Comp Metabolic Obc435 AST(SGOT) 15 U/L 12/26/2015 Comp Metabolic Xvu399 ALT(SGPT) 15 U/L 12/26/2015 Comp Metabolic Vfw605 BILI T 0.4 mg/dL 12/26/2015 Comp Metabolic Dbv694 ALBUMIN 4.0 g/dL 12/26/2015 Comp Metabolic Woo597 TPRO 7.6 g/dL 12/26/2015 Comp Metabolic Dyf911 GLOB 3.6 g/dL 12/26/2015 Comp Metabolic Vgf406 A/G Ratio 1.1 Ratio 12/26/2015 Comp Metabolic Uku876 Osmo 277 mOsmo 12/26/2015 Dilantin Ord7 DILANTIN 16.5 UG/ML 09/15/2015 Dilantin Ord7 DILANTIN 17.2 UG/ML 09/08/2015 Dilantin Ord7 DILANTIN 22.3 UG/ML 09/01/2015 Review of Systems System Result Effective Dates Constitutional recent illness 01/28/2018 Constitutional chills 01/28/2018 [...] Result Effective Dates Notes Full Exam - ENT Constitutional general appearance [...] J3301 11/11/2017 OCCULT BLOOD FECES CPT- 4: 23351 10/28/2017 TRIAMCINOLONE ACET INJ NOS CPT-4: J3301 11/20/2015 Vital Signs Date Vital 01/28/2018 Blood Pressure 1: 140/80 Code: 8480-6 BMI: 48.3 Code: 94155-1 Heart Rate 1: 78 bpm Height: 5'11" SpO2: 94% Temperature: 36.7 (C) / 98.1 (F) Weight: 346 lbs 11/11/2017 Blood Pressure 1: 144/82 Code: 8480-6 BMI: 47.1 Code: 39384-2 Heart Rate 1: 73 bpm Height: 5'11" SpO2: 94% Temperature: 36.9 (C) / 98.5 (F) Weight: 338 lbs 10/17/2017 Blood Pressure 1: 136/78 Code: 8480-6 BMI: 47.1 Code: 53080-9 Heart Rate 1: 82 bpm Height: 5'11" SpO2: 96% Weight: 338 lbs 06/06/2017 Blood Pressure 1: 138/76 Code: 8480-6 BMI: 47.4 Code: 16682-5 Heart Rate 1: 76 bpm Height: 5'11" SpO2: 96% Weight: 340 lbs 04/11/2017 Blood Pressure 1: 142/80 Code: 8480-6 Heart Rate 1: 79 bpm Height: 5'11" SpO2: 96% 01/27/2017 Blood Pressure 1: 146/86 Code: 8480-6 BMI: 47.1 Code: 80591-4 Heart Rate 1: 97 bpm Height: 5'11" SpO2: 95% Weight: 338 lbs 12/27/2016 Blood Pressure 1: 154/74 Code: 8480-6 BMI: 48.5 Code: 19676-5 Heart Rate 1: 82 bpm Height: 5'11" SpO2: 96% Weight: 348 lbs 10/09/2016 Blood Pressure 1: 160/82 Code: 8480-6 BMI: 47.4 Code: 48011-2 Heart Rate 1: 77 bpm Height: 5'11" SpO2: 96% Weight: 340 lbs 09/09/2016 Blood Pressure 1: 140/80 Code: 8480-6 Heart Rate 1: 88 bpm Height: 5'11" SpO2: 96% Weight: 05/31/2016 Blood Pressure 1: 126/78 Code: 8480-6 BMI: 46.3 Code: 52950-8 Heart Rate 1: 75 bpm Height: 5'11" SpO2: 96% Weight: 332 lbs 03/29/2016 Blood Pressure 1: 146/78 Code: 8480-6 Heart Rate 1: 78 bpm Height: 5'11" SpO2: 97% Weight: 03/11/2016 Blood Pressure 1: 136/86 Code: 8480-6 BMI: 44.4 Code: 51715-2 Heart Rate 1: 77 bpm Height: 5'11" SpO2: 96% Weight: 318 lbs 02/23/2016 Blood Pressure 1: 146/94 Code: 8480-6 BMI: 44.4 Code: 64472-4 Heart Rate 1: 90 bpm Height: 5'11" SpO2: 93% Weight: 318 lbs 01/16/2016 Blood Pressure 1: 140/86 Code: 8480-6 BMI: 44.6 Code: 36957-2 Heart Rate 1: 75 bpm Height: 5'11" SpO2: 96% Weight: 320 lbs 12/26/2015 Blood Pressure 1: 130/78 Code: 8480-6 BMI: 43.7 Code: 28456-6 Heart Rate 1: 96 bpm Height: 5'11" SpO2: 98% Weight: 313 lbs 11/20/2015 Blood Pressure 1: 137/92 Code: 8480-6 Heart Rate 1: 84 bpm Height: SpO2: 98% Temperature: 36.7 (C) / 98.0 (F) Weight: 09/01/2015 Blood Pressure 1: 148/88 Code: 8480-6 BMI: 43.8 Code: 63253-4 Heart Rate 1: 73 bpm Height: 5'11" SpO2: 97% Weight: 314 lbs 08/09/2015 Blood Pressure 1: 138/78 Code: 8480-6 BMI: 45.0 Code: 98393-8 Heart Rate 1: 75 bpm Height: 5'11" SpO2: 98% Weight: 323 lbs 06/26/2015 Blood Pressure 1: 134/80 Code: 8480-6 BMI: 46.3 Code: 00777-7 Heart Rate 1: 78 bpm Height: 5'11" SpO2: 96% Weight: 332 lbs 11/18/2014 Blood Pressure 1: 130/78 Code: 8480-6 BMI: 44.4 Code: 39022-7 Heart Rate 1: 66 bpm Height: 5'11" SpO2: 98% Weight: 318 lbs 11/01/2014 Blood Pressure 1: 130/78 Code: 8480-6 BMI: 44.5 Code: 22575-9 Heart Rate 1: 78 bpm Height: 5'11" SpO2: 97% Weight: 319 lbs 10/27/2014 Blood Pressure 1: 152/88 Code: 8480-6 BMI: 43.9 Code: 46896-3 Heart Rate 1: 91 bpm Height: 5'11" SpO2: 98% Weight: 315 lbs 2014 Blood Pressure 1: 140/82 Code: 8480-6 BMI: 44.9 Code: 42827-9 Heart Rate 1: 78 bpm Height: 5'11" Weight: 322 lbs 05/05/2014 Blood Pressure 1: 142/88 Code: 8480-6 BMI: 40.9 Code: 29913-7 Heart Rate 1: 64 bpm Height: 5'11" Temperature: 37.3 (C) / 99.1 (F) Weight: 293 lbs 04/26/2014 Blood Pressure 1: 142/82 Code: 8480-6 BMI: 40.2 Code: 79326-6 Heart Rate 1: 64 bpm Height: 5'11" Weight: 288 lbs 03/29/2014 Blood Pressure 1: 138/84 Code: 8480-6 BMI: 39.3 Code: 34035-7 Heart Rate 1: 84 bpm Height: 5'11" Weight: 282 lbs Functional Status No Functional Status data History of Present Illness Symptom Name Status Result Effective Date Notes Location frontal sinuses 01/28/2018 None Quality fullness [...] Performer Location Codes Date EST. PATIENT, LEVEL III Diagnosis: Acute laryngopharyngitis[ICD10: J06.0] Diagnosis: Other allergic rhinitis[ICD10: J30.89] Diagnosis: Encounter for therapeutic drug level monitoring[ICD10: Z51.81] Elsie Salamanca MD, [facility] CPT-4: 47867 01/28/2018 [id number] EST. PATIENT, LEVEL III Diagnosis: Other acute sinusitis[ICD10: J01.80] Diagnosis: Other allergic rhinitis[ICD10: J30.89] Diagnosis: Cough[ICD10: R05] [facility] CPT-4: 58512 11/11/2017 [id number] EST. PATIENT, LEVEL IV Diagnosis: Essential (primary) hypertension[ICD10: I10] Diagnosis: Epilepsy, unspecified, not intractable, without status epilepticus[ICD10: G40.909] [facility] CPT-4: 65098 10/17/2017 36024 EST. PATIENT, LEVEL IV Diagnosis: Essential (primary) hypertension[ICD10: I10] Diagnosis: Epilepsy, unspecified, not intractable, without status epilepticus[ICD10: G40.909] Elsie Salamanca MD, [facility] CPT-4: 51570 06/06/2017 [id number] EST. PATIENT, LEVEL IV Diagnosis: Essential (primary) hypertension[ICD10: I10] Diagnosis: Epilepsy, unspecified, not intractable, without status epilepticus[ICD10: G40.909] Elsie Salamanca MD, [facility] CPT-4: 46799 04/11/2017 ([id number]) 04346 EST. PATIENT, LEVEL III Diagnosis: Essential (primary) hypertension[ICD10: I10] Diagnosis: Epilepsy, unspecified, not intractable, without status epilepticus[ICD10: G40.909] Leelee Salamanca MD, [facility] CPT-4: 80650 01/27/2017 ([id number]) 31059 EST. PATIENT, LEVEL IV Diagnosis: Essential (primary) hypertension[ICD10: I10] Diagnosis: Epilepsy, unspecified, not intractable, without status epilepticus[ICD10: G40.909] Diagnosis: Pain in right wrist[ICD10: M25.531] Leelee Salamanca MD, [facility] CPT-4: 20115 12/27/2016 53579 EST. PATIENT, LEVEL III Diagnosis: Rash and other nonspecific skin eruption[ICD10: R21] Elsie Salamanca MD, [facility] CPT-4: 71908 10/09/2016 ([id number]) 76083 EST. PATIENT, LEVEL III Diagnosis: Carpal tunnel syndrome, right upper limb[ICD10: G56.01] Diagnosis: Olecranon bursitis, right elbow[ICD10: M70.21] Betty Salamanca MD, [facility] CPT-4: 06579 09/09/2016 ([id number]) 86234 EST. PATIENT, LEVEL III Diagnosis: Essential (primary) hypertension[ICD10: I10] Diagnosis: Low back pain[ICD10: M54.5] Leelee Salamanca MD, [facility] CPT-4: 83496 05/31/2016 ([id number]) 59218 EST. PATIENT, LEVEL III Diagnosis: Essential (primary) hypertension[ICD10: I10] Diagnosis: Slow transit constipation[ICD10: K59.01] Leelee Salamanca MD, [facility] CPT-4: 94999 03/29/2016 ([id number]) 87117 EST. 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 PATIENT, LEVEL III Diagnosis: Acute laryngopharyngitis[ICD10: J06.0] Diagnosis: Other allergic rhinitis[ICD10: J30.89] Diagnosis: Cough[ICD10: R05] Diagnosis: Wheezing[ICD10: R06.2] Elsie Salamanca MD, [facility] CPT-4: 36847 02/23/2016 ([id number]) 25089 EST. PATIENT, LEVEL III Diagnosis: Epilepsy, unspecified, not intractable, without status epilepticus[ICD10: G40.909] Betty Salamanca MD, [facility] CPT-4: 01064 01/16/2016 ([id number]) 93688 EST. PATIENT, LEVEL IV Diagnosis: Essential (primary) hypertension[ICD10: I10] Diagnosis: Morbid (severe) obesity due to excess calories[ICD10: E66.01] Diagnosis: Epilepsy, unspecified, not intractable, without status epilepticus[ICD10: G40.909] Betty Salamanca MD, [facility] CPT-4: 21929 12/26/2015 ([id number]) 40918 EST. PATIENT, LEVEL III Diagnosis: Allergic rhinitis due to pollen[ICD10: J30.1] Diagnosis: Acute upper respiratory infection, unspecified[ICD10: J06.9] Leelee Salamanca MD, [facility] CPT-4: 77554 11/20/2015 89371 EST. PATIENT, LEVEL IV Diagnosis: Other long term care phlebotomist (current) drug therapy[ICD10: Z79.899] Diagnosis: Candidiasis of skin and nail[ICD10: B37.2] Elsie Salamanca MD, [facility] CPT-4: 63891 09/01/2015 ([id number]) 70724 EST. PATIENT, LEVEL IV Diagnosis: Epilepsy, unspecified, not intractable, without status epilepticus[ICD10: G40.909] Diagnosis: Essential (primary) hypertension[ICD10: I10] Diagnosis: First degree hemorrhoids[ICD10: K64.0] Diagnosis: Low back pain[ICD10: M54.5] Betty Salamanca MD, [facility] CPT-4: 84822 08/09/2015 ([id number]) 13673 EST. PATIENT, LEVEL IV Diagnosis: Essential (primary) hypertension[ICD10: I10] Diagnosis: Morbid (severe) obesity due to excess calories[ICD10: E66.01] Diagnosis: Epilepsy, unspecified, not intractable, without status epilepticus[ICD10: G40.909] Betty Salamanca MD, [facility] CPT-4: 95751 06/26/2015 ([id number]) 26150 EST. PATIENT, LEVEL IV Diagnosis: ESSENTIAL HYPERTENSION[ICD9: 401.9] Diagnosis: Small bowel obstruction[ICD9: 560.9] Diagnosis: Hospital discharge follow-up[ICD9: V67.59] Betty Salamanca MD, [facility] CPT-4: 27895 11/18/2014 ([id number]) 74841 EST. PATIENT, LEVEL III Diagnosis: Diarrhea[ICD9: 787.91] Diagnosis: Abdominal pain[ICD9: 789.00] Betty Salamanca MD, [facility] CPT-4: 93060 11/01/2014 ([id number]) 56496 EST. PATIENT, LEVEL III Diagnosis: ESSENTIAL HYPERTENSION[ICD9: 401.9] Diagnosis: Diarrhea[ICD9: 787.91] Leelee Salamanca MD, [facility] CPT-4: 30125 10/27/2014 ([id number]) 71512 EST. PATIENT, LEVEL IV Diagnosis: Factor V Leiden mutation[ICD9: 289.81] Diagnosis: Hx of deep venous thrombosis[ICD9: V12.51] Diagnosis: ESSENTIAL HYPERTENSION[ICD9: 401.9] Diagnosis: OBESITY[ICD9: 278.00] [facility] CPT-4: 93814 2014 ([id number]) 14355 EST. PATIENT, LEVEL III Diagnosis: Hematuria[ICD9: 599.70] Diagnosis: LONG-TERM USE ANTICOAGUL[ICD9: V58.61] [facility] CPT-4: 83520 05/05/2014 ([id number]) 10391 EST. PATIENT, LEVEL IV Diagnosis: ESSENTIAL HYPERTENSION[ICD9: 401.9] Diagnosis: LONG-TERM USE ANTICOAGUL[ICD9: V58.61] Diagnosis: MORBID OBESITY[ICD9: 278.01] Diagnosis: Abscess and cellulitis[ICD9: 682.9] [facility] CPT- 4: 84776 04/26/2014 ([id number]) OFFICE VISIT, NEW - LEVEL 4 Diagnosis: ESSENTIAL HYPERTENSION[ICD9: 401.9] Diagnosis: LONG-TERM USE ANTICOAGUL[ICD9: V58.61] Betty Salamanca MD, [facility] CPT-4: 12483 03/29/2014 Plan of Care Planned Activity Notes Codes Status Date Visit Plan: URI - Pt advised to [...] allergy spray. 01/28/2018 Appointment: Elsie Mosquera WPtel: [address] [place], [place] [phone] (15 min) Moderate 01/28/2018 Patient Education: Patient [...] allergy spray. 11/11/2017 Appointment: Elsie Mosquera WPtel: [facility] (15 min) Moderate 11/11/2017 Patient Education: [...] weight check. 10/17/2017 Appointment: Elsie Mosquera WPtel: [phone] [facility] (15 min) Moderate 10/17/2017 Patient Education: Patient Medication Summary Completed 10/17/2017 Appointment: Elsie Mosquera WPtel: [phone] [facility] (15 min) Moderate 10/07/2017 Care Plan: BMI Above normal followup SELF-MGMT EDUC & TRAIN 1 PT Pending 06/09/2017 Visit Plan: Hypertension - improved - continue with current medications, continue with no added salt diet. Pt has been encouraged to exercise daily. The pt has been advised to call the office if there are any [place] concerns about change in blood pressure readings at home. Epilepsy- controlled, no changes, continue to monitor Obesity - chronic issue with this patient. The pt has been counseled about diet changes, calorie restriction, and need to exercise. Pt will RTC in one month for weight check. 06/06/2017 Appointment: El[facility] Mosquera [facility]el[facility] [phone] [facility] [place] (30 min) Complex 06/06/2017 Patient Education: [...] the office if there are any [place] concerns about change in blood pressure readings at home. Epilepsy- controlled, no changes, continue to monitor Obesity - chronic issue with this patient. The pt has been counseled about diet changes, calorie restriction, and need to exercise. Pt will RTC in one month for weight check. 04/11/2017 Appointment: El[facility] Mosquera [facility]el[facility] [phone] [facility] (30 min) Complex 04/11/2017 Patient Education: Patient Medication Summary Completed 04/11/2017 Patient Education: Obesity Completed 04/11/2017 Appointment: Elsie Mosquera WPtel: Formerly named [facility] (30 min) Complex 04/01/2017 Visit Plan: Hypertension - improved - continue with current medications, continue with no added salt diet. Pt has been encouraged to exercise daily. The pt has been advised to call the office if there are any [place] concerns about change in blood pressure readings at home. Obesity-lost 10#- continue diet/exercise Epilepsy-check dilantin level 01/27/2017 Appointment: Leelee Weinstein WPtel: [address] [phone] (30 min) Complex 01/27/2017 Patient Education: Patient [...] Dr Ordaz 12/27/2016 Appointment: Leelee Weinstein WPtel: [phone] [phone] [place] (30 min) Complex 12/27/2016 Patient Education: Patient Medication Summary Completed 12/27/2016 Care Plan: Referral Order SNOMED-CT : [id number] Pending 12/27/2016 Visit Plan: Rash - pt [...] Obesity Completed 10/09/2016 Appointment: Leelee Weinstein WPtel: Former[facility] named [phone] [place] (30 min) Complex 10/04/2016 Visit Plan: on the rash on your foot, use benadryl cream mixed with cortisone cream - use a jerica size portion of both Carpal tunnel -wear a carpal tunnel brace at night and a tennis elbow brace during the day use aspercreme on your elbow and wrist at least twice a day 09/09/2016 Appointment: Betty Salamanca WPtel: Formerly named [facility] (15 min) Moderate 09/09/2016 Patient Education: Patient [...] improve. 05/31/2016 Appointment: Lee[facility] Weinstein [facility]el[facility] [phone] [phone] [place] (30 min) Complex 05/31/2016 Patient Education: Patient Medication Summary Completed 05/31/2016 Patient Education: Obesity Completed 05/31/2016 Patient Education: Hypertension Completed 05/31/2016 Appointment: Leelee Weinstein WPtel: [phone] [phone] [place] (30 min) Complex 04/01/2016 Visit Plan: [...] plan. 03/29/2016 Appointment: Leelee Weinstein WPtel: [phone] [phone] (15 min) Moderate 03/29/2016 Patient Education: Patient Medication Summary Completed 03/29/2016 Patient Education: Hypertension Completed 03/29/2016 Visit Plan: Bilateral -hospital follow up-on xarelto-symptoms improving Rywob-ffxruszsks-lzaiwvbr-continue symbicort twice daily as directed Hypertension - well controlled - continue with current medications, continue with no added salt diet. Pt has been encouraged to exercise daily. The pt has been advised to call the office if there are any acute concerns about change in blood pressure readings at home. 03/11/2016 Appointment: Leelee Weinstein WPtel: [phone] [phone] (30 min) Complex 03/11/2016 Patient Education: [...] spray. 02/23/2016 Appointment: El[facility] Mosquera [facility]Ptel[facility] [phone] [facility] (15 min) Moderate 02/23/2016 Patient Education: Patient Medication Summary Completed 02/23/2016 Patient Education: Obesity Completed 02/23/2016 Visit Plan: Epilepsy - continue with phenytek wound improving 01/16/2016 Appointment: Betty Salamanca WPtel: Formerly named [facility] (15 min) Moderate 01/16/2016 Patient Education: Patient [...] current anti-epileptic 12/26/2015 Appointment: Betty Salamanca WPtel: Formerly named [facility] (15 min) Moderate 12/26/2015 Patient Education: Patient [...] not resolve 11/20/2015 Appointment: Leelee Weinstein WPtel: Former[facility] named [phone] (15 min) Moderate 11/20/2015 Patient Education: [...] in pain. 09/01/2015 Appointment: Leelee Weinstein WPtel: Formerly named [phone] (30 min) Complex 09/01/2015 Patient Education: Patient Medication Summary Completed 09/01/2015 Referral: Ady Oswald WPtel:[phone] Referral Completed 08/30/2015 Visit Plan: Hypertension - [...] 08/09/2015 Care Plan: Referral Order SNOMED-CT : [id number] Pending 07/12/2015 Visit Plan: Hypertension - well [...] flagyl. 11/01/2014 Appointment: Betty Salamanca [facility]Ptel: [phone] [facility] (15 min) Moderate 11/01/2014 Patient Education: Patient [...] closely - 2014 Appointment: Betty Salamanca WPtel: [address] [place] [address] Follow up 2014 Patient Education: Patient Medication Summary Completed 2014 Patient Education: Hypertension Completed 2014 Care Plan: Referral Order SNOMED-CT : [id number] Ordered 2014 Visit Plan: Hematuria-per patient report-no [...] weight check. 04/26/2014 Appointment: Betty Salamanca WPtel: [address] [place] [address] Follow up 04/26/2014 Patient Education: Patient Medication [...] and 3.5. 03/29/2014 Appointment: Betty Salamanca WPtel: [address] [place] [address] New Patient 03/29/2014 Patient Education: Patient Medication Summary Completed 03/29/2014 Patient Education: Hypertension Completed 03/29/2014 Referral: Madhu Hall MD WPtel: [address] [phone] [place] Referral Completed Referral: Edilson Ordaz [facility] [place] Referral Appointment Requested Referral: Ady Oswald WPtel:[phone] Referral Appointment Requested Instructions Comment . URI - Pt advised to increase [...] diet/exercise Epilepsy-check dilantin level . Hypertension - well controlled - continue [...] of the lesion, increase in pain. . Diarrhea - recommended bland diet, low [...] INR is between 2.0 and 3.5. . Allergies - chronic - recommended pt [...] symptoms do not resolve . Hypertension - continue with current medications, [...] month for weight check. . Hypertension - well controlled - continue [...] follow up on this patient's medical condition. on the rash on your foot, use [...] if symptoms uncontrolled-patient verbalized understanding of plan. weight loss goal of 1/2 pound a [...] RTC in one month for weight check. Repeat dilantin level in august . Hypertension [...] no change in medications. . Hypertension - elevated today but well [...] . Bilateral PE-hospital follow up-on xarelto-symptoms improving Hoxsg-kkatqhsloe-dqahgfyb-continue symbicort twice daily as directed Hypertension - well controlled - continue with current medications, continue with no added salt diet. Pt has been encouraged to exercise daily. The pt has been advised to call the office if there are any acute concerns about change in blood pressure readings at home.
--- OUTSIDE RECORDS SUMMARY | 2018-09-06 06:34 | XMS REPORT | CCD ---
Author Author [facility] Organization [facility] Address [address] [place] [address] Phone Care Team Providers Care Cutter Banana Room Name Role Phone PP Unavailable CCM Unavailable Summary Purpose Interface Exchange Insurance Providers Payer name Policy type / Coverage type Covered democrat ID Effective Begin Date Effective End Date Blue Cross Blue [facility] Blue Cross/Blue Shield [id number] Unknown Unknown Family history Father Diagnosis Age At Onset Coronary Artery Disease Unknown Mother Diagnosis Age At Onset Cancer Unknown Cancer Unknown Social History Social History Element Codes Description Effective Dates Number of children Unknown 0 06/26/2015 Employment Unknown 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 [employer] 06/26/[address]: 306121779 Never smoker 06/26/[address]: 536501405 Never drinks alcohol 06/26/2015 Marital status Unknown [...] ICD-10: J30.1 Active 11/19/2015 Unknown 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 ICD-9: V58.69 ICD-10: [...] Fill Instructions Phenytek 200 mg capsule RxNorm: 062162 Capsule(s) TAKE TWO CAPSULES BY MOUTH DAILY WITH 300 MG CAPSULE TO EQUAL 700 MG TOTAL DAILY 01/28/2018 06/26/2018 Active MUST HAVE BRAND NAME MEDICATION Augmentin 875 mg-125 mg tablet RxNorm: 540520 1 Tablet(s) PO BID 01/28/2018 01/30/2018 Active prednisone 20 mg tablet RxNorm: 518936 2 Tablet(s) PO daily 01/28/2018 02/01/2018 Active Phenytek 300 mg capsule RxNorm: 587839 Capsule(s) TAKE ONE CAPSULE BY MOUTH DAILY WITH TWO 200 MG CAPS TO EQUAL 700 MG 01/28/2018 06/26/2018 Active MUST HAVE BRAND NAME MEDICATION Phenytek 300 mg capsule RxNorm: 582828 Capsule(s) TAKE ONE CAPSULE BY MOUTH DAILY WITH TWO 200 MG CAPS TO EQUAL 700 MG 01/22/2018 01/27/2018 Inactive Xarelto 20 mg tablet RxNorm: 0525217 TAKE ONE TABLET BY MOUTH DAILY 01/19/2018 07/17/2018 Active pantoprazole 40 mg tablet,delayed release RxNorm: 543607 TAKE ONE TABLET BY MOUTH TWICE A DAY AT 7AM AND 9PM 01/06/2018 07/04/2018 Active metoprolol succinate ER 25 mg tablet,extended release 24 hr RxNorm: 516084 Tablet(s) TAKE ONE TABLET BY MOUTH DAILY 12/11/2017 09/06/2018 Active Phenytek 200 mg capsule RxNorm: 835939 TAKE TWO CAPSULES BY MOUTH DAILY WITH 300 MG CAPSULE TO EQUAL 700 MG TOTAL DAILY 12/11/2017 01/27/2018 Inactive cefdinir 300 mg capsule RxNorm: 877450 1 Capsule(s) PO BID 11/14/2017 11/23/2017 Inactive cefdinir 300 mg capsule RxNorm: 875488 1 Capsule(s) PO BID 11/14/2017 11/13/2017 Inactive Phenergan with Codeine Syrup RxNorm: 5-10 Milliliter(s) PO QID as needed cough 11/11/2017 No Stop Date Active Zithromax Z-Kevin 250 mg tablet RxNorm: 944291 1 Tablet(s) PO UD 11/11/2017 No Stop Date Active prednisone 10 mg tablet RxNorm: 573991 Tablet(s) PO UD 11/11/2017 No Stop Date Active 6,5,4,3,2,1 Kenalog 40 mg/mL suspension for injection RxNorm: 4778751 1.5 Milliliter(s) Inj 11/11/2017 11/11/2017 Inactive metoprolol succinate ER 25 mg tablet,extended release 24 hr RxNorm: 593390 TAKE ONE TABLET BY MOUTH DAILY 09/15/2017 12/10/2017 Inactive Phenytek 300 mg capsule RxNorm: 929336 TAKE ONE CAPSULE BY MOUTH DAILY WITH TWO 200 MG CAPS TO EQUAL 700 MG 09/09/2017 01/21/2018 Inactive Phenytek 200 mg capsule RxNorm: 367041 TAKE TWO CAPSULES BY MOUTH DAILY WITH 300 MG CAPSULE TO EQUAL 700 MG TOTAL DAILY 08/26/2017 12/10/2017 Inactive pantoprazole 40 mg tablet,delayed release RxNorm: 704813 TAKE ONE TABLET BY MOUTH TWICE A DAY AT 7AM AND 9PM 08/11/2017 01/05/2018 Inactive Xarelto 20 mg tablet RxNorm: 9060329 Tablet(s) TAKE ONE TABLET BY MOUTH DAILY 06/25/2017 01/18/2018 Inactive metoprolol succinate ER 25 mg tablet,extended release 24 hr RxNorm: 736600 TAKE ONE TABLET BY MOUTH DAILY 06/20/2017 09/14/2017 Inactive Phenytek 200 mg capsule RxNorm: 657668 TAKE TWO CAPSULES BY MOUTH DAILY WITH 300 MG CAPSULE TO EQUAL 700 MG TOTAL DAILY 06/02/2017 08/25/2017 Inactive metoprolol succinate ER 25 mg tablet,extended release 24 hr RxNorm: 884457 TAKE ONE TABLET BY MOUTH DAILY 03/24/2017 06/19/2017 Inactive Phenytek 300 mg capsule RxNorm: 562301 TAKE ONE CAPSULE BY MOUTH DAILY WITH TWO 200 MG CAPS TO EQUAL 700 MG 03/12/2017 09/07/2017 Inactive Phenytek 200 mg capsule RxNorm: 454484 TAKE TWO CAPSULES BY MOUTH DAILY WITH 300 MG CAPSULE TO EQUAL 700 MG TOTAL DAILY 02/03/2017 06/01/2017 Inactive pantoprazole 40 mg tablet,delayed release RxNorm: 055293 TAKE ONE TABLET BY MOUTH TWICE A DAY AT 7AM AND 9PM 01/27/2017 07/25/2017 Inactive Ventolin HFA 90 mcg/actuation aerosol inhaler RxNorm: 620944 INHALE ONE PUFF BY MOUTH EVERY 4 TO 6 HOURS NEEDED 01/13/2017 03/19/2017 Inactive mupirocin 2 % topical ointment RxNorm: 072218 1 Application TOP BID 12/27/2016 01/05/2017 Inactive Xarelto 20 mg tablet RxNorm: 4829264 TAKE ONE TABLET BY MOUTH DAILY 11/28/2016 06/24/2017 Inactive Xarelto 20 mg tablet RxNorm: 5928968 TAKE ONE TABLET BY MOUTH DAILY 10/18/2016 11/27/2016 Inactive prednisone 10 mg tablet RxNorm: 355893 Tablet(s) PO UD 10/16/2016 10/21/2016 Inactive 6,5,4,3,2,1 prednisone 10 mg tablet RxNorm: 285314 Tablet(s) PO UD 10/16/2016 10/15/2016 Inactive 6,5,4,3,2,1 prednisone 20 mg tablet RxNorm: 372599 2 Tablet(s) PO daily 10/09/2016 10/13/2016 Inactive metoprolol succinate ER 25 mg tablet,extended release 24 hr RxNorm: 550045 TAKE ONE TABLET BY MOUTH DAILY 09/26/2016 03/23/2017 Inactive Phenytek 300 mg capsule RxNorm: 976504 TAKE ONE CAPSULE BY MOUTH DAILY WITH TWO 200 MG CAPS TO EQUAL 700 MG 09/17/2016 03/11/2017 Inactive Phenytek 200 mg capsule RxNorm: 258972 TAKE TWO CAPSULES BY MOUTH DAILY WITH 300 MG CAPSULE TO EQUAL 700 MG TOTAL DAILY 09/03/2016 01/30/2017 Inactive Xarelto 20 mg tablet RxNorm: 0892973 TAKE ONE TABLET BY MOUTH DAILY 07/23/2016 10/17/2016 Inactive pantoprazole 40 mg tablet,delayed release RxNorm: 502981 TAKE ONE TABLET BY MOUTH TWICE A DAY AT 7 AM AND 9 PM 07/02/2016 12/28/2016 Inactive Xarelto 20 mg tablet RxNorm: 1306537 1 Tablet(s) PO daily 03/25/2016 07/22/2016 Inactive Symbicort 160 mcg-4.5 mcg/actuation HFA aerosol inhaler RxNorm: 7317381 2 Puff(s) INH BID 03/11/2016 No Stop Date Active Phenytek 200 mg capsule RxNorm: 264642 TAKE TWO CAPSULES BY MOUTH DAILY WITH 300 MG CAPSULE TO EQUAL 700 MG TOTAL DAILY 03/08/2016 09/02/2016 Inactive prednisone 20 mg tablet RxNorm: 784549 2 Tablet(s) PO daily 02/23/2016 02/27/2016 Inactive Ventolin HFA 90 mcg/actuation aerosol inhaler RxNorm: 184210 1 Puff(s) INH Q4-6H as needed 02/23/2016 01/12/2017 Inactive Augmentin 875 mg-125 mg tablet RxNorm: 750965 1 Tablet(s) PO BID 02/23/2016 02/25/2016 Inactive nystatin 100,000 unit/gram topical powder RxNorm: 566854 1 Gram(s) TOP TID 01/16/2016 01/25/2016 Inactive Phenergan-Codeine 6.25 mg-10 mg/5 mL syrup RxNorm: 920334 5-10 Milliliter(s) PO Q6 as needed cough 12/01/2015 12/26/2016 Inactive Zithromax 250 mg tablet RxNorm: 018822 1 Tablet(s) PO daily 11/23/2015 11/26/2015 Inactive Zithromax 250 mg tablet RxNorm: 401612 1 Tablet(s) PO daily 11/23/2015 11/22/2015 Inactive Zithromax Z-Kevin 250 mg tablet RxNorm: 472098 1 Tablet(s) PO UD 11/20/2015 11/24/2015 Inactive zpack Kenalog 40 mg/mL suspension for injection RxNorm: 0719817 1 Milliliter(s) Inj 11/20/2015 11/20/2015 Inactive Coumadin 4 mg tablet RxNorm: 499379 TAKE TWO TABLETS BY MOUTH EVERY EVENING FOR 3 DAYS, THEN TAKE TAKE ONE TABLET BY MOUTH EVERY EVENING THEREAFTER 11/20/2015 03/10/2016 Inactive hydrochlorothiazide 25 mg tablet RxNorm: 099185 TAKE ONE TABLET BY MOUTH DAILY 10/11/2015 03/10/2016 Inactive triamcinolone acetonide 0.025 % topical ointment RxNorm: 3038438 1 Application TOP BID 09/01/2015 No Stop Date Active nystatin 100,000 unit/gram topical cream RxNorm: 777845 1 Gram(s) TOP BID 09/01/2015 09/08/2016 Inactive Phenytek 300 mg capsule RxNorm: 480555 1 Capsule(s) PO daily take with two 200mg tablets to equal 700mg 09/01/2015 03/28/2016 Inactive nystatin 100,000 unit/gram topical powder RxNorm: 524721 1 Application TOP 09/01/2015 09/01/2015 Inactive Anucort-HC 25 mg suppository RxNorm: 9323338 1 Suppository RTL BID x 1 week then as needed 08/09/2015 No Stop Date Active Phenytek 300 mg capsule RxNorm: 467969 1 Capsule(s) PO daily take with two 200mg tablets to equal 700mg 08/02/2015 08/31/2015 Inactive Phenytek 200 mg capsule RxNorm: 196874 Capsule(s) TAKE TWO CAPSULES BY MOUTH DAILY. TAKE WITH 300MG CAPSULE TO EQUAL 700MG TOTAL DAILY. 08/02/2015 02/27/2016 Inactive lorazepam 1 mg tablet RxNorm: 740143 1 Tablet(s) PO QID as needed seizure activity 06/26/2015 07/25/2015 Inactive Phenytek 200 mg capsule RxNorm: 140191 TAKE TWO CAPSULES BY MOUTH DAILY. TAKE WITH 300MG CAPSULE TO EQUAL 700MG TOTAL DAILY. 05/25/2015 07/23/2015 Inactive Phenytek 200 mg capsule RxNorm: 799778 TAKE TWO CAPSULES BY MOUTH DAILY. TAKE WITH 300MG CAPSULE TO EQUAL 700MG TOTAL DAILY. 05/03/2015 05/24/2015 Inactive hydrochlorothiazide 25 mg tablet RxNorm: 109391 TAKE ONE TABLET BY MOUTH DAILY 03/27/2015 09/22/2015 Inactive hydrochlorothiazide 25 mg tablet RxNorm: 201498 TAKE ONE TABLET BY MOUTH DAILY 03/27/2015 09/22/2015 Inactive Phenytek 300 mg capsule RxNorm: 367075 1 Capsule(s) PO daily take with 2 200mg tablets to equal 700mg 01/04/2015 08/01/2015 Inactive Coumadin 1 mg tablet RxNorm: 212977 TAKE 1 TABLET BY MOUTH DOCTOR DIRECTED 12/19/2014 03/18/2015 Inactive Coumadin 4 mg tablet RxNorm: 217129 1 Tablet(s) PO QPM when starting, pt to take 4mg two pills nightly x 3 nights then take one pill daily) 12/05/2014 06/25/2015 Inactive Phenytek 200 mg capsule RxNorm: 150917 TAKE TWO CAPSULES BY MOUTH DAILY. TAKE WITH 300MG CAPSULE TO EQUAL 700MG TOTAL DAILY. 11/08/2014 05/02/2015 Inactive metronidazole 500 mg tablet RxNorm: 295582 1 Tablet(s) PO TID 11/01/2014 11/10/2014 Inactive hydrochlorothiazide 25 mg tablet RxNorm: 822091 1 Tablet(s) PO daily 2014 03/26/2015 Inactive Coumadin 1 mg tablet RxNorm: 017473 TAKE 1 TABLET BY MOUTH DOCTOR DIRECTED 08/19/2014 10/31/2014 Inactive Coumadin 1 mg tablet RxNorm: 572660 1 Tablet(s) PO as doctor directed 07/21/2014 08/18/2014 Inactive Coumadin 1 mg tablet RxNorm: 455080 1 Tablet(s) PO as doctor directed 07/21/2014 07/20/2014 Inactive hydrochlorothiazide 12.5 mg tablet RxNorm: 365030 1 Tablet(s) PO daily 06/15/2014 08/28/2014 Inactive Coumadin 5 mg tablet RxNorm: 200561 1 Tablet(s) PO QPM 05/12/2014 10/31/2014 Inactive check lab in 2 weeks Bactrim DS 800 mg-160 mg tablet RxNorm: 483778 1 Tablet(s) PO BID 05/10/2014 05/09/2014 Inactive start after UA given to lab Bactrim DS 800 mg-160 mg tablet RxNorm: 772391 1 Tablet(s) PO BID 05/10/2014 05/16/2014 Inactive start after UA given to lab today Keflex 500 mg capsule RxNorm: 848638 1 Capsule(s) PO TID 04/26/2014 05/05/2014 Inactive Phenytek 300 mg capsule RxNorm: 217170 1 Capsule(s) PO daily 03/29/2014 03/28/2014 Inactive Phenytek 300 mg capsule RxNorm: 046357 1 Capsule(s) PO daily take with 2 200mg tablets to equal 700mg 03/29/2014 10/24/2014 Inactive Phenytek 200 mg capsule RxNorm: 282371 2 Capsule(s) PO daily take with a 300mg capsule to equal 700mg daily 03/29/2014 10/24/2014 Inactive Coumadin 4 mg tablet RxNorm: 267513 1 Tablet(s) PO QPM when starting, pt to take 4mg two pills nightly x 3 nights then take one pill daily) 03/29/2014 05/11/2014 Inactive hydrochlorothiazide 12.5 mg tablet RxNorm: 635685 1 Tablet(s) PO daily 03/29/2014 06/14/2014 Inactive Aspirin Low Dose 81 mg tablet,delayed release RxNorm: 936952 1 Tablet(s) PO daily No Start Date Active Phenergan-Codeine 6.25 mg-10 mg/5 mL syrup RxNorm: 308434 5-10 Milliliter(s) PO Q6 as needed cough No Start Date 11/30/2015 Inactive pantoprazole 40 mg tablet,delayed release RxNorm: 010454 1 Tablet(s) PO daily No Start Date 07/01/2016 Inactive Xarelto 20 mg tablet RxNorm: 4189930 Tablet(s) PO No Start Date 03/24/2016 Inactive 15mg BID x 21 days then 20mg daily lorazepam 0.5 mg tablet RxNorm: 959579 1 Tablet(s) PO as doctor directed for seizures No Start Date 06/25/2015 Inactive Symbicort 160 mcg-4.5 mcg/actuation HFA aerosol inhaler RxNorm: 8455939 inhalation No Start Date 03/10/2016 Inactive Phenytek oral RxNorm: 863882 oral No Start Date 03/28/2014 Inactive metoprolol succinate ER 25 mg tablet,extended release 24 hr RxNorm: 221742 1 Tablet(s) PO daily No Start Date 09/25/2016 Inactive aspirin 325 mg tablet,delayed release RxNorm: 307285 1 Tablet(s) PO QHS No Start Date 03/04/2016 Inactive Medication Administered Medication Codes Instructions Start Date Status Kenalog 40 mg/mL suspension for injection RxNorm: 7125782 1.5Milliliter 11/11/2017 No longer Active Kenalog 40 mg/mL suspension for injection RxNorm: 7676070 1Milliliter 11/20/2015 No longer Active Immunizations Vaccine [...] Item Item Code Result Date Comp Metabolic Usf971 NA 141 mEq/L 09/09/2016 Comp Metabolic Gkq226 K 3.8 mEq/L 09/09/2016 Comp Metabolic Skq706 CL 108 mEq/L 09/09/2016 Comp Metabolic Ycc903 CO2 24.0 mEq/L 09/09/2016 Comp Metabolic Exd162 ANION GAP 13 09/09/2016 Comp Metabolic Vie946 GLUCOSE 134 mg/dL 09/09/2016 Comp Metabolic Ntn740 Creat 0.8 mg/dL 09/09/2016 Comp Metabolic Jke782 eGFR 113 ml/min/1.73m2 09/09/2016 Comp Metabolic Xcl924 BUN 16 mg/dL 09/09/2016 Comp Metabolic Gfr914 B/C Ratio 21.1 Ratio 09/09/2016 Comp Metabolic Mes194 CALCIUM 8.8 mg/dL 09/09/2016 Comp Metabolic Gvf962 ALK PHOS 111 U/L 09/09/2016 Comp Metabolic Hsc279 AST(SGOT) 16 U/L 09/09/2016 Comp Metabolic Hbr433 ALT(SGPT) 16 U/L 09/09/2016 Comp Metabolic Ptq086 BILI T 0.4 mg/dL 09/09/2016 Comp Metabolic Xsk633 ALBUMIN 3.8 g/dL 09/09/2016 Comp Metabolic Qbm249 TPRO 7.0 g/dL 09/09/2016 Comp Metabolic Kst911 GLOB 3.2 g/dL 09/09/2016 Comp Metabolic Cou259 A/G Ratio 1.2 Ratio 09/09/2016 Comp Metabolic Cqy470 Osmo 284 mOsmo 09/09/2016 Cbc With Differential [...] 32.6 pg 09/09/2016 Cbc With Differential Ord2 [place]% 10.2 % 09/09/2016 Cbc With Differential Ord2 [...] 1.83 K/ul 09/09/2016 Cbc With Differential Ord2 [place] ABS# 0.7 K/ul 09/09/2016 Cbc With Differential [...] 34.3 pg 12/26/2015 Cbc With Differential Ord2 [place]% 8.7 % 12/26/2015 Cbc With Differential Ord2 [...] 1.71 K/ul 12/26/2015 Cbc With Differential Ord2 [place] ABS# 0.7 K/ul 12/26/2015 Cbc With Differential Ord2 Eos ABS# 0.1 K/ul 12/26/2015 Cbc With Differential Ord2 Baso ABS# 0.0 K/ul 12/26/2015 Tsh Ord6 hTSH II 2.81 uIU/mL 12/26/2015 Comp Metabolic Ere550 NA 137 mEq/L 12/26/2015 Comp Metabolic Kkj885 K 4.3 mEq/L 12/26/2015 Comp Metabolic Arn061 CL 101 mEq/L 12/26/2015 Comp Metabolic Tur779 CO2 27.0 mEq/L 12/26/2015 Comp Metabolic Qqq547 ANION GAP 13 12/26/2015 Comp Metabolic Gmi676 GLUCOSE 128 mg/dL 12/26/2015 Comp Metabolic Qrx108 Creat 0.8 mg/dL 12/26/2015 Comp Metabolic Gtg137 eGFR 104 ml/min/1.73m2 12/26/2015 Comp Metabolic Nuj996 BUN 16 mg/dL 12/26/2015 Comp Metabolic Qkv870 B/C Ratio 19.5 Ratio 12/26/2015 Comp Metabolic Xdh528 CALCIUM 9.2 mg/dL 12/26/2015 Comp Metabolic Fjw508 ALK PHOS 107 U/L 12/26/2015 Comp Metabolic Xiq905 AST(SGOT) 15 U/L 12/26/2015 Comp Metabolic Jwz690 ALT(SGPT) 15 U/L 12/26/2015 Comp Metabolic Jfi653 BILI T 0.4 mg/dL 12/26/2015 Comp Metabolic Onx895 ALBUMIN 4.0 g/dL 12/26/2015 Comp Metabolic Vfp903 TPRO 7.6 g/dL 12/26/2015 Comp Metabolic Wwh754 GLOB 3.6 g/dL 12/26/2015 Comp Metabolic Rkw058 A/G Ratio 1.1 Ratio 12/26/2015 Comp Metabolic Axl126 Osmo 277 mOsmo 12/26/2015 Dilantin Ord7 DILANTIN [...] J3301 11/11/2017 OCCULT BLOOD FECES CPT- 4: 83771 10/28/2017 TRIAMCINOLONE ACET INJ NOS CPT-4: J3301 11/20/2015 Vital Signs Date Vital 01/28/2018 Blood Pressure 1: 140/80 Code: 8480-6 BMI: 48.3 Code: 54571-3 Heart Rate 1: 78 bpm Height: 5'11" SpO2: 94% Temperature: 36.7 (C) / 98.1 (F) Weight: 346 lbs 11/11/2017 Blood Pressure 1: 144/82 Code: 8480-6 BMI: 47.1 Code: 44482-0 Heart Rate 1: 73 bpm Height: 5'11" SpO2: 94% Temperature: 36.9 (C) / 98.5 (F) Weight: 338 lbs 10/17/2017 Blood Pressure 1: 136/78 Code: 8480-6 BMI: 47.1 Code: 48669-3 Heart Rate 1: 82 bpm Height: 5'11" SpO2: 96% Weight: 338 lbs 06/06/2017 Blood Pressure 1: 138/76 Code: 8480-6 BMI: 47.4 Code: 94701-4 Heart Rate 1: 76 bpm Height: 5'11" SpO2: 96% Weight: 340 lbs 04/11/2017 Blood Pressure 1: 142/80 Code: 8480-6 Heart Rate 1: 79 bpm Height: 5'11" SpO2: 96% 01/27/2017 Blood Pressure 1: 146/86 Code: 8480-6 BMI: 47.1 Code: 40825-9 Heart Rate 1: 97 bpm Height: 5'11" SpO2: 95% Weight: 338 lbs 12/27/2016 Blood Pressure 1: 154/74 Code: 8480-6 BMI: 48.5 Code: 43165-1 Heart Rate 1: 82 bpm Height: 5'11" SpO2: 96% Weight: 348 lbs 10/09/2016 Blood Pressure 1: 160/82 Code: 8480-6 BMI: 47.4 Code: 52859-9 Heart Rate 1: 77 bpm Height: 5'11" SpO2: 96% Weight: 340 lbs 09/09/2016 Blood Pressure 1: 140/80 Code: 8480-6 Heart Rate 1: 88 bpm Height: 5'11" SpO2: 96% Weight: 05/31/2016 Blood Pressure 1: 126/78 Code: 8480-6 BMI: 46.3 Code: 41781-5 Heart Rate 1: 75 bpm Height: 5'11" SpO2: 96% Weight: 332 lbs 03/29/2016 Blood Pressure 1: 146/78 Code: 8480-6 Heart Rate 1: 78 bpm Height: 5'11" SpO2: 97% Weight: 03/11/2016 Blood Pressure 1: 136/86 Code: 8480-6 BMI: 44.4 Code: 15183-9 Heart Rate 1: 77 bpm Height: 5'11" SpO2: 96% Weight: 318 lbs 02/23/2016 Blood Pressure 1: 146/94 Code: 8480-6 BMI: 44.4 Code: 97420-1 Heart Rate 1: 90 bpm Height: 5'11" SpO2: 93% Weight: 318 lbs 01/16/2016 Blood Pressure 1: 140/86 Code: 8480-6 BMI: 44.6 Code: 57458-8 Heart Rate 1: 75 bpm Height: 5'11" SpO2: 96% Weight: 320 lbs 12/26/2015 Blood Pressure 1: 130/78 Code: 8480-6 BMI: 43.7 Code: 78677-8 Heart Rate 1: 96 bpm Height: 5'11" SpO2: 98% Weight: 313 lbs 11/20/2015 Blood Pressure 1: 137/92 Code: 8480-6 Heart Rate 1: 84 bpm Height: SpO2: 98% Temperature: 36.7 (C) / 98.0 (F) Weight: 09/01/2015 Blood Pressure 1: 148/88 Code: 8480-6 BMI: 43.8 Code: 71348-0 Heart Rate 1: 73 bpm Height: 5'11" SpO2: 97% Weight: 314 lbs 08/09/2015 Blood Pressure 1: 138/78 Code: 8480-6 BMI: 45.0 Code: 08761-4 Heart Rate 1: 75 bpm Height: 5'11" SpO2: 98% Weight: 323 lbs 06/26/2015 Blood Pressure 1: 134/80 Code: 8480-6 BMI: 46.3 Code: 37374-4 Heart Rate 1: 78 bpm Height: 5'11" SpO2: 96% Weight: 332 lbs 11/18/2014 Blood Pressure 1: 130/78 Code: 8480-6 BMI: 44.4 Code: 69740-2 Heart Rate 1: 66 bpm Height: 5'11" SpO2: 98% Weight: 318 lbs 11/01/2014 Blood Pressure 1: 130/78 Code: 8480-6 BMI: 44.5 Code: 44074-5 Heart Rate 1: 78 bpm Height: 5'11" SpO2: 97% Weight: 319 lbs 10/27/2014 Blood Pressure 1: 152/88 Code: 8480-6 BMI: 43.9 Code: 47854-1 Heart Rate 1: 91 bpm Height: 5'11" SpO2: 98% Weight: 315 lbs 2014 Blood Pressure 1: 140/82 Code: 8480-6 BMI: 44.9 Code: 56566-1 Heart Rate 1: 78 bpm Height: 5'11" Weight: 322 lbs 05/05/2014 Blood Pressure 1: 142/88 Code: 8480-6 BMI: 40.9 Code: 03902-6 Heart Rate 1: 64 bpm Height: 5'11" Temperature: 37.3 (C) / 99.1 (F) Weight: 293 lbs 04/26/2014 Blood Pressure 1: 142/82 Code: 8480-6 BMI: 40.2 Code: 31558-3 Heart Rate 1: 64 bpm Height: 5'11" Weight: 288 lbs 03/29/2014 Blood Pressure 1: 138/84 Code: 8480-6 BMI: 39.3 Code: 36684-1 Heart Rate 1: 84 bpm Height: 5'11" [...] drug level monitoring[ICD10: Z51.81] Elsie Salamanca MD, [facility] CPT-4: 93168 01/28/2018 94025 EST. PATIENT, LEVEL III Diagnosis: Other acute sinusitis[ICD10: J01.80] Diagnosis: Other allergic rhinitis[ICD10: J30.89] Diagnosis: Cough[ICD10: R05] [facility] CPT-4: 69732 11/11/2017 70942 EST. PATIENT, LEVEL IV Diagnosis: Essential (primary) hypertension[ICD10: I10] Diagnosis: Epilepsy, unspecified, not intractable, without status epilepticus[ICD10: G40.909] [facility] CPT-4: 52690 10/17/2017 37157 EST. PATIENT, LEVEL IV Diagnosis: Essential (primary) hypertension[ICD10: I10] Diagnosis: Epilepsy, unspecified, not intractable, without status epilepticus[ICD10: G40.909] Elsie Salamanca MD, [facility] CPT-4: 89101 06/06/2017 69907 EST. PATIENT, LEVEL IV Diagnosis: Essential (primary) hypertension[ICD10: I10] Diagnosis: Epilepsy, unspecified, not intractable, without status epilepticus[ICD10: G40.909] Elsie Salamanca MD, [facility] CPT-4: 74470 04/11/2017 ([id number]) 91008 EST. PATIENT, LEVEL III Diagnosis: Essential (primary) hypertension[ICD10: I10] Diagnosis: Epilepsy, unspecified, not intractable, without status epilepticus[ICD10: G40.909] Leelee Salamanca MD, [facility] CPT-4: 68989 01/27/2017 ([id number]) 42625 EST. PATIENT, LEVEL IV Diagnosis: Essential (primary) hypertension[ICD10: I10] Diagnosis: Epilepsy, unspecified, not intractable, without status epilepticus[ICD10: G40.909] Diagnosis: Pain in right wrist[ICD10: M25.531] Leelee Salamanca MD, [facility] CPT-4: 81210 12/27/2016 43215 EST. PATIENT, LEVEL III Diagnosis: Rash and other nonspecific skin eruption[ICD10: R21] Elsie Salamanca MD, [facility] CPT-4: 81249 10/09/2016 ([id number]) 81700 EST. PATIENT, LEVEL III Diagnosis: Carpal tunnel syndrome, right upper limb[ICD10: G56.01] Diagnosis: Olecranon bursitis, right elbow[ICD10: M70.21] Betty Salamanca MD, [facility] CPT-4: 04711 09/09/2016 ([id number]) 20600 EST. PATIENT, LEVEL III Diagnosis: Essential (primary) hypertension[ICD10: I10] Diagnosis: Low back pain[ICD10: M54.5] Leelee Salamanca MD, [facility] CPT-4: 57254 05/31/2016 ([id number]) 15185 EST. PATIENT, LEVEL III Diagnosis: Essential (primary) hypertension[ICD10: I10] Diagnosis: Slow transit constipation[ICD10: K59.01] Leelee Salamanca MD, [facility] CPT-4: 95906 03/29/2016 ([id number]) 30738 EST. 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 PATIENT, LEVEL III Diagnosis: Acute laryngopharyngitis[ICD10: J06.0] Diagnosis: Other allergic rhinitis[ICD10: J30.89] Diagnosis: Cough[ICD10: R05] Diagnosis: Wheezing[ICD10: R06.2] Elsie Salamanca MD, [facility] CPT-4: 41643 02/23/2016 ([id number]) 56450 EST. PATIENT, LEVEL III Diagnosis: Epilepsy, unspecified, not intractable, without status epilepticus[ICD10: G40.909] Betty Salamanca MD, [facility] CPT-4: 64521 01/16/2016 ([id number]) 84349 EST. PATIENT, LEVEL IV Diagnosis: Essential (primary) hypertension[ICD10: I10] Diagnosis: Morbid (severe) obesity due to excess calories[ICD10: E66.01] Diagnosis: Epilepsy, unspecified, not intractable, without status epilepticus[ICD10: G40.909] Betty Salamanca MD, [facility] CPT-4: 28667 12/26/2015 ([id number]) 84405 EST. PATIENT, LEVEL III Diagnosis: Allergic rhinitis due to pollen[ICD10: J30.1] Diagnosis: Acute upper respiratory infection, unspecified[ICD10: J06.9] Leelee Salamanca MD, [facility] CPT-4: 20414 11/20/2015 65557 EST. 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 PATIENT, LEVEL IV Diagnosis: Epilepsy, unspecified, not intractable, without status epilepticus[ICD10: G40.909] Diagnosis: Essential (primary) hypertension[ICD10: I10] Diagnosis: First degree hemorrhoids[ICD10: K64.0] Diagnosis: Low back pain[ICD10: M54.5] Betty Salamanca MD, [facility] CPT-4: 02245 08/09/2015 ([id number]) 54810 EST. PATIENT, LEVEL IV Diagnosis: Essential (primary) hypertension[ICD10: I10] Diagnosis: Morbid (severe) obesity due to excess calories[ICD10: E66.01] Diagnosis: Epilepsy, unspecified, not intractable, without status epilepticus[ICD10: G40.909] Betty Salamanca MD, [facility] CPT-4: 06617 06/26/2015 ([id number]) [id number] EST. PATIENT, LEVEL IV Diagnosis: ESSENTIAL HYPERTENSION[ICD9: 401.9] Diagnosis: Small bowel obstruction[ICD9: 560.9] Diagnosis: Hospital discharge follow-up[ICD9: V67.59] Betty Salamanca MD, [facility] CPT-4: 88898 11/18/2014 ([id number]) [id number] EST. PATIENT, LEVEL III Diagnosis: Diarrhea[ICD9: 787.91] Diagnosis: Abdominal pain[ICD9: 789.00] Betty Salamanca MD, [facility] CPT-4: 18055 11/01/2014 ([id number]) [id number] EST. PATIENT, LEVEL III Diagnosis: ESSENTIAL HYPERTENSION[ICD9: 401.9] Diagnosis: Diarrhea[ICD9: 787.91] Leelee Salamanca MD, [facility] CPT-4: 26212 10/27/2014 ([id number]) 37680 EST. PATIENT, LEVEL IV Diagnosis: Factor V Leiden mutation[ICD9: 289.81] Diagnosis: Hx of deep venous thrombosis[ICD9: V12.51] Diagnosis: ESSENTIAL HYPERTENSION[ICD9: 401.9] Diagnosis: OBESITY[ICD9: 278.00] [facility] CPT-4: 77934 2014 ([id number]) 44050 EST. PATIENT, LEVEL III Diagnosis: Hematuria[ICD9: 599.70] Diagnosis: LONG-TERM USE ANTICOAGUL[ICD9: V58.61] [facility] CPT-4: 76119 05/05/2014 ([id number]) 33603 EST. PATIENT, LEVEL IV Diagnosis: ESSENTIAL HYPERTENSION[ICD9: 401.9] Diagnosis: LONG-TERM USE ANTICOAGUL[ICD9: V58.61] Diagnosis: MORBID OBESITY[ICD9: 278.01] Diagnosis: Abscess and cellulitis[ICD9: 682.9] [facility] CPT- 4: 38697 04/26/2014 ([id number]) OFFICE VISIT, NEW - LEVEL 4 Diagnosis: ESSENTIAL HYPERTENSION[ICD9: 401.9] Diagnosis: LONG-TERM USE ANTICOAGUL[ICD9: V58.61] [facility] CPT-4: 76500 03/29/2014 Plan of Care Planned Activity Notes [...] in the nasal steroid allergy spray. 01/28/2018 Patient Education: Patient Medication Summary Completed [...] allergy spray. 11/11/2017 Appointment: Elsie Mosquera WPtel: [address] [place], [place] [id number] (15 min) Moderate 11/11/2017 Patient Education: Patient [...] weight check. 10/17/2017 Appointment: Elsie Mosquera: [address] [facility] (15 min) Moderate 10/17/2017 Patient Education: Patient Medication Summary Completed 10/17/2017 Appointment: Elsie Mosqueratel: [facility] (15 min) Moderate 10/07/2017 Care Plan: BMI Above normal followup SELF-MGMT EDUC & TRAIN 1 PT Pending 06/09/2017 Visit Plan: Hypertension - improved - continue with current medications, continue with no added salt diet. Pt has been encouraged to exercise daily. The pt has been advised to call the office if there are any ac [place] concerns about change in blood pressure readings at home. Epilepsy- controlled, no changes, continue to monitor Obesity - chronic issue with this patient. The pt has been counseled about diet changes, calorie restriction, and need to exercise. Pt will RTC in one month for weight check. 06/06/2017 Appointment: Elsie Mosqueral: [address] [place], [place] [address] (30 min) Complex 06/06/2017 Patient Education: [...] the office if there are any ac [place] concerns about change in blood pressure readings at home. Epilepsy- controlled, no changes, continue to monitor Obesity - chronic issue with this patient. The pt has been counseled about diet changes, calorie restriction, and need to exercise. Pt will RTC in one month for weight check. 04/11/2017 Appointment: Elsie Mosqueral: [facility] (30 min) Complex 04/11/2017 Patient Education: Patient Medication Summary Completed 04/11/2017 Patient Education: Obesity Completed 04/11/2017 Appointment: El[facility]quera WPtel[facility] ([facility] min) Complex 04/01/2017 Visit Plan: Hypertension - improved - continue with current medications, continue with no added salt diet. Pt has been encouraged to exercise daily. The pt has been advised to call the office if there are any ac [place] concerns about change in blood pressure readings at home. Obesity-lost 10#- continue diet/exercise Epilepsy-check dilantin level 01/27/2017 Appointment: Leelee Weinstein WPtel: [address] [phone] (30 min) Complex 01/27/2017 Patient Education: Patient [...] Dr Ordaz 12/27/2016 Appointment: Leelee Weinstein WPtel: [phone] (30 min) Complex 12/27/2016 Patient Education: Patient Medication Summary Completed 12/27/2016 Care Plan: Referral Order SNOMED-CT : [id number] Pending 12/27/2016 Visit Plan: Rash - pt [...] Obesity Completed 10/09/2016 Appointment: Leelee Weinstein WPtel: [phone] (30 min) Complex 10/04/2016 Visit Plan: on the rash on your foot, use benadryl cream mixed with cortisone cream - use a jerica size portion of both Carpal tunnel -wear a carpal tunnel brace at night and a tennis elbow brace during the day use aspercreme on your elbow and wrist at least twice a day 09/09/2016 Appointment: Betty Salamanca WPtel: [facility] (15 min) Moderate 09/09/2016 Patient Education: Patient [...] not improve. 05/31/2016 Appointment: Leelee Weinstein WPtel: [phone] [place] (30 min) Complex 05/31/2016 Patient Education: Patient Medication Summary Completed 05/31/2016 Patient Education: Obesity Completed 05/31/2016 Patient Education: Hypertension Completed 05/31/2016 Appointment: Leelee Weinstein WPtel: [phone] [place] (30 min) Complex 04/01/2016 Visit Plan: [...] plan. 03/29/2016 Appointment: Leelee Weinstein WPtel: [address] [phone] (15 min) Moderate 03/29/2016 Patient Education: Patient Medication Summary Completed 03/29/2016 Patient Education: Hypertension Completed 03/29/2016 Visit Plan: Bilateral PE-hospital follow up-on xarelto-symptoms improving Ychfk-eyjuwpaxxx-lnhcldgo-continue symbicort twice daily as directed Hypertension - well controlled - continue with current medications, continue with no added salt diet. Pt has been encouraged to exercise daily. The pt has been advised to call the office if there are any acute concerns about change in blood pressure readings at home. 03/11/2016 Appointment: Leelee Weinstein WPtel: [address] [phone] (30 min) Complex 03/11/2016 Patient Education: Patient [...] spray. 02/23/2016 Appointment: Elsie Mosquera WPtel: [address] [phone] (15 min) Moderate 02/23/2016 Patient Education: Patient Medication Summary Completed 02/23/2016 Patient Education: Obesity Completed 02/23/2016 Visit Plan: Epilepsy - continue with phenytek wound improving 01/16/2016 Appointment: Betty Salamanca WPtel: [facility] (15 min) Moderate 01/16/2016 Patient Education: [...] Betty Salamanca WPtel: [facility] (15 min) Moderate 12/26/2015 Patient Education: Patient [...] resolve 11/20/2015 Appointment: Leelee Weinstein WPtel: [address] [phone] [place] (15 min) Moderate 11/20/2015 Patient Education: [...] in pain. 09/01/2015 Appointment: Leelee Weinstein WPtel: [phone] (30 min) [facility] 09/01/2015 Patient Education: Patient Medication Summary Completed 09/01/2015 Referral: Ady Oswald WPtel:[phone] Referral Completed 08/30/2015 Visit Plan: Hypertension - [...] 08/09/2015 Care Plan: Referral Order SNOMED-CT : [id number] Pending 07/12/2015 Visit Plan: Hypertension - well [...] Betty Salamanca WPtel[facility] (15 min) Moderate 11/01/2014 Patient [...] Betty Salamanca WPtel: [facility] Follow [facility] 2014 Patient Education: Patient Medication Summary Completed 2014 Patient Education: Hypertension Completed 2014 Care Plan: Referral Order SNOMED-CT : [id number] Ordered 2014 Visit Plan: Hematuria-per patient report-no [...] weight check. 04/26/2014 Appointment: Betty Salamanca WPtel: [address] [place], [place] [phone] Follow up 04/26/2014 Patient Education: Patient Medication [...] and 3.5. 03/29/2014 Appointment: Betty Salamanca WPtel: [address] [place], [place] [phone] New Patient 03/29/2014 Patient Education: Patient Medication Summary Completed 03/29/2014 Patient Education: Hypertension Completed 03/29/2014 Referral: Madhu Hall MD WPtel: Via [address] [place] Referral Completed Referral: Edilson Ordaz [facility] [place] Referral Appointment Requested Referral: Ady Oswald WPtel:[phone] Referral Appointment Requested Instructions Comment . Hypertension [...] . Bilateral PE-hospital follow up-on xarelto-symptoms improving Owlnx-wyygefgjqm-smqbrfkl-continue symbicort twice daily as directed Hypertension - [...] to start on flagyl. . Hypertension - improved - continue with [...]
--- OUTSIDE RECORDS SUMMARY | 2018-09-06 06:37 | XMS REPORT | CCD ---
Author Author [facility] Organization [facility] Address [address] [place] [address] Phone Care Team Providers Care Orthotist Name Role Phone PP Unavailable CCM Unavailable Summary Purpose Interface Exchange Insurance Providers Payer name Policy type / Coverage type Covered libertarian ID Effective Begin Date Effective End Date Blue Cross Blue [facility] Blue Cross/Blue Shield [id number] Unknown Unknown Family history Father Diagnosis Age At Onset Coronary Artery Disease Unknown Mother Diagnosis Age At Onset Cancer Unknown Cancer Unknown Social History Social History Element Codes Description Effective Dates Number of children Unknown 0 06/26/2015 Employment Unknown 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[employer] 06/26/[address]: 488068624 Never smoker 06/26/[address]: 778656618 Never drinks alcohol 06/26/2015 Marital status Unknown Regina 04/26/2014 Allergies, Adverse Reactions, Alerts Substance Reaction Codes Entered Date Inactivated Date Status * NO KNOWN DRUG ALLERGIES Unknown 03/29/2014 No Inactive Date Active Past Medical History Illness Codes Condition Status Onset Date Resolved Date Anemia, unspecified ICD- 9: 285.9 ICD-10: D64.9 Active 10/28/2017 Unknown Cough ICD-9: 786.2 ICD-10: R05 Active 03/10/2016 Unknown Other acute sinusitis ICD- 9: 461.8 ICD-10: J01.80 Active 11/11/2017 Unknown Other allergic rhinitis ICD-9: 477.8 ICD-10: J30.89 Active 02/22/2016 Unknown Encounter for screening for malignant neoplasm [...] ICD-9: 465.0 ICD-10: J06.0 Active 02/22/2016 Unknown Wheezing ICD-9: 786.07 ICD-10: [...] ICD-9: V58.61 ICD-10: Z51.81 Active 02/02/2015 Unknown Obesity, unspecified ICD- 9: 278.00 ICD-10: [...] Problems Condition Codes Effective Dates Condition Status Anemia, unspecified ICD- 9: 285.9 ICD-10: D64.9 10/28/2017 Active Cough ICD-9: 786.2 ICD-10: R05 03/10/2016 Active Other acute sinusitis ICD- 9: 461.8 ICD-10: J01.80 11/11/2017 Active Other allergic rhinitis ICD-9: 477.8 ICD-10: J30.89 02/22/2016 Active Encounter for screening for malignant neoplasm [...] laryngopharyngitis ICD-9: 465.0 ICD-10: J06.0 02/22/2016 Active Wheezing ICD-9: 786.07 ICD-10: R06.2 02/22/2016 Active Morbid (severe) obesity due to excess calories ICD-9: 278.01 ICD-10: E66.01 04/26/2014 Active Acute upper respiratory infection, unspecified ICD-9: 465.9 ICD-10: J06.9 11/19/2015 Active Allergic rhinitis due to pollen ICD-9: 477.0 ICD-10: J30.1 11/19/2015 Active Other chcf (current) drug therapy ICD-9: V58.69 ICD-10: Z79.899 09/07/2015 Active Candidiasis of skin and nail ICD-9: 112.3 ICD-10: B37.2 08/31/2015 Active First degree hemorrhoids ICD-9: 455.6 ICD-10: K64.0 08/08/2015 Active Encounter for therapeutic drug level monitoring ICD-9: V58.61 ICD-10: Z51.81 02/02/2015 Active Obesity, unspecified ICD- 9: 278.00 ICD-10: [...] Fill Instructions Phenytek 300 mg capsule RxNorm: 048124 Capsule(s) TAKE ONE CAPSULE BY MOUTH DAILY WITH TWO 200 MG CAPS TO EQUAL 700 MG 01/22/2018 06/20/2018 Active Xarelto 20 mg tablet RxNorm: 1980647 TAKE ONE TABLET BY MOUTH DAILY 01/19/2018 07/17/2018 Active pantoprazole 40 mg tablet,delayed release RxNorm: 561800 TAKE ONE TABLET BY MOUTH TWICE A DAY AT 7AM AND 9PM 01/06/2018 07/04/2018 Active Phenytek 200 mg capsule RxNorm: 097596 TAKE TWO CAPSULES BY MOUTH DAILY WITH 300 MG CAPSULE TO EQUAL 700 MG TOTAL DAILY 12/11/2017 05/09/2018 Active metoprolol succinate ER 25 mg tablet,extended release 24 hr RxNorm: 018327 Tablet(s) TAKE ONE TABLET BY MOUTH DAILY 12/11/2017 09/06/2018 Active cefdinir 300 mg capsule RxNorm: 924474 1 Capsule(s) PO BID 11/14/2017 11/23/2017 Inactive cefdinir 300 mg capsule RxNorm: 132970 1 Capsule(s) PO BID 11/14/2017 11/13/2017 Inactive Phenergan with Codeine Syrup RxNorm: 5-10 Milliliter(s) PO QID as needed cough 11/11/2017 No Stop Date Active Zithromax Z-Kevin 250 mg tablet RxNorm: 555658 1 Tablet(s) PO UD 11/11/2017 No Stop Date Active prednisone 10 mg tablet RxNorm: 726134 Tablet(s) PO UD 11/11/2017 No Stop Date Active 6,5,4,3,2,1 Kenalog 40 mg/mL suspension for injection RxNorm: 9584839 1.5 Milliliter(s) Inj 11/11/2017 11/11/2017 Inactive metoprolol succinate ER 25 mg tablet,extended release 24 hr RxNorm: 045735 TAKE ONE TABLET BY MOUTH DAILY 09/15/2017 12/10/2017 Inactive Phenytek 300 mg capsule RxNorm: 269083 TAKE ONE CAPSULE BY MOUTH DAILY WITH TWO 200 MG CAPS TO EQUAL 700 MG 09/09/2017 01/21/2018 Inactive Phenytek 200 mg capsule RxNorm: 226325 TAKE TWO CAPSULES BY MOUTH DAILY WITH 300 MG CAPSULE TO EQUAL 700 MG TOTAL DAILY 08/26/2017 12/10/2017 Inactive pantoprazole 40 mg tablet,delayed release RxNorm: 784225 TAKE ONE TABLET BY MOUTH TWICE A DAY AT 7AM AND 9PM 08/11/2017 01/05/2018 Inactive Xarelto 20 mg tablet RxNorm: 3681261 Tablet(s) TAKE ONE TABLET BY MOUTH DAILY 06/25/2017 01/18/2018 Inactive metoprolol succinate ER 25 mg tablet,extended release 24 hr RxNorm: 135116 TAKE ONE TABLET BY MOUTH DAILY 06/20/2017 09/14/2017 Inactive Phenytek 200 mg capsule RxNorm: 475136 TAKE TWO CAPSULES BY MOUTH DAILY WITH 300 MG CAPSULE TO EQUAL 700 MG TOTAL DAILY 06/02/2017 08/25/2017 Inactive metoprolol succinate ER 25 mg tablet,extended release 24 hr RxNorm: 126543 TAKE ONE TABLET BY MOUTH DAILY 03/24/2017 06/19/2017 Inactive Phenytek 300 mg capsule RxNorm: 825997 TAKE ONE CAPSULE BY MOUTH DAILY WITH TWO 200 MG CAPS TO EQUAL 700 MG 03/12/2017 09/07/2017 Inactive Phenytek 200 mg capsule RxNorm: 594250 TAKE TWO CAPSULES BY MOUTH DAILY WITH 300 MG CAPSULE TO EQUAL 700 MG TOTAL DAILY 02/03/2017 06/01/2017 Inactive pantoprazole 40 mg tablet,delayed release RxNorm: 728841 TAKE ONE TABLET BY MOUTH TWICE A DAY AT 7AM AND 9PM 01/27/2017 07/25/2017 Inactive Ventolin HFA 90 mcg/actuation aerosol inhaler RxNorm: 725658 INHALE ONE PUFF BY MOUTH EVERY 4 TO 6 HOURS NEEDED 01/13/2017 03/19/2017 Inactive mupirocin 2 % topical ointment RxNorm: 792678 1 Application TOP BID 12/27/2016 01/05/2017 Inactive Xarelto 20 mg tablet RxNorm: 2407287 TAKE ONE TABLET BY MOUTH DAILY 11/28/2016 06/24/2017 Inactive Xarelto 20 mg tablet RxNorm: 0873218 TAKE ONE TABLET BY MOUTH DAILY 10/18/2016 11/27/2016 Inactive prednisone 10 mg tablet RxNorm: 822758 Tablet(s) PO UD 10/16/2016 10/21/2016 Inactive 6,5,4,3,2,1 prednisone 10 mg tablet RxNorm: 910608 Tablet(s) PO UD 10/16/2016 10/15/2016 Inactive 6,5,4,3,2,1 prednisone 20 mg tablet RxNorm: 465160 2 Tablet(s) PO daily 10/09/2016 10/13/2016 Inactive metoprolol succinate ER 25 mg tablet,extended release 24 hr RxNorm: 857314 TAKE ONE TABLET BY MOUTH DAILY 09/26/2016 03/23/2017 Inactive Phenytek 300 mg capsule RxNorm: 442215 TAKE ONE CAPSULE BY MOUTH DAILY WITH TWO 200 MG CAPS TO EQUAL 700 MG 09/17/2016 03/11/2017 Inactive Phenytek 200 mg capsule RxNorm: 879411 TAKE TWO CAPSULES BY MOUTH DAILY WITH 300 MG CAPSULE TO EQUAL 700 MG TOTAL DAILY 09/03/2016 01/30/2017 Inactive Xarelto 20 mg tablet RxNorm: 2980191 TAKE ONE TABLET BY MOUTH DAILY 07/23/2016 10/17/2016 Inactive pantoprazole 40 mg tablet,delayed release RxNorm: 641050 TAKE ONE TABLET BY MOUTH TWICE A DAY AT 7 AM AND 9 PM 07/02/2016 12/28/2016 Inactive Xarelto 20 mg tablet RxNorm: 2042702 1 Tablet(s) PO daily 03/25/2016 07/22/2016 Inactive Symbicort 160 mcg-4.5 mcg/actuation HFA aerosol inhaler RxNorm: 6550747 2 Puff(s) INH BID 03/11/2016 No Stop Date Active Phenytek 200 mg capsule RxNorm: 623525 TAKE TWO CAPSULES BY MOUTH DAILY WITH 300 MG CAPSULE TO EQUAL 700 MG TOTAL DAILY 03/08/2016 09/02/2016 Inactive prednisone 20 mg tablet RxNorm: 660651 2 Tablet(s) PO daily 02/23/2016 02/27/2016 Inactive Ventolin HFA 90 mcg/actuation aerosol inhaler RxNorm: 560731 1 Puff(s) INH Q4-6H as needed 02/23/2016 01/12/2017 Inactive Augmentin 875 mg-125 mg tablet RxNorm: 508032 1 Tablet(s) PO BID 02/23/2016 02/25/2016 Inactive nystatin 100,000 unit/gram topical powder RxNorm: 658783 1 Gram(s) TOP TID 01/16/2016 01/25/2016 Inactive Phenergan-Codeine 6.25 mg-10 mg/5 mL syrup RxNorm: 179388 5-10 Milliliter(s) PO Q6 as needed cough 12/01/2015 12/26/2016 Inactive Zithromax 250 mg tablet RxNorm: 307530 1 Tablet(s) PO daily 11/23/2015 11/26/2015 Inactive Zithromax 250 mg tablet RxNorm: 762950 1 Tablet(s) PO daily 11/23/2015 11/22/2015 Inactive Zithromax Z-Kevin 250 mg tablet RxNorm: 230582 1 Tablet(s) PO UD 11/20/2015 11/24/2015 Inactive zpack Kenalog 40 mg/mL suspension for injection RxNorm: 5298627 1 Milliliter(s) Inj 11/20/2015 11/20/2015 Inactive Coumadin 4 mg tablet RxNorm: 993662 TAKE TWO TABLETS BY MOUTH EVERY EVENING FOR 3 DAYS, THEN TAKE TAKE ONE TABLET BY MOUTH EVERY EVENING THEREAFTER 11/20/2015 03/10/2016 Inactive hydrochlorothiazide 25 mg tablet RxNorm: 299716 TAKE ONE TABLET BY MOUTH DAILY 10/11/2015 03/10/2016 Inactive triamcinolone acetonide 0.025 % topical ointment RxNorm: 4713350 1 Application TOP BID 09/01/2015 No Stop Date Active nystatin 100,000 unit/gram topical cream RxNorm: 284778 1 Gram(s) TOP BID 09/01/2015 09/08/2016 Inactive Phenytek 300 mg capsule RxNorm: 609625 1 Capsule(s) PO daily take with two 200mg tablets to equal 700mg 09/01/2015 03/28/2016 Inactive nystatin 100,000 unit/gram topical powder RxNorm: 293512 1 Application TOP 09/01/2015 09/01/2015 Inactive Anucort-HC 25 mg suppository RxNorm: 4805086 1 Suppository RTL BID x 1 week then as needed 08/09/2015 No Stop Date Active Phenytek 300 mg capsule RxNorm: 567141 1 Capsule(s) PO daily take with two 200mg tablets to equal 700mg 08/02/2015 08/31/2015 Inactive Phenytek 200 mg capsule RxNorm: 439955 Capsule(s) TAKE TWO CAPSULES BY MOUTH DAILY. TAKE WITH 300MG CAPSULE TO EQUAL 700MG TOTAL DAILY. 08/02/2015 02/27/2016 Inactive lorazepam 1 mg tablet RxNorm: 801966 1 Tablet(s) PO QID as needed seizure activity 06/26/2015 07/25/2015 Inactive Phenytek 200 mg capsule RxNorm: 728527 TAKE TWO CAPSULES BY MOUTH DAILY. TAKE WITH 300MG CAPSULE TO EQUAL 700MG TOTAL DAILY. 05/25/2015 07/23/2015 Inactive Phenytek 200 mg capsule RxNorm: 549761 TAKE TWO CAPSULES BY MOUTH DAILY. TAKE WITH 300MG CAPSULE TO EQUAL 700MG TOTAL DAILY. 05/03/2015 05/24/2015 Inactive hydrochlorothiazide 25 mg tablet RxNorm: 031348 TAKE ONE TABLET BY MOUTH DAILY 03/27/2015 09/22/2015 Inactive hydrochlorothiazide 25 mg tablet RxNorm: 706319 TAKE ONE TABLET BY MOUTH DAILY 03/27/2015 09/22/2015 Inactive Phenytek 300 mg capsule RxNorm: 998854 1 Capsule(s) PO daily take with 2 200mg tablets to equal 700mg 01/04/2015 08/01/2015 Inactive Coumadin 1 mg tablet RxNorm: 423430 TAKE 1 TABLET BY MOUTH DOCTOR DIRECTED 12/19/2014 03/18/2015 Inactive Coumadin 4 mg tablet RxNorm: 606942 1 Tablet(s) PO QPM when starting, pt to take 4mg two pills nightly x 3 nights then take one pill daily) 12/05/2014 06/25/2015 Inactive Phenytek 200 mg capsule RxNorm: 275665 TAKE TWO CAPSULES BY MOUTH DAILY. TAKE WITH 300MG CAPSULE TO EQUAL 700MG TOTAL DAILY. 11/08/2014 05/02/2015 Inactive metronidazole 500 mg tablet RxNorm: 434199 1 Tablet(s) PO TID 11/01/2014 11/10/2014 Inactive hydrochlorothiazide 25 mg tablet RxNorm: 757055 1 Tablet(s) PO daily 2014 03/26/2015 Inactive Coumadin 1 mg tablet RxNorm: 603407 TAKE 1 TABLET BY MOUTH DOCTOR DIRECTED 08/19/2014 10/31/2014 Inactive Coumadin 1 mg tablet RxNorm: 644477 1 Tablet(s) PO as doctor directed 07/21/2014 08/18/2014 Inactive Coumadin 1 mg tablet RxNorm: 037972 1 Tablet(s) PO as doctor directed 07/21/2014 07/20/2014 Inactive hydrochlorothiazide 12.5 mg tablet RxNorm: 757125 1 Tablet(s) PO daily 06/15/2014 08/28/2014 Inactive Coumadin 5 mg tablet RxNorm: 779697 1 Tablet(s) PO QPM 05/12/2014 10/31/2014 Inactive check lab in 2 weeks Bactrim DS 800 mg-160 mg tablet RxNorm: 479894 1 Tablet(s) PO BID 05/10/2014 05/09/2014 Inactive start after UA given to lab Bactrim DS 800 mg-160 mg tablet RxNorm: 797528 1 Tablet(s) PO BID 05/10/2014 05/16/2014 Inactive start after UA given to lab today Keflex 500 mg capsule RxNorm: 103069 1 Capsule(s) PO TID 04/26/2014 05/05/2014 Inactive Phenytek 300 mg capsule RxNorm: 378054 1 Capsule(s) PO daily 03/29/2014 03/28/2014 Inactive Phenytek 300 mg capsule RxNorm: 194293 1 Capsule(s) PO daily take with 2 200mg tablets to equal 700mg 03/29/2014 10/24/2014 Inactive Phenytek 200 mg capsule RxNorm: 520647 2 Capsule(s) PO daily take with a 300mg capsule to equal 700mg daily 03/29/2014 10/24/2014 Inactive Coumadin 4 mg tablet RxNorm: 991959 1 Tablet(s) PO QPM when starting, pt to take 4mg two pills nightly x 3 nights then take one pill daily) 03/29/2014 05/11/2014 Inactive hydrochlorothiazide 12.5 mg tablet RxNorm: 460644 1 Tablet(s) PO daily 03/29/2014 06/14/2014 Inactive Aspirin Low Dose 81 mg tablet,delayed release RxNorm: 701750 1 Tablet(s) PO daily No Start Date Active Phenergan-Codeine 6.25 mg-10 mg/5 mL syrup RxNorm: 103958 5-10 Milliliter(s) PO Q6 as needed cough No Start Date 11/30/2015 Inactive pantoprazole 40 mg tablet,delayed release RxNorm: 044387 1 Tablet(s) PO daily No Start Date 07/01/2016 Inactive Xarelto 20 mg tablet RxNorm: 7610765 Tablet(s) PO No Start Date 03/24/2016 Inactive 15mg BID x 21 days then 20mg daily lorazepam 0.5 mg tablet RxNorm: 694301 1 Tablet(s) PO as doctor directed for seizures No Start Date 06/25/2015 Inactive Symbicort 160 mcg-4.5 mcg/actuation HFA aerosol inhaler RxNorm: 1132946 inhalation No Start Date 03/10/2016 Inactive Phenytek oral RxNorm: 517733 oral No Start Date 03/28/2014 Inactive metoprolol succinate ER 25 mg tablet,extended release 24 hr RxNorm: 365049 1 Tablet(s) PO daily No Start Date 09/25/2016 Inactive aspirin 325 mg tablet,delayed release RxNorm: 144783 1 Tablet(s) PO QHS No Start Date 03/04/2016 Inactive Medication Administered Medication Codes Instructions Start Date Status Kenalog 40 mg/mL suspension for injection RxNorm: 1365866 1.5Milliliter 11/11/2017 No longer Active Kenalog 40 mg/mL suspension for injection RxNorm: 5278472 1Milliliter 11/20/2015 No longer Active Immunizations Vaccine Codes Date Status Tetanus, Diptheria, Pertussis CVX: 113 09/10/2017 completed Tetanus/Diptheria CVX: 113 09/10/2017 completed Influenza CVX: 141 04/23/2016 completed Assessments Condition Codes Effective Dates Anemia, unspecified ICD-10: D64.9 ICD-9: 285.9 11/25/2017 Other allergic rhinitis ICD-10: J30.89 ICD-9: 477.8 11/11/2017 Cough ICD-10: R05 ICD-9: 786.2 11/11/2017 Other [...] 02/23/2016 Wheezing ICD-10: R06.2 ICD-9: 786.07 02/23/2016 Morbid (severe) obesity due to excess calories ICD-10: E66.01 ICD-9: 278.01 12/26/2015 Allergic rhinitis due to pollen ICD-10: J30.1 ICD-9: 477.0 11/20/2015 Acute upper respiratory infection, unspecified ICD-10: J06.9 ICD-9: 465.9 11/20/2015 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 ICD-10: Z79.899 ICD-9: V58.69 09/08/2015 Candidiasis of skin and nail ICD-10: B37.2 ICD-9: 112.3 09/01/2015 First degree hemorrhoids ICD-10: K64.0 ICD-9: 455.6 08/09/2015 Encounter for therapeutic drug level monitoring ICD-10: Z51.81 ICD-9: V58.61 02/03/2015 Obesity, unspecified ICD-10: E66.9 ICD-9: 278.00 01/02/2015 [...] For Visit Effective Dates Notes sinus congestion 11/11/2017 weight gain/obesity 10/17/2017 weight [...] Item Item Code Result Date Comp Metabolic Bnt063 NA 141 mEq/L 09/09/2016 Comp Metabolic Usk840 K 3.8 mEq/L 09/09/2016 Comp Metabolic Dcm660 CL 108 mEq/L 09/09/2016 Comp Metabolic Jsg970 CO2 24.0 mEq/L 09/09/2016 Comp Metabolic Vix326 ANION GAP 13 09/09/2016 Comp Metabolic Zay167 GLUCOSE 134 mg/dL 09/09/2016 Comp Metabolic Xph012 Creat 0.8 mg/dL 09/09/2016 Comp Metabolic Uvw069 eGFR 113 ml/min/1.73m2 09/09/2016 Comp Metabolic Mbo233 BUN 16 mg/dL 09/09/2016 Comp Metabolic Znu189 B/C Ratio 21.1 Ratio 09/09/2016 Comp Metabolic Lgz297 CALCIUM 8.8 mg/dL 09/09/2016 Comp Metabolic Npf808 ALK PHOS 111 U/L 09/09/2016 Comp Metabolic Pcp802 AST(SGOT) 16 U/L 09/09/2016 Comp Metabolic Xul863 ALT(SGPT) 16 U/L 09/09/2016 Comp Metabolic Hsq916 BILI T 0.4 mg/dL 09/09/2016 Comp Metabolic Ula297 ALBUMIN 3.8 g/dL 09/09/2016 Comp Metabolic Cdt519 TPRO 7.0 g/dL 09/09/2016 Comp Metabolic Qlf884 GLOB 3.2 g/dL 09/09/2016 Comp Metabolic Fvg719 A/G Ratio 1.2 Ratio 09/09/2016 Comp Metabolic Ctu166 Osmo 284 mOsmo 09/09/2016 Cbc With Differential [...] 28.4 % 09/09/2016 Cbc With Differential Ord2 Bartholomew% 10.2 % 09/09/2016 Cbc With Differential Ord2 [...] 1.83 K/ul 09/09/2016 Cbc With Differential Ord2 Bartholomew ABS# 0.7 K/ul 09/09/2016 Cbc With Differential [...] 34.3 pg 12/26/2015 Cbc With Differential Ord2 Bartholomew% 8.7 % 12/26/2015 Cbc With Differential Ord2 [...] 1.71 K/ul 12/26/2015 Cbc With Differential Ord2 Bartholomew ABS# 0.7 K/ul 12/26/2015 Cbc With Differential Ord2 Eos ABS# 0.1 K/ul 12/26/2015 Cbc With Differential Ord2 Baso ABS# 0.0 K/ul 12/26/2015 Tsh Ord6 hTSH II 2.81 uIU/mL 12/26/2015 Comp Metabolic Smj107 NA 137 mEq/L 12/26/2015 Comp Metabolic Uqj921 K 4.3 mEq/L 12/26/2015 Comp Metabolic Drj825 CL 101 mEq/L 12/26/2015 Comp Metabolic Ttd239 CO2 27.0 mEq/L 12/26/2015 Comp Metabolic Dhu649 ANION GAP 13 12/26/2015 Comp Metabolic Ngj929 GLUCOSE 128 mg/dL 12/26/2015 Comp Metabolic Het334 Creat 0.8 mg/dL 12/26/2015 Comp Metabolic Xry891 eGFR 104 ml/min/1.73m2 12/26/2015 Comp Metabolic Okq107 BUN 16 mg/dL 12/26/2015 Comp Metabolic Vek802 B/C Ratio 19.5 Ratio 12/26/2015 Comp Metabolic Guu316 CALCIUM 9.2 mg/dL 12/26/2015 Comp Metabolic Yzy543 ALK PHOS 107 U/L 12/26/2015 Comp Metabolic Fuf061 AST(SGOT) 15 U/L 12/26/2015 Comp Metabolic Edt948 ALT(SGPT) 15 U/L 12/26/2015 Comp Metabolic Ldd146 BILI T 0.4 mg/dL 12/26/2015 Comp Metabolic Dhs574 ALBUMIN 4.0 g/dL 12/26/2015 Comp Metabolic Jmb788 TPRO 7.6 g/dL 12/26/2015 Comp Metabolic Asr829 GLOB 3.6 g/dL 12/26/2015 Comp Metabolic Mgl467 A/G Ratio 1.1 Ratio 12/26/2015 Comp Metabolic Pqe088 Osmo 277 mOsmo 12/26/2015 Dilantin Ord7 DILANTIN 17.3 UG/ML 12/26/2015 Dilantin Ord7 DILANTIN 16.5 UG/ML 09/15/2015 Dilantin Ord7 DILANTIN 17.2 UG/ML 09/08/2015 Dilantin Ord7 DILANTIN 22.3 UG/ML 09/01/2015 Review of Systems System Result Effective Dates Constitutional recent illness 11/11/2017 Constitutional No chills [...] J3301 11/11/2017 OCCULT BLOOD FECES CPT- 4: 33715 10/28/2017 TRIAMCINOLONE ACET INJ NOS CPT-4: J3301 11/20/2015 Vital Signs Date Vital 11/11/2017 Blood Pressure 1: 144/82 Code: 8480-6 BMI: 47.1 Code: 46828-8 Heart Rate 1: 73 bpm Height: 5'11" SpO2: 94% Temperature: 36.9 (C) / 98.5 (F) Weight: 338 lbs 10/17/2017 Blood Pressure 1: 136/78 Code: 8480-6 BMI: 47.1 Code: 37934-2 Heart Rate 1: 82 bpm Height: 5'11" SpO2: 96% Weight: 338 lbs 06/06/2017 Blood Pressure 1: 138/76 Code: 8480-6 BMI: 47.4 Code: 30619-7 Heart Rate 1: 76 bpm Height: 5'11" SpO2: 96% Weight: 340 lbs 04/11/2017 Blood Pressure 1: 142/80 Code: 8480-6 Heart Rate 1: 79 bpm Height: 5'11" SpO2: 96% 01/27/2017 Blood Pressure 1: 146/86 Code: 8480-6 BMI: 47.1 Code: 05056-5 Heart Rate 1: 97 bpm Height: 5'11" SpO2: 95% Weight: 338 lbs 12/27/2016 Blood Pressure 1: 154/74 Code: 8480-6 BMI: 48.5 Code: 30231-9 Heart Rate 1: 82 bpm Height: 5'11" SpO2: 96% Weight: 348 lbs 10/09/2016 Blood Pressure 1: 160/82 Code: 8480-6 BMI: 47.4 Code: 20162-1 Heart Rate 1: 77 bpm Height: 5'11" SpO2: 96% Weight: 340 lbs 09/09/2016 Blood Pressure 1: 140/80 Code: 8480-6 Heart Rate 1: 88 bpm Height: 5'11" SpO2: 96% Weight: 05/31/2016 Blood Pressure 1: 126/78 Code: 8480-6 BMI: 46.3 Code: 22280-6 Heart Rate 1: 75 bpm Height: 5'11" SpO2: 96% Weight: 332 lbs 03/29/2016 Blood Pressure 1: 146/78 Code: 8480-6 Heart Rate 1: 78 bpm Height: 5'11" SpO2: 97% Weight: 03/11/2016 Blood Pressure 1: 136/86 Code: 8480-6 BMI: 44.4 Code: 66226-2 Heart Rate 1: 77 bpm Height: 5'11" SpO2: 96% Weight: 318 lbs 02/23/2016 Blood Pressure 1: 146/94 Code: 8480-6 BMI: 44.4 Code: 71307-2 Heart Rate 1: 90 bpm Height: 5'11" SpO2: 93% Weight: 318 lbs 01/16/2016 Blood Pressure 1: 140/86 Code: 8480-6 BMI: 44.6 Code: 12457-1 Heart Rate 1: 75 bpm Height: 5'11" SpO2: 96% Weight: 320 lbs 12/26/2015 Blood Pressure 1: 130/78 Code: 8480-6 BMI: 43.7 Code: 57480-0 Heart Rate 1: 96 bpm Height: 5'11" SpO2: 98% Weight: 313 lbs 11/20/2015 Blood Pressure 1: 137/92 Code: 8480-6 Heart Rate 1: 84 bpm Height: SpO2: 98% Temperature: 36.7 (C) / 98.0 (F) Weight: 09/01/2015 Blood Pressure 1: 148/88 Code: 8480-6 BMI: 43.8 Code: 49252-3 Heart Rate 1: 73 bpm Height: 5'11" SpO2: 97% Weight: 314 lbs 08/09/2015 Blood Pressure 1: 138/78 Code: 8480-6 BMI: 45.0 Code: 68009-8 Heart Rate 1: 75 bpm Height: 5'11" SpO2: 98% Weight: 323 lbs 06/26/2015 Blood Pressure 1: 134/80 Code: 8480-6 BMI: 46.3 Code: 78865-1 Heart Rate 1: 78 bpm Height: 5'11" SpO2: 96% Weight: 332 lbs 11/18/2014 Blood Pressure 1: 130/78 Code: 8480-6 BMI: 44.4 Code: 17893-5 Heart Rate 1: 66 bpm Height: 5'11" SpO2: 98% Weight: 318 lbs 11/01/2014 Blood Pressure 1: 130/78 Code: 8480-6 BMI: 44.5 Code: 71632-9 Heart Rate 1: 78 bpm Height: 5'11" SpO2: 97% Weight: 319 lbs 10/27/2014 Blood Pressure 1: 152/88 Code: 8480-6 BMI: 43.9 Code: 54556-7 Heart Rate 1: 91 bpm Height: 5'11" SpO2: 98% Weight: 315 lbs 2014 Blood Pressure 1: 140/82 Code: 8480-6 BMI: 44.9 Code: 02376-6 Heart Rate 1: 78 bpm Height: 5'11" Weight: 322 lbs 05/05/2014 Blood Pressure 1: 142/88 Code: 8480-6 BMI: 40.9 Code: 61936-3 Heart Rate 1: 64 bpm Height: 5'11" Temperature: 37.3 (C) / 99.1 (F) Weight: 293 lbs 04/26/2014 Blood Pressure 1: 142/82 Code: 8480-6 BMI: 40.2 Code: 73139-5 Heart Rate 1: 64 bpm Height: 5'11" Weight: 288 lbs 03/29/2014 Blood Pressure 1: 138/84 Code: 8480-6 BMI: 39.3 Code: 90658-7 Heart Rate 1: 84 bpm Height: 5'11" Weight: 282 lbs Functional Status No Functional Status data History of Present Illness Symptom Name Status Result Effective Date Notes sinus congestion Location frontal sinuses 11/11/2017 None [...] data Encounters Encounter Performer Location Codes Date 93635 EST. PATIENT, LEVEL III Diagnosis: Other acute sinusitis[ICD10: J01.80] Diagnosis: Other allergic rhinitis[ICD10: J30.89] Diagnosis: Cough[ICD10: R05] Elsie Salamanca MD, [facility] CPT-4: 35414 11/11/2017 [id number] EST. PATIENT, LEVEL IV Diagnosis: Essential (primary) hypertension[ICD10: I10] Diagnosis: Epilepsy, unspecified, not intractable, without status epilepticus[ICD10: G40.909] Elsie Salamanca MD, [facility] CPT-4: 99084 10/17/2017 [id number] EST. PATIENT, LEVEL IV Diagnosis: Essential (primary) hypertension[ICD10: I10] Diagnosis: Epilepsy, unspecified, not intractable, without status epilepticus[ICD10: G40.909] Elsie Salamanca MD, [facility] CPT-4: 84393 06/06/2017 14230 EST. PATIENT, LEVEL IV Diagnosis: Essential (primary) hypertension[ICD10: I10] Diagnosis: Epilepsy, unspecified, not intractable, without status epilepticus[ICD10: G40.909] Elsie Salamanca MD, [facility] CPT-4: 14067 04/11/2017 ([id number]) 31706 EST. PATIENT, LEVEL III Diagnosis: Essential (primary) hypertension[ICD10: I10] Diagnosis: Epilepsy, unspecified, not intractable, without status epilepticus[ICD10: G40.909] Leelee Salamanca MD, [facility] CPT-4: 61367 01/27/2017 ([id number]) 24124 EST. PATIENT, LEVEL IV Diagnosis: Essential (primary) hypertension[ICD10: I10] Diagnosis: Epilepsy, unspecified, not intractable, without status epilepticus[ICD10: G40.909] Diagnosis: Pain in right wrist[ICD10: M25.531] Leelee Salamanca MD, [facility] CPT-4: 39164 12/27/2016 [id number] EST. PATIENT, LEVEL III Diagnosis: Rash and other nonspecific skin eruption[ICD10: R21] Elsie Salamanca MD, [facility] CPT-4: 36764 10/09/2016 ([id number]) 72183 EST. PATIENT, LEVEL III Diagnosis: Carpal tunnel syndrome, right upper limb[ICD10: G56.01] Diagnosis: Olecranon bursitis, right elbow[ICD10: M70.21] Betty Salamanca MD, [facility] CPT-4: 88910 09/09/2016 ([id number]) 27514 EST. PATIENT, LEVEL III Diagnosis: Essential (primary) hypertension[ICD10: I10] Diagnosis: Low back pain[ICD10: M54.5] Leelee Salamanca MD, [facility] CPT-4: 79564 05/31/2016 ([id number]) [id number] EST. PATIENT, LEVEL III Diagnosis: Essential (primary) hypertension[ICD10: I10] Diagnosis: Slow transit constipation[ICD10: K59.01] Leelee Salamanca MD, [facility] CPT-4: 58159 03/29/2016 ([id number]) 87424 EST. 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 CPT-4: 74843 03/11/2016 [id number] EST. PATIENT, LEVEL III Diagnosis: Acute laryngopharyngitis[ICD10: J06.0] Diagnosis: Other allergic rhinitis[ICD10: J30.89] Diagnosis: Cough[ICD10: R05] Diagnosis: Wheezing[ICD10: R06.2] Elsie Salamanca MD, [facility] CPT-4: 70968 02/23/2016 ([id number]) 97793 EST. PATIENT, LEVEL III Diagnosis: Epilepsy, unspecified, not intractable, without status epilepticus[ICD10: G40.909] Betty Salamanca MD, [facility] CPT-4: 37461 01/16/2016 ([id number]) 31086 EST. PATIENT, LEVEL IV Diagnosis: Essential (primary) hypertension[ICD10: I10] Diagnosis: Morbid (severe) obesity due to excess calories[ICD10: E66.01] Diagnosis: Epilepsy, unspecified, not intractable, without status epilepticus[ICD10: G40.909] Betty Salamanca MD, [facility] CPT-4: 65225 12/26/2015 ([id number]) 13634 EST. PATIENT, LEVEL III Diagnosis: Allergic rhinitis due to pollen[ICD10: J30.1] Diagnosis: Acute upper respiratory infection, unspecified[ICD10: J06.9] Leelee Salamanca MD, [facility] CPT-4: 14945 11/20/2015 53759 EST. PATIENT, LEVEL IV Diagnosis: Other chcf (current) drug therapy[ICD10: Z79.899] Diagnosis: Candidiasis of skin and nail[ICD10: B37.2] Elsie Salamanca MD, [facility] CPT-4: 65183 09/01/2015 ([id number]) 83706 EST. PATIENT, LEVEL IV Diagnosis: Epilepsy, unspecified, not intractable, without status epilepticus[ICD10: G40.909] Diagnosis: Essential (primary) hypertension[ICD10: I10] Diagnosis: First degree hemorrhoids[ICD10: K64.0] Diagnosis: Low back pain[ICD10: M54.5] Betty Salamanca MD, [facility] CPT-4: 00050 08/09/2015 ([id number]) 48163 EST. PATIENT, LEVEL IV Diagnosis: Essential (primary) hypertension[ICD10: I10] Diagnosis: Morbid (severe) obesity due to excess calories[ICD10: E66.01] Diagnosis: Epilepsy, unspecified, not intractable, without status epilepticus[ICD10: G40.909] Betty Salamanca MD [facility] CPT-4: 80318 06/26/2015 ([id number]) 83069 EST. PATIENT, LEVEL IV Diagnosis: ESSENTIAL HYPERTENSION[ICD9: 401.9] Diagnosis: Small bowel obstruction[ICD9: 560.9] Diagnosis: Hospital discharge follow-up[ICD9: V67.59] Betty Salamanca MD [facility] CPT-4: 29314 11/18/2014 ([id number]) 83686 EST. PATIENT, LEVEL III Diagnosis: Diarrhea[ICD9: 787.91] Diagnosis: Abdominal pain[ICD9: 789.00] Betty Salamanca MD, [facility] CPT-4: 09733 11/01/2014 ([id number]) 60321 EST. PATIENT, LEVEL III Diagnosis: ESSENTIAL HYPERTENSION[ICD9: 401.9] Diagnosis: Diarrhea[ICD9: 787.91] Leelee Salamanca MD, [facility] CPT-4: 09949 10/27/2014 ([id number]) 12334 EST. PATIENT, LEVEL IV Diagnosis: Factor V Leiden mutation[ICD9: 289.81] Diagnosis: Hx of deep venous thrombosis[ICD9: V12.51] Diagnosis: ESSENTIAL HYPERTENSION[ICD9: 401.9] Diagnosis: OBESITY[ICD9: 278.00] Betty Salamanca MD, [facility] CPT-4: 92476 2014 ([id number]) 69432 EST. PATIENT, LEVEL III Diagnosis: Hematuria[ICD9: 599.70] Diagnosis: LONG-TERM USE ANTICOAGUL[ICD9: V58.61] Leelee Salamanca MD, [facility] CPT-4: 08481 05/05/2014 ([id number]) 00202 EST. PATIENT, LEVEL IV Diagnosis: ESSENTIAL HYPERTENSION[ICD9: 401.9] Diagnosis: LONG-TERM USE ANTICOAGUL[ICD9: V58.61] Diagnosis: MORBID OBESITY[ICD9: 278.01] Diagnosis: Abscess and cellulitis[ICD9: 682.9] [facility] CPT- 4: 10586 04/26/2014 ([id number]) OFFICE VISIT, NEW - LEVEL 4 Diagnosis: ESSENTIAL HYPERTENSION[ICD9: 401.9] Diagnosis: LONG-TERM USE ANTICOAGUL[ICD9: V58.61] [facility] CPT-4: 34788 03/29/2014 Plan of Care Planned Activity Notes Codes Status Date Patient Education: Patient Medication Summary Completed 11/25/2017 [...] allergy spray. 11/11/2017 Appointment: Elsie Mosquera WPtel: [address] [place], [place] [id number] (15 min) Moderate 11/11/2017 Patient Education: Patient Medication Summary Completed 11/11/2017 Appointment: Lab Draw 10/28/2017 Patient Education: Patient Medication Summary Completed 10/28/2017 Patient Education: Patient Medication Summary Completed 10/20/2017 Care Plan: Cbc With Differential Pending 10/20/2017 Care Plan: Comp Metabolic Pending 10/20/2017 Care Plan: Tsh Pending 10/20/2017 Care Plan: Lipid Pending 10/20/2017 Care Plan: Total Psa Pending 10/20/2017 Care Plan: Dilantin Pending 10/20/2017 Visit Plan: Hypertension - continue [...] check. 10/17/2017 Appointment: Elsie Mosquera WPtel: [phone] [phone] (15 min) Moderate 10/17/2017 Patient Education: Patient Medication Summary Completed 10/17/2017 Appointment: Elsie Mosqueratel: [phone] [phone] (15 min) Moderate 10/07/2017 Care Plan: BMI Above normal followup SELF-MGMT EDUC & TRAIN 1 PT Pending 06/09/2017 Visit Plan: Hypertension - improved - continue with current medications, continue with no added salt diet. Pt has been encouraged to exercise daily. The pt has been advised to call the office if there are any ac [place] concerns about change in blood pressure readings at home. Epilepsy- controlled, no changes, continue to monitor Obesity - chronic issue with this patient. The pt has been counseled about diet changes, calorie restriction, and need to exercise. Pt will RTC in one month for weight check. 06/06/2017 Appointment: Elsie Mosquera WPtel: [phone] [phone] (30 min) Complex 06/06/2017 Patient Education: Patient [...] the office if there are any ac [place] concerns about change in blood pressure readings at home. Epilepsy- controlled, no changes, continue to monitor Obesity - chronic issue with this patient. The pt has been counseled about diet changes, calorie restriction, and need to exercise. Pt will RTC in one month for weight check. 04/11/2017 Appointment: Elsie Mosquera WPtel: [phone] (30 min) Complex 04/11/2017 Patient Education: Patient Medication Summary Completed 04/11/2017 Patient Education: Obesity Completed 04/11/2017 Appointment: Elsie Mosquera WPtel: [phone] (30 min) Complex 04/01/2017 Visit Plan: Hypertension - improved - continue with current medications, continue with no added salt diet. Pt has been encouraged to exercise daily. The pt has been advised to call the office if there are any ac [place] concerns about change in blood pressure readings at home. Obesity-lost 10#- continue diet/exercise Epilepsy-check dilantin level 01/27/2017 Appointment: Leelee Weinstein WPtel: [phone] (30 min) Complex 01/27/2017 Patient Education: Patient [...] Dr Ordaz 12/27/2016 Appointment: Leelee Weinstein WPtel: [phone] (30 min) Complex 12/27/2016 Patient Education: Patient Medication Summary Completed 12/27/2016 Care Plan: Referral Order SNOMED-CT : [id number] Pending 12/27/2016 Visit Plan: Rash - pt [...] Completed 10/09/2016 Appointment: Leelee Weinstein WPtel: [phone] (30 min) Complex 10/04/2016 Visit Plan: on the rash on your foot, use benadryl cream mixed with cortisone cream - use a jerica size portion of both Carpal tunnel -wear a carpal tunnel brace at night and a tennis elbow brace during the day use aspercreme on your elbow and wrist at least twice a day 09/09/2016 Appointment: Betty Salamanca WPtel: [address] [place], [place] [phone] (15 min) Moderate 09/09/2016 Patient Education: Patient [...] not improve. 05/31/2016 Appointment: Leelee Weinstein WPtel: [phone] (30 min) Complex 05/31/2016 Patient Education: Patient Medication Summary Completed 05/31/2016 Patient Education: Obesity Completed 05/31/2016 Patient Education: Hypertension Completed 05/31/2016 Appointment: Leelee Weinstein WPtel: [phone] (30 min) Complex 04/01/2016 Visit Plan: Hypertension [...] of plan. 03/29/2016 Appointment: Leelee Weinstein WPtel: [address] [place], [place] [phone] (15 min) Moderate 03/29/2016 Patient Education: Patient Medication Summary Completed 03/29/2016 Patient Education: Hypertension Completed 03/29/2016 Visit Plan: Bilateral -hospital follow up-on xarelto-symptoms improving Rbuth-azabijiduh-qirlomnn-continue symbicort twice daily as directed Hypertension - well controlled - continue with current medications, continue with no added salt diet. Pt has been encouraged to exercise daily. The pt has been advised to call the office if there are any acute concerns about change in blood pressure readings at home. 03/11/2016 Appointment: Leelee Weinstein WPtel: [phone] (30 min) Complex 03/11/2016 Patient Education: Patient [...] allergy spray. 02/23/2016 Appointment: Elsie Mosquera WPtel: [facility]66[facility] (15 min) Moderate 02/23/2016 Patient Education: Patient Medication Summary Completed 02/23/2016 Patient Education: Obesity Completed 02/23/2016 Visit Plan: Epilepsy - continue with phenytek wound improving 01/16/2016 Appointment: Betty Salamanca WPtel: [facility]66[facility] (15 min) Moderate 01/16/2016 Patient Education: [...] anti-epileptic 12/26/2015 Appointment: Betty Salamanca WPtel: [id number] (15 min) Moderate 12/26/2015 Patient Education: Patient [...] resolve 11/20/2015 Appointment: Leelee Weinstein WPtel: [phone] (15 min) Moderate 11/20/2015 Patient Education: Patient [...] pain. 09/01/2015 Appointment: Leelee Weinstein WPtel: [facility] [address] (30 min) Complex 09/01/2015 Patient Education: Patient Medication Summary Completed 09/01/2015 Referral: Ady Oswald WPtel:[phone] Referral Completed 08/30/2015 Visit Plan: Hypertension - [...] 08/09/2015 Care Plan: Referral Order SNOMED-CT : [id number] Pending 07/12/2015 Visit Plan: Hypertension - well [...] flagyl. 11/01/2014 Appointment: Betty Sal[facility]anca [phone] [place] (15 min) Moderate 11/01/2014 Patient Education: Patient [...] - 2014 Appointment: Betty Salamanca [facility]el[phone] [place] Follow up 2014 Patient Education: Patient Medication Summary Completed 2014 Patient Education: Hypertension Completed 2014 Care Plan: Referral Order SNOMED-CT : [id number] Ordered 2014 Visit Plan: Hematuria-per patient report-no [...] weight check. 04/26/2014 Appointment: Betty Salamanca WPtel: [address] [place], [place] [phone] Follow up 04/26/2014 Patient Education: Patient Medication [...] and 3.5. 03/29/2014 Appointment: Betty Salamanca WPtel: [phone] [facility] [place] New Patient 03/29/2014 Patient Education: Patient Medication Summary Completed 03/29/2014 Patient Education: Hypertension Completed 03/29/2014 Referral: Madhu Hall MD WPtel: [facility] [address] [id number] [place] Referral Completed Referral: Edilson Ordaz [place] Referral Appointment Requested Referral: Ady Oswald WPtel:[phone] Referral Appointment Requested Instructions Comment . Sinusitis - Pt has acute infection [...] appt Right wrist pain-refer to Dr Ordaz increase hctz to 25mg daily. . Hypertension [...] TODAY DUE TO BLOOD IN URINE. . Hypertension - improved - continue with [...] take if symptoms do not resolve . Rash - pt is to use [...] is worsening or does not improve. . Hypertension - well controlled - continue [...] up on this patient's medical condition. . Candidal rash in left axilla - [...] between 2.0 and 3.5. . Hypertension - elevated today but well [...] spray in the nasal steroid allergy spray. on the rash on your foot, use [...] . Bilateral PE-hospital follow up-on xarelto-symptoms improving Xxrbm-mgulbiqele-vbjfqhio-continue symbicort twice daily as directed Hypertension - well controlled - continue with current medications, continue with no added salt diet. Pt has been encouraged to exercise daily. The pt has been advised to call the office if there are any acute concerns about change in blood pressure readings at home. Repeat dilantin level in august . Hypertension [...]
--- OUTSIDE RECORDS SUMMARY | 2018-09-06 06:41 | XMS REPORT | CCD ---
Author Author [facility] Organization [facility] Address [address] [place] [address] Phone Care Team Providers Care Assistant Professor Sculpture Name Role Phone PP Unavailable CCM Unavailable Summary Purpose Interface Exchange Insurance Providers Payer name Policy type / Coverage type Covered libertarian ID Effective Begin Date Effective End Date Blue Cross [facility] Blue Cross/Blue Shield [id number] Unknown Unknown Family history Father Diagnosis Age At Onset Coronary Artery Disease Unknown Mother Diagnosis Age At Onset Cancer Unknown Cancer Unknown Social History Social History Element Codes Description Effective Dates Number of children Unknown 0 06/26/2015 Employment Unknown 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 [employer] 06/26/[address]: 607300637 Never smoker 06/26/[address]: 152291174 Never drinks alcohol 06/26/2015 Marital status Unknown [...] ICD-9: 477.0 ICD-10: J30.1 11/19/2015 Active Other correction (current) drug therapy ICD-9: V58.69 ICD-10: Z79.899 [...] Instructions pantoprazole 40 mg tablet,delayed release RxNorm: 065044 TAKE ONE TABLET BY MOUTH TWICE A DAY AT 7AM AND 9PM 01/06/2018 07/04/2018 Active Phenytek 200 mg capsule RxNorm: 592258 TAKE TWO CAPSULES BY MOUTH DAILY WITH 300 MG CAPSULE TO EQUAL 700 MG TOTAL DAILY 12/11/2017 05/09/2018 Active metoprolol succinate ER 25 mg tablet,extended release 24 hr RxNorm: 883013 Tablet(s) TAKE ONE TABLET BY MOUTH DAILY 12/11/2017 09/06/2018 Active cefdinir 300 mg capsule RxNorm: 560298 1 Capsule(s) PO BID 11/14/2017 11/23/2017 Inactive cefdinir 300 mg capsule RxNorm: 797610 1 Capsule(s) PO BID 11/14/2017 11/13/2017 Inactive Phenergan with Codeine Syrup RxNorm: 5-10 Milliliter(s) PO QID as needed cough 11/11/2017 No Stop Date Active Zithromax Z-Kevin 250 mg tablet RxNorm: 213512 1 Tablet(s) PO UD 11/11/2017 No Stop Date Active prednisone 10 mg tablet RxNorm: 507407 Tablet(s) PO UD 11/11/2017 No Stop Date Active 6,5,4,3,2,1 Kenalog 40 mg/mL suspension for injection RxNorm: 6164288 1.5 Milliliter(s) Inj 11/11/2017 11/11/2017 Inactive metoprolol succinate ER 25 mg tablet,extended release 24 hr RxNorm: 183664 TAKE ONE TABLET BY MOUTH DAILY 09/15/2017 12/10/2017 Inactive Phenytek 300 mg capsule RxNorm: 853956 TAKE ONE CAPSULE BY MOUTH DAILY WITH TWO 200 MG CAPS TO EQUAL 700 MG 09/09/2017 02/05/2018 Active Phenytek 200 mg capsule RxNorm: 937385 TAKE TWO CAPSULES BY MOUTH DAILY WITH 300 MG CAPSULE TO EQUAL 700 MG TOTAL DAILY 08/26/2017 12/10/2017 Inactive pantoprazole 40 mg tablet,delayed release RxNorm: 168431 TAKE ONE TABLET BY MOUTH TWICE A DAY AT 7AM AND 9PM 08/11/2017 01/05/2018 Inactive Xarelto 20 mg tablet RxNorm: 2176432 Tablet(s) TAKE ONE TABLET BY MOUTH DAILY 06/25/2017 01/20/2018 Active metoprolol succinate ER 25 mg tablet,extended release 24 hr RxNorm: 696278 TAKE ONE TABLET BY MOUTH DAILY 06/20/2017 09/14/2017 Inactive Phenytek 200 mg capsule RxNorm: 829407 TAKE TWO CAPSULES BY MOUTH DAILY WITH 300 MG CAPSULE TO EQUAL 700 MG TOTAL DAILY 06/02/2017 08/25/2017 Inactive metoprolol succinate ER 25 mg tablet,extended release 24 hr RxNorm: 405666 TAKE ONE TABLET BY MOUTH DAILY 03/24/2017 06/19/2017 Inactive Phenytek 300 mg capsule RxNorm: 164099 TAKE ONE CAPSULE BY MOUTH DAILY WITH TWO 200 MG CAPS TO EQUAL 700 MG 03/12/2017 09/07/2017 Inactive Phenytek 200 mg capsule RxNorm: 116049 TAKE TWO CAPSULES BY MOUTH DAILY WITH 300 MG CAPSULE TO EQUAL 700 MG TOTAL DAILY 02/03/2017 06/01/2017 Inactive pantoprazole 40 mg tablet,delayed release RxNorm: 834337 TAKE ONE TABLET BY MOUTH TWICE A DAY AT 7AM AND 9PM 01/27/2017 07/25/2017 Inactive Ventolin HFA 90 mcg/actuation aerosol inhaler RxNorm: 559477 INHALE ONE PUFF BY MOUTH EVERY 4 TO 6 HOURS NEEDED 01/13/2017 03/19/2017 Inactive mupirocin 2 % topical ointment RxNorm: 562042 1 Application TOP BID 12/27/2016 01/05/2017 Inactive Xarelto 20 mg tablet RxNorm: 7266969 TAKE ONE TABLET BY MOUTH DAILY 11/28/2016 06/24/2017 Inactive Xarelto 20 mg tablet RxNorm: 0272622 TAKE ONE TABLET BY MOUTH DAILY 10/18/2016 11/27/2016 Inactive prednisone 10 mg tablet RxNorm: 567104 Tablet(s) PO UD 10/16/2016 10/21/2016 Inactive 6,5,4,3,2,1 prednisone 10 mg tablet RxNorm: 564371 Tablet(s) PO UD 10/16/2016 10/15/2016 Inactive 6,5,4,3,2,1 prednisone 20 mg tablet RxNorm: 815672 2 Tablet(s) PO daily 10/09/2016 10/13/2016 Inactive metoprolol succinate ER 25 mg tablet,extended release 24 hr RxNorm: 404011 TAKE ONE TABLET BY MOUTH DAILY 09/26/2016 03/23/2017 Inactive Phenytek 300 mg capsule RxNorm: 310058 TAKE ONE CAPSULE BY MOUTH DAILY WITH TWO 200 MG CAPS TO EQUAL 700 MG 09/17/2016 03/11/2017 Inactive Phenytek 200 mg capsule RxNorm: 120030 TAKE TWO CAPSULES BY MOUTH DAILY WITH 300 MG CAPSULE TO EQUAL 700 MG TOTAL DAILY 09/03/2016 01/30/2017 Inactive Xarelto 20 mg tablet RxNorm: 3957992 TAKE ONE TABLET BY MOUTH DAILY 07/23/2016 10/17/2016 Inactive pantoprazole 40 mg tablet,delayed release RxNorm: 735396 TAKE ONE TABLET BY MOUTH TWICE A DAY AT 7 AM AND 9 PM 07/02/2016 12/28/2016 Inactive Xarelto 20 mg tablet RxNorm: 7951920 1 Tablet(s) PO daily 03/25/2016 07/22/2016 Inactive Symbicort 160 mcg-4.5 mcg/actuation HFA aerosol inhaler RxNorm: 1457987 2 Puff(s) INH BID 03/11/2016 No Stop Date Active Phenytek 200 mg capsule RxNorm: 801950 TAKE TWO CAPSULES BY MOUTH DAILY WITH 300 MG CAPSULE TO EQUAL 700 MG TOTAL DAILY 03/08/2016 09/02/2016 Inactive prednisone 20 mg tablet RxNorm: 403643 2 Tablet(s) PO daily 02/23/2016 02/27/2016 Inactive Ventolin HFA 90 mcg/actuation aerosol inhaler RxNorm: 158238 1 Puff(s) INH Q4-6H as needed 02/23/2016 01/12/2017 Inactive Augmentin 875 mg-125 mg tablet RxNorm: 533794 1 Tablet(s) PO BID 02/23/2016 02/25/2016 Inactive nystatin 100,000 unit/gram topical powder RxNorm: 900910 1 Gram(s) TOP TID 01/16/2016 01/25/2016 Inactive Phenergan-Codeine 6.25 mg-10 mg/5 mL syrup RxNorm: 775578 5-10 Milliliter(s) PO Q6 as needed cough 12/01/2015 12/26/2016 Inactive Zithromax 250 mg tablet RxNorm: 127300 1 Tablet(s) PO daily 11/23/2015 11/26/2015 Inactive Zithromax 250 mg tablet RxNorm: 515011 1 Tablet(s) PO daily 11/23/2015 11/22/2015 Inactive Zithromax Z-Kevin 250 mg tablet RxNorm: 837348 1 Tablet(s) PO UD 11/20/2015 11/24/2015 Inactive zpack Kenalog 40 mg/mL suspension for injection RxNorm: 6067498 1 Milliliter(s) Inj 11/20/2015 11/20/2015 Inactive Coumadin 4 mg tablet RxNorm: 006378 TAKE TWO TABLETS BY MOUTH EVERY EVENING FOR 3 DAYS, THEN TAKE TAKE ONE TABLET BY MOUTH EVERY EVENING THEREAFTER 11/20/2015 03/10/2016 Inactive hydrochlorothiazide 25 mg tablet RxNorm: 002312 TAKE ONE TABLET BY MOUTH DAILY 10/11/2015 03/10/2016 Inactive triamcinolone acetonide 0.025 % topical ointment RxNorm: 1199215 1 Application TOP BID 09/01/2015 No Stop Date Active nystatin 100,000 unit/gram topical cream RxNorm: 443253 1 Gram(s) TOP BID 09/01/2015 09/08/2016 Inactive Phenytek 300 mg capsule RxNorm: 699844 1 Capsule(s) PO daily take with two 200mg tablets to equal 700mg 09/01/2015 03/28/2016 Inactive nystatin 100,000 unit/gram topical powder RxNorm: 883199 1 Application TOP 09/01/2015 09/01/2015 Inactive Anucort-HC 25 mg suppository RxNorm: 1830675 1 Suppository RTL BID x 1 week then as needed 08/09/2015 No Stop Date Active Phenytek 300 mg capsule RxNorm: 580220 1 Capsule(s) PO daily take with two 200mg tablets to equal 700mg 08/02/2015 08/31/2015 Inactive Phenytek 200 mg capsule RxNorm: 937033 Capsule(s) TAKE TWO CAPSULES BY MOUTH DAILY. TAKE WITH 300MG CAPSULE TO EQUAL 700MG TOTAL DAILY. 08/02/2015 02/27/2016 Inactive lorazepam 1 mg tablet RxNorm: 372652 1 Tablet(s) PO QID as needed seizure activity 06/26/2015 07/25/2015 Inactive Phenytek 200 mg capsule RxNorm: 558390 TAKE TWO CAPSULES BY MOUTH DAILY. TAKE WITH 300MG CAPSULE TO EQUAL 700MG TOTAL DAILY. 05/25/2015 07/23/2015 Inactive Phenytek 200 mg capsule RxNorm: 397606 TAKE TWO CAPSULES BY MOUTH DAILY. TAKE WITH 300MG CAPSULE TO EQUAL 700MG TOTAL DAILY. 05/03/2015 05/24/2015 Inactive hydrochlorothiazide 25 mg tablet RxNorm: 668852 TAKE ONE TABLET BY MOUTH DAILY 03/27/2015 09/22/2015 Inactive hydrochlorothiazide 25 mg tablet RxNorm: 260947 TAKE ONE TABLET BY MOUTH DAILY 03/27/2015 09/22/2015 Inactive Phenytek 300 mg capsule RxNorm: 184261 1 Capsule(s) PO daily take with 2 200mg tablets to equal 700mg 01/04/2015 08/01/2015 Inactive Coumadin 1 mg tablet RxNorm: 004179 TAKE 1 TABLET BY MOUTH DOCTOR DIRECTED 12/19/2014 03/18/2015 Inactive Coumadin 4 mg tablet RxNorm: 458366 1 Tablet(s) PO QPM when starting, pt to take 4mg two pills nightly x 3 nights then take one pill daily) 12/05/2014 06/25/2015 Inactive Phenytek 200 mg capsule RxNorm: 001859 TAKE TWO CAPSULES BY MOUTH DAILY. TAKE WITH 300MG CAPSULE TO EQUAL 700MG TOTAL DAILY. 11/08/2014 05/02/2015 Inactive metronidazole 500 mg tablet RxNorm: 602336 1 Tablet(s) PO TID 11/01/2014 11/10/2014 Inactive hydrochlorothiazide 25 mg tablet RxNorm: 198736 1 Tablet(s) PO daily 2014 03/26/2015 Inactive Coumadin 1 mg tablet RxNorm: 587832 TAKE 1 TABLET BY MOUTH DOCTOR DIRECTED 08/19/2014 10/31/2014 Inactive Coumadin 1 mg tablet RxNorm: 620938 1 Tablet(s) PO as doctor directed 07/21/2014 08/18/2014 Inactive Coumadin 1 mg tablet RxNorm: 539125 1 Tablet(s) PO as doctor directed 07/21/2014 07/20/2014 Inactive hydrochlorothiazide 12.5 mg tablet RxNorm: 476958 1 Tablet(s) PO daily 06/15/2014 08/28/2014 Inactive Coumadin 5 mg tablet RxNorm: 237930 1 Tablet(s) PO QPM 05/12/2014 10/31/2014 Inactive check lab in 2 weeks Bactrim DS 800 mg-160 mg tablet RxNorm: 028278 1 Tablet(s) PO BID 05/10/2014 05/09/2014 Inactive start after UA given to lab Bactrim DS 800 mg-160 mg tablet RxNorm: 917188 1 Tablet(s) PO BID 05/10/2014 05/16/2014 Inactive start after UA given to lab today Keflex 500 mg capsule RxNorm: 874245 1 Capsule(s) PO TID 04/26/2014 05/05/2014 Inactive Phenytek 300 mg capsule RxNorm: 571405 1 Capsule(s) PO daily 03/29/2014 03/28/2014 Inactive Phenytek 300 mg capsule RxNorm: 327952 1 Capsule(s) PO daily take with 2 200mg tablets to equal 700mg 03/29/2014 10/24/2014 Inactive Phenytek 200 mg capsule RxNorm: 949576 2 Capsule(s) PO daily take with a 300mg capsule to equal 700mg daily 03/29/2014 10/24/2014 Inactive Coumadin 4 mg tablet RxNorm: 687745 1 Tablet(s) PO QPM when starting, pt to take 4mg two pills nightly x 3 nights then take one pill daily) 03/29/2014 05/11/2014 Inactive hydrochlorothiazide 12.5 mg tablet RxNorm: 288124 1 Tablet(s) PO daily 03/29/2014 06/14/2014 Inactive Aspirin Low Dose 81 mg tablet,delayed release RxNorm: 478638 1 Tablet(s) PO daily No Start Date Active Phenergan-Codeine 6.25 mg-10 mg/5 mL syrup RxNorm: 098092 5-10 Milliliter(s) PO Q6 as needed cough No Start Date 11/30/2015 Inactive pantoprazole 40 mg tablet,delayed release RxNorm: 019857 1 Tablet(s) PO daily No Start Date 07/01/2016 Inactive Xarelto 20 mg tablet RxNorm: 4749654 Tablet(s) PO No Start Date 03/24/2016 Inactive 15mg BID x 21 days then 20mg daily lorazepam 0.5 mg tablet RxNorm: 299702 1 Tablet(s) PO as doctor directed for seizures No Start Date 06/25/2015 Inactive Symbicort 160 mcg-4.5 mcg/actuation HFA aerosol inhaler RxNorm: 2323490 inhalation No Start Date 03/10/2016 Inactive Phenytek oral RxNorm: 578012 oral No Start Date 03/28/2014 Inactive metoprolol succinate ER 25 mg tablet,extended release 24 hr RxNorm: 296264 1 Tablet(s) PO daily No Start Date 09/25/2016 Inactive aspirin 325 mg tablet,delayed release RxNorm: 139573 1 Tablet(s) PO QHS No Start Date 03/04/2016 Inactive Medication Administered Medication Codes Instructions Start Date Status Kenalog 40 mg/mL suspension for injection RxNorm: 7135826 1.5Milliliter 11/11/2017 No longer Active Kenalog 40 mg/mL suspension for injection RxNorm: 5839698 1Milliliter 11/20/2015 No longer Active Immunizations Vaccine [...] unspecified ICD-10: J06.9 ICD-9: 465.9 11/20/2015 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 ICD-10: Z79.899 ICD-9: V58.69 [...] Item Item Code Result Date Comp Metabolic Wxx291 NA 141 mEq/L 09/09/2016 Comp Metabolic Joc062 K 3.8 mEq/L 09/09/2016 Comp Metabolic Byw111 CL 108 mEq/L 09/09/2016 Comp Metabolic Hgk128 CO2 24.0 mEq/L 09/09/2016 Comp Metabolic Jhy274 ANION GAP 13 09/09/2016 Comp Metabolic Vtm679 GLUCOSE 134 mg/dL 09/09/2016 Comp Metabolic Mpv554 Creat 0.8 mg/dL 09/09/2016 Comp Metabolic Yro052 eGFR 113 ml/min/1.73m2 09/09/2016 Comp Metabolic Pur531 BUN 16 mg/dL 09/09/2016 Comp Metabolic Uof024 B/C Ratio 21.1 Ratio 09/09/2016 Comp Metabolic Szj509 CALCIUM 8.8 mg/dL 09/09/2016 Comp Metabolic Eof306 ALK PHOS 111 U/L 09/09/2016 Comp Metabolic Zut242 AST(SGOT) 16 U/L 09/09/2016 Comp Metabolic Ccs199 ALT(SGPT) 16 U/L 09/09/2016 Comp Metabolic Nof127 BILI T 0.4 mg/dL 09/09/2016 Comp Metabolic Bxm105 ALBUMIN 3.8 g/dL 09/09/2016 Comp Metabolic Imj359 TPRO 7.0 g/dL 09/09/2016 Comp Metabolic Usx354 GLOB 3.2 g/dL 09/09/2016 Comp Metabolic Mtk120 A/G Ratio 1.2 Ratio 09/09/2016 Comp Metabolic Pck887 Osmo 284 mOsmo 09/09/2016 Dilantin Ord7 DILANTIN 12.5 UG/ML 09/09/2016 Tsh Ord6 hTSH II 1.64 uIU/mL 09/09/2016 Cbc With Differential Ord2 WBC 6.45 K/ul 09/09/2016 Cbc With Differential Ord2 RBC 4.32 M/ul 09/09/2016 Cbc With Differential Ord2 HGB 14.1 g/dl 09/09/2016 Cbc With Differential Ord2 HCT 41.7 % 09/09/2016 Cbc With Differential Ord2 Neut% 59.4 % 09/09/2016 Cbc With Differential Ord2 Lymph% 28.4 % 09/09/2016 Cbc With Differential Ord2 MCV 96.5 fl 09/09/2016 Cbc With Differential Ord2 MCH 32.6 pg 09/09/2016 Cbc With Differential Ord2 [place]% 10.2 % 09/09/2016 Cbc With Differential Ord2 [...] 1.83 K/ul 09/09/2016 Cbc With Differential Ord2 [place] ABS# 0.7 K/ul 09/09/2016 Cbc With Differential Ord2 Eos ABS# 0.1 K/ul 09/09/2016 Cbc With Differential Ord2 Baso ABS# 0.0 K/ul 09/09/2016 Dilantin Ord7 DILANTIN 17.3 UG/ML 12/26/2015 Comp Metabolic Nti479 NA 137 mEq/L 12/26/2015 Comp Metabolic Boy880 K 4.3 mEq/L 12/26/2015 Comp Metabolic Pzy460 CL 101 mEq/L 12/26/2015 Comp Metabolic Xdv611 CO2 27.0 mEq/L 12/26/2015 Comp Metabolic Xja232 ANION GAP 13 12/26/2015 Comp Metabolic Fot296 GLUCOSE 128 mg/dL 12/26/2015 Comp Metabolic Wci158 Creat 0.8 mg/dL 12/26/2015 Comp Metabolic Iia367 eGFR 104 ml/min/1.73m2 12/26/2015 Comp Metabolic Jpu798 BUN 16 mg/dL 12/26/2015 Comp Metabolic Eob737 B/C Ratio 19.5 Ratio 12/26/2015 Comp Metabolic Ywj213 CALCIUM 9.2 mg/dL 12/26/2015 Comp Metabolic Njb353 ALK PHOS 107 U/L 12/26/2015 Comp Metabolic Ybk352 AST(SGOT) 15 U/L 12/26/2015 Comp Metabolic Quj089 ALT(SGPT) 15 U/L 12/26/2015 Comp Metabolic Xnl175 BILI T 0.4 mg/dL 12/26/2015 Comp Metabolic Oaa397 ALBUMIN 4.0 g/dL 12/26/2015 Comp Metabolic Wyc672 TPRO 7.6 g/dL 12/26/2015 Comp Metabolic Pbq180 GLOB 3.6 g/dL 12/26/2015 Comp Metabolic Aoy075 A/G Ratio 1.1 Ratio 12/26/2015 Comp Metabolic Qys339 Osmo 277 mOsmo 12/26/2015 Tsh Ord6 hTSH II 2.81 uIU/mL 12/26/2015 Cbc With Differential Ord2 WBC 7.66 K/ul 12/26/2015 Cbc With Differential Ord2 RBC 4.84 M/ul 12/26/2015 Cbc With Differential Ord2 HGB 16.6 g/dl 12/26/2015 Cbc With Differential Ord2 Neut% 67.2 % 12/26/2015 Cbc With Differential Ord2 HCT 48.1 % 12/26/2015 Cbc With Differential Ord2 MCV 99.4 fl 12/26/2015 Cbc With Differential Ord2 Lymph% 22.3 % 12/26/2015 Cbc With Differential Ord2 [place]% 8.7 % 12/26/2015 Cbc With Differential Ord2 [...] 1.71 K/ul 12/26/2015 Cbc With Differential Ord2 [place] ABS# 0.7 K/ul 12/26/2015 Cbc With Differential Ord2 Eos ABS# 0.1 K/ul 12/26/2015 Cbc With Differential Ord2 Baso ABS# 0.0 K/ul 12/26/2015 Dilantin Ord7 DILANTIN 16.5 UG/ML 09/15/2015 [...] 1995 Ears/Nose/Throat oral cavity/pharynx/larynx Overall: hypopharynx benign 10/27/2014 [...] J3301 11/11/2017 OCCULT BLOOD FECES CPT- 4: 18533 10/28/2017 TRIAMCINOLONE ACET INJ NOS CPT-4: J3301 11/20/2015 Vital Signs Date Vital 11/11/2017 Blood Pressure 1: 144/82 Code: 8480-6 BMI: 47.1 Code: 48802-8 Heart Rate 1: 73 bpm Height: 5'11" SpO2: 94% Temperature: 36.9 (C) / 98.5 (F) Weight: 338 lbs 10/17/2017 Blood Pressure 1: 136/78 Code: 8480-6 BMI: 47.1 Code: 88772-0 Heart Rate 1: 82 bpm Height: 5'11" SpO2: 96% Weight: 338 lbs 06/06/2017 Blood Pressure 1: 138/76 Code: 8480-6 BMI: 47.4 Code: 84378-7 Heart Rate 1: 76 bpm Height: 5'11" SpO2: 96% Weight: 340 lbs 04/11/2017 Blood Pressure 1: 142/80 Code: 8480-6 Heart Rate 1: 79 bpm Height: 5'11" SpO2: 96% 01/27/2017 Blood Pressure 1: 146/86 Code: 8480-6 BMI: 47.1 Code: 12933-2 Heart Rate 1: 97 bpm Height: 5'11" SpO2: 95% Weight: 338 lbs 12/27/2016 Blood Pressure 1: 154/74 Code: 8480-6 BMI: 48.5 Code: 69030-4 Heart Rate 1: 82 bpm Height: 5'11" SpO2: 96% Weight: 348 lbs 10/09/2016 Blood Pressure 1: 160/82 Code: 8480-6 BMI: 47.4 Code: 76727-4 Heart Rate 1: 77 bpm Height: 5'11" SpO2: 96% Weight: 340 lbs 09/09/2016 Blood Pressure 1: 140/80 Code: 8480-6 Heart Rate 1: 88 bpm Height: 5'11" SpO2: 96% Weight: 05/31/2016 Blood Pressure 1: 126/78 Code: 8480-6 BMI: 46.3 Code: 56309-8 Heart Rate 1: 75 bpm Height: 5'11" SpO2: 96% Weight: 332 lbs 03/29/2016 Blood Pressure 1: 146/78 Code: 8480-6 Heart Rate 1: 78 bpm Height: 5'11" SpO2: 97% Weight: 03/11/2016 Blood Pressure 1: 136/86 Code: 8480-6 BMI: 44.4 Code: 59080-5 Heart Rate 1: 77 bpm Height: 5'11" SpO2: 96% Weight: 318 lbs 02/23/2016 Blood Pressure 1: 146/94 Code: 8480-6 BMI: 44.4 Code: 75922-7 Heart Rate 1: 90 bpm Height: 5'11" SpO2: 93% Weight: 318 lbs 01/16/2016 Blood Pressure 1: 140/86 Code: 8480-6 BMI: 44.6 Code: 85063-9 Heart Rate 1: 75 bpm Height: 5'11" SpO2: 96% Weight: 320 lbs 12/26/2015 Blood Pressure 1: 130/78 Code: 8480-6 BMI: 43.7 Code: 78847-8 Heart Rate 1: 96 bpm Height: 5'11" SpO2: 98% Weight: 313 lbs 11/20/2015 Blood Pressure 1: 137/92 Code: 8480-6 Heart Rate 1: 84 bpm Height: SpO2: 98% Temperature: 36.7 (C) / 98.0 (F) Weight: 09/01/2015 Blood Pressure 1: 148/88 Code: 8480-6 BMI: 43.8 Code: 35904-4 Heart Rate 1: 73 bpm Height: 5'11" SpO2: 97% Weight: 314 lbs 08/09/2015 Blood Pressure 1: 138/78 Code: 8480-6 BMI: 45.0 Code: 41282-5 Heart Rate 1: 75 bpm Height: 5'11" SpO2: 98% Weight: 323 lbs 06/26/2015 Blood Pressure 1: 134/80 Code: 8480-6 BMI: 46.3 Code: 15743-1 Heart Rate 1: 78 bpm Height: 5'11" SpO2: 96% Weight: 332 lbs 11/18/2014 Blood Pressure 1: 130/78 Code: 8480-6 BMI: 44.4 Code: 38738-0 Heart Rate 1: 66 bpm Height: 5'11" SpO2: 98% Weight: 318 lbs 11/01/2014 Blood Pressure 1: 130/78 Code: 8480-6 BMI: 44.5 Code: 40818-0 Heart Rate 1: 78 bpm Height: 5'11" SpO2: 97% Weight: 319 lbs 10/27/2014 Blood Pressure 1: 152/88 Code: 8480-6 BMI: 43.9 Code: 19078-7 Heart Rate 1: 91 bpm Height: 5'11" SpO2: 98% Weight: 315 lbs 2014 Blood Pressure 1: 140/82 Code: 8480-6 BMI: 44.9 Code: 89525-3 Heart Rate 1: 78 bpm Height: 5'11" Weight: 322 lbs 05/05/2014 Blood Pressure 1: 142/88 Code: 8480-6 BMI: 40.9 Code: 51975-0 Heart Rate 1: 64 bpm Height: 5'11" Temperature: 37.3 (C) / 99.1 (F) Weight: 293 lbs 04/26/2014 Blood Pressure 1: 142/82 Code: 8480-6 BMI: 40.2 Code: 26403-2 Heart Rate 1: 64 bpm Height: 5'11" Weight: 288 lbs 03/29/2014 Blood Pressure 1: 138/84 Code: 8480-6 BMI: 39.3 Code: 91064-6 Heart Rate 1: 84 bpm Height: 5'11" [...] Codes Date EST. PATIENT, LEVEL III Diagnosis: Other acute sinusitis[ICD10: J01.80] Diagnosis: Other allergic rhinitis[ICD10: J30.89] Diagnosis: Cough[ICD10: R05] Elsie Salamanca MD, [facility] CPT-4: 48324 11/11/2017 02710 EST. PATIENT, LEVEL IV Diagnosis: Essential (primary) hypertension[ICD10: I10] Diagnosis: Epilepsy, unspecified, not intractable, without status epilepticus[ICD10: G40.909] Elsie Salamanca MD, [facility] CPT-4: 37739 10/17/2017 75762 EST. PATIENT, LEVEL IV Diagnosis: Essential (primary) hypertension[ICD10: I10] Diagnosis: Epilepsy, unspecified, not intractable, without status epilepticus[ICD10: G40.909] Elsie Salamanca MD, [facility] CPT-4: 83600 06/06/2017 41609 EST. PATIENT, LEVEL IV Diagnosis: Essential (primary) hypertension[ICD10: I10] Diagnosis: Epilepsy, unspecified, not intractable, without status epilepticus[ICD10: G40.909] Elsie Salamanca MD, [facility] CPT-4: 41686 04/11/2017 ([id number]) 05476 EST. PATIENT, LEVEL III Diagnosis: Essential (primary) hypertension[ICD10: I10] Diagnosis: Epilepsy, unspecified, not intractable, without status epilepticus[ICD10: G40.909] Leelee Salamanca MD, [facility] CPT-4: 57624 01/27/2017 ([id number]) 11331 EST. PATIENT, LEVEL IV Diagnosis: Essential (primary) hypertension[ICD10: I10] Diagnosis: Epilepsy, unspecified, not intractable, without status epilepticus[ICD10: G40.909] Diagnosis: Pain in right wrist[ICD10: M25.531] Leelee Salamanca MD, [facility] CPT-4: 81907 12/27/2016 63391 EST. PATIENT, LEVEL III Diagnosis: Rash and other nonspecific skin eruption[ICD10: R21] Elsie Salamanca MD, [facility] CPT-4: 27864 10/09/2016 ([id number]) 59270 EST. PATIENT, LEVEL III Diagnosis: Carpal tunnel syndrome, right upper limb[ICD10: G56.01] Diagnosis: Olecranon bursitis, right elbow[ICD10: M70.21] Betty Salamanca MD, [facility] CPT-4: 24284 09/09/2016 ([id number]) 64294 EST. PATIENT, LEVEL III Diagnosis: Essential (primary) hypertension[ICD10: I10] Diagnosis: Low back pain[ICD10: M54.5] Leelee Salamanca MD, [facility] CPT-4: 36649 05/31/2016 ([id number]) 48810 EST. PATIENT, LEVEL III Diagnosis: Essential (primary) hypertension[ICD10: I10] Diagnosis: Slow transit constipation[ICD10: K59.01] Leelee Salamanca MD, [facility] CPT-4: 24480 03/29/2016 ([id number]) 01531 EST. 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 PATIENT, LEVEL III Diagnosis: Acute laryngopharyngitis[ICD10: J06.0] Diagnosis: Other allergic rhinitis[ICD10: J30.89] Diagnosis: Cough[ICD10: R05] Diagnosis: Wheezing[ICD10: R06.2] Elsie Salamanca MD, [facility] CPT-4: 42852 02/23/2016 ([id number]) 35078 EST. PATIENT, LEVEL III Diagnosis: Epilepsy, unspecified, not intractable, without status epilepticus[ICD10: G40.909] Betty Salamanca MD, [facility] CPT-4: 66268 01/16/2016 ([id number]) 32697 EST. PATIENT, LEVEL IV Diagnosis: Essential (primary) hypertension[ICD10: I10] Diagnosis: Morbid (severe) obesity due to excess calories[ICD10: E66.01] Diagnosis: Epilepsy, unspecified, not intractable, without status epilepticus[ICD10: G40.909] Betty Salamanca MD, [facility] CPT-4: 22490 12/26/2015 ([id number]) 37797 EST. PATIENT, LEVEL III Diagnosis: Allergic rhinitis due to pollen[ICD10: J30.1] Diagnosis: Acute upper respiratory infection, unspecified[ICD10: J06.9] Leelee Salamanca MD, [facility] CPT-4: 88931 11/20/2015 32116 EST. PATIENT, LEVEL IV Diagnosis: Other correction (current) drug therapy[ICD10: Z79.899] Diagnosis: Candidiasis of skin and nail[ICD10: B37.2] Elsie Salamanca MD, [facility] CPT-4: 45649 09/01/2015 ([id number]) 86670 EST. PATIENT, LEVEL IV Diagnosis: Epilepsy, unspecified, not intractable, without status epilepticus[ICD10: G40.909] Diagnosis: Essential (primary) hypertension[ICD10: I10] Diagnosis: First degree hemorrhoids[ICD10: K64.0] Diagnosis: Low back pain[ICD10: M54.5] Betty Salamanca MD, [facility] CPT-4: 30877 08/09/2015 ([id number]) 55830 EST. PATIENT, LEVEL IV Diagnosis: Essential (primary) hypertension[ICD10: I10] Diagnosis: Morbid (severe) obesity due to excess calories[ICD10: E66.01] Diagnosis: Epilepsy, unspecified, not intractable, without status epilepticus[ICD10: G40.909] Betty Salamanca MD, [facility] CPT-4: 06824 06/26/2015 ([id number] [id number] EST. PATIENT, LEVEL IV Diagnosis: ESSENTIAL HYPERTENSION[ICD9: 401.9] Diagnosis: Small bowel obstruction[ICD9: 560.9] Diagnosis: Hospital discharge follow-up[ICD9: V67.59] Betty Salamanca MD [facility] CPT-4: 65863 11/18/2014 ([id number]) 83063 EST. PATIENT, LEVEL III Diagnosis: Diarrhea[ICD9: 787.91] Diagnosis: Abdominal pain[ICD9: 789.00] Betty Salamanca MD [facility] CPT-4: 60841 11/01/2014 ([id number]) 18743 EST. PATIENT, LEVEL III Diagnosis: ESSENTIAL HYPERTENSION[ICD9: 401.9] Diagnosis: Diarrhea[ICD9: 787.91] Leelee Salamanca MD, [facility] CPT-4: 98440 10/27/2014 ([id number]) 10011 EST. PATIENT, LEVEL IV Diagnosis: Factor V Leiden mutation[ICD9: 289.81] Diagnosis: Hx of deep venous thrombosis[ICD9: V12.51] Diagnosis: ESSENTIAL HYPERTENSION[ICD9: 401.9] Diagnosis: OBESITY[ICD9: 278.00] Betty Salamanca MD [facility] CPT-4: 87540 2014 ([id number]) 86757 EST. PATIENT, LEVEL III Diagnosis: Hematuria[ICD9: 599.70] Diagnosis: LONG-TERM USE ANTICOAGUL[ICD9: V58.61] Leelee Salamanca MD [facility] CPT-4: 40764 05/05/2014 ([id number]) 70407 EST. PATIENT, LEVEL IV Diagnosis: ESSENTIAL HYPERTENSION[ICD9: 401.9] Diagnosis: LONG-TERM USE ANTICOAGUL[ICD9: V58.61] Diagnosis: MORBID OBESITY[ICD9: 278.01] Diagnosis: Abscess and cellulitis[ICD9: 682.9] Betty Salamanca MD, [facility] CPT- 4: 06207 04/26/2014 ([id number]) OFFICE VISIT, NEW - LEVEL 4 Diagnosis: ESSENTIAL HYPERTENSION[ICD9: 401.9] Diagnosis: LONG-TERM USE ANTICOAGUL[ICD9: V58.61] [facility] CPT-4: 74536 03/29/2014 Plan of Care Planned Activity Notes [...] allergy spray. 11/11/2017 Appointment: Elsie Mosquera WPtel: [address] [place], [place] [id number] (15 min) Moderate 11/11/2017 Patient Education: Patient [...] for weight check. 10/17/2017 Appointment: Elsie Mosqueratel: [facility] (15 min) Moderate 10/17/2017 Patient Education: Patient Medication Summary Completed 10/17/2017 Appointment: Elsie Mosqueratel: [address] [place], [place] [phone] (15 min) Moderate 10/07/2017 Care Plan: BMI Above normal followup SELF-MGMT EDUC & TRAIN 1 PT Pending 06/09/2017 Visit Plan: Hypertension - improved - continue with current medications, continue with no added salt diet. Pt has been encouraged to exercise daily. The pt has been advised to call the office if there are any [place] concerns about change in blood pressure readings at home. Epilepsy- controlled, no changes, continue to monitor Obesity - chronic issue with this patient. The pt has been counseled about diet changes, calorie restriction, and need to exercise. Pt will RTC in one month for weight check. 06/06/2017 Appointment: Elsie Mosquera WPtel: [facility] (30 min) Complex 06/06/2017 Patient Education: [...] the office if there are any [place] concerns about change in blood pressure readings at home. Epilepsy- controlled, no changes, continue to monitor Obesity - chronic issue with this patient. The pt has been counseled about diet changes, calorie restriction, and need to exercise. Pt will RTC in one month for weight check. 04/11/2017 Appointment: Elsie Mosquera WPtel: [facility] (30 min) Complex 04/11/2017 Patient Education: Patient Medication Summary Completed 04/11/2017 Patient Education: Obesity Completed 04/11/2017 Appointment: Elsie Mosquera WPtel: [facility] (30 min) Complex 04/01/2017 Visit Plan: Hypertension - improved - continue with current medications, continue with no added salt diet. Pt has been encouraged to exercise daily. The pt has been advised to call the office if there are any [place] concerns about change in blood pressure readings at home. Obesity-lost 10#- continue diet/exercise Epilepsy-check dilantin level 01/27/2017 Appointment: Leelee Weinstein WPtel: [phone] [place] (30 min) Complex 01/27/2017 Patient [...] [place] 12/27/2016 Appointment: Leelee Weinstein WPtel: [phone] [place] (30 min) Complex 12/27/2016 Patient Education: Patient Medication Summary Completed 12/27/2016 Care Plan: Referral Order SNOMED-CT : [id number] Pending 12/27/2016 Visit Plan: Rash - pt [...] Obesity Completed 10/09/2016 Appointment: Leelee Weinstein WPtel: [address] [place], [place] [phone] (30 min) Complex 10/04/2016 Visit Plan: on the rash on your foot, use benadryl cream mixed with cortisone cream - use a jerica size portion of both Carpal tunnel -wear a carpal tunnel brace at night and a tennis elbow brace during the day use aspercreme on your elbow and wrist at least twice a day 09/09/2016 Appointment: Betty Salamanca WPtel: [address] [place], [place] [phone] (15 min) Moderate 09/09/2016 Patient Education: Patient [...] improve. 05/31/2016 Appointment: Leelee Weinstein WPtel: [phone] [place] (30 min) Complex 05/31/2016 Patient Education: Patient Medication Summary Completed 05/31/2016 Patient Education: Obesity Completed 05/31/2016 Patient Education: Hypertension Completed 05/31/2016 Appointment: Leelee Weinstein WPtel: [phone] [phone] (30 min) Complex 04/01/2016 Visit Plan: Hypertension [...] of plan. 03/29/2016 Appointment: Leelee Weinstein WPtel: [phone] [phone] (15 min) Moderate 03/29/2016 Patient Education: Patient Medication Summary Completed 03/29/2016 Patient Education: Hypertension Completed 03/29/2016 Visit Plan: Bilateral PE-hospital follow up-on xarelto-symptoms improving Nppwt-cpejqkpiuj-kqhfjxpn-continue symbicort twice daily as directed Hypertension - well controlled - continue with current medications, continue with no added salt diet. Pt has been encouraged to exercise daily. The pt has been advised to call the office if there are any acute concerns about change in blood pressure readings at home. 03/11/2016 Appointment: Leelee Weinstein WPtel: [phone] [phone] (30 min) Complex 03/11/2016 Patient Education: Patient [...] spray. 02/23/2016 Appointment: Elsie Mosquera WPtel: [facility]66[facility] (15 min) Moderate 02/23/2016 Patient Education: Patient Medication Summary Completed 02/23/2016 Patient Education: Obesity Completed 02/23/2016 Visit Plan: Epilepsy - continue with phenytek wound improving 01/16/2016 Appointment: Betty Salamanca WPtel: [address] [place] [address] (15 min) Moderate 01/16/2016 Patient Education: Patient [...] current anti-epileptic 12/26/2015 Appointment: Betty Salamanca WPtel: [address] [place], [place] [address] (15 min) Moderate 12/26/2015 Patient Education: [...] not resolve 11/20/2015 Appointment: Leelee Weinstein WPtel: [phone] [phone] (15 min) Moderate 11/20/2015 Patient Education: Patient [...] pain. 09/01/2015 Appointment: Leelee Weinstein WPtel: [phone] (30 min) Complex 09/01/2015 Patient Education: Patient Medication Summary Completed 09/01/2015 Referral: Ady Oswald WPtel:[phone] Referral Completed 08/30/2015 Visit Plan: Hypertension - [...] 08/09/2015 Care Plan: Referral Order SNOMED-CT : [id number] Pending 07/12/2015 Visit Plan: Hypertension - well [...] on flagyl. 11/01/2014 Appointment: Betty Salamanca WPtel: [address] [place], [place] [address] [place] (15 min) Moderate 11/01/2014 Patient Education: Patient [...] closely - 2014 Appointment: Betty Salamanca WPtel: [address] [place], [place] [id number] Follow up 2014 Patient Education: Patient Medication Summary Completed 2014 Patient Education: Hypertension Completed 2014 Care Plan: Referral Order SNOMED-CT : [id number] Ordered 2014 Visit Plan: Hematuria-per patient report-no [...] weight check. 04/26/2014 Appointment: Betty Salamanca WPtel: [address] [place], [place] [phone] Follow up 04/26/2014 Patient Education: Patient Medication [...] and 3.5. 03/29/2014 Appointment: Betty Salamanca WPtel: [address] [place], [place] [phone] [place] New Patient 03/29/2014 Patient Education: Patient Medication Summary Completed 03/29/2014 Patient Education: Hypertension Completed 03/29/2014 Referral: Madhu Hall MD WPtel: Via [address] [place] Referral Completed Referral: Edilson Ordaz [facility] [place] Referral Appointment Requested Referral: Ady Oswald WPtel:[phone] Referral Appointment Requested Instructions Comment . Hypertension [...] verbalized understanding of plan. . Hypertension - improved - continue with [...] is worsening or does not improve. . Sinusitis - Pt has acute infection [...] spray in the nasal steroid allergy spray. Check UA with c&s if indicated Check [...] between 2.0 and 3.5. . Hypertension - continue with current medications, [...] . Bilateral PE-hospital follow up-on xarelto-symptoms improving Brntg-rxwopmjuox-gycmzxwi-continue symbicort twice daily as directed Hypertension - [...] up on this patient's medical condition. . Sinusitis - Pt has acute infection [...] intake - monitor weight closely - . Candidal rash in left axilla - The patient was instructed to use the ointment as per RX. The patient is to call for any change in symptoms, worsening redness, warmth, discharge, increase in size of the lesion, increase in pain. . Hypertension - elevated today but well [...]
--- OUTSIDE RECORDS SUMMARY | 2018-09-06 06:43 | XMS REPORT | CCD ---
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 Name Role Phone PP Unavailable CCM Unavailable Summary Purpose Interface Exchange Insurance Providers Payer name Policy type / Coverage type Covered alliance party ID Effective Begin Date Effective End Date Blue Cross Blue Shield [facility] Blue Cross/Blue Shield [id number] Unknown Unknown Family history Father Diagnosis Age At Onset Coronary Artery Disease Unknown Mother Diagnosis Age At Onset Cancer Unknown Cancer Unknown Social History Social History Element Codes Description Effective Dates Number of children Unknown 0 06/26/2015 Employment Unknown 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] Problems Condition Codes Effective Dates Condition Status Epilepsy, unspecified, not intractable, without status epilepticus [...] ICD-9: 477.0 ICD-10: J30.1 11/19/2015 Active Other ocean transportation intermediary (current) drug therapy ICD-9: V58.69 ICD-10: Z79.899 [...] Fill Instructions Phenytek 300 mg capsule RxNorm: 067206 TAKE ONE CAPSULE BY MOUTH DAILY WITH TWO 200 MG CAPS TO EQUAL 700 MG 03/12/2017 09/07/2017 Active Phenytek 200 mg capsule RxNorm: 151481 TAKE TWO CAPSULES BY MOUTH DAILY WITH 300 MG CAPSULE TO EQUAL 700 MG TOTAL DAILY 02/03/2017 06/02/2017 Active pantoprazole 40 mg tablet,delayed release RxNorm: 118282 TAKE ONE TABLET BY MOUTH TWICE A DAY AT 7AM AND 9PM 01/27/2017 07/25/2017 Active Ventolin HFA 90 mcg/actuation aerosol inhaler RxNorm: 382636 INHALE ONE PUFF BY MOUTH EVERY 4 TO 6 HOURS NEEDED 01/13/2017 03/19/2017 Active mupirocin 2 % topical ointment RxNorm: 870934 1 Application TOP BID 12/27/2016 01/05/2017 Inactive Xarelto 20 mg tablet RxNorm: 5592587 TAKE ONE TABLET BY MOUTH DAILY 11/28/2016 11/22/2017 Active Xarelto 20 mg tablet RxNorm: 4886562 TAKE ONE TABLET BY MOUTH DAILY 10/18/2016 11/27/2016 Inactive prednisone 10 mg tablet RxNorm: 835576 Tablet(s) PO UD 10/16/2016 10/21/2016 Inactive 6,5,4,3,2,1 prednisone 10 mg tablet RxNorm: 910882 Tablet(s) PO UD 10/16/2016 10/15/2016 Inactive 6,5,4,3,2,1 prednisone 20 mg tablet RxNorm: 760177 2 Tablet(s) PO daily 10/09/2016 10/13/2016 Inactive metoprolol succinate ER 25 mg tablet,extended release 24 hr RxNorm: 389917 TAKE ONE TABLET BY MOUTH DAILY 09/26/2016 03/24/2017 Active Phenytek 300 mg capsule RxNorm: 268643 TAKE ONE CAPSULE BY MOUTH DAILY WITH TWO 200 MG CAPS TO EQUAL 700 MG 09/17/2016 03/11/2017 Inactive Phenytek 200 mg capsule RxNorm: 049127 TAKE TWO CAPSULES BY MOUTH DAILY WITH 300 MG CAPSULE TO EQUAL 700 MG TOTAL DAILY 09/03/2016 01/30/2017 Inactive Xarelto 20 mg tablet RxNorm: 6053385 TAKE ONE TABLET BY MOUTH DAILY 07/23/2016 10/17/2016 Inactive pantoprazole 40 mg tablet,delayed release RxNorm: 410057 TAKE ONE TABLET BY MOUTH TWICE A DAY AT 7 AM AND 9 PM 07/02/2016 12/28/2016 Inactive Xarelto 20 mg tablet RxNorm: 9528681 1 Tablet(s) PO daily 03/25/2016 07/22/2016 Inactive Symbicort 160 mcg-4.5 mcg/actuation HFA aerosol inhaler RxNorm: 2077797 2 Puff(s) INH BID 03/11/2016 No Stop Date Active Phenytek 200 mg capsule RxNorm: 374995 TAKE TWO CAPSULES BY MOUTH DAILY WITH 300 MG CAPSULE TO EQUAL 700 MG TOTAL DAILY 03/08/2016 09/02/2016 Inactive prednisone 20 mg tablet RxNorm: 143714 2 Tablet(s) PO daily 02/23/2016 02/27/2016 Inactive Ventolin HFA 90 mcg/actuation aerosol inhaler RxNorm: 628957 1 Puff(s) INH Q4-6H as needed 02/23/2016 01/12/2017 Inactive Augmentin 875 mg-125 mg tablet RxNorm: 400387 1 Tablet(s) PO BID 02/23/2016 02/25/2016 Inactive nystatin 100,000 unit/gram topical powder RxNorm: 385040 1 Gram(s) TOP TID 01/16/2016 01/25/2016 Inactive Phenergan-Codeine 6.25 mg-10 mg/5 mL syrup RxNorm: 315228 5-10 Milliliter(s) PO Q6 as needed cough 12/01/2015 12/26/2016 Inactive Zithromax 250 mg tablet RxNorm: 718099 1 Tablet(s) PO daily 11/23/2015 11/26/2015 Inactive Zithromax 250 mg tablet RxNorm: 314575 1 Tablet(s) PO daily 11/23/2015 11/22/2015 Inactive Zithromax Z-Kevin 250 mg tablet RxNorm: 749225 1 Tablet(s) PO UD 11/20/2015 11/24/2015 Inactive zpack Kenalog 40 mg/mL suspension for injection RxNorm: 9442045 1 Milliliter(s) Inj 11/20/2015 11/20/2015 Inactive Coumadin 4 mg tablet RxNorm: 255890 TAKE TWO TABLETS BY MOUTH EVERY EVENING FOR 3 DAYS, THEN TAKE TAKE ONE TABLET BY MOUTH EVERY EVENING THEREAFTER 11/20/2015 03/10/2016 Inactive hydrochlorothiazide 25 mg tablet RxNorm: 239640 TAKE ONE TABLET BY MOUTH DAILY 10/11/2015 03/10/2016 Inactive triamcinolone acetonide 0.025 % topical ointment RxNorm: 7371158 1 Application TOP BID 09/01/2015 No Stop Date Active nystatin 100,000 unit/gram topical cream RxNorm: 253798 1 Gram(s) TOP BID 09/01/2015 09/08/2016 Inactive Phenytek 300 mg capsule RxNorm: 458973 1 Capsule(s) PO daily take with two 200mg tablets to equal 700mg 09/01/2015 03/28/2016 Inactive nystatin 100,000 unit/gram topical powder RxNorm: 775668 1 Application TOP 09/01/2015 09/01/2015 Inactive Anucort-HC 25 mg suppository RxNorm: 3489198 1 Suppository RTL BID x 1 week then as needed 08/09/2015 No Stop Date Active Phenytek 300 mg capsule RxNorm: 119498 1 Capsule(s) PO daily take with two 200mg tablets to equal 700mg 08/02/2015 08/31/2015 Inactive Phenytek 200 mg capsule RxNorm: 993438 Capsule(s) TAKE TWO CAPSULES BY MOUTH DAILY. TAKE WITH 300MG CAPSULE TO EQUAL 700MG TOTAL DAILY. 08/02/2015 02/27/2016 Inactive lorazepam 1 mg tablet RxNorm: 255751 1 Tablet(s) PO QID as needed seizure activity 06/26/2015 07/25/2015 Inactive Phenytek 200 mg capsule RxNorm: 357447 TAKE TWO CAPSULES BY MOUTH DAILY. TAKE WITH 300MG CAPSULE TO EQUAL 700MG TOTAL DAILY. 05/25/2015 07/23/2015 Inactive Phenytek 200 mg capsule RxNorm: 117880 TAKE TWO CAPSULES BY MOUTH DAILY. TAKE WITH 300MG CAPSULE TO EQUAL 700MG TOTAL DAILY. 05/03/2015 05/24/2015 Inactive hydrochlorothiazide 25 mg tablet RxNorm: 596024 TAKE ONE TABLET BY MOUTH DAILY 03/27/2015 09/22/2015 Inactive hydrochlorothiazide 25 mg tablet RxNorm: 465349 TAKE ONE TABLET BY MOUTH DAILY 03/27/2015 09/22/2015 Inactive Phenytek 300 mg capsule RxNorm: 681701 1 Capsule(s) PO daily take with 2 200mg tablets to equal 700mg 01/04/2015 08/01/2015 Inactive Coumadin 1 mg tablet RxNorm: 761771 TAKE 1 TABLET BY MOUTH DOCTOR DIRECTED 12/19/2014 03/18/2015 Inactive Coumadin 4 mg tablet RxNorm: 589996 1 Tablet(s) PO QPM when starting, pt to take 4mg two pills nightly x 3 nights then take one pill daily) 12/05/2014 06/25/2015 Inactive Phenytek 200 mg capsule RxNorm: 505224 TAKE TWO CAPSULES BY MOUTH DAILY. TAKE WITH 300MG CAPSULE TO EQUAL 700MG TOTAL DAILY. 11/08/2014 05/02/2015 Inactive metronidazole 500 mg tablet RxNorm: 660677 1 Tablet(s) PO TID 11/01/2014 11/10/2014 Inactive hydrochlorothiazide 25 mg tablet RxNorm: 378989 1 Tablet(s) PO daily 2014 03/26/2015 Inactive Coumadin 1 mg tablet RxNorm: 863910 TAKE 1 TABLET BY MOUTH DOCTOR DIRECTED 08/19/2014 10/31/2014 Inactive Coumadin 1 mg tablet RxNorm: 855701 1 Tablet(s) PO as doctor directed 07/21/2014 08/18/2014 Inactive Coumadin 1 mg tablet RxNorm: 285867 1 Tablet(s) PO as doctor directed 07/21/2014 07/20/2014 Inactive hydrochlorothiazide 12.5 mg tablet RxNorm: 546673 1 Tablet(s) PO daily 06/15/2014 08/28/2014 Inactive Coumadin 5 mg tablet RxNorm: 881713 1 Tablet(s) PO QPM 05/12/2014 10/31/2014 Inactive check lab in 2 weeks Bactrim DS 800 mg-160 mg tablet RxNorm: 950910 1 Tablet(s) PO BID 05/10/2014 05/09/2014 Inactive start after UA given to lab Bactrim DS 800 mg-160 mg tablet RxNorm: 017636 1 Tablet(s) PO BID 05/10/2014 05/16/2014 Inactive start after UA given to lab today Keflex 500 mg capsule RxNorm: 374504 1 Capsule(s) PO TID 04/26/2014 05/05/2014 Inactive Phenytek 300 mg capsule RxNorm: 661110 1 Capsule(s) PO daily 03/29/2014 03/28/2014 Inactive Phenytek 300 mg capsule RxNorm: 499452 1 Capsule(s) PO daily take with 2 200mg tablets to equal 700mg 03/29/2014 10/24/2014 Inactive Phenytek 200 mg capsule RxNorm: 688346 2 Capsule(s) PO daily take with a 300mg capsule to equal 700mg daily 03/29/2014 10/24/2014 Inactive Coumadin 4 mg tablet RxNorm: 603398 1 Tablet(s) PO QPM when starting, pt to take 4mg two pills nightly x 3 nights then take one pill daily) 03/29/2014 05/11/2014 Inactive hydrochlorothiazide 12.5 mg tablet RxNorm: 812783 1 Tablet(s) PO daily 03/29/2014 06/14/2014 Inactive Aspirin Low Dose 81 mg tablet,delayed release RxNorm: 579650 1 Tablet(s) PO daily No Start Date Active Phenergan-Codeine 6.25 mg-10 mg/5 mL syrup RxNorm: 406002 5-10 Milliliter(s) PO Q6 as needed cough No Start Date 11/30/2015 Inactive pantoprazole 40 mg tablet,delayed release RxNorm: 685409 1 Tablet(s) PO daily No Start Date 07/01/2016 Inactive Xarelto 20 mg tablet RxNorm: 8141702 Tablet(s) PO No Start Date 03/24/2016 Inactive 15mg BID x 21 days then 20mg daily lorazepam 0.5 mg tablet RxNorm: 890008 1 Tablet(s) PO as doctor directed for seizures No Start Date 06/25/2015 Inactive Symbicort 160 mcg-4.5 mcg/actuation HFA aerosol inhaler RxNorm: 3903152 inhalation No Start Date 03/10/2016 Inactive Phenytek oral RxNorm: 923896 oral No Start Date 03/28/2014 Inactive metoprolol succinate ER 25 mg tablet,extended release 24 hr RxNorm: 320978 1 Tablet(s) PO daily No Start Date 09/25/2016 Inactive aspirin 325 mg tablet,delayed release RxNorm: 176284 1 Tablet(s) PO QHS No Start Date 03/04/2016 Inactive Medication Administered Medication Codes Instructions Start Date Status Kenalog 40 mg/mL suspension for injection RxNorm: 1981748 1Milliliter 11/20/2015 No longer Active Immunizations Vaccine Codes Date Status Influenza CVX: 141 04/23/2016 completed Assessments Condition Codes Effective Dates Epilepsy, unspecified, not intractable, without status epilepticus ICD-10: G40.909 ICD-9: 345.90 01/27/2017 Essential (primary) hypertension ICD-10: I10 ICD-9: 401.9 01/27/2017 Pain in right wrist ICD-10: M25.531 ICD-9: 719.43 12/27/2016 Rash and other nonspecific skin eruption ICD-10: R21 ICD-9: 782.1 10/09/2016 Carpal tunnel syndrome, right upper limb ICD-10: G56.01 ICD-9: 354.0 09/09/2016 Olecranon bursitis, right elbow ICD-10: M70.21 ICD-9: 726.33 09/09/2016 Low back pain ICD-10: M54.5 ICD-9: 724.2 05/31/2016 Slow transit constipation ICD-10: K59.01 ICD-9: 564.01 03/29/2016 Encounter for follow-up examination after completed treatment for conditions other than malignant neoplasm ICD-10: Z09 ICD-9: V67.59 03/11/2016 Cough ICD-10: R05 ICD-9: 786.2 03/11/2016 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 ICD-9: 415.13 03/11/2016 Acute laryngopharyngitis ICD-10: J06.0 ICD-9: 465.0 02/23/2016 Other allergic rhinitis ICD-10: J30.89 ICD-9: 477.8 02/23/2016 Wheezing ICD-10: R06.2 ICD-9: 786.07 02/23/2016 Morbid (severe) obesity due to excess calories ICD-10: E66.01 ICD-9: 278.01 12/26/2015 Allergic rhinitis due to pollen ICD-10: J30.1 ICD-9: 477.0 11/20/2015 Acute upper respiratory infection, unspecified ICD-10: J06.9 ICD-9: 465.9 11/20/2015 Other [place] [facility] drug therapy ICD-10: Z79.899 ICD-9: V58.69 09/08/2015 Candidiasis of skin and nail ICD-10: B37.2 ICD-9: 112.3 09/01/2015 First degree hemorrhoids ICD-10: K64.0 ICD-9: 455.6 08/09/2015 Encounter for therapeutic drug level monitoring ICD-10: Z51.81 ICD-9: V58.61 02/03/2015 Obesity, unspecified ICD-10: E66.9 ICD-9: 278.00 01/02/2015 Encounter for screening for malignant neoplasm of prostate ICD- 10: Z12.5 ICD-9: V76.44 01/02/2015 Small bowel obstruction ICD-9: 560.9 11/18/2014 Hospital discharge follow-up ICD-9: V67.59 11/18/2014 ESSENTIAL HYPERTENSION ICD-9: 401.9 11/18/2014 Abdominal pain ICD-9: 789.00 11/01/2014 Diarrhea ICD-9: 787.91 11/01/2014 OBESITY ICD-9: 278.00 2014 Factor V Leiden mutation ICD-9: 289.81 2014 Hx of deep venous thrombosis ICD-9: V12.51 2014 Hematuria ICD-9: 599.70 05/05/2014 LONG-TERM USE ANTICOAGUL ICD-9: V58.61 05/05/2014 Abscess and cellulitis ICD-9: 682.9 04/26/2014 MORBID OBESITY ICD-9: 278.01 04/26/2014 Reason For Visit Reason For Visit Effective Dates Notes blood pressure followup 01/27/2017 hand pain 12/27/2016 [...] Item Item Code Result Date Comp Metabolic Qyu884 NA 141 mEq/L 09/09/2016 Comp Metabolic Hhm334 K 3.8 mEq/L 09/09/2016 Comp Metabolic Wxp664 CL 108 mEq/L 09/09/2016 Comp Metabolic Sdo624 CO2 24.0 mEq/L 09/09/2016 Comp Metabolic Yqw958 ANION GAP 13 09/09/2016 Comp Metabolic Tqp072 GLUCOSE 134 mg/dL 09/09/2016 Comp Metabolic Ngw474 Creat 0.8 mg/dL 09/09/2016 Comp Metabolic Jay406 eGFR 113 ml/min/1.73m2 09/09/2016 Comp Metabolic Lfd527 BUN 16 mg/dL 09/09/2016 Comp Metabolic Rax943 B/C Ratio 21.1 Ratio 09/09/2016 Comp Metabolic Sso157 CALCIUM 8.8 mg/dL 09/09/2016 Comp Metabolic Jai824 ALK PHOS 111 U/L 09/09/2016 Comp Metabolic Zyp288 AST(SGOT) 16 U/L 09/09/2016 Comp Metabolic Omr908 ALT(SGPT) 16 U/L 09/09/2016 Comp Metabolic Shl722 BILI T 0.4 mg/dL 09/09/2016 Comp Metabolic Gkm623 ALBUMIN 3.8 g/dL 09/09/2016 Comp Metabolic Kjv134 TPRO 7.0 g/dL 09/09/2016 Comp Metabolic Bos120 GLOB 3.2 g/dL 09/09/2016 Comp Metabolic Jlu339 A/G Ratio 1.2 Ratio 09/09/2016 Comp Metabolic Hls413 Osmo 284 mOsmo 09/09/2016 Dilantin Ord7 DILANTIN 12.5 UG/ML 09/09/2016 Cbc With Differential Ord2 WBC 6.45 K/ul 09/09/2016 Cbc With Differential Ord2 RBC 4.32 M/ul 09/09/2016 Cbc With Differential Ord2 HGB 14.1 g/dl 09/09/2016 Cbc With Differential Ord2 HCT 41.7 % 09/09/2016 Cbc With Differential Ord2 Neut% 59.4 % 09/09/2016 Cbc With Differential Ord2 Lymph% 28.4 % 09/09/2016 Cbc With Differential Ord2 MCV 96.5 fl 09/09/2016 Cbc With Differential Ord2 [place]% 10.2 % 09/09/2016 Cbc With Differential Ord2 [...] 1.83 K/ul 09/09/2016 Cbc With Differential Ord2 [place] ABS# 0.7 K/ul 09/09/2016 Cbc With Differential Ord2 Eos ABS# 0.1 K/ul 09/09/2016 Cbc With Differential Ord2 Baso ABS# 0.0 K/ul 09/09/2016 Tsh Ord6 hTSH II 1.64 uIU/mL 09/09/2016 Dilantin Ord7 DILANTIN 17.3 UG/ML 12/26/2015 Comp Metabolic Ukb998 NA 137 mEq/L 12/26/2015 Comp Metabolic Oyl963 K 4.3 mEq/L 12/26/2015 Comp Metabolic Ete797 CL 101 mEq/L 12/26/2015 Comp Metabolic Zjn955 CO2 27.0 mEq/L 12/26/2015 Comp Metabolic Cph955 ANION GAP 13 12/26/2015 Comp Metabolic Kuf301 GLUCOSE 128 mg/dL 12/26/2015 Comp Metabolic Rsu339 Creat 0.8 mg/dL 12/26/2015 Comp Metabolic Mqv102 eGFR 104 ml/min/1.73m2 12/26/2015 Comp Metabolic Ucp214 BUN 16 mg/dL 12/26/2015 Comp Metabolic Uym520 B/C Ratio 19.5 Ratio 12/26/2015 Comp Metabolic Hmz501 CALCIUM 9.2 mg/dL 12/26/2015 Comp Metabolic Zmg915 ALK PHOS 107 U/L 12/26/2015 Comp Metabolic Sel998 AST(SGOT) 15 U/L 12/26/2015 Comp Metabolic Zlk552 ALT(SGPT) 15 U/L 12/26/2015 Comp Metabolic Fal851 BILI T 0.4 mg/dL 12/26/2015 Comp Metabolic Nqg734 ALBUMIN 4.0 g/dL 12/26/2015 Comp Metabolic Ocl119 TPRO 7.6 g/dL 12/26/2015 Comp Metabolic Kkz367 GLOB 3.6 g/dL 12/26/2015 Comp Metabolic Yez275 A/G Ratio 1.1 Ratio 12/26/2015 Comp Metabolic Opg925 Osmo 277 mOsmo 12/26/2015 Tsh Ord6 hTSH [...] 99.4 fl 12/26/2015 Cbc With Differential Ord2 [place]% 8.7 % 12/26/2015 Cbc With Differential Ord2 MCH 34.3 pg 12/26/2015 Cbc With Differential Ord2 Eos% [...] 1.71 K/ul 12/26/2015 Cbc With Differential Ord2 [place] ABS# 0.7 K/ul 12/26/2015 Cbc With Differential Ord2 Eos ABS# 0.1 K/ul 12/26/2015 Cbc With Differential Ord2 Baso ABS# 0.0 K/ul 12/26/2015 Dilantin Ord7 DILANTIN 16.5 UG/ML 09/15/2015 Dilantin Ord7 DILANTIN 17.2 UG/ML 09/08/2015 Dilantin Ord7 DILANTIN 22.3 UG/ML 09/01/2015 Review of Systems System Result Effective Dates Constitutional No recent illness 01/27/2017 Constitutional No [...] Date TRIAMCINOLONE ACET INJ NOS CPT-4: J3301 11/20/2015 Vital Signs Date Vital 01/27/2017 Blood Pressure 1: 146/86 Code: 8480-6 BMI: 47.1 Code: 64869-9 Heart Rate 1: 97 bpm Height: 5'11" SpO2: 95% Weight: 338 lbs 12/27/2016 Blood Pressure 1: 154/74 Code: 8480-6 BMI: 48.5 Code: 11098-2 Heart Rate 1: 82 bpm Height: 5'11" SpO2: 96% Weight: 348 lbs 10/09/2016 Blood Pressure 1: 160/82 Code: 8480-6 BMI: 47.4 Code: 32310-8 Heart Rate 1: 77 bpm Height: 5'11" SpO2: 96% Weight: 340 lbs 09/09/2016 Blood Pressure 1: 140/80 Code: 8480-6 Heart Rate 1: 88 bpm Height: 5'11" SpO2: 96% Weight: 05/31/2016 Blood Pressure 1: 126/78 Code: 8480-6 BMI: 46.3 Code: 18565-5 Heart Rate 1: 75 bpm Height: 5'11" SpO2: 96% Weight: 332 lbs 03/29/2016 Blood Pressure 1: 146/78 Code: 8480-6 Heart Rate 1: 78 bpm Height: 5'11" SpO2: 97% Weight: 03/11/2016 Blood Pressure 1: 136/86 Code: 8480-6 BMI: 44.4 Code: 99656-4 Heart Rate 1: 77 bpm Height: 5'11" SpO2: 96% Weight: 318 lbs 02/23/2016 Blood Pressure 1: 146/94 Code: 8480-6 BMI: 44.4 Code: 29657-8 Heart Rate 1: 90 bpm Height: 5'11" SpO2: 93% Weight: 318 lbs 01/16/2016 Blood Pressure 1: 140/86 Code: 8480-6 BMI: 44.6 Code: 71163-7 Heart Rate 1: 75 bpm Height: 5'11" SpO2: 96% Weight: 320 lbs 12/26/2015 Blood Pressure 1: 130/78 Code: 8480-6 BMI: 43.7 Code: 85026-9 Heart Rate 1: 96 bpm Height: 5'11" SpO2: 98% Weight: 313 lbs 11/20/2015 Blood Pressure 1: 137/92 Code: 8480-6 Heart Rate 1: 84 bpm Height: SpO2: 98% Temperature: 36.7 (C) / 98.0 (F) Weight: 09/01/2015 Blood Pressure 1: 148/88 Code: 8480-6 BMI: 43.8 Code: 36671-4 Heart Rate 1: 73 bpm Height: 5'11" SpO2: 97% Weight: 314 lbs 08/09/2015 Blood Pressure 1: 138/78 Code: 8480-6 BMI: 45.0 Code: 29048-7 Heart Rate 1: 75 bpm Height: 5'11" SpO2: 98% Weight: 323 lbs 06/26/2015 Blood Pressure 1: 134/80 Code: 8480-6 BMI: 46.3 Code: 96742-1 Heart Rate 1: 78 bpm Height: 5'11" SpO2: 96% Weight: 332 lbs 11/18/2014 Blood Pressure 1: 130/78 Code: 8480-6 BMI: 44.4 Code: 22201-1 Heart Rate 1: 66 bpm Height: 5'11" SpO2: 98% Weight: 318 lbs 11/01/2014 Blood Pressure 1: 130/78 Code: 8480-6 BMI: 44.5 Code: 72301-0 Heart Rate 1: 78 bpm Height: 5'11" SpO2: 97% Weight: 319 lbs 10/27/2014 Blood Pressure 1: 152/88 Code: 8480-6 BMI: 43.9 Code: 54636-5 Heart Rate 1: 91 bpm Height: 5'11" SpO2: 98% Weight: 315 lbs 2014 Blood Pressure 1: 140/82 Code: 8480-6 BMI: 44.9 Code: 76305-2 Heart Rate 1: 78 bpm Height: 5'11" Weight: 322 lbs 05/05/2014 Blood Pressure 1: 142/88 Code: 8480-6 BMI: 40.9 Code: 81154-8 Heart Rate 1: 64 bpm Height: 5'11" Temperature: 37.3 (C) / 99.1 (F) Weight: 293 lbs 04/26/2014 Blood Pressure 1: 142/82 Code: 8480-6 BMI: 40.2 Code: 42836-7 Heart Rate 1: 64 bpm Height: 5'11" Weight: 288 lbs 03/29/2014 Blood Pressure 1: 138/84 Code: 8480-6 BMI: 39.3 Code: 78281-7 Heart Rate 1: 84 bpm Height: 5'11" Weight: 282 lbs Functional Status No Functional Status data History of Present Illness Symptom Name Status Result Effective Date Notes blood pressure followup Onset and Resolution ongoing [...] data Encounters Encounter Performer Location Codes Date ([id number]) [id number] EST. PATIENT, LEVEL III Diagnosis: Essential (primary) hypertension[ICD10: I10] Diagnosis: Epilepsy, unspecified, not intractable, without status epilepticus[ICD10: G40.909] Leelee Salamanca MD, [facility] CPT-4: 47923 01/27/2017 ([id number]) 47485 EST. PATIENT, LEVEL IV Diagnosis: Essential (primary) hypertension[ICD10: I10] Diagnosis: Epilepsy, unspecified, not intractable, without status epilepticus[ICD10: G40.909] Diagnosis: Pain in right wrist[ICD10: M25.531] Leelee Salamanca MD, [facility] CPT-4: 19871 12/27/2016 [id number] EST. PATIENT, LEVEL III Diagnosis: Rash and other nonspecific skin eruption[ICD10: R21] Elsie Salamanca MD, [facility] CPT-4: 77017 10/09/2016 ([id number]) 46924 EST. PATIENT, LEVEL III Diagnosis: Carpal tunnel syndrome, right upper limb[ICD10: G56.01] Diagnosis: Olecranon bursitis, right elbow[ICD10: M70.21] Betty Salamanca MD, [facility] CPT-4: 94886 09/09/2016 ([id number]) 01337 EST. PATIENT, LEVEL III Diagnosis: Essential (primary) hypertension[ICD10: I10] Diagnosis: Low back pain[ICD10: M54.5] Leelee Salamanca MD, [facility] CPT-4: 03952 05/31/2016 ([id number]) 47556 EST. PATIENT, LEVEL III Diagnosis: Essential (primary) hypertension[ICD10: I10] Diagnosis: Slow transit constipation[ICD10: K59.01] Leelee Salamanca MD, [facility] CPT-4: 21708 03/29/2016 ([id number]) 65976 EST. 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 PATIENT, LEVEL III Diagnosis: Acute laryngopharyngitis[ICD10: J06.0] Diagnosis: Other allergic rhinitis[ICD10: J30.89] Diagnosis: Cough[ICD10: R05] Diagnosis: Wheezing[ICD10: R06.2] Elsie Salamanca MD, [facility] CPT-4: 66796 02/23/2016 ([id number]) 47310 EST. PATIENT, LEVEL III Diagnosis: Epilepsy, unspecified, not intractable, without status epilepticus[ICD10: G40.909] Betty Salamanca MD, [facility] CPT-4: 61236 01/16/2016 ([id number]) 79123 EST. PATIENT, LEVEL IV Diagnosis: Essential (primary) hypertension[ICD10: I10] Diagnosis: Morbid (severe) obesity due to excess calories[ICD10: E66.01] Diagnosis: Epilepsy, unspecified, not intractable, without status epilepticus[ICD10: G40.909] Betty Salamanca MD, [facility] CPT-4: 75899 12/26/2015 ([id number]) 20458 EST. PATIENT, LEVEL III Diagnosis: Allergic rhinitis due to pollen[ICD10: J30.1] Diagnosis: Acute upper respiratory infection, unspecified[ICD10: J06.9] Leelee Salamanca MD, [facility] CPT-4: 94807 11/20/2015 84148 EST. PATIENT, LEVEL IV Diagnosis: Other [place] [facility] drug therapy[ICD10: Z79.899] Diagnosis: Candidiasis of skin and nail[ICD10: B37.2] [facility] CPT-4: 47154 09/01/2015 ([id number]) 49194 EST. PATIENT, LEVEL IV Diagnosis: Epilepsy, unspecified, not intractable, without status epilepticus[ICD10: G40.909] Diagnosis: Essential (primary) hypertension[ICD10: I10] Diagnosis: First degree hemorrhoids[ICD10: K64.0] Diagnosis: Low back pain[ICD10: M54.5] Betty Salamanca MD, [facility] CPT-4: 78734 08/09/2015 ([id number]) 76012 EST. PATIENT, LEVEL IV Diagnosis: Essential (primary) hypertension[ICD10: I10] Diagnosis: Morbid (severe) obesity due to excess calories[ICD10: E66.01] Diagnosis: Epilepsy, unspecified, not intractable, without status epilepticus[ICD10: G40.909] Betty Salamanca MD [facility] CPT-4: 73903 06/26/2015 ([id number]) 55514 EST. PATIENT, LEVEL IV Diagnosis: ESSENTIAL HYPERTENSION[ICD9: 401.9] Diagnosis: Small bowel obstruction[ICD9: 560.9] Diagnosis: Hospital discharge follow-up[ICD9: V67.59] Betty Salamanca MD [facility] CPT-4: 98969 11/18/2014 ([id number]) 47425 EST. PATIENT, LEVEL III Diagnosis: Diarrhea[ICD9: 787.91] Diagnosis: Abdominal pain[ICD9: 789.00] Betty Salamanca MD [facility] CPT-4: 77754 11/01/2014 ([id number]) 29805 EST. PATIENT, LEVEL III Diagnosis: ESSENTIAL HYPERTENSION[ICD9: 401.9] Diagnosis: Diarrhea[ICD9: 787.91] Leelee Salamnaca MD, [facility] CPT-4: 19117 10/27/2014 ([id number]) 16218 EST. PATIENT, LEVEL IV Diagnosis: Factor V Leiden mutation[ICD9: 289.81] Diagnosis: Hx of deep venous thrombosis[ICD9: V12.51] Diagnosis: ESSENTIAL HYPERTENSION[ICD9: 401.9] Diagnosis: OBESITY[ICD9: 278.00] Betty Salamanca MD, [facility] CPT-4: 00168 2014 ([id number]) [id number] EST. PATIENT, LEVEL III Diagnosis: Hematuria[ICD9: 599.70] Diagnosis: LONG-TERM USE ANTICOAGUL[ICD9: V58.61] Leelee Salamanca MD, [facility] CPT-4: 24454 05/05/2014 ([id number]) [id number] EST. PATIENT, LEVEL IV Diagnosis: ESSENTIAL HYPERTENSION[ICD9: 401.9] Diagnosis: LONG-TERM USE ANTICOAGUL[ICD9: V58.61] Diagnosis: MORBID OBESITY[ICD9: 278.01] Diagnosis: Abscess and cellulitis[ICD9: 682.9] Betty Salamanca MD, [facility] CPT- 4: 16018 04/26/2014 ([id number]) OFFICE VISIT, NEW - LEVEL 4 Diagnosis: ESSENTIAL HYPERTENSION[ICD9: 401.9] Diagnosis: LONG-TERM USE ANTICOAGUL[ICD9: V58.61] [facility] CPT-4: 98069 03/29/2014 Plan of Care Planned Activity Notes Codes Status Date Visit Plan: Hypertension - improved - continue with current medications, continue with no added salt diet. Pt has been encouraged to exercise daily. The pt has been advised to call the office if there are any ac noam concerns about change in blood pressure readings at home. Obesity-lost 10#- continue diet/exercise Epilepsy-check dilantin level 01/27/2017 Appointment: Leelee Weinstein WPtel: [facility]9 [phone] (30 min) Complex 01/27/2017 Patient [...] Dr Ordaz 12/27/2016 Appointment: Leelee Weinstein WPtel: [facility]5 [phone] (30 min) Complex 12/27/2016 Patient Education: Patient Medication Summary Completed 12/27/2016 Care Plan: Referral Order SNOMED-CT : [id number] Pending 12/27/2016 Visit Plan: Rash - pt [...] Obesity Completed 10/09/2016 Appointment: Leelee Weinstein WPtel: [facility]5 [phone] (30 min) Complex 10/04/2016 Visit Plan: on the rash on your foot, use benadryl cream mixed with cortisone cream - use a jerica size portion of both Carpal tunnel -wear a carpal tunnel brace at night and a tennis elbow brace during the day use aspercreme on your elbow and wrist at least twice a day 09/09/2016 Appointment: Betty Salamanca WPtel: [facility]5 [phone] (15 min) Moderate 09/09/2016 Patient Education: [...] not improve. 05/31/2016 Appointment: Leelee Weinstein WPtel: [facility]5 [phone] [place] (30 min) Complex 05/31/2016 Patient Education: Patient Medication Summary Completed 05/31/2016 Patient Education: Obesity Completed 05/31/2016 Patient Education: Hypertension Completed 05/31/2016 Appointment: Leelee Weinstein WPtel: [facility]5 [phone] [place] (30 min) Complex 04/01/2016 [...] plan. 03/29/2016 Appointment: Leelee Weinstein WPtel: [phone] [phone] (15 min) Moderate 03/29/2016 Patient Education: Patient Medication Summary Completed 03/29/2016 Patient Education: Hypertension Completed 03/29/2016 Visit Plan: Bilateral PE-hospital follow up-on xarelto-symptoms improving Goshm-nbyzgkmrqg-bbvgqrfz-continue symbicort twice daily as directed Hypertension - well controlled - continue with current medications, continue with no added salt diet. Pt has been encouraged to exercise daily. The pt has been advised to call the office if there are any acute concerns about change in blood pressure readings at home. 03/11/2016 Appointment: Leelee Weinstein WPtel: [phone] [phone] (30 min) Complex 03/11/2016 Patient [...] spray. 02/23/2016 Appointment: Elsie Mosquera WPtel: [phone] [phone] (15 min) Moderate 02/23/2016 Patient Education: Patient Medication Summary Completed 02/23/2016 Patient Education: Obesity Completed 02/23/2016 Visit Plan: Epilepsy - continue with phenytek wound improving 01/16/2016 Appointment: Betty Salamanca WPtel: [phone] [facility] (15 min) Moderate 01/16/2016 Patient Education: Patient [...] anti-epileptic 12/26/2015 Appointment: Betty Salamanca WPtel: [phone] [facility] (15 min) Moderate 12/26/2015 Patient Education: [...] not resolve 11/20/2015 Appointment: Leelee Weinstein WPtel: [phone] [phone] [place] (15 min) Moderate 11/20/2015 [...] in pain. 09/01/2015 Appointment: Leelee Weinstein WPtel: [facility]2 [phone] (30 min) [facility] 09/01/2015 Patient Education: Patient Medication Summary Completed 09/01/2015 Referral: Ady Oswald WPtel:[phone] Referral Completed 08/30/2015 Visit Plan: Hypertension - [...] 08/09/2015 Care Plan: Referral Order SNOMED-CT : [id number] Pending 07/12/2015 Visit Plan: Hypertension - well [...] flagyl. 11/01/2014 [facility]ment[phone] ([facility] min) Moderate 11/01/2014 Patient Education: [...] closely - 2014 Appointment: [facility] Sal[facility]anca [facility]el[facility] [facility] 2014 Patient Education: Patient Medication Summary Completed 2014 Patient Education: Hypertension Completed 2014 Care Plan: Referral Order SNOMED-CT : [id number] Ordered 2014 Visit Plan: Hematuria-per patient report-no [...] weight check. 04/26/2014 Appointment: Betty Salamanca WPtel: [address] [place], [place] [phone] Follow up 04/26/2014 Patient Education: Patient Medication [...] and 3.5. 03/29/2014 Appointment: Betty Salamanca WPtel: [facility]5 [facility] New Patient 03/29/2014 Patient Education: Patient Medication Summary Completed 03/29/2014 Patient Education: Hypertension Completed 03/29/2014 Referral: Madhu Hall MD WPtel: Via [address] [place] Referral Completed Referral: Edilson Ordaz [facility] [place] Referral Appointment Requested Referral: Ady Oswald WPtel:[phone] Referral Appointment Requested Instructions Comment . URI [...] nasal steroid allergy spray. . Hypertension - elevated today but well [...] to decrease calories and avoid snacking . Hypertension - well controlled - continue [...] pain is worsening or does not improve. Check UA with c&s if indicated Check [...] in blood pressure readings at home. Constipation-reassured Padna that he does not have a bowel obstruction-normal formed BMs the last 2 days-no abdominal pain-good bowel sounds-instructed adequate water and fiber intake and to call if symptoms uncontrolled-patient verbalized understanding of plan. Symbicort sample given . Bilateral PE-hospital follow up-on xarelto-symptoms improving Bdfkl-vxjsyldqep-tdghxthx-continue symbicort twice daily as directed Hypertension - [...] Right wrist pain-refer to Dr Ordaz . Epilepsy - continue with phenytek wound [...] intake - monitor weight closely - . Diarrhea - recommended bland diet, low [...]
--- OUTSIDE RECORDS SUMMARY | 2018-09-06 06:48 | XMS REPORT | Continuity of Care Document ---
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 Ot Z79.82 METER MECHANIC (CURRENT) USE OF ASPIRIN 02/19/2016 INDERJIT DELGADO DIRECTOR TECHNICAL Ot Z79.899 OTHER METER MECHANIC (CURRENT) DRUG THERAPY 02/19/2016 Ot 724.4 LUMBOSACRAL NEURITIS NOS 02/19/2016 Ot 715.97 OSTEOARTHROS NOS-ANKLE 02/19/2016 Ot 729.5 PAIN IN LIMB 02/19/2016 DEEPALI MOTA UNHAIRER Ot 719.07 JOINT EFFUSION-ANKLE 02/19/2016 DEEPALI MOTA UNHAIRER Ot 719.47 JOINT PAIN-ANKLE 02/19/2016 MARCELO ZAYAS DIRECTOR TECHNICAL Ot 345.90 EPILEPSY UNSPEC W/O MENTION INTRACTABLE 02/19/2016 RAMÍREZ COPPOLA, MARYCRUZ M Ot 562.11 DIVERTICULITIS COLON (W/O MENT OF HEMORR 02/19/2016 RAMÍREZ COPPOLA, MARYCRUZ M Ot 255.8 ADRENAL DISORDER NEC 02/19/2016 RAMÍREZ COPPOLA, MARYCRUZ Spicer Ot 553.1 UMBILICAL HERNIA 02/19/2016 RAMÍREZ COPPOLA, MARYCRUZ Spicer Ot 562.11 DIVERTICULITIS COLON (W/O MENT OF HEMORR 02/19/2016 RAMÍREZ COPPOLA, MARYCRUZ Spicer Ot 569.5 INTESTINAL ABSCESS 02/19/2016 MARYCRUZ ELMORE MD Ot V72.84 EXAM PRE-OPERATIVE NOS 02/19/2016 RAMÍREZ COPPOLA, MARYCRUZ Spicer Ot 553.1 UMBILICAL HERNIA 02/19/2016 MARYCRUZ ELMORE MD Ot 562.11 DIVERTICULITIS COLON (W/O MENT OF HEMORR 02/19/2016 MARYCRUZ ELMORE MD M Ot 592.0 CALCULUS OF KIDNEY 02/19/2016 MARYCRUZ ELMORE MD Ot 562.11 DIVERTICULITIS COLON (W/O MENT OF HEMORR 02/19/2016 MARYCRUZ ELMORE MD Ot V72.63 PRE-PROCEDURAL LABORATORY EXAMINATION 02/19/2016 RAMÍREZ COPPOLA, MARYCRUZ Spicer Ot V74.8 SCREEN-BACTERIAL DIS NEC 02/19/2016 Ot 345.90 EPILEPSY UNSPEC W/O MENTION INTRACTABLE 02/19/2016 Ot V58.69 OTH MED,LT,CURRENT USE 02/19/2016 LILIANA COPPOLA, BRYCE Mallory Ot 780.39 OTHER CONVULSIONS 02/19/2016 BRYCE FORD MD Ot V58.61 ANTICOAGULANTS,LT,CURRENT USE 02/19/2016 BRYCE FORD MD L Ot V58.69 OTH MED,LT,CURRENT USE 02/19/2016 BRYCE FORD MD L Ot V58.83 ENCOUNTER FOR THERAPEUTIC DRUG MONITORIN 02/19/2016 RAMÍREZ COPPOLA, MARYCRUZ Spicer Ot 276.8 HYPOPOTASSEMIA 02/19/2016 LILIANA COPPOLA, BRYCE Mallory Ot 345.90 EPILEPSY UNSPEC W/O MENTION INTRACTABLE 02/19/2016 BRYCE FORD MD Ot V58.61 ANTICOAGULANTS,LT,CURRENT USE 02/19/2016 BRYCE FORD MD Ot V58.69 OTH MED,LT,CURRENT USE 02/19/2016 BRYCE FORD MD L Ot V58.83 ENCOUNTER FOR THERAPEUTIC DRUG MONITORIN 02/19/2016 BRYCE FORD MD L Ot 415.19 OTH PULMON EMBOLISM/INFARCT 02/19/2016 BRYCE FORD MD L Ot V58.61 ANTICOAGULANTS,LT,CURRENT USE 02/19/2016 BRYCE FORD MD L Ot V58.83 ENCOUNTER FOR THERAPEUTIC DRUG MONITORIN 02/19/2016 BRYCE FORD MD L Ot 780.39 OTHER CONVULSIONS 02/19/2016 BRYCE FORD MD Ot V58.69 OTH MED,LT,CURRENT USE 02/19/2016 BRYCE FORD MD Ot V58.61 ANTICOAGULANTS,LT,CURRENT USE 02/19/2016 BRYCE FORD MD L Ot V58.83 ENCOUNTER FOR THERAPEUTIC DRUG MONITORIN 02/19/2016 RAMÍREZ COPPOLA, MARYCRUZ Spicer Ot 560.9 INTESTINAL OBSTRUCT NOS 02/19/2016 MARYCRUZ ELMORE MD Ot 560.9 INTESTINAL OBSTRUCT NOS 02/19/2016 MARYCRUZ ELMORE MD Ot V58.69 OTH MED,LT,CURRENT USE 02/19/2016 RAMÍREZ COPPOLA, MARYCRUZ Spicer Ot V72.63 PRE-PROCEDURAL LABORATORY EXAMINATION 02/19/2016 RAMÍREZ COPPOLA, MARYCRUZ Spicer Ot V74.8 SCREEN-BACTERIAL DIS NEC 02/19/2016 ALYSON COPPOLA FAC, ALI FACP CCDS Ot 278.00 OBESITY, NOS 02/19/2016 ALYSON COPPOLA FACC, ALI FACP CCDS Ot 345.90 EPILEPSY UNSPEC W/O MENTION INTRACTABLE 02/19/2016 ALYSON COPPOLA FACC, ALI FACP CCDS Ot 401.9 HYPERTENSION NOS 02/19/2016 ALYSON COPPOLA FACC, ALI FACP CCDS Ot 786.50 CHEST PAIN NOS 02/19/2016 ALYSON COPPOLA FACC, ALI FACP CCDS Ot V85.37 BODY MASS INDEX 37.0-37.9, ADULT 02/19/2016 RAMÍREZ COPPOLA, MARYCRUZ Spicer Ot 415.19 OTH PULMON EMBOLISM/INFARCT 02/19/2016 RAMÍREZ COPPOLA, MARYCRUZ Spicer Ot 415.19 OTH PULMON EMBOLISM/INFARCT 02/19/2016 RAMÍREZ COPPOLA, MARYCRUZ Spicer Ot 789.59 OTHER ASCITES 02/19/2016 RAMÍREZ COPPOLA, MARYCRUZ Spicer Ot 789.59 OTHER ASCITES 02/19/2016 NITA SCHROEDER Ot D68.59 OTHER PRIMARY THROMBOPHILIA 02/19/2016 NITA SCHROEDER Ot Z79.01 FPC (CURRENT) USE OF ANTICOAGULANT 02/19/2016 NITA SCHROEDER Ot Z86.711 PERSONAL HISTORY OF PULMONARY EMBOLISM 02/19/2016 Ot Z51.81 ENCOUNTER FOR THERAPEUTIC DRUG LEVEL MON 02/19/2016 Ot Z79.899 OTHER FPC (CURRENT) DRUG THERAPY 02/19/2016 ZAIN GONZALESP Ot D68.59 OTHER PRIMARY THROMBOPHILIA 02/19/2016 ZAIN GONZALES UNHAIRER Ot Z79.01 FPC (CURRENT) USE OF ANTICOAGULANT 02/19/2016 ZAIN GONZALES UNHAIRER Ot Z86.711 PERSONAL HISTORY OF PULMONARY EMBOLISM 03/04/2016 INGRID DOSHI MD Ot E66.01 MORBID (SEVERE) OBESITY DUE TO EXCESS CA 03/04/2016 INGRID DOSHI MD Ot G40.909 EPILEPSY, UNSP, NOT INTRACTABLE, WITHOUT 03/04/2016 INGRID DOSHI MD Ot G47.33 OBSTRUCTIVE SLEEP APNEA (ADULT) (PEDIATR 03/04/2016 INGRID DOSHI MD, Ot I10 ESSENTIAL (PRIMARY) HYPERTENSION 03/04/2016 INGRID DOSHI MD, Ot I26.92 SADDLE EMBOLUS OF PULMONARY ARTERY W/O A 03/04/2016 INGRID DOSHI MD, Ot I82.433 ACUTE EMBOLISM AND THROMBOSIS OF POPLITE 03/04/2016 INGRID DSOHI MD, Ot Z68.42 BODY MASS INDEX (BMI) 45.0-49.9, ADULT 10/30/2017 INGRID DOSHI MD, Ot D50.9 IRON DEFICIENCY ANEMIA, UNSPECIFIED 11/13/2017 INGRID DOSHI MD, Ot D50.9 IRON DEFICIENCY ANEMIA, UNSPECIFIED Procedures Code Description Performed By Performed On 38.93 VENOUS CATHETERIZATION NEC 10/06/2013 45.76 OPEN AND OTHER SIGMOIDECTOMY 10/06/2013 46.01 SM BOWEL EXTERIORIZATION 10/06/2013 47.19 OTH INCIDENT APPENDECTOMY 10/06/2013 54.51 LAPAROSCOP LYSIS-PERITONEAL ADHES 10/06/2013 46.51 SM BOWEL STOMA CLOSURE 12/17/2013 96.07 INSERT GASTRIC TUBE NEC 12/18/2013 Results Test Result Range PT panel in platelet poor plasma by coagulation assay - 02/27/16 09:30 Prothrombin time (PT) in platelet poor plasma by coagulation assay 11.9 s 12.2-14.7 INR in platelet poor plasma or blood by coagulation assay 0.9 0.8-1.4 Activated partial thromboplastin time (aPTT) in platelet poor plasma bycoagulation assay - 02/27/16 09:30 Activated partial thromboplastin time (aPTT) in platelet poor plasma bycoagulation assay 23 s 24-35 Bacterial blood culture - 02/27/16 09:30 Bacterial blood culture NG NRG Complete blood count (CBC) with automated white blood cell (WBC) differential - 02/27/16 09:50 Blood leukocytes automated count (number/volume) 14.1 10*3/uL 4.3-11.0 Blood erythrocytes automated count (number/volume) 5.38 10*6/uL 4.35-5.85 Venous blood hemoglobin measurement (mass/volume) 17.7 g/dL 13.3-17.7 Blood hematocrit (volume fraction) 50 % 40-54 Automated erythrocyte mean corpuscular volume 94 [foz_us] 80-99 Automated erythrocyte mean corpuscular hemoglobin (mass per erythrocyte) 33 pg 25-34 Automated erythrocyte mean corpuscular hemoglobin concentration measurement (mass/volume) 35 g/dL 32-36 Automated erythrocyte distribution width ratio 14.1 % 10.0- 14.5 Automated blood platelet count (count/volume) 199 10*3/uL 130-400 Automated blood platelet mean volume measurement 9.6 [foz_us] 7.4-10.4 Automated blood neutrophils/100 leukocytes 74 % 42-75 Automated blood lymphocytes/100 leukocytes 17 % 12-44 Blood monocytes/100 leukocytes 8 % 0-12 Automated blood eosinophils/100 leukocytes 1 % 0-10 Automated blood basophils/100 leukocytes 0 % 0-10 Blood neutrophils automated count (number/volume) 10.5 10*3 1.8-7.8 Blood lymphocytes automated count (number/volume) 2.4 10*3 1.0-4.0 Blood monocytes automated count (number/volume) 1.1 10*3 0.0- 1.0 Automated eosinophil count 0.1 10*3/uL 0.0-0.3 Automated blood basophil count (count/volume) 0.0 10*3/uL 0.0-0.1 Blood lactic acid measurement (moles/volume) - 02/27/16 09:50 Blood lactic acid measurement (moles/volume) 2.8 mmol/L 0.5- 2.0 Comprehensive metabolic panel - 02/27/16 09:50 Serum or plasma sodium measurement (moles/volume) 139 mmol/L 135-145 Serum or plasma potassium measurement (moles/volume) 4.0 mmol/L 3.6-5.0 Serum or plasma chloride measurement (moles/volume) 107 mmol/L 98-107 Carbon dioxide 18 mmol/L 21-32 Serum or plasma anion gap determination (moles/volume) 14 mmol/L 5-14 Serum or plasma urea nitrogen measurement (mass/volume) 16 mg/dL 7-18 Serum or plasma creatinine measurement (mass/volume) 0.81 mg/dL 0.60-1.30 Serum or plasma urea nitrogen/creatinine mass ratio 20 NRG Serum or plasma creatinine measurement with calculation of estimated glomerular filtration rate > NRG Serum or plasma glucose measurement (mass/volume) 108 mg/dL 70-105 Serum or plasma calcium measurement (mass/volume) 9.1 mg/dL 8.5-10.1 Serum or plasma total bilirubin measurement (mass/volume) 0.5 mg/dL 0.1-1.0 Serum or plasma alkaline phosphatase measurement (enzymatic activity/volume) 147 U/L 40-136 Serum or plasma aspartate aminotransferase measurement (enzymatic activity/volume) 37 U/L 5-34 Serum or plasma alanine aminotransferase measurement (enzymatic activity/volume) 45 U/L 0-55 Serum or plasma protein measurement (mass/volume) 8.0 g/dL 6.4-8.2 Serum or plasma albumin measurement (mass/volume) 3.9 g/dL 3.2-4.5 Serum or plasma C reactive protein measurement (mass/volume) - 02/27/16 09:50 Serum or plasma C reactive protein measurement (mass/volume) 1.83 mg/dL 0.00-0.50 Blood manual differential performed detection - 02/27/16 09:50 Blood monocytes/100 leukocytes 5 % NRG Manual blood segmented neutrophils/100 leukocytes 72 % NRG Blood band neutrophils/100 leukocytes 2 % NRG Manual blood lymphocytes/100 leukocytes 21 % NRG Manual eosinophils/100 leukocytes in nose 0 % NRG Manual blood basophils/100 leukocytes 0 % NRG Blood erythrocyte morphology finding identification NORMAL NRG Bacterial blood culture - 02/27/16 10:04 Bacterial blood culture NG NRG Complete urinalysis with reflex to culture - 02/27/16 10:20 Urine color determination YELLOW NRG Urine clarity determination CLEAR NRG Urine pH measurement by test strip 6 5-9 Specific gravity of urine by test strip 1.025 1.016-1.022 Urine protein assay by test strip, semi-quantitative 2+ NEGATIVE Urine glucose detection by automated test strip NEGATIVE NEGATIVE Erythrocytes detection in urine sediment by light microscopy NEGATIVE NEGATIVE Urine ketones detection by automated test strip NEGATIVE NEGATIVE Urine nitrite detection by test strip NEGATIVE NEGATIVE Urine total bilirubin detection by test strip NEGATIVE NEGATIVE Urine urobilinogen measurement by automated test strip (mass/volume) NORMAL NORMAL Urine leukocyte esterase detection by dipstick 1+ NEGATIVE Automated urine sediment erythrocyte count by microscopy (number/high power field) NONE NRG Automated urine sediment leukocyte count by microscopy (number/high power field) RARE NRG Bacteria detection in urine sediment by light microscopy NEGATIVE NRG Squamous epithelial cells detection in urine sediment by light microscopy RARE NRG Crystals detection in urine sediment by light microscopy NONE NRG Casts detection in urine sediment by light microscopy NONE NRG Mucus detection in urine sediment by light microscopy SMALL NRG Complete urinalysis with reflex to culture NO NRG Serum or plasma lactate measurement (moles/volume) - 02/27/16 12:00 Serum or plasma lactate measurement (moles/volume) 1.3 mmol/L 0.5-2.0 Influenza virus A and B antigen detection - 02/27/16 12:30 FLU RESULT NEGATIVE FOR INFLUENZA A AND B ANTIGENS BY IA NRG Activated partial thromboplastin time (aPTT) in platelet poor plasma bycoagulation assay - 02/27/16 17:05 Activated partial thromboplastin time (aPTT) in platelet poor plasma bycoagulation assay 29 s 24-35 Sputum Gram stain - 02/27/16 20:00 GRAM STAIN SPUTUM AND MIXED BACTERIAL SEBASTIÁN NRG Bacterial sputum culture - 02/27/16 20:00 Bacterial sputum culture NORMAL NRG Activated partial thromboplastin time (aPTT) in platelet poor plasma bycoagulation assay - 02/28/16 00:30 Activated partial thromboplastin time (aPTT) in platelet poor plasma bycoagulation assay 57 s 24-35 Whole blood basic metabolic panel - 02/28/16 05:50 Serum or plasma sodium measurement (moles/volume) 136 mmol/L 135-145 Serum or plasma potassium measurement (moles/volume) 3.6 mmol/L 3.6-5.0 Serum or plasma chloride measurement (moles/volume) 108 mmol/L 98-107 Carbon dioxide 15 mmol/L 21-32 Serum or plasma anion gap determination (moles/volume) 13 mmol/L 5-14 Serum or plasma urea nitrogen measurement (mass/volume) 12 mg/dL 7-18 Serum or plasma creatinine measurement (mass/volume) 0.79 mg/dL 0.60-1.30 Serum or plasma urea nitrogen/creatinine mass ratio 15 NRG Serum or plasma creatinine measurement with calculation of estimated glomerular filtration rate > NRG Serum or plasma glucose measurement (mass/volume) 223 mg/dL 70-105 Serum or plasma calcium measurement (mass/volume) 7.7 mg/dL 8.5-10.1 Serum or plasma phosphate measurement (mass/volume) - 02/28/16 05:50 Serum or plasma phosphate measurement (mass/volume) 5.1 mg/dL 2.3-4.7 Magnesium - 02/28/16 05:50 Magnesium 1.9 mg/dL 1.8-2.4 Complete blood count (CBC) with automated white blood cell (WBC) differential - 02/28/16 05:50 Blood leukocytes automated count (number/volume) 11.4 10*3/uL 4.3-11.0 Blood erythrocytes automated count (number/volume) 4.53 10*6/uL 4.35-5.85 Venous blood hemoglobin measurement (mass/volume) 15.1 g/dL 13.3-17.7 Blood hematocrit (volume fraction) 43 % 40-54 Automated erythrocyte mean corpuscular volume 96 [foz_us] 80-99 Automated erythrocyte mean corpuscular hemoglobin (mass per erythrocyte) 33 pg 25-34 Automated erythrocyte mean corpuscular hemoglobin concentration measurement (mass/volume) 35 g/dL 32-36 Automated erythrocyte distribution width ratio 14.2 % 10.0- 14.5 Automated blood platelet count (count/volume) 181 10*3/uL 130-400 Automated blood platelet mean volume measurement 9.7 [foz_us] 7.4-10.4 Automated blood neutrophils/100 leukocytes 68 % 42-75 Automated blood lymphocytes/100 leukocytes 24 % 12-44 Blood monocytes/100 leukocytes 8 % 0-12 Automated blood eosinophils/100 leukocytes 0 % 0-10 Automated blood basophils/100 leukocytes 0 % 0-10 Blood neutrophils automated count (number/volume) 7.8 10*3 1.8-7.8 Blood lymphocytes automated count (number/volume) 2.7 10*3 1.0-4.0 Blood monocytes automated count (number/volume) 0.9 10*3 0.0- 1.0 Automated eosinophil count 0.1 10*3/uL 0.0-0.3 Automated blood basophil count (count/volume) 0.0 10*3/uL 0.0-0.1 Activated partial thromboplastin time (aPTT) in platelet poor plasma bycoagulation assay - 02/28/16 05:50 Activated partial thromboplastin time (aPTT) in platelet poor plasma bycoagulation assay > s 24-35 Activated partial thromboplastin time (aPTT) in platelet poor plasma bycoagulation assay - 02/28/16 14:00 Activated partial thromboplastin time (aPTT) in platelet poor plasma bycoagulation assay 37 s 24-35 Activated partial thromboplastin time (aPTT) in platelet poor plasma bycoagulation assay - 02/28/16 21:46 Activated partial thromboplastin time (aPTT) in platelet poor plasma bycoagulation assay 52 s 24-35 Complete blood count (CBC) with automated white blood cell (WBC) differential - 02/29/16 05:08 Blood leukocytes automated count (number/volume) 9.9 10*3/uL 4.3-11.0 Blood erythrocytes automated count (number/volume) 4.43 10*6/uL 4.35-5.85 Venous blood hemoglobin measurement (mass/volume) 14.5 g/dL 13.3-17.7 Blood hematocrit (volume fraction) 43 % 40-54 Automated erythrocyte mean corpuscular volume 97 [foz_us] 80-99 Automated erythrocyte mean corpuscular hemoglobin (mass per erythrocyte) 33 pg 25-34 Automated erythrocyte mean corpuscular hemoglobin concentration measurement (mass/volume) 34 g/dL 32-36 Automated erythrocyte distribution width ratio 14.4 % 10.0- 14.5 Automated blood platelet count (count/volume) 175 10*3/uL 130-400 Automated blood platelet mean volume measurement 9.9 [foz_us] 7.4-10.4 Automated blood neutrophils/100 leukocytes 65 % 42-75 Automated blood lymphocytes/100 leukocytes 26 % 12-44 Blood monocytes/100 leukocytes 8 % 0-12 Automated blood eosinophils/100 leukocytes 1 % 0-10 Automated blood basophils/100 leukocytes 0 % 0-10 Blood neutrophils automated count (number/volume) 6.5 10*3 1.8-7.8 Blood lymphocytes automated count (number/volume) 2.6 10*3 1.0-4.0 Blood monocytes automated count (number/volume) 0.8 10*3 0.0- 1.0 Automated eosinophil count 0.1 10*3/uL 0.0-0.3 Automated blood basophil count (count/volume) 0.0 10*3/uL 0.0-0.1 Activated partial thromboplastin time (aPTT) in platelet poor plasma bycoagulation assay - 02/29/16 05:08 Activated partial thromboplastin time (aPTT) in platelet poor plasma bycoagulation assay 54 s 24-35 Whole blood basic metabolic panel - 02/29/16 05:08 Serum or plasma sodium measurement (moles/volume) 138 mmol/L 135-145 Serum or plasma potassium measurement (moles/volume) 3.7 mmol/L 3.6-5.0 Serum or plasma chloride measurement (moles/volume) 110 mmol/L 98-107 Carbon dioxide 19 mmol/L 21-32 Serum or plasma anion gap determination (moles/volume) 9 mmol/L 5-14 Serum or plasma urea nitrogen measurement (mass/volume) 12 mg/dL 7-18 Serum or plasma creatinine measurement (mass/volume) 0.71 mg/dL 0.60-1.30 Serum or plasma urea nitrogen/creatinine mass ratio 17 NRG Serum or plasma creatinine measurement with calculation of estimated glomerular filtration rate > NRG Serum or plasma glucose measurement (mass/volume) 107 mg/dL 70-105 Serum or plasma calcium measurement (mass/volume) 8.1 mg/dL 8.5-10.1 Serum or plasma phosphate measurement (mass/volume) - 02/29/16 05:08 Serum or plasma phosphate measurement (mass/volume) 3.2 mg/dL 2.3-4.7 Magnesium - 02/29/16 05:08 Magnesium 2.2 mg/dL 1.8-2.4 Activated partial thromboplastin time (aPTT) in platelet poor plasma bycoagulation assay - 02/29/16 12:35 Activated partial thromboplastin time (aPTT) in platelet poor plasma bycoagulation assay 74 s 24-35 Activated partial thromboplastin time (aPTT) in platelet poor plasma bycoagulation assay - 02/29/16 18:35 Activated partial thromboplastin time (aPTT) in platelet poor plasma bycoagulation assay 63 s 24-35 Activated partial thromboplastin time (aPTT) in platelet poor plasma bycoagulation assay - 03/01/16 01:04 Activated partial thromboplastin time (aPTT) in platelet poor plasma bycoagulation assay 80 s 24-35 Complete blood count (CBC) with automated white blood cell (WBC) differential - 03/01/16 06:23 Blood leukocytes automated count (number/volume) 9.1 10*3/uL 4.3-11.0 Blood erythrocytes automated count (number/volume) 4.19 10*6/uL 4.35-5.85 Venous blood hemoglobin measurement (mass/volume) 14.1 g/dL 13.3-17.7 Blood hematocrit (volume fraction) 41 % 40-54 Automated erythrocyte mean corpuscular volume 98 [foz_us] 80-99 Automated erythrocyte mean corpuscular hemoglobin (mass per erythrocyte) 34 pg 25-34 Automated erythrocyte mean corpuscular hemoglobin concentration measurement (mass/volume) 34 g/dL 32-36 Automated erythrocyte distribution width ratio 14.5 % 10.0- 14.5 Automated blood platelet count (count/volume) 167 10*3/uL 130-400 Automated blood platelet mean volume measurement 9.9 [foz_us] 7.4-10.4 Automated blood neutrophils/100 leukocytes 65 % 42-75 Automated blood lymphocytes/100 leukocytes 27 % 12-44 Blood monocytes/100 leukocytes 7 % 0-12 Automated blood eosinophils/100 leukocytes 1 % 0-10 Automated blood basophils/100 leukocytes 0 % 0-10 Blood neutrophils automated count (number/volume) 5.9 10*3 1.8-7.8 Blood lymphocytes automated count (number/volume) 2.4 10*3 1.0-4.0 Blood monocytes automated count (number/volume) 0.7 10*3 0.0- 1.0 Automated eosinophil count 0.1 10*3/uL 0.0-0.3 Automated blood basophil count (count/volume) 0.0 10*3/uL 0.0-0.1 Activated partial thromboplastin time (aPTT) in platelet poor plasma bycoagulation assay - 03/01/16 06:23 Activated partial thromboplastin time (aPTT) in platelet poor plasma bycoagulation assay 79 s 24-35 Whole blood basic metabolic panel - 03/01/16 06:23 Serum or plasma sodium measurement (moles/volume) 137 mmol/L 135-145 Serum or plasma potassium measurement (moles/volume) 3.6 mmol/L 3.6-5.0 Serum or plasma chloride measurement (moles/volume) 111 mmol/L 98-107 Carbon dioxide 18 mmol/L 21-32 Serum or plasma anion gap determination (moles/volume) 8 mmol/L 5-14 Serum or plasma urea nitrogen measurement (mass/volume) 9 mg/dL 7-18 Serum or plasma creatinine measurement (mass/volume) 0.71 mg/dL 0.60-1.30 Serum or plasma urea nitrogen/creatinine mass ratio 13 NRG Serum or plasma creatinine measurement with calculation of estimated glomerular filtration rate > NRG Serum or plasma glucose measurement (mass/volume) 113 mg/dL 70-105 Serum or plasma calcium measurement (mass/volume) 8.4 mg/dL 8.5-10.1 Serum or plasma phosphate measurement (mass/volume) - 03/01/16 06:23 Serum or plasma phosphate measurement (mass/volume) 3.3 mg/dL 2.3-4.7 Magnesium - 03/01/16 06:23 Magnesium 2.2 mg/dL 1.8-2.4 Complete blood count (CBC) with automated white blood cell (WBC) differential - 03/02/16 05:40 Blood leukocytes automated count (number/volume) 9.4 10*3/uL 4.3-11.0 Blood erythrocytes automated count (number/volume) 4.31 10*6/uL 4.35-5.85 Venous blood hemoglobin measurement (mass/volume) 14.2 g/dL 13.3-17.7 Blood hematocrit (volume fraction) 42 % 40-54 Automated erythrocyte mean corpuscular volume 98 [foz_us] 80-99 Automated erythrocyte mean corpuscular hemoglobin (mass per erythrocyte) 33 pg 25-34 Automated erythrocyte mean corpuscular hemoglobin concentration measurement (mass/volume) 34 g/dL 32-36 Automated erythrocyte distribution width ratio 14.5 % 10.0- 14.5 Automated blood platelet count (count/volume) 156 10*3/uL 130-400 Automated blood platelet mean volume measurement 9.6 [foz_us] 7.4-10.4 Automated blood neutrophils/100 leukocytes 80 % 42-75 Automated blood lymphocytes/100 leukocytes 14 % 12-44 Blood monocytes/100 leukocytes 5 % 0-12 Automated blood eosinophils/100 leukocytes 1 % 0-10 Automated blood basophils/100 leukocytes 0 % 0-10 Blood neutrophils automated count (number/volume) 7.5 10*3 1.8-7.8 Blood lymphocytes automated count (number/volume) 1.3 10*3 1.0-4.0 Blood monocytes automated count (number/volume) 0.4 10*3 0.0- 1.0 Automated eosinophil count 0.1 10*3/uL 0.0-0.3 Automated blood basophil count (count/volume) 0.0 10*3/uL 0.0-0.1 Activated partial thromboplastin time (aPTT) in platelet poor plasma bycoagulation assay - 03/02/16 05:40 Activated partial thromboplastin time (aPTT) in platelet poor plasma bycoagulation assay 62 s 24-35 Whole blood basic metabolic panel - 03/02/16 05:40 Serum or plasma sodium measurement (moles/volume) 140 mmol/L 135-145 Serum or plasma potassium measurement (moles/volume) 3.9 mmol/L 3.6-5.0 Serum or plasma chloride measurement (moles/volume) 111 mmol/L 98-107 Carbon dioxide 20 mmol/L 21-32 Serum or plasma anion gap determination (moles/volume) 9 mmol/L 5-14 Serum or plasma urea nitrogen measurement (mass/volume) 8 mg/dL 7-18 Serum or plasma creatinine measurement (mass/volume) 0.80 mg/dL 0.60-1.30 Serum or plasma urea nitrogen/creatinine mass ratio 10 NRG Serum or plasma creatinine measurement with calculation of estimated glomerular filtration rate > NRG Serum or plasma glucose measurement (mass/volume) 107 mg/dL 70-105 Serum or plasma calcium measurement (mass/volume) 8.5 mg/dL 8.5-10.1 Serum or plasma phosphate measurement (mass/volume) - 03/02/16 05:40 Serum or plasma phosphate measurement (mass/volume) 3.2 mg/dL 2.3-4.7 Magnesium - 03/02/16 05:40 Magnesium 2.1 mg/dL 1.8-2.4 Activated partial thromboplastin time (aPTT) in platelet poor plasma bycoagulation assay - 03/02/16 12:35 Activated partial thromboplastin time (aPTT) in platelet poor plasma bycoagulation assay 89 s 24-35 Activated partial thromboplastin time (aPTT) in platelet poor plasma bycoagulation assay - 03/02/16 19:13 Activated partial thromboplastin time (aPTT) in platelet poor plasma bycoagulation assay 90 s 24-35 Complete blood count (CBC) with automated white blood cell (WBC) differential - 03/03/16 05:40 Blood leukocytes automated count (number/volume) 6.2 10*3/uL 4.3-11.0 Blood erythrocytes automated count (number/volume) 4.24 10*6/uL 4.35-5.85 Venous blood hemoglobin measurement (mass/volume) 14.0 g/dL 13.3-17.7 Blood hematocrit (volume fraction) 41 % 40-54 Automated erythrocyte mean corpuscular volume 97 [foz_us] 80-99 Automated erythrocyte mean corpuscular hemoglobin (mass per erythrocyte) 33 pg 25-34 Automated erythrocyte mean corpuscular hemoglobin concentration measurement (mass/volume) 34 g/dL 32-36 Automated erythrocyte distribution width ratio 14.7 % 10.0- 14.5 Automated blood platelet count (count/volume) 155 10*3/uL 130-400 Automated blood platelet mean volume measurement 9.4 [foz_us] 7.4-10.4 Automated blood neutrophils/100 leukocytes 66 % 42-75 Automated blood lymphocytes/100 leukocytes 26 % 12-44 Blood monocytes/100 leukocytes 7 % 0-12 Automated blood eosinophils/100 leukocytes 1 % 0-10 Automated blood basophils/100 leukocytes 0 % 0-10 Blood neutrophils automated count (number/volume) 4.1 10*3 1.8-7.8 Blood lymphocytes automated count (number/volume) 1.6 10*3 1.0-4.0 Blood monocytes automated count (number/volume) 0.5 10*3 0.0- 1.0 Automated eosinophil count 0.1 10*3/uL 0.0-0.3 Automated blood basophil count (count/volume) 0.0 10*3/uL 0.0-0.1 Activated partial thromboplastin time (aPTT) in platelet poor plasma bycoagulation assay - 03/03/16 05:40 Activated partial thromboplastin time (aPTT) in platelet poor plasma bycoagulation assay 116 s 24-35 Whole blood basic metabolic panel - 03/03/16 05:40 Serum or plasma sodium measurement (moles/volume) 138 mmol/L 135-145 Serum or plasma potassium measurement (moles/volume) 4.0 mmol/L 3.6-5.0 Serum or plasma chloride measurement (moles/volume) 112 mmol/L 98-107 Carbon dioxide 18 mmol/L 21-32 Serum or plasma anion gap determination (moles/volume) 8 mmol/L 5-14 Serum or plasma urea nitrogen measurement (mass/volume) 7 mg/dL 7-18 Serum or plasma creatinine measurement (mass/volume) 0.75 mg/dL 0.60-1.30 Serum or plasma urea nitrogen/creatinine mass ratio 9 NRG Serum or plasma creatinine measurement with calculation of estimated glomerular filtration rate > NRG Serum or plasma glucose measurement (mass/volume) 113 mg/dL 70-105 Serum or plasma calcium measurement (mass/volume) 8.5 mg/dL 8.5-10.1 Serum or plasma phosphate measurement (mass/volume) - 03/03/16 05:40 Serum or plasma phosphate measurement (mass/volume) 3.5 mg/dL 2.3-4.7 Magnesium - 03/03/16 05:40 Magnesium 2.3 mg/dL 1.8-2.4 Activated partial thromboplastin time (aPTT) in platelet poor plasma bycoagulation assay - 03/03/16 12:05 Activated partial thromboplastin time (aPTT) in platelet poor plasma bycoagulation assay 98 s 24-35 Activated partial thromboplastin time (aPTT) in platelet poor plasma bycoagulation assay - 03/03/16 18:50 Activated partial thromboplastin time (aPTT) in platelet poor plasma bycoagulation assay 82 s 24-35 Complete blood count (CBC) with automated white blood cell (WBC) differential - 03/04/16 06:19 Blood leukocytes automated count (number/volume) 7.1 10*3/uL 4.3-11.0 Blood erythrocytes automated count (number/volume) 4.09 10*6/uL 4.35-5.85 Venous blood hemoglobin measurement (mass/volume) 13.7 g/dL 13.3-17.7 Blood hematocrit (volume fraction) 40 % 40-54 Automated erythrocyte mean corpuscular volume 98 [foz_us] 80-99 Automated erythrocyte mean corpuscular hemoglobin (mass per erythrocyte) 34 pg 25-34 Automated erythrocyte mean corpuscular hemoglobin concentration measurement (mass/volume) 34 g/dL 32-36 Automated erythrocyte distribution width ratio 14.7 % 10.0- 14.5 Automated blood platelet count (count/volume) 151 10*3/uL 130-400 Automated blood platelet mean volume measurement 9.6 [foz_us] 7.4-10.4 Automated blood neutrophils/100 leukocytes 60 % 42-75 Automated blood lymphocytes/100 leukocytes 28 % 12-44 Blood monocytes/100 leukocytes 9 % 0-12 Automated blood eosinophils/100 leukocytes 2 % 0-10 Automated blood basophils/100 leukocytes 0 % 0-10 Blood neutrophils automated count (number/volume) 4.3 10*3 1.8-7.8 Blood lymphocytes automated count (number/volume) 2.0 10*3 1.0-4.0 Blood monocytes automated count (number/volume) 0.7 10*3 0.0- 1.0 Automated eosinophil count 0.2 10*3/uL 0.0-0.3 Automated blood basophil count (count/volume) 0.0 10*3/uL 0.0-0.1 Activated partial thromboplastin time (aPTT) in platelet poor plasma bycoagulation assay - 03/04/16 06:19 Activated partial thromboplastin time (aPTT) in platelet poor plasma bycoagulation assay 101 s 24-35 Whole blood basic metabolic panel - 03/04/16 06:19 Serum or plasma sodium measurement (moles/volume) 138 mmol/L 135-145 Serum or plasma potassium measurement (moles/volume) 3.8 mmol/L 3.6-5.0 Serum or plasma chloride measurement (moles/volume) 110 mmol/L 98-107 Carbon dioxide 19 mmol/L 21-32 Serum or plasma anion gap determination (moles/volume) 9 mmol/L 5-14 Serum or plasma urea nitrogen measurement (mass/volume) 7 mg/dL 7-18 Serum or plasma creatinine measurement (mass/volume) 0.69 mg/dL 0.60-1.30 Serum or plasma urea nitrogen/creatinine mass ratio 10 NRG Serum or plasma creatinine measurement with calculation of estimated glomerular filtration rate > NRG Serum or plasma glucose measurement (mass/volume) 107 mg/dL 70-105 Serum or plasma calcium measurement (mass/volume) 8.5 mg/dL 8.5-10.1 Serum or plasma phosphate measurement (mass/volume) - 03/04/16 06:19 Serum or plasma phosphate measurement (mass/volume) 3.7 mg/dL 2.3-4.7 Magnesium - 03/04/16 06:19 Magnesium 2.3 mg/dL 1.8-2.4 Encounters ACCT No. Visit Date/Time Discharge Status Pt. Type Provider Facility Loc./Unit Complaint [id number] 10/29/2017 12:38:00 10/29/2017 23:59:59 CLS Outpatient GLENDA COPPOLA, INGRID [place] [facility] SDC ANEMIA [id number] 02/27/2016 12:11:00 03/04/2016 12:09:00 DIS Inpatient INGRID DOSHI MD [facility] 4TH BILATERAL PULMONARY EMBOLISM [id number] 02/19/2016 09:47:00 02/19/2016 11:12:00 DIS Emergency INDERJIT DELGADO DIRECTOR TECHNICAL [facility] ER COLD SYMPTOMS [id number] 09/19/2015 09:43:00 09/19/2015 12:50:00 DIS [facility] [id number] 09/14/2015 06:33:00 09/14/2015 15:34:00 DIS Outpatient SUMMER SUTTON DO [facility] PREOP BLOOD IN STOOL [id number] 12/26/2014 10:10:00 12/26/2014 23:59:59 CLS Outpatient ZAIN GONZALES [facility] ONC [id number] 12/12/2014 10:56:00 12/12/2014 23:59:59 CLS Outpatient NITA SCHROEDER [facility] ONC [id number] 10/24/2014 09:12:00 11/23/2014 00:01:00 DIS Outpatient NITA SCHROEDER [facility] ONC [id number] 11/10/2014 20:45:00 11/13/2014 09:00:00 DIS Inpatient JUSTIN MORTON DO [facility] SURGICAL SMALL BOWEL OBSTRUCTION [id number] 06/16/2014 22:06:00 06/16/2014 23:53:00 DIS Emergency SHAWNA OLIVIER DO [facility] ER HUMAN BITE, L LEG BRUISING [id number] 03/01/2014 07:34:00 03/01/2014 23:59:59 CLS Outpatient MARYCRUZ ELMORE MD [facility] RAD ABDOMINAL ASCITIES [id number] 02/28/2014 09:51:00 02/28/2014 23:59:59 CLS Outpatient MARYCRUZ ELMORE MD [facility] LAB ABD WOUND ACITIES [id number] 02/23/2014 17:36:00 02/23/2014 19:27:00 DIS Emergency HERMELINDA MEJIAS DO [facility] ER POST OP SITE EVAL [id number] 02/12/2014 15:26:00 02/12/2014 15:52:00 DIS Emergency ELDON MCQUEEN MD [facility] ER WOUND CHECK [id number] 01/21/2014 14:02:00 01/21/2014 15:05:00 DIS Emergency SANDYINDERJIT APRN [facility] ER BLISTER ON SURGICAL SITE [id number] 12/27/2013 08:44:00 12/27/2013 23:59:59 CLS Outpatient MARYCRUZ ELMORE MD [facility] LAB PULMONARY EMBOLISM [id number] 12/23/2013 10:52:00 12/23/2013 23:59:59 CLS Outpatient MARYCRUZ ELMORE MD [facility] LAB PULM [id number] 12/17/2013 12:15:00 12/22/2013 17:55:00 DIS Inpatient MARYCRUZ ELMORE MD [facility] SURGICAL STRICTURE [id number] 12/14/2013 11:06:00 12/14/2013 23:59:59 CLS Outpatient MARYCRUZ ELMORE MD [facility] PREOP STRICTURE [id number] 12/14/2013 07:35:00 12/14/2013 23:59:59 CLS Outpatient ALYSON COPPOLA FACC, SHAKEEL CHONG CCDS [facility] CARD CP [id number] 12/08/2013 10:20:00 12/08/2013 23:59:59 CLS Outpatient MARYCRUZ ELMORE MD [facility] RAD COLON RESECTION [id number] 12/01/2013 09:00:00 12/08/2013 12:22:00 DIS Outpatient MARYCRUZ ELMORE MD [facility] WOUNDCARE STOMA [id number] 11/11/2013 08:17:00 11/18/2013 14:36:00 DIS Outpatient BRYCE FORD MD [facility] REHAB S/P HEMICOLECTOMY W/LUMBAR PAIN/DECONDITIONING [id number] 11/11/2013 14:00:00 11/11/2013 23:59:59 CLS Outpatient BRYCE FORD MD [facility] ANTICOAG THERAPY [id number] 11/09/2013 08:06:00 11/09/2013 23:59:59 CLS Outpatient BRYCE FORD MD [facility] SEIZURES [id number] 11/04/2013 12:30:00 11/04/2013 23:59:59 CLS Outpatient BRYCE FORD MD [facility] ANTICOAG THERAPY, PULMONARY EMBOLISM [id number] 11/02/2013 12:00:00 11/02/2013 23:59:59 CLS Outpatient BRYCE FORD MD [facility] ANTICOAG THERAPY, DILANTIN THERAPY, SEIZURES [id number] 10/28/2013 08:30:00 10/28/2013 23:59:59 CLS Outpatient BRYCE FORD MD [facility] SEIZURES, ANTICOAG THERAPY [id number] 10/21/2013 11:46:00 10/21/2013 23:59:59 CLS Outpatient MARYCRUZ ELMORE MD [facility] LAB HYPOKALMIC [id number] 09/29/2013 08:23:00 10/20/2013 13:29:00 DIS Outpatient BRYCE FORD MD [facility] REHAB CHRONIC LBP [id number] 10/17/2013 13:49:00 10/17/2013 16:00:00 DIS Emergency REYNALDO GREGORY MD [facility] ER POST SURG REDNESS AROUND PERCY [id number] 10/06/2013 10:00:00 10/13/2013 10:55:00 DIS Inpatient MARYCRUZ ELMORE MD [facility] SURGICAL DIVERTICULITIS [id number] 09/29/2013 12:04:00 09/29/2013 23:59:59 CLS Outpatient MARYCRUZ ELMORE MD [facility] PREOP DIVERTICULITIS [id number] 08/31/2013 07:34:00 08/31/2013 23:59:59 CLS Outpatient MARYCRUZ ELMORE MD [facility] RAD DIVERTICULITIS [id number] 08/16/2013 07:09:00 08/16/2013 10:15:00 DIS Outpatient MARYCRUZ ELMORE MD [facility] SDC ABN CT SCAN [id number] 08/11/2013 07:20:00 08/11/2013 23:59:59 CLS Outpatient MARYCRUZ ELMORE MD [facility] PREOP ABNORMAL CT SCAN [id number] 08/02/2013 09:43:00 08/02/2013 23:59:59 CLS Outpatient MARYCRUZ ELMORE MD [facility] RAD SIGMOID DIVERT ABCESS [id number] 07/23/2013 08:59:00 07/23/2013 23:59:59 CLS Outpatient MARYCRUZ ELMORE MD [facility] RAD SIGMOID DIVERTICULOSIS [id number] 01/16/2013 10:45:00 01/16/2013 23:59:59 CLS Outpatient MARCELO ZAYAS APRN [facility] LAB SEIZURE D/O [id number] 12/10/2012 11:47:00 12/10/2012 23:59:59 CLS Outpatient DEEPALI MOTA UNHAIRER [facility] RAD R ANKLE PAIN,R ANKLE EDEMA [id number] 09/04/2018 14:17:00 ACT Outpatient JANE OKEEFE DIRECTOR TECHNICAL [facility] RAD LEFT LEG PAIN, SWELLING, HX OF DVT [id number] 12/12/2014 16:53:00 Document Registration [id number] 10/15/2013 10:35:00 Document Registration [id number] 01/12/2012 17:56:00 Document Registration [id number] 01/10/2012 08:43:00 Document Registration [id number] 12/02/2011 13:02:00 Document Registration [id number] 06/05/2011 06:39:00 Document Registration [id number] 03/29/2011 10:28:00 Document Registration [id number] 01/16/2011 07:16:00 Document Registration [id number] 06/27/2010 09:08:00 Document Registration [id number] 12/01/2009 10:42:00 Document Registration [id number] 11/10/2014 19:14:43 ACT Document Registration
--- NOTE | 2018-09-06 06:51 | ED Lower Extremity ---
General Chief Complaint: Lower Extremity Stated Complaint: CANT WALK Source: patient, family Exam Limitations: no limitations History of Present Illness Date Seen by Provider: Sep 06, 2018 Time Seen by Provider: 06:48 Initial Comments This 58-year-old white male presents with a complaint of pain in his left knee and inability walk secondary to same. Patient has had a history of severe disc disease of his low back requiring surgery in the past. [facility] and knee pain. Allergies and Home Medications Allergies Coded Allergies: No Known Drug Allergies (Verified , 12/23/06) Home Medications Albuterol Sulfate 18 Gm Hfa.aer.ad, 1 PUFF IH Q4H PRN for SHORTNESS OF BREATH, (Reported) Aspirin 325 Mg Tablet.dr, 325 MG PO HS, (Reported) Azithromycin 250 Mg Tablet, 250 MG PO DAILY Prescribed by: INGRID DOSHI on 03/04/16957 Budesonide/Formoterol Fumarate 10.2 Gm Hfa.aer.ad, 1 PUFF IH BID, (Reported) D-Methorphan Hb/P-Epd HCl/Bpm 118 Ml Syrup, 5 ML PO Q4H PRN for CONGESTION Prescribed by: INDERJIT DELGADO on 02/19/16 1102 Lactobacillus Combo No.11 1 Each Cap.sprink, 1 CAP PO BID, (Reported) Metoprolol Succinate 25 Mg Tab.er.24h, 25 MG PO DAILY Prescribed by: INGRID DOSHI on 03/04/16957 Pantoprazole Sodium 40 Mg Tablet.dr, 40 MG PO BID@ Prescribed by: INGRID DOSHI on 03/04/16957 Phenytoin Sodium Extended 300 Mg Capsule, 300 MG PO HS, (Reported) TAKES WITH 2 (200 MG) CAPS TO EQUAL 700MG TOTAL DOSE Phenytoin Sodium Extended 200 Mg Capsule, 400 MG PO HS, (Reported) TAKES 2 (200MG) CAPSULES ALONG WITH A 300MG FOR A TOTAL DAILY DOSE OF 700MG Rivaroxaban 1 Each Tab.ds.pk, 1 EACH PO UD 15mg by mouth twice daily x 21 days then 20mg by mouth daily Prescribed by: INGRID DOSHI on 03/04/16957 Patient Home Medication List Home Medication List Reviewed: Yes Review of Systems Constitutional: no symptoms reported; No chills EENTM: no symptoms reported Respiratory: no symptoms reported; No cough Cardiovascular: No no symptoms reported, No chest pain Gastrointestinal: No abdominal pain, No diarrhea, No nausea Genitourinary: No dysuria, No frequency Musculoskeletal: see HPI; No back pain, No joint pain (left knee. Pain is made worse with flexion and extension.) Skin: no symptoms reported Psychiatric/Neurological: No Symptoms Reported Past Vsozzrs-Bqltbr-Otcfjw Hx Past Med/Social Hx: Reviewed Nursing Past Med/Soc Hx Patient Social History 2nd Hand Smoke Exposure: No Recent Foreign Travel: No Contact w/Someone Who Travel: No Recent Hopitalizations: Yes (, FISTULA REPAIR) Immunizations Up To Date Tetanus Booster (TDap): More than 5yrs Date of Pneumonia Vaccine: Nov 24, 2008 Date of Influenza Vaccine: Feb 22, 2014 Seasonal Allergies Seasonal Allergies: Yes Past Medical History Surgeries: Yes (BOWEL RESECT/COLOSTOMY/REVERSAL,VENTRAL HERNIA, BACK,TENDON/HAND REPAIR ) Abdominal, Bowel Surgery, Orthopedic Respiratory: Yes Pulmonary Embolism Currently Using CPAP: No Currently Using BIPAP: No Cardiac: Yes Deep Vein Thrombosis, Hypertension Neurological: Yes (NO SEIZURE FOR SEVERAL YEARS BUT TAKES MEDICINE) Seizure Disorder Reproductive Disorders: No Kidney Stones Gastrointestinal: Yes (COLON RESECTION/ILEOSTOMY/REVERSAL. CHRONIC ABDOMINAL WOUND) Diverticulosis Musculoskeletal: Yes (ARTHRITIS IN FEET AND BACK) Arthritis, Chronic Back Pain Endocrine: Yes (MORBID OBESITY) Cancer: No Psychosocial: Yes Anxiety Integumentary: Yes (CHRONIC POST-OP ABDOMINAL WOUND) Blood Disorders: No Adverse Reaction/Blood Tranf: No Family Medical History Arthritis G8 SISTER Asthma G8 SISTER Colon cancer 19 MOTHER FH: breast cancer 19 MOTHER Heart attack 19 FATHER Hypertension G8 SISTER Psychosocial problem G8 BROTHER (DOWN'S SYNDROME) No Family History of: AIDS Alcoholism Alzheimer's disease Completed stroke Diabetes mellitus Kidney disease Myocardial infarction Parkinson's disease Prostate cancer Respiratory disorder Seizure disorder Thyroid disease Heart Disease, Cancer, Hypertension, Psychiatric Problems Physical Exam Vital Signs Capillary Refill : Height, Weight, BMI Height: 5'11.00" Weight: 327lbs. 1.0oz. 148.821921wx; 44.0 BMI Method:Stated General Appearance: WD/WN, mild distress HEENT: normal ENT inspection Neck: normal inspection Cardiovascular: normal peripheral pulses, regular rate, rhythm Respiratory: chest non-tender, lungs clear Gastrointestinal: normal bowel sounds, non tender Back: normal inspection, no CVA tenderness, no vertebral tenderness Knees: bilateral knee non-tender, bilateral knee normal inspection, bilateral knee normal range of motion; left knee pain (with flexion and extension of the left knee.) Neurologic/Tendon: normal sensation, normal motor functions, normal tendon functions Neurologic/Psychiatric: no motor/sensory deficits, alert, normal mood/affect, oriented x 3 Skin: normal color, warm/dry Progress/Results/Core Measures Results/Orders My Orders Orders - CRYSTAL FAITH MD Knee, Left, 3 Views (09/06/18 06:47) Medications Given in ED Current Medications Medications Dose Ordered Sig/Giles Route Start Time Stop Time Status Last Admin Dose Admin Fentanyl Citrate 50 mcg ONCE ONCE IVP 09/06/18 06:00 09/06/18 06:01 DC 09/06/18 06:51 50 MCG Progress Progress Note : Time: 06:59 Progress Note I reviewed the patient's low back films from earlier this month. There are degenerative changes noted but no evidence of acute fracture. In Patient stated that he was having no low back pain and only was hurting in his left knee. He requested that x-rays of his left knee be obtained. X-ray of his left knee demonstrated mild degenerative changes with no evidence of fracture dislocation. The patient received 50 g of fentanyl IV in the emergency department with moderate improvement in his discomfort. I discharged the patient with Vicodin. I recommended that he follow-up closely with [facility] as his doctor recommended as soon as possible for further evaluation. He was asked to return to the emergency department further problems or questions. Patient was given a walker to assist with weightbearing. Initial ECG Impression Date: Sep 06, 2018 Departure Impression Primary Impression: Left knee pain Qualified Codes: M25.562 - Pain in left knee Additional Impression: Degenerative joint disease (DJD) of lumbar spine Qualified Codes: M47.26 - Other spondylosis with radiculopathy, lumbar region Disposition: 01 HOME, SELF-CARE Condition: Improved Departure-Patient Inst. Decision time for Depature: 07:03 Referrals: INGRID DOSHI MD (PCP/Family) Primary Care Physician SINAN BOWEN MD Patient Instructions: Degenerative Disc Disease (DC) Add. Discharge Instructions: Vicodin for pain. Walker for assisted weightbearing. Follow up with [facility] as soon as possible. Return if any problems or questions All disc harge instructions reviewed with patient and/or family. Voiced understanding. Scripts Hydrocodone/Acetaminophen (Vicodin Es 7.5-300 mg Tablet) 1 Each Tablet 1 EACH PO q6 PRN for PAIN-MILD TO MODERATE for 7 Days, #20 TAB Prov: CRYSTAL FAITH MD 09/06/18 CRYSTAL FAITH MD Sep 06, 2018 06:51
--- NOTE | 2018-09-06 07:00 | NUR ---
TOOK OVER CARE OF PATIENT.
[2018-09-06] MEDS ORDERED: HYDR-3456 PO (07:06)
[2018-09-06 07:55] VITALS: BP 123/73
--- NOTE | 2018-09-06 07:55 | NUR ---
PATIENT DEMONSTRATED WALKING WITH WALKER.
--- NOTE | 2018-09-06 08:00 | Diagnostic Imaging Report ---
INDICATION: Left leg pain. Cannot walk. FINDINGS: Three views of the left knee show no fracture, dislocation or other acute bony abnormality. IMPRESSION: Normal left knee. Dictated by: Dictated on workstation # [id number]
== END 2018-09-06 07:55 | disposition home or self-care (01) ==
LOC: EDUNIT# 05:40 → ER 05:43
DX: M47.896 Other spondylosis, lumbar region (principal); M25.562 Pain in left knee; I10 Essential (primary) hypertension; G40.909 Epilepsy, unspecified, not intractable, without status epilepticus; E66.01 Morbid (severe) obesity due to excess calories; F41.9 Anxiety disorder, unspecified; Z80.3 Family history of malignant neoplasm of breast; Z80.0 Family history of malignant neoplasm of digestive organs; Z87.19 Personal history of other diseases of the digestive system; Z87.442 Personal history of urinary calculi; Z86.718 Personal history of other venous thrombosis and embolism; Z79.82 Long term (current) use of aspirin; Z93.3 Colostomy status; Z86.711 Personal history of pulmonary embolism; Z82.49 Family history of ischemic heart disease and other diseases of the circulatory system; Z68.42 Body mass index [BMI] 45.0-49.9, adult
CPT/HCPCS: 73562; 96374

== ENCOUNTER → 2018-09-14 | Outpatient (CLI) | payer BC ==
[~2018-09-14] MED LIST changes: +HYDR-3456 PO
--- NOTE | 2018-09-14 10:00 | Diagnostic Imaging Report ---
EXAMINATION: Magnetic resonance imaging of the left knee without intravenous contrast DATE: September 14, 2018. COMPARISON: Left knee radiographs September 06, 2018. INDICATION: 58-year-old male, left knee pain for one week. Difficulty walking. TECHNIQUE: Multiplanar, multisequence non contrast enhanced MR imaging was accomplished. FINDINGS: MENISCI: There is a radially oriented tear involving the posterior root of the medial meniscus. There is 3 mm medial meniscal extrusion. There is additional signal in the posterior horn of the medial meniscus not meeting strict MRI criteria for diagnosis of tear. The lateral meniscus is intact. LIGAMENTS AND TENDONS: The anterior and posterior cruciate ligaments are intact. The medial collateral ligament is intact. The iliotibial band, mid third lateral capsular ligament, fibular collateral ligament, biceps femoris tendon and conjoined tendon are intact. The quadriceps tendon and patella ligament are intact. JOINT: There is mild superficial irregularity of the cartilage of the median patellar ridge and lateral patellar facet. The medial and lateral compartment cartilage is grossly intact. There is no knee joint effusion, prominent synovitis, or intra-articular body. BONE: There is unremarkable bone marrow signal. Specifically, negative for fracture, osteomyelitis, osteonecrosis, or marrow replacing process. BURSAE AND SOFT TISSUES: There is a Allison's cyst. There is nonspecific prepatellar subcutaneous edema. IMPRESSION: 1. Radially oriented tear involving the posterior root of the medial meniscus with 3 mm medial meniscal extrusion. 2. Intact lateral meniscus. 3. Intact anterior and posterior crucial ligaments. Additional ligaments and tendons are intact. 4. Mild patellofemoral compartment osteoarthritis. No knee joint effusion, prominent synovitis, or identified intra-articular body. 5. No acute fracture or bone contusion. 6. Allison's cyst. Dictated by: Dictated on workstation # [id number]
== END ==
LOC: RAD 08:14
PROVIDERS: ATTEND Orthopaedic Surgery
DX: M23.222 Derangement of posterior horn of medial meniscus due to old tear or injury, left knee (principal); M17.12 Unilateral primary osteoarthritis, left knee; M71.22 Synovial cyst of popliteal space [Baker], left knee
CPT/HCPCS: 73721

== ENCOUNTER → 2018-10-29 | Outpatient (CLI) | payer BC ==
[~2018-10-29] MED LIST changes: +ASPI-999 PO; +ATOR10TA66 PO; +CYCL5TAB PO; +RIVA20TA PO
== END ==
LOC: CARD 09:30
PROVIDERS: ATTEND Internal Medicine Cardiovascular Disease
DX: I34.0 Nonrheumatic mitral (valve) insufficiency (principal); I10 Essential (primary) hypertension; E66.9 Obesity, unspecified; I26.99 Other pulmonary embolism without acute cor pulmonale; I27.20 Pulmonary hypertension, unspecified
CPT/HCPCS: 93306

== ENCOUNTER 2018-11-05 15:50 | Outpatient (CLI) | payer BC ==
[~2018-11-05] VITALS: Ht 180.3 cm; Wt 142.0 kg
== END 2018-11-05 15:52 | disposition home or self-care (01) ==
LOC: PREOP 15:50
PROVIDERS: ATTEND Surgery
DX: Z01.818 Encounter for other preprocedural examination (principal)

== ENCOUNTER → 2018-11-19 | Outpatient (CLI) | payer BC ==
[~2018-11-19] VITALS: Ht 180 cm; Wt 148.0 kg
[~2018-11-19] MED LIST changes: +CATHETER FLUSH 10 ML SYR IV PRN; +REGADENOSON 0.4 MG/5 ML SYR (LEXISCAN) IV ONE
[2018-11-19 07:58] VITALS: BP 129/87
[2018-11-19 08:00] VITALS: BP 124/82
--- NOTE | 2018-11-23 16:27 | STRESS TEST ---
DATE OF SERVICE: 11/19/2018 LEXISCAN MYOVIEW STRESS TEST REFERRING PHYSICIAN: Betty Salamanca MD. Baseline heart rate is 69, baseline blood pressure 129/87. Baseline EKG is sinus rhythm with no ischemic changes. In summary, the patient was injected with 10.19 mCi of technetium-99 Myoview and the resting images were obtained. Then, the patient received 0.4 mg of Lexiscan followed by 32.6 mCi of technetium-99 Myoview. Throughout the test, there were no EKG changes. The resting and stress images were reviewed and compared in the short axis, horizontal long axis, and vertical long axis views. Review of the images showed patchy uptake, there is no significant ischemia was noted. SSS is 2, SDS 2, TID value 1.11. On the gated images, the left ventricle appeared to be prominent with preserved contractility. Calculated ejection fraction is 57%. CONCLUSION: 1. The patient tolerated Lexiscan well. 2. Patchy uptake with no significant ischemia or infarction on SPECT images. 3. Normal left ventricular size with normal contractility. Calculated ejection fraction is 57%. Job ID: [id number] DocumentID: [id number] Dictated Date: 11/23/2018 12:07:58 Methods Specialist Engineer Date: 11/23/2018 16:26:13 Dictated By: PATRICIA GREENE MD
== END ==
LOC: CARD 06:32
PROVIDERS: ATTEND Internal Medicine Cardiovascular Disease
DX: I10 Essential (primary) hypertension (principal); I34.0 Nonrheumatic mitral (valve) insufficiency; E66.9 Obesity, unspecified; I26.99 Other pulmonary embolism without acute cor pulmonale; I27.20 Pulmonary hypertension, unspecified; Z80.0 Family history of malignant neoplasm of digestive organs; Z86.010 Personal history of colon polyps
CPT/HCPCS: 78452; 93017

== ENCOUNTER 2019-01-03 10:22 | Emergency (ER) | payer BC ==
[~2019-01-03] VITALS: Ht 180.3 cm; Wt 130.0 kg
[~2019-01-03 10:22] MED LIST changes: -CATHETER FLUSH 10 ML SYR IV PRN; -REGADENOSON 0.4 MG/5 ML SYR (LEXISCAN) IV ONE
--- NOTE | 2019-01-03 11:01 | ED EENT ---
History of Present Illness General Chief Complaint: Eye Problems Stated Complaint: BI LAT EYE WATERING, R EYE BLURRY Nursing Triage Note: pt amb to triage with complaint of watery eyes. states last night he noticed that he had blurred vision in right eye. was sent from [facility] to rule out blood cot in eye. Source: patient Exam Limitations: no limitations History of Present Illness Date Seen by Provider: Jan 03, 2019 Time Seen by Provider: 10:59 Initial Comments To ER with bilateral eye watering for about 2 weeks since visiting his brother who also had some watery eyes at the time. He denies runny nose cough or sore throat. Beginning last night he closed his left eye and tried to look out of his right eye and noticed he can identify his mother shape but no details about her which is unusual. He went to [facility] who mentioned that he may have a "clot in his eye" he states and was referred here. He is on xarelto for history of pulmonary embolism in 2016. Timing/Duration: abrupt Severity: moderate Location: eye (R) Associated Symptoms: denies symptoms Allergies and Home Medications Allergies Coded Allergies: No Known Drug Allergies (Verified , 12/23/06) Home Medications Aspirin 81 Mg Tab.chew, 81 MG PO DAILY, (Reported) Atorvastatin Calcium 10 Mg Tablet, 10 MG PO HS, (Reported) Cyclobenzaprine HCl 5 Mg Tablet, 5 MG PO TID PRN for MUSCLE SPASMS, (Reported) Lactobacillus Combo No.11 1 Each Cap.sprink, 1 CAP PO BID, (Reported) Metoprolol Succinate 25 Mg Tab.er.24h, 37.5 MG PO DAILY, (Reported) take 1 1/2 of 25mg tab Pantoprazole Sodium 40 Mg Tablet.dr, 40 MG PO BID, (Reported) Phenytoin Sodium Extended 300 Mg Capsule, 300 MG PO HS, (Reported) TAKES WITH 2 (200 MG) CAPS TO EQUAL 700MG TOTAL DOSE Phenytoin Sodium Extended 200 Mg Capsule, 400 MG PO HS, (Reported) TAKES 2 (200MG) CAPSULES ALONG WITH A 300MG FOR A TOTAL DAILY DOSE OF 700MG Rivaroxaban 20 Mg Tablet, 20 MG PO DAILY, (Reported) Patient Home Medication List Home Medication List Reviewed: Yes Review of Systems Review of Systems Constitutional: see HPI Eyes: See HPI, Blurred Vision (in the right eye only no pain), Drainage, Decreased Acuity Ears: No Symptoms Reported Nose: no symptoms reported Mouth: no symptoms reported Throat: no symptoms reported Respiratory: no symptoms reported Cardiovascular: no symptoms reported Past Brmqwqj-Anjuil-Hqnrcj Hx Patient Social History Alcohol Use: Denies Use Recreational Drug Use: No Smoking Status: Never a Smoker 2nd Hand Smoke Exposure: No Recent Foreign Travel: No Contact w/Someone Who Travel: No Recent Infectious Disease Expo: No Recent Hopitalizations: No Physical Abuse: No Sexual Abuse: No Mistreated: No Fear: No Immunizations Up To Date Tetanus Booster (TDap): More than 5yrs Date of Pneumonia Vaccine: Nov 24, 2008 Date of Influenza Vaccine: Feb 22, 2014 Seasonal Allergies Seasonal Allergies: Yes Past Medical History Surgeries: Yes (BOWEL RESECT/COLOSTOMY/REVERSAL,VENTRAL HERNIA, BACK,TENDON/HAND REPAIR ) Abdominal, Bowel Surgery, Orthopedic Respiratory: Yes Pulmonary Embolism Currently Using CPAP: No Currently Using BIPAP: No Cardiac: Yes Deep Vein Thrombosis, Hypertension Neurological: Yes (NO SEIZURE FOR SEVERAL YEARS BUT TAKES MEDICINE) Seizure Disorder Reproductive Disorders: No Sexually Transmitted Disease: No HIV/AIDS: No Genitourinary: Yes Kidney Stones Gastrointestinal: Yes (COLON RESECTION/ILEOSTOMY/REVERSAL. CHRONIC ABDOMINAL WOUND) Diverticulosis Musculoskeletal: Yes (ARTHRITIS IN FEET AND BACK) Arthritis, Chronic Back Pain Endocrine: Yes (MORBID OBESITY) HEENT: No Cancer: No Psychosocial: Yes Anxiety Integumentary: No Blood Disorders: No Adverse Reaction/Blood Tranf: No Family Medical History Arthritis G8 SISTER Asthma G8 SISTER Colon cancer 19 MOTHER FH: breast cancer 19 MOTHER Heart attack 19 FATHER Hypertension G8 SISTER Psychosocial problem G8 BROTHER (DOWN'S SYNDROME) No Family History of: AIDS Alcoholism Alzheimer's disease Completed stroke Diabetes mellitus Kidney disease Myocardial infarction Parkinson's disease Prostate cancer Respiratory disorder Seizure disorder Thyroid disease Heart Disease, Cancer, Hypertension, Psychiatric Problems Physical Exam Vital Signs Vital Signs - First Documented 01/03/19 10:41 Temp 36.7 Pulse 67 Resp 16 B/P (MAP) 139/87 (104) Pulse Ox 98 O2 Delivery Room Air Height, Weight, BMI Height: 5'11.00" Weight: 313lbs. 0.0oz. 141.713044qd; 39.00 BMI Method:Stated General Appearance: WD/WN, no apparent distress Eyes: bilateral eye normal inspection, bilateral eye PERRL, bilateral eye EOMI (no hyphema no grossly apparent cataract) Ears: bilateral ear auricle normal, bilateral ear canal normal, bilateral ear TM normal Neck: non-tender, full range of motion Neurologic/Psychiatric: alert, normal mood/affect, oriented x 3 Skin: normal color, warm/dry Progress/Results/Core Measures Results/Orders Lab Results Laboratory Tests Test 01/03/19 11:50 Range/Units White Blood Count 4.9 4.3-11.0 10^3/uL Red Blood Count 4.90 4.35-5.85 10^6/uL Hemoglobin 15.8 13.3-17.7 G/DL Hematocrit 46 40-54 % Mean Corpuscular Volume 95 80-99 FL Mean Corpuscular Hemoglobin 32 25-34 PG Mean Corpuscular Hemoglobin Concent 34 32-36 G/DL Red Cell Distribution Width 14.5 10.0-14.5 % Platelet Count 150 130-400 10^3/uL Mean Platelet Volume 10.2 7.4-10.4 FL Neutrophils (%) (Auto) 65 42-75 % Lymphocytes (%) (Auto) 23 12-44 % Monocytes (%) (Auto) 11 0-12 % Eosinophils (%) (Auto) 1 0-10 % Basophils (%) (Auto) 0 0-10 % Neutrophils # (Auto) 3.2 1.8-7.8 X 10^3 Lymphocytes # (Auto) 1.1 1.0-4.0 X 10^3 Monocytes # (Auto) 0.5 0.0-1.0 X 10^3 Eosinophils # (Auto) 0.1 0.0-0.3 10^3/uL Basophils # (Auto) 0.0 0.0-0.1 10^3/uL Sodium Level 143 135-145 MMOL/L Potassium Level 3.7 3.6-5.0 MMOL/L Chloride Level 111 H 98-107 MMOL/L Carbon Dioxide Level 18 L 21-32 MMOL/L Anion Gap 14 5-14 MMOL/L Blood Urea Nitrogen 10 7-18 MG/DL Creatinine 0.71 0.60-1.30 MG/DL Estimat Glomerular Filtration Rate > 60 BUN/Creatinine Ratio 14 Glucose Level 104 70-105 MG/DL Calcium Level 9.5 8.5-10.1 MG/DL My Orders Orders - INDERJIT DELGADO APRN Cbc With Automated Diff (01/03/19 11:08) Basic Metabolic Panel (01/03/19 11:08) Erythrocyte Sedimentation Rate (01/03/19 11:08) Vital Signs/I&O 01/03/19 10:41 Temp 36.7 Pulse 67 Resp 16 B/P (MAP) 139/87 (104) Pulse Ox 98 O2 Delivery Room Air Blood Pressure Mean: 104 POS Departure Communication (Admissions) Spoke with Dr. Dubon , he will dilate the eye and evaluate at his clinic here in [place] at 4 PM today. Vision in the left eye is 20/40, right eye, he cannot even see the "E" on the eye chart but states "I can see there is a chart that I can't read anything on it" Impression Primary Impression: Visual loss, right eye Disposition: 01 HOME, SELF-CARE Condition: Stable Departure-Patient Inst. Decision time for Depature: 12:41 Referrals: INGRID DOSHI MD (PCP/Family) Primary Care Physician JAZMIN DUBON OD Patient Instructions: NO INSTRUCTIONS GIVEN Add. Discharge Instructions: 1. Meet Dr. Dubon at his clinic in [place] at 4 PM today. He will dilate your eye and take a better look at it. All discharge instructions reviewed with patient and/or family. Voiced understanding. Copy Copies To 1: JAZMIN DUBON OD, PETER J APRN Jan 03, 2019 11:01 POS
[2019-01-03 11:58] LABS: BASOPHILS % (AUTO) 0 % (0-10); EOSINOPHILS # (AUTO) 0.1 10^3/uL (0.0-0.3); EOSINOPHILS % (AUTO) 1 % (0-10); HEMATOCRIT 46 % (40-54); HEMOGLOBIN 15.8 G/DL (13.3-17.7); LYMPHOCYTES # (AUTO) 1.1 X 10^3 (1.0-4.0); LYMPHOCYTES % (AUTO) 23 % (12-44); MEAN CORPUSCULAR HEMOGLOBIN 32 PG (25-34); MEAN CORPUSCULAR HGB CONC 34 G/DL (32-36); MEAN CORPUSCULAR VOLUME 95 FL (80-99); MEAN PLATELET VOLUME 10.2 FL (7.4-10.4); MONOCYTES # (AUTO) 0.5 X 10^3 (0.0-1.0); MONOCYTES % (AUTO) 11 % (0-12); NEUTROPHILS # (AUTO) 3.2 X 10^3 (1.8-7.8); NEUTROPHILS % (AUTO) 65 % (42-75); PLATELET COUNT 150 10^3/uL (130-400); RED CELL DISTRIBUTION WIDTH 14.5 % (10.0-14.5); WHITE BLOOD COUNT 4.9 10^3/uL (4.3-11.0)
[2019-01-03 12:14] LABS: BUN/CREATININE RATIO 14; CALCIUM 9.5 MG/DL (8.5-10.1); CARBON DIOXIDE 18 MMOL/L (21-32); CHLORIDE 111 MMOL/L (98-107); CREATININE SERUM 0.71 MG/DL (0.60-1.30); GFR ESTIMATED > 60; GLUCOSE 104 MG/DL (70-105); POTASSIUM 3.7 MMOL/L (3.6-5.0); SODIUM 143 MMOL/L (135-145)
[2019-01-03 12:49] VITALS: BP 139/87
== END 2019-01-03 12:49 | disposition home or self-care (01) ==
LOC: EDUNIT# 10:22 → ER 10:24
DX: H54.7 Unspecified visual loss (principal); I10 Essential (primary) hypertension; G40.909 Epilepsy, unspecified, not intractable, without status epilepticus; E66.01 Morbid (severe) obesity due to excess calories; F41.9 Anxiety disorder, unspecified; Z80.3 Family history of malignant neoplasm of breast; Z79.01 Long term (current) use of anticoagulants; Z86.711 Personal history of pulmonary embolism; Z79.82 Long term (current) use of aspirin; Z93.3 Colostomy status; Z86.718 Personal history of other venous thrombosis and embolism; Z82.49 Family history of ischemic heart disease and other diseases of the circulatory system; Z68.41 Body mass index [BMI] 40.0-44.9, adult
CPT/HCPCS: 36415; 80048; 85025

== ENCOUNTER 2019-01-28 05:30 | Outpatient (CLI) | payer BC | END 2019-01-28 15:04 | disposition home or self-care (01) | LOC: PREOP 05:30 | PROVIDERS: ATTEND Specialist | DX: Z01.818 Encounter for other preprocedural examination (principal) ==

== ENCOUNTER 2019-01-29 10:36 | Day surgery (SDC) | payer BC ==
[~2019-01-29] VITALS: Ht 180 cm; Wt 130.0 kg
[~2019-01-29 10:36] MED LIST changes: -HYDR-3456 PO; +HYDR-3457 PO; -METO-387 PO; +MTP25TSR PO
[2019-01-29] MEDS ORDERED: LIDOCAINE PF 1% 2 ML AMP IR PRN (11:00)
[2019-01-29] MEDS ORDERED: POVIDONE (BETADINE) OPHTH SOLN 5% 30 ML OP ONE (11:00)
[2019-01-29] MEDS ORDERED: TIMOLOL MALEATE 0.5% 5 ML (TIMOPTIC) BTL OU PRN (11:00)
[2019-01-29] MEDS ORDERED: MOXIFLOXACIN OPHTH SOLN 5 MG/ML 0.3 ML SYRINGE OP ONE (11:00)
[2019-01-29] MEDS: TETRACAINE 0.5% OPHTH SOLN 4 ML BTL (SINGLE DOSE ONLY) OU PRN ×4 (11:01→11:29)
[2019-01-29 11:10] VITALS: BP 139/85
[2019-01-29] MEDS: CYCLOPENTOLATE 1% (CYCLOGYL) 2 ML DROPS OP SCH ×3 (11:19→11:29)
[2019-01-29] MEDS: PHENYLEPHRINE 10% OPHTH (NEO-SYN) 5 ML BTL OU SCH ×3 (11:19→11:29)
--- NOTE | 2019-01-29 11:55 | Ophthalmologist Pre-Op Note ---
Pre-Operative Progress Note H&P Reviewed The H&P was reviewed, patient examined and no changes noted. Date H&P Reviewed: Jan 29, 2019 Time H&P Reviewed: 11:55 Pre-Op Dx Cataract, Right Eye FAUZIA WALKER MD Jan 29, 2019 11:55 POS
[2019-01-29] MEDS ORDERED: MIDAZOLAM 2 MG/2 ML (VERSED) VIAL ONE (11:59)
[2019-01-29] MEDS ORDERED: acetaZOLAMIDE ER 500 MG CAP (DIAMOX SEQUELS) PO ONE (12:00)
--- NOTE | 2019-01-29 12:18 | Ophthalmology Operative Report ---
Cataract removal/placement IOL PREOPERATIVE DIAGNOSIS: Cataract Right Eye POSTOPERATIVE DIAGNOSIS: Cataract Right Eye PROCEDURE: Cataract removal and placement of posterior chamber implant, right eye SURGEON: Leonides Walker ANESTHESIA: Topical with sedation COMPLICATIONS: None ESTIMATED BLOOD LOSS: Minimal DESCRIPTION OF PROCEDURE: After proper informed consent was obtained, the patient, a 58 male, was taken to the Operating Room and the right eye was anesthetized with tetracaine. The right eye was then prepped and draped in the usual manner. A wire lid speculum was placed. A paracentesis was made at the left hand position. Preservative free lidocaine was injected into the anterior chamber followed by viscoelastic. A clear corneal incision was made in the temporal position. A capsulorrhexis was preformed and the central nuclear and cortical material were removed. The posterior capsule was polished and Ish 12.0 AU00T0 IOL was placed into the capsular bag. The residual viscoelastic was aspirated and balanced saline solution was injected into the anterior chamber. Moxifloxacin was injected into the anterior chamber. The wound was checked and found to be water tight. The patient tolerated the procedure well without complications. LEONIDES WALKER MD Jan 29, 2019 12:18 POS
--- NOTE | 2019-01-29 12:25 | Anesthesia-General Post-Op ---
MAC Patient Condition Mental Status/LOC: Same as Preop Cardiovascular: Satisfactory Nausea/Vomiting: Absent Respiratory: Satisfactory Pain: Controlled Complications: Absent Post Op Complications Complications None Follow Up Care/Instructions Patient Instructions None needed. Anesthesiology Discharge Order Discharge Order Patient is doing well, no complaints, stable vital signs, no apparent adverse anesthesia problems. No complications reported per nursing. CLAUDIA MURO CRNA Jan 29, 2019 12:25 POS
[2019-01-29 12:30] VITALS: BP 119/69
--- OUTSIDE RECORDS SUMMARY | 2019-02-24 14:58 | XMS REPORT | Continuity of Care Document ---
Author Organization Unknown Address Unknown Phone Unavailable Allergies Active Description Code Type Severity Reaction Onset Reported/Identified Relationship to Patient Clinical Status Yes No Known Drug Allergies [id number] Drug Allergy Unknown N/A 12/23/2006 Medications There is no data. Problems Date Dx Coded Attending Type Code Diagnosis Diagnosed By 12/01/2009 Ot 724.4 12/01/2009 Ot V57.1 03/29/2011 Ot 724.2 LUMBAGO 03/29/2011 Ot V57.1 PHYS ICAL THERAPY NEC 12/02/2011 Ot 466.0 ACUT E BRONCHITIS 12/02/[address] PAIN NOS 12/02/[address] PAIN NEC 01/10/2012 Ot 553.20 MOLLY TRAL HERNIA NOS 01/13/2012 Ot 560.1 PARA LYTIC ILEUS 01/13/2012 Ot 787.02 CHELITA SEA ALONE 01/13/2012 Ot 997.49 OTH ER DIGESTIVE SYSTEM COMPLICATIONS 08/16/2013 RAMÍREZ COPPOLA, MARYCRUZ Spicer Ot 211.3 BENIGN NEOPLASM LG BOWEL 08/16/2013 MARYCRUZ ELMORE MD Ot 562.10 DIVERTICULOSIS COLON (W/O MENT OF HEMORR 08/16/2013 MARYCRUZ ELMORE MD Ot V16.0 FAMILY HX-GI MALIGNANCY 10/13/2013 MARYCRUZ ELMORE MD Ot 345.90 EPILEPSY UNSPEC W/O MENTION INTRACTABLE 10/13/2013 MARYCRUZ ELMORE MD Ot 401.9 HYPERTENSION NOS 10/13/2013 MARYCRUZ ELMORE MD Ot 49 6 CHR AIRWAY OBSTRUCT NEC 10/13/2013 MARYCRUZ ELMORE [...] Mallory Ot 338.29 OTHER CHRONIC PAIN 10/20/2013 LILIANA COPPOLA, BRYCE L Ot 724.2 LUMBAGO 10/20/2013 BRYCE FORD MD Ot V57.1 PHYSICAL THERAPY NEC 11/18/2013 BRYCE FORD MD Ot 724.2 LUMBAGO 11/18/2013 BRYCE FORD MD [...] DISRUPTION OF EXTERNAL OPERATION (SURGIC 02/12/2014 CHARISSE COPPLOA, ELDON Weinberg Ot 998.59 OTH POSTOPER INFECTION 02/23/2014 HERMELINDA MEJIAS DO Ot V58.31 ENCOUNTER FOR CHANGE OR REMOVAL OF SURGI 03/24/2014 MARYCRUZ ELMORE MD Ot 789.59 03/24/2014 RAMÍREZ COPPOLA, MARYCRUZ Spicer Ot 789.59 06/16/2014 SHAWNA OLIVIER DO Ot [...] BITE 06/16/2014 SHAWNA OLIVIER DO Ot V06.1 [id number], COMBINED [ 06/17/2014 Ot 429.3 06/17/2014 Ot 786.2 06/17/2014 Ot 724.4 06/17/2014 Ot 715.97 06/17/2014 Ot 729.5 06/17/2014 DEEPALI MOTA FILE CLERK Ot 719. 07 06/17/2014 DEEPALI MOTA FILE CLERK Ot 719. 47 06/17/2014 MARCELO ZAYAS APRN Ot 345.90 06/17/2014 [...] 06/17/2014 Ot 715.97 06/17/2014 Ot 729.5 06/17/2014 MOTADEEPALI FILE CLERK Ot 719. 07 06/17/2014 SVETLANADEEPALI FILE CLERK Ot 719. 47 06/17/2014 MARCELO ZAYAS APRN Ot 345.90 06/17/2014 RAMÍREZ COPPOLA, MARYCRUZ M [...] M Ot 789.59 06/24/2014 CHARLINE DO, SHAWNA D Ot 881.00 06/24/2014 CHARLINE DO, SHAWNA D Ot 924.10 06/24/2014 CHARLINE DO, SHAWNA D Ot E000.0 06/24/2014 CHARLINE DO, SHAWNA D Ot E849.7 06/24/2014 CHARLINE DO, SHAWNA D Ot E888.9 06/24/2014 CHARLINE DO, SHAWNA D Ot E928.3 06/24/2014 CHARLINE DO SHAWNA D Ot V06.1 06/24/2014 CHARLINE DO, SHAWNA [...] 10/24/2014 Ot 729.5 10/24/2014 DEEPALI MOTA S FILE CLERK Ot 719. 07 10/24/2014 DEEPALI MOTA S FILE CLERK Ot 719. 47 10/24/2014 MARCELO ZAYAS APRN Ot 345.90 10/24/2014 RAMÍREZ COPPOLA, MARYCRUZ M Ot 562.11 10/24/2014 RAMÍREZ COPPOLA, MARYCRUZ M Ot 255.8 10/24/2014 RAMÍREZ COPPOLA, MARYCRUZ M Ot 553.1 10/24/2014 RAMÍREZ COPPOLA, MARYCRUZ M Ot 562.11 10/24/2014 RAMÍREZ COPPOLA, MARYCRUZ M Ot 569.5 10/24/2014 RAMÍREZ COPPOLA, MARYCRUZ M Ot V72.84 10/24/2014 RAMÍREZ [...] 780.39 10/24/2014 LILIANA COPPOLA, BRYCE L Ot V58.69 [...] Spicer Ot 415.19 10/24/2014 RAMÍREZ COPPOLA, MARYCRUZ Spicer Ot 415.19 [...] CHR AIRWAY OBSTRUCT NEC 11/13/2014 SELENE BALL JOSETTEJUAN Ot 560.1 PARALYTIC ILEUS 11/13/2014 SELENE BALL JOSETTEJUAN Ot 560.9 11/13/2014 SELENE BALL JUSTIN Ot V12.51 HX-VENOUS THROMBOSIS EMBOLISM 11/13/2014 SELENE BALL JOSETTEJUAN Ot V12.55 PERSONAL HISTORY OF PULMONARY EMBOLISM 11/13/2014 SELENE BALL JOSETTEJUAN Ot V13.01 PERSONAL HISTORY OF URINARY CALCULI 11/23/2014 NITA SCHROEDER Leandro Ot 289.81 PRIMARY HYPERCOAGULABLE STATE 11/23/2014 ELDANITA Ot V12.55 PERSONAL HISTORY OF PULMONARY EMBOLISM 11/23/2014 ARISTIDES SCHROEDERLANA Reeves Ot V58.61 ANTICOAGULANTS,LT,CURRENT USE 12/09/2014 Ot 429.3 12/09/2014 Ot 786.2 12/09/2014 Ot 724.4 12/09/2014 Ot 715.97 12/09/2014 Ot 729.5 12/09/2014 DEEPALI MOTA FILE CLERK Ot 719. 07 12/09/2014 DEEPALI MOTA FILE CLERK Ot 719. 47 12/09/2014 MARCELO ZAYAS APRN Ot 345.90 12/09/2014 RAMÍREZ COPPOLA, MARYCRUZ Spicer Ot 562.11 12/09/2014 RAMÍREZ COPPOLA, MARYCRUZ Spicer Ot 255.8 12/09/2014 RAMÍREZ COPPOLA, MARYCRUZ Spicer Ot 553.1 12/09/2014 RAMÍREZ COPPOLA, MARYCRUZ Spicer Ot 562.11 12/09/2014 RAMÍREZ COPPOLA, MARYCRUZ Spicer Ot 569.5 12/09/2014 RAMÍREZ COPPOLA, MARYCRUZ Spicer Ot V72.84 12/09/2014 RAMÍREZ COPPOLA, MARYCRUZ Spicer Ot 553.1 12/09/2014 RAMÍREZ COPPOLA, MARYCRUZ Spicer Ot 562.11 12/09/2014 RAMÍREZ COPPOLA, MARYCRUZ Spicer Ot 592.0 12/09/2014 RAMÍREZ COPPOLA, MARYCRUZ Spicer Ot 562.11 12/09/2014 RAMÍREZ COPPOLA, MARYCRUZ Spicer Ot V72.63 12/09/2014 RAMÍREZ COPPOLA, MARYCRUZ M Ot V74.8 12/09/2014 Ot 345.90 12/09/2014 Ot V58.69 12/09/2014 LILIANA COPPOLA, BRYCE L Ot 780.39 12/09/2014 LILIANA COPPOLA, BRYCE L Ot V58.61 12/09/2014 LILIANA COPPOLA, BRYCE L Ot V58.69 12/09/2014 LILIANA COPPOLA, BRYCE L Ot V58.83 12/09/2014 RAMÍREZ COPPOLA, MARYCRUZ M Ot 276.8 12/09/2014 LILIANA COPPOLA, BRYCE L Ot 345.90 12/09/2014 LILIANA COPPOLA, BRYCE L Ot V58.61 [...] Z51.81 12/27/2014 Ot Z79.899 01/11/2015 ZAIN GONZALES FILE CLERK Ot D68.59 01/11/2015 ZAIN GONZALES FILE CLERK Ot Z79.01 01/11/2015 ZAIN GONZALES FILE CLERK Ot Z86.711 09/14/2015 SUMMER SUTTON DO Ot Z01.818 ENCOUNTER FOR OTHER PREPROCEDURAL EXAMIN 09/15/2015 SUMMER SUTTON DO Ot Z01.818 ENCOUNTER FOR OTHER PREPROCEDURAL EXAMIN 09/19/2015 Ot 429.3 CARD IOMEGALY 09/19/2015 Ot 786.2 COUGH 09/19/2015 Ot 724.4 LUMB OSACRAL NEURITIS NOS 09/19/2015 Ot 715.[address] EOARTHROS NOS- ANKLE 09/19/2015 Ot 729.5 PAIN IN LIMB 09/19/2015 DEEPALI MOTA FILE CLERK Ot 719. 07 JOINT EFFUSION-ANKLE 09/19/2015 DEEPALI MOTA FILE CLERK Ot 719. 47 JOINT PAIN-ANKLE 09/19/2015 MARCELO ZAYAS APRN Ot [...] HEMORR 09/19/2015 RAMÍREZ COPPOLA, MARYCRUZ Spicer Ot 569.5 INTESTINAL ABSCESS 09/19/2015 RAMÍREZ COPPOLA, MARYCRUZ Spicer Ot V72.84 EXAM PRE-OPERATIVE NOS 09/19/2015 RAMÍREZ COPPOLA, MARYCRUZ Spicer Ot 553.1 UMBILICAL HERNIA 09/19/2015 RAMÍREZ COPPOLA, MARYCRUZ Spicer Ot 562.11 DIVERTICULITIS COLON (W/O MENT OF HEMORR 09/19/2015 MARYCRUZ ELMORE MD Ot 592.0 CALCULUS OF KIDNEY 09/19/2015 MARYCRUZ ELMORE MD Ot 562.11 DIVERTICULITIS COLON (W/O MENT OF HEMORR 09/19/2015 RAMÍREZ COPPOLA, MARYCRUZ Spicer Ot V72.63 PRE-PROCEDURAL LABORATORY EXAMINATION 09/19/2015 MARYCRUZ ELMORE MD Ot V74.8 SCREEN-BACTERIAL DIS NEC 09/19/2015 Ot 345.90 EPI LEPSY UNSPEC W/O MENTION INTRACTABLE 09/19/2015 Ot V58.69 OTH MED,LT,CURRENT USE 09/19/2015 BRYCE FORD MD Ot 780.39 OTHER CONVULSIONS 09/19/2015 BRYCE FORD MD Ot V58.61 ANTICOAGULANTS,LT,CURRENT USE 09/19/2015 BRYCE FORD MD Ot V58.69 OTH MED,LT,CURRENT USE 09/19/2015 BRYCE FORD MD Ot V58.83 ENCOUNTER FOR THERAPEUTIC DRUG MONITORIN 09/19/2015 MARYCRUZ ELMORE MD Ot 276.8 HYPOPOTASSEMIA 09/19/2015 BRYCE FORD MD [...] MD Ot V58.69 OTH MED,LT,CURRENT USE 09/19/2015 LILIANA COPPOLA, BRYCE Mallory Ot V58.61 ANTICOAGULANTS,LT,CURRENT USE 09/19/2015 LILIANA COPPOLA, BRYCE Mallory Ot V58.83 ENCOUNTER FOR THERAPEUTIC DRUG MONITORIN 09/19/2015 RAMÍREZ COPPOLA, MARYCRUZ Spicer Ot 560.9 INTESTINAL OBSTRUCT NOS 09/19/2015 RAMÍREZ COPPOLA, MARYCRUZ Spicer Ot 560.9 INTESTINAL OBSTRUCT NOS 09/19/2015 RAMÍREZ COPPOLA, MARYCRUZ Spicer Ot V58.69 OTH MED,LT,CURRENT USE 09/19/2015 RAMÍREZ COPPOLA, MARYCRUZ Spicer Ot V72.63 PRE-PROCEDURAL LABORATORY EXAMINATION 09/19/2015 RAMÍREZ COPPOLA, MARYCRUZ Spicer Ot V74.8 SCREEN-BACTERIAL DIS NEC 09/19/2015 ALYSON [...] PULMON EMBOLISM/INFARCT 09/19/2015 MARYCRUZ ELMORE MD Ot 789.59 OTHER ASCITES 09/19/2015 MARYCRUZ ELMORE MD Ot 789.59 OTHER ASCITES 09/19/2015 NITA SCHROEDER Ot D68.59 OTHER PRIMARY THROMBOPHILIA 09/19/2015 NITA SCHROEDER Ot 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 30 DVRTCLOS OF LG INT W/O PERFORATION OR AB 09/19/2015 SUTTON DO, SUMMER D Ot K60. 2 ANAL FISSURE, UNSPECIFIED 09/20/2015 SUTTON DO, SUMMER D Ot K57. 30 DVRTCLOS OF LG INT W/O PERFORATION OR AB 09/20/2015 SUTTON DO, SUMMER D Ot K60. 2 ANAL FISSURE, UNSPECIFIED 09/25/2015 SUTTON DO, SUMMER D Ot K57. 30 DVRTCLOS OF LG INT W/O PERFORATION OR AB 09/25/2015 SUTTON DO, SUMMER D Ot K60. 2 ANAL FISSURE, UNSPECIFIED 02/19/2016 Ot 724.4 LUMB OSACRAL NEURITIS NOS 02/19/2016 Ot 715.[address] O[address] EOARTHROS NOS- ANKLE 02/19/2016 Ot 729.5 PAIN IN LIMB 02/19/2016 DEEPALI MOTA FILE CLERK Ot 719. 07 JOINT EFFUSION-ANKLE 02/19/2016 DEEPALI MOTA FILE CLERK Ot 719. 47 JOINT PAIN-ANKLE 02/19/2016 MARCELO ZAYAS APRN Ot [...] MARYCRUZ Spicer Ot 553.1 UMBILICAL HERNIA 02/19/2016 ELMORE MD, MARYCRUZ M Ot 562.11 DIVERTICULITIS COLON (W/O MENT OF HEMORR 02/19/2016 RAMÍREZ COPPOLA, MARYCRUZ Spicer Ot 592.0 CALCULUS OF KIDNEY 02/19/2016 RAMÍREZ COPPOLA, MARYCRUZ Spicer Ot 562.11 DIVERTICULITIS COLON (W/O MENT OF HEMORR 02/19/2016 RAMÍREZ COPPOLA, MARYCRUZ Spicer Ot V72.63 PRE-PROCEDURAL LABORATORY EXAMINATION 02/19/2016 RAMÍREZ COPPOLA, MARYCRUZ Spicer Ot V74.8 SCREEN-BACTERIAL DIS NEC 02/19/2016 Ot 345.90 EPI LEPSY UNSPEC W/O MENTION INTRACTABLE 02/19/2016 Ot V58.69 OTH MED,LT,CURRENT USE 02/19/2016 BRYCE FORD MD Ot 780.39 OTHER CONVULSIONS 02/19/2016 BRYCE FORD MD Ot V58.61 ANTICOAGULANTS,LT,CURRENT USE 02/19/2016 BRYCE FORD MD Ot V58.69 OTH MED,LT,CURRENT USE 02/19/2016 BRYCE FORD MD Ot V58.83 ENCOUNTER FOR THERAPEUTIC DRUG MONITORIN 02/19/2016 MARYCRUZ ELMORE MD Ot 276.8 HYPOPOTASSEMIA 02/19/2016 BRYCE FORD MD Ot 345.90 EPILEPSY UNSPEC [...] MARYCRUZ Spicer Ot 789.59 OTHER ASCITES 02/19/2016 MARYCRUZ ELMORE MD Ot 789.59 OTHER ASCITES 02/19/2016 NITA SCHROEDER Ot D68.59 OTHER PRIMARY THROMBOPHILIA 02/19/2016 NITA SCHROEDER Ot Z79.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 OF ANTICOAGULANT 02/19/2016 NITA SCHROEDER Ot Z86.711 PERSONAL HISTORY OF PULMONARY EMBOLISM 02/19/2016 Ot Z51.81 ENC OUNTER FOR THERAPEUTIC DRUG LEVEL MON 02/19/2016 Ot Z79.899 OT HER [facility] (CURRENT) DRUG THERAPY 02/19/2016 ZAIN GONZALES FILE CLERK Ot D68.59 OTHER PRIMARY THROMBOPHILIA 02/19/2016 ZAIN GONZALES FILE CLERK Ot Z79.01 [facility] (CURRENT) USE OF ANTICOAGULANT 02/19/2016 ZAIN GONZALES FILE CLERK Ot Z86.711 PERSONAL HISTORY OF PULMONARY EMBOLISM 02/19/2016 INDERJIT DELGADO FUNDRAISING OFFICER Ot E66.01 MORBID (SEVERE) OBESITY DUE TO EXCESS CA 02/19/2016 INDERJIT DELGADO FUNDRAISING OFFICER Ot I10 ESSENTIAL (PRIMARY) HYPERTENSION 02/19/2016 INDERJIT DELGADO FUNDRAISING OFFICER Ot J06 .9 ACUTE UPPER RESPIRATORY INFECTION, UNSPE 02/19/2016 INDERJIT DELGADO FUNDRAISING OFFICER Ot J44 .9 CHRONIC OBSTRUCTIVE PULMONARY DISEASE, U 02/19/2016 INDERJIT DELGADO FUNDRAISING OFFICER Ot R09.81 NASAL CONGESTION 02/19/2016 INDERJIT DELGADO FUNDRAISING OFFICER Ot Z79.82 ASSEMBLER 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 OF ASPIRIN 02/19/2016 INDERJIT DELGADO FUNDRAISING OFFICER Ot Z79.899 OTHER ASSEMBLER MOTOR VEHICLE (CURRENT) DRUG THERAPY 02/19/2016 Ot 724.4 LUMB OSACRAL NEURITIS NOS 02/19/2016 Ot 715.97 OST EOARTHROS NOS- ANKLE 02/19/2016 Ot 729.5 PAIN IN LIMB 02/19/2016 DEEPALI MOTA FILE CLERK Ot 719. 07 JOINT EFFUSION-ANKLE 02/19/2016 DEEPALI MOTA FILE CLERK Ot 719. 47 JOINT PAIN-ANKLE 02/19/2016 MARCELO ZAYAS FUNDRAISING OFFICER Ot 345.90 EPILEPSY UNSPEC W/O MENTION INTRACTABLE 02/19/2016 RAMÍREZ COPPOLA, MARYCRUZ Spicer Ot 562.11 DIVERTICULITIS COLON (W/O MENT OF HEMORR 02/19/2016 RAMÍREZ COPPOLA, MARYCRUZ Spicer Ot 255.8 ADRENAL DISORDER NEC 02/19/2016 RAMÍREZ COPPOLA, MARYCRUZ Spicer Ot 553.1 UMBILICAL HERNIA 02/19/2016 MARYCRUZ ELMORE MD Ot 562.11 DIVERTICULITIS COLON (W/O MENT OF HEMORR 02/19/2016 MARYCRUZ ELMORE MD Ot 569.5 INTESTINAL ABSCESS 02/19/2016 MARYCRUZ ELMORE MD Ot V72.84 EXAM PRE-OPERATIVE NOS 02/19/2016 MARYCRUZ ELMORE MD Ot 553.1 UMBILICAL HERNIA 02/19/2016 MARYCRUZ ELMORE MD Ot 562.11 DIVERTICULITIS COLON (W/O MENT OF HEMORR 02/19/2016 MARYCRUZ ELMORE MD Ot 592.0 CALCULUS OF KIDNEY 02/19/2016 MARYCRUZ ELMORE MD Ot 562.11 DIVERTICULITIS COLON (W/O MENT OF HEMORR 02/19/2016 RAMÍREZ COPPOLA, MARYCRUZ Spicer Ot V72.63 PRE-PROCEDURAL LABORATORY EXAMINATION 02/19/2016 MARYCRUZ ELMORE MD Ot V74.8 SCREEN-BACTERIAL DIS NEC 02/19/2016 Ot 345.90 EPI LEPSY UNSPEC W/O MENTION INTRACTABLE 02/19/2016 Ot V58.69 OTH MED,LT,CURRENT USE 02/19/2016 BRYCE FORD MD Ot 780.39 OTHER CONVULSIONS 02/19/2016 BRYCE FORD MD Ot V58.61 ANTICOAGULANTS,LT,CURRENT USE 02/19/2016 BRYCE FORD MD Ot V58.69 OTH MED,LT,CURRENT USE 02/19/2016 BRYCE FORD MD Ot V58.83 ENCOUNTER FOR THERAPEUTIC DRUG MONITORIN 02/19/2016 MARYCRUZ ELMORE MD Ot 276.8 HYPOPOTASSEMIA 02/19/2016 BRYCE FORD MD Ot 345.90 EPILEPSY UNSPEC [...] 786.50 CHEST PAIN NOS 02/19/2016 ALYSON COPPOLA FACAlistair, ALI FACP CCDS Ot V85.37 BODY MASS INDEX 37.0-37.9, ADULT 02/19/2016 RAMÍREZ COPPOLA, MARYCRUZ Spicer Ot 415.19 OTH PULMON EMBOLISM/INFARCT 02/19/2016 MARYCRUZ ELMORE MD Ot 415.19 OTH PULMON EMBOLISM/INFARCT 02/19/2016 MARYCRUZ ELMORE MD Ot 789.59 OTHER ASCITES 02/19/2016 MARYCRUZ ELMORE MD Ot 789.59 OTHER ASCITES 02/19/2016 NITA SCHROEDER Ot D68.59 OTHER PRIMARY THROMBOPHILIA 02/19/2016 NITA SCHROEDER Ot Z79.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 OF ANTICOAGULANT 02/19/2016 NITA SCHROEDER Ot Z86.711 PERSONAL HISTORY OF PULMONARY EMBOLISM 02/19/2016 Ot Z51.81 ENC OUNTER FOR THERAPEUTIC DRUG LEVEL MON 02/19/2016 Ot Z79.899 OT HER ASSEMBLER MOTOR VEHICLE (CURRENT) DRUG THERAPY 02/19/2016 ZAIN GONZALES FILE CLERK Ot D68.59 OTHER PRIMARY THROMBOPHILIA 02/19/2016 ZAIN GONZALES FILE CLERK Ot Z79.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 OF ANTICOAGULANT 02/19/2016 ZAIN GONZALES FILE CLERK Ot Z86.711 PERSONAL HISTORY OF PULMONARY EMBOLISM 03/04/2016 INGRID DOSHI MD Ot E66.01 MORBID (SEVERE) OBESITY DUE TO EXCESS CA 03/04/2016 INGRID DOSHI MD Ot G40.909 EPILEPSY, UNSP, NOT INTRACTABLE, WITHOUT 03/04/2016 INGRID DOSHI MD Ot G47.33 OBSTRUCTIVE SLEEP APNEA (ADULT) (PEDIATR 03/04/2016 INGRID DOSHI MD Ot I1 0 ESSENTIAL (PRIMARY) HYPERTENSION 03/04/2016 INGRID DOSHI MD Ot I26.92 SADDLE EMBOLUS OF PULMONARY ARTERY W/O A 03/04/2016 INGRID DOSHI MD Ot I82.433 ACUTE EMBOLISM AND THROMBOSIS OF POPLITE 03/04/2016 INGRID DOSHI MD Ot Z68.42 BODY MASS INDEX (BMI) 45.0-49.9, ADULT 10/30/2017 INGRID DOSHI MD Ot D50.9 IRON DEFICIENCY ANEMIA, UNSPECIFIED 11/13/2017 INGRID DOSHI MD Ot D50.9 IRON DEFICIENCY ANEMIA, UNSPECIFIED 09/06/2018 MARCELL COPPOLA, CRYSTAL Lombardi Ot E66. 01 MORBID (SEVERE) OBESITY DUE TO EXCESS CA 09/06/2018 MARCELL COPPOLA, CRYSTAL Lombardi Ot F41. 9 ANXIETY DISORDER, UNSPECIFIED 09/06/2018 MARCELL COPPOLA, CRYSTAL Lombardi Ot G40.909 EPILEPSY, UNSP, NOT INTRACTABLE, WITHOUT 09/06/2018 MARCELL COPPOLA, CRYSTAL Lombardi Ot I10 ESSENTIAL (PRIMARY) HYPERTENSION 09/06/2018 MARCELL COPPOLA, CRYSTAL Lombardi Ot M25.562 PAIN IN LEFT KNEE 09/06/2018 MARCELL COPPOLA, CRYSTAL Lombardi Ot M47.896 OTHER SPONDYLOSIS, LUMBAR REGION 09/06/2018 MARCELL COPPOLA, CRYSTAL Lombardi Ot M54. 5 LOW BACK PAIN 09/06/2018 MARCELL COPPOLA, CRYSTAL Lombardi Ot Z68. 42 BODY MASS INDEX (BMI) 45.0-49.9, ADULT 09/06/2018 MARCELL COPPOLA, CRYSTAL Lombardi Ot Z79. 82 [facility] (CURRENT) USE OF ASPIRIN 09/06/2018 MARCELL COPPOLA, CRYSTAL Lombardi Ot Z80. 0 FAMILY HISTORY OF MALIGNANT NEOPLASM OF 09/06/2018 CRYSTAL FAITH MD Ot Z80. 3 FAMILY HISTORY OF MALIGNANT NEOPLASM OF 09/06/2018 CRYSTAL FAITH MD Ot Z82. 49 FAMILY HX OF ISCHEM HEART DIS AND OTH DI 09/06/2018 CRYSTAL FAITH MD Ot Z86.711 PERSONAL HISTORY OF PULMONARY EMBOLISM 09/06/2018 MARCELL COPPOLA, CRYSTAL Lombardi Ot Z86.718 PERSONAL HISTORY OF OTHER VENOUS THROMBO 09/06/2018 CRYSTAL FAITH MD Ot Z87. 19 PERSONAL HISTORY OF OTHER DISEASES OF 09/06/2018 CRYSTAL FAITH MD Ot Z87.442 PERSONAL HISTORY OF URINARY CALCULI 09/06/2018 MARCELL COPPOLA, CRYSTAL Lombardi Ot Z93. 3 COLOSTOMY STATUS 09/11/2018 MARCELL COPPOLA, CRYSTAL Lombardi Ot E66. 01 MORBID (SEVERE) OBESITY DUE TO EXCESS CA 09/11/2018 MARCELL COPPOLA, CRYSTAL Lombardi Ot F41. 9 ANXIETY DISORDER, UNSPECIFIED 09/11/2018 MARCELL COPPOLA, CRYSTAL Lombardi Ot G40.909 EPILEPSY, UNSP, NOT INTRACTABLE, WITHOUT 09/11/2018 MARCELL COPPOLA, CRYSTAL Lombardi Ot I10 ESSENTIAL (PRIMARY) HYPERTENSION 09/11/2018 MARCELL COPPOLA, CRYSTAL Lombardi Ot M25.562 PAIN IN LEFT KNEE 09/11/2018 CRYSTAL FAITH MD Ot M47.896 OTHER SPONDYLOSIS, LUMBAR REGION 09/11/2018 MARCELL COPPOLA, CRYSTAL Lombardi Ot M54. 5 LOW BACK PAIN 09/11/2018 MARCELL COPPOLA, CRYSTAL Lombardi Ot Z68. 42 BODY MASS INDEX (BMI) 45.0-49.9, ADULT 09/11/2018 CRYSTAL FAITH MD Ot Z79. 82 [facility] (CURRENT) USE OF ASPIRIN 09/11/2018 CRYSTAL FAITH MD Ot Z80. 0 FAMILY HISTORY OF MALIGNANT NEOPLASM OF 09/11/2018 CRYSTAL FAITH MD Ot Z80. 3 FAMILY HISTORY OF MALIGNANT NEOPLASM OF 09/11/2018 MARCELL COPPOLA, CRYSTAL Lombardi Ot Z82. 49 FAMILY HX OF ISCHEM HEART DIS AND OTH DI 09/11/2018 CRYSTAL FAITH MD Ot Z86.711 PERSONAL HISTORY OF PULMONARY EMBOLISM 09/11/2018 CRYSTAL FAITH MD Ot Z86.718 PERSONAL HISTORY OF OTHER VENOUS THROMBO 09/11/2018 CRYSTAL FAITH MD Ot Z87. 19 PERSONAL HISTORY OF OTHER DISEASES OF 09/11/2018 CRYSTAL FAITH MD Ot Z87.442 PERSONAL HISTORY OF URINARY CALCULI 09/11/2018 CRYSTAL FAITH MD Ot Z93. 3 COLOSTOMY STATUS 09/11/2018 RAMÍREZ COPPOLA, MARYCRUZ M Ot 562.11 DIVERTICULITIS COLON (W/O MENT OF HEMORR 09/11/2018 RAMÍREZ COPPOLA, MARYCRUZ M Ot 255.8 ADRENAL DISORDER NEC 09/11/2018 RAMÍREZ COPPOLA, MARYCRUZ M Ot 553.1 UMBILICAL HERNIA 09/11/2018 RAMÍREZ COPPOLA, MARYCRUZ M Ot 562.11 DIVERTICULITIS COLON (W/O MENT OF HEMORR 09/11/2018 RAMÍREZ COPPOLA, MARYCRUZ M Ot 569.5 INTESTINAL ABSCESS 09/11/2018 RAMÍREZ COPOPLA, MARYCRUZ M Ot V72.84 EXAM PRE-OPERATIVE NOS 09/11/2018 RAMÍREZ COPPOLA, MARYCRUZ M Ot 553.1 UMBILICAL HERNIA 09/11/2018 RAMÍREZ COPPOLA, MARYCRUZ M Ot 562.11 DIVERTICULITIS COLON (W/O MENT OF HEMORR 09/11/2018 RAMÍREZ COPPOLA, MARYCRUZ M Ot 592.0 CALCULUS OF KIDNEY 09/11/2018 RAMÍREZ COPPOLA, MARYCRUZ M Ot 562.11 DIVERTICULITIS COLON (W/O MENT OF HEMORR 09/11/2018 RAMÍREZ COPPOLA, MARYCRUZ M Ot V72.63 PRE-PROCEDURAL LABORATORY EXAMINATION 09/11/2018 RAMÍREZ COPPOLA, MARYCRUZ M Ot V74.8 SCREEN-BACTERIAL DIS NEC 09/11/2018 Ot 345.90 EPI LEPSY UNSPEC W/O MENTION INTRACTABLE 09/11/2018 Ot V58.69 OTH MED,LT,CURRENT USE 09/11/2018 LILIANA COPPOLA, BRYCE Mallory Ot 780.39 OTHER CONVULSIONS 09/11/2018 BRYCE FORD MD Ot V58.61 ANTICOAGULANTS,LT,CURRENT USE 09/11/2018 BRYCE FORD MD Ot V58.69 OTH MED,LT,CURRENT USE 09/11/2018 BRYCE FORD MD Ot V58.83 ENCOUNTER FOR THERAPEUTIC DRUG MONITORIN 09/11/2018 RAMÍREZ COPPOLA, MARYCRUZ M Ot 276.8 HYPOPOTASSEMIA 09/11/2018 LILIANA COPPOLA, BRYCE Mallory Ot 345.90 EPILEPSY UNSPEC W/O MENTION INTRACTABLE 09/11/2018 BRYCE FORD MD Ot V58.61 ANTICOAGULANTS,LT,CURRENT USE 09/11/2018 BRYCE FORD MD Ot V58.69 OTH MED,LT,CURRENT USE 09/11/2018 LILIANA COPPOLA, BRYCE L Ot V58.83 ENCOUNTER FOR THERAPEUTIC DRUG MONITORIN 09/11/2018 LILIANA COPPOLA, BRYCE L Ot 415.19 OTH PULMON EMBOLISM/INFARCT 09/11/2018 LILIANA COPPOLA, BRYCE L Ot V58.61 ANTICOAGULANTS,LT,CURRENT USE 09/11/2018 LILIANA COPPOLA, BRYCE L Ot V58.83 ENCOUNTER FOR THERAPEUTIC DRUG MONITORIN 09/11/2018 LILIANA COPPOLA, BRYCE L Ot 780.39 OTHER CONVULSIONS 09/11/2018 LILIANA COPPOLA, BRYCE L Ot V58.69 OTH MED,LT,CURRENT USE 09/11/2018 LILIANA COPPOLA, BRYCE L Ot V58.61 ANTICOAGULANTS,LT,CURRENT USE 09/11/2018 LILIANA COPPOLA, BRYCE L Ot V58.83 ENCOUNTER FOR THERAPEUTIC DRUG MONITORIN 09/11/2018 RAMÍREZ COPPOLA, MARYCRUZ M Ot 560.9 INTESTINAL OBSTRUCT NOS 09/11/2018 RAMÍREZ COPPOLA, MARYCRUZ M Ot 560.9 INTESTINAL OBSTRUCT NOS 09/11/2018 RAMÍREZ COPPOLA, MARYCRUZ M Ot V58.69 OTH MED,LT,CURRENT USE 09/11/2018 RAMÍREZ COPPOLA, MARYCRUZ M Ot V72.63 PRE-PROCEDURAL LABORATORY EXAMINATION 09/11/2018 RAMÍREZ COPPOLA, MARYCRUZ M Ot V74.8 SCREEN-BACTERIAL DIS NEC 09/11/2018 ALYSON COPPOLA FAC, ALI FACP CCDS Ot 278.00 OBESITY, NOS 09/11/2018 ALYSON COPPOLA FACC, ALI FACP CCDS Ot 345.90 EPILEPSY UNSPEC W/O MENTION INTRACTABLE 09/11/2018 ALYSON COPPOLA FACC, ALI FACP CCDS Ot 401.9 HYPERTENSION NOS 09/11/2018 ALYSON COPPOLA FACC, ALI FACP CCDS Ot 786.50 CHEST PAIN NOS 09/11/2018 ALYSON COPPOLA FACC, ALI FACP CCDS Ot V85.37 BODY MASS INDEX 37.0-37.9, ADULT 09/11/2018 RAMÍREZ COPPOLA, MARYCRUZ Spicer Ot 415.19 OTH PULMON EMBOLISM/INFARCT 09/11/2018 MARYCRUZ ELMORE MD M Ot 415.19 OTH PULMON EMBOLISM/INFARCT 09/11/2018 MARYCRUZ ELMORE MD M Ot 789.59 OTHER ASCITES 09/11/2018 ELMORE MD, MARYCRUZ M Ot 789.59 OTHER ASCITES 09/11/2018 NITA SCHROEDER Ot D68.59 OTHER PRIMARY THROMBOPHILIA 09/11/2018 NITA SCHROEDER Ot Z79.01 [facility] (CURRENT) USE OF ANTICOAGULANT 09/11/2018 NITA SCHROEDER Ot Z86.711 PERSONAL HISTORY OF PULMONARY EMBOLISM 09/11/2018 Ot Z51.81 ENC OUNTER FOR THERAPEUTIC DRUG LEVEL MON 09/11/2018 Ot Z79.899 OT HER [employer] (CURRENT) DRUG THERAPY 09/11/2018 ZAIN GONZALES Ot D68.59 OTHER PRIMARY THROMBOPHILIA 09/11/2018 ZAIN GONZALES FILE CLERK Ot Z79.01 [facility] (CURRENT) USE OF ANTICOAGULANT 09/11/2018 ZAIN GONZALES FILE CLERK Ot Z86.711 PERSONAL HISTORY OF PULMONARY EMBOLISM 09/11/2018 GLENDA COPPOLA, INGRID Graham Ot D50.9 IRON DEFICIENCY ANEMIA, UNSPECIFIED 09/11/2018 JANE OKEEFE APRN Ot M47.816 SPONDYLOSIS W/O MYELOPATHY OR RADICULOPA 09/11/2018 JANE OKEEFE APRN Ot M79.605 PAIN IN LEFT LEG 09/11/2018 JANE OKEEFE APRN Ot M79.89 OTHER SPECIFIED SOFT TISSUE DISORDERS 09/11/2018 JANE OKEEFE APRN Ot Z86.718 PERSONAL HISTORY OF OTHER VENOUS THROMBO 09/11/2018 JANE OKEEFE APRN Ot Z98.890 OTHER SPECIFIED POSTPROCEDURAL STATES 09/18/2018 DONG CHONG DO Ot M17.12 UNILATERAL PRIMARY OSTEOARTHRITIS, LEFT 09/18/2018 DONG CHONG DO Ot M23.222 [facility] MENSC D/T 09/18/2018 DONG CHONG DO Ot 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 [MORGAN] 09/23/2018 JANE OKEEFE APRN Ot M47.816 SPONDYLOSIS W/O MYELOPATHY OR RADICULOPA 09/23/2018 JANE OKEEFE APRN Ot M79.605 PAIN IN LEFT LEG 09/23/2018 JANE OKEEFE APRN Ot M79.89 OTHER SPECIFIED SOFT TISSUE DISORDERS 09/23/2018 JANE OKEEFE APRN Ot Z86.718 PERSONAL HISTORY OF OTHER VENOUS THROMBO 09/23/2018 JANE OKEEFE APRN Ot Z98.890 OTHER SPECIFIED POSTPROCEDURAL STATES 11/05/2018 SUMMER SUTTON DO Ot Z01.818 ENCOUNTER FOR OTHER PREPROCEDURAL EXAMIN 11/05/2018 SUMMER SUTTON DO Ot Z01.818 ENCOUNTER FOR OTHER PREPROCEDURAL EXAMIN 11/05/2018 SUMMER SUTTON DO Ot Z01.818 ENCOUNTER FOR OTHER PREPROCEDURAL EXAMIN 11/10/2018 SUMMER SUTTON DO Ot D12. 0 BENIGN NEOPLASM OF CECUM 11/10/2018 SUMMER SUTTON DO Ot E66. 01 MORBID (SEVERE) OBESITY DUE TO EXCESS CA 11/10/2018 SUMMER SUTTNO DO Ot E78. 5 HYPERLIPIDEMIA, UNSPECIFIED 11/10/2018 SUMMER SUTTON DO Ot I08. 1 RHEUMATIC DISORDERS OF BOTH MITRAL AND T 11/10/2018 SUMMER SUTTON DO Ot I10 ESSENTIAL (PRIMARY) HYPERTENSION 11/10/2018 SUMMER SUTTON DO Ot I27. 20 PULMONARY HYPERTENSION, UNSPECIFIED 11/10/2018 SUMMER SUTTON DO Ot K57. 30 DVRTCLOS OF LG INT W/O PERFORATION OR AB 11/10/2018 SUMMER SUTTON DO Ot M19. 90 UNSPECIFIED OSTEOARTHRITIS, UNSPECIFIED 11/10/2018 SUMMER SUTTON DO Ot Z68. 39 BODY MASS INDEX (BMI) 39.0-39.9, ADULT 11/10/2018 SUMMER SUTTON DO Ot Z79. 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 OF ANTICOAGULANT 11/10/2018 SUMMER SUTTON DO Ot Z79. 82 [facility] (CURRENT) USE OF ASPIRIN 11/10/2018 SUMMER SUTTON DO Ot Z79.899 OTHER ASSEM[employer] VEHICLE (CURRENT) DRUG THERAPY 11/10/2018 SUMMER SUTTON DO Ot Z80. 9 FAMILY HISTORY OF MALIGNANT NEOPLASM, UN 11/10/2018 SUMMER SUTTON DO Ot Z82. 49 FAMILY HX OF ISCHEM HEART DIS AND OTH DI 11/10/2018 SUMMER SUTTON DO, Ot Z85.038 PERSONAL HISTORY OF MALIGNANT NEOPLASM O 11/10/2018 SUMMER SUTTON DO Ot Z86.711 PERSONAL HISTORY OF PULMONARY EMBOLISM 11/10/2018 SUMMER SUTTON DO Ot Z86.718 PERSONAL HISTORY OF OTHER VENOUS THROMBO 11/10/2018 SUMMER SUTTON DO Ot Z98. 0 INTESTINAL BYPASS AND ANASTOMOSIS STATUS 11/18/2018 SUMMER SUTTON DO Ot D12. 0 BENIGN NEOPLASM OF CECUM 11/18/2018 SUMMER SUTTON DO Ot E66. 01 MORBID (SEVERE) OBESITY DUE TO EXCESS CA 11/18/2018 SUMMER SUTTON DO Ot E78. 5 HYPERLIPIDEMIA, UNSPECIFIED 11/18/2018 SUMMER SUTTON DO Ot I08. 1 RHEUMATIC DISORDERS OF BOTH MITRAL AND T 11/18/2018 SUMMER SUTTON DO Ot I10 ESSENTIAL (PRIMARY) HYPERTENSION 11/18/2018 SUMMER SUTTON DO Ot I27. 20 PULMONARY HYPERTENSION, UNSPECIFIED 11/18/2018 SUMMER SUTTON DO Ot K57. 30 DVRTCLOS OF LG INT W/O PERFORATION OR AB 11/18/2018 SUMMER SUTTON DO Ot M19. 90 UNSPECIFIED OSTEOARTHRITIS, UNSPECIFIED 11/18/2018 SUMMER SUTTON DO Ot Z68. 39 BODY MASS INDEX (BMI) 39.0-39.9, ADULT 11/18/2018 SUMMER SUTTON DO Ot Z79. 01 [facility] (CURRENT) USE OF ANTICOAGULANT 11/18/2018 SUMMER SUTTON DO Ot Z79. 82 [facility] (CURRENT) USE OF ASPIRIN 11/18/2018 SUMMER SUTTON DO Ot Z79.899 OTHER [employer] (CURRENT) DRUG THERAPY 11/18/2018 SUMMER SUTTON DO Ot Z80. 9 FAMILY HISTORY OF MALIGNANT NEOPLASM, UN 11/18/2018 SUMMER SUTTON DO Ot Z82. 49 FAMILY HX OF ISCHEM HEART DIS AND OTH DI 11/18/2018 SUMMER SUTTON DO, Ot Z85.038 PERSONAL HISTORY OF MALIGNANT NEOPLASM O 11/18/2018 SUMMER SUTTON DO, Ot Z86.711 PERSONAL HISTORY OF PULMONARY EMBOLISM 11/18/2018 SUMMER SUTTON DO, Ot Z86.718 PERSONAL HISTORY OF OTHER VENOUS THROMBO 11/18/2018 SUMMER SUTTON DO Ot Z98. 0 INTESTINAL BYPASS AND ANASTOMOSIS STATUS 11/20/2018 JC COPPOLA, PATRICIA Garcia Ot E66. 9 OBESITY, UNSPECIFIED 11/20/2018 PATRICIA GREENE MD Ot I10 ESSENTIAL (PRIMARY) HYPERTENSION 11/20/2018 PATRICIA GREENE MD Ot I26. 99 OTHER PULMONARY EMBOLISM WITHOUT ACUTE C 11/20/2018 PATRICIA GREENE MD Ot I27. 20 PULMONARY HYPERTENSION, UNSPECIFIED 11/20/2018 PATRICIA GREENE MD Ot I34. 0 NONRHEUMATIC MITRAL (VALVE) INSUFFICIENC 11/27/2018 PATRICIA GREENE MD Ot E66. 9 OBESITY, UNSPECIFIED 11/27/2018 PATRICIA GREENE MD Ot I10 ESSENTIAL (PRIMARY) HYPERTENSION 11/27/2018 PATRICIA GREENE MD Ot I26. 99 OTHER PULMONARY EMBOLISM WITHOUT ACUTE C 11/27/2018 PATRICIA GREENE MD Ot I27. 20 PULMONARY HYPERTENSION, UNSPECIFIED 11/27/2018 PATRICIA GREENE MD Ot I34. 0 NONRHEUMATIC MITRAL (VALVE) INSUFFICIENC 11/27/2018 PATRICIA GREENE MD Ot Z80. 0 FAMILY HISTORY OF MALIGNANT NEOPLASM OF 11/27/2018 PATRICIA GREENE MD Ot Z86.010 PERSONAL HISTORY OF COLONIC POLYPS 12/03/2018 PATRICIA GREENE MD Ot E66. 9 OBESITY, UNSPECIFIED 12/03/2018 PATRICIA GREENE MD Ot I10 ESSENTIAL (PRIMARY) HYPERTENSION 12/03/2018 PATRICIA GREENE MD Ot I26. 99 OTHER PULMONARY EMBOLISM WITHOUT ACUTE C 12/03/2018 PATRICIA GREENE MD Ot I27. 20 PULMONARY HYPERTENSION, UNSPECIFIED 12/03/2018 PATRICIA GREENE MD Ot I34. 0 NONRHEUMATIC MITRAL (VALVE) INSUFFICIENC 12/09/2018 PATRICIA GREENE MD Ot E66. 9 OBESITY, UNSPECIFIED 12/09/2018 PATRICIA GREENE MD Ot I10 ESSENTIAL (PRIMARY) HYPERTENSION 12/09/2018 PATRICIA GREENE MD Ot I26. 99 OTHER PULMONARY EMBOLISM WITHOUT ACUTE C 12/09/2018 PATRICIA GREENE MD Ot I27. 20 PULMONARY HYPERTENSION, UNSPECIFIED 12/09/2018 PATRICIA GREENE MD Ot I34. 0 NONRHEUMATIC MITRAL (VALVE) INSUFFICIENC 12/09/2018 PATRICIA GREENE MD Ot Z80. 0 FAMILY HISTORY OF MALIGNANT NEOPLASM OF 12/09/2018 JC COPPOLA, PATRICIA Garcia Ot Z86.010 PERSONAL HISTORY OF COLONIC POLYPS 01/03/2019 INDERJIT DELGADO APRN Ot E66.01 MORBID (SEVERE) OBESITY DUE TO EXCESS CA 01/03/2019 INDERJIT DELGADO APRN Ot F41 .9 ANXIETY DISORDER, UNSPECIFIED 01/03/2019 INDERJIT DELGADO APRN Ot G40.909 EPILEPSY, UNSP, NOT INTRACTABLE, WITHOUT 01/03/2019 INDERJIT DELGADO APRN Ot H53 .8 OTHER VISUAL DISTURBANCES 01/03/2019 INDERJIT DELGADO APRN Ot H54 .7 UNSPECIFIED VISUAL LOSS 01/03/2019 INDERJIT DELGADO APRN Ot I10 ESSENTIAL (PRIMARY) HYPERTENSION 01/03/2019 INDERJIT DELGADO APRN Ot Z68.41 BODY MASS INDEX (BMI) 40.0-44.9, ADULT 01/03/2019 INDERJIT DELGADO APRN Ot Z79.01 [facility] (CURRENT) USE OF ANTICOAGULANT 01/03/2019 INDERJIT DELGADO APRN Ot Z79.82 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 OF ASPIRIN 01/03/2019 INDERJIT DELGADO APRN Ot Z80 .3 FAMILY HISTORY OF MALIGNANT NEOPLASM OF 01/03/2019 INDERJIT DELGADO APRN Ot Z82.49 FAMILY HX OF ISCHEM HEART DIS AND OTH DI 01/03/2019 INDERJIT DELGADO APRN Ot Z86.711 PERSONAL HISTORY OF PULMONARY EMBOLISM 01/03/2019 INDERJIT DELGADO APRN Ot Z86.718 PERSONAL HISTORY OF OTHER VENOUS THROMBO 01/03/2019 INDERJIT DELGADO APRN Ot Z93 .3 COLOSTOMY STATUS 01/05/2019 INDERJIT DELGADO APRN Ot E66.01 MORBID (SEVERE) OBESITY DUE TO EXCESS CA 01/05/2019 INDERJIT DELGADO APRN Ot F41 .9 ANXIETY DISORDER, UNSPECIFIED 01/05/2019 INDERJIT DELGADO APRN Ot G40.909 EPILEPSY, UNSP, NOT INTRACTABLE, WITHOUT 01/05/2019 INDERJIT DELGADO APRN Ot H53 .8 OTHER VISUAL DISTURBANCES 01/05/2019 INDERJIT DELGADO APRN Ot H54 .7 UNSPECIFIED VISUAL LOSS 01/05/2019 INDERJIT DELGADO APRN Ot I10 ESSENTIAL (PRIMARY) HYPERTENSION 01/05/2019 INDERJIT DELGADO APRN Ot Z68.41 BODY MASS INDEX (BMI) 40.0-44.9, ADULT 01/05/2019 INDERJIT DELGADO APRN Ot Z79.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 OF ANTICOAGULANT 01/05/2019 INDERJIT DELGADO APRN Ot Z79.82 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 OF ASPIRIN 01/05/2019 INDERJIT DELGADO APRN Ot Z80 .3 FAMILY HISTORY OF MALIGNANT NEOPLASM OF 01/05/2019 INDERJIT DELGADO APRN Ot Z82.49 FAMILY HX OF ISCHEM HEART DIS AND OTH DI 01/05/2019 INDERJIT DELGADO APRN Ot Z86.711 PERSONAL HISTORY OF PULMONARY EMBOLISM 01/05/2019 INDERJIT DELGADO APRN Ot Z86.718 PERSONAL HISTORY OF OTHER VENOUS THROMBO 01/05/2019 INDERJIT DELGADO APRN Ot Z93 .3 COLOSTOMY STATUS 01/09/2019 INDERJIT DELGADO APRN Ot E66.01 MORBID (SEVERE) OBESITY DUE TO EXCESS CA 01/09/2019 INDERJIT DELGADO APRN Ot F41 .9 ANXIETY DISORDER, UNSPECIFIED 01/09/2019 INDERJIT DELGADO APRN Ot G40.909 EPILEPSY, UNSP, NOT INTRACTABLE, WITHOUT 01/09/2019 INDERJIT DELGADO APRN Ot H53 .8 OTHER VISUAL DISTURBANCES 01/09/2019 INDERJIT DELGADO APRN Ot H54 .7 UNSPECIFIED VISUAL LOSS 01/09/2019 INDERJIT DELGADO APRN Ot I10 ESSENTIAL (PRIMARY) HYPERTENSION 01/09/2019 INDERJIT DELGADO APRN Ot Z68.41 BODY MASS INDEX (BMI) 40.0-44.9, ADULT 01/09/2019 INDERJIT DELGADO APRN Ot Z79.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 OF ANTICOAGULANT 01/09/2019 INDERJIT DELGADO APRN Ot Z79.82 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 OF ASPIRIN 01/09/2019 INDERJIT DELGADO APRN Ot Z80 .3 FAMILY HISTORY OF MALIGNANT NEOPLASM OF 01/09/2019 INDERJIT DELGADO APRN Ot Z82.49 FAMILY HX OF ISCHEM HEART DIS AND OTH DI 01/09/2019 INDERJIT DELGADO APRN Ot Z86.711 PERSONAL HISTORY OF PULMONARY EMBOLISM 01/09/2019 INDERJIT DELGADO [employer]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 OFFICER Ot Z86.718 PERSONAL HISTORY OF OTHER VENOUS THROMBO 01/09/2019 INDERJIT DELGADO [employer]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 Ot Z93 .3 COLOSTOMY STATUS 01/29/2019 FAUZIA WALKER MD Ot F41 .9 ANXIETY DISORDER, UNSPECIFIED 01/29/2019 FAUZIA WALKER MD Ot G62 .9 POLYNEUROPATHY, UNSPECIFIED 01/29/2019 FAUZIA WALKER MD Ot H25.11 AGE-RELATED NUCLEAR CATARACT, RIGHT EYE 01/29/2019 FAUZIA WALKER MD Ot I10 ESSENTIAL (PRIMARY) HYPERTENSION 01/29/2019 FAUZIA WALKER MD Ot M19.90 UNSPECIFIED OSTEOARTHRITIS, UNSPECIFIED 01/29/2019 FAUZIA WALKER MD Ot Z79.899 OTHER [facility] (CURRENT) DRUG THERAPY 01/29/2019 FAUZIA WALKER MD Ot Z80 .0 FAMILY HISTORY OF MALIGNANT NEOPLASM OF 01/29/2019 FAUZIA WALKER MD Ot Z83.511 FAMILY HISTORY OF GLAUCOMA 01/29/2019 FAUZIA WLAKER MD Ot Z90.49 ACQUIRED ABSENCE OF OTHER SPECIFIED PART 01/29/2019 FAUZIA WALKER MD Ot Z90.89 ACQUIRED ABSENCE OF OTHER ORGANS 01/29/2019 FAUZIA WALKER MD Ot Z01.818 ENCOUNTER FOR OTHER PREPROCEDURAL EXAMIN 02/02/2019 FAUZIA WALKER MD Ot F41 .9 ANXIETY DISORDER, UNSPECIFIED 02/02/2019 FAUZIA WALKER MD Ot G62 .9 POLYNEUROPATHY, UNSPECIFIED 02/02/2019 FAUZIA WALKER MD Ot H25.11 AGE-RELATED NUCLEAR CATARACT, RIGHT EYE 02/02/2019 FAUZIA WALKER MD Ot I10 ESSENTIAL (PRIMARY) HYPERTENSION 02/02/2019 FAUZIA WALKER MD Ot M19.90 UNSPECIFIED OSTEOARTHRITIS, UNSPECIFIED 02/02/2019 FAUZIA WALKER MD Ot Z79.899 OTHER [employer] (CURRENT) DRUG THERAPY 02/02/2019 FAUZIA WALKER MD Ot Z80 .0 FAMILY HISTORY OF MALIGNANT NEOPLASM OF 02/02/2019 FAUZIA WALKER MD Ot Z83.511 FAMILY HISTORY OF GLAUCOMA 02/02/2019 FAUZIA WALKER MD Ot Z90.49 ACQUIRED ABSENCE OF OTHER SPECIFIED PART 02/02/2019 FAUZIA WALKER MD Ot Z90.89 ACQUIRED ABSENCE OF OTHER ORGANS 02/09/2019 FAUZIA WALKER MD Ot F41 .9 ANXIETY DISORDER, UNSPECIFIED 02/09/2019 FAUZIA WALKER MD Ot G62 .9 POLYNEUROPATHY, UNSPECIFIED 02/09/2019 FAUZIA WALKER MD Ot H25.12 AGE-RELATED NUCLEAR CATARACT, LEFT EYE 02/09/2019 FAUZIA WALKER MD Ot I10 ESSENTIAL (PRIMARY) HYPERTENSION 02/09/2019 FAUZIA WALKER MD Ot M19.90 UNSPECIFIED OSTEOARTHRITIS, UNSPECIFIED 02/09/2019 FAUZIA WALKER MD Ot Z79.899 OTHER [employer] (CURRENT) DRUG THERAPY 02/09/2019 FAUZIA WALKER MD Ot Z80 .0 FAMILY HISTORY OF MALIGNANT NEOPLASM OF 02/09/2019 FAUZIA WALKER MD Ot Z83.511 FAMILY HISTORY OF GLAUCOMA 02/09/2019 FAUZIA WALKER MD Ot Z90.49 ACQUIRED ABSENCE OF OTHER SPECIFIED PART 02/09/2019 FAUZIA WALKER MD Ot Z90.89 ACQUIRED ABSENCE OF OTHER ORGANS 02/11/2019 FAUZIA WALKER MD Ot F41 .9 ANXIETY DISORDER, UNSPECIFIED 02/11/2019 FAUZIA WALKER MD Ot G62 .9 POLYNEUROPATHY, UNSPECIFIED 02/11/2019 FAUZIA WALKER MD Ot H25.12 AGE-RELATED NUCLEAR CATARACT, LEFT EYE 02/11/2019 FAUZIA WALKER MD Ot I10 ESSENTIAL (PRIMARY) HYPERTENSION 02/11/2019 FAUZIA WALKER MD Ot M19.90 UNSPECIFIED OSTEOARTHRITIS, UNSPECIFIED 02/11/2019 FAUZIA WALKER MD Ot Z79.899 OTHER [employer] (CURRENT) DRUG THERAPY 02/11/2019 FAUIZA WALKER MD Ot Z80 .0 FAMILY HISTORY OF MALIGNANT NEOPLASM OF 02/11/2019 FAUZIA WALKER MD Ot Z83.511 FAMILY HISTORY OF GLAUCOMA 02/11/2019 FAUZIA WALKER MD Ot Z90.49 ACQUIRED ABSENCE OF OTHER SPECIFIED PART 02/11/2019 DENISE COPPOLA, FAUZIA Mallory Ot Z90.89 ACQUIRED ABSENCE OF OTHER ORGANS 02/11/2019 JANE OKEEFE APRN Ot E27.9 DISORDER OF ADRENAL GLAND, UNSPECIFIED 02/11/2019 JANE OKEEFE APRN Ot N20.0 CALCULUS OF KIDNEY 02/11/2019 JANE OKEEFE APRN Ot Z90.89 ACQUIRED ABSENCE OF OTHER ORGANS 02/17/2019 ASHLEY COPPOLA, JAZLYN Graham Ot N20.0 CALCULUS OF KIDNEY Procedures Code Description Performed By Per formed On 38.93 VENO US CATHETERIZATION NEC 10/06/2013 45.76 OPEN AND OTHER SIGMOIDECTOMY 10/06/2013 46.01 SM B OWEL EXTERIORIZATION 10/06/2013 47.19 OTH INCIDENT APPENDECTOMY 10/06/2013 54.51 LAPA ROSCOP LYSIS-PERITONEAL ADHES 10/06/2013 46.51 SM B OWEL STOMA CLOSURE 12/17/2013 96.07 INSE RT GASTRIC TUBE NEC 12/18/2013 Results Test Result Range PT panel in platelet poor plasma by coag ulation assay - 02/27/16 09:30 Prothrombin time (PT) in platelet poor plasma by coagu lation assay 11.9 s 12.2-14.7 INR in platelet poor plasma or blood by coagulation as say 0.9 0.8-1.4 Activated partial thromboplastin time (a PTT) in platelet poor plasma bycoagulation assay - 02/27/16 09:30 Activated partial thromboplastin time (a PTT) in platelet poor plasma bycoagulation assay 23 s 24-35 Bacterial blood culture - 02/27/16 09:30 Bacterial blood culture NG NRG Complete blood count (CBC) with automate d white blood cell (WBC) differential - 02/27/16 09:50 Blood leukocytes automated count (number/volume) 14.1 10*3/uL 4.3-11.0 Blood erythrocytes automated count (number/volume) 5.38 10*6/uL 4.35-5.85 Venous blood hemoglobin measurement (mass/volume) 17.7 g/dL 13.3-17.7 Blood hematocrit (volume fraction) 50 % 40-54 Automated erythrocyte mean corpuscular volume 94 [ foz_us] 80-99 Automated erythrocyte mean corpuscular h emoglobin (mass per erythrocyte) 33 pg 25-34 Automated erythrocyte mean corpuscular h emoglobin concentration measurement (mass/volume) 35 g/dL 32-36 Automated erythrocyte distribution width ratio 14. 1 % 10.0- 14.5 Automated blood platelet count [...] 10*3 1.0-4.0 Blood monocytes automated count (number/volume) 1. 1 10*3 0.0-1.0 Automated eosinophil count 0.1 10*3/uL 0 .0-0.3 Automated blood basophil count (count/volume) 0.0 10*3/uL 0.0-0.1 Blood lactic acid measurement (moles/vol ume) - 02/27/16 09:50 Blood lactic acid measurement (moles/volume) 2.8 m mol/L 0.5- 2.0 Comprehensive metabolic panel - 02/27/16 09:50 Serum or plasma sodium measurement (moles/volume) 139 mmol/L 135-145 Serum or plasma potassium measurement (moles/volume) 4.0 mmol/L 3.6-5.0 Serum or plasma chloride measurement (moles/volume) 107 mmol/L 98-107 Carbon dioxide 18 mmol/L 21-32 Serum or plasma anion gap determination (moles/volume) 14 mmol/L 5-14 Serum or plasma urea nitrogen measurement (mass/volume ) 16 mg/dL 7-18 Serum or plasma creatinine measurement (mass/volume) 0.81 mg/dL 0.60-1.30 Serum or plasma urea nitrogen/creatinine mass ratio 20 NRG Serum or plasma creatinine measurement w ith calculation of estimated glomerular filtration rate > NRG Serum or plasma glucose measurement (mass/volume) 108 mg/dL 70-105 Serum or plasma calcium measurement (mass/volume) 9.1 mg/dL 8.5-10.1 Serum or plasma total bilirubin measurement (mass/volu me) 0.5 mg/dL 0.1-1.0 Serum or plasma alkaline phosphatase shantal surement (enzymatic activity/volume) 147 U/L 40-136 Serum or plasma aspartate aminotransfera se measurement (enzymatic activity/volume) 37 U/L 5-34 Serum or plasma alanine aminotransferase measurement (enzymatic activity/volume) 45 U/L 0-55 Serum or plasma protein measurement (mass/volume) 8.0 g/dL 6.4-8.2 Serum or plasma albumin measurement (mass/volume) 3.9 g/dL 3.2-4.5 Serum or plasma C reactive protein measu rement (mass/volume) - 02/27/16 09:50 Serum or plasma C reactive protein measurement (mass/v olume) 1.83 mg/dL 0.00-0.50 Blood manual differential performed dete ction - 02/27/16 09:50 Blood monocytes/100 leukocytes 5 [...] NG NRG Complete urinalysis with reflex to cultu re - 02/27/16 10:20 Urine color determination YELLOW NRG Urine clarity determination CLEAR NR G Urine pH measurement by test strip 6 5-9 Specific gravity of urine by test strip 1.025 1.016-1.022 Urine protein assay by test strip, semi-quantitative 2+ NEGATIVE Urine glucose detection by automated test strip NE GATIVE NEGATIVE Erythrocytes detection in urine sediment by light micr oscopy NEGATIVE NEGATIVE Urine ketones detection by automated test strip NE GATIVE NEGATIVE Urine nitrite detection by test strip NEGATIVE NEGATIVE Urine total bilirubin detection by test strip NEGA TIVE NEGATIVE Urine urobilinogen measurement by automated test strip (mass/volume) NORMAL NORMAL Urine leukocyte esterase detection by dipstick 1+ NEGATIVE Automated urine sediment erythrocyte cou nt by microscopy (number/high power field) NONE NRG Automated urine sediment leukocyte count by microscopy (number/high power field) RARE NRG Bacteria detection in urine sediment by light microsco py NEGATIVE NRG Squamous epithelial cells detection in u rine sediment by light microscopy RARE NRG Crystals detection in urine sediment by light microsco py NONE NRG Casts detection in urine sediment by light microscopy NONE NRG Mucus detection in urine sediment by light microscopy SMALL NRG Complete urinalysis with reflex to culture NO NRG Serum or plasma lactate measurement (mol es/volume) - 02/27/16 12:00 Serum or plasma lactate measurement (moles/volume) 1.3 mmol/L 0.5-2.0 Influenza virus A and B antigen detectio n - 02/27/16 12:30 FLU RESULT NEGATIVE FOR INFLUENZA A AND B ANTIGENS BY IA NRG Activated partial thromboplastin time (a PTT) in platelet poor plasma bycoagulation assay - 02/27/16 17:05 Activated partial thromboplastin time (a PTT) in platelet poor plasma bycoagulation assay 29 s 24-35 Sputum Gram stain - 02/27/16 20:00 GRAM STAIN SPUTUM AND MIXED BACTERIAL SEBASTIÁN NRG Bacterial sputum culture - 02/27/16 20:0 0 Bacterial sputum culture NORMAL NRG Activated partial thromboplastin time (a PTT) in platelet poor plasma bycoagulation assay - 02/28/16 00:30 Activated partial thromboplastin time (a PTT) in platelet poor plasma bycoagulation assay 57 s 24-35 Whole blood basic metabolic panel - 06/10 05:50 Serum or plasma sodium measurement (moles/volume) 136 mmol/L 135-145 Serum or plasma potassium measurement (moles/volume) 3.6 mmol/L 3.6-5.0 Serum or plasma chloride measurement (moles/volume) 108 mmol/L 98-107 Carbon dioxide 15 mmol/L 21-32 Serum or plasma anion gap determination (moles/volume) 13 mmol/L 5-14 Serum or plasma urea nitrogen measurement (mass/volume ) 12 mg/dL 7-18 Serum or plasma creatinine measurement (mass/volume) 0.79 mg/dL 0.60-1.30 Serum or plasma urea nitrogen/creatinine mass ratio 15 NRG Serum or plasma creatinine measurement w ith calculation of estimated glomerular filtration rate > NRG Serum or plasma glucose measurement (mass/volume) 223 mg/dL 70-105 Serum or plasma calcium measurement (mass/volume) 7.7 mg/dL 8.5-10.1 Serum or plasma phosphate measurement (m ass/volume) - 02/28/16 05:50 Serum or plasma phosphate measurement (mass/volume) 5.1 mg/dL 2.3-4.7 Magnesium - 02/28/16 05:50 Magnesium 1.9 mg/dL 1.8-2.4 Complete blood count (CBC) with automate d white blood cell (WBC) differential - 02/28/16 05:50 Blood leukocytes automated count (number/volume) 11.4 10*3/uL 4.3-11.0 Blood erythrocytes automated count (number/volume) 4.53 10*6/uL 4.35-5.85 Venous blood hemoglobin measurement (mass/volume) 15.1 g/dL 13.3-17.7 Blood hematocrit (volume fraction) 43 % 40-54 Automated erythrocyte mean corpuscular volume 96 [ foz_us] 80-99 Automated erythrocyte mean corpuscular h emoglobin (mass per erythrocyte) 33 pg 25-34 Automated erythrocyte mean corpuscular h emoglobin concentration measurement (mass/volume) 35 g/dL 32-36 Automated erythrocyte distribution width ratio 14. 2 % 10.0- 14.5 Automated blood platelet count [...] 10*3 1.0-4.0 Blood monocytes automated count (number/volume) 0. 9 10*3 0.0-1.0 Automated eosinophil count 0.1 10*3/uL 0 .0-0.3 Automated blood basophil count (count/volume) 0.0 10*3/uL 0.0-0.1 Activated partial thromboplastin time (a PTT) in platelet poor plasma bycoagulation assay - 02/28/16 05:50 Activated partial thromboplastin time (a PTT) in platelet poor plasma bycoagulation assay > s 24-35 Activated partial thromboplastin time (a PTT) in platelet poor plasma bycoagulation assay - 02/28/16 14:00 Activated partial thromboplastin time (a PTT) in platelet poor plasma bycoagulation assay 37 s 24-35 Activated partial thromboplastin time (a PTT) in platelet poor plasma bycoagulation assay - 02/28/16 21:46 Activated partial thromboplastin time (a PTT) in platelet poor plasma bycoagulation assay 52 s 24-35 Complete blood count (CBC) with automate d white blood cell (WBC) differential - 02/29/16 05:08 Blood leukocytes automated count (number/volume) 9.9 10*3/uL 4.3-11.0 Blood erythrocytes automated count (number/volume) 4.43 10*6/uL 4.35-5.85 Venous blood hemoglobin measurement (mass/volume) 14.5 g/dL 13.3-17.7 Blood hematocrit (volume fraction) 43 % 40-54 Automated erythrocyte mean corpuscular volume 97 [ foz_us] 80-99 Automated erythrocyte mean corpuscular h emoglobin (mass per erythrocyte) 33 pg 25-34 Automated erythrocyte mean corpuscular h emoglobin concentration measurement (mass/volume) 34 g/dL 32-36 Automated erythrocyte distribution width ratio 14. 4 % 10.0- 14.5 Automated blood platelet count [...] 10*3 1.0-4.0 Blood monocytes automated count (number/volume) 0. 8 10*3 0.0-1.0 Automated eosinophil count 0.1 10*3/uL 0 .0-0.3 Automated blood basophil count (count/volume) 0.0 10*3/uL 0.0-0.1 Activated partial thromboplastin time (a PTT) in platelet poor plasma bycoagulation assay - 02/29/16 05:08 Activated partial thromboplastin time (a PTT) in platelet poor plasma bycoagulation assay 54 s 24-35 Whole blood basic metabolic panel - 07/10 05:08 Serum or plasma sodium measurement (moles/volume) 138 mmol/L 135-145 Serum or plasma potassium measurement (moles/volume) 3.7 mmol/L 3.6-5.0 Serum or plasma chloride measurement (moles/volume) 110 mmol/L 98-107 Carbon dioxide 19 mmol/L 21-32 Serum or plasma anion gap determination (moles/volume) 9 mmol/L 5-14 Serum or plasma urea nitrogen measurement (mass/volume ) 12 mg/dL 7-18 Serum or plasma creatinine measurement (mass/volume) 0.71 mg/dL 0.60-1.30 Serum or plasma urea nitrogen/creatinine mass ratio 17 NRG Serum or plasma creatinine measurement w ith calculation of estimated glomerular filtration rate > NRG Serum or plasma glucose measurement (mass/volume) 107 mg/dL 70-105 Serum or plasma calcium measurement (mass/volume) 8.1 mg/dL 8.5-10.1 Serum or plasma phosphate measurement (m ass/volume) - 02/29/16 05:08 Serum or plasma phosphate measurement (mass/volume) 3.2 mg/dL 2.3-4.7 Magnesium - 02/29/16 05:08 Magnesium 2.2 mg/dL 1.8-2.4 Activated partial thromboplastin time (a PTT) in platelet poor plasma bycoagulation assay - 02/29/16 12:35 Activated partial thromboplastin time (a PTT) in platelet poor plasma bycoagulation assay 74 s 24-35 Activated partial thromboplastin time (a PTT) in platelet poor plasma bycoagulation assay - 02/29/16 18:35 Activated partial thromboplastin time (a PTT) in platelet poor plasma bycoagulation assay 63 s 24-35 Activated partial thromboplastin time (a PTT) in platelet poor plasma bycoagulation assay - 03/01/16 01:04 Activated partial thromboplastin time (a PTT) in platelet poor plasma bycoagulation assay 80 s 24-35 Complete blood count (CBC) with automate d white blood cell (WBC) differential - 03/01/16 06:23 Blood leukocytes automated count (number/volume) 9.1 10*3/uL 4.3-11.0 Blood erythrocytes automated count (number/volume) 4.19 10*6/uL 4.35-5.85 Venous blood hemoglobin measurement (mass/volume) 14.1 g/dL 13.3-17.7 Blood hematocrit (volume fraction) 41 % 40-54 Automated erythrocyte mean corpuscular volume 98 [ foz_us] 80-99 Automated erythrocyte mean corpuscular h emoglobin (mass per erythrocyte) 34 pg 25-34 Automated erythrocyte mean corpuscular h emoglobin concentration measurement (mass/volume) 34 g/dL 32-36 Automated erythrocyte distribution width ratio 14. 5 % 10.0- 14.5 Automated blood platelet count [...] 10*3 1.0-4.0 Blood monocytes automated count (number/volume) 0. 7 10*3 0.0-1.0 Automated eosinophil count 0.1 10*3/uL 0 .0-0.3 Automated blood basophil count (count/volume) 0.0 10*3/uL 0.0-0.1 Activated partial thromboplastin time (a PTT) in platelet poor plasma bycoagulation assay - 03/01/16 06:23 Activated partial thromboplastin time (a PTT) in platelet poor plasma bycoagulation assay 79 s 24-35 Whole blood basic metabolic panel - 08/10 06:23 Serum or plasma sodium measurement (moles/volume) 137 mmol/L 135-145 Serum or plasma potassium measurement (moles/volume) 3.6 mmol/L 3.6-5.0 Serum or plasma chloride measurement (moles/volume) 111 mmol/L 98-107 Carbon dioxide 18 mmol/L 21-32 Serum or plasma anion gap determination (moles/volume) 8 mmol/L 5-14 Serum or plasma urea nitrogen measurement (mass/volume ) 9 mg/dL 7-18 Serum or plasma creatinine measurement (mass/volume) 0.71 mg/dL 0.60-1.30 Serum or plasma urea nitrogen/creatinine mass ratio 13 NRG Serum or plasma creatinine measurement w ith calculation of estimated glomerular filtration rate > NRG Serum or plasma glucose measurement (mass/volume) 113 mg/dL 70-105 Serum or plasma calcium measurement (mass/volume) 8.4 mg/dL 8.5-10.1 Serum or plasma phosphate measurement (m ass/volume) - 03/01/16 06:23 Serum or plasma phosphate measurement (mass/volume) 3.3 mg/dL 2.3-4.7 Magnesium - 03/01/16 06:23 Magnesium 2.2 mg/dL 1.8-2.4 Complete blood count (CBC) with automate d white blood cell (WBC) differential - 03/02/16 05:40 Blood leukocytes automated count (number/volume) 9.4 10*3/uL 4.3-11.0 Blood erythrocytes automated count (number/volume) 4.31 10*6/uL 4.35-5.85 Venous blood hemoglobin measurement (mass/volume) 14.2 g/dL 13.3-17.7 Blood hematocrit (volume fraction) 42 % 40-54 Automated erythrocyte mean corpuscular volume 98 [ foz_us] 80-99 Automated erythrocyte mean corpuscular h emoglobin (mass per erythrocyte) 33 pg 25-34 Automated erythrocyte mean corpuscular h emoglobin concentration measurement (mass/volume) 34 g/dL 32-36 Automated erythrocyte distribution width ratio 14. 5 % 10.0- 14.5 Automated blood platelet count [...] 10*3 1.0-4.0 Blood monocytes automated count (number/volume) 0. 4 10*3 0.0-1.0 Automated eosinophil count 0.1 10*3/uL 0 .0-0.3 Automated blood basophil count (count/volume) 0.0 10*3/uL 0.0-0.1 Activated partial thromboplastin time (a PTT) in platelet poor plasma bycoagulation assay - 03/02/16 05:40 Activated partial thromboplastin time (a PTT) in platelet poor plasma bycoagulation assay 62 s 24-35 Whole blood basic metabolic panel - 09/09 05:40 Serum or plasma sodium measurement (moles/volume) 140 mmol/L 135-145 Serum or plasma potassium measurement (moles/volume) 3.9 mmol/L 3.6-5.0 Serum or plasma chloride measurement (moles/volume) 111 mmol/L 98-107 Carbon dioxide 20 mmol/L 21-32 Serum or plasma anion gap determination (moles/volume) 9 mmol/L 5-14 Serum or plasma urea nitrogen measurement (mass/volume ) 8 mg/dL 7-18 Serum or plasma creatinine measurement (mass/volume) 0.80 mg/dL 0.60-1.30 Serum or plasma urea nitrogen/creatinine mass ratio 10 NRG Serum or plasma creatinine measurement w ith calculation of estimated glomerular filtration rate > NRG Serum or plasma glucose measurement (mass/volume) 107 mg/dL 70-105 Serum or plasma calcium measurement (mass/volume) 8.5 mg/dL 8.5-10.1 Serum or plasma phosphate measurement (m ass/volume) - 03/02/16 05:40 Serum or plasma phosphate measurement (mass/volume) 3.2 mg/dL 2.3-4.7 Magnesium - 03/02/16 05:40 Magnesium 2.1 mg/dL 1.8-2.4 Activated partial thromboplastin time (a PTT) in platelet poor plasma bycoagulation assay - 03/02/16 12:35 Activated partial thromboplastin time (a PTT) in platelet poor plasma bycoagulation assay 89 s 24-35 Activated partial thromboplastin time (a PTT) in platelet poor plasma bycoagulation assay - 03/02/16 19:13 Activated partial thromboplastin time (a PTT) in platelet poor plasma bycoagulation assay 90 s 24-35 Complete blood count (CBC) with automate d white blood cell (WBC) differential - 03/03/16 05:40 Blood leukocytes automated count (number/volume) 6.2 10*3/uL 4.3-11.0 Blood erythrocytes automated count (number/volume) 4.24 10*6/uL 4.35-5.85 Venous blood hemoglobin measurement (mass/volume) 14.0 g/dL 13.3-17.7 Blood hematocrit (volume fraction) 41 % 40-54 Automated erythrocyte mean corpuscular volume 97 [ foz_us] 80-99 Automated erythrocyte mean corpuscular h emoglobin (mass per erythrocyte) 33 pg 25-34 Automated erythrocyte mean corpuscular h emoglobin concentration measurement (mass/volume) 34 g/dL 32-36 Automated erythrocyte distribution width ratio 14. 7 % 10.0- 14.5 Automated blood platelet count [...] 10*3 1.0-4.0 Blood monocytes automated count (number/volume) 0. 5 10*3 0.0-1.0 Automated eosinophil count 0.1 10*3/uL 0 .0-0.3 Automated blood basophil count (count/volume) 0.0 10*3/uL 0.0-0.1 Activated partial thromboplastin time (a PTT) in platelet poor plasma bycoagulation assay - 03/03/16 05:40 Activated partial thromboplastin time (a PTT) in platelet poor plasma bycoagulation assay 116 s 24-35 Whole blood basic metabolic panel - 10/10 05:40 Serum or plasma sodium measurement (moles/volume) 138 mmol/L 135-145 Serum or plasma potassium measurement (moles/volume) 4.0 mmol/L 3.6-5.0 Serum or plasma chloride measurement (moles/volume) 112 mmol/L 98-107 Carbon dioxide 18 mmol/L 21-32 Serum or plasma anion gap determination (moles/volume) 8 mmol/L 5-14 Serum or plasma urea nitrogen measurement (mass/volume ) 7 mg/dL 7-18 Serum or plasma creatinine measurement (mass/volume) 0.75 mg/dL 0.60-1.30 Serum or plasma urea nitrogen/creatinine mass ratio 9 NRG Serum or plasma creatinine measurement w ith calculation of estimated glomerular filtration rate > NRG Serum or plasma glucose measurement (mass/volume) 113 mg/dL 70-105 Serum or plasma calcium measurement (mass/volume) 8.5 mg/dL 8.5-10.1 Serum or plasma phosphate measurement (m ass/volume) - 03/03/16 05:40 Serum or plasma phosphate measurement (mass/volume) 3.5 mg/dL 2.3-4.7 Magnesium - 03/03/16 05:40 Magnesium 2.3 mg/dL 1.8-2.4 Activated partial thromboplastin time (a PTT) in platelet poor plasma bycoagulation assay - 03/03/16 12:05 Activated partial thromboplastin time (a PTT) in platelet poor plasma bycoagulation assay 98 s 24-35 Activated partial thromboplastin time (a PTT) in platelet poor plasma bycoagulation assay - 03/03/16 18:50 Activated partial thromboplastin time (a PTT) in platelet poor plasma bycoagulation assay 82 s 24-35 Complete blood count (CBC) with automate d white blood cell (WBC) differential - 03/04/16 06:19 Blood leukocytes automated count (number/volume) 7.1 10*3/uL 4.3-11.0 Blood erythrocytes automated count (number/volume) 4.09 10*6/uL 4.35-5.85 Venous blood hemoglobin measurement (mass/volume) 13.7 g/dL 13.3-17.7 Blood hematocrit (volume fraction) 40 % 40-54 Automated erythrocyte mean corpuscular volume 98 [ foz_us] 80-99 Automated erythrocyte mean corpuscular h emoglobin (mass per erythrocyte) 34 pg 25-34 Automated erythrocyte mean corpuscular h emoglobin concentration measurement (mass/volume) 34 g/dL 32-36 Automated erythrocyte distribution width ratio 14. 7 % 10.0- 14.5 Automated blood platelet count [...] 10*3 1.0-4.0 Blood monocytes automated count (number/volume) 0. 7 10*3 0.0-1.0 Automated eosinophil count 0.2 10*3/uL 0 .0-0.3 Automated blood basophil count (count/volume) 0.0 10*3/uL 0.0-0.1 Activated partial thromboplastin time (a PTT) in platelet poor plasma bycoagulation assay - 03/04/16 06:19 Activated partial thromboplastin time (a PTT) in platelet poor plasma bycoagulation assay 101 s 24-35 Whole blood basic metabolic panel - 11/10 06:19 Serum or plasma sodium measurement (moles/volume) 138 mmol/L 135-145 Serum or plasma potassium measurement (moles/volume) 3.8 mmol/L 3.6-5.0 Serum or plasma chloride measurement (moles/volume) 110 mmol/L 98-107 Carbon dioxide 19 mmol/L 21-32 Serum or plasma anion gap determination (moles/volume) 9 mmol/L 5-14 Serum or plasma urea nitrogen measurement (mass/volume ) 7 mg/dL 7-18 Serum or plasma creatinine measurement (mass/volume) 0.69 mg/dL 0.60-1.30 Serum or plasma urea nitrogen/creatinine mass ratio 10 NRG Serum or plasma creatinine measurement w ith calculation of estimated glomerular filtration rate > NRG Serum or plasma glucose measurement (mass/volume) 107 mg/dL 70-105 Serum or plasma calcium measurement (mass/volume) 8.5 mg/dL 8.5-10.1 Serum or plasma phosphate measurement (m ass/volume) - 03/04/16 06:19 Serum or plasma phosphate measurement (mass/volume) 3.7 mg/dL 2.3-4.7 Magnesium - 03/04/16 06:19 Magnesium 2.3 mg/dL 1.8-2.4 Complete blood count (CBC) with automate d white blood cell (WBC) differential - 01/03/19 11:50 Blood leukocytes automated count (number/volume) 4.9 10*3/uL 4.3-11.0 Blood erythrocytes automated count (number/volume) 4.90 10*6/uL 4.35-5.85 Venous blood hemoglobin measurement (mass/volume) 15.8 g/dL 13.3-17.7 Blood hematocrit (volume fraction) 46 % 40-54 Automated erythrocyte mean corpuscular volume 95 [ foz_us] 80-99 Automated erythrocyte mean corpuscular h emoglobin (mass per erythrocyte) 32 pg 25-34 Automated erythrocyte mean corpuscular h emoglobin concentration measurement (mass/volume) 34 g/dL 32-36 Automated erythrocyte distribution width ratio 14. 5 % 10.0- 14.5 Automated blood platelet count (count/volume) 150 10*3/uL 130-400 Automated blood platelet mean volume measurement 10.2 [foz_us] 7.4-10.4 Automated blood neutrophils/100 leukocytes 65 % 42-75 Automated blood lymphocytes/100 leukocytes 23 % 12-44 Blood monocytes/100 leukocytes 11 % 0-12 Automated blood eosinophils/100 leukocytes 1 % 0-10 Automated blood basophils/100 leukocytes 0 % 0-10 Blood neutrophils automated count (number/volume) 3.2 10*3 1.8-7.8 Blood lymphocytes automated count (number/volume) 1.1 10*3 1.0-4.0 Blood monocytes automated count (number/volume) 0. 5 10*3 0.0-1.0 Automated eosinophil count 0.1 10*3/uL 0 .0-0.3 Automated blood basophil count (count/volume) 0.0 10*3/uL 0.0-0.1 Whole blood basic metabolic panel - 12/25 11:50 Serum or plasma sodium measurement (moles/volume) 143 mmol/L 135-145 Serum or plasma potassium measurement (moles/volume) 3.7 mmol/L 3.6-5.0 Serum or plasma chloride measurement (moles/volume) 111 mmol/L 98-107 Carbon dioxide 18 mmol/L 21-32 Serum or plasma anion gap determination (moles/volume) 14 mmol/L 5-14 Serum or plasma urea nitrogen measurement (mass/volume ) 10 mg/dL 7-18 Serum or plasma creatinine measurement (mass/volume) 0.71 mg/dL 0.60-1.30 Serum or plasma urea nitrogen/creatinine mass ratio 14 NRG Serum or plasma creatinine measurement w ith calculation of estimated glomerular filtration rate > NRG Serum or plasma glucose measurement (mass/volume) 104 mg/dL 70-105 Serum or plasma calcium measurement (mass/volume) 9.5 mg/dL 8.5-10.1 Encounters ACCT No. Visit Date/Time Discharge Status Pt. Type Provider Facility Loc./Unit Complaint [id number] 01/03/2019 08:55:00 01/03/2019 23:59:5 9 CLS Outpatient [facility] [id number] 02/15/2019 12:14:00 23:59:59 CLS Outpatient JAZLYN RAMIREZ MD [facility] RAD LT RENAL STONE [id number] 02/13/2019 14:54:00 14:54:00 CAN Outpatient LUCAS GAMEZ APRN [facility] LAB CBC, CMP [id number] 02/09/2019 08:31:00 23:59:59 CLS Outpatient JANE OKEEFE APRN [facility] RAD RLQ PAIN [id number] 02/05/2019 08:32:00 10:10:00 DIS Outpatient FAUZIA WALKER MD [facility] CATARACT LEFT EYE [id number] 01/29/2019 10:36:00 12:35:00 DIS Outpatient FAUZIA WALKER MD [facility] CATARACT RIGHT EYE [id number] 01/28/2019 05:30:00 15:04:00 DIS Outpatient FAUZIA WALKER MD [facility] PREOP CATARACT RIGHT EYE [id number] 01/03/2019 10:24:00 12:49:00 DIS Emergency INDERJIT DELGADO APRN [facility] ER BI LAT EYE WATERING, R EYE BLURRY [id number] 11/19/2018 06:32:00 23:59:59 CLS Outpatient PATRICIA GREENE MD [facility] CARD HTN,MR,OBESITY [id number] 11/10/2018 06:39:00 09:20:00 DIS Outpatient SUMMER SUTTON DO [facility] ENDO HX POLYPS/FAMILY HX COL ON CA [id number] 11/05/2018 15:50:00 15:52:00 DIS Outpatient SUMMER SUTTON DO [facility] PREOP COLONOSCOPY [id number] 10/29/2018 09:30:00 23:59:59 CLS Outpatient PATRICIA GREENE MD [facility] CARD HTN [id number] 10/05/2018 08:45:00 23:59:59 CLS Preadmit SWEET PAELDON R [facility] RAD BACK PAIN [id number] 09/14/2018 08:14:00 23:59:59 CLS Outpatient ARLETTE DONG F [facility] RAD LT KNEE PAIN,R/ O TMM [id number] 09/11/2018 13:53:00 23:59:59 CLS Preadmit JANE OKEEFE APRN [facility] RAD LOW BACK PAIN [id number] 09/06/2018 05:43:00 07:55:00 DIS Emergency MARCELL COPPOLA, CRYSTAL Lombardi [facility] ER CANT WALK [id number] 09/04/2018 14:17:00 23:59:59 CLS Outpatient JANE OKEEFE APRN [facility] RAD LEFT LEG PAIN, SWELLIN G, HX OF DVT [id number] 10/29/2017 12:38:00 018 23:59:59 CLS Outpatient INGRID DOSHI MD [facility] SDC ANEMIA [id number] 02/27/2016 12:11:00 017 12:09:00 DIS Inpatient INGRID DOSHI MD [facility] 4TH BILATERAL PULMONARY EMB OLISM [id number] 02/19/2016 09:47:00 016 11:12:00 DIS Emergency INDERJIT DELGADO APRN [facility] ER COLD SYMPTOMS [id number] 09/19/2015 09:43:00 016 12:50:00 DIS Outpatient SUMMER SUTTON DO [facility] BLOOD IN STOOL [id number] 09/14/2015 06:33:00 016 15:34:00 DIS Outpatient SUMMER SUTOTN DO [facility] PREOP BLOOD IN STOOL [id number] 12/26/2014 10:10:00 015 23:59:59 CLS Outpatient ZAIN GONZALES [facility] ONC [id number] 12/12/2014 10:56:00 015 23:59:59 CLS Outpatient NITA SCHROEDER [facility] ONC [id number] 10/24/2014 09:12:00 015 00:01:00 DIS Outpatient NITA SCHROEDER V [facility] ONC [id number] 11/10/2014 20:45:00 015 09:00:00 DIS Inpatient JUSTIN MORTON DO [facility] SURGICAL SMALL BOWEL OBSTRUCTION [id number] 06/16/2014 22:06:00 015 23:53:00 DIS Emergency SHAWNA OLIVIER DO [facility] ER HUMAN BITE, L LEG BRUIS ING [id number] 03/01/2014 07:34:00 23:59:59 CLS Outpatient MARYCRUZ ELMORE MD [facility] RAD ABDOMINAL ASCITIES [id number] 02/28/2014 09:51:00 23:59:59 CLS Outpatient MARYCRUZ ELMORE MD [facility] LAB ABD WOUND ACITIES [id number] 02/23/2014 17:36:00 19:27:00 DIS Emergency HERMELINDA MEJIAS DO [facility] ER POST OP SITE EVAL [id number] 02/12/2014 15:26:00 15:52:00 DIS Emergency ELDON MCQUEEN MD [facility] ER WOUND CHECK [id number] 01/21/2014 14:02:00 15:05:00 DIS Emergency INDERJIT DELGADO APRN [facility] ER BLISTER ON SURGICAL SIT E [id number] 12/27/2013 08:44:00 23:59:59 CLS Outpatient MARYCRUZ ELMORE MD [facility] LAB PULMONARY EMBOLISM [id number] 12/23/2013 10:52:00 23:59:59 CLS Outpatient MARYCRUZ ELMORE MD [facility] LAB PULM [id number] 12/17/2013 12:15:00 17:55:00 DIS Inpatient MARYCRUZ ELMORE MD [facility] SURGICAL STRICTURE [id number] 12/14/2013 11:06:00 23:59:59 CLS Outpatient MARYCRUZ ELMORE MD [facility] PREOP STRICTURE [id number] 12/14/2013 07:35:00 23:59:59 CLS Outpatient ALYSON COPPOLA FACC, SHAKEEL CHONG CC DS [facility] CARD CP [id number] 12/08/2013 10:20:00 23:59:59 CLS Outpatient MARYCRUZ ELMORE MD [facility] RAD COLON RESECTION [id number] 12/01/2013 09:00:00 12:22:00 DIS Outpatient MARYCRUZ ELMORE MD [facility] WOUNDCARE STOMA [id number] 11/11/2013 08:17:00 14:36:00 DIS Outpatient BRYCE FORD MD [facility] REHAB S/P HEMICOLECTOMY W/LEI LEWISAR PAIN/DECONDITIONING [id number] 11/11/2013 14:00:00 23:59:59 CLS Outpatient BRYCE FORD MD [facility] [address] ANTICOAG THERAPY [id number] 11/09/2013 08:06:00 23:59:59 CLS Outpatient BRYCE FORD MD [facility] LAB SEIZURES [id number] 11/04/2013 12:30:00 23:59:59 CLS Outpatient BRYCE FORD MD [facility] [address] ANTICOAG THERAPY, PULM ONARY EMBOLISM [id number] 11/02/2013 12:00:00 23:59:59 CLS Outpatient BRYCE FORD MD [facility] [address] ANTICOAG THERAPY, DILA NTIN THERAPY, SEIZURES [id number] 10/28/2013 08:30:00 23:59:59 CLS Outpatient BRYCE FORD MD [facility] [address] SEIZURES, ANTICOAG THE RAPY [id number] 10/21/2013 11:46:00 23:59:59 CLS Outpatient MARYCRUZ ELMORE MD [facility] LAB HYPOKALMIC [id number] 09/29/2013 08:23:00 13:29:00 DIS Outpatient BRYCE FORD MD [facility] REHAB CHRONIC LBP [id number] 10/17/2013 13:49:00 16:00:00 DIS Emergency REYNALDO GREGORY MD [facility] ER POST SURG REDNESS AROU ND PERCY [id number] 10/06/2013 10:00:00 10:55:00 DIS Inpatient MARYCRUZ ELMORE MD [facility] SURGICAL DIVERTICULITIS [id number] 09/29/2013 12:04:00 23:59:59 CLS Outpatient MARYCRUZ ELMORE MD [facility] PREOP DIVERTICULITIS [id number] 08/31/2013 07:34:00 23:59:59 CLS Outpatient MARYCRUZ ELMORE MD [facility] RAD DIVERTICULITIS [id number] 08/16/2013 07:09:00 10:15:00 DIS Outpatient MARYCRUZ ELMORE MD [facility] ABN CT SCAN [id number] 08/11/2013 07:20:00 23:59:59 CLS Outpatient MARYCRUZ ELMORE MD [facility] PREOP ABNORMAL CT SCAN [id number] 08/02/2013 09:43:00 23:59:59 CLS Outpatient MARYCRUZ ELMORE MD [facility] RAD SIGMOID DIVERT ABCESS [id number] 07/23/2013 08:59:00 23:59:59 CLS Outpatient MARYCRUZ ELMORE MD [facility] RAD SIGMOID DIVERTICULOSIS [id number] 01/16/2013 10:45:00 23:59:59 CLS Outpatient MARCELO ZAYAS APRN [facility] LAB SEIZURE D/O [id number] 12/10/2012 11:47:00 23:59:59 CLS Outpatient DEEPALI MOTA [facility] RAD R ANKLE PAIN,R ANKLE ED JUSTYN [id number] 03/02/2019 10:30:00 P MAR RAMIREZ MD, JAZLYN Graham [facility] LEFT RENAL STONE [id number] 12/12/2014 16:53:00 Document Registration [id number] 10/15/2013 10:35:00 Document Registration [id number] 01/12/2012 17:56:00 Document Registration [id number] 01/10/2012 08:43:00 Document Registration [id number] 12/02/2011 13:02:00 Document Registration [id number] 06/05/2011 06:39:00 Document Registration [id number] 03/29/2011 10:28:00 Document Registration [id number] 01/16/2011 07:16:00 Document Registration [id number] 06/27/2010 09:08:00 Document Registration [id number] 12/01/2009 10:42:00 Document Registration
[2019-03-09] MEDS ORDERED: NITR-65 PO (10:54)
== END 2019-01-29 12:35 | disposition home or self-care (01) ==
LOC: SDC 10:36
PROVIDERS: ATTEND Specialist
DX: H25.11 Age-related nuclear cataract, right eye (principal); I10 Essential (primary) hypertension; M19.90 Unspecified osteoarthritis, unspecified site; G62.9 Polyneuropathy, unspecified; F41.9 Anxiety disorder, unspecified; Z90.89 Acquired absence of other organs; Z79.899 Other long term (current) drug therapy; Z90.49 Acquired absence of other specified parts of digestive tract; Z83.511 Family history of glaucoma; Z80.0 Family history of malignant neoplasm of digestive organs

== ENCOUNTER 2019-02-05 08:32 | Day surgery (SDC) | payer BC ==
[~2019-02-05] VITALS: Ht 180.3 cm; Wt 130.0 kg
[~2019-02-05 08:32] MED LIST changes: +HYDR-3456 PO; -HYDR-3457 PO; +METO-387 PO; -MTP25TSR PO
[2019-02-05 08:42] VITALS: BP 135/83
[2019-02-05] MEDS ORDERED: LIDOCAINE PF 1% 2 ML AMP IR PRN (08:45)
[2019-02-05] MEDS ORDERED: TIMOLOL MALEATE 0.5% 5 ML (TIMOPTIC) BTL OU PRN (08:45)
[2019-02-05] MEDS ORDERED: POVIDONE (BETADINE) OPHTH SOLN 5% 30 ML OP ONE (08:45)
[2019-02-05] MEDS: TETRACAINE 0.5% OPHTH SOLN 4 ML BTL (SINGLE DOSE ONLY) OU PRN ×4 (08:45→09:14)
[2019-02-05] MEDS ORDERED: MOXIFLOXACIN OPHTH SOLN 5 MG/ML 0.3 ML SYRINGE OP ONE (08:45)
[2019-02-05] MEDS: CYCLOPENTOLATE 1% (CYCLOGYL) 2 ML DROPS OP SCH ×3 (09:01→09:14)
[2019-02-05] MEDS: PHENYLEPHRINE 10% OPHTH (NEO-SYN) 5 ML BTL OU SCH ×3 (09:01→09:14)
[2019-02-05] MEDS ORDERED: acetaZOLAMIDE ER 500 MG CAP (DIAMOX SEQUELS) PO ONE (09:30)
--- NOTE | 2019-02-05 09:39 | Ophthalmologist Pre-Op Note ---
Pre-Operative Progress Note H&P Reviewed The H&P was reviewed, patient examined and no changes noted. Date H&P Reviewed: Feb 05, 2019 Time H&P Reviewed: 09:39 Pre-Op Dx Cataract, Left Eye FAUZIA WALKER MD Feb 05, 2019 09:39 POS
[2019-02-05] MEDS ORDERED: MIDAZOLAM 2 MG/2 ML (VERSED) VIAL ONE (09:50)
--- NOTE | 2019-02-05 10:01 | Ophthalmology Operative Report ---
Cataract removal/placement IOL PREOPERATIVE DIAGNOSIS: Cataract Left Eye POSTOPERATIVE DIAGNOSIS: Cataract Left Eye PROCEDURE: Cataract removal and placement of posterior chamber implant, left eye SURGEON: Leonides Walker ANESTHESIA: Topical with sedation COMPLICATIONS: None ESTIMATED BLOOD LOSS: Minimal DESCRIPTION OF PROCEDURE: After proper informed consent was obtained, the patient, a 58 male, was taken to the Operating Room and the left eye was anesthetized with tetracaine. The left eye was then prepped and draped in the usual manner. A wire lid speculum was placed. A paracentesis was made at the left hand position. Preservative free lidocaine was injected into the anterior chamber followed by viscoelastic. A clear corneal incision was made in the temporal position. A capsulorrhexis was preformed and the central nuclear and cortical material were removed. The posterior capsule was polished and an Ish 13.5 AU00T0 was placed into the capsular bag. The residual viscoelastic was aspirated and balanced saline solution was injected into the anterior chamber. Moxifloxacin was injected into the anterior chamber. The wound was checked and found to be water tight. The patient tolerated the procedure well without complications. LEONIDES WALKER MD Feb 05, 2019 10:01 POS
[2019-02-05 10:10] VITALS: BP 121/72
--- NOTE | 2019-02-05 12:40 | Anesthesia-General Post-Op ---
MAC Patient Condition Mental Status/LOC: Same as Preop Cardiovascular: Satisfactory Nausea/Vomiting: Absent Respiratory: Satisfactory Pain: Controlled Complications: Absent Post Op Complications Complications None Follow Up Care/Instructions Patient Instructions None needed. Anesthesiology Discharge Order Discharge Order Patient is doing well, no complaints, stable vital signs, no apparent adverse anesthesia problems. No complications reported per nursing. CLAUDIA MURO CRNA Feb 05, 2019 12:40 POS
== END 2019-02-05 10:10 | disposition home or self-care (01) ==
LOC: SDC 08:32
PROVIDERS: ATTEND Specialist
DX: H25.12 Age-related nuclear cataract, left eye (principal); G62.9 Polyneuropathy, unspecified; I10 Essential (primary) hypertension; M19.90 Unspecified osteoarthritis, unspecified site; F41.9 Anxiety disorder, unspecified; Z90.89 Acquired absence of other organs; Z90.49 Acquired absence of other specified parts of digestive tract; Z79.899 Other long term (current) drug therapy; Z80.0 Family history of malignant neoplasm of digestive organs; Z83.511 Family history of glaucoma

== ENCOUNTER → 2019-02-09 | Outpatient (CLI) | payer BC ==
[~2019-02-09] MED LIST changes: +HOLD METFORMIN - RECEIVED CONTRAST 20 ML VIAL IV SCH; +IOHEXOL 350 MG/ML 100 ML (OMNIPAQUE 350) VIAL IV ONE; +NS 100 ML (IVPB) BAG IV ONE
--- NOTE | 2019-02-09 10:46 | Diagnostic Imaging Report ---
CT ABDOMEN/PELVIS W TECHNIQUE: Multiple contiguous axial images were obtained through the abdomen and pelvis after administration of intravenous contrast. All CT scans use one or more of the following dose optimizing techniques: automated exposure control, MA and/or KvP adjustment based on a patient size and exam type, or iterative reconstruction. INDICATION: Right lower quadrant pain. COMPARISON: CT abdomen of 08/31/2013 FINDINGS: Lower chest: The lung bases are clear. No pericardial or pleural effusion. Peritoneum: No free intraperitoneal air or fluid. Liver and biliary system: The liver is normal. The gallbladder is normal. No biliary duct dilation. Spleen and Pancreas: Spleen is normal. The pancreas enhances normally without mass lesion or peripancreatic inflammatory changes. Adrenals: Stable 1.9 cm right adrenal nodule that given long-term stability is likely a benign adenoma. No left adrenal nodule. tract: The kidneys enhance normally without suspicious mass or obstruction. There is a 7 mm nonobstructing stone in the upper pole of the left kidney. No ureteral stones on either side. Urinary bladder is decompressed, limiting assessment for wall thickening. Prostate is not enlarged. GI tract: Stomach is decompressed. No bowel obstruction. No pericolonic inflammatory changes. There is an anastomotic staple line in the sigmoid colon. Additionally, there is a small bowel-small bowel anastomosis in the right lower quadrant. Appendectomy has been performed. Vasculature and Lymph nodes: Normal caliber aorta. No abdominal or pelvic lymphadenopathy. Musculoskeletal: No concerning osseous lesion. Posterior instrumented fusion at L5-S1 with discectomy is noted. Large vertebral body hemangioma at T12. IMPRESSION: 1. No acute colitis or diverticulitis. 2. Surgical anastomoses in the small bowel of the right lower quadrant and sigmoid colon show no features of obstruction. 3. Appendectomy. 4. Stable benign right adrenal nodule. 5. Nonobstructing 7 mm left renal stone. Dictated by: Dictated on workstation # [id number]
== END ==
LOC: RAD 08:31
PROVIDERS: ATTEND Nurse Practitioner Family
DX: E27.9 Disorder of adrenal gland, unspecified (principal); N20.0 Calculus of kidney; Z90.89 Acquired absence of other organs
CPT/HCPCS: 74177

== ENCOUNTER → 2019-02-15 | Outpatient (CLI) | payer BC ==
[~2019-02-15] MED LIST changes: -HOLD METFORMIN - RECEIVED CONTRAST 20 ML VIAL IV SCH; -IOHEXOL 350 MG/ML 100 ML (OMNIPAQUE 350) VIAL IV ONE; -NS 100 ML (IVPB) BAG IV ONE
--- NOTE | 2019-02-15 12:44 | Diagnostic Imaging Report ---
INDICATION: Nephrolithiasis. FINDINGS: The bowel gas pattern is nonspecific. There is a 7 mm well-circumscribed stone projected over the left kidney. There are postoperative changes of the lower lumbar spine. There are no other abnormal calcifications. IMPRESSION: A 7 mm nonobstructing stone overlying the left kidney. Dictated by: Dictated on workstation # [id number]
== END ==
LOC: RAD 12:14
PROVIDERS: ATTEND Urology
DX: N20.0 Calculus of kidney (principal)
CPT/HCPCS: 74018

== ENCOUNTER 2019-03-01 14:30 | Outpatient (CLI) | payer BC ==
[~2019-03-01] VITALS: Ht 180.3 cm; Wt 126.4 kg
[2019-03-02] MEDS ORDERED: TRM50T PO (10:12)
[2019-03-02] MEDS ORDERED: NITR-65 PO (10:12)
== END 2019-03-01 14:53 | disposition home or self-care (01) ==
LOC: PREOP 14:30
PROVIDERS: ATTEND Urology
DX: Z01.818 Encounter for other preprocedural examination (principal)

== ENCOUNTER 2019-03-02 07:13 | Day surgery (SDC) | payer BC ==
[2019-03-02] VITALS (11 sets, daily range): BP systolic 127–150; BP diastolic 87–104
[2019-03-02] MEDS ORDERED: WATER (STERILE) FOR INJECTION 10 ML ONE (07:25)
[2019-03-02] MEDS ORDERED: cefTRIAXone 1,000 MG IV (ROCEPHIN) VIAL ONE (07:25)
--- NOTE | 2019-03-02 07:44 | Diagnostic Imaging Report ---
INDICATION: Status post lithotripsy. COMPARISON: 02/15/2019. FINDINGS: There remains a 7 mm stone overlying the upper pole of the left kidney. No new soft tissue mineralizations are appreciated. No obstructive bowel gas pattern. Stable postoperative changes. IMPRESSION: Stable 7 mm stone overlying the upper pole of the left kidney. Dictated by: Dictated on workstation # [id number]
[2019-03-02] MEDS ORDERED: cefTRIAXone FOR IV USE 1,000 MG in WATER (STERILE) FOR INJECTION 10 ML IV ONE ×2 (07:45→08:15)
[2019-03-02] MEDS ORDERED: LACTATED RINGERS 1,000 ML IV PRN (08:03)
--- NOTE | 2019-03-02 08:04 | Progress Note-Pre Operative ---
Pre-Operative Progress Note H&P Reviewed The H&P was reviewed, patient examined and no changes noted. Date Seen by Provider: Mar 02, 2019 Time Seen by Provider: 08:04 Date H&P Reviewed: Mar 02, 2019 Time H&P Reviewed: 08:04 Pre-Operative Diagnosis: LT RENAL STONE JAZLYN RAMIREZ MD Mar 02, 2019 08:04
[2019-03-02] MEDS ORDERED: MIDAZOLAM 2 MG/2 ML (VERSED) VIAL ONE (08:19)
[2019-03-02] MEDS ORDERED: proPOfol 200 MG/20 ML (DIPRIVAN) VIAL IV ONE (08:19)
[2019-03-02] MEDS ORDERED: fentaNYL INJECTION 100 MCG/2 ML AMP ONE (08:19)
[2019-03-02] MEDS ORDERED: DEXAMETHASONE 10 MG/ML (DECADRON) 1 ML VIAL ONE (08:19)
[2019-03-02] MEDS ORDERED: ONDANSETRON 4 MG/2 ML (SDV) Z0FRAN ONE (08:19)
[2019-03-02] MEDS ORDERED: LIDOCAINE PF 2% 5 ML (XYLOCAINE) VIAL ONE (08:19)
[2019-03-02] MEDS ORDERED: SEVOFLURANE (ULTANE) 15 ML INHAL SOLN ONE (08:32)
[2019-03-02] MEDS ORDERED: ONDANSETRON 4 MG/2 ML (SDV) Z0FRAN IVP PRN (08:45)
[2019-03-02] MEDS ORDERED: morphine INJ 10 MG/ML 1ML (SYR OR VIAL) IVP ONE (08:45)
--- NOTE | 2019-03-02 09:01 | Progress Note-Post Operative ---
Post-Operative Progess Note Surgeon (s)/Glass Products Inspector (s) Surgeon JAZLYN RAMIREZ MD Glass Products Inspector: NONE Pre-Operative Diagnosis LT RENAL STONE Post-Operative Diagnosis SAME Procedure & Operative Findings Date of Procedure 03/02/19 Procedure Performed/Findings LT ESWL Anesthesia Type GENERAL Estimated Blood Loss Estimated blood loss (mL): NONE Specimens/Packing Specimens Removed NONE Packing: NONE JAZLYN RAMIREZ MD Mar 02, 2019 09:01
--- NOTE | 2019-03-02 09:04 | Discharge Inst-Urology ---
Discharge Inst-Urology Reconcile Patient Problems Problems Reviewed?: Yes Final Diagnosis LT RENAL STONE Patient Instructions/Follow Up Plan/Assessment/Instructions Please make appointment to been seen in office Wednesday 03/08, KUB prior to it. KUB on way home Post ESWL instructions Stay off ASA and Xarelto Increase oral fluids for 48 hours and then as needed. Diet and Activity as tolerated. If questions or concerns contact your physician Or seek help at emergency department. JAZLYN RAMIREZ MD Mar 02, 2019 09:04
[2019-03-02] MEDS ORDERED: FUROSEMIDE 40 MG/4 ML INJ (LASIX) ONE (09:06)
[2019-03-02] MEDS ORDERED: KETOROLAC 30 MG/ML VIAL ONE (09:06)
[2019-03-02] MEDS ORDERED: NITR-65 PO (10:12)
[2019-03-02] MEDS ORDERED: TRM50T PO (10:12)
--- NOTE | 2019-03-02 10:30 | NUR ---
TO RADIOLOGY PER W/C, THEN BACK TO ROOM. VOIDS AGAIN, HAS VOIDED 1225CC PINK URINE. 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
--- NOTE | 2019-03-02 10:57 | NUR ---
SELF DRESSES BACK IN STREET CLOTHES PREPARING TO GO OVER DISCHARGE INSTRUCTIONS
--- NOTE | 2019-03-02 11:50 | Anesthesia-General Post-Op ---
General Patient Condition Mental Status/LOC: Same as Preop Cardiovascular: Satisfactory Nausea/Vomiting: Absent Respiratory: Satisfactory Pain: Controlled Complications: Absent Post Op Complications Complications None Follow Up Care/Instructions Patient Instructions None needed. Anesthesia/Patient Condition Patient Condition Patient is doing well, no complaints, stable vital signs, no apparent adverse anesthesia problems. No complications reported per nursing. DIDI STERN CRNA Mar 02, 2019 11:50
--- NOTE | 2019-03-02 13:00 | Diagnostic Imaging Report ---
History: Postop lithotripsy COMPARISON: 03/02/2019 TECHNIQUE: Frontal view of the abdomen FINDINGS: Redemonstrated is a left renal calculus which is unchanged in size in the superior pole of the left kidney. A phlebolith is again seen in the pelvis. Lumbar fusion hardware is noted. Multiple surgical clips are seen in the lower abdomen. No dilated loops of small bowel are seen. There is no large collection of free air. IMPRESSION: 1. Stable left renal calculus. No acute abnormality is seen. Dictated by: Dictated on workstation # [id number]
--- NOTE | 2019-03-02 13:35 | OPERATIVE REPORT ---
DATE OF SERVICE: 03/02/2019 PREOPERATIVE DIAGNOSIS: Left renal stone. POSTOPERATIVE DIAGNOSIS: Left renal stone. OPERATION PERFORMED: Left ESWL. SURGEON: Oscar Ramirez MD ANESTHESIA: General. COMPLICATIONS: None. DESCRIPTION OF PROCEDURE: Under satisfactory general anesthesia, the patient in supine position on the ESWL table, the left renal stone was localized. Shocks were delivered at kV of 6 and a total of 3000 shocks nicely fragmented the stone. The patient received 40 mg of Lasix and 30 mg of Toradol IV at the end of the procedure. He tolerated the procedure and anesthesia well and was sent to recovery room in stable condition. PLAN: We will see him back next Friday at the office, check his KUB. If he needs another ESWL, we will do it next Friday. We will keep him off the Xarelto and aspirin. Job ID: [id number] DocumentID: [id number] Dictated Date: 03/02/2019 09:06:47 Warehouse Order Puller Date: 03/02/2019 13:34:04 Dictated By: OSCAR RAMIREZ MD
== END 2019-03-02 11:45 | disposition home or self-care (01) ==
LOC: SDC 07:13
PROVIDERS: ATTEND Urology
DX: N20.0 Calculus of kidney (principal); I10 Essential (primary) hypertension; K21.9 Gastro-esophageal reflux disease without esophagitis; F41.9 Anxiety disorder, unspecified; G40.909 Epilepsy, unspecified, not intractable, without status epilepticus; E66.9 Obesity, unspecified; Z68.38 Body mass index [BMI] 38.0-38.9, adult; Z79.899 Other long term (current) drug therapy; Z82.49 Family history of ischemic heart disease and other diseases of the circulatory system; Z80.0 Family history of malignant neoplasm of digestive organs
CPT/HCPCS: 74018; 87081

== ENCOUNTER → 2019-03-08 | Outpatient (CLI) | payer BC ==
[~2019-03-08] MED LIST changes: -HYDR-3456 PO; +HYDR-3457 PO; -METO-387 PO; +MTP25TSR PO; +NITR-65 PO; +TRM50T PO
== END | disposition home or self-care (01) ==
LOC: PREOP 05:30
PROVIDERS: ATTEND Urology
DX: Z01.818 Encounter for other preprocedural examination (principal)

== ENCOUNTER → 2019-03-08 | Outpatient (CLI) | payer BC ==
--- NOTE | 2019-03-08 13:48 | Diagnostic Imaging Report ---
INDICATION: Follow-up left renal stone. TIME OF EXAM: 1:12 p.m. COMPARISON: Correlation is made with abdominal radiograph from 03/02/2019. FINDINGS: Surgical clips in the right abdomen are noted. Calculus overlying the upper pole left renal shadow is again noted and unchanged from prior exam. There are postsurgical changes in the right left lower quadrant as well. No definite radiopaque ureteral calculi are detected. Postop changes in the lower lumbar spine are noted. IMPRESSION: Stable left renal calculus when compared with examination from 03/02/2019. Dictated by: Dictated on workstation # [id number]
== END ==
LOC: RAD 12:51
PROVIDERS: ATTEND Urology
DX: N20.0 Calculus of kidney (principal)
CPT/HCPCS: 74018

== ENCOUNTER 2019-03-09 07:51 | Day surgery (SDC) | payer BC ==
[2019-03-09] VITALS (10 sets, daily range): BP systolic 130–139; BP diastolic 81–94
[~2019-03-09] VITALS: Ht 180 cm; Wt 126.4 kg
[2019-03-09] MEDS ORDERED: cefTRIAXone FOR IV USE 1,000 MG in WATER (STERILE) FOR INJECTION 10 ML IV ONE (08:00)
--- NOTE | 2019-03-09 08:06 | Progress Note-Pre Operative ---
Pre-Operative Progress Note H&P Reviewed The H&P was reviewed, patient examined and no changes noted. Date Seen by Provider: Mar 09, 2019 Time Seen by Provider: 08:06 Date H&P Reviewed: Mar 09, 2019 Time H&P Reviewed: 08:06 Pre-Operative Diagnosis: LT RENAL STONE JAZLYN RAMIREZ MD Mar 09, 2019 08:06
[2019-03-09] MEDS ORDERED: CATHETER FLUSH 10 ML SYR IV PRN (08:15)
[2019-03-09] MEDS: LACTATED RINGERS 1,000 ML IV PRN ×2 (08:39→09:55)
[2019-03-09] MEDS ORDERED: fentaNYL INJECTION 100 MCG/2 ML AMP ONE (08:46)
[2019-03-09] MEDS ORDERED: MIDAZOLAM 2 MG/2 ML (VERSED) VIAL ONE (08:46)
[2019-03-09] MEDS ORDERED: ONDANSETRON 4 MG/2 ML (SDV) Z0FRAN ONE (09:06)
[2019-03-09] MEDS ORDERED: KETOROLAC 30 MG/ML VIAL ONE (09:06)
[2019-03-09] MEDS ORDERED: proPOfol 200 MG/20 ML (DIPRIVAN) VIAL IV ONE (09:06)
[2019-03-09] MEDS ORDERED: LIDOCAINE PF 2% 5 ML (XYLOCAINE) VIAL ONE (09:06)
[2019-03-09] MEDS ORDERED: DEXAMETHASONE 10 MG/ML (DECADRON) 1 ML VIAL ONE (09:06)
[2019-03-09] MEDS ORDERED: FUROSEMIDE 40 MG/4 ML INJ (LASIX) ONE (09:06)
--- NOTE | 2019-03-09 09:19 | Progress Note-Post Operative ---
Post-Operative Progess Note Surgeon (s)/Gill Box Tender (s) Surgeon JAZLYN RAMIREZ MD Gill Box Tender: NONE Pre-Operative Diagnosis LT RENAL STONE Post-Operative Diagnosis SAME Procedure & Operative Findings Date of Procedure 03/09/19 Procedure Performed/Findings LT ESWL Anesthesia Type GENERAL Estimated Blood Loss Estimated blood loss (mL): NONE Specimens/Packing Specimens Removed NONE Packing: NONE JAZLYN RAMIREZ MD Mar 09, 2019 09:19
--- NOTE | 2019-03-09 09:22 | Discharge Inst-Urology ---
Discharge Inst-Urology Reconcile Patient Problems Problems Reviewed?: Yes Final Diagnosis LT RENAL STONE Patient Instructions/Follow Up Plan/Assessment/Instructions Please make appointment to been seen in office in 4 weeks. KUB prior to it In 72 hours, if no bleeding, may resume ASA and Xarelto KUB on way home Post ESWL instructions Increase oral fluids for 48 hours and then as needed. Diet and Activity as tolerated. If questions or concerns contact your physician Or seek help at emergency department. JAZLYN RAMIREZ MD Mar 09, 2019 09:22
--- NOTE | 2019-03-09 09:44 | Diagnostic Imaging Report ---
Supine abdomen at 827h. INDICATION: Nephrolithiasis The 6.9 mm calculus overlying the left renal contour seen on the prior exam of 03/08/2019 is again evident and unchanged in size or position. There is also a small calcific density low in the pelvis on the left. This too is stable compared to the present exam. There are no other pathological calcifications evident. The surgical clips and sutures seen previously are again identified and stable. The orthopedic hardware securing the lower lumbar spine is also no different. IMPRESSION: 1. The calculus overlying the left kidney and the small calculus along the pelvis and left seen previously are again evident and no different. 2. Reportedly, ESWL is pending. Dictated by: Dictated on workstation # [id number]
[2019-03-09] MEDS ORDERED: morphine INJ 10 MG/ML 1ML (SYR OR VIAL) IVP ONE (10:00)
[2019-03-09] MEDS ORDERED: ONDANSETRON 4 MG/2 ML (SDV) Z0FRAN IVP PRN (10:00)
[2019-03-09] MEDS ORDERED: NITR-65 PO ×2 (10:54)
--- NOTE | 2019-03-09 10:55 | Anesthesia-General Post-Op ---
General Patient Condition Mental Status/LOC: Same as Preop Cardiovascular: Satisfactory Nausea/Vomiting: Absent Respiratory: Satisfactory Pain: Controlled Complications: Absent Post Op Complications Complications None Follow Up Care/Instructions Patient Instructions None needed. Anesthesia/Patient Condition Patient Condition Patient is doing well, no complaints, stable vital signs, no apparent adverse anesthesia problems. ANETTE MCKINNEY DO Mar 09, 2019 10:55
--- NOTE | 2019-03-09 12:07 | Diagnostic Imaging Report ---
REASON FOR EXAM: POST ESWL COMPARISON: 03/09/2019 at 8:27 a.m. TECHNIQUE: frontal supine views of the abdomen FINDINGS: The previously noted focal calcification overlying the left kidney appears fragmented. No other focal calcifications are seen to suggest additional renal calculi. The bowel gas pattern is nonobstructive. A moderate amount of stool is seen in the abdomen and pelvis. No large collections of free intraperitoneal air. No acute osseous abnormalities. IMPRESSION: Fragmentation of the previously noted renal calculi on the left status post ESWL. Dictated by: Dictated on workstation # [id number]
--- NOTE | 2019-03-09 15:09 | OPERATIVE REPORT ---
DATE OF SERVICE: 03/09/2019 PREOPERATIVE DIAGNOSIS: Left renal stone. POSTOPERATIVE DIAGNOSIS: Left renal stone. OPERATION PERFORMED: Left ESWL. SURGEON: Oscar Ramirez MD ANESTHESIA: General. COMPLICATIONS: None. DESCRIPTION OF PROCEDURE: Under satisfactory general anesthesia, the patient in supine position on the ESWL table, the left renal stone was localized. Shocks were delivered at kV of 6. Total of 3000 shocks fragmented the stone very nicely. The patient received 30 mg of Toradol and 40 mg of Lasix IV. He tolerated the procedure and anesthesia well and was sent to recovery room in stable condition. Job ID: [id number] DocumentID: [id number] Dictated Date: 03/09/2019 09:34:25 Bulk Receiver Date: 03/09/2019 15:09:11 Dictated By: OSCAR RAMIREZ MD
== END 2019-03-09 11:30 | disposition home or self-care (01) ==
LOC: SDC 07:51
PROVIDERS: ATTEND Urology
DX: N20.0 Calculus of kidney (principal); Z11.2 Encounter for screening for other bacterial diseases; K21.9 Gastro-esophageal reflux disease without esophagitis; G40.909 Epilepsy, unspecified, not intractable, without status epilepticus; Z98.1 Arthrodesis status; Z79.899 Other long term (current) drug therapy; N40.0 Benign prostatic hyperplasia without lower urinary tract symptoms; Z79.01 Long term (current) use of anticoagulants; K57.90 Diverticulosis of intestine, part unspecified, without perforation or abscess without bleeding; M19.91 Primary osteoarthritis, unspecified site; J30.2 Other seasonal allergic rhinitis; I10 Essential (primary) hypertension; Z86.718 Personal history of other venous thrombosis and embolism; Z86.711 Personal history of pulmonary embolism
CPT/HCPCS: 74018; 87081

== ENCOUNTER 2019-03-17 05:50 | Outpatient (CLI) | payer BC ==
[~2019-03-17] VITALS: Ht 180 cm; Wt 126.4 kg
== END 2019-03-17 13:02 | disposition home or self-care (01) ==
LOC: PREOP 05:50
PROVIDERS: ATTEND Specialist
DX: Z01.818 Encounter for other preprocedural examination (principal)

== ENCOUNTER 2019-03-19 08:29 | Day surgery (SDC) | payer BC ==
[~2019-03-19] VITALS: Ht 180 cm; Wt 126.4 kg
[2019-03-19 08:35] VITALS: BP 135/85
[2019-03-19] MEDS: TETRACAINE 0.5% OPHTH SOLN 4 ML BTL (SINGLE DOSE ONLY) OU PRN ×2 (09:06→09:16)
[2019-03-19] MEDS: PHENYLEPHRINE 10% OPHTH (NEO-SYN) 5 ML BTL OU PRN ×2 (09:13→09:16)
[2019-03-19] MEDS: TROPICAMIDE 1% OPH SOLN (MYDRIACYL) 15 ML BTL OU PRN ×2 (09:13→09:16)
[2019-03-19 09:30] VITALS: BP 135/85
--- NOTE | 2019-03-19 09:34 | Ophthalmology Operative Report ---
YAG Capsulotomy PREOPERATIVE DIAGNOSIS: Secondary Cataract Right Eye POSTOPERATIVE DIAGNOSIS: Secondary Cataract Right Eye PROCEDURE: YAG Capsulotomy, right eye SURGEON: Leonides Walker ANESTHESIA: Topical anesthesia COMPLICATIONS: None ESTIMATED BLOOD LOSS: Minimal DESCRIPTION OF PROCEDURE: After proper informed consent was obtained, the patient's, a 58 male, right eye received one drop of Tropicamide and one drop of Tetracaine. The patient was then placed at the YAG laser and using a power of [3.1 ] millijoules and [ 29] bursts were used to fashion a central capsulotomy. The patient tolerated the procedure well without complications. LEONIDES WALKER MD Mar 19, 2019 09:34
--- NOTE | 2019-03-19 09:34 | Ophthalmologist Pre-Op Note ---
Pre-Operative Progress Note H&P Reviewed The H&P was reviewed, patient examined and no changes noted. Date H&P Reviewed: Mar 19, 2019 Time H&P Reviewed: 09:26 Pre-Op Dx Secondary Cataract, Right Eye FAUZIA WALKER MD Mar 19, 2019 09:34
[2019-03-19 10:14] VITALS: BP 135/85
== END 2019-03-19 09:30 | disposition home or self-care (01) ==
LOC: SDC 08:29
PROVIDERS: ATTEND Specialist
DX: H26.491 Other secondary cataract, right eye (principal); F41.9 Anxiety disorder, unspecified; M19.90 Unspecified osteoarthritis, unspecified site; Z90.89 Acquired absence of other organs; Z79.899 Other long term (current) drug therapy; Z80.0 Family history of malignant neoplasm of digestive organs; Z83.511 Family history of glaucoma

== ENCOUNTER → 2019-04-06 | Outpatient (CLI) | payer BC ==
--- NOTE | 2019-04-06 11:19 | Diagnostic Imaging Report ---
INDICATION: Ureteral stone. Comparison made with prior examination 03/09/2019. FINDINGS: There are surgical clips in the right lower quadrant and right upper quadrant. There are postsurgical changes in lumbar spine. Bowel gas pattern is nonspecific. There are surgical clips in left lower quadrant. No definite stones are appreciated. IMPRESSION: Nonspecific bowel gas pattern. No definitive ureteral stones. Dictated by: Dictated on workstation # [id number]
== END ==
LOC: RAD 10:54
PROVIDERS: ATTEND Urology
DX: N20.1 Calculus of ureter (principal)
CPT/HCPCS: 74018

== ENCOUNTER 2021-03-08 12:43 | Outpatient (RCR) | payer BC ==
[~2021-03-08 12:43] MED LIST changes: -PANT40TA3 PO; +PANT40TA52 PO
== END 2021-03-26 | disposition home or self-care (01) ==
LOC: LAB 12:43
PROVIDERS: ATTEND Surgery
DX: R19.7 Diarrhea, unspecified (principal)
CPT/HCPCS: 87015; 87045; 87046; 87328; 87329; 87449; 87899

== ENCOUNTER 2022-02-20 17:47 | Emergency (ER) | payer BC ==
[~2022-02-20] VITALS: Ht 180.3 cm; Wt 158.7 kg
[2022-02-20 18:51] LABS: BASOPHILS # (AUTO) 0.1 10^3/uL (0.0-0.1); BASOPHILS % (AUTO) 1 % (0-10); EOSINOPHILS # (AUTO) 0.1 10^3/uL (0.0-0.3); EOSINOPHILS % (AUTO) 1 % (0-10); HEMATOCRIT 46 % (40-54); HEMOGLOBIN 15.7 g/dL (13.3-17.7); LYMPHOCYTES % (AUTO) 25 % (12-44); MEAN CORPUSCULAR HEMOGLOBIN 33 pg (25-34); MEAN CORPUSCULAR HGB CONC 34 g/dL (32-36); MEAN CORPUSCULAR VOLUME 98 fL (80-99); MEAN PLATELET VOLUME 9.8 fL (9.0-12.2); MONOCYTES # (AUTO) 0.7 10^3/uL (0.0-1.0); MONOCYTES % (AUTO) 9 % (0-12); NEUTROPHILS # (AUTO) 5.2 10^3/uL (1.8-7.8); NEUTROPHILS % (AUTO) 64 % (42-75); PLATELET COUNT 185 10^3/uL (130-400)
[2022-02-20 18:54] LABS: ALBUMIN 3.8 GM/DL (3.2-4.5); CHLORIDE 109 MMOL/L (98-107); SODIUM 139 MMOL/L (135-145)
[2022-02-20 18:56] LABS: GLUCOSE 97 MG/DL (70-105); TOTAL PROTEIN 7.6 GM/DL (6.4-8.2)
[2022-02-20 18:57] LABS: CARBON DIOXIDE 22 MMOL/L (21-32); FIBRIN DEGRADATION PRODUCTS 0.51 UG/ML (0.00-0.49); PROTHROMBIN TIME PATIENT 13.2 SEC (12.2-14.7)
[2022-02-20 18:58] LABS: BILIRUBIN,TOTAL 0.5 MG/DL (0.1-1.0)
[2022-02-20 19:00] LABS: ALKALINE PHOSPHATASE 107 U/L (40-136); CREATININE SERUM 0.86 MG/DL (0.60-1.30); GFR ESTIMATED 99
[2022-02-20 19:01] LABS: BUN/CREATININE RATIO 15
[2022-02-20 19:03] LABS: ALANINE AMINOTRANSFERASE 27 U/L (0-55); MAGNESIUM 2.2 MG/DL (1.6-2.4)
--- NOTE | 2022-02-20 19:05 | Diagnostic Imaging Report ---
EXAMINATION: Chest 1 view HISTORY: HTN, DYSPNEA COMPARISON: None available. FINDINGS: Heart size and pulmonary vasculature are normal. The lungs are clear without consolidation, pleural effusion, or pneumothorax. The osseous structures are intact. IMPRESSION: 1. No acute radiographic abnormality in the chest. Dictated by: Dictated on workstation # [id number]
[2022-02-20 19:06] LABS: BILIRUBIN,URINE NEGATIVE (NEGATIVE); CLARITY,URINE SL CLOUDY; COLOR,URINE ORANGE; GLUCOSE, URINE (UA) NEGATIVE (NEGATIVE); KETONES,URINE NEGATIVE (NEGATIVE); LEUKOCYTE ESTERASE ,URINE NEGATIVE (NEGATIVE); NITRITE,URINE NEGATIVE (NEGATIVE); PH,URINE 5.5 (5-9); PROTEIN,URINE NEGATIVE (NEGATIVE)
[2022-02-20 19:10] LABS: CREATINE KINASE MB 0.6 NG/ML (<6.6)
--- NOTE | 2022-02-20 19:10 | ED General ---
General Chief Complaint: Cardiac/General Problems Stated Complaint: SOA Nursing Triage Note: PT AMB TO TRIAGE WITH COMPLAINT HYPERTENSION AND SOA. STATES HE WENT TO [facility] DENTAL TODAY AND HIS BLOOD PRESSURE WAS ELEVATED. SENT TO WALK IN CLINIC TO BE EVALUATED. PT HAS HX OF PEs, WALK IN CLINIC WANTED HIM TO BE EVALUATED BY THE ER. STATES HE TAKES XARELTO AND BABY ASPIRIN DAILY. STATES HIS JOB AND GOING TO THE DENTIST HAS BEEN STRESSFUL. Source of Information: Patient History of Present Illness Date Seen by Provider: Feb 20, 2022 Time Seen by Provider: 18:29 Initial Comments PT ARRIVES VIA POV WITH MOTHER--SENT HERE FROM [facility]IC STATES HE WENT TO DENTAL CLINIC FOR ROUTINE DENTAL CLEANING, AND THEY CHECKED HIS BLOOD PRESSURE AND IT WAS 190/110, AND RECHECKED IT 10 MINUTES LATER AND IT WAS 138/87--CHECKED BY SOMEONE ELSE. HE HAD AN EKG DONE AT THE DENTIST OFFICE ( WAS ACTUALLY DONE AT [facility] WALK IN [facility]INIC) AND THEN WAS SENT HERE. HE DID NOT HAVE HIS TEETH CLEANED PT STATES HIS PULSE WAS 78 AND HIS O2 SAT WAS NORMAL PT DENIES ANY COMPLAINTS NO CHEST PAIN NO SHORTNESS OF BREATH NO PALPITATIONS NO NEW SWELLING IN LEGS/ FEET OR PAIN IN CALVES NO FEVER OR RECENT ILLNESS NO HEADACHE NO DIZZINESS NO VISION CHANGES NO PARESTHESIAS OR MOTOR DEFICITS PT HAS HISTORY OF P.E.'S AND IS ON XARELTO AND ASPIRIN. HE HAS HISTORY OF HTN AND HYPERLIPIDEMIA. 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 PCP: DR. DOSHI Allergies and Home Medications Allergies Coded Allergies: No Known Drug Allergies (Verified , 12/23/06) Patient Home Medication List Home Medication List Reviewed: Yes Atorvastatin Calcium (Atorvastatin Calcium) 10 Mg Tablet, 10 MG PO HS, (Reported) Entered as Reported by: BRANDON BAKER on 11/05/18 1550 Cyclobenzaprine HCl (Cyclobenzaprine HCl) 5 Mg Tablet, 5 MG PO TID PRN for MU SCLE SPASMS, (Reported) Entered as Reported by: BRANDON BAKER on 11/05/18 1550 Lactobacillus Combo No.11 (Probiotic) 1 Each Cap.emmie, 1 CAP PO BID, (Reported) Entered as Reported by: MAURY SHELTON on 11/10/14 1926 Metoprolol Succinate (Metoprolol Succinate) 25 Mg Tab.er.24h, 25 MG PO DAILY, (Reported) Entered as Reported by: BRANDON BAKER on 11/05/18 1550 Nitrofurantoin Monohyd/M-Cryst (Macrobid 100 mg Capsule) 100 Mg Capsule, 1 TAB PO BID Prescribed by: JUSTICE ROLDAN on 03/02/19 1012 Nitrofurantoin Monohyd/M-Cryst (Macrobid 100 mg Capsule) 100 Mg Capsule, 1 TAB PO BID Prescribed by: CHAS FREITAS on 03/09/19 1054 Pantoprazole Sodium (Pantoprazole Sodium) 40 Mg Tablet.dr, 40 MG PO BID, (Repo rted) Entered as Reported by: BRANDON BAKER on 11/05/18 1550 Phenytoin Sodium Extended (Phenytek) 300 Mg Capsule, 300 MG PO HS, (Reported) Entered as Reported by: MARINA KELLEY on 11/11/14 1022 Phenytoin Sodium Extended (Phenytek) 200 Mg Capsule, 400 MG PO HS, (Reported) Entered as Reported by: BALJEET FLOWER on 02/27/16 1419 Tramadol HCl (Tramadol HCl) 50 Mg Tablet, 50-100 MG PO Q4H Prescribed by: JUSTICE ROLDAN on 03/02/19 1012 Review of Systems Review of Systems Constitutional: no symptoms reported; No chills, No diaphoresis, No dizziness, No fever EENTM: no symptoms reported; No blurred vision, No double vision Respiratory: no symptoms reported; No cough, No short of breath Cardiovascular: no symptoms reported; No chest pain, No palpitations, No syncope Gastrointestinal: no symptoms reported Genitourinary: no symptoms reported Musculoskeletal: no symptoms reported Skin: no symptoms reported Psychiatric/Neurological: Anxiety; Denies Headache, Denies Numbness, Denies Paresthesia, Denies Seizure, Denies Tingling, Denies Weakness Hematologic/Lymphatic: See HPI, Blood Clots Immunological/Allergic: no symptoms reported Past Emeanvr-Hxuzge-Kqvtjk Hx Patient Social History Tobacco Use?: No Smoking Status: Never a Smoker Smokeless Tobacco Frequency: Never a User Use of E-Cig and/or Vaping dev: No Use of E-Cig and/or Vaping Bharat: Never a User Substance use?: No Alcohol Use?: No Pt feels they are or have been: No Immunizations Up To Date Tetanus Booster (TDap): More than 5yrs Seasonal Allergies Seasonal Allergies: Yes Past Medical History Surgeries: Yes (BOWEL RESECT/COLOSTOMY/REVERSAL,VENTRAL HERNIA, BACK,TENDON/HAND REPAIR ) Abdominal, Appendectomy, Bowel Surgery, Eye Surgery, Gallbladder, Orthopedic, Renal Respiratory: Yes Pulmonary Embolism Currently Using CPAP: No Currently Using BIPAP: No Cardiac: Yes Chronic Edema/Swelling, Deep Vein Thrombosis, High Cholesterol, Hypertension Neurological: Yes (NO SEIZURE FOR SEVERAL YEARS BUT TAKES MEDICINE) Seizure Disorder Reproductive Disorders: No Sexually Transmitted Disease: No HIV/AIDS: No Genitourinary: Yes Kidney Stones Gastrointestinal: Yes (COLON RESECTION/ILEOSTOMY/REVERSAL;CHRONIC ABDOMINAL WOUND;VENTRAL HERNIA) Abdominal Hernia, Gastroesophageal Reflux, Diverticulosis, Polyps Musculoskeletal: Yes (ARTHRITIS IN FEET & BACK;BACK SURGERY;RIGHT WRIST/TENDON REPAIR;L KNEE SURG) Degenerate Disk Disease, Arthritis, Chronic Back Pain Endocrine: Yes (MORBID OBESITY) HEENT: Yes (BILATERAL CATARACT SURGERY) Cataract Cancer: No Psychosocial: Yes Anxiety Integumentary: No Blood Disorders: No Adverse Reaction/Blood Tranf: No Family Medical History Arthritis G8 SISTER Asthma G8 SISTER Colon cancer 19 MOTHER FH: breast cancer 19 MOTHER Heart attack 19 FATHER Hypertension G8 SISTER Psychosocial problem G8 BROTHER (DOWN'S SYNDROME) No Family History of: AIDS Alcoholism Alzheimer's disease Completed stroke Diabetes mellitus Kidney disease Myocardial infarction Parkinson's disease Prostate cancer Respiratory disorder Seizure disorder Thyroid disease Heart Disease, Cancer, Hypertension, Psychiatric Problems SOCIAL HISTORY : -DENIES SMOKING -DENIES ETOH USE -DENIES DRUG USE PAST SURGICAL HISTORY: -BACK SURGERY/FUSION X 1--LUMBAR SPINE -COLON RESECTION WITH COLOSTOMY AND LATER REVERSAL FOR DIVERTICULTIS -VENTRAL HERNIA REPAIR -CHOLECYSTECTOMY -APPENDECTOMY -LITHOTRIPSY -BILATERAL CATARACT SURGERY -LEFT KNEE SURGERY -RIGHT WRIST SURGERY / TENDON REPAIR Physical Exam Vital Signs Vital Signs - First Documented 02/20/22 17:58 Temp 37.0 Pulse 75 Resp 16 B/P (MAP) 162/97 (118) Pulse Ox 97 O2 Delivery Room Air Capillary Refill : Less Than 3 Seconds Height, Weight, BMI Height: 5'11.00" Weight: 313lbs. 0.0oz. 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 Norm as Tested Skin: Normal Color, Warm/Dry Progress/Results/Core Measures Suspected Sepsis SIRS Temperature: Pulse: 75 Respiratory Rate: 16 Laboratory Tests 02/20/22 18:29: White Blood Count 8.0 Blood Pressure 162 /97 Mean: 118 Laboratory Tests 02/20/22 18:29: Creatinine 0.86, INR Comment 1.0, Platelet Count 185, Total Bilirubin 0.5 Results/Orders Lab Results Laboratory Tests Test 02/20/22 18:29 02/20/22 18:46 02/20/22 18:52 Range/Units White Blood Count 8.0 4.3-11.0 10^3/uL Red Blood Count 4.72 4.30-5.52 10^6/uL Hemoglobin 15.7 13.3-17.7 g/dL Hematocrit 46 40-54 % Mean Corpuscular Volume 98 80-99 fL Mean Corpuscular Hemoglobin 33 25-34 pg Mean Corpuscular Hemoglobin Concent 34 32-36 g/dL Red Cell Distribution Width 13.2 10.0-14.5 % Platelet Count 185 130-400 10^3/uL Mean Platelet Volume 9.8 9.0-12.2 fL Immature Granulocyte % (Auto) 0 % Neutrophils (%) (Auto) 64 42-75 % Lymphocytes (%) (Auto) 25 12-44 % Monocytes (%) (Auto) 9 0-12 % Eosinophils (%) (Auto) 1 0-10 % Basophils (%) (Auto) 1 0-10 % Neutrophils # (Auto) 5.2 1.8-7.8 10^3/uL Lymphocytes # (Auto) 2.0 1.0-4.0 10^3/uL Monocytes # (Auto) 0.7 0.0-1.0 10^3/uL Eosinophils # (Auto) 0.1 0.0-0.3 10^3/uL Basophils # (Auto) 0.1 0.0-0.1 10^3/uL Immature Granulocyte # (Auto) 0.0 0.0-0.1 10^3/uL Prothrombin Time 13.2 12.2-14.7 SEC INR Comment 1.0 0.8-1.4 Activated Partial Thromboplast Time 24 24-35 SEC D-Dimer 0.51 H 0.00-0.49 UG/ML Sodium Level 139 135-145 MMOL/L Potassium Level 4.0 3.6-5.0 MMOL/L Chloride Level 109 H 98-107 MMOL/L Carbon Dioxide Level 22 21-32 MMOL/L Anion Gap 8 5-14 MMOL/L Blood Urea Nitrogen 13 7-18 MG/DL Creatinine 0.86 0.60-1.30 MG/DL Estimat Glomerular Filtration Rate 99 BUN/Creatinine Ratio 15 Glucose Level 97 70-105 MG/DL Calcium Level 9.0 8.5-10.1 MG/DL Corrected Calcium 9.2 8.5-10.1 MG/DL Magnesium Level 2.2 1.6-2.4 MG/DL Total Bilirubin 0.5 0.1-1.0 MG/DL Aspartate Amino Transf (AST/SGOT) 20 5-34 U/L Alanine Aminotransferase (ALT/SGPT) 27 0-55 U/L Alkaline Phosphatase 107 40-136 U/L Total Creatine Kinase 72 30-200 U/L Creatine Kinase MB 0.6 <6.6 NG/ML Myoglobin 63.3 10.0-92.0 NG/ML Troponin I < 0.028 <0.028 NG/ML B-Type Natriuretic Peptide 16.9 <100.0 PG/ML Total Protein 7.6 6.4-8.2 GM/DL Albumin 3.8 3.2-4.5 GM/DL Influenza Type A (RT-PCR) Not Detected Not Detecte Influenza Type B (RT-PCR) Not Detected Not Detecte SARS-CoV-2 RNA (RT-PCR) Not Detected Not Detecte Urine Color ORANGE Urine Clarity SL CLOUDY Urine pH 5.5 5-9 Urine Specific [place] >=1.030 1.016-1.022 Urine Protein NEGATIVE NEGATIVE Urine Glucose (UA) NEGATIVE NEGATIVE Urine Ketones NEGATIVE NEGATIVE Urine Nitrite NEGATIVE NEGATIVE Urine Bilirubin NEGATIVE NEGATIVE Urine Urobilinogen 0.2 < = 1.0 MG/DL Urine Leukocyte Esterase NEGATIVE NEGATIVE Urine RBC (Auto) TRACE-I H NEGATIVE Urine RBC RARE /HPF Urine WBC RARE /HPF Urine Squamous Epithelial Cells 2-5 /HPF Urine Crystals NONE /LPF Urine Bacteria FEW H /HPF Urine Casts NONE /LPF Urine Mucus SMALL H /LPF Urine Culture Indicated YES My Orders Orders - HERMELINDA MEJIAS DO Ed Iv/Invasive Line Start (02/20/22 18:38) Ekg Tracing (02/20/22 18:38) Monitor-Rhythm Ecg Trace Only (02/20/22 18:38) Bnp Bay (02/20/22 18:38) Cbc With Automated Diff (02/20/22 18:38) Comprehensive Metabolic Panel (02/20/22 18:38) Creatine Kinase (02/20/22 18:38) Creatine Kinase Mb (02/20/22 18:38) Fibrin Degradation Products (02/20/22 18:38) Magnesium (02/20/22 18:38) Protime With Inr (02/20/22 18:38) Partial Thromboplastin Time (02/20/22 18:38) Ua Culture If Indicated (02/20/22 18:38) Myoglobin Serum (02/20/22 18:38) Troponin I Bay (02/20/22 18:38) Chest 1 View, Ap/Pa Only (02/20/22 18:38) Covid 19 Inhouse Test (02/20/22 18:38) Influenza A And B By Pcr (02/20/22 18:38) Isolation Central Supply Req (02/20/22 18:38) Ct Angio Chest W (R/O Pe) (02/20/22 19:47) Iohexol Injection (Omnipaque 350 Mg/Ml 1 (02/20/22 20:00) Received Contrast (Hold Metformin- Contr (02/20/22 20:00) Ns (Ivpb) (Sodium Chloride 0.9% Ivpb Bag (02/20/22 20:00) Urine Culture (02/20/22 18:52) Medications Given in ED Current Medications Medications Dose Ordered Sig/Giles Route Start Time Stop Time Status Last Admin Dose Admin Iohexol 100 ml ONCE ONCE IV 02/20/22 20:00 02/20/22 20:01 DC 02/20/22 20:13 88 ML Sodium Chloride 100 ml ONCE ONCE IV 02/20/22 20:00 02/20/22 20:01 DC 02/20/22 20:13 90 ML Vital Signs/I&O 02/20/22 02/20/22 17:58 20:40 Temp 37.0 37.0 Pulse 75 75 Resp 16 16 B/P (MAP) 162/97 (118) 155/78 Pulse Ox 97 97 O2 Delivery Room Air Room Air Capillary Refill : Less Than 3 Seconds Blood Pressure Mean: 118 Progress Note : Progress Note UNEVENTFUL ER STAY PT HAD NO COMPLAINTS FOR ENTIRE ER STAY VITALS STABLE, BP IS 155/78 AT DISMISSAL, PULSE IN 70'S, O2 SATS 98% ON ROOM AIR QUESTION WHETHER PROPER SIZED BLOOD PRESSURE CUFF WAS USED AT DENTIST'S OFFICE, WHEN THEY HAD READING OF 190/110, REPEAT BP DONE BY SOMEONE ELSE WAS SIGNIFICANTLY LOWER AND MORE IN NORMAL RANGE. PT HAS NOT HAD ANY BLOOD PRESSURE READINGS IN THE 190'S/100'S HERE. REVIEWED ALL TEST RESULTS, ANTICIPATED COURSE, NEED FOR FOLLOW UP AND FURTHER EVALUATION OF BLOOD PRESSURE, AND RETURN PRECAUTIONS ECG Initial ECG Impression Date: Feb 20, 2022 Initial ECG Impression Time: 18:46 Initial ECG Rate: 75 Initial ECG Rhythm: Normal Sinus Initial ECG Comparisson: Unchanged (SAME 12/02/2011) Diagnostic Imaging Comments CXR--PER RADIOLOGIST REPORT AT 1917 FINDINGS: Heart size and pulmonary vasculature are normal. The lungs are clear without consolidation, pleural effusion, or pneumothorax. The osseous structures are intact. IMPRESSION: 1. No acute radiographic abnormality in the chest. CT ABDOMEN/PELVIS--PER RADIOLOGIST REPORT AT 2030 FINDINGS: Vascular: Suboptimal evaluation of pulmonary artery secondary to bolus timing. There are no obvious filling defects within the main or proximal pulmonary arteries. Distal pulmonary arteries are limited in evaluation. The thoracic aorta is normal in caliber. Thyroid: The thyroid is normal. Mediastinum: Heart size is normal without significant pericardial effusion. No suspicious lymphadenopathy. Lungs and airways: The lungs are clear without consolidation, pleural effusion, or pneumothorax. There is atelectasis within the dependent lungs. The airways are normal. Upper abdomen: There are bilateral adrenal nodules which are indeterminate. Musculoskeletal: Degenerative changes of the spine without suspicious osseous lesion or compression fracture. IMPRESSION: 1. No findings of pulmonary embolus. Evaluation of the distal pulmonary arteries is limited secondary to bolus timing. 2. No other acute abnormality in the chest. 3. Stable bilateral adrenal nodules. Reviewed: Reviewed by Me Departure Impression Primary Impression: HTN (hypertension) Disposition: HOME, SELF-CARE Condition: Stable Departure-Patient Inst. Decision time for Depature: 20:32 Referrals: INGRID DOSHI MD (PCP/Family) Primary Care Physician Patient Instructions: High Blood Pressure (DC), Controlling Your Blood Pressure Through Lifestyle Add. Discharge Instructions: CONTINUE YOUR REGULAR MEDICATIONS PRESCRIBED FOLLOW UP WITH DR. DOSHI FOR FURTHER CARE--CALL IN THE MORNING TO SCHEDULE AN APPOINTMENT All discharge instructions reviewed with patient and/or family. Voiced understanding. HERMELINDA MEJIAS DO Feb 20, 2022 19:10
[2022-02-20 19:32] LABS: CREATINE KINASE 72 U/L (30-200)
[2022-02-20] MEDS ORDERED: HOLD METFORMIN - RECEIVED CONTRAST 20 ML VIAL IV SCH (20:00)
[2022-02-20] MEDS ORDERED: IOHEXOL 350 MG/ML 100 ML (OMNIPAQUE 350) VIAL IV ONE (20:00)
[2022-02-20] MEDS ORDERED: NS 100 ML (IVPB) BAG IV ONE (20:00)
[2022-02-20 20:09] LABS: BACTERIA,URINE FEW /HPF; RBC,URINE RARE /HPF; WBC,URINE RARE /HPF
--- NOTE | 2022-02-20 20:23 | Diagnostic Imaging Report ---
EXAMINATION: CT angiography of the chest. TECHNIQUE: Contrast enhanced thin section helical images were obtained through the chest with intravenous contrast timed for the optimal opacification of the arterial structures per CTA protocol. Post-processing, reconstructions and interpretation of angiographic images of the vessels was performed. 3D MIP reconstructions were performed and reviewed. All CT scans use one or more of the following dose optimizing techniques: automated exposure control, MA and/or KvP adjustment based on a patient size and exam type, or iterative reconstruction. HISTORY: DYSPNEA, HTN, HX OF PE COMPARISON: None available. FINDINGS: Vascular: Suboptimal evaluation of pulmonary artery secondary to bolus timing. There are no obvious filling defects within the main or proximal pulmonary arteries. Distal pulmonary arteries are limited in evaluation. The thoracic aorta is normal in caliber. Thyroid: The thyroid is normal. Mediastinum: Heart size is normal without significant pericardial effusion. No suspicious lymphadenopathy. Lungs and airways: The lungs are clear without consolidation, pleural effusion, or pneumothorax. There is atelectasis within the dependent lungs. The airways are normal. Upper abdomen: There are bilateral adrenal nodules which are indeterminate. Musculoskeletal: Degenerative changes of the spine without suspicious osseous lesion or compression fracture. IMPRESSION: 1. No findings of pulmonary embolus. Evaluation of the distal pulmonary arteries is limited secondary to bolus timing. 2. No other acute abnormality in the chest. 3. Stable bilateral adrenal nodules. Dictated by: Dictated on workstation # [id number]
[2022-02-20 20:40] VITALS: BP 155/78
== END 2022-02-20 20:42 | disposition home or self-care (01) ==
LOC: EDUNIT# 17:47 → ER 17:49
DX: I10 Essential (primary) hypertension (principal); E66.01 Morbid (severe) obesity due to excess calories; Z86.711 Personal history of pulmonary embolism; Z86.718 Personal history of other venous thrombosis and embolism; Z79.01 Long term (current) use of anticoagulants; Z79.82 Long term (current) use of aspirin; Z68.42 Body mass index [BMI] 45.0-49.9, adult; Z20.822 Contact with and (suspected) exposure to COVID-19
CPT/HCPCS: 36415; 71045; 71275; 80053; 81000; 82550; 82553; 83735; 83874; 83880; 84484; 85025; 85379; 85610; 85730; 87088; 87636; 93005; 93041

== ENCOUNTER → 2022-02-21 | Outpatient (CLI) | payer BC | LOC: CARD 14:30 | PROVIDERS: ATTEND Internal Medicine Cardiovascular Disease | DX: I11.9 Hypertensive heart disease without heart failure (principal); I51.7 Cardiomegaly | CPT/HCPCS: 93306 ==

== ENCOUNTER 2022-08-17 08:59 | Emergency (ER) | payer BC, OTHER ==
[~2022-08-17] VITALS: Ht 185.4 cm; Wt 158.7 kg
--- NOTE | 2022-08-17 09:54 | ED Lower Extremity ---
General Chief Complaint: Lower Extremity Stated Complaint: RIGHT KNEE Nursing Triage Note: FELT A POPPING SOUND AND THEN FELT SEVERE PAIN WITH WEIGHT BEARING ON HIS RIGHT KNEE. Source: patient Exam Limitations: no limitations History of Present Illness Date Seen by Provider: Aug 17, 2022 Time Seen by Provider: 09:12 Initial Comments Here with right knee pain. States he was going to the [employer] this morning and was heading out when he felt his knee pop and had severe pain especially with bearing weight. He was able to prevent himself from falling by holding onto the house. He did take 2 Tylenol for pain and that has not helped. He is using a walker currently to help with ambulation. He has history of meniscus tear in the left leg which had similar pain. Pain noted to the lateral aspect and posterior aspect of the right knee. He is able to bend and lift his knee and leg but has pain on flexion. Denies other injury or concerns. Does report that the knee has been hurting over the last couple of weeks but did the popping today. Onset: this morning Severity: moderate Method of Injury: unknown Modifying Factors: Improves With Immobilization; Worse With Movement Allergies and Home Medications Allergies Coded Allergies: No Known Drug Allergies (Verified , 08/17/22) Patient Home Medication List Home Medication List Reviewed: Yes Atorvastatin Calcium (Atorvastatin Calcium) 10 Mg Tablet, 10 MG PO HS, (Reported) Entered as Reported by: BRANDON BAKER on 11/05/18 1550 Cyclobenzaprine HCl (Cyclobenzaprine HCl) 5 Mg Tablet, 5 MG PO TID PRN for MUSCLE SPASMS, (Reported) Entered as Reported by: BRANDON BAKER on 11/05/18 1550 Lactobacillus Combo No.11 (Probiotic) 1 Each Cap.sprink, 1 CAP PO BID, (Reported) Entered as Reported by: MAURY SHELTON on 11/10/14 1926 Metoprolol Succinate (Metoprolol Succinate) 25 Mg Tab.er.24h, 25 MG PO DAILY, (Reported) Entered as Reported by: BRANDON BAKER on 11/05/18 1550 Nitrofurantoin Monohyd/M-Cryst (Macrobid 100 mg Capsule) 100 Mg Capsule, 1 TAB PO BID Prescribed by: JUSTICE ROLDAN on 03/02/19 1012 Nitrofurantoin Monohyd/M-Cryst (Macrobid 100 mg Capsule) 100 Mg Capsule, 1 TAB PO BID Prescribed by: CHAS FREITAS on 03/09/19 1054 Pantoprazole Sodium (Pantoprazole Sodium) 40 Mg Tablet.dr, 40 MG PO BID, (Reported) Entered as Reported by: BRANDON BAKER on 11/05/18 1550 Phenytoin Sodium Extended (Phenytek) 300 Mg Capsule, 300 MG PO HS, (Reported) Entered as Reported by: MARINA KELLEY on 11/11/14 1022 Phenytoin Sodium Extended (Phenytek) 200 Mg Capsule, 400 MG PO HS, (Reported) Entered as Reported by: BALJEET FLOWER on 02/27/16 1419 Tramadol HCl (Tramadol HCl) 50 Mg Tablet, 50-100 MG PO Q4H Prescribed by: JUSTICE ROLDAN on 03/02/19 1012 Review of Systems Constitutional: no symptoms reported Respiratory: no symptoms reported Cardiovascular: no symptoms reported Musculoskeletal: joint pain, joint swelling; No muscle weakness Skin: No change in color, No lesions Psychiatric/Neurological: Denies Numbness, Denies Paresthesia Past [place]-Gkftlc-Petofb Hx Patient Social History Tobacco Use?: No Use of E-Cig and/or Vaping dev: No Substance use?: No Alcohol Use?: No Pt feels they are or have been: No Immunizations Up To Date Tetanus Booster (TDap): More than 5yrs Seasonal Allergies Seasonal Allergies: Yes Past Medical History Surgeries: Yes (BOWEL RESECT/COLOSTOMY/REVERSAL,VENTRAL HERNIA, BACK,TENDON/HAND REPAIR ) Abdominal, Appendectomy, Bowel Surgery, Eye Surgery, Gallbladder, Orthopedic, Renal Respiratory: Yes Pulmonary Embolism Currently Using CPAP: No Currently Using BIPAP: No Cardiac: Yes Chronic Edema/Swelling, Deep Vein Thrombosis, High Cholesterol, Hypertension Neurological: Yes (NO SEIZURE FOR SEVERAL YEARS BUT TAKES MEDICINE) Seizure Disorder Reproductive Disorders: No Sexually Transmitted Disease: No HIV/AIDS: No Genitourinary: Yes Kidney Stones Gastrointestinal: Yes (COLON RESECTION/ILEOSTOMY/REVERSAL;CHRONIC ABDOMINAL WOUND;VENTRAL HERNIA) Abdominal Hernia, Gastroesophageal Reflux, Diverticulosis, Polyps Musculoskeletal: Yes (ARTHRITIS IN FEET & BACK;BACK SURGERY;RIGHT WRIST/TENDON REPAIR;L KNEE SURG) Degenerate Disk Disease, Arthritis, Chronic Back Pain Endocrine: Yes (MORBID OBESITY) HEENT: Yes (BILATERAL CATARACT SURGERY) Cataract Cancer: No Psychosocial: Yes Anxiety Integumentary: No Blood Disorders: No Adverse Reaction/Blood Tranf: No Family Medical History Reviewed Nursing Family Hx Arthritis G8 SISTER Asthma G8 SISTER Colon cancer 19 MOTHER FH: breast cancer 19 MOTHER Heart attack 19 FATHER Hypertension G8 SISTER Psychosocial problem G8 BROTHER (DOWN'S SYNDROME) No Family History of: AIDS Alcoholism Alzheimer's disease Completed stroke Diabetes mellitus Kidney disease Myocardial infarction Parkinson's disease Prostate cancer Respiratory disorder Seizure disorder Thyroid disease Heart Disease, Cancer, Hypertension, Psychiatric Problems SOCIAL HISTORY : -DENIES SMOKING -DENIES ETOH USE -DENIES DRUG USE PAST SURGICAL HISTORY: -BACK SURGERY/FUSION X 1--LUMBAR SPINE -COLON RESECTION WITH COLOSTOMY AND LATER REVERSAL FOR DIVERTICULTIS -VENTRAL HERNIA REPAIR -CHOLECYSTECTOMY -APPENDECTOMY -LITHOTRIPSY -BILATERAL CATARACT SURGERY -LEFT KNEE SURGERY -RIGHT WRIST SURGERY / TENDON REPAIR Physical Exam Vital Signs Vital Signs - First Documented 08/17/22 09:05 Temp 36.4 Pulse 76 Resp 18 B/P (MAP) 129/107 (114) Pulse Ox 96 O2 Delivery Room Air Capillary Refill : Less Than 3 Seconds Height, Weight, BMI Height: 5'11.00" Weight: 313lbs. 0.0oz. [id number]; 46.00 BMI Method:Stated General Appearance: WD/WN, no apparent distress Cardiovascular: regular rate, rhythm, no murmur Respiratory: lungs clear, normal breath sounds Knees: left knee non-tender, left knee normal inspection, left knee normal range of motion; right knee pain, right knee soft tissue tenderness, right knee swelling, right knee other (Tenderness lateral aspect and posterior to knee. Negative laxity. Does have pain progress with tibia to femur.) Progress/Results/Core Measures Results/Orders My Orders Orders - JEROMY OCAMPO MD Knee, Right, 3 Views (08/17/22 09:19) Oxycodone Immediate Rel Tablet (Oxyir Ta (08/17/22 09:30) Medications Given in ED Current Medications Medications Dose Ordered Sig/Giles Route Start Time Stop Time Status Last Admin Dose Admin Oxycodone HCl 5 mg ONCE ONCE PO 08/17/22 09:30 08/17/22 09:31 DC 08/17/22 09:30 5 MG Vital Signs/I&O 08/17/22 09:05 Temp 36.4 Pulse 76 Resp 18 B/P (MAP) 129/107 (114) Pulse Ox 96 O2 Delivery Room Air Blood Pressure Mean: 114 Progress Progress Note : Progress Note Seen and evaluated. Oxycodone immediate release 5 mg p.o. now. X-ray right knee ordered. Anticipate right knee immobilizer and the need for follow-up with orthopedics and this was discussed with the patient. He does have a walker at bedside. Monitor patient. 0955: X-ray shows no acute fracture on my interpretation of the right knee x-ray. We will go ahead and place knee immobilizer. 1016: Radiology report reviewed. No obvious fractures with them either. Pain is better after pain medicine. Knee immobilizer placed. Disc harged home with return precautions. Patient verbalized understanding instructions and agreement with plan. Diagnostic Imaging Diagonstic Imaging: Xray Plain Films/CT/US/NM/MRI: knee Comments NAME: SEVEN HENRY JR MED REC#: [id number] PT STATUS: REG ER : 1960 PHYSICIAN: JEROMY OCAMPO MD ADMIT DATE: 08/17/22/ER Draft Date of Exam:08/17/22 KNEE, RIGHT, 3 VIEWS CLINICAL INDICATION: Patient complains of right knee pain. EXAM: X-ray of the right knee, 3 views. COMPARISON: None. FINDINGS AND IMPRESSION: There is no acute fracture or dislocation. There is no significant knee effusion. There is mild soft tissue swelling involving the right knee soft tissue. Dictated on workstation # [id number] Dict: 08/17/22 0954 Trans: 08/17/22 1012 [id number] Interpreted by: CLARA WONG MD Electronically signed by: Reviewed: Reviewed by Me Departure Impression Primary Impression: Internal derangement of right knee Disposition: 01 HOME, SELF-CARE Condition: Stable Departure-Patient Inst. Decision time for Depature: 10:17 Referrals: INGRID DOSHI MD (PCP/Family) Primary Care Physician SUKHDEV MAURO MD, MICHAEL P MD Patient Instructions: Internal Derangement of the Knee (DC) Add. Discharge Instructions: All discharge instructions reviewed with patient and/or family. Voiced understanding. Take medications as directed. You may continue ice to right knee 20 minutes/h as needed to reduce swelling and pain. Use knee immobilizer when up and moving around. You do not need to keep that on when you are not up and moving. Follow-up with one of the orthopedist listed above or of your choosing. Call office on Friday for appointment. If you are not taking the prescribed pain medicine, you may take Tylenol/acetaminophen 1000 mg every 6-8 hours as needed for pain. Do not take both at the same time as they both have acetaminophen in them. Scripts Hydrocodone/Acetaminophen (Hydrocodone-Acetamin 5-325 mg) 5 Mg-325 Mg Tablet 1 TAB PO Q6H PRN for PAIN-MODERATE (5-7) for 7 Days, #10 TAB 0 Refills Prov: JEROMY OCAMPO MD 08/17/22 JEROMY OCAMPO MD Aug 17, 2022 09:54
--- NOTE | 2022-08-17 10:13 | Diagnostic Imaging Report ---
CLINICAL INDICATION: Patient complains of right knee pain. EXAM: X-ray of the right knee, 3 views. COMPARISON: None. FINDINGS AND IMPRESSION: There is no acute fracture or dislocation. There is no significant knee effusion. There is mild soft tissue swelling involving the right knee soft tissue. Dictated by: Dictated on workstation # [id number]
[2022-08-17] MEDS ORDERED: ACHD5005 PO (10:18)
[2022-08-17 10:35] VITALS: BP 129/90
== END 2022-08-17 10:38 | disposition home or self-care (01) ==
LOC: EDUNIT# 08:59 → ER 09:01
DX: M23.91 Unspecified internal derangement of right knee (principal); E66.01 Morbid (severe) obesity due to excess calories; Z68.42 Body mass index [BMI] 45.0-49.9, adult; X50.1XXA Overexertion from prolonged static or awkward postures, initial encounter
CPT/HCPCS: 73562; 99282; L1830